=== PATIENT | male | born 1950 | race African-American/Black ===

== ENCOUNTER 2016-09-29 17:42 | Inpatient (IN) | payer MEDICARE, OTHER ==
[~2016-09-29] VITALS: Ht 175.3 cm; Wt 91.6 kg
[~2016-09-29 17:42] MED LIST: ACETAMINOP650 MG/20. GT; ACETAMINOPHEN325 M1 GT; ACIDOPHILUS1 EAC6 GT; ALBUTEROL2.5 MG/3 M HHN; ALBUTEROL2.5 MG/3 M INH; ATROVENT HFA12.9 GM IH; BISACODYL5 MG ORAL; BISACODYL5 MG RECTAL; CALCIUM + D SO1 EACH GT; CARAFATE1 G1 GT; CARDURA1 MG GT; CATAPRES0.1 MG GT; CEFEPIME HCL1 GM IVPB; CEFEPIME-D1 GM/50 ML IVPB; CLOTRIMAZOLE15 GM TOPIC; COLISTIN150 MG INH; COMBIVENT2 PUFFS INH; COMPLETE M9 MG/15 M1 GT; CRANBERRY450 M4 PO; CULTURELLE1 EACH GT; DEXTROSE 50%-W500 ML IV; DOXAZOSIN MESYLA1 MG GT; DSS100 MG GT; DULCOLAX STOOL100 M1 RECTAL; DULCOLAX10 MG RC; FINASTERIDE5 MG GT; FLAGYL500 MG GT; FLEET ENEMA133 ML RECTAL; FLOMAX0.4 MG GT; HEPARIN SO5000 UNIT2 SUBQ; HEPARIN1000 UNIT/ SQ; LANTUS SOL100 UNIT/1 SUBQ; LEVEMIR FL100 UNIT/1 SUBQ; LEVEMIR100 UNIT/1 SUBQ; LOPRESSOR25 M1 GT; METOPROLOL SUCC25 MG GT; MILK OF MA400 MG/51 GT; MOM30 ML GT; MULTIVITAMINS1 EAC8 GT; NORVASC2.5 MG GT; NORVASC2.5 MG ORAL; NOVOLOG100 UNIT/3 SUBQ; NOVOLOG100 UNITS1 SUBQ; POTASSIUM CHLO10 MEQ GT; PROMOD946 ML GT; PROSCAR5 MG GT; ROBITUSSIN15 M1 GT; ROBITUSSIN15 M1 PO; SALINE 10ML FLU10 ML IVF; TUMS500 MG GT; TYLENOL 8 HOUR650 M1 GT; TYLENOL650 MG/20. GT; VITAMIN C500 M1 GT; [UNRECOGNIZED DRUG - OTHER] GT; [UNRECOGNIZED DRUG - OTHER] GT
[2016-09-29] MEDS ORDERED: JANUVIA25 MG GT (18:00)
[2016-09-29 18:08] LABS: APPEARANCE,URINE CLEAR; KETONES,URINE NEGATIVE (NEGATIVE); LEUKOCYTE ESTERASE ,URINE 1+ (NEGATIVE); NITRITE,URINE POSITIVE (NEGATIVE); PH,URINE 5 (4.5-8.0); PROTEIN,URINE 2+ (NEGATIVE); UROBILINOGEN,URINE NORMAL MG/DL (0.0-1.0)
[2016-09-29 18:10] LABS: EOSINOPHILS % (AUTO) 0.6 % (0.0-3.0); LYMPHOCYTES % (AUTO) 15.2 % (20.0-45.0); MEAN CORPUSCULAR HEMOGLOBIN 32.3 PG (27.0-31.0); MEAN CORPUSCULAR HGB CONC 34.5 G/DL (32.0-36.0); MEAN CORPUSCULAR VOLUME 94 FL (80-99); MEAN PLATELET VOLUME 12.1 FL (6.5-10.1); MONOCYTES % (AUTO) 8.4 % (1.0-10.0); NEUTROPHILS % (AUTO) 74.8 % (45.0-75.0); PLATELET COUNT 242 K/UL (150-450); RED BLOOD COUNT 4.61 M/UL (4.70-6.10); RED CELL DISTRIBUTION WIDTH 13.8 % (11.6-14.8); WHITE BLOOD COUNT 16.4 K/UL (4.8-10.8)
[2016-09-29 18:14] LABS: BACTERIA,URINE FEW /HPF; YEAST,URINE MODERATE /HPF
[2016-09-29 18:15] LABS: TROPONIN I < 0.30 ng/mL (<=0.30)
[2016-09-29 18:19] LABS: ALANINE AMINOTRANSFERASE 29 U/L (3-41); ALBUMIN/GLOBULIN RATIO 0.9 (1.0-2.7); ANION GAP 14 (5-15); ASPARTATE AMINO TRANSFERASE 37 U/L (5-40); CARBON DIOXIDE 29 mEQ/L (20-30); CHLORIDE 93 mEQ/L (98-107); CREATININE 0.9 mg/dL (0.7-1.2); GLOMERULAR FILTRATION RATE > 60 mL/min (>60); HEMOLYSIS 7; SODIUM 136 mEQ/L (135-145); TOTAL PROTEIN 7.1 g/dL (6.6-8.7)
[2016-09-29 18:29] LABS: CKMB 2.2 ng/mL (< 6.7)
[2016-09-29] MEDS ORDERED: Acetaminophen 650mg/20.3ml GT ONE (18:30)
[2016-09-29] MEDS ORDERED: Cefepime HCl 1 GM in NS 55 ML IV ONE (19:00)
[2016-09-29] MEDS ORDERED: Azithromycin 500 MG in NS 275 ML IV ONE (19:00)
[2016-09-29 19:01] VITALS: BP 117/70
[2016-09-29] MEDS ORDERED: Cefepime 1gm vial ONE (19:01)
[2016-09-29] MEDS ORDERED: Milk of Magnesia 30ml Ud GT PRN (19:15)
[2016-09-29] MEDS ORDERED: Acetaminophen 650mg/20.3ml GT PRN (19:15)
[2016-09-29] MEDS ORDERED: Albuterol ud Inhalation HHN PRN (19:15)
[2016-09-29 20:31] VITALS: BP 115/67
[2016-09-29] MEDS ORDERED: Azithromycin Inj IV ONE (20:31)
[2016-09-29] MEDS ORDERED: Doxazosin 1mg Tab GT SCH (21:00)
[2016-09-29] MEDS ORDERED: Levemir Flexpen SUBQ SCH ×2 (21:00→23:00)
[2016-09-29] MEDS ORDERED: Heparin 5000 units/ml inj SUBQ SCH (21:00)
[2016-09-29 21:08] VITALS: BP 117/71
[2016-09-29 21:36] VITALS: BP 120/78
--- NOTE | 2016-09-29 21:50 | Emergency Room Report ---
History of Present Illness General Chief Complaint: Altered Level of Consciousness Source: EMS Present Illness HPI 66-year-old male presents ED for evaluation. Per EMS patient noted to be tachycardic with fever at skilled nursing starting today. Patient has trach. has G-tube. patient febrile in triage. Patient unable to provide any additional history at this time. No reported pain or shortness of breath. No nausea vomiting. No other aggravating or relieving factors. No other associated symptoms Allergies: Coded Allergies: No Known Allergies (Unverified , 02/11/13) Patient History Past Medical History: DM, COPD, seizures Past Surgical History: other - trach, gtube Pertinent Family History: none Social History: Denies: alcohol use, drug use, smoking Immunizations: UTD Reviewed Nursing Documentation: PMH: Agreed, PSxH: Agreed Nursing Documentation-PMH Past Medical History: No History, Except For Hx Cardiac Problems: Yes Hx Hypertension: Yes - RESP FAILURE, PNEUMONIA Hx Pacemaker: No Hx Asthma: No Hx COPD: Yes Hx Diabetes: Yes - TYPE 2, UTI, PARAPLEGIA Hx Cancer: No Hx Gastrointestinal Problems: Yes - G-tube Hx Dialysis: No Hx Neurological Problems: Yes - Paraplegia, Encephalopathy Hx Cerebrovascular Accident: Yes Hx Dementia: Yes Hx Seizures: Yes Hx Epilepsy: Yes Hx Paralysis: Yes - quadriplegic Hx Aphasia: Yes Hx Neurologic Surgery: No Hx Brain Shunt: No Review of Systems All Other Systems: negative except mentioned in HPI Physical Exam Vital Signs Date Time Temp Pulse Resp B/P Pulse Ox O2 Delivery O2 Flow Rate FiO2 09/29/16 17:35 100.9 123 28 119/80 97 09/29/16 19:01 Trach Collar 6.0 Sp02 EP Interpretation: reviewed, normal General Appearance: no apparent distress, lethargic Head: normocephalic Eyes: bilateral eye PERRL, bilateral eye normal inspection ENT: hearing grossly normal, normal pharynx, no angioedema, normal voice Neck: tracheotomy Respiratory: crackles Cardiovascular #1: no edema, tachycardia Gastrointestinal: normal inspection Rectal: deferred Genitourinary: no CVA tenderness Musculoskeletal: normal inspection Neurologic: other - ams Psychiatric: other - ams Skin: normal inspection Lymphatic: normal inspection Medical Decision Making Diagnostic Impression: Primary Impression: UTI (urinary tract infection) Qualified Codes: N39.0 - Urinary tract infection, site not specified Additional Impressions: Pneumonia Qualified Codes: J18.9 - Pneumonia, unspecified organism Leukocytosis Qualified Codes: D72.829 - Elevated white blood cell count, unspecified Respiratory failure, chronic Qualified Codes: J96.10 - Chronic respiratory failure, unspecified whether with hypoxia or hypercapnia ER Course Hospital Course 66-year-old male presents to ED with tachycardia, fever times one day Differential diagnoses include: Pneumonia, UTI, sepsis, dehydration, MO/ unstable angina Clinical course Patient placed on stretcher. On bus monitor with stable vitals are ED course. After initial history and physical, I ordered labs, IV fluids, EKG, chest x-ray, blood cultures, UA. Labs - electrolytes ok, noted leukocytosis, troponins negative, UA grossly positive for UTI EKG - sinus tachycardia CXR - infiltrate noted Abx given. tachycardia improving with IVFs. Case discussed with Dr Lee and they agreed to admit patient to their service for further care and support I feel this is a highly complex case requiring extensive working including EKG/ Rhythm strip, Xray/CT/US, Blood/urine lab work, repeat exams while in ED, and administration of strong opiates/narcotics for pain control, admission to hospital or close patient follow up. Diagnosis - UTI, pneumonia, leukocytosis, resp failure chronic Patient admitted to telemetry in serious condition Labs Test 09/29/16 17:30 White Blood Count 16.4 K/UL (4.8-10.8) Red Blood Count 4.61 M/UL (4.70-6.10) Hemoglobin 14.9 G/DL (14.2-18.0) Hematocrit 43.1 % (42.0-52.0) Mean Corpuscular Volume 94 FL (80-99) Mean Corpuscular Hemoglobin 32.3 PG (27.0-31.0) Mean Corpuscular Hemoglobin Concent 34.5 G/DL (32.0-36.0) Red Cell Distribution Width 13.8 % (11.6-14.8) Platelet Count 242 K/UL (150-450) Mean Platelet Volume 12.1 FL (6.5-10.1) Neutrophils (%) (Auto) 74.8 % (45.0-75.0) Lymphocytes (%) (Auto) 15.2 % (20.0-45.0) Monocytes (%) (Auto) 8.4 % (1.0-10.0) Eosinophils (%) (Auto) 0.6 % (0.0-3.0) Basophils (%) (Auto) 1.0 % (0.0-2.0) Urine Color Pale yellow Urine Appearance Clear Urine pH 5 (4.5-8.0) Urine Specific [place] 1.015 (1.005-1.035) Urine Protein 2+ (NEGATIVE) Urine Glucose (UA) Negative (NEGATIVE) Urine Ketones Negative (NEGATIVE) Urine Occult Blood 3+ (NEGATIVE) Urine Nitrite Positive (NEGATIVE) Urine Bilirubin Negative (NEGATIVE) Urine Urobilinogen Normal MG/DL (0.0-1.0) Urine Leukocyte Esterase 1+ (NEGATIVE) Urine RBC 2-4 /HPF (0 - 0) Urine WBC 2-4 /HPF (0 - 0) Urine Squamous Epithelial Cells None /LPF (NONE/OCC) Urine Bacteria Few /HPF (NONE) Urine Yeast Moderate /HPF (NONE) Sodium Level 136 mEQ/L (135-145) Potassium Level 4.0 mEQ/L (3.4-4.9) Chloride Level 93 mEQ/L (98-107) Carbon Dioxide Level 29 mEQ/L (20-30) Anion Gap 14 (5-15) Blood Urea Nitrogen 21 mg/dL (7-23) Creatinine 0.9 mg/dL (0.7-1.2) Estimat Glomerular Filtration Rate > 60 mL/min (>60) Glucose Level 250 mg/dL (74-106) Lactic Acid Level 1.90 mmol/L (0.66-2.22) Calcium Level 9.0 mg/dL (8.6-10.2) Total Bilirubin 0.4 mg/dL (0.0-1.2) Aspartate Amino Transf (AST/SGOT) 37 U/L (5-40) Alanine Aminotransferase (ALT/SGPT) 29 U/L (3-41) Alkaline Phosphatase 89 U/L (40-129) Total Creatine Kinase 514 U/L (38-174) Creatine Kinase MB 2.2 ng/mL (< 6.7) Creatine Kinase MB Relative Index 0.4 Troponin I < 0.30 ng/mL (<=0.30) Pro-B-Type Natriuretic Peptide 492 pg/mL (0-125) Total Protein 7.1 g/dL (6.6-8.7) Albumin 3.4 g/dL (3.5-5.2) Globulin 3.7 g/dL Albumin/Globulin Ratio 0.9 (1.0-2.7) EKG Diagnostic Results Rate: tachycardiac Rhythm: NSR ST Segments: no acute changes ASA given to the pt in ED: No Chest X-Ray Diagnostic Results EP Interpretation: Yes Findings: no pneumothorax, no acute cardiopulmonary disease, other - consolidation noted RLL Number of Views: 1 Last Vital Signs Date Time Temp Pulse Resp B/P Pulse Ox O2 Delivery O2 Flow Rate FiO2 09/29/16 21:36 97.7 98 29 120/78 15 Trach Collar 6.0 Status: improved Disposition: ADMITTED INPATIENT Condition: Serious Referrals: ANNE LEE (PCP) JORGE NOYOLA M.D. Sep 29, 2016 21:50
[2016-09-29] MEDS ORDERED: Colistin 150mg vial IVPB SCH (22:00)
[2016-09-29] MEDS: Sucralfate 1gm tab GT SCH (22:27)
[2016-09-29] MEDS: Metoprolol 25mg tab GT SCH (22:28)
[2016-09-29] MEDS: Heparin 5000 units/ml inj SUBQ SCH (22:28)
[2016-09-29] MEDS: Colistin for inhalation INH SCH (23:15)
[2016-09-30] VITALS: BP 123/78
[2016-09-30 04:00] VITALS: BP 111/68
[2016-09-30 08:00] VITALS: BP 121/73
[2016-09-30] MEDS: Lactobacillus-GG tablet ORAL SCH ×2 (09:11→17:44)
[2016-09-30] MEDS: Sucralfate 1gm tab GT SCH ×4 (09:11→21:13)
[2016-09-30] MEDS: Metoprolol 25mg tab GT SCH ×2 (09:11→21:13)
[2016-09-30] MEDS: Tums 500mg GT SCH (09:11)
[2016-09-30] MEDS: Ascorbic Acid 500mg tab GT SCH (09:11)
[2016-09-30] MEDS: Tamsulosin 0.4mg cap GT SCH (09:11)
[2016-09-30] MEDS: Heparin 5000 units/ml inj SUBQ SCH ×2 (09:13→21:12)
[2016-09-30] MEDS: Levemir Flexpen SUBQ SCH ×2 (09:14→21:08)
[2016-09-30 09:19] LABS: ABG ALLEN TEST POSITIVE; ABG BASE EXCESS 3.5
[2016-09-30] MEDS: Cefepime HCl 1 GM in NS 55 ML IVPB SCH ×2 (09:43→21:07)
[2016-09-30 09:52] LABS: EOSINOPHILS % (AUTO) 0.7 % (0.0-3.0); LYMPHOCYTES % (AUTO) 19.7 % (20.0-45.0); MEAN CORPUSCULAR HEMOGLOBIN 30.7 PG (27.0-31.0); MEAN CORPUSCULAR VOLUME 93 FL (80-99); MEAN PLATELET VOLUME 13.4 FL (6.5-10.1); NEUTROPHILS % (AUTO) 65.6 % (45.0-75.0); PLATELET COUNT 266 K/UL (150-450); RED CELL DISTRIBUTION WIDTH 13.5 % (11.6-14.8); WHITE BLOOD COUNT 8.7 K/UL (4.8-10.8)
[2016-09-30 10:10] LABS: ALANINE AMINOTRANSFERASE 23 U/L (3-41); ALBUMIN/GLOBULIN RATIO 0.8 (1.0-2.7); ANION GAP 13 (5-15); ASPARTATE AMINO TRANSFERASE 28 U/L (5-40); CALCIUM 8.1 mg/dL (8.6-10.2); CARBON DIOXIDE 29 mEQ/L (20-30); CHLORIDE 100 mEQ/L (98-107); CREATININE 0.7 mg/dL (0.7-1.2); GLOMERULAR FILTRATION RATE > 60 mL/min (>60); HEMOLYSIS 2; POTASSIUM 4.1 mEQ/L (3.4-4.9); SODIUM 142 mEQ/L (135-145)
[2016-09-30] MEDS: Colistin for inhalation INH SCH (10:11)
--- NOTE | 2016-09-30 10:30 | Diagnostic Imaging Report ---
Indication: Shortness of breath Technique: One view of the chest Comparison: 2014 Findings: There is persistent marked elevation right hemidiaphragm. Atelectatic changes in the right perihilar region are demonstrated. There is some infiltrate in the left perihilar region. There is possibly some infiltrate at the left lung base, although this is less extensive than on the prior study. The tracheostomy Impression: Elevated right hemidiaphragm with right perihilar atelectasis Possible infiltrates in the left perihilar region and left lung base. Correlate with clinical findings
[2016-09-30 12:00] VITALS: BP 125/79
--- NOTE | 2016-09-30 14:08 | History and Physical Report ---
DATE OF ADMISSION: 09/29/2016 CHIEF COMPLAINT: Sepsis. HISTORY OF PRESENT ILLNESS: The patient is an unfortunate 66-year-old male. He has a history of chronic respiratory failure, encephalopathy, diabetes, and hypertension. He was transferred from a [facility] facility because of fevers and leukocytosis. The patient was recently diagnosed with pneumonia and had been treated with antibiotic therapy, but it failed to improve. He has had worsening congestion, leukocytosis, and fever despite aggressive antibiotic therapy in the subacute senior living. The patient is nonverbal at baseline and unable to provide any history. On evaluation in the emergency room, the [place] [address]. He was afebrile in light of failed respond to aggressive outpatient therapy. He is now admitted for further evaluation and care. PAST MEDICAL HISTORY: As above. BPH and history of leukocytosis. PAST SURGICAL HISTORY: Includes a tracheostomy and G-tube. CURRENT MEDICATIONS: Reconciled and reviewed. ALLERGIES: None. SOCIAL HISTORY: There is no known history of tobacco, ethanol, or drugs. The patient is nonverbal at baseline. FAMILY HISTORY: None. REVIEW OF SYSTEMS: Not obtainable. PHYSICAL EXAMINATION: VITAL SIGNS: Temperature 98.4 degrees, blood pressure 111/68, pulse of 88,and respirations 20. GENERAL: The patient is in no apparent distress. He is poorly responsive at baseline. HEENT: Oropharynx is clear. NECK: Supple. HEART: Regular rate and rhythm. LUNGS: Lungs are significant for bilateral rhonchi . ABDOMEN: Soft, nontender, and nondistended. EXTREMITIES: Without clubbing, cyanosis, or edema. LABORATORY DATA: [place] [address] and hemoglobin of 14. Sodium 136. CK level 14. Natriuretic peptide 492. UA was clear. Chest x-ray showed bilateral infiltrates. ASSESSMENT: This is an unfortunate male with, 1. History of chronic respiratory failure. 2. Encephalopathy. 3. Diabetes. 4. Hypertension. 5. Benign prostatic hypertrophy. 6. admitted with complaints of sepsis and pneumonia . 7. Encephalopathy. 8. Chronic respiratory failure. 9. Diabetes . 10. History of hypertension. PLAN: ID consultation. IV antibiotics. Follow up cultures. Continue respiratory treatments. We will check a blood gas. Continue DVT and stress ulcer prophylaxis. Continue outpatient diabetic regimen. Closely monitor blood sugars. Jeremiah Perkins M.D. DR: Mark JOB#: [id number] CC:
[2016-09-30 15:57] VITALS: BP 134/83
[2016-09-30 19:00] VITALS: BP 137/81
--- NOTE | 2016-09-30 20:28 | Consultation ---
DATE OF CONSULTATION: 09/30/2016 NOTE: "POOR AUDIO QUALITY" PULMONARY CONSULTATION REASON FOR ADMISSION: Respiratory failure, congestion. HISTORY OF PRESENT ILLNESS: The patient is a 66-year-old unfortunate male, who is chronically tracheostomy dependent. The patient was noted to be tachycardic and more congested. The patient was transferred by 911 to the emergency room. The patient is unable to provide prior medication history. The patient had been fairly stable from the pulmonary standpoint. No nausea or vomiting. No associated symptoms. The patient was transferred to the emergency room and stabilized. The patient is now comfortable without significant respiratory distress. The patient admitted to telemetry floor. I was asked by Dr. Perkins to evaluate and recommend further. The patient has had multiple medical problems and chronic leukocytosis. PAST MEDICAL HISTORY: The patient's past medical history is notable for diabetes, COPD, CVA, seizures, tracheostomy, G-tube, chronic encephalopathy, chronic urinary retention, chronic Krishnan catheter, chronic leukocytosis, and the patient had prior pneumonia, paraplegia, and history of dementia. MEDICATIONS: SOCIAL HISTORY: The patient is a resident of [facility]. Nonsmoker and nondrinker. FAMILY HISTORY: Not available. REVIEW OF SYSTEMS: Unavailable due to the patient's present state. PHYSICAL EXAMINATION: GENERAL: The patient is a well-developed male, comfortable. VITAL SIGNS: BP 130/70, 14, the patient's saturation on six liters 98, temperature is 98.4 degrees, heart rate 88. HEENT: Fairly negative. Pupils are sluggish, but reactive. NECK: Supple. Tracheostomy midline. LUNGS: Coarse breath sounds. Some rhonchi diffusely.no wheeze CARDIAC: S1 and S2. Regular rate and rhythm. without no murmurs or rubs. ABDOMEN: Soft and nontender. G-tube in place no HSM or distention EXTREMITIES: No cyanosis or clubbing. There is no edema. NEUROLOGIC: Withdrawn. difficult to assess krishnan LABORATORY AND DIAGNOSTIC DATA: Lab data reviewed. White blood cell count 15.4, hematocrit 33, platelets noted. Chemistry essentially normal. Total CK 514. BNP 492. The patient's telemetry reviewed. Chest x-ray with no infiltrate. EKG with sinus tachycardia. all labs reviewed IMPRESSION: 1. Respiratory failure. 2. Congestion. 3. Pneumonia, likely prison-acquired. 4. Possible urinary tract infection. 5. Chronic encephalopathy. 6. History of stroke. 7. Urinary retention. 8. Benign prostatic hyperplasia. RECOMMENDATIONS: 1. Antibiotics. 2. Respiratory care. 3. Aspiration precautions. 4. Recommend to follow up and monitor for changes. White blood cell count is chronically elevated. 5. ID evaluation. 6. Monitor blood sugars and adjust. 7. DVT prophylaxis. 8. Diabetic management. 9. Monitor closely for changes. Silver Diaz M.D. DR: JULIA JOB#: [id number] CC: MARIA DEL CARMEN
[2016-10-01] VITALS: BP 139/84
[2016-10-01 04:00] VITALS: BP 141/72
[2016-10-01 07:37] LABS: BASOPHILS % (AUTO) 0.8 % (0.0-2.0); EOSINOPHILS % (AUTO) 0.9 % (0.0-3.0); LYMPHOCYTES % (AUTO) 23.6 % (20.0-45.0); MEAN CORPUSCULAR HEMOGLOBIN 30.6 PG (27.0-31.0); MEAN CORPUSCULAR HGB CONC 32.5 G/DL (32.0-36.0); MEAN CORPUSCULAR VOLUME 94 FL (80-99); MEAN PLATELET VOLUME 11.7 FL (6.5-10.1); MONOCYTES % (AUTO) 11.1 % (1.0-10.0); NEUTROPHILS % (AUTO) 63.6 % (45.0-75.0); PLATELET COUNT 289 K/UL (150-450); RED BLOOD COUNT 4.28 M/UL (4.70-6.10); RED CELL DISTRIBUTION WIDTH 13.4 % (11.6-14.8); WHITE BLOOD COUNT 9.7 K/UL (4.8-10.8)
[2016-10-01 07:48] VITALS: BP 133/81
[2016-10-01] MEDS: Sucralfate 1gm tab GT SCH ×4 (08:18→22:52)
[2016-10-01] MEDS: Tums 500mg GT SCH (08:18)
[2016-10-01] MEDS: Tamsulosin 0.4mg cap GT SCH (08:18)
[2016-10-01] MEDS: Ascorbic Acid 500mg tab GT SCH (08:19)
[2016-10-01] MEDS: Lactobacillus-GG tablet ORAL SCH ×2 (08:19→19:03)
[2016-10-01] MEDS: Metoprolol 25mg tab GT SCH ×2 (08:19→22:52)
[2016-10-01] MEDS: Cefepime HCl 1 GM in NS 55 ML IVPB SCH ×2 (08:20→22:47)
[2016-10-01] MEDS: Heparin 5000 units/ml inj SUBQ SCH ×2 (08:21→22:48)
[2016-10-01] MEDS: Levemir Flexpen SUBQ SCH ×2 (08:22→22:48)
--- NOTE | 2016-10-01 08:43 | Pulmonology Progress Note ---
Assessment/Plan Assessment/Plan IMPRESSION: 1. Respiratory failure. 2. Congestion. 3. Pneumonia, likely long-term-acquired. 4. Possible urinary tract infection. 5. Chronic encephalopathy. 6. History of stroke. 7. Urinary retention. 8. Benign prostatic hyperplasia. PLAN care noted suction respiratory care monitor for change close follow up monitor as is ID follow up aspiration precautions impression, plan, and exam edited and reviewed in detail care discussed with RN Subjective ROS Limited/Unobtainable: Yes Allergies: Coded Allergies: No Known Allergies (Unverified , 02/11/13) Subjective withdrawn poor LOC Objective Last 24 Hour Vital Signs Date Time Temp Pulse Resp B/P Pulse Ox O2 Delivery O2 Flow Rate FiO2 10/01/16 08:19 82 133/81 10/01/16 07:48 97.7 82 20 133/81 95 T-piece 10/01/16 04:00 98.2 91 28 141/72 95 T-piece 10/01/16 04:00 6.0 30 10/01/16 04:00 91 10/01/16 01:30 T-piece 6.0 28 10/01/16 01:30 95 T-piece 6.0 28 10/01/16 00:00 87 10/01/16 00:00 98.4 89 28 139/84 94 Nasal Cannula 2.0 10/01/16 00:00 6.0 30 09/30/16 21:13 95 137/81 09/30/16 21:07 T-piece 6.0 28 09/30/16 21:06 T-piece 6.0 28 09/30/16 20:00 6.0 30 09/30/16 20:00 95 09/30/16 19:45 T-piece 6.0 28 09/30/16 19:45 93 T-piece 6.0 28 09/30/16 19:00 98.2 95 20 137/81 94 Trach Collar 6.0 09/30/16 16:00 6.0 30 09/30/16 16:00 95 09/30/16 15:57 98.4 94 20 134/83 92 Trach Collar 6.0 09/30/16 12:00 91 09/30/16 12:00 6.0 30 09/30/16 12:00 99.1 89 30 125/79 95 Trach Collar 40 09/30/16 10:23 87 18 97 T-piece 6.0 35 09/30/16 10:11 94 T-piece 6.0 35 09/30/16 10:11 89 18 94 T-piece 6.0 35 09/30/16 10:11 35 09/30/16 10:11 T-piece 6.0 35 09/30/16 09:11 95 121/73 Intake and Output 09/30/16 10/01/16 19:00 07:00 Intake Total 645 ml 475 ml Output Total 400 ml 800 ml Balance 245 ml -325 ml Free Water 150 ml 200 ml IV Total 110 ml Tube Feeding 385 ml 275 ml Output Urine Total 400 ml 800 ml # Bowel Movements 2 1 Objective GENERAL: The patient is a well-developed male, comfortable. HEENT: Fairly negative. Pupils are sluggish, but reactive. NECK: Supple. Tracheostomy midline. LUNGS: Coarse breath sounds. Some rhonchi diffusely. CARDIAC: S1 and S2. Regular rate and rhythm. no murmurs or rubs. ABDOMEN: Soft and nontender. G-tube in place no HSM EXTREMITIES: No cyanosis or clubbing. There is no edema. NEUROLOGIC: Withdrawn. Microbiology Date/Time Source Procedure Growth Status 09/29/16 17:45 Blood Blood Culture - Preliminary NO GROWTH AFTER 24 HOURS Resulted 09/29/16 17:30 Blood Blood Culture - Preliminary NO GROWTH AFTER 24 HOURS Resulted 09/29/16 17:30 Urine,Clean Catch Urine Culture - Preliminary Staphylococcus Aureus YEAST Resulted Laboratory Tests 09/30/16 09:08: Arterial Blood pH 7.441, Arterial Blood Partial Pressure CO2 42.0, Arterial Blood Partial Pressure O2 59.1L, Arterial Blood HCO3 28.0H, Arterial Blood Oxygen Saturation 91.6L, Arterial Blood Base Excess 3.5, Nghia Test Positive 09/30/16 09:30: White Blood Count 8.7, Red Blood Count 4.20L, Hemoglobin 12.9L, Hematocrit 39.1L , Mean Corpuscular Volume 93, Mean Corpuscular Hemoglobin 30.7, Mean Corpuscular Hemoglobin Concent 33.0, Red Cell Distribution Width 13.5, Platelet Count 266, Mean Platelet Volume 13.4H, Neutrophils (%) (Auto) 65.6, Lymphocytes (%) (Auto) 19.7L, Monocytes (%) (Auto) 13.0H, Eosinophils (%) (Auto) 0.7, Basophils (%) (Auto) 1.0, Sodium Level 142, Potassium Level 4.1, Chloride Level 100, Carbon Dioxide Level 29, Anion Gap 13, Blood Urea Nitrogen 15, Creatinine 0.7, Estimat Glomerular Filtration Rate > 60, Glucose Level 178H, Calcium Level 8.1L, Total Bilirubin 0.2, Aspartate Amino Transf (AST/SGOT) 28, Alanine Aminotransferase (ALT/SGPT) 23, Alkaline Phosphatase 65, Total Protein 6.0L, Albumin 2.8L, Globulin 3.2, Albumin/Globulin Ratio 0.8L 10/01/16 06:55: White Blood Count 9.7, Red Blood Count 4.28L, Hemoglobin 13.1L, Hematocrit 40.3L , Mean Corpuscular Volume 94, Mean Corpuscular Hemoglobin 30.6, Mean Corpuscular Hemoglobin Concent 32.5, Red Cell Distribution Width 13.4, Platelet Count 289, Mean Platelet Volume 11.7H, Neutrophils (%) (Auto) 63.6, Lymphocytes (%) (Auto) 23.6, Monocytes (%) (Auto) 11.1H, Eosinophils (%) (Auto) 0.9, Basophils (%) (Auto) 0.8, Total Creatine Kinase 199H Current Medications Medications (Trade) Dose Ordered Sig/Magda Route PRN Reason Start Time Stop Time Status Last Admin Dose Admin Acetaminophen (Tylenol) 650 mg Q4H PRN GT Prn Headache/Temp > 101 09/29/16 19:15 10/29/16 19:14 Albuterol Sulfate (Proventil) 2.5 mg Q6H PRN HHN Shortness of Breath 09/29/16 19:15 10/04/16 19:14 Ascorbic Acid (Vitamin C) 500 mg DAILY GT 09/30/16 09:00 10/30/16 08:59 10/01/16 08:19 Bisacodyl (Dulcolax) 10 mg DAILYPRN PRN RECTAL Constipation 09/30/16 09:00 10/30/16 08:59 Calcium Carbonate (Tums) 500 mg DAILY GT 09/30/16 09:00 10/30/16 08:59 10/01/16 08:18 Cefepime HCl/ Sodium Chloride (Maxipime/Sodium Chloride) 55 ml @ 110 mls/hr EVERY 12 HOURS IVPB 09/30/16 09:00 10/07/16 08:59 10/01/16 08:20 Clonidine HCl (Catapres) 0.1 mg Q6H PRN GT SBP>160 09/29/16 19:15 10/29/16 19:14 Finasteride (Proscar) 5 mg DAILY GT 09/30/16 09:00 10/30/16 08:59 10/01/16 08:19 Heparin Sodium (Porcine) (Heparin 5000 units/ml) 5,000 units EVERY 12 HOURS SUBQ 09/29/16 21:00 10/29/16 20:59 10/01/16 08:21 Insulin Detemir (Levemir) 40 units Q12HR SUBQ 09/30/16 09:00 10/30/16 08:59 10/01/16 08:22 Lactobacillus Acidophilus (Culturelle) 1 tab TWICE A DAY ORAL 09/30/16 09:00 10/30/16 08:59 10/01/16 08:19 Magnesium Hydroxide (Mom) 30 ml DAILYPRN PRN GT Constipation 09/29/16 19:15 10/29/16 19:14 Metoprolol Tartrate (Lopressor) 25 mg EVERY 12 HOURS GT 09/29/16 21:00 10/29/16 20:59 10/01/16 08:19 Multivitamins (Multivitamins) 1 tab DAILY ORAL 09/30/16 09:00 10/30/16 08:59 10/01/16 08:19 Sitagliptin Phosphate (Januvia) 100 mg ACBREAKFAST GT 09/30/16 06:30 10/30/16 06:29 10/01/16 06:02 Sucralfate (Carafate) 1 gm FOUR TIMES A DAY GT 09/29/16 22:00 10/29/16 21:59 10/01/16 08:18 Tamsulosin HCl 0.4 mg 0.4 mg DAILY GT 09/30/16 09:00 10/30/16 08:59 10/01/16 08:18 JO-ANN SAUCEDO Oct 01, 2016 08:43
--- NOTE | 2016-10-01 08:44 | General Progress Note ---
Assessment/Plan Problem List: (1) Encephalopathy acute ICD Codes: G93.40 - Encephalopathy, unspecified SNOMED: 9684992 (2) Pneumonia ICD Codes: J18.9 - Pneumonia, unspecified organism SNOMED: 614091001 (3) G tube feedings ICD Codes: Z93.1 - G tube feedings SNOMED: 737288472 Status: not improved Assessment/Plan hold feeds monitor congestion suctioning/resp rx kub and cxr IVF abx follow up cultures Subjective ROS Limited/Unobtainable: No Constitutional: Reports: malaise, weakness HEENT: Reports: no symptoms Cardiovascular: Reports: no symptoms Respiratory: Reports: cough, shortness of breath, sputum Gastrointestinal/Abdominal: Reports: difficulty swallowing Genitourinary: Reports: no symptoms Neurologic/Psychiatric: Reports: pre-existing deficit, seizure Endocrine: Reports: no symptoms Hematologic/Lymphatic: Reports: no symptoms Allergies: Coded Allergies: No Known Allergies (Unverified , 02/11/13) All Systems: reviewed and negative except above Subjective more congested. [place] secretions. ?feedings. no residual. Objective Last 24 Hour Vital Signs Date Time Temp Pulse Resp B/P Pulse Ox O2 Delivery O2 Flow Rate FiO2 10/01/16 08:19 82 133/81 10/01/16 07:48 97.7 82 20 133/81 95 T-piece 10/01/16 04:00 98.2 91 28 141/72 95 T-piece 10/01/16 04:00 6.0 30 10/01/16 04:00 91 10/01/16 01:30 T-piece 6.0 28 10/01/16 01:30 95 T-piece 6.0 28 10/01/16 00:00 87 10/01/16 00:00 98.4 89 28 139/84 94 Nasal Cannula 2.0 10/01/16 00:00 6.0 30 09/30/16 21:13 95 137/81 09/30/16 21:07 T-piece 6.0 28 09/30/16 21:06 T-piece 6.0 28 09/30/16 20:00 6.0 30 09/30/16 20:00 95 09/30/16 19:45 T-piece 6.0 28 09/30/16 19:45 93 T-piece 6.0 28 09/30/16 19:00 98.2 95 20 137/81 94 Trach Collar 6.0 09/30/16 16:00 6.0 30 09/30/16 16:00 95 09/30/16 15:57 98.4 94 20 134/83 92 Trach Collar 6.0 09/30/16 12:00 91 09/30/16 12:00 6.0 30 09/30/16 12:00 99.1 89 30 125/79 95 Trach Collar 40 09/30/16 10:23 87 18 97 T-piece 6.0 35 09/30/16 10:11 94 T-piece 6.0 35 09/30/16 10:11 89 18 94 T-piece 6.0 35 09/30/16 10:11 35 09/30/16 10:11 T-piece 6.0 35 09/30/16 09:11 95 121/73 Intake and Output 09/30/16 10/01/16 19:00 07:00 Intake Total 645 ml 475 ml Output Total 400 ml 800 ml Balance 245 ml -325 ml Free Water 150 ml 200 ml IV Total 110 ml Tube Feeding 385 ml 275 ml Output Urine Total 400 ml 800 ml # Bowel Movements 2 1 Laboratory Tests 09/30/16 09:08: Arterial Blood pH 7.441, Arterial Blood Partial Pressure CO2 42.0, Arterial Blood Partial Pressure O2 59.1L, Arterial Blood HCO3 28.0H, Arterial Blood Oxygen Saturation 91.6L, Arterial Blood Base Excess 3.5, Nghia Test Positive 09/30/16 09:30: White Blood Count 8.7, Red Blood Count 4.20L, Hemoglobin 12.9L, Hematocrit 39.1L , Mean Corpuscular Volume 93, Mean Corpuscular Hemoglobin 30.7, Mean Corpuscular Hemoglobin Concent 33.0, Red Cell Distribution Width 13.5, Platelet Count 266, Mean Platelet Volume 13.4H, Neutrophils (%) (Auto) 65.6, Lymphocytes (%) (Auto) 19.7L, Monocytes (%) (Auto) 13.0H, Eosinophils (%) (Auto) 0.7, Basophils (%) (Auto) 1.0, Sodium Level 142, Potassium Level 4.1, Chloride Level 100, Carbon Dioxide Level 29, Anion Gap 13, Blood Urea Nitrogen 15, Creatinine 0.7, Estimat Glomerular Filtration Rate > 60, Glucose Level 178H, Calcium Level 8.1L, Total Bilirubin 0.2, Aspartate Amino Transf (AST/SGOT) 28, Alanine Aminotransferase (ALT/SGPT) 23, Alkaline Phosphatase 65, Total Protein 6.0L, Albumin 2.8L, Globulin 3.2, Albumin/Globulin Ratio 0.8L 10/01/16 06:55: White Blood Count 9.7, Red Blood Count 4.28L, Hemoglobin 13.1L, Hematocrit 40.3L , Mean Corpuscular Volume 94, Mean Corpuscular Hemoglobin 30.6, Mean Corpuscular Hemoglobin Concent 32.5, Red Cell Distribution Width 13.4, Platelet Count 289, Mean Platelet Volume 11.7H, Neutrophils (%) (Auto) 63.6, Lymphocytes (%) (Auto) 23.6, Monocytes (%) (Auto) 11.1H, Eosinophils (%) (Auto) 0.9, Basophils (%) (Auto) 0.8, Total Creatine Kinase 199H Height (Feet): 5 Height (Inches): 9.00 Weight (Pounds): 202 General Appearance: WD/WN, lethargic, confused Neck: supple Cardiovascular: regular rhythm Respiratory/Chest: crackles/rales, rhonchi - bilaterally Abdomen: normal bowel sounds, non tender, soft, no organomegaly Edema: no edema noted Arm (L), no edema noted Arm (R), no edema noted Leg (L), no edema noted Leg (R), no edema noted Pedal (L), no edema noted Pedal (R), no edema noted Generalized Neurologic: unresponsive, aphasia ANNE LEE Oct 01, 2016 08:44
[2016-10-01] MEDS: D5NS 1,000 ML IV SCH ×2 (09:14→22:46)
--- NOTE | 2016-10-01 10:33 | Diagnostic Imaging Report ---
Indication: Shortness of breath Technique: XRAY CHEST 1 V Comparison: 09/29/16 Findings: Tracheostomy is unchanged. Cardiomediastinal silhouette is stable. There is again elevation of the right hemidiaphragm with right infrahilar atelectasis or infiltrate. Bilateral interstitial opacities are again noted. Osseous structures are stable. Impression: No significant change from 09/29/16.
[2016-10-01 11:50] VITALS: BP 130/75
[2016-10-01] MEDS: Fluconazole 100mg tab ORAL SCH (13:51)
[2016-10-01] MEDS ORDERED: Vancomycin 1.5 GM in D5W 325 ML IVPB ONE (14:00)
[2016-10-01 16:00] VITALS: BP 143/91
--- NOTE | 2016-10-01 18:48 | Consultation ---
DATE OF CONSULTATION: 10/01/2016 INFECTIOUS DISEASES CONSULT CONSULTING PHYSICIAN: Jesica Alegria M.D. REFERRING PHYSICIAN: Jeremiah Perkins M.D. REASON FOR CONSULTATION: Pneumonia. HISTORY OF PRESENTING ILLNESS: This is a 66-year-old gentleman with history of diabetes, hypertension, and respiratory failure, status post tracheostomy, who [facility] with fever and leukocytosis. He was found to have pneumonia and an Infectious Diseases consultation has been obtained for antibiotics. PAST MEDICAL HISTORY: 1. History of diabetes. 2. Hypertension. 3. Encephalopathy. 4. Respiratory failure, status post tracheostomy. 5. Benign prostatic hypertrophy. 6. Status post G-tube placement. MEDICATIONS: As an inpatient, the patient is on ascorbic acid, Dulcolax, calcium carbonate, Proscar, Flomax, cefepime, Lactobacillus, multivitamin, insulin, Januvia, sucralfate, metoprolol, subcutaneous heparin, Tylenol, albuterol, clonidine, and milk of magnesia. ALLERGIES: No known drug allergies. SOCIAL HISTORY: No history of smoking, alcohol, or drug use. FAMILY HISTORY: Unknown. REVIEW OF SYSTEMS: Unable to obtain currently. PHYSICAL EXAMINATION: VITAL SIGNS: Temperature of 97.2 degrees, T-max of 99.1 degrees, pulse of 81, respiratory rate 20, blood pressure 130/75, and O2 saturation of 95%. HEENT: Pupils equally reactive to light and accommodation. Mouth appears clean without thrush. NECK: Supple. No adenopathy. No JVD. Tracheostomy site appears clean. CARDIOVASCULAR: Regular rate and rhythm. No murmurs. LUNGS: Wheezing noted bilaterally. ABDOMEN: Soft and nontender. No organomegaly. G-tube site appears clean. EXTREMITIES: No cyanosis, no clubbing, no edema. LABORATORY DATA: White count of 16.4 on 09/29/2016 and white count of 9.7 now, hemoglobin 13.1, hematocrit 40.3, MCV 94, and platelet count of 289,000 with neutrophils of 63%. Sodium 142, potassium 4.1, chloride 100, bicarbonate 29, BUN 15, creatinine 0.7, glucose 178, and calcium 8.1. Total bilirubin 0.2. AST 28, ALT 23, and alkaline phosphatase 65. CK of 199 and CK-MB 0.4. Total protein 6. Albumin 2.8. UA is showing 2 to 4 white cells. On 09/29/2016, blood cultures are negative. On 09/29/2016, urine culture is growing Staph aureus and yeast, Staph aureus more than 100,000 colonies yeast more than 100,000 colonies. Chest x-ray is showing bilateral interstitial opacities. ASSESSMENT: 1. This is a 66-year-old gentleman with history of respiratory failure and hypertension, who comes in with pneumonia. 2. He also has Staphylococcus aureus and a fungal urinary tract infection. 3. Leukocytosis is improving. PLAN: 1. Continue cefepime. 2. We will order sputum for Gram stain and culture. 3. We will start the patient on vancomycin and fluconazole. 4. We will follow up cultures and adjust antibiotics accordingly. I would like to thank, Dr. Perkins, for this consultation. Jesica Alegria M.D. DR: RANDOLPH JOB#: [id number] CC: Jeremiah Perkins M.D.
[2016-10-01 20:00] VITALS: BP 126/80
[2016-10-02] VITALS: BP 128/74
[2016-10-02] MEDS: Vancomycin 1250mg/D5W 275ml IVPB SCH ×4 (02:38→12:47)
[2016-10-02 04:00] VITALS: BP 138/88
[2016-10-02 08:15] VITALS: BP 154/91
[2016-10-02] MEDS ORDERED: D5NS 1000ml IV ONE (08:53)
[2016-10-02] MEDS ORDERED: Sterile Water Irrig 1000ml IRRIG ONE (08:53)
--- NOTE | 2016-10-02 09:04 | Infectious Diseases Prog Note ---
Assessment/Plan Assessment/Plan A: Sepsis Pneumonia UTI DM HPN Encephalopathy P; continue Cefepime & Vancomycin will f/u cultures Subjective ROS Limited/Unobtainable: Yes Allergies: Coded Allergies: No Known Allergies (Unverified , 02/11/13) Objective Vital Signs Last 24 Hour Vital Signs Date Time Temp Pulse Resp B/P Pulse Ox O2 Delivery O2 Flow Rate FiO2 10/02/16 08:15 97.2 91 20 154/91 98 T-piece 10/02/16 04:00 6.0 30 10/02/16 04:00 97.2 71 20 138/88 97 T-piece 10/02/16 04:00 67 10/02/16 01:29 97 T-piece 10.0 35 10/02/16 01:29 T-piece 10.0 35 10/02/16 00:00 76 10/02/16 00:00 97.3 70 20 128/74 97 T-piece 10/02/16 00:00 6.0 30 10/01/16 22:52 82 126/80 10/01/16 20:00 68 10/01/16 20:00 97.8 82 20 126/80 95 10/01/16 20:00 6.0 30 10/01/16 19:41 96 T-piece 10.0 35 10/01/16 19:41 T-piece 10.0 35 10/01/16 19:40 T-piece 10.0 35 10/01/16 19:40 T-piece 10.0 35 10/01/16 16:00 80 10/01/16 16:00 6.0 30 10/01/16 16:00 97.2 82 20 143/91 97 10/01/16 13:30 97 T-piece 6.0 28 10/01/16 13:30 T-piece 6.0 28 10/01/16 12:00 82 10/01/16 12:00 6.0 30 10/01/16 11:50 97.2 81 20 130/75 95 T-piece Height (Feet): 5 Height (Inches): 9.00 Weight (Pounds): 202 General Appearance: no acute distress HEENT: status post trach Respiratory/Chest: decreased breath sounds, other - on T bar Cardiovascular: normal rate Abdomen: soft, non tender, other - GT feeding Extremities: no edema Neurologic/Psychiatric: unresponsiveness Microbiology Date/Time Source Procedure Growth Status 09/29/16 17:45 Blood Blood Culture - Preliminary NO GROWTH AFTER 48 HOURS Resulted 09/29/16 17:30 Blood Blood Culture - Preliminary NO GROWTH AFTER 48 HOURS Resulted 09/29/16 17:30 Urine,Clean Catch Urine Culture - Preliminary Staphylococcus Aureus YEAST Resulted Current Medications Medications (Trade) Dose Ordered Sig/Magda Route PRN Reason Start Time Stop Time Status Last Admin Dose Admin Acetaminophen (Tylenol) 650 mg Q4H PRN GT Prn Headache/Temp > 101 09/29/16 19:15 10/29/16 19:14 Albuterol Sulfate (Proventil) 2.5 mg Q6H PRN HHN Shortness of Breath 09/29/16 19:15 10/04/16 19:14 Ascorbic Acid (Vitamin C) 500 mg DAILY GT 09/30/16 09:00 10/30/16 08:59 10/01/16 08:19 Bisacodyl (Dulcolax) 10 mg DAILYPRN PRN RECTAL Constipation 09/30/16 09:00 10/30/16 08:59 Calcium Carbonate (Tums) 500 mg DAILY GT 09/30/16 09:00 10/30/16 08:59 10/01/16 08:18 Cefepime HCl/ Sodium Chloride (Maxipime/Sodium Chloride) 55 ml @ 110 mls/hr EVERY 12 HOURS IVPB 09/30/16 09:00 10/07/16 08:59 10/01/16 22:47 Clonidine HCl (Catapres) 0.1 mg Q6H PRN GT SBP>160 09/29/16 19:15 10/29/16 19:14 Dextrose/Sodium Chloride (D5ns) 1,000 ml @ 75 mls/hr [id number] IV 10/01/16 09:00 10/31/16 08:59 10/01/16 22:46 Finasteride (Proscar) 5 mg DAILY GT 09/30/16 09:00 10/30/16 08:59 10/01/16 08:19 Fluconazole 100 mg 100 mg DAILY ORAL 10/01/16 14:00 10/08/16 13:59 10/01/16 13:51 Heparin Sodium (Porcine) (Heparin 5000 units/ml) 5,000 units EVERY 12 HOURS SUBQ 09/29/16 21:00 5/6/17 20:59 10/01/16 22:48 Insulin Detemir 40 units 40 units Q12HR SUBQ 09/30/16 09:00 10/30/16 08:59 10/01/16 22:48 Lactobacillus Acidophilus (Culturelle) 1 tab TWICE A DAY ORAL 09/30/16 09:00 10/30/16 08:59 10/01/16 19:03 Magnesium Hydroxide (Mom) 30 ml DAILYPRN PRN GT Constipation 09/29/16 19:15 10/29/16 19:14 Metoprolol Tartrate (Lopressor) 25 mg EVERY 12 HOURS GT 09/29/16 21:00 10/29/16 20:59 10/01/16 22:52 Multivitamins (Multivitamins) 1 tab DAILY ORAL 09/30/16 09:00 10/30/16 08:59 10/01/16 08:19 Sitagliptin Phosphate (Januvia) 100 mg ACBREAKFAST GT 09/30/16 06:30 10/30/16 06:29 10/01/16 06:02 Sucralfate (Carafate) 1 gm FOUR TIMES A DAY GT 09/29/16 22:00 10/29/16 21:59 10/01/16 22:52 Tamsulosin HCl 0.4 mg 0.4 mg DAILY GT 09/30/16 09:00 10/30/16 08:59 10/01/16 08:18 Vancomycin HCl (Vanco rx to dose) 1 ea DAILY PRN MISC . 10/01/16 12:00 10/31/16 11:59 Vancomycin HCl/ Dextrose (Vancomycin/D5W) 275 ml @ 183.333 mls/hr Q12HR@0200,1200 IVPB 10/02/16 02:00 10/07/16 01:59 10/02/16 02:38 JACLYN MCCANN Oct 02, 2016 09:04
--- NOTE | 2016-10-02 09:13 | Pulmonology Progress Note ---
Assessment/Plan Assessment/Plan IMPRESSION: 1. Respiratory failure. 2. Congestion. 3. Pneumonia, likely intermediate-acquired. 4. Possible urinary tract infection. 5. Chronic encephalopathy. 6. History of stroke. 7. Urinary retention. 8. Benign prostatic hyperplasia. PLAN care noted exam without substantial change suction and aspiration precautions respiratory care monitor for change close follow up monitor as is ID follow up aspiration precautions dc once stable cultures noted repeat chest XR impression, plan, and exam edited and reviewed in detail care discussed with RN Subjective ROS Limited/Unobtainable: Yes Allergies: Coded Allergies: No Known Allergies (Unverified , 02/11/13) Subjective withdrawn poor LOC Objective Last 24 Hour Vital Signs Date Time Temp Pulse Resp B/P Pulse Ox O2 Delivery O2 Flow Rate FiO2 10/02/16 08:15 97.2 91 20 154/91 98 T-piece 10/02/16 04:00 6.0 30 10/02/16 04:00 97.2 71 20 138/88 97 T-piece 10/02/16 04:00 67 10/02/16 01:29 97 T-piece 10.0 35 10/02/16 01:29 T-piece 10.0 35 10/02/16 00:00 76 10/02/16 00:00 97.3 70 20 128/74 97 T-piece 10/02/16 00:00 6.0 30 10/01/16 22:52 82 126/80 10/01/16 20:00 68 10/01/16 20:00 97.8 82 20 126/80 95 10/01/16 20:00 6.0 30 10/01/16 19:41 96 T-piece 10.0 35 10/01/16 19:41 T-piece 10.0 35 10/01/16 19:40 T-piece 10.0 35 10/01/16 19:40 T-piece 10.0 35 10/01/16 16:00 80 10/01/16 16:00 6.0 30 10/01/16 16:00 97.2 82 20 143/91 97 10/01/16 13:30 97 T-piece 6.0 28 10/01/16 13:30 T-piece 6.0 28 10/01/16 12:00 82 10/01/16 12:00 6.0 30 10/01/16 11:50 97.2 81 20 130/75 95 T-piece Intake and Output 10/01/16 10/02/16 19:00 07:00 Intake Total 1282.5 ml 1613 ml Output Total 350 ml 750 ml Balance 932.5 ml 863 ml Free Water 150 ml IV Total 1022.5 ml 1613 ml Tube Feeding 110 ml Output Urine Total 350 ml 750 ml # Voids 1 # Bowel Movements 1 Objective GENERAL: The patient is a well-developed male, comfortable. HEENT: Fairly negative. Pupils are sluggish, but reactive. NECK: Supple. Tracheostomy midline. LUNGS: Coarse breath sounds. Some rhonchi diffusely. CARDIAC: S1 and S2. Regular rate and rhythm. no murmurs or rubs. ABDOMEN: Soft and nontender. G-tube in place no HSM EXTREMITIES: No cyanosis or clubbing. There is no edema. NEUROLOGIC: Withdrawn. Microbiology Date/Time Source Procedure Growth Status 09/29/16 17:45 Blood Blood Culture - Preliminary NO GROWTH AFTER 48 HOURS Resulted 09/29/16 17:30 Blood Blood Culture - Preliminary NO GROWTH AFTER 48 HOURS Resulted 09/29/16 17:30 Urine,Clean Catch Urine Culture - Preliminary Staphylococcus Aureus YEAST Resulted Current Medications Medications (Trade) Dose Ordered Sig/Magda Route PRN Reason Start Time Stop Time Status Last Admin Dose Admin Acetaminophen (Tylenol) 650 mg Q4H PRN GT Prn Headache/Temp > 101 09/29/16 19:15 10/29/16 19:14 Albuterol Sulfate (Proventil) 2.5 mg Q6H PRN HHN Shortness of Breath 09/29/16 19:15 10/04/16 19:14 Ascorbic Acid (Vitamin C) 500 mg DAILY GT 09/30/16 09:00 10/30/16 08:59 10/01/16 08:19 Bisacodyl (Dulcolax) 10 mg DAILYPRN PRN RECTAL Constipation 09/30/16 09:00 10/30/16 08:59 Calcium Carbonate (Tums) 500 mg DAILY GT 09/30/16 09:00 10/30/16 08:59 10/01/16 08:18 Cefepime HCl/ Sodium Chloride (Maxipime/Sodium Chloride) 55 ml @ 110 mls/hr EVERY 12 HOURS IVPB 09/30/16 09:00 10/07/16 08:59 10/01/16 22:47 Clonidine HCl (Catapres) 0.1 mg Q6H PRN GT SBP>160 09/29/16 19:15 10/29/16 19:14 Dextrose/Sodium Chloride (D5ns) 1,000 ml @ 75 mls/hr [id number] IV 10/01/16 09:00 10/31/16 08:59 10/01/16 22:46 Finasteride (Proscar) 5 mg DAILY GT 09/30/16 09:00 10/30/16 08:59 10/01/16 08:19 Fluconazole 100 mg 100 mg DAILY ORAL 10/01/16 14:00 10/08/16 13:59 10/01/16 13:51 Heparin Sodium (Porcine) (Heparin 5000 units/ml) 5,000 units EVERY 12 HOURS SUBQ 09/29/16 21:00 10/29/16 20:59 10/01/16 22:48 Insulin Detemir 40 units 40 units Q12HR SUBQ 09/30/16 09:00 10/30/16 08:59 10/01/16 22:48 Lactobacillus Acidophilus (Culturelle) 1 tab TWICE A DAY ORAL 09/30/16 09:00 10/30/16 08:59 10/01/16 19:03 Magnesium Hydroxide (Mom) 30 ml DAILYPRN PRN GT Constipation 09/29/16 19:15 10/29/16 19:14 Metoprolol Tartrate (Lopressor) 25 mg EVERY 12 HOURS GT 09/29/16 21:00 10/29/16 20:59 10/01/16 22:52 Multivitamins (Multivitamins) 1 tab DAILY ORAL 09/30/16 09:00 10/30/16 08:59 10/01/16 08:19 Sitagliptin Phosphate (Januvia) 100 mg ACBREAKFAST GT 09/30/16 06:30 10/30/16 06:29 10/01/16 06:02 Sucralfate (Carafate) 1 gm FOUR TIMES A DAY GT 09/29/16 22:00 10/29/16 21:59 10/01/16 22:52 Tamsulosin HCl 0.4 mg 0.4 mg DAILY GT 09/30/16 09:00 10/30/16 08:59 10/01/16 08:18 Vancomycin HCl (Vanco rx to dose) 1 ea DAILY PRN MISC . 10/01/16 12:00 10/31/16 11:59 Vancomycin HCl/ Dextrose (Vancomycin/D5W) 275 ml @ 183.333 mls/hr Q12HR@0200,1200 IVPB 10/02/16 02:00 10/07/16 01:59 10/02/16 02:38 JO-ANN SAUCEDO Oct 02, 2016 09:13
--- NOTE | 2016-10-02 09:27 | General Progress Note ---
Assessment/Plan Problem List: (1) Encephalopathy acute ICD Codes: G93.40 - Encephalopathy, unspecified SNOMED: 4529609 (2) Pneumonia ICD Codes: J18.9 - Pneumonia, unspecified organism SNOMED: 270252624 Qualifiers: (3) G tube feedings ICD Codes: Z93.1 - G tube feedings SNOMED: 772817192 Status: stable, progressing Assessment/Plan resume feeds monitor congestion suctioning/resp rx follow up kub IVF abx follow up cultures Subjective ROS Limited/Unobtainable: No Constitutional: Reports: malaise, weakness HEENT: Reports: no symptoms Cardiovascular: Reports: no symptoms Respiratory: Reports: cough, sputum Gastrointestinal/Abdominal: Reports: difficulty swallowing Genitourinary: Reports: no symptoms Neurologic/Psychiatric: Reports: pre-existing deficit Endocrine: Reports: no symptoms Hematologic/Lymphatic: Reports: anemia Allergies: Coded Allergies: No Known Allergies (Unverified , 02/11/13) All Systems: reviewed and negative except above Subjective less congested. xray with bilateral infiltrates. on ivf. no fevers \ Objective Last 24 Hour Vital Signs Date Time Temp Pulse Resp B/P Pulse Ox O2 Delivery O2 Flow Rate FiO2 10/02/16 08:15 97.2 91 20 154/91 98 T-piece 10/02/16 04:00 6.0 30 10/02/16 04:00 97.2 71 20 138/88 97 T-piece 10/02/16 04:00 67 10/02/16 01:29 97 T-piece 10.0 35 10/02/16 01:29 T-piece 10.0 35 10/02/16 00:00 76 10/02/16 00:00 97.3 70 20 128/74 97 T-piece 10/02/16 00:00 6.0 30 10/01/16 22:52 82 126/80 10/01/16 20:00 68 10/01/16 20:00 97.8 82 20 126/80 95 10/01/16 20:00 6.0 30 10/01/16 19:41 96 T-piece 10.0 35 10/01/16 19:41 T-piece 10.0 35 10/01/16 19:40 T-piece 10.0 35 10/01/16 19:40 T-piece 10.0 35 10/01/16 16:00 80 10/01/16 16:00 6.0 30 10/01/16 16:00 97.2 82 20 143/91 97 10/01/16 13:30 97 T-piece 6.0 28 10/01/16 13:30 T-piece 6.0 28 10/01/16 12:00 82 10/01/16 12:00 6.0 30 10/01/16 11:50 97.2 81 20 130/75 95 T-piece Intake and Output 10/01/16 10/02/16 19:00 07:00 Intake Total 1282.5 ml 1613 ml Output Total 350 ml 750 ml Balance 932.5 ml 863 ml Free Water 150 ml IV Total 1022.5 ml 1613 ml Tube Feeding 110 ml Output Urine Total 350 ml 750 ml # Voids 1 # Bowel Movements 1 Height (Feet): 5 Height (Inches): 9.00 Weight (Pounds): 202 Objective General Appearance: WD/WN, lethargic, confused Neck: supple Cardiovascular: regular rhythm Respiratory/Chest: crackles/rales, rhonchi - bilaterally Abdomen: normal bowel sounds, non tender, soft, no organomegaly Edema: no edema noted Arm (L), no edema noted Arm (R), no edema noted Leg (L), no edema noted Leg (R), no edema noted Pedal (L), no edema noted Pedal (R), no edema noted Generalized Neurologic: unresponsive, aphasia ANNE LEE Oct 02, 2016 09:27
[2016-10-02] MEDS: Heparin 5000 units/ml inj SUBQ SCH ×2 (10:30→21:18)
[2016-10-02] MEDS: Levemir Flexpen SUBQ SCH ×2 (10:30→21:16)
[2016-10-02] MEDS: Metoprolol 25mg tab GT SCH ×2 (10:32→21:17)
[2016-10-02] MEDS: Tamsulosin 0.4mg cap GT SCH (10:32)
[2016-10-02] MEDS: Lactobacillus-GG tablet ORAL SCH ×2 (10:32→17:00)
[2016-10-02] MEDS: Ascorbic Acid 500mg tab GT SCH (10:32)
[2016-10-02] MEDS: Tums 500mg GT SCH (10:32)
[2016-10-02] MEDS: Cefepime HCl 1 GM in NS 55 ML IVPB SCH ×2 (10:33→21:17)
[2016-10-02] MEDS: Sucralfate 1gm tab GT SCH ×4 (10:33→21:17)
[2016-10-02] MEDS: Fluconazole 100mg tab ORAL SCH (10:37)
[2016-10-02] MEDS: D5NS 1,000 ML IV SCH (10:38)
[2016-10-02 11:45] VITALS: BP 145/84
[2016-10-02 16:00] VITALS: BP 148/77
[2016-10-02 20:00] VITALS: BP 146/84
[2016-10-03] VITALS: BP 135/82
[2016-10-03] MEDS: D5NS 1,000 ML IV SCH ×3 (01:33→18:51)
[2016-10-03] MEDS: Vancomycin 1250mg/D5W 275ml IVPB SCH ×4 (01:33→12:33)
[2016-10-03 04:00] VITALS: BP 146/82
--- NOTE | 2016-10-03 07:50 | General Progress Note ---
Assessment/Plan Problem List: (1) Encephalopathy acute ICD Codes: G93.40 - Encephalopathy, unspecified SNOMED: 8496495 (2) Pneumonia ICD Codes: J18.9 - Pneumonia, unspecified organism SNOMED: 847200879 Qualifiers: (3) G tube feedings ICD Codes: Z93.1 - G tube feedings SNOMED: 580485505 Status: stable, progressing Assessment/Plan resume feeds dc ivf monitor congestion suctioning/resp rx follow up kub abx follow up sputum cultures Subjective ROS Limited/Unobtainable: No Constitutional: Reports: malaise, weakness HEENT: Reports: no symptoms Cardiovascular: Reports: no symptoms Respiratory: Reports: sputum Gastrointestinal/Abdominal: Reports: difficulty swallowing Genitourinary: Reports: no symptoms Neurologic/Psychiatric: Reports: pre-existing deficit Endocrine: Reports: no symptoms Hematologic/Lymphatic: Reports: anemia Allergies: Coded Allergies: No Known Allergies (Unverified , 02/11/13) All Systems: reviewed and negative except above Subjective less congested. tolerating feeds. xray with bilateral infiltrates. on ivf. no fevers. wbc improving. sputum with gnr \ Objective Last 24 Hour Vital Signs Date Time Temp Pulse Resp B/P Pulse Ox O2 Delivery O2 Flow Rate FiO2 10/03/16 04:00 76 10/03/16 04:00 97.9 78 18 146/82 96 Room Air 10/03/16 04:00 6.0 30 10/03/16 01:30 95 T-piece 6.0 40 10/03/16 01:30 T-piece 6.0 35 10/03/16 00:00 97.7 76 20 135/82 94 T-piece 10/03/16 00:00 6.0 30 10/03/16 00:00 77 10/02/16 21:17 81 146/84 10/02/16 20:00 103 10/02/16 20:00 6.0 30 10/02/16 20:00 97.3 81 20 146/84 97 T-piece 10/02/16 19:30 T-piece 6.0 35 10/02/16 19:30 93 T-piece 6.0 40 10/02/16 16:00 97.7 74 20 148/77 97 T-piece 10/02/16 16:00 77 10/02/16 16:00 6.0 30 10/02/16 12:00 68 10/02/16 12:00 6.0 30 10/02/16 11:45 97.9 70 20 145/84 97 T-piece 10/02/16 10:32 91 154/91 10/02/16 08:15 97.2 91 20 154/91 98 T-piece 10/02/16 08:00 6.0 30 10/02/16 08:00 70 Intake and Output 10/02/16 10/03/16 19:00 07:00 Intake Total 270 ml 1076.666 ml Output Total 600 ml 100 ml Balance -330 ml 976.666 ml IV Total 75 ml 1076.666 ml Tube Feeding 195 ml Output Urine Total 600 ml 100 ml # Bowel Movements 1 Laboratory Tests 10/03/16 00:55: Vancomycin Level Trough 12.9H Height (Feet): 5 Height (Inches): 9.00 Weight (Pounds): 202 Objective General Appearance: WD/WN, lethargic, confused Neck: supple Cardiovascular: regular rhythm Respiratory/Chest: crackles/rales, rhonchi - bilaterally Abdomen: normal bowel sounds, non tender, soft, no organomegaly Edema: no edema noted Arm (L), no edema noted Arm (R), no edema noted Leg (L), no edema noted Leg (R), no edema noted Pedal (L), no edema noted Pedal (R), no edema noted Generalized Neurologic: unresponsive, aphasia ANNE LEE Oct 03, 2016 07:50
[2016-10-03 08:00] VITALS: BP_SYST 127; BP_SYST 146; BP_DIAS 75; BP_DIAS 85
--- NOTE | 2016-10-03 08:05 | Diagnostic Imaging Report ---
Indication: Vomiting Technique: Supine views of the abdomen Comparison: 02/14/13 Findings: Gastrostomy projects over the upper abdomen. Bowel gas pattern is nonobstructive and nonspecific. Gas is noted within small bowel and colon. Degenerative changes of the spine are seen. Impression: Nonobstructive and nonspecific bowel gas pattern. Gastrostomy.
--- NOTE | 2016-10-03 08:41 | Pulmonology Progress Note ---
Assessment/Plan Assessment/Plan IMPRESSION: 1. Respiratory failure. 2. Congestion. 3. Pneumonia, likely senior living-acquired. 4. Possible urinary tract infection. 5. Chronic encephalopathy. 6. History of stroke. 7. Urinary retention. 8. Benign prostatic hyperplasia. PLAN care noted exam without substantial change suction and aspiration precautions respiratory care monitor for change close follow up monitor as is ID follow up aspiration precautions labs improved dc once stable cultures noted repeat chest XR noted; only with atelectasis impression, plan, and exam edited and reviewed in detail care discussed with RN Subjective ROS Limited/Unobtainable: Yes Allergies: Coded Allergies: No Known Allergies (Unverified , 02/11/13) Subjective withdrawn poor LOC Objective Last 24 Hour Vital Signs Date Time Temp Pulse Resp B/P Pulse Ox O2 Delivery O2 Flow Rate FiO2 10/03/16 04:00 76 10/03/16 04:00 97.9 78 18 146/82 96 Room Air 10/03/16 04:00 6.0 30 10/03/16 01:30 95 T-piece 6.0 40 10/03/16 01:30 T-piece 6.0 35 10/03/16 00:00 97.7 76 20 135/82 94 T-piece 10/03/16 00:00 6.0 30 10/03/16 00:00 77 10/02/16 21:17 81 146/84 10/02/16 20:00 103 10/02/16 20:00 6.0 30 10/02/16 20:00 97.3 81 20 146/84 97 T-piece 10/02/16 19:30 T-piece 6.0 35 10/02/16 19:30 93 T-piece 6.0 40 10/02/16 16:00 97.7 74 20 148/77 97 T-piece 10/02/16 16:00 77 10/02/16 16:00 6.0 30 10/02/16 12:00 68 10/02/16 12:00 6.0 30 10/02/16 11:45 97.9 70 20 145/84 97 T-piece 10/02/16 10:32 91 154/91 Intake and Output 10/02/16 10/03/16 19:00 07:00 Intake Total 270 ml 1076.666 ml Output Total 600 ml 100 ml Balance -330 ml 976.666 ml IV Total 75 ml 1076.666 ml Tube Feeding 195 ml Output Urine Total 600 ml 100 ml # Bowel Movements 1 Objective GENERAL: The patient is a well-developed male, comfortable. NAD HEENT: Fairly negative. Pupils are sluggish, but reactive. NECK: Supple. Tracheostomy midline. LUNGS: Coarse breath sounds. Some rhonchi diffusely. no wheeze CARDIAC: S1 and S2. Regular rate and rhythm. no murmurs or rubs. ABDOMEN: Soft and nontender. G-tube in place no HSM EXTREMITIES: No cyanosis or clubbing. There is no edema. NEUROLOGIC: Withdrawn. reviewed and edited comfortable Microbiology Date/Time Source Procedure Growth Status 10/01/16 09:20 Sputum Gram Stain - Final Resulted 10/01/16 09:20 Sputum Culture - Preliminary Gram Negative Bacillus 1 Gram Negative Bacillus 2 Resulted Laboratory Tests 10/03/16 00:55: Vancomycin Level Trough 12.9H Current Medications Medications (Trade) Dose Ordered Sig/Magda Route PRN Reason Start Time Stop Time Status Last Admin Dose Admin Acetaminophen (Tylenol) 650 mg Q4H PRN GT Prn Headache/Temp > 101 09/29/16 19:15 10/29/16 19:14 Albuterol Sulfate (Proventil) 2.5 mg Q6H PRN HHN Shortness of Breath 09/29/16 19:15 10/04/16 19:14 Ascorbic Acid (Vitamin C) 500 mg DAILY GT 09/30/16 09:00 10/30/16 08:59 10/02/16 10:32 Bisacodyl (Dulcolax) 10 mg DAILYPRN PRN RECTAL Constipation 09/30/16 09:00 10/30/16 08:59 Calcium Carbonate (Tums) 500 mg DAILY GT 09/30/16 09:00 10/30/16 08:59 10/02/16 10:32 Cefepime HCl/ Sodium Chloride (Maxipime/Sodium Chloride) 55 ml @ 110 mls/hr EVERY 12 HOURS IVPB 09/30/16 09:00 10/07/16 08:59 10/02/16 21:17 Clonidine HCl (Catapres) 0.1 mg Q6H PRN GT SBP>160 09/29/16 19:15 10/29/16 19:14 Dextrose/Sodium Chloride (D5ns) 1,000 ml @ 75 mls/hr [id number] IV 10/01/16 09:00 10/31/16 08:59 10/03/16 01:33 Finasteride (Proscar) 5 mg DAILY GT 09/30/16 09:00 10/30/16 08:59 10/02/16 10:32 Fluconazole 100 mg 100 mg DAILY ORAL 10/01/16 14:00 10/08/16 13:59 10/02/16 10:37 Heparin Sodium (Porcine) (Heparin 5000 units/ml) 5,000 units EVERY 12 HOURS SUBQ 09/29/16 21:00 10/29/16 20:59 10/02/16 21:18 Insulin Detemir 40 units 40 units Q12HR SUBQ 09/30/16 09:00 10/30/16 08:59 10/02/16 21:16 Lactobacillus Acidophilus (Culturelle) 1 tab TWICE A DAY ORAL 09/30/16 09:00 10/30/16 08:59 10/02/16 17:00 Magnesium Hydroxide (Mom) 30 ml DAILYPRN PRN GT Constipation 09/29/16 19:15 10/29/16 19:14 Metoprolol Tartrate (Lopressor) 25 mg EVERY 12 HOURS GT 09/29/16 21:00 10/29/16 20:59 10/02/16 21:17 Multivitamins (Multivitamins) 1 tab DAILY ORAL 09/30/16 09:00 10/30/16 08:59 10/02/16 10:32 Sitagliptin Phosphate (Januvia) 100 mg ACBREAKFAST GT 09/30/16 06:30 10/30/16 06:29 10/03/16 05:47 Sucralfate (Carafate) 1 gm FOUR TIMES A DAY GT 09/29/16 22:00 10/29/16 21:59 10/02/16 21:17 Tamsulosin HCl 0.4 mg 0.4 mg DAILY GT 09/30/16 09:00 10/30/16 08:59 10/02/16 10:32 Vancomycin HCl (Vanco rx to dose) 1 ea DAILY PRN MISC . 10/01/16 12:00 10/31/16 11:59 Vancomycin HCl/ Dextrose (Vancomycin/D5W) 275 ml @ 183.333 mls/hr Q12HR@0200,1200 IVPB 10/02/16 02:00 10/07/16 01:59 10/03/16 01:33 JO-ANN SAUCEDO Oct 03, 2016 08:41
[2016-10-03] MEDS: Sucralfate 1gm tab GT SCH ×4 (09:20→21:32)
[2016-10-03] MEDS: Lactobacillus-GG tablet ORAL SCH ×2 (09:23→17:55)
[2016-10-03] MEDS: Ascorbic Acid 500mg tab GT SCH (09:23)
[2016-10-03] MEDS: Tamsulosin 0.4mg cap GT SCH (09:23)
[2016-10-03] MEDS: Fluconazole 100mg tab ORAL SCH (09:23)
[2016-10-03] MEDS: Tums 500mg GT SCH (09:23)
[2016-10-03] MEDS: Metoprolol 25mg tab GT SCH ×2 (09:24→21:31)
[2016-10-03] MEDS: Heparin 5000 units/ml inj SUBQ SCH ×2 (09:25→21:33)
[2016-10-03] MEDS: Levemir Flexpen SUBQ SCH ×2 (09:25→21:33)
[2016-10-03] MEDS: Cefepime HCl 1 GM in NS 55 ML IVPB SCH ×2 (10:11→21:31)
--- NOTE | 2016-10-03 10:26 | Diagnostic Imaging Report ---
Indications: Shortness of breath Technique: Portable AP chest Findings: Comparison: 10/01/2016 Elevation apparent right hemidiaphragm, right midlung linear subsegmental atelectasis versus scarring, increased interstitial markings in both lungs, cardiomegaly persists, unchanged. No new abnormality demonstrated. IMPRESSION: No change from 2 days prior
--- NOTE | 2016-10-03 11:31 | Infectious Diseases Prog Note ---
"Assessment/Plan Assessment/Plan antibiotics : vancomycin iv, cefepime, fluconazole A 1. gram negative pneumonia 2. MRSA | fungal UTI 3. respiratory failure 4. leucocytosis improving 5. DM 6. HTN P 1. continue iv vancomycin, fluconazole 4 more days 2. continue cefepime 3. will follow up cultures Subjective ROS Limited/Unobtainable: Yes Allergies: Coded Allergies: No Known Allergies (Unverified , 02/11/13) Objective Vital Signs Last 24 Hour Vital Signs Date Time Temp Pulse Resp B/P Pulse Ox O2 Delivery O2 Flow Rate FiO2 10/03/16 09:24 83 146/85 10/03/16 08:00 97.2 79 17 127/75 96 Room Air 10/03/16 08:00 6.0 30 10/03/16 08:00 73 10/03/16 07:50 97 T-piece 6.0 40 10/03/16 07:50 T-piece 6.0 40 10/03/16 04:00 76 10/03/16 04:00 97.9 78 18 146/82 96 Room Air 10/03/16 04:00 6.0 30 10/03/16 01:30 95 T-piece 6.0 40 10/03/16 01:30 T-piece 6.0 35 10/03/16 00:00 97.7 76 20 135/82 94 T-piece 10/03/16 00:00 6.0 30 10/03/16 00:00 77 10/02/16 21:17 81 146/84 10/02/16 20:00 103 10/02/16 20:00 6.0 30 10/02/16 20:00 97.3 81 20 146/84 97 T-piece 10/02/16 19:30 T-piece 6.0 35 10/02/16 19:30 93 T-piece 6.0 40 10/02/16 16:00 97.7 74 20 148/77 97 T-piece 10/02/16 16:00 77 10/02/16 16:00 6.0 30 10/02/16 12:00 68 10/02/16 12:00 6.0 30 10/02/16 11:45 97.9 70 20 145/84 97 T-piece Height (Feet): 5 Height (Inches): 9.00 Weight (Pounds): 202 HEENT: status post trach Respiratory/Chest: lungs clear Cardiovascular: normal rate, regular rhythm, no gallop/murmur Abdomen: soft, non tender, other - GT Extremities: no edema Microbiology Date/Time Source Procedure Growth Status 10/01/16 09:20 Sputum Gram Stain - Final Resulted 10/01/16 09:20 Sputum Culture - Preliminary Gram Negative Bacillus 1 Gram Negative Bacillus 2 Resulted Laboratory Tests Test 10/03/16 00:55 Vancomycin Level Trough 12.9 ug/mL (5.0-12.0) H JAMESON MANNING Oct 03, 2016 11:31"
[2016-10-03 12:00] VITALS: BP 151/90
[2016-10-03 16:00] VITALS: BP 145/108
--- NOTE | 2016-10-03 17:04 | Cardiology Report ---
APPROVED REPORT EKG Measurement Heart [id number] CO [id number] [id number] Sinus tachycardia Otherwise normal ECG
[2016-10-03 20:00] VITALS: BP 141/88
[2016-10-04] VITALS (7 sets, daily range): BP systolic 125–153; BP diastolic 78–90
[2016-10-04] MEDS: Vancomycin 1250mg/D5W 275ml IVPB SCH ×2 (01:51)
--- NOTE | 2016-10-04 01:58 | Progress Note ---
DATE: 09/30/2016 CARDIOLOGY PROGRESS NOTE SUBJECTIVE: The patient was seen and evaluated. Case was discussed with Dr. Perkins. The patient remains congested and withdrawn. OBJECTIVE: VITAL SIGNS: Blood pressure 134/83, heart rate 94, respiratory rate 20, and afebrile. T-max 99.1. CHEST: Remains on T-tube with coarse breath sounds. Rhonchi. HEART: Regular rhythm and rate. Normal S1 and S2 with a fourth heart sound. ABDOMEN: Soft. G-tube intact. EXTREMITIES: No edema. NEUROLOGIC: Paraplegia noted. LABORATORY DATA: White count 8.7 and hemoglobin 12.9. ABG - 7.44, 42, and 59. Sodium 142, potassium 4.1, bicarbonate 29, BUN 15, creatinine 0.7, and glucose 178. Albumin 2.8. IMPRESSION: 1. Healthcare-acquired pneumonia. 2. Respiratory failure with tracheostomy. 3. Diabetes mellitus with hyperglycemia. 4. Rhabdomyolysis. 5. Moderate protein-calorie malnutrition. 6. Dysphagia with gastrostomy tube. 7. Secondary sinus tachycardia, resolved. 8. Chronic diastolic congestive heart failure. 9. Hypoxia due to pneumonia. 10. Chronic encephalopathy. PLAN: 1. Continue cautious hydration. 2. Nutritional support and protein supplement by feeding tube. 3. Respiratory hygiene. 4. Oxygen support. 5. Insulin coverage and titration by sliding scale. 6. No diuretics. 7. Antimicrobials. 8. Follow up culture results. 9. P.r.n. clonidine only for blood pressure spikes. Giovanni Gross JOB#: [id number] CC:
--- NOTE | 2016-10-04 02:07 | Progress Note ---
DATE: 10/03/2016 CARDIOLOGY PROGRESS NOTE SUBJECTIVE: Monitored rhythm sinus. Occasional sinus tachycardia. Tracheostomy with G-tube. Secretions continues to be remain moderate with frequent suctioning required. OBJECTIVE: VITAL SIGNS: Blood pressure 151/90, pulse 74, respirations 20, and afebrile. LUNGS: Bilateral breath sounds. Scattered rhonchi. HEART: Regular rhythm and rate. Normal S1 and S2. ABDOMEN: Soft. EXTREMITIES: Trace edema. LABORATORY AND DIAGNOSTIC DATA: No new laboratories. Chest x-ray today was notable for persistent right mid lung atelectasis and bilateral interstitial infiltrates with no interval change. IMPRESSION: 1. Pneumonia. 2. Urinary tract infection. 3. Fungal cystitis. 4. Sepsis, resolved. 5. Sinus tachycardia. 6. Moderate protein-calorie malnutrition. 7. Dysphagia with gastrostomy tube. 8. Cerebrovascular accident with encephalopathy. 9. Insulin-requiring diabetes. 10. Rehydrated. 11. Chronic diastolic congestive heart failure. 12. Hypertensive heart disease with increasing blood pressure trend. PLAN: 1. Discontinue IV fluids. 2. Recheck laboratory studies. 3. Continue antibiotics, respiratory hygiene and follow up sputum culture results. 4. May consider additional antihypertensive therapy in addition to current dose of beta-joe, if blood pressure parameters continues to increase. Brady Burks M.D. DR: CAL JOB#: [id number] CC:
--- NOTE | 2016-10-04 02:07 | Consultation ---
DATE OF CONSULTATION: 09/29/2016 CARDIOLOGY CONSULTATION The patient seen in the emergency room. REQUESTING PHYSICIAN: Jeremiah Perkins M.D. REASON: Tachycardia. HISTORY OF PRESENT ILLNESS: This is a 66-year-old male, who resides at a intermediate facility. He is disabled due to prior strokes. He has had tracheostomy and gastrostomy tube. He is on T-tube at this time. He was brought to the emergency room with fevers and congestion as well as with rapid heart rate. PAST MEDICAL HISTORY: Type 2 diabetes mellitus, chronic obstructive pulmonary disease, seizure disorder, respiratory failure with tracheostomy, dysphagia with gastrostomy tube, paraplegia, and prostatic hypertrophy. SOCIAL HISTORY: No record of smoking, alcohol, or substance abuse. MEDICATIONS: Prior to admission, reviewed and reconciled. ALLERGIES: None known. REVIEW OF SYSTEMS: Not obtainable from the patient. Pertinent data from records outlined above. PHYSICAL EXAMINATION: VITAL SIGNS: Temperature 100.9 degrees, blood pressure 119/80, pulse 123, and respiratory rate 28. HEENT: Conjunctivae are pink. Sclerae are anicteric. Oropharynx clear. Mucous membranes dry. NECK: Supple. Trach site with thin secretions. LUNGS: With coarse breath sounds and rhonchi. CARDIAC: Regular rhythm. Rapid rate. Normal S1 and S2 with a fourth heart sound. ABDOMEN: Soft and nontender. G-tube intact. EXTREMITIES: With muscle atrophy, contractures and no edema. LABORATORY DATA: White count 16.4 and hemoglobin 14.9. Sodium 136, potassium 4.0, chloride 93, bicarbonate 29, BUN 21, creatinine 0.9, glucose 250, CK 514. Troponin negative. Natriuretic peptide 492. Albumin 3.4. Chest x-ray revealed left upper and lower infiltrates and right perihilar atelectasis. His electrocardiogram sinus tachycardia, otherwise no acute pathology. IMPRESSION: 1. Sepsis. 2. Pneumonia secondary sinus tachycardia. 3. Hypovolemia. 4. Dehydration. 5. Rhabdomyolysis. 6. Insulin-requiring diabetes mellitus with hyperglycemia. 7. Chronic diastolic congestive heart failure with elevated pro-natriuretic peptide assay. 8. Mild protein-calorie malnutrition. 9. Tracheostomy and respiratory failure. 10. Hypochloremia. 11. Dysphagia with gastrostomy tube. 12. Chronic encephalopathy with seizure disorder. PLAN: 1. Hydration with saline. 2. Panculture. 3. Broad-spectrum antibiotics. 4. No diuresis at this time. 5. DVT prophylaxis. 6. Respiratory hygiene with bronchodilators. 7. Cardiac monitoring. 8. Antipyretics. Brady Burks M.D. DR: Saad JOB#: [id number] CC:
--- NOTE | 2016-10-04 02:28 | Progress Note ---
Cardiology Progress Note October 02, 2016 SUBJECTIVE: Condition largely unchanged. However, congestion improved. Continues to require suctioning from G-tube. PHYSICAL EXAMINATION: VITALS: Afebrile. Blood pressure 154/91, pulse 91, and respiration 20. RESPIRATION: Coarse breath sounds and rhonchi. CARDIAC: Regular rhythm and rapid rate. Normal S1 and S2. ABDOMEN: Soft. G-tube intact. EXTREMITIES: No edema. Contractures and muscle atrophy. Chest x-ray yesterday revealed no significant change. IMPRESSION: 1. Bilateral pneumonia, health-care acquired. 2. Tracheostomy and respiratory failure. 3. Chronic diastolic congestive heart failure. 4. Hypertensive heart disease. 5. Insulin-requiring diabetes mellitus. 6. Hypovolemia and dehydration corrected. 7. Moderate protein calorie malnutrition. 8. Dysphagia with G-tube. 9. Rhabdomyolysis, resolved. 10. Urinary tract infection. 11. Fungal cystitis. PLAN: 1. Antibiotics. 2. Bronchodilators. 3. Respiratory hygiene. 4. Sputum cultures, pending. 5. DVT prophylaxis. 6. Insulin titration. 7. Cautious hydration. Brady Burks M.D. DR: VARUN JOB#: [id number] CC: MARIA DEL CARMEN
--- NOTE | 2016-10-04 02:57 | Progress Note ---
DATE: 10/01/2016 CARDIOLOGY PROGRESS NOTE LATE ENTRY SUBJECTIVE: Case reviewed with Dr. Perkins. The patient is more alert and less congested. He continues to require suctioning. OBJECTIVE: VITAL SIGNS: Blood pressure 133/81, pulse 82, and respiratory rate 20. No fevers. LUNGS: Bilateral breath sounds. Scattered rhonchi, left greater than right. HEART: Regular rhythm and rate. Normal S1 and S2 with a fourth heart sound. No murmur. ABDOMEN: Soft. G-tube intact. EXTREMITIES: With no edema. Muscle atrophy and contractures persists. LABORATORY AND DIAGNOSTIC DATA: Cultures of the urine were positive for Monik and MRSA. CK is down to 199. White count 9.7 and hemoglobin 13.1. IMPRESSION: 1. Healthcare-acquired pneumonia. 2. Sepsis. 3. Sinus tachycardia, recovered. 4. Chronic diastolic congestive heart failure, resolved. 5. Rhabdomyolysis. 6. Hypovolemia and dehydration, corrected. 7. Fungal cystitis. 8. Urinary tract infection. PLAN: Continue antimicrobials titration, p.r.n. antihypertensives, cautious hydration, DVT prophylaxis, bronchodilators, respiratory hygiene, and nutritional support by feeding tube with protein supplements. Brady Burks M.D. DR: Enrique JOB#: [id number] CC:
--- NOTE | 2016-10-04 05:51 | General Progress Note ---
Assessment/Plan Problem List: (1) Encephalopathy acute ICD Codes: G93.40 - Encephalopathy, unspecified SNOMED: 8619448 (2) Pneumonia ICD Codes: J18.9 - Pneumonia, unspecified organism SNOMED: 344036857 Qualifiers: (3) G tube feedings ICD Codes: Z93.1 - G tube feedings SNOMED: 903620872 Status: stable Assessment/Plan gi eval ?j tube dc ivf monitor congestion- seems worse now suctioning/resp rx follow up kub abx follow up sputum cultures Subjective ROS Limited/Unobtainable: No Constitutional: Reports: malaise, weakness HEENT: Reports: no symptoms Cardiovascular: Reports: no symptoms Respiratory: Reports: cough Gastrointestinal/Abdominal: Reports: no symptoms Genitourinary: Reports: no symptoms Neurologic/Psychiatric: Reports: pre-existing deficit, seizure Endocrine: Reports: no symptoms Hematologic/Lymphatic: Reports: no symptoms Allergies: Coded Allergies: No Known Allergies (Unverified , 02/11/13) All Systems: reviewed and negative except above Subjective ? congested. tolerating feeds. xray with bilateral infiltrates. on ivf. no fevers. labs pending \ Objective Last 24 Hour Vital Signs Date Time Temp Pulse Resp B/P Pulse Ox O2 Delivery O2 Flow Rate FiO2 10/04/16 04:17 97.7 67 20 138/78 96 Trach Collar 10/04/16 04:06 66 20 98 T-piece 10.0 35 10/04/16 04:00 6.0 30 10/04/16 04:00 63 10/04/16 03:53 64 24 96 T-piece 10.0 35 10/04/16 03:53 35 10/04/16 01:01 T-piece 8.0 35 10/04/16 01:00 97 T-piece 8.0 35 10/04/16 00:03 98.2 74 18 125/90 97 Trach Collar 10/04/16 00:00 6.0 30 10/04/16 00:00 73 10/03/16 21:31 72 141/88 10/03/16 20:00 97.0 72 18 141/88 99 Trach Collar 10/03/16 20:00 78 10/03/16 20:00 6.0 30 10/03/16 19:40 T-piece 6.0 40 10/03/16 19:40 96 T-piece 6.0 40 10/03/16 19:00 76 22 T-piece 10.0 35 10/03/16 18:07 78 10/03/16 16:00 98.2 87 22 145/108 100 Room Air 10/03/16 16:00 6.0 30 10/03/16 12:00 6.0 30 10/03/16 12:00 97.9 74 20 151/90 100 Room Air 10/03/16 12:00 78 10/03/16 09:24 83 146/85 10/03/16 08:00 97.2 83 22 146/85 100 Room Air 10/03/16 08:00 6.0 30 10/03/16 08:00 73 10/03/16 07:50 97 T-piece 6.0 40 10/03/16 07:50 T-piece 6.0 40 Intake and Output 10/03/16 10/04/16 19:00 07:00 Intake Total 1460.00 ml 1001.666 ml Output Total 700 ml Balance 1460.00 ml 301.666 ml Free Water 100 ml IV Total 1080.00 ml 1001.666 ml Tube Feeding 280 ml Output Urine Total 700 ml Height (Feet): 5 Height (Inches): 9.00 Weight (Pounds): 202 Objective General Appearance: WD/WN, lethargic, confused Neck: supple Cardiovascular: regular rhythm Respiratory/Chest: crackles/rales, rhonchi - bilaterally Abdomen: normal bowel sounds, non tender, soft, no organomegaly Edema: no edema noted Arm (L), no edema noted Arm (R), no edema noted Leg (L), no edema noted Leg (R), no edema noted Pedal (L), no edema noted Pedal (R), no edema noted Generalized Neurologic: unresponsive, aphasia ANNE LEE Oct 04, 2016 05:51
--- NOTE | 2016-10-04 07:17 | Pulmonology Progress Note ---
Assessment/Plan Assessment/Plan IMPRESSION: 1. Respiratory failure. 2. Congestion. 3. Pneumonia, likely half-way-acquired. 4. Possible urinary tract infection. 5. Chronic encephalopathy. 6. History of stroke. 7. Urinary retention. 8. Benign prostatic hyperplasia. PLAN care noted exam with increase in congestion suction and aspiration precautions respiratory care monitor for change close follow up; may need MARY monitor as is ID follow up aspiration precautions labs improved dc once stable cultures noted repeat chest XR noted; noted impression, plan, and exam edited and reviewed in detail care discussed with RN Subjective ROS Limited/Unobtainable: Yes Allergies: Coded Allergies: No Known Allergies (Unverified , 02/11/13) Subjective withdrawn poor LOC increase in congestion cxr negative Objective Last 24 Hour Vital Signs Date Time Temp Pulse Resp B/P Pulse Ox O2 Delivery O2 Flow Rate FiO2 10/04/16 04:17 97.7 67 20 138/78 96 Trach Collar 10/04/16 04:06 66 20 98 T-piece 10.0 35 10/04/16 04:00 6.0 30 10/04/16 04:00 63 10/04/16 03:53 64 24 96 T-piece 10.0 35 10/04/16 03:53 35 10/04/16 01:01 T-piece 8.0 35 10/04/16 01:00 97 T-piece 8.0 35 10/04/16 00:03 98.2 74 18 125/90 97 Trach Collar 10/04/16 00:00 6.0 30 10/04/16 00:00 73 10/03/16 21:31 72 141/88 10/03/16 20:00 97.0 72 18 141/88 99 Trach Collar 10/03/16 20:00 78 10/03/16 20:00 6.0 30 10/03/16 19:40 T-piece 6.0 40 10/03/16 19:40 96 T-piece 6.0 40 10/03/16 19:00 76 22 T-piece 10.0 35 10/03/16 18:07 78 10/03/16 16:00 98.2 87 22 145/108 100 Room Air 10/03/16 16:00 6.0 30 10/03/16 12:00 6.0 30 10/03/16 12:00 97.9 74 20 151/90 100 Room Air 10/03/16 12:00 78 10/03/16 09:24 83 146/85 10/03/16 08:00 97.2 83 22 146/85 100 Room Air 10/03/16 08:00 6.0 30 10/03/16 08:00 73 10/03/16 07:50 97 T-piece 6.0 40 10/03/16 07:50 T-piece 6.0 40 Intake and Output 10/03/16 10/04/16 19:00 07:00 Intake Total 1460.00 ml 1001.666 ml Output Total 2200 ml Balance 1460.00 ml -1198.334 ml Free Water 100 ml IV Total 1080.00 ml 1001.666 ml Tube Feeding 280 ml Output Urine Total 2200 ml Objective GENERAL: The patient is a well-developed male, comfortable. NAD HEENT: Fairly negative. Pupils are sluggish, but reactive. NECK: Supple. Tracheostomy midline. LUNGS: Coarse breath sounds. increase in rhonchi diffusely. no wheeze CARDIAC: S1 and S2. Regular rate and rhythm. no murmurs or rubs. ABDOMEN: Soft and nontender. G-tube in place no HSM; no distention EXTREMITIES: No cyanosis or clubbing. There is no edema. NEUROLOGIC: Withdrawn. reviewed and edited comfortable Microbiology Date/Time Source Procedure Growth Status 10/01/16 09:20 Sputum Gram Stain - Final Resulted 10/01/16 09:20 Sputum Culture - Preliminary Gram Negative Bacillus 1 Gram Negative Bacillus 2 Resulted Current Medications Medications (Trade) Dose Ordered Sig/Magda Route PRN Reason Start Time Stop Time Status Last Admin Dose Admin Acetaminophen (Tylenol) 650 mg Q4H PRN GT Prn Headache/Temp > 101 09/29/16 19:15 10/29/16 19:14 Albuterol Sulfate (Proventil) 2.5 mg Q6H PRN HHN Shortness of Breath 09/29/16 19:15 10/04/16 19:14 10/04/16 03:53 Ascorbic Acid (Vitamin C) 500 mg DAILY GT 09/30/16 09:00 10/30/16 08:59 10/03/16 09:23 Bisacodyl (Dulcolax) 10 mg DAILYPRN PRN RECTAL Constipation 09/30/16 09:00 10/30/16 08:59 Calcium Carbonate (Tums) 500 mg DAILY GT 09/30/16 09:00 10/30/16 08:59 10/03/16 09:23 Cefepime HCl/ Sodium Chloride (Maxipime/Sodium Chloride) 55 ml @ 110 mls/hr EVERY 12 HOURS IVPB 09/30/16 09:00 10/07/16 08:59 10/03/16 21:31 Clonidine HCl (Catapres) 0.1 mg Q6H PRN GT SBP>160 09/29/16 19:15 10/29/16 19:14 Finasteride (Proscar) 5 mg DAILY GT 09/30/16 09:00 10/30/16 08:59 10/03/16 09:24 Fluconazole 100 mg 100 mg DAILY ORAL 10/01/16 14:00 10/08/16 13:59 10/03/16 09:23 Heparin Sodium (Porcine) (Heparin 5000 units/ml) 5,000 units EVERY 12 HOURS SUBQ 09/29/16 21:00 10/29/16 20:59 10/03/16 21:33 Insulin Detemir (Levemir) 40 units Q12HR SUBQ 09/30/16 09:00 10/30/16 08:59 10/03/16 21:33 Lactobacillus Acidophilus (Culturelle) 1 tab TWICE A DAY ORAL 09/30/16 09:00 10/30/16 08:59 10/03/16 17:55 Magnesium Hydroxide (Mom) 30 ml DAILYPRN PRN GT Constipation 09/29/16 19:15 10/29/16 19:14 Metoprolol Tartrate (Lopressor) 25 mg EVERY 12 HOURS GT 09/29/16 21:00 10/29/16 20:59 10/03/16 21:31 Multivitamins (Multivitamins) 1 tab DAILY ORAL 09/30/16 09:00 10/30/16 08:59 10/03/16 09:23 Sitagliptin Phosphate (Januvia) 100 mg ACBREAKFAST GT 09/30/16 06:30 10/30/16 06:29 10/04/16 06:02 Sucralfate (Carafate) 1 gm FOUR TIMES A DAY GT 09/29/16 22:00 10/29/16 21:59 10/03/16 21:32 Tamsulosin HCl 0.4 mg 0.4 mg DAILY GT 09/30/16 09:00 10/30/16 08:59 10/03/16 09:23 Vancomycin HCl (Vanco rx to dose) 1 ea DAILY PRN MISC . 10/01/16 12:00 10/31/16 11:59 Vancomycin HCl/ Dextrose (Vancomycin/D5W) 275 ml @ 183.333 mls/hr Q12HR@0200,1200 IVPB 10/02/16 02:00 10/07/16 01:59 10/04/16 01:51 JO-ANN SAUCEDO Oct 04, 2016 07:17
[2016-10-04 07:56] LABS: ALANINE AMINOTRANSFERASE 63 U/L (3-41); ALBUMIN/GLOBULIN RATIO 0.7 (1.0-2.7); ANION GAP 11 (5-15); ASPARTATE AMINO TRANSFERASE 40 U/L (5-40); CALCIUM 8.2 mg/dL (8.6-10.2); CARBON DIOXIDE 27 mEQ/L (20-30); CHLORIDE 103 mEQ/L (98-107); CREATININE 0.6 mg/dL (0.7-1.2); GLOMERULAR FILTRATION RATE > 60 mL/min (>60); HEMOLYSIS 4; MAGNESIUM 1.9 mg/dL (1.7-2.5); POTASSIUM 3.7 mEQ/L (3.4-4.9); SODIUM 141 mEQ/L (135-145); TOTAL PROTEIN 6.1 g/dL (6.6-8.7)
[2016-10-04 08:03] LABS: BASOPHILS % (AUTO) 0.7 % (0.0-2.0); LYMPHOCYTES % (AUTO) 24.4 % (20.0-45.0); MEAN CORPUSCULAR HEMOGLOBIN 30.7 PG (27.0-31.0); MEAN CORPUSCULAR HGB CONC 33.3 G/DL (32.0-36.0); MEAN CORPUSCULAR VOLUME 92 FL (80-99); MEAN PLATELET VOLUME 10.7 FL (6.5-10.1); PLATELET COUNT 302 K/UL (150-450); RED BLOOD COUNT 4.21 M/UL (4.70-6.10); RED CELL DISTRIBUTION WIDTH 13.3 % (11.6-14.8); WHITE BLOOD COUNT 12.6 K/UL (4.8-10.8)
[2016-10-04] MEDS: Fluconazole 100mg tab ORAL SCH (08:33)
[2016-10-04] MEDS: Tums 500mg GT SCH (08:33)
[2016-10-04] MEDS: Ascorbic Acid 500mg tab GT SCH (08:33)
[2016-10-04] MEDS: Sucralfate 1gm tab GT SCH ×4 (08:33→21:25)
[2016-10-04] MEDS: Metoprolol 25mg tab GT SCH ×2 (08:34→21:17)
[2016-10-04] MEDS: Tamsulosin 0.4mg cap GT SCH (08:34)
[2016-10-04] MEDS: Lactobacillus-GG tablet ORAL SCH ×2 (08:34→18:00)
[2016-10-04] MEDS: Heparin 5000 units/ml inj SUBQ SCH ×2 (08:35→21:20)
[2016-10-04] MEDS: Levemir Flexpen SUBQ SCH ×2 (08:36→21:24)
[2016-10-04] MEDS: Cefepime HCl 1 GM in NS 55 ML IVPB SCH (08:38)
[2016-10-04 09:05] LABS: ABG ALLEN TEST POSITIVE; ABG BASE EXCESS 1.2; ABG PCO2 45.2 mmHg (35.0-45.0)
[2016-10-04] MEDS ORDERED: KCl 10% 40mEq/30ml liquid GT ONE ×2 (10:30→11:00)
[2016-10-04] MEDS ORDERED: Acetaminophen 650mg/20.3ml GT PRN (11:00)
[2016-10-04] MEDS ORDERED: Milk of Magnesia 30ml Ud GT PRN (11:00)
[2016-10-04] MEDS ORDERED: Albuterol ud Inhalation HHN PRN (11:00)
--- NOTE | 2016-10-04 11:21 | Infectious Diseases Prog Note ---
"Assessment/Plan Assessment/Plan antibiotics : vancomycin iv, cefepime, fluconazole A 1. pseudomonas | providencia pneumonia 2. MRSA | fungal UTI 3. respiratory failure 4. leucocytosis improving 5. DM 6. HTN P 1. continue iv vancomycin, fluconazole 3 more days 2. d/c cefepime 3. start inhaled amikacin 4. will follow up cultures Subjective ROS Limited/Unobtainable: Yes Allergies: Coded Allergies: No Known Allergies (Unverified , 02/11/13) Objective Vital Signs Last 24 Hour Vital Signs Date Time Temp Pulse Resp B/P Pulse Ox O2 Delivery O2 Flow Rate FiO2 10/04/16 08:35 98.1 75 20 149/85 98 T-piece 10/04/16 08:34 75 149/85 10/04/16 08:00 6.0 30 10/04/16 07:47 104 22 T-piece 10.0 35 10/04/16 07:46 97 T-piece 8.0 35 10/04/16 07:46 T-piece 8.0 35 10/04/16 04:17 97.7 67 20 138/78 96 Trach Collar 10/04/16 04:06 66 20 98 T-piece 10.0 35 10/04/16 04:00 6.0 30 10/04/16 04:00 63 10/04/16 03:53 64 24 96 T-piece 10.0 35 10/04/16 03:53 35 10/04/16 01:01 T-piece 8.0 35 10/04/16 01:00 97 T-piece 8.0 35 10/04/16 00:03 98.2 74 18 125/90 97 Trach Collar 10/04/16 00:00 6.0 30 10/04/16 00:00 73 10/03/16 21:31 72 141/88 10/03/16 20:00 97.0 72 18 141/88 99 Trach Collar 10/03/16 20:00 78 10/03/16 20:00 6.0 30 10/03/16 19:40 T-piece 6.0 40 10/03/16 19:40 96 T-piece 6.0 40 10/03/16 19:00 76 22 T-piece 10.0 35 10/03/16 18:07 78 10/03/16 16:00 98.2 87 22 145/108 100 Room Air 10/03/16 16:00 6.0 30 10/03/16 12:00 6.0 30 10/03/16 12:00 97.9 74 20 151/90 100 Room Air 10/03/16 12:00 78 Height (Feet): 5 Height (Inches): 9.00 Weight (Pounds): 202 HEENT: status post trach Respiratory/Chest: lungs clear Cardiovascular: normal rate, regular rhythm, no gallop/murmur Abdomen: soft, non tender, other - GT Extremities: no edema Laboratory Tests Test 10/04/16 06:50 10/04/16 08:45 White Blood Count 12.6 K/UL (4.8-10.8) H Red Blood Count 4.21 M/UL (4.70-6.10) L Hemoglobin 12.9 G/DL (14.2-18.0) L Hematocrit 38.8 % (42.0-52.0) L Mean Corpuscular Volume 92 FL (80-99) Mean Corpuscular Hemoglobin 30.7 PG (27.0-31.0) Mean Corpuscular Hemoglobin Concent 33.3 G/DL (32.0-36.0) Red Cell Distribution Width 13.3 % (11.6-14.8) Platelet Count 302 K/UL (150-450) Mean Platelet Volume 10.7 FL (6.5-10.1) H Neutrophils (%) (Auto) 60.0 % (45.0-75.0) Lymphocytes (%) (Auto) 24.4 % (20.0-45.0) Monocytes (%) (Auto) 11.0 % (1.0-10.0) H Eosinophils (%) (Auto) 4.0 % (0.0-3.0) H Basophils (%) (Auto) 0.7 % (0.0-2.0) Sodium Level 141 mEQ/L (135-145) Potassium Level 3.7 mEQ/L (3.4-4.9) Chloride Level 103 mEQ/L (98-107) Carbon Dioxide Level 27 mEQ/L (20-30) Anion Gap 11 (5-15) Blood Urea Nitrogen 7 mg/dL (7-23) Creatinine 0.6 mg/dL (0.7-1.2) L Estimat Glomerular Filtration Rate > 60 mL/min (>60) Glucose Level 141 mg/dL (74-106) H Calcium Level 8.2 mg/dL (8.6-10.2) L Magnesium Level 1.9 mg/dL (1.7-2.5) Total Bilirubin 0.3 mg/dL (0.0-1.2) Aspartate Amino Transf (AST/SGOT) 40 U/L (5-40) Alanine Aminotransferase (ALT/SGPT) 63 U/L (3-41) H Alkaline Phosphatase 74 U/L (40-129) Pro-B-Type Natriuretic Peptide 172 pg/mL (0-125) H Total Protein 6.1 g/dL (6.6-8.7) L Albumin 2.6 g/dL (3.5-5.2) L Globulin 3.5 g/dL Albumin/Globulin Ratio 0.7 (1.0-2.7) L Arterial Blood pH 7.388 (7.350-7.450) Arterial Blood Partial Pressure CO2 45.2 mmHg (35.0-45.0) H Arterial Blood Partial Pressure O2 75.8 mmHg (75.0-100.0) Arterial Blood HCO3 26.6 mmol/L (22.0-26.0) H Arterial Blood Oxygen Saturation 95.3 % (92.0-98.0) Arterial Blood Base Excess 1.2 Nghia Test Positive JAMESON MANNING Oct 04, 2016 11:21"
[2016-10-04] MEDS: Amikacin for Inhalation 2ML INH SCH ×2 (13:06→21:30)
[2016-10-04] MEDS: Vancomycin 1.25 GM in D5W 275 ML IVPB SCH (13:17)
[2016-10-04] MEDS ORDERED: NS 275ml ONE (15:34)
[2016-10-04] MEDS ORDERED: Sterile Water Irrig 1000ml IRRIG ONE (16:09)
[2016-10-04] MEDS ORDERED: D5NS 1000ml IV ONE (16:09)
[2016-10-04] MEDS ORDERED: Cefepime HCl 1 GM in NS 55 ML IVPB SCH (21:00)
--- NOTE | 2016-10-04 23:04 | General Progress Note ---
Assessment/Plan Assessment/Plan Dictated Assessment - Resp failure - Azotemia - anemia - s/p PEG - TF tolerated well Recommendations Elevate HOB continue TF - doubt if G-->J wiil be of any benefit Subjective Allergies: Coded Allergies: No Known Allergies (Unverified , 02/11/13) Objective Last 24 Hour Vital Signs Date Time Temp Pulse Resp B/P Pulse Ox O2 Delivery O2 Flow Rate FiO2 10/04/16 21:37 89 22 98 T-piece 35 10/04/16 21:29 86 22 99 T-piece 35 10/04/16 21:17 72 136/84 10/04/16 20:12 T-piece 8.0 35 10/04/16 20:12 95 T-piece 8.0 35 10/04/16 20:00 72 10/04/16 20:00 98.1 71 19 136/84 96 Mechanical Ventilator 10/04/16 20:00 6.0 30 10/04/16 19:10 80 18 T-piece 10.0 35 10/04/16 16:00 87 10/04/16 16:00 6.0 30 10/04/16 16:00 97.9 77 26 142/81 95 Trach Collar 35 10/04/16 13:19 85 22 100 T-piece 35 10/04/16 13:01 80 22 98 T-piece 35 10/04/16 12:50 T-piece 8.0 35 10/04/16 12:49 98 T-piece 8.0 35 10/04/16 12:00 97.5 80 24 153/89 97 Trach Collar 35 10/04/16 12:00 71 10/04/16 12:00 97.5 80 24 153/89 97 Trach Collar 35 10/04/16 12:00 6.0 30 10/04/16 10:00 98.1 73 22 141/83 97 Trach Collar 40 10/04/16 08:35 98.1 75 20 149/85 98 T-piece 10/04/16 08:34 75 149/85 10/04/16 08:00 75 10/04/16 08:00 6.0 30 10/04/16 07:47 104 22 T-piece 10.0 35 10/04/16 07:46 97 T-piece 8.0 35 10/04/16 07:46 T-piece 8.0 35 10/04/16 04:17 97.7 67 20 138/78 96 Trach Collar 10/04/16 04:06 66 20 98 T-piece 10.0 35 10/04/16 04:00 6.0 30 10/04/16 04:00 63 10/04/16 03:53 64 24 96 T-piece 10.0 35 10/04/16 03:53 35 10/04/16 01:01 T-piece 8.0 35 10/04/16 01:00 97 T-piece 8.0 35 10/04/16 00:03 98.2 74 18 125/90 97 Trach Collar 10/04/16 00:00 6.0 30 10/04/16 00:00 73 Intake and Output 10/03/16 10/04/16 19:00 07:00 Intake Total 1460.00 ml 1001.666 ml Output Total 2200 ml Balance 1460.00 ml -1198.334 ml Free Water 100 ml IV Total 1080.00 ml 1001.666 ml Tube Feeding 280 ml Output Urine Total 2200 ml Laboratory Tests 10/04/16 06:50: White Blood Count 12.6H, Red Blood Count 4.21L, Hemoglobin 12.9L, Hematocrit 38.8L, Mean Corpuscular Volume 92, Mean Corpuscular Hemoglobin 30.7, Mean Corpuscular Hemoglobin Concent 33.3, Red Cell Distribution Width 13.3, Platelet Count 302, Mean Platelet Volume 10.7H, Neutrophils (%) (Auto) 60.0, Lymphocytes (%) (Auto) 24.4, Monocytes (%) (Auto) 11.0H, Eosinophils (%) (Auto) 4.0H, Basophils (%) (Auto) 0.7, Sodium Level 141, Potassium Level 3.7, Chloride Level 103, Carbon Dioxide Level 27, Anion Gap 11, Blood Urea Nitrogen 7, Creatinine 0.6L, Estimat Glomerular Filtration Rate > 60, Glucose Level 141H, Calcium Level 8.2L, Magnesium Level 1.9, Total Bilirubin 0.3, Aspartate Amino Transf ( AST/SGOT) 40, Alanine Aminotransferase (ALT/SGPT) 63H, Alkaline Phosphatase 74, Pro-B-Type Natriuretic Peptide 172H, Total Protein 6.1L, Albumin 2.6L, Globulin 3.5, Albumin/Globulin Ratio 0.7L 10/04/16 08:45: Arterial Blood pH 7.388, Arterial Blood Partial Pressure CO2 45.2H, Arterial Blood Partial Pressure O2 75.8, Arterial Blood HCO3 26.6H, Arterial Blood Oxygen Saturation 95.3, Arterial Blood Base Excess 1.2, Nghia Test Positive Height (Feet): 5 Height (Inches): 9.00 Weight (Pounds): 202 DALIAELLIE Oct 04, 2016 23:04
[2016-10-05] VITALS (7 sets, daily range): BP systolic 126–157; BP diastolic 74–96
--- NOTE | 2016-10-05 01:58 | Progress Note ---
DATE: 10/04/2016 CARDIOLOGY PROGRESS NOTE: SUBJECTIVE: The patient remains with tracheostomy collar. No respiratory distress noted. Moderate secretions persist, requires suctioning round the clock. OBJECTIVE: VITAL SIGNS: Afebrile, blood pressure is 138/78, pulse rate 67, and respiratory rate 20. LUNGS: Coarse breath sounds. Scattered rhonchi. HEART: Regular rhythm and rate. Normal S1 and S2. ABDOMEN: Soft. G-tube is intact. EXTREMITIES: Trace edema. Monitored rhythm, sinus. LABORATORY AND DIAGNOSTIC DATA: Sputum culture is positive for Pseudomonas and Providencia. White count is 12.6 and hemoglobin 12.9. Potassium is 3.7, BUN 7, creatinine 0.6, and magnesium 1.9. Pro-natriuretic peptide is 172. IMPRESSION: 1. Healthcare-acquired pneumonia. 2. Tracheostomy. 3. Severe protein-calorie malnutrition. 4. Acute diastolic congestive heart failure. 5. Rehydrated. PLAN: 1. Antibiotics, per Infectious Disease business risk consultant. 2. Diuresis. 3. Bowel regimen. 4. Aspiration precautions. Brady Burks M.D. DR: Ana JOB#: [id number] CC:
[2016-10-05] MEDS: Vancomycin 1.25 GM in D5W 275 ML IVPB SCH ×2 (02:17→15:27)
[2016-10-05] MEDS: Sucralfate 1gm tab GT SCH ×4 (08:57→22:01)
[2016-10-05] MEDS: Tamsulosin 0.4mg cap GT SCH (08:57)
[2016-10-05] MEDS: Metoprolol 25mg tab GT SCH ×2 (08:58→22:00)
[2016-10-05] MEDS: Fluconazole 100mg tab ORAL SCH (08:59)
[2016-10-05] MEDS: Lactobacillus-GG tablet ORAL SCH ×2 (08:59→17:53)
[2016-10-05] MEDS: Tums 500mg GT SCH (08:59)
[2016-10-05] MEDS: Ascorbic Acid 500mg tab GT SCH (08:59)
[2016-10-05] MEDS: Heparin 5000 units/ml inj SUBQ SCH ×2 (09:00→21:58)
[2016-10-05] MEDS: Amikacin for Inhalation 2ML INH SCH ×2 (09:20→19:46)
[2016-10-05] MEDS: Levemir Flexpen SUBQ SCH ×2 (09:24→21:59)
--- NOTE | 2016-10-05 09:27 | Pulmonology Progress Note ---
Assessment/Plan Assessment/Plan IMPRESSION: 1. Respiratory failure. 2. Congestion. 3. Pneumonia, likely jail-acquired. 4. Possible urinary tract infection. 5. Chronic encephalopathy. 6. History of stroke. 7. Urinary retention. 8. Benign prostatic hyperplasia. PLAN care noted suction and aspiration precautions respiratory care monitor for change close follow up in [facility]ARY monitor as is ID follow up aspiration precautions labs noted dc once stable cultures noted repeat chest XR PRN impression, plan, and exam edited and reviewed in detail care discussed with RN Subjective ROS Limited/Unobtainable: Yes Allergies: Coded Allergies: No Known Allergies (Unverified , 02/11/13) Subjective withdrawn poor LOC some congestion cxr without change Objective Last 24 Hour Vital Signs Date Time Temp Pulse Resp B/P Pulse Ox O2 Delivery O2 Flow Rate FiO2 10/05/16 09:10 77 20 98 T-piece 35 10/05/16 09:00 74 20 96 T-piece 8.0 35 10/05/16 08:58 84 142/83 10/05/16 08:00 97.6 84 19 142/83 99 T-piece 35 10/05/16 07:29 74 18 T-piece 8.0 35 10/05/16 07:28 T-piece 8.0 35 10/05/16 07:28 96 T-piece 8.0 35 10/05/16 04:00 97.9 62 20 126/74 94 Mechanical Ventilator 10/05/16 04:00 69 10/05/16 04:00 6.0 30 10/05/16 01:30 96 T-piece 8.0 35 10/05/16 01:30 T-piece 8.0 35 10/05/16 00:00 73 10/05/16 00:00 97.5 79 19 151/89 96 Mechanical Ventilator 10/04/16 23:40 6.0 30 10/04/16 21:37 89 22 98 T-piece 35 10/04/16 21:29 86 22 99 T-piece 35 10/04/16 21:17 72 136/84 10/04/16 20:12 T-piece 8.0 35 10/04/16 20:12 95 T-piece 8.0 35 10/04/16 20:00 72 10/04/16 20:00 98.1 71 19 136/84 96 Mechanical Ventilator 10/04/16 20:00 6.0 30 4/11/17 19:10 80 18 T-piece 10.0 35 10/04/16 16:00 87 10/04/16 16:00 6.0 30 10/04/16 16:00 97.9 77 26 142/81 95 Trach Collar 35 10/04/16 13:19 85 22 100 T-piece 35 10/04/16 13:01 80 22 98 T-piece 35 10/04/16 12:50 T-piece 8.0 35 10/04/16 12:49 98 T-piece 8.0 35 10/04/16 12:00 97.5 80 24 153/89 97 Trach Collar 35 10/04/16 12:00 71 10/04/16 12:00 97.5 80 24 153/89 97 Trach Collar 35 10/04/16 12:00 6.0 30 10/04/16 10:00 98.1 73 22 141/83 97 Trach Collar 40 Intake and Output 10/04/16 10/05/16 18:59 06:59 Intake Total 655.00 ml 855 ml Output Total 2550 ml 450 ml Balance -1895.00 ml 405 ml Free Water 100 ml 100 ml IV Total 275.00 ml 275 ml Tube Feeding 280 ml 480 ml Output Urine Total 2550 ml 450 ml # Bowel Movements 1 Objective GENERAL: The patient is a well-developed male, comfortable. NAD HEENT: Fairly negative. Pupils are sluggish, but reactive. NECK: Supple. Tracheostomy midline. LUNGS: Coarse breath sounds. some rhonchi noted. no wheeze CARDIAC: S1 and S2. Regular rate and rhythm. no murmurs or rubs. ABDOMEN: Soft and nontender. G-tube in place no HSM; no distention EXTREMITIES: No cyanosis or clubbing. There is no edema. NEUROLOGIC: Withdrawn. reviewed and edited comfortable Current Medications Medications (Trade) Dose Ordered Sig/Magda Route PRN Reason Start Time Stop Time Status Last Admin Dose Admin Acetaminophen (Tylenol) 650 mg Q4H PRN GT Prn Headache/Temp > 101 10/04/16 11:00 11/03/16 10:59 Albuterol Sulfate (Proventil) 2.5 mg Q6H PRN HHN Shortness of Breath 10/04/16 11:00 10/09/16 10:59 Amikacin Sulfate (Amikin) 500 mg Q12HR@0900,2100 INH 10/04/16 12:00 10/11/16 11:59 10/05/16 09:20 Ascorbic Acid (Vitamin C) 500 mg DAILY GT 10/05/16 09:00 11/04/16 08:59 10/05/16 08:59 Bisacodyl (Dulcolax) 10 mg DAILYPRN PRN RECTAL Constipation 10/04/16 11:00 11/03/16 10:59 Calcium Carbonate (Tums) 500 mg DAILY GT 10/05/16 09:00 11/04/16 08:59 10/05/16 08:59 Clonidine HCl (Catapres) 0.1 mg Q6H PRN GT SBP>160 10/04/16 11:00 11/03/16 10:59 Finasteride (Proscar) 5 mg DAILY GT 10/05/16 09:00 11/04/16 08:59 10/05/16 08:58 Fluconazole (Diflucan) 100 mg DAILY ORAL 10/05/16 09:00 10/12/16 08:59 10/05/16 08:59 Heparin Sodium (Porcine) (Heparin 5000 units/ml) 5,000 units EVERY 12 HOURS SUBQ 10/04/16 21:00 11/03/16 20:59 10/05/16 09:00 Insulin Detemir (Levemir) 40 units Q12HR SUBQ 10/04/16 21:00 11/03/16 20:59 10/05/16 09:24 Lactobacillus Acidophilus (Culturelle) 1 tab TWICE A DAY ORAL 10/04/16 18:00 11/03/16 17:59 10/05/16 08:59 Magnesium Hydroxide (Mom) 30 ml DAILYPRN PRN GT Constipation 10/04/16 11:00 11/03/16 10:59 Metoprolol Tartrate (Lopressor) 25 mg EVERY 12 HOURS GT 10/04/16 21:00 11/03/16 20:59 10/05/16 08:58 Multivitamins (Multivitamins) 1 tab DAILY ORAL 10/05/16 09:00 11/04/16 08:59 10/05/16 08:59 Sitagliptin Phosphate (Januvia) 100 mg ACBREAKFAST GT 10/05/16 06:30 11/04/16 06:29 10/05/16 06:10 Sucralfate (Carafate) 1 gm FOUR TIMES A DAY GT 10/04/16 13:00 11/03/16 12:59 10/05/16 08:57 Tamsulosin HCl (Flomax) 0.4 mg DAILY GT 10/05/16 09:00 11/04/16 08:59 10/05/16 08:57 Vancomycin HCl (Vanco rx to dose) 1 ea DAILY PRN MISC . 10/05/16 09:00 11/04/16 08:59 Vancomycin HCl/ Dextrose (Vancomycin/D5W) 275 ml @ 183.333 mls/hr Q12HR@0200,1400 IVPB 10/04/16 14:00 10/09/16 13:59 10/05/16 02:17 JO-ANN SAUCEDO Oct 05, 2016 09:27
--- NOTE | 2016-10-05 09:28 | Consultation ---
DATE OF CONSULTATION: 10/04/2016 GASTROENTEROLOGY CONSULTATION CHIEF COMPLAINT: I was asked to see this patient by Dr. Jeremiah Perkins for evaluation of possible jejunostomy conversion. HISTORY OF PRESENT ILLNESS: The patient is a debilitated 66-year-old man with a history of respiratory failure with a tracheostomy and gastrostomy tube, who was brought into the hospital with fevers and sepsis. The patient gastrostomy feeding tube. We will refer the nursing staff following his feeding . He does have a midline hernia around the abdominal wound. His gastrostomy however appears to be in reasonable condition and in reasonable shape. PAST MEDICAL HISTORY: Respiratory failure, encephalopathy, diabetes, hypertension, and status post tracheostomy/gastrostomy tube. FAMILY HISTORY: Noncontributory. SOCIAL HISTORY: The patient has had no history of smoking or drinking. ALLERGIES: None. MEDICATIONS: See chart list for details. REVIEW OF SYSTEMS: Otherwise negative. PHYSICAL EXAMINATION: GENERAL: A debilitated 66-year-old man, seen in his room. HEENT: Normocephalic and atraumatic. Sclerae are anicteric. Oropharynx clear. NECK: Short with a tracheostomy catheter. CHEST: Coarse breath sounds. CARDIOVASCULAR: Regular rate. ABDOMEN: Obese and soft with some tenderness in the abdomen in the lower quadrant as well as midline. EXTREMITIES: No edema. LABORATORY DATA: Laboratory data was noted. ASSESSMENT: This patient presents with respiratory failure and sepsis. He has been tolerating his tube feedings, his gastrostomy tube he would benefit from a gastrostomy to jejunostomy conversion. carefully as this conversion could be considered . RECOMMENDATIONS: 1. Continue gastrostomy tube feedings. 2. Elevate head of bed. 3. . Thank you for asking me to participate in the care of this patient. Rose Carranza M.D. DR: ETHAN JOB#: [id number] CC:
[2016-10-05] MEDS ORDERED: Sodium Bicarbonate 8.4% 50ml Inj IV ONE (10:45)
[2016-10-05] MEDS ORDERED: Heparin 2000 units/Ns 1000ml INJ ONE (10:45)
[2016-10-05] MEDS ORDERED: Lidocaine 1% Plain 30 ml INJ ONE (10:45)
--- NOTE | 2016-10-05 11:24 | Infectious Diseases Prog Note ---
"Assessment/Plan Assessment/Plan antibiotics : vancomycin iv, fluconazole, inhaled amikacin A 1. pseudomonas | providencia pneumonia 2. MRSA | fungal UTI 3. respiratory failure 4. leucocytosis improving 5. DM 6. HTN P 1. continue iv vancomycin, fluconazole 2 more days 2. continue inhaled amikacin 5 more days 3. will follow up cultures Subjective ROS Limited/Unobtainable: Yes Allergies: Coded Allergies: No Known Allergies (Unverified , 02/11/13) Objective Vital Signs Last 24 Hour Vital Signs Date Time Temp Pulse Resp B/P Pulse Ox O2 Delivery O2 Flow Rate FiO2 10/05/16 09:10 77 20 98 T-piece 35 10/05/16 09:00 74 20 96 T-piece 8.0 35 10/05/16 08:58 84 142/83 10/05/16 08:00 6.0 40 10/05/16 08:00 61 10/05/16 08:00 97.6 84 19 142/83 99 T-piece 35 10/05/16 07:29 74 18 T-piece 8.0 35 10/05/16 07:28 T-piece 8.0 35 10/05/16 07:28 96 T-piece 8.0 35 10/05/16 04:00 97.9 62 20 126/74 94 Mechanical Ventilator 10/05/16 04:00 69 10/05/16 04:00 6.0 30 10/05/16 01:30 96 T-piece 8.0 35 10/05/16 01:30 T-piece 8.0 35 10/05/16 00:00 73 10/05/16 00:00 97.5 79 19 151/89 96 Mechanical Ventilator 10/04/16 23:40 6.0 30 10/04/16 21:37 89 22 98 T-piece 35 10/04/16 21:29 86 22 99 T-piece 35 10/04/16 21:17 72 136/84 10/04/16 20:12 T-piece 8.0 35 10/04/16 20:12 95 T-piece 8.0 35 10/04/16 20:00 72 10/04/16 20:00 98.1 71 19 136/84 96 Mechanical Ventilator 10/04/16 20:00 6.0 30 10/04/16 19:10 80 18 T-piece 10.0 35 10/04/16 16:00 87 10/04/16 16:00 6.0 30 10/04/16 16:00 97.9 77 26 142/81 95 Trach Collar 35 10/04/16 13:19 85 22 100 T-piece 35 10/04/16 13:01 80 22 98 T-piece 35 10/04/16 12:50 T-piece 8.0 35 10/04/16 12:49 98 T-piece 8.0 35 10/04/16 12:00 97.5 80 24 153/89 97 Trach Collar 35 10/04/16 12:00 71 10/04/16 12:00 97.5 80 24 153/89 97 Trach Collar 35 10/04/16 12:00 6.0 30 Height (Feet): 5 Height (Inches): 9.00 Weight (Pounds): 202 HEENT: status post trach Respiratory/Chest: lungs clear Cardiovascular: normal rate, regular rhythm, no gallop/murmur Abdomen: soft, non tender, other - GT Extremities: no edema JAMESON MANNING Oct 05, 2016 11:24"
--- NOTE | 2016-10-05 13:34 | General Progress Note ---
Assessment/Plan Problem List: (1) Encephalopathy acute ICD Codes: G93.40 - Encephalopathy, unspecified SNOMED: 4301943 (2) Pneumonia ICD Codes: J18.9 - Pneumonia, unspecified organism SNOMED: 576643830 Qualifiers: (3) G tube feedings ICD Codes: Z93.1 - G tube feedings SNOMED: 243733695 Status: stable, progressing Assessment/Plan gi eval ?j tube- d/w son dc ivf monitor congestion- seems worse now suctioning/resp rx follow up kub abx follow up sputum cultures dc planning- d/w son at length. will consider j tube if pt has persistent sxs of aspiration. Subjective ROS Limited/Unobtainable: No Constitutional: Reports: malaise, weakness HEENT: Reports: no symptoms Cardiovascular: Reports: no symptoms Respiratory: Reports: no symptoms Gastrointestinal/Abdominal: Reports: no symptoms Genitourinary: Reports: no symptoms Neurologic/Psychiatric: Reports: pre-existing deficit, seizure Endocrine: Reports: no symptoms Hematologic/Lymphatic: Reports: no symptoms Allergies: Coded Allergies: No Known Allergies (Unverified , 02/11/13) All Systems: reviewed and negative except above Subjective ? congested. tolerating feeds. xray with bilateral infiltrates. on ivf. no fevers. labs pending \ Objective Last 24 Hour Vital Signs Date Time Temp Pulse Resp B/P Pulse Ox O2 Delivery O2 Flow Rate FiO2 10/05/16 12:19 6.0 35 10/05/16 12:17 71 10/05/16 12:14 97.7 68 19 136/84 97 T-piece 35 10/05/16 09:10 77 20 98 T-piece 35 10/05/16 09:00 74 20 96 T-piece 8.0 35 10/05/16 08:58 84 142/83 10/05/16 08:00 6.0 40 10/05/16 08:00 61 10/05/16 08:00 97.6 84 19 142/83 99 T-piece 35 10/05/16 07:29 74 18 T-piece 8.0 35 10/05/16 07:28 T-piece 8.0 35 10/05/16 07:28 96 T-piece 8.0 35 10/05/16 04:00 97.9 62 20 126/74 94 Mechanical Ventilator 10/05/16 04:00 69 10/05/16 04:00 6.0 30 10/05/16 01:30 96 T-piece 8.0 35 10/05/16 01:30 T-piece 8.0 35 10/05/16 00:00 73 10/05/16 00:00 97.5 79 19 151/89 96 Mechanical Ventilator 10/04/16 23:40 6.0 30 10/04/16 21:37 89 22 98 T-piece 35 10/04/16 21:29 86 22 99 T-piece 35 10/04/16 21:17 72 136/84 10/04/16 20:12 T-piece 8.0 35 10/04/16 20:12 95 T-piece 8.0 35 10/04/16 20:00 72 10/04/16 20:00 98.1 71 19 136/84 96 Mechanical Ventilator 10/04/16 20:00 6.0 30 10/04/16 19:10 80 18 T-piece 10.0 35 10/04/16 16:00 87 10/04/16 16:00 6.0 30 10/04/16 16:00 97.9 77 26 142/81 95 Trach Collar 35 Intake and Output 10/04/16 10/05/16 18:59 06:59 Intake Total 655.00 ml 855 ml Output Total 2550 ml 450 ml Balance -1895.00 ml 405 ml Free Water 100 ml 100 ml IV Total 275.00 ml 275 ml Tube Feeding 280 ml 480 ml Output Urine Total 2550 ml 450 ml # Bowel Movements 1 Height (Feet): 5 Height (Inches): 9.00 Weight (Pounds): 202 General Appearance: WD/WN, alert Neck: supple Cardiovascular: normal rate Respiratory/Chest: rhonchi - bilaterally Abdomen: normal bowel sounds, non tender, soft, no organomegaly Edema: no edema noted Arm (L), no edema noted Arm (R), no edema noted Leg (L), no edema noted Leg (R), no edema noted Pedal (L), no edema noted Pedal (R), no edema noted Generalized Neurologic: disoriented, aphasia Skin: normal pigmentation Objective General Appearance: WD/WN, lethargic, confused Neck: supple Cardiovascular: regular rhythm Respiratory/Chest: crackles/rales, rhonchi - bilaterally Abdomen: normal bowel sounds, non tender, soft, no organomegaly Edema: no edema noted Arm (L), no edema noted Arm (R), no edema noted Leg (L), no edema noted Leg (R), no edema noted Pedal (L), no edema noted Pedal (R), no edema noted Generalized Neurologic: unresponsive, aphasia ANNE LEE Oct 05, 2016 13:34
--- NOTE | 2016-10-05 15:22 | Diagnostic Imaging Report ---
Indications: Needs long-term IV access Technique: Procedure performed at bedside. Ultrasound confirms patent compressible left basilic vein. Total sterile technique, including sterile probe cover and sterile gel, sterile gloves, hand hygiene, hat, mask,, sterile gown, large sterile drape, and preparation with 2% chlorhexidine utilized. Local anesthesia with 1% lidocaine. Under real-time ultrasound guidance, puncture is a vein using 21-gauge needle, passage 0.018 guidewire, exchange for 5 Cuban peel-away sheath. 5 Cuban Bard dual-lumen power PICC cut to 47 cm. It was inserted through the peel-away sheath. Peel-away sheath and guidewire removed. Catheter fixed to the skin. Both catheter ports aspirated and flushed. Patient tolerated procedure well, without immediate complication. Followup chest x-ray obtained, documents catheter tip position at the high right atrium. Impression: Successful bedside placement of left arm PICC under sonographic guidance, as described above.
[2016-10-05] MEDS ORDERED: KCl 10% 20 mEq/15ml liquid GT ONE (20:30)
[2016-10-05 21:37] LABS: EOSINOPHILS % (AUTO) 5.2 % (0.0-3.0); LYMPHOCYTES % (AUTO) 22.5 % (20.0-45.0); MEAN CORPUSCULAR HEMOGLOBIN 33.4 PG (27.0-31.0); MEAN CORPUSCULAR HGB CONC 36.2 G/DL (32.0-36.0); MEAN CORPUSCULAR VOLUME 92 FL (80-99); MEAN PLATELET VOLUME 10.2 FL (6.5-10.1); MONOCYTES % (AUTO) 8.1 % (1.0-10.0); NEUTROPHILS % (AUTO) 62.2 % (45.0-75.0); PLATELET COUNT 355 K/UL (150-450); RED BLOOD COUNT 4.05 M/UL (4.70-6.10); WHITE BLOOD COUNT 15.5 K/UL (4.8-10.8)
[2016-10-05 22:25] LABS: ALANINE AMINOTRANSFERASE 54 U/L (3-41); ALBUMIN/GLOBULIN RATIO 0.8 (1.0-2.7); ANION GAP 11 (5-15); ASPARTATE AMINO TRANSFERASE 37 U/L (5-40); CARBON DIOXIDE 29 mEQ/L (20-30); CHLORIDE 98 mEQ/L (98-107); CREATININE 0.6 mg/dL (0.7-1.2); GLOMERULAR FILTRATION RATE > 60 mL/min (>60); HEMOLYSIS 5; SODIUM 138 mEQ/L (135-145); TOTAL PROTEIN 6.6 g/dL (6.6-8.7)
--- NOTE | 2016-10-05 22:42 | General Progress Note ---
Assessment/Plan Assessment/Plan Assessment - Resp failure - Azotemia - anemia - s/p PEG - TF tolerated well Recommendations - Elevate HOB - continue TF - doubt if G-->J wiil be of any benefit in this patient Subjective Allergies: Coded Allergies: No Known Allergies (Unverified , 02/11/13) Subjective Above noted d/w social staff worker tolerating TF abdominal pattern breathing noted abd wall rectus hernia noted Objective Last 24 Hour Vital Signs Date Time Temp Pulse Resp B/P Pulse Ox O2 Delivery O2 Flow Rate FiO2 10/05/16 22:00 66 157/95 10/05/16 21:18 97.7 21 157/95 98 T-piece 10/05/16 20:00 97.7 74 21 157/95 98 T-piece 10/05/16 19:30 81 20 98 T-piece 35 10/05/16 19:20 97 T-piece 8.0 35 10/05/16 19:20 78 18 T-piece 8.0 35 10/05/16 19:20 T-piece 8.0 35 10/05/16 19:20 78 20 96 T-piece 8.0 35 10/05/16 19:04 78 10/05/16 16:00 77 10/05/16 16:00 98.3 79 21 138/96 94 T-piece 50 10/05/16 16:00 6.0 35 10/05/16 13:05 T-piece 8.0 35 10/05/16 13:05 96 T-piece 8.0 35 10/05/16 12:19 6.0 35 10/05/16 12:17 71 10/05/16 12:14 97.7 68 19 136/84 97 T-piece 35 10/05/16 09:10 77 20 98 T-piece 35 10/05/16 09:00 74 20 96 T-piece 8.0 35 10/05/16 08:58 84 142/83 10/05/16 08:00 6.0 40 10/05/16 08:00 61 10/05/16 08:00 97.6 84 19 142/83 99 T-piece 35 10/05/16 07:29 74 18 T-piece 8.0 35 10/05/16 07:28 T-piece 8.0 35 10/05/16 07:28 96 T-piece 8.0 35 10/05/16 04:00 97.9 62 20 126/74 94 Mechanical Ventilator 10/05/16 04:00 69 10/05/16 04:00 6.0 30 10/05/16 01:30 96 T-piece 8.0 35 10/05/16 01:30 T-piece 8.0 35 10/05/16 00:00 73 10/05/16 00:00 97.5 79 19 151/89 96 Mechanical Ventilator 10/04/16 23:40 6.0 30 Intake and Output 10/04/16 10/05/16 19:00 07:00 Intake Total 695.00 ml 815 ml Output Total 2550 ml 450 ml Balance -1855.00 ml 365 ml Free Water 100 ml 100 ml IV Total 275.00 ml 275 ml Tube Feeding 320 ml 440 ml Output Urine Total 2550 ml 450 ml # Bowel Movements 1 Laboratory Tests 10/05/16 20:16: Sodium Level 138, Potassium Level 4.0, Chloride Level 98, Carbon Dioxide Level 29, Anion Gap 11, Blood Urea Nitrogen 12, Creatinine 0.6L, Estimat Glomerular Filtration Rate > 60, Glucose Level 137H, Calcium Level 9.0, Total Bilirubin 0.3 , Aspartate Amino Transf (AST/SGOT) 37, Alanine Aminotransferase (ALT/SGPT) 54H , Alkaline Phosphatase 78, Pro-B-Type Natriuretic Peptide 120, Total Protein 6.6 , Albumin 3.0L, Globulin 3.6, Albumin/Globulin Ratio 0.8L 10/05/16 20:50: White Blood Count 15.5H, Red Blood Count 4.05L, Hemoglobin 13.5L, Hematocrit 37.4L, Mean Corpuscular Volume 92, Mean Corpuscular Hemoglobin 33.4H, Mean Corpuscular Hemoglobin Concent 36.2H, Red Cell Distribution Width 13.0, Platelet Count 355, Mean Platelet Volume 10.2H, Neutrophils (%) (Auto) 62.2, Lymphocytes (%) (Auto) 22.5, Monocytes (%) (Auto) 8.1, Eosinophils (%) (Auto) 5.2H, Basophils (%) (Auto) 2.0 Height (Feet): 5 Height (Inches): 9.00 Weight (Pounds): 202 Objective WDWN WM NCAT supple, (+) trach Coarse BS RRR Soft obese (+) GT, (+) midline supraumbilical hernia no edema ELLIE GÓMEZ Oct 05, 2016 22:42
[2016-10-06 00:05] VITALS: BP 122/77
--- NOTE | 2016-10-06 00:07 | Progress Note ---
DATE: 10/05/2016 CARDIOLOGY PROGRESS NOTE SUBJECTIVE: The patient remains with congestion and increased secretions. The patient is now on a G-tube. OBJECTIVE: VITAL SIGNS: Blood pressure 136/84, pulse 68, respirations 19, and afebrile. LUNGS: Bilateral breath sounds. Scattered rhonchi. HEART: Regular rhythm and rate. Normal S1 and S2. ABDOMEN: Soft. EXTREMITIES: Trace dependent edema. IMPRESSION: 1. Respiratory failure. 2. Healthcare-acquired pneumonia. 3. Tracheostomy. 4. Acute diastolic congestive heart failure, improved. PLAN: 1. Respiratory hygiene. 2. Consideration for G to J-tube conversion. 3. Antimicrobials per Infectious Disease contaminated land consultant. 4. Additional diuresis. 5. Continue beta blockade. 6. Follow up laboratory studies. 7. Trend natriuretic peptide assay. Brady Burks M.D. DR: BOB JOB#: [id number] CC:
[2016-10-06] MEDS: Vancomycin 1.25 GM in D5W 275 ML IVPB SCH ×2 (02:32→13:54)
--- NOTE | 2016-10-06 03:08 | Progress Note ---
DATE: 10/06/2016 CARDIOLOGY PROGRESS NOTE SUBJECTIVE: The patient is in no distress. Moderate secretions persists. Suctioning and respiratory hygiene continues to be required. The patient has a T-piece in place with tracheostomy. OBJECTIVE: VITAL SIGNS: Blood pressure 122/77, pulse 74, and respiratory rate 20. Monitored sinus rhythm. LUNGS: Bilateral breath sounds. Scattered rhonchi. HEART: Regular rhythm and rate. Normal S1 and S2. ABDOMEN: Soft. G-tube intact. EXTREMITIES: Trace dependent edema. LABORATORY DATA: White count 15.5 and hemoglobin 13.5. Potassium 4, BUN 12, and creatinine 0.6. Albumin 3. Pro-natriuretic peptide 120. IMPRESSION: 1. Respiratory failure. 2. Aspiration pneumonia. 3. Mild protein-calorie malnutrition. 4. No signs of acute congestive heart failure. 5. Worsening leukocytosis. PLAN: 1. Followup sputum studies. 2. Antibiotics per Infectious Disease fashion consultant sales. 3. Hold additional diuresis. 4. Respiratory hygiene. 5. Bronchodilators. Brady Burks M.D. DR: ENRIQUE JOB#: [id number] CC:
[2016-10-06 04:00] VITALS: BP 134/87
[2016-10-06 08:00] VITALS: BP 132/85
--- NOTE | 2016-10-06 08:24 | Pulmonology Progress Note ---
Assessment/Plan Assessment/Plan IMPRESSION: 1. Respiratory failure. 2. Congestion. 3. Pneumonia, likely alf-acquired. 4. Possible urinary tract infection. 5. Chronic encephalopathy. 6. History of stroke. 7. Urinary retention. 8. Benign prostatic hyperplasia. PLAN care noted no real change in exam PICC placed suction and aspiration precautions respiratory care monitor for change close follow up in [facility] monitor as is ID follow up; WBC always elevated near 15 aspiration precautions labs noted cultures noted repeat chest XR PRN dc to SNF ok per pulmonary impression, plan, and exam edited and reviewed in detail care discussed with RN Subjective ROS Limited/Unobtainable: Yes Allergies: Coded Allergies: No Known Allergies (Unverified , 02/11/13) Subjective withdrawn poor LOC some congestion cxr without change Objective Last 24 Hour Vital Signs Date Time Temp Pulse Resp B/P Pulse Ox O2 Delivery O2 Flow Rate FiO2 10/06/16 08:07 6.0 35 10/06/16 07:17 96 T-piece 8.0 35 10/06/16 07:17 80 18 T-piece 8.0 35 10/06/16 07:17 T-piece 8.0 35 10/06/16 04:23 71 10/06/16 04:00 6.0 35 10/06/16 04:00 97.2 77 20 134/87 90 T-piece 10/06/16 00:42 T-piece 8.0 35 10/06/16 00:42 96 T-piece 8.0 35 10/06/16 00:05 97.2 74 20 122/77 94 T-piece 10/06/16 00:00 6.0 35 10/05/16 23:49 70 10/05/16 22:00 66 157/95 10/05/16 21:18 97.7 21 157/95 98 T-piece 10/05/16 20:00 6.0 35 10/05/16 20:00 97.7 74 21 157/95 98 T-piece 10/05/16 19:30 81 20 98 T-piece 35 10/05/16 19:20 97 T-piece 8.0 35 10/05/16 19:20 78 18 T-piece 8.0 35 10/05/16 19:20 T-piece 8.0 35 10/05/16 19:20 78 20 96 T-piece 8.0 35 10/05/16 19:04 78 10/05/16 16:00 77 10/05/16 16:00 98.3 79 21 138/96 94 T-piece 50 10/05/16 16:00 6.0 35 10/05/16 13:05 T-piece 8.0 35 10/05/16 13:05 96 T-piece 8.0 35 10/05/16 12:19 6.0 35 10/05/16 12:17 71 10/05/16 12:14 97.7 68 19 136/84 97 T-piece 35 10/05/16 09:10 77 20 98 T-piece 35 10/05/16 09:00 74 20 96 T-piece 8.0 35 10/05/16 08:58 84 142/83 Intake and Output 10/05/16 10/06/16 18:59 06:59 Intake Total 810 ml 905.000 ml Output Total 1000 ml 1455 ml Balance -190 ml -550.000 ml Free Water 100 ml IV Total 275 ml 275.000 ml Tube Feeding 440 ml 480 ml Other 95 ml 50 ml Output Urine Total 1000 ml 1455 ml # Bowel Movements 2 Objective GENERAL: The patient is a well-developed male, comfortable. NAD HEENT: Fairly negative. Pupils are sluggish, but reactive. NECK: Supple. Tracheostomy midline. LUNGS: Coarse breath sounds. some rhonchi noted. no wheeze CARDIAC: S1 and S2. Regular rate and rhythm. no murmurs or rubs. ABDOMEN: Soft and nontender. G-tube in place no HSM; no distention EXTREMITIES: No cyanosis or clubbing. There is no edema. NEUROLOGIC: Withdrawn. reviewed and edited comfortable Laboratory Tests 10/05/16 20:16: Sodium Level 138, Potassium Level 4.0, Chloride Level 98, Carbon Dioxide Level 29, Anion Gap 11, Blood Urea Nitrogen 12, Creatinine 0.6L, Estimat Glomerular Filtration Rate > 60, Glucose Level 137H, Calcium Level 9.0, Total Bilirubin 0.3 , Aspartate Amino Transf (AST/SGOT) 37, Alanine Aminotransferase (ALT/SGPT) 54H , Alkaline Phosphatase 78, Pro-B-Type Natriuretic Peptide 120, Total Protein 6.6 , Albumin 3.0L, Globulin 3.6, Albumin/Globulin Ratio 0.8L 10/05/16 20:50: White Blood Count 15.5H, Red Blood Count 4.05L, Hemoglobin 13.5L, Hematocrit 37.4L, Mean Corpuscular Volume 92, Mean Corpuscular Hemoglobin 33.4H, Mean Corpuscular Hemoglobin Concent 36.2H, Red Cell Distribution Width 13.0, Platelet Count 355, Mean Platelet Volume 10.2H, Neutrophils (%) (Auto) 62.2, Lymphocytes (%) (Auto) 22.5, Monocytes (%) (Auto) 8.1, Eosinophils (%) (Auto) 5.2H, Basophils (%) (Auto) 2.0 Current Medications Medications (Trade) Dose Ordered Sig/Magda Route PRN Reason Start Time Stop Time Status Last Admin Dose Admin Acetaminophen (Tylenol) 650 mg Q4H PRN GT Prn Headache/Temp > 101 10/04/16 11:00 11/03/16 10:59 Albuterol Sulfate (Proventil) 2.5 mg Q6H PRN HHN Shortness of Breath 10/04/16 11:00 10/09/16 10:59 Amikacin Sulfate (Amikin) 500 mg Q12HR@0900,2100 INH 10/04/16 12:00 10/11/16 11:59 10/05/16 19:46 Ascorbic Acid (Vitamin C) 500 mg DAILY GT 10/05/16 09:00 11/04/16 08:59 10/05/16 08:59 Bisacodyl (Dulcolax) 10 mg DAILYPRN PRN RECTAL Constipation 10/04/16 11:00 11/03/16 10:59 Calcium Carbonate (Tums) 500 mg DAILY GT 10/05/16 09:00 11/04/16 08:59 10/05/16 08:59 Clonidine HCl (Catapres) 0.1 mg Q6H PRN GT SBP>160 10/04/16 11:00 11/03/16 10:59 Finasteride (Proscar) 5 mg DAILY GT 10/05/16 09:00 11/04/16 08:59 10/05/16 08:58 Fluconazole (Diflucan) 100 mg DAILY ORAL 10/05/16 09:00 10/12/16 08:59 10/05/16 08:59 Heparin Sodium (Porcine) (Heparin 5000 units/ml) 5,000 units EVERY 12 HOURS SUBQ 10/04/16 21:00 11/03/16 20:59 10/05/16 21:58 Insulin Detemir (Levemir) 40 units Q12HR SUBQ 10/04/16 21:00 11/03/16 20:59 10/05/16 21:59 Lactobacillus Acidophilus (Culturelle) 1 tab TWICE A DAY ORAL 10/04/16 18:00 11/03/16 17:59 10/05/16 17:53 Magnesium Hydroxide (Mom) 30 ml DAILYPRN PRN GT Constipation 10/04/16 11:00 11/03/16 10:59 Metoprolol Tartrate (Lopressor) 25 mg EVERY 12 HOURS GT 10/04/16 21:00 11/03/16 20:59 10/05/16 22:00 Multivitamins (Multivitamins) 1 tab DAILY ORAL 10/05/16 09:00 11/04/16 08:59 10/05/16 08:59 Sitagliptin Phosphate (Januvia) 100 mg ACBREAKFAST GT 10/05/16 06:30 11/04/16 06:29 10/06/16 06:13 Sucralfate (Carafate) 1 gm FOUR TIMES A DAY GT 10/04/16 13:00 11/03/16 12:59 10/05/16 22:01 Tamsulosin HCl (Flomax) 0.4 mg DAILY GT 10/05/16 09:00 11/04/16 08:59 10/05/16 08:57 Vancomycin HCl (Vanco rx to dose) 1 ea DAILY PRN MISC . 10/05/16 09:00 11/04/16 08:59 Vancomycin HCl/ Dextrose (Vancomycin/D5W) 275 ml @ 183.333 mls/hr Q12HR@0200,1400 IVPB 10/04/16 14:00 10/09/16 13:59 10/06/16 02:32 JO-ANN SAUCEDO Oct 06, 2016 08:24
[2016-10-06] MEDS: Tamsulosin 0.4mg cap GT SCH (08:30)
[2016-10-06] MEDS: Tums 500mg GT SCH (08:30)
[2016-10-06] MEDS: Sucralfate 1gm tab GT SCH ×4 (08:30→21:47)
[2016-10-06] MEDS: Fluconazole 100mg tab ORAL SCH (08:31)
[2016-10-06] MEDS: Metoprolol 25mg tab GT SCH ×2 (08:31→21:46)
[2016-10-06] MEDS: Lactobacillus-GG tablet ORAL SCH ×2 (08:31→17:22)
[2016-10-06] MEDS: Ascorbic Acid 500mg tab GT SCH (08:31)
[2016-10-06] MEDS: Heparin 5000 units/ml inj SUBQ SCH ×2 (08:32→21:49)
[2016-10-06] MEDS: Levemir Flexpen SUBQ SCH ×2 (08:37→21:50)
[2016-10-06] MEDS: Amikacin for Inhalation 2ML INH SCH ×2 (08:59→20:58)
--- NOTE | 2016-10-06 10:28 | Infectious Diseases Prog Note ---
Assessment/Plan Assessment/Plan A: Sepsis Pneumonia UTI DM HPN Encephalopathy P; continue Fluconazole& Vancomycin X 1 day Continue Amikacin inhaler X 4 days Subjective ROS Limited/Unobtainable: Yes Allergies: Coded Allergies: No Known Allergies (Unverified , 02/11/13) Objective Vital Signs Last 24 Hour Vital Signs Date Time Temp Pulse Resp B/P Pulse Ox O2 Delivery O2 Flow Rate FiO2 10/06/16 09:07 78 18 97 T-piece 10.0 35 10/06/16 09:00 72 18 96 T-piece 8.0 35 10/06/16 08:31 74 132/85 10/06/16 08:07 6.0 35 10/06/16 08:00 71 10/06/16 08:00 97.9 77 20 132/85 97 T-piece 6.0 35 10/06/16 07:17 96 T-piece 8.0 35 10/06/16 07:17 80 18 T-piece 8.0 35 10/06/16 07:17 T-piece 8.0 35 10/06/16 04:23 71 10/06/16 04:00 6.0 35 10/06/16 04:00 97.2 77 20 134/87 90 T-piece 10/06/16 00:42 T-piece 8.0 35 10/06/16 00:42 96 T-piece 8.0 35 10/06/16 00:05 97.2 74 20 122/77 94 T-piece 10/06/16 00:00 6.0 35 10/05/16 23:49 70 10/05/16 22:00 66 157/95 10/05/16 21:18 97.7 21 157/95 98 T-piece 10/05/16 20:00 6.0 35 10/05/16 20:00 97.7 74 21 157/95 98 T-piece 10/05/16 19:30 81 20 98 T-piece 35 10/05/16 19:20 97 T-piece 8.0 35 10/05/16 19:20 78 18 T-piece 8.0 35 10/05/16 19:20 T-piece 8.0 35 10/05/16 19:20 78 20 96 T-piece 8.0 35 10/05/16 19:04 78 10/05/16 16:00 77 10/05/16 16:00 98.3 79 21 138/96 94 T-piece 50 10/05/16 16:00 6.0 35 10/05/16 13:05 T-piece 8.0 35 10/05/16 13:05 96 T-piece 8.0 35 10/05/16 12:19 6.0 35 10/05/16 12:17 71 10/05/16 12:14 97.7 68 19 136/84 97 T-piece 35 Height (Feet): 5 Height (Inches): 9.00 Weight (Pounds): 202 HEENT: status post trach Respiratory/Chest: lungs clear, other - on T bar Cardiovascular: normal rate Abdomen: soft, non tender, other - GT feeding Extremities: no edema, other - left arm PICC line Neurologic/Psychiatric: unresponsiveness Laboratory Tests Test 10/05/16 20:16 10/05/16 20:50 Sodium Level 138 mEQ/L (135-145) Potassium Level 4.0 mEQ/L (3.4-4.9) Chloride Level 98 mEQ/L (98-107) Carbon Dioxide Level 29 mEQ/L (20-30) Anion Gap 11 (5-15) Blood Urea Nitrogen 12 mg/dL (7-23) Creatinine 0.6 mg/dL (0.7-1.2) L Estimat Glomerular Filtration Rate > 60 mL/min (>60) Glucose Level 137 mg/dL (74-106) H Calcium Level 9.0 mg/dL (8.6-10.2) Total Bilirubin 0.3 mg/dL (0.0-1.2) Aspartate Amino Transf (AST/SGOT) 37 U/L (5-40) Alanine Aminotransferase (ALT/SGPT) 54 U/L (3-41) H Alkaline Phosphatase 78 U/L (40-129) Pro-B-Type Natriuretic Peptide 120 pg/mL (0-125) Total Protein 6.6 g/dL (6.6-8.7) Albumin 3.0 g/dL (3.5-5.2) L Globulin 3.6 g/dL Albumin/Globulin Ratio 0.8 (1.0-2.7) L White Blood Count 15.5 K/UL (4.8-10.8) H Red Blood Count 4.05 M/UL (4.70-6.10) L Hemoglobin 13.5 G/DL (14.2-18.0) L Hematocrit 37.4 % (42.0-52.0) L Mean Corpuscular Volume 92 FL (80-99) Mean Corpuscular Hemoglobin 33.4 PG (27.0-31.0) H Mean Corpuscular Hemoglobin Concent 36.2 G/DL (32.0-36.0) H Red Cell Distribution Width 13.0 % (11.6-14.8) Platelet Count 355 K/UL (150-450) Mean Platelet Volume 10.2 FL (6.5-10.1) H Neutrophils (%) (Auto) 62.2 % (45.0-75.0) Lymphocytes (%) (Auto) 22.5 % (20.0-45.0) Monocytes (%) (Auto) 8.1 % (1.0-10.0) Eosinophils (%) (Auto) 5.2 % (0.0-3.0) H Basophils (%) (Auto) 2.0 % (0.0-2.0) Current Medications Medications (Trade) Dose Ordered Sig/Magda Route PRN Reason Start Time Stop Time Status Last Admin Dose Admin Acetaminophen (Tylenol) 650 mg Q4H PRN GT Prn Headache/Temp > 101 10/04/16 11:00 11/03/16 10:59 Albuterol Sulfate (Proventil) 2.5 mg Q6H PRN HHN Shortness of Breath 10/04/16 11:00 10/09/16 10:59 Amikacin Sulfate (Amikin) 500 mg Q12HR@0900,2100 INH 10/04/16 12:00 10/11/16 11:59 10/06/16 08:59 Ascorbic Acid (Vitamin C) 500 mg DAILY GT 10/05/16 09:00 11/04/16 08:59 10/06/16 08:31 Bisacodyl (Dulcolax) 10 mg DAILYPRN PRN RECTAL Constipation 10/04/16 11:00 11/03/16 10:59 Calcium Carbonate (Tums) 500 mg DAILY GT 10/05/16 09:00 11/04/16 08:59 10/06/16 08:30 Clonidine HCl (Catapres) 0.1 mg Q6H PRN GT SBP>160 10/04/16 11:00 11/03/16 10:59 Finasteride (Proscar) 5 mg DAILY GT 10/05/16 09:00 11/04/16 08:59 10/06/16 08:31 Fluconazole (Diflucan) 100 mg DAILY ORAL 10/05/16 09:00 10/12/16 08:59 10/06/16 08:31 Heparin Sodium (Porcine) (Heparin 5000 units/ml) 5,000 units EVERY 12 HOURS SUBQ 10/04/16 21:00 11/03/16 20:59 10/06/16 08:32 Insulin Detemir (Levemir) 40 units Q12HR SUBQ 10/04/16 21:00 11/03/16 20:59 10/06/16 08:37 Lactobacillus Acidophilus (Culturelle) 1 tab TWICE A DAY ORAL 10/04/16 18:00 11/03/16 17:59 10/06/16 08:31 Magnesium Hydroxide (Mom) 30 ml DAILYPRN PRN GT Constipation 10/04/16 11:00 11/03/16 10:59 Metoprolol Tartrate (Lopressor) 25 mg EVERY 12 HOURS GT 10/04/16 21:00 11/03/16 20:59 10/06/16 08:31 Multivitamins (Multivitamins) 1 tab DAILY ORAL 10/05/16 09:00 11/04/16 08:59 10/06/16 08:31 Sitagliptin Phosphate (Januvia) 100 mg ACBREAKFAST GT 10/05/16 06:30 11/04/16 06:29 10/06/16 06:13 Sucralfate (Carafate) 1 gm FOUR TIMES A DAY GT 10/04/16 13:00 11/03/16 12:59 10/06/16 08:30 Tamsulosin HCl (Flomax) 0.4 mg DAILY GT 10/05/16 09:00 11/04/16 08:59 10/06/16 08:30 Vancomycin HCl (Vanco rx to dose) 1 ea DAILY PRN MISC . 10/05/16 09:00 11/04/16 08:59 Vancomycin HCl/ Dextrose (Vancomycin/D5W) 275 ml @ 183.333 mls/hr Q12HR@0200,1400 IVPB 10/04/16 14:00 10/09/16 13:59 10/06/16 02:32 JACLYN MCCANN Oct 06, 2016 10:28
[2016-10-06 12:00] VITALS: BP 132/79
--- NOTE | 2016-10-06 12:50 | General Progress Note ---
Assessment/Plan Problem List: (1) Encephalopathy acute ICD Codes: G93.40 - Encephalopathy, unspecified SNOMED: 7107381 (2) Pneumonia ICD Codes: J18.9 - Pneumonia, unspecified organism SNOMED: 719502893 Qualifiers: (3) G tube feedings ICD Codes: Z93.1 - G tube feedings SNOMED: 963395084 Assessment/Plan check wbc dc ivf monitor congestion- seems worse now suctioning/resp rx follow up kub abx follow up sputum cultures dc planning- d/w son at length. will consider j tube if pt has persistent sxs of aspiration. dc planning Subjective ROS Limited/Unobtainable: No Constitutional: Reports: malaise, weakness HEENT: Reports: no symptoms Cardiovascular: Reports: no symptoms Respiratory: Reports: cough, sputum Gastrointestinal/Abdominal: Reports: no symptoms Genitourinary: Reports: no symptoms Neurologic/Psychiatric: Reports: pre-existing deficit Endocrine: Reports: no symptoms Hematologic/Lymphatic: Reports: no symptoms Allergies: Coded Allergies: No Known Allergies (Unverified , 02/11/13) All Systems: reviewed and negative except above Subjective ? less congested. tolerating feeds. xray with bilateral infiltrates. on ivf. no fevers. labs pending. \ Objective Last 24 Hour Vital Signs Date Time Temp Pulse Resp B/P Pulse Ox O2 Delivery O2 Flow Rate FiO2 10/06/16 12:00 98.1 75 21 132/79 97 T-piece 6.0 35 10/06/16 09:07 78 18 97 T-piece 10.0 35 10/06/16 09:00 72 18 96 T-piece 8.0 35 10/06/16 08:31 74 132/85 10/06/16 08:07 6.0 35 10/06/16 08:00 71 10/06/16 08:00 97.9 77 20 132/85 97 T-piece 6.0 35 10/06/16 07:17 96 T-piece 8.0 35 10/06/16 07:17 80 18 T-piece 8.0 35 10/06/16 07:17 T-piece 8.0 35 10/06/16 04:23 71 10/06/16 04:00 6.0 35 10/06/16 04:00 97.2 77 20 134/87 90 T-piece 10/06/16 00:42 T-piece 8.0 35 10/06/16 00:42 96 T-piece 8.0 35 10/06/16 00:05 97.2 74 20 122/77 94 T-piece 10/06/16 00:00 6.0 35 10/05/16 23:49 70 10/05/16 22:00 66 157/95 10/05/16 21:18 97.7 21 157/95 98 T-piece 10/05/16 20:00 6.0 35 10/05/16 20:00 97.7 74 21 157/95 98 T-piece 10/05/16 19:30 81 20 98 T-piece 35 10/05/16 19:20 97 T-piece 8.0 35 10/05/16 19:20 78 18 T-piece 8.0 35 10/05/16 19:20 T-piece 8.0 35 10/05/16 19:20 78 20 96 T-piece 8.0 35 10/05/16 19:04 78 10/05/16 16:00 77 10/05/16 16:00 98.3 79 21 138/96 94 T-piece 50 10/05/16 16:00 6.0 35 10/05/16 13:05 T-piece 8.0 35 10/05/16 13:05 96 T-piece 8.0 35 Intake and Output 10/05/16 10/06/16 19:00 07:00 Intake Total 850 ml 905.000 ml Output Total 1000 ml 1455 ml Balance -150 ml -550.000 ml Free Water 100 ml IV Total 275 ml 275.000 ml Tube Feeding 480 ml 480 ml Other 95 ml 50 ml Output Urine Total 1000 ml 1455 ml # Bowel Movements 2 Laboratory Tests 10/05/16 20:16: Sodium Level 138, Potassium Level 4.0, Chloride Level 98, Carbon Dioxide Level 29, Anion Gap 11, Blood Urea Nitrogen 12, Creatinine 0.6L, Estimat Glomerular Filtration Rate > 60, Glucose Level 137H, Calcium Level 9.0, Total Bilirubin 0.3 , Aspartate Amino Transf (AST/SGOT) 37, Alanine Aminotransferase (ALT/SGPT) 54H , Alkaline Phosphatase 78, Pro-B-Type Natriuretic Peptide 120, Total Protein 6.6 , Albumin 3.0L, Globulin 3.6, Albumin/Globulin Ratio 0.8L 10/05/16 20:50: White Blood Count 15.5H, Red Blood Count 4.05L, Hemoglobin 13.5L, Hematocrit 37.4L, Mean Corpuscular Volume 92, Mean Corpuscular Hemoglobin 33.4H, Mean Corpuscular Hemoglobin Concent 36.2H, Red Cell Distribution Width 13.0, Platelet Count 355, Mean Platelet Volume 10.2H, Neutrophils (%) (Auto) 62.2, Lymphocytes (%) (Auto) 22.5, Monocytes (%) (Auto) 8.1, Eosinophils (%) (Auto) 5.2H, Basophils (%) (Auto) 2.0 Height (Feet): 5 Height (Inches): 9.00 Weight (Pounds): 202 Objective General Appearance: WD/WN, lethargic, confused Neck: supple Cardiovascular: regular rhythm Respiratory/Chest: crackles/rales, rhonchi - bilaterally Abdomen: normal bowel sounds, non tender, soft, no organomegaly Edema: no edema noted Arm (L), no edema noted Arm (R), no edema noted Leg (L), no edema noted Leg (R), no edema noted Pedal (L), no edema noted Pedal (R), no edema noted Generalized Neurologic: unresponsive, aphasia ANNE LEE Oct 06, 2016 12:50
[2016-10-06 14:39] LABS: BASOPHILS % (AUTO) 1.2 % (0.0-2.0); EOSINOPHILS % (AUTO) 4.1 % (0.0-3.0); LYMPHOCYTES % (AUTO) 25.8 % (20.0-45.0); MEAN CORPUSCULAR HGB CONC 32.6 G/DL (32.0-36.0); MEAN CORPUSCULAR VOLUME 92 FL (80-99); MEAN PLATELET VOLUME 9.6 FL (6.5-10.1); MONOCYTES % (AUTO) 11.3 % (1.0-10.0); NEUTROPHILS % (AUTO) 57.6 % (45.0-75.0); PLATELET COUNT 417 K/UL (150-450); RED BLOOD COUNT 4.52 M/UL (4.70-6.10); WHITE BLOOD COUNT 14.1 K/UL (4.8-10.8)
[2016-10-06 16:00] VITALS: BP 149/79
[2016-10-06 20:00] VITALS: BP 126/72
--- NOTE | 2016-10-06 22:00 | General Progress Note ---
Assessment/Plan Assessment/Plan Assessment - Resp failure - Azotemia - anemia - s/p PEG - TF tolerated well Recommendations - Elevate HOB - continue TF - doubt if G-->J wiil be of any benefit in this patient Subjective Allergies: Coded Allergies: No Known Allergies (Unverified , 02/11/13) Subjective Above noted no events overnight tolerating TF abdominal pattern breathing noted abd wall rectus hernia noted Objective Last 24 Hour Vital Signs Date Time Temp Pulse Resp B/P Pulse Ox O2 Delivery O2 Flow Rate FiO2 10/06/16 21:46 61 126/72 10/06/16 21:12 82 18 100 T-piece 10.0 35 10/06/16 20:57 73 18 99 T-piece 8.0 35 10/06/16 19:21 T-piece 8.0 35 10/06/16 19:21 99 T-piece 8.0 35 10/06/16 19:10 62 18 T-piece 8.0 35 10/06/16 16:00 6.0 35 10/06/16 16:00 68 10/06/16 16:00 97.9 68 24 149/79 97 T-piece 6.0 35 10/06/16 12:30 97 T-piece 8.0 35 10/06/16 12:30 T-piece 8.0 35 10/06/16 12:00 66 10/06/16 12:00 98.1 75 21 132/79 97 T-piece 6.0 35 10/06/16 12:00 6.0 35 10/06/16 09:07 78 18 97 T-piece 10.0 35 10/06/16 09:00 72 18 96 T-piece 8.0 35 10/06/16 08:31 74 132/85 10/06/16 08:07 6.0 35 10/06/16 08:00 71 10/06/16 08:00 97.9 77 20 132/85 97 T-piece 6.0 35 10/06/16 07:17 96 T-piece 8.0 35 10/06/16 07:17 80 18 T-piece 8.0 35 10/06/16 07:17 T-piece 8.0 35 10/06/16 04:23 71 10/06/16 04:00 6.0 35 10/06/16 04:00 97.2 77 20 134/87 90 T-piece 4/13/17 00:42 T-piece 8.0 35 10/06/16 00:42 96 T-piece 8.0 35 10/06/16 00:05 97.2 74 20 122/77 94 T-piece 10/06/16 00:00 6.0 35 10/05/16 23:49 70 Intake and Output 10/05/16 10/06/16 19:00 07:00 Intake Total 850 ml 905.000 ml Output Total 1000 ml 1455 ml Balance -150 ml -550.000 ml Free Water 100 ml IV Total 275 ml 275.000 ml Tube Feeding 480 ml 480 ml Other 95 ml 50 ml Output Urine Total 1000 ml 1455 ml # Bowel Movements 2 Laboratory Tests 10/06/16 14:00: White Blood Count 14.1H, Red Blood Count 4.52L, Hemoglobin 13.6L, Hematocrit 41.7L, Mean Corpuscular Volume 92, Mean Corpuscular Hemoglobin 30.0, Mean Corpuscular Hemoglobin Concent 32.6, Red Cell Distribution Width 13.0, Platelet Count 417, Mean Platelet Volume 9.6, Neutrophils (%) (Auto) 57.6, Lymphocytes (% ) (Auto) 25.8, Monocytes (%) (Auto) 11.3H, Eosinophils (%) (Auto) 4.1H, Basophils (%) (Auto) 1.2 Height (Feet): 5 Height (Inches): 9.00 Weight (Pounds): 202 Objective WDWN WM NCAT supple, (+) trach Coarse BS RRR Soft obese (+) GT, (+) midline supraumbilical hernia no edema ELLIE GÓMEZ Oct 06, 2016 22:00
[2016-10-07] VITALS: BP 129/81
[2016-10-07] MEDS: Vancomycin 1.25 GM in D5W 275 ML IVPB SCH (02:21)
[2016-10-07 04:00] VITALS: BP 160/84
[2016-10-07 05:19] LABS: BASOPHILS % (AUTO) 1.5 % (0.0-2.0); EOSINOPHILS % (AUTO) 4.4 % (0.0-3.0); LYMPHOCYTES % (AUTO) 17.9 % (20.0-45.0); MEAN CORPUSCULAR HEMOGLOBIN 30.4 PG (27.0-31.0); MEAN CORPUSCULAR HGB CONC 32.8 G/DL (32.0-36.0); MEAN CORPUSCULAR VOLUME 93 FL (80-99); MEAN PLATELET VOLUME 11.9 FL (6.5-10.1); MONOCYTES % (AUTO) 9.6 % (1.0-10.0); NEUTROPHILS % (AUTO) 66.7 % (45.0-75.0); PLATELET COUNT 418 K/UL (150-450); RED BLOOD COUNT 4.35 M/UL (4.70-6.10); WHITE BLOOD COUNT 14.8 K/UL (4.8-10.8)
[2016-10-07 05:36] LABS: ALANINE AMINOTRANSFERASE 48 U/L (3-41); ALBUMIN/GLOBULIN RATIO 0.7 (1.0-2.7); ANION GAP 9 (5-15); ASPARTATE AMINO TRANSFERASE 32 U/L (5-40); CARBON DIOXIDE 29 mEQ/L (20-30); CHLORIDE 100 mEQ/L (98-107); CREATININE 0.6 mg/dL (0.7-1.2); GLOMERULAR FILTRATION RATE > 60 mL/min (>60); HEMOLYSIS 6; POTASSIUM 4.1 mEQ/L (3.4-4.9); SODIUM 138 mEQ/L (135-145); TOTAL PROTEIN 6.5 g/dL (6.6-8.7)
[2016-10-07 08:00] VITALS: BP 145/84
--- NOTE | 2016-10-07 08:50 | Pulmonology Progress Note ---
Assessment/Plan Assessment/Plan IMPRESSION: 1. Respiratory failure. 2. Congestion. 3. Pneumonia, likely skilled nursing-acquired. 4. Possible urinary tract infection. 5. Chronic encephalopathy. 6. History of stroke. 7. Urinary retention. 8. Benign prostatic hyperplasia. PLAN dc planning PICC placed suction and aspiration precautions respiratory care as is monitor for change close follow up in [facility] ID follow up; WBC always elevated near 15 aspiration precautions labs noted cultures noted repeat chest XR PRN dc to SNF hopefully today impression, plan, and exam edited and reviewed in detail care discussed with RN Subjective ROS Limited/Unobtainable: Yes Allergies: Coded Allergies: No Known Allergies (Unverified , 02/11/13) Subjective withdrawn poor LOC some congestion cxr without change Objective Last 24 Hour Vital Signs Date Time Temp Pulse Resp B/P Pulse Ox O2 Delivery O2 Flow Rate FiO2 10/07/16 04:00 6.0 35 10/07/16 04:00 98.1 96 24 160/84 98 T-piece 10/07/16 04:00 62 10/07/16 01:15 T-piece 8.0 35 10/07/16 01:15 98 T-piece 8.0 35 10/07/16 00:00 97.4 67 24 129/81 96 T-piece 10/07/16 00:00 6.0 35 10/06/16 23:35 71 10/06/16 21:46 61 126/72 10/06/16 21:12 82 18 100 T-piece 10.0 35 10/06/16 20:57 73 18 99 T-piece 8.0 35 10/06/16 20:00 6.0 35 10/06/16 20:00 97.7 61 18 126/72 99 T-piece 10/06/16 19:21 T-piece 8.0 35 10/06/16 19:21 99 T-piece 8.0 35 10/06/16 19:10 62 18 T-piece 8.0 35 10/06/16 17:42 68 10/06/16 16:00 6.0 35 10/06/16 16:00 68 10/06/16 16:00 97.9 68 24 149/79 97 T-piece 6.0 35 10/06/16 12:30 97 T-piece 8.0 35 10/06/16 12:30 T-piece 8.0 35 10/06/16 12:00 66 10/06/16 12:00 98.1 75 21 132/79 97 T-piece 6.0 35 10/06/16 12:00 6.0 35 10/06/16 09:07 78 18 97 T-piece 10.0 35 10/06/16 09:00 72 18 96 T-piece 8.0 35 Intake and Output 10/06/16 10/07/16 19:00 07:00 Intake Total 870.000 ml 815 ml Output Total 400 ml 1000 ml Balance 470.000 ml -185 ml Free Water 115 ml 100 ml IV Total 275.000 ml 275 ml Tube Feeding 480 ml 440 ml Output Urine Total 400 ml 1000 ml # Bowel Movements 1 Objective GENERAL: The patient is a well-developed male, comfortable. NAD HEENT: Fairly negative. Pupils are sluggish, but reactive. NECK: Supple. Tracheostomy midline. LUNGS: Coarse breath sounds. some rhonchi noted. no wheeze CARDIAC: S1 and S2. Regular rate and rhythm. no murmurs or rubs. ABDOMEN: Soft and nontender. G-tube in place no HSM; no distention EXTREMITIES: No cyanosis or clubbing. There is no edema. NEUROLOGIC: Withdrawn. reviewed and edited comfortable Laboratory Tests 10/06/16 14:00: White Blood Count 14.1H, Red Blood Count 4.52L, Hemoglobin 13.6L, Hematocrit 41.7L, Mean Corpuscular Volume 92, Mean Corpuscular Hemoglobin 30.0, Mean Corpuscular Hemoglobin Concent 32.6, Red Cell Distribution Width 13.0, Platelet Count 417, Mean Platelet Volume 9.6, Neutrophils (%) (Auto) 57.6, Lymphocytes (% ) (Auto) 25.8, Monocytes (%) (Auto) 11.3H, Eosinophils (%) (Auto) 4.1H, Basophils (%) (Auto) 1.2 10/07/16 04:50: White Blood Count 14.8H, Red Blood Count 4.35L, Hemoglobin 13.2L, Hematocrit 40.3L, Mean Corpuscular Volume 93, Mean Corpuscular Hemoglobin 30.4, Mean Corpuscular Hemoglobin Concent 32.8, Red Cell Distribution Width 13.0, Platelet Count 418, Mean Platelet Volume 11.9H, Neutrophils (%) (Auto) 66.7, Lymphocytes (%) (Auto) 17.9L, Monocytes (%) (Auto) 9.6, Eosinophils (%) (Auto) 4.4H, Basophils (%) (Auto) 1.5, Sodium Level 138, Potassium Level 4.1, Chloride Level 100, Carbon Dioxide Level 29, Anion Gap 9, Blood Urea Nitrogen 14, Creatinine 0.6L, Estimat Glomerular Filtration Rate > 60, Glucose Level 147H, Calcium Level 9.0, Total Bilirubin 0.3, Aspartate Amino Transf (AST/SGOT) 32, Alanine Aminotransferase (ALT/SGPT) 48H, Alkaline Phosphatase 77, Total Protein 6.5L, Albumin 2.8L, Globulin 3.7, Albumin/Globulin Ratio 0.7L Current Medications Medications (Trade) Dose Ordered Sig/Magda Route PRN Reason Start Time Stop Time Status Last Admin Dose Admin Acetaminophen (Tylenol) 650 mg Q4H PRN GT Prn Headache/Temp > 101 10/04/16 11:00 11/03/16 10:59 Albuterol Sulfate (Proventil) 2.5 mg Q6H PRN HHN Shortness of Breath 10/04/16 11:00 10/09/16 10:59 Amikacin Sulfate (Amikin) 500 mg Q12HR@0900,2100 INH 10/04/16 12:00 10/11/16 11:59 10/06/16 20:58 Ascorbic Acid (Vitamin C) 500 mg DAILY GT 10/05/16 09:00 11/04/16 08:59 10/06/16 08:31 Bisacodyl (Dulcolax) 10 mg DAILYPRN PRN RECTAL Constipation 10/04/16 11:00 11/03/16 10:59 Calcium Carbonate (Tums) 500 mg DAILY GT 10/05/16 09:00 11/04/16 08:59 10/06/16 08:30 Clonidine HCl (Catapres) 0.1 mg Q6H PRN GT SBP>160 10/04/16 11:00 11/03/16 10:59 Finasteride (Proscar) 5 mg DAILY GT 10/05/16 09:00 11/04/16 08:59 10/06/16 08:31 Fluconazole (Diflucan) 100 mg DAILY ORAL 10/05/16 09:00 10/12/16 08:59 10/06/16 08:31 Heparin Sodium (Porcine) (Heparin 5000 units/ml) 5,000 units EVERY 12 HOURS SUBQ 10/04/16 21:00 11/03/16 20:59 10/06/16 21:49 Insulin Detemir (Levemir) 40 units Q12HR SUBQ 10/04/16 21:00 11/03/16 20:59 10/06/16 21:50 Lactobacillus Acidophilus (Culturelle) 1 tab TWICE A DAY ORAL 10/04/16 18:00 11/03/16 17:59 10/06/16 17:22 Magnesium Hydroxide (Mom) 30 ml DAILYPRN PRN GT Constipation 10/04/16 11:00 11/03/16 10:59 Metoprolol Tartrate (Lopressor) 25 mg EVERY 12 HOURS GT 10/04/16 21:00 11/03/16 20:59 10/06/16 21:46 Multivitamins (Multivitamins) 1 tab DAILY ORAL 10/05/16 09:00 11/04/16 08:59 10/06/16 08:31 Sitagliptin Phosphate (Januvia) 100 mg ACBREAKFAST GT 10/05/16 06:30 11/04/16 06:29 10/07/16 06:03 Sucralfate (Carafate) 1 gm FOUR TIMES A DAY GT 10/04/16 13:00 11/03/16 12:59 10/06/16 21:47 Tamsulosin HCl (Flomax) 0.4 mg DAILY GT 10/05/16 09:00 11/04/16 08:59 10/06/16 08:30 Vancomycin HCl (Vanco rx to dose) 1 ea DAILY PRN MISC . 10/05/16 09:00 11/04/16 08:59 Vancomycin HCl/ Dextrose (Vancomycin/D5W) 275 ml @ 183.333 mls/hr Q12HR@0200,1400 IVPB 10/04/16 14:00 10/09/16 13:59 10/07/16 02:21 JO-ANN SAUCEDO Oct 07, 2016 08:50
[2016-10-07] MEDS: Ascorbic Acid 500mg tab GT SCH (08:53)
[2016-10-07] MEDS: Tamsulosin 0.4mg cap GT SCH (08:53)
[2016-10-07] MEDS: Fluconazole 100mg tab ORAL SCH (08:54)
[2016-10-07] MEDS: Lactobacillus-GG tablet ORAL SCH (08:54)
[2016-10-07] MEDS: Tums 500mg GT SCH (08:54)
[2016-10-07] MEDS: Heparin 5000 units/ml inj SUBQ SCH (08:55)
[2016-10-07] MEDS: Levemir Flexpen SUBQ SCH (08:57)
[2016-10-07] MEDS: Sucralfate 1gm tab GT SCH ×2 (08:57→12:52)
[2016-10-07] MEDS: Metoprolol 25mg tab GT SCH (09:04)
[2016-10-07] MEDS: Amikacin for Inhalation 2ML INH SCH (09:20)
--- NOTE | 2016-10-07 11:32 | Infectious Diseases Prog Note ---
"Assessment/Plan Assessment/Plan antibiotics : vancomycin iv, fluconazole, inhaled amikacin A 1. pseudomonas | providencia pneumonia 2. MRSA | fungal UTI s/p rx 3. respiratory failure 4. leucocytosis improving 5. DM 6. HTN P 1. d/c iv vancomycin, fluconazole 2. continue inhaled amikacin 3 more days 3. will follow up cultures Subjective ROS Limited/Unobtainable: Yes Allergies: Coded Allergies: No Known Allergies (Unverified , 02/11/13) Objective Vital Signs Last 24 Hour Vital Signs Date Time Temp Pulse Resp B/P Pulse Ox O2 Delivery O2 Flow Rate FiO2 10/07/16 09:30 96 20 100 T-piece 8.0 35 10/07/16 09:25 94 20 97 T-piece 8.0 35 10/07/16 09:25 92 20 T-piece 8.0 35 10/07/16 09:04 78 145/84 10/07/16 08:00 76 10/07/16 08:00 6.0 35 10/07/16 08:00 98.4 96 21 145/84 96 T-piece 35 10/07/16 07:25 T-piece 8.0 35 10/07/16 07:25 96 T-piece 8.0 35 10/07/16 04:00 6.0 35 10/07/16 04:00 98.1 96 24 160/84 98 T-piece 10/07/16 04:00 62 10/07/16 01:15 T-piece 8.0 35 10/07/16 01:15 98 T-piece 8.0 35 10/07/16 00:00 97.4 67 24 129/81 96 T-piece 10/07/16 00:00 6.0 35 10/06/16 23:35 71 10/06/16 21:46 61 126/72 10/06/16 21:12 82 18 100 T-piece 10.0 35 10/06/16 20:57 73 18 99 T-piece 8.0 35 10/06/16 20:00 6.0 35 10/06/16 20:00 97.7 61 18 126/72 99 T-piece 10/06/16 19:21 T-piece 8.0 35 10/06/16 19:21 99 T-piece 8.0 35 10/06/16 19:10 62 18 T-piece 8.0 35 10/06/16 17:42 68 10/06/16 16:00 6.0 35 10/06/16 16:00 68 10/06/16 16:00 97.9 68 24 149/79 97 T-piece 6.0 35 10/06/16 12:30 97 T-piece 8.0 35 10/06/16 12:30 T-piece 8.0 35 10/06/16 12:00 66 10/06/16 12:00 98.1 75 21 132/79 97 T-piece 6.0 35 10/06/16 12:00 6.0 35 Height (Feet): 5 Height (Inches): 9.00 Weight (Pounds): 202 HEENT: status post trach Respiratory/Chest: lungs clear Cardiovascular: normal rate, regular rhythm, no gallop/murmur Abdomen: soft, non tender, other - GT Extremities: no edema, other - left arm PICC Laboratory Tests Test 10/06/16 14:00 10/07/16 04:50 White Blood Count 14.1 K/UL (4.8-10.8) H 14.8 K/UL (4.8-10.8) H Red Blood Count 4.52 M/UL (4.70-6.10) L 4.35 M/UL (4.70-6.10) L Hemoglobin 13.6 G/DL (14.2-18.0) L 13.2 G/DL (14.2-18.0) L Hematocrit 41.7 % (42.0-52.0) L 40.3 % (42.0-52.0) L Mean Corpuscular Volume 92 FL (80-99) 93 FL (80-99) Mean Corpuscular Hemoglobin 30.0 PG (27.0-31.0) 30.4 PG (27.0-31.0) Mean Corpuscular Hemoglobin Concent 32.6 G/DL (32.0-36.0) 32.8 G/DL (32.0-36.0) Red Cell Distribution Width 13.0 % (11.6-14.8) 13.0 % (11.6-14.8) Platelet Count 417 K/UL (150-450) 418 K/UL (150-450) Mean Platelet Volume 9.6 FL (6.5-10.1) 11.9 FL (6.5-10.1) H Neutrophils (%) (Auto) 57.6 % (45.0-75.0) 66.7 % (45.0-75.0) Lymphocytes (%) (Auto) 25.8 % (20.0-45.0) 17.9 % (20.0-45.0) L Monocytes (%) (Auto) 11.3 % (1.0-10.0) H 9.6 % (1.0-10.0) Eosinophils (%) (Auto) 4.1 % (0.0-3.0) H 4.4 % (0.0-3.0) H Basophils (%) (Auto) 1.2 % (0.0-2.0) 1.5 % (0.0-2.0) Sodium Level 138 mEQ/L (135-145) Potassium Level 4.1 mEQ/L (3.4-4.9) Chloride Level 100 mEQ/L (98-107) Carbon Dioxide Level 29 mEQ/L (20-30) Anion Gap 9 (5-15) Blood Urea Nitrogen 14 mg/dL (7-23) Creatinine 0.6 mg/dL (0.7-1.2) L Estimat Glomerular Filtration Rate > 60 mL/min (>60) Glucose Level 147 mg/dL (74-106) H Calcium Level 9.0 mg/dL (8.6-10.2) Total Bilirubin 0.3 mg/dL (0.0-1.2) Aspartate Amino Transf (AST/SGOT) 32 U/L (5-40) Alanine Aminotransferase (ALT/SGPT) 48 U/L (3-41) H Alkaline Phosphatase 77 U/L (40-129) Total Protein 6.5 g/dL (6.6-8.7) L Albumin 2.8 g/dL (3.5-5.2) L Globulin 3.7 g/dL Albumin/Globulin Ratio 0.7 (1.0-2.7) L JAMESON MANNING Oct 07, 2016 11:32"
[2016-10-07] MEDS ORDERED: AMIKIN500 MG/2 M INH (11:49)
[2016-10-07 12:00] VITALS: BP 134/88
[2016-10-07] MEDS ORDERED: Tubing IV Secondary IV ONE (13:24)
[2016-10-07] MEDS ORDERED: NS 275ml ONE (13:24)
[2016-10-07 16:00] VITALS: BP 149/83
[2016-10-07] MEDS ORDERED: Sterile Water Irrig 1000ml IRRIG ONE (16:42)
--- NOTE | 2016-10-07 18:32 | General Progress Note ---
Assessment/Plan Assessment/Plan Assessment - Resp failure - Azotemia - anemia - s/p PEG - TF tolerated well Recommendations - Elevate HOB - continue TF - doubt if G-->J wiil be of any benefit in this patient - OK for discharge from GI standpoint Subjective Allergies: Coded Allergies: No Known Allergies (Unverified , 02/11/13) Subjective Above noted no events overnight tolerating TF for discharge today Objective Last 24 Hour Vital Signs Date Time Temp Pulse Resp B/P Pulse Ox O2 Delivery O2 Flow Rate FiO2 10/07/16 16:00 98.1 68 20 149/83 95 T-piece 35 10/07/16 13:25 97 T-piece 8.0 35 10/07/16 13:25 T-piece 8.0 35 10/07/16 12:00 98.2 74 20 134/88 95 T-piece 35 10/07/16 12:00 76 10/07/16 12:00 6.0 35 10/07/16 09:30 96 20 100 T-piece 8.0 35 10/07/16 09:25 94 20 97 T-piece 8.0 35 10/07/16 09:25 92 20 T-piece 8.0 35 10/07/16 09:04 78 145/84 10/07/16 08:00 76 10/07/16 08:00 6.0 35 10/07/16 08:00 98.4 96 21 145/84 96 T-piece 35 10/07/16 07:25 T-piece 8.0 35 10/07/16 07:25 96 T-piece 8.0 35 10/07/16 04:00 6.0 35 10/07/16 04:00 98.1 96 24 160/84 98 T-piece 10/07/16 04:00 62 10/07/16 01:15 T-piece 8.0 35 10/07/16 01:15 98 T-piece 8.0 35 10/07/16 00:00 97.4 67 24 129/81 96 T-piece 10/07/16 00:00 6.0 35 10/06/16 23:35 71 10/06/16 21:46 61 126/72 10/06/16 21:12 82 18 100 T-piece 10.0 35 10/06/16 20:57 73 18 99 T-piece 8.0 35 10/06/16 20:00 6.0 35 10/06/16 20:00 97.7 61 18 126/72 99 T-piece 10/06/16 19:21 T-piece 8.0 35 10/06/16 19:21 99 T-piece 8.0 35 10/06/16 19:10 62 18 T-piece 8.0 35 Intake and Output 10/06/16 10/07/16 18:59 06:59 Intake Total 870.000 ml 855 ml Output Total 400 ml 1000 ml Balance 470.000 ml -145 ml Free Water 115 ml 100 ml IV Total 275.000 ml 275 ml Tube Feeding 480 ml 480 ml Output Urine Total 400 ml 1000 ml # Bowel Movements 1 Laboratory Tests 10/07/16 04:50: White Blood Count 14.8H, Red Blood Count 4.35L, Hemoglobin 13.2L, Hematocrit 40.3L, Mean Corpuscular Volume 93, Mean Corpuscular Hemoglobin 30.4, Mean Corpuscular Hemoglobin Concent 32.8, Red Cell Distribution Width 13.0, Platelet Count 418, Mean Platelet Volume 11.9H, Neutrophils (%) (Auto) 66.7, Lymphocytes (%) (Auto) 17.9L, Monocytes (%) (Auto) 9.6, Eosinophils (%) (Auto) 4.4H, Basophils (%) (Auto) 1.5, Sodium Level 138, Potassium Level 4.1, Chloride Level 100, Carbon Dioxide Level 29, Anion Gap 9, Blood Urea Nitrogen 14, Creatinine 0.6L, Estimat Glomerular Filtration Rate > 60, Glucose Level 147H, Calcium Level 9.0, Total Bilirubin 0.3, Aspartate Amino Transf (AST/SGOT) 32, Alanine Aminotransferase (ALT/SGPT) 48H, Alkaline Phosphatase 77, Total Protein 6.5L, Albumin 2.8L, Globulin 3.7, Albumin/Globulin Ratio 0.7L Height (Feet): 5 Height (Inches): 9.00 Weight (Pounds): 202 Objective WDWN WM NCAT supple, (+) trach Coarse BS RRR Soft obese (+) GT, (+) midline supraumbilical hernia no edema ELLIE GÓMEZ Oct 07, 2016 18:32
--- NOTE | 2016-10-08 00:48 | Discharge Summary ---
DATE OF ADMISSION: 09/29/2016 DATE OF DISCHARGE: 10/07/2016 ADMISSION DIAGNOSES: 1. Pneumonia. 2. Sepsis. 3. Respiratory failure. 4. History of encephalopathy. 5. Stroke. 6. Diabetes. 7. Hypertension. 8. History of benign prostate hypertrophy. DISCHARGE DIAGNOSES: 1. Pneumonia. 2. Sepsis. 3. Respiratory failure. 4. History of encephalopathy. 5. Stroke. 6. Diabetes. 7. Hypertension. 8. History of benign prostate hypertrophy. HOSPITAL STAY: This is a 66-year-old male with similar complaints of sepsis secondary to pneumonia. He received broad-spectrum IV antibiotics. He initially had improved, but later developed leukocytosis again with some fevers and congestion. was stopped off feedings to see if his congestion improved because of concerns about possible microaspiration. Congestion is improved mildly, but when started back on feeds there is no significant difference. The potential for possible aspiration was discussed with the family who for now would like to monitor for further signs and symptoms of aspiration before proceeding with a possible J-tube. On discharge, the patient was well to be discharged on inhaled amikacin for additional 4 more days. DISCHARGE MEDICATIONS: Please see discharge medication list for discharge medications. DIET: G-tube feeding. ACTIVITY: Ad-staci. FOLLOWUP: The patient will follow up in one [facility] at the [facility]. Jeremiah Perkins M.D. DR: Brad JOB#: [id number] CC:
== END 2016-10-07 17:16 | DRG 871 ==
LOC: ENRESERVDT → ENRESERVTM → EDBD 17:42 → EMR 18:10 → 2E 18:11 → EDBEDREQ 20:05 → 2E 21:25 → 2W 10-04 10:00
PROC: 02H633Z Insertion of Infusion Device into Right Atrium, Percutaneous Approach (ICD-10-PCS; principal; 2016-10-05)
DX: A41.9 Sepsis, unspecified organism (principal); J15.1 Pneumonia due to Pseudomonas; J15.6 Pneumonia due to other Gram-negative bacteria; G93.49 Other encephalopathy; J18.9 Pneumonia, unspecified organism; I11.0 Hypertensive heart disease with heart failure; J96.11 Chronic respiratory failure with hypoxia; E44.0 Moderate protein-calorie malnutrition; I50.32 Chronic diastolic (congestive) heart failure; G82.20 Paraplegia, unspecified; Z43.1 Encounter for attention to gastrostomy; M62.82 Rhabdomyolysis; B37.49 Other urogenital candidiasis; Z43.0 Encounter for attention to tracheostomy; Z86.73 Personal history of transient ischemic attack (TIA), and cerebral infarction without residual deficits; I10 Essential (primary) hypertension; N40.1 Benign prostatic hyperplasia with lower urinary tract symptoms; R33.8 Other retention of urine; R00.0 Tachycardia, unspecified; J44.9 Chronic obstructive pulmonary disease, unspecified; G40.909 Epilepsy, unspecified, not intractable, without status epilepticus; E86.0 Dehydration; E86.1 Hypovolemia; Z79.4 Long term (current) use of insulin; E11.65 Type 2 diabetes mellitus with hyperglycemia; I69.320 Aphasia following cerebral infarction; B95.62 Methicillin resistant Staphylococcus aureus infection as the cause of diseases classified elsewhere
CPT/HCPCS: 36415; 36569; 36600; 71010; 74000; 76937; 80053; 80202; 81003; 82550; 82553; 82803; 82962; 83605; 83735; 83880; 84484; 85025; 87040; 87070; 87086; 87181; 87205; 93005; 94640; 94664; 94760; S5561

== ENCOUNTER 2018-08-10 08:44 | Inpatient (IN) | payer MEDICARE, OTHER ==
[~2018-08-10] VITALS: Ht 170.2 cm; Wt 39.2 kg
[~2018-08-10 08:44] MED LIST changes: +AMIKIN500 MG/2 M INH; +JANUVIA25 MG GT
[2018-08-10 08:45] VITALS: BP 93/52
--- NOTE | 2018-08-10 08:45 | NUR ---
ED Nurse Note: PT BROUGHT IN BY R34 FROM [facility]. PER EMS, PT'S STATES PT HAS BEEN SOB X 3 DAYS. PT HAS TRACH IN PLACE. PT PLACED ON 10L BY EMS PRIOR TO ARRIVAL. CRACKLES AUSCULTATED ON ASSESSMENT. RT AT BEDSIDE. SUCTIONING PROVIDED FOR PT. SCANT AMOUNT OF SECRETIONS SUCTIONED. O2 SATURATION 96% WITH O2 REDUCED TO 3L. PT IS TACHYCARDIC, HR: 114 WITH RECTAL TEMP: 103.8F. AWARE. OF NOTE, PT PRESENTS WITH MATHIS CATHETER DRAINING CLOUDY YELLOW URINE. PT ALSO HAS A CLAMPED GTUBE TO UPPER LEFT ABDOMEN. SOME REDNESS NOTED TO COCCYX AREA. PT CONTRACTED IN UPPER AND LOWER EXTREMITIES.
[2018-08-10] MEDS ORDERED: AMLODIPINE BESYL5 MG GT (08:53)
[2018-08-10] MEDS ORDERED: DOCUSATE SODIU100 MG GT (08:53)
[2018-08-10] MEDS ORDERED: SUCRALFATE1 GM GT (08:53)
[2018-08-10] MEDS ORDERED: HIBICLENS118 ML TP (08:53)
[2018-08-10] MEDS ORDERED: DULCOLAX10 MG RC (08:54)
[2018-08-10] MEDS ORDERED: FLORASTOR250 MG GT ×2 (08:54→09:35)
--- NOTE | 2018-08-10 09:09 | NUR ---
RESPIRATORY NOTE: pt arrived in ED, trached with cuffless portex 7, on t-piece. pt came in on o2 at 5L with saturation of 95-98%, turned down to 3L. small amounts of secretion upon sxn; pale-yellow in color. no redness or skin tears around stoma. leak is audible around stoma.
[2018-08-10] MEDS ORDERED: Acetaminophen 650 MG SUPP RECTAL ONE (09:15)
--- NOTE | 2018-08-10 09:19 | NUR ---
ED Nurse Note: XRAY AT BEDSIDE
[2018-08-10 09:28] LABS: APPEARANCE,URINE VERY CLOUDY; BILIRUBIN, URINE NEGATIVE (NEGATIVE); COLOR,URINE PALE YELLOW; GLUCOSE, URINE (UA) NEGATIVE (NEGATIVE); KETONES,URINE NEGATIVE (NEGATIVE); LEUKOCYTE ESTERASE ,URINE 3+ (NEGATIVE); NITRITE,URINE NEGATIVE (NEGATIVE); PH,URINE 9 (4.5-8.0); PROTEIN,URINE 3+ (NEGATIVE); UROBILINOGEN,URINE NORMAL MG/DL (0.0-1.0)
[2018-08-10 09:32] LABS: HEMATOCRIT 38.4 % (42.0-52.0); HEMOGLOBIN 12.3 G/DL (14.2-18.0); MEAN CORPUSCULAR VOLUME 90 FL (80-99); PLATELET COUNT 257 K/UL (150-450); RED BLOOD COUNT 4.27 M/UL (4.70-6.10); RED CELL DISTRIBUTION WIDTH 14.1 % (11.6-14.8)
[2018-08-10 09:33] LABS: WHITE BLOOD COUNT 33.7 K/UL (4.8-10.8)
[2018-08-10] MEDS ORDERED: HYDRALAZINE HCL50 MG GT (09:35)
[2018-08-10] MEDS ORDERED: LEVEMIR100 UNIT/1 SUBQ (09:35)
[2018-08-10] MEDS ORDERED: TRADJENTA5 MG GT (09:38)
[2018-08-10] MEDS ORDERED: NOVOLOG100 UNIT/4 SQ (09:38)
[2018-08-10] MEDS ORDERED: UTI-STAT L3875 MG/31 GT (09:38)
[2018-08-10] MEDS ORDERED: PROSCAR5 MG GT (09:38)
[2018-08-10] MEDS ORDERED: MILK OF MA2400 MG/10 GT (09:38)
[2018-08-10 09:43] LABS: ANION GAP 13 mmol/L (5-15); BLOOD UREA NITROGEN 29 mg/dL (7-18); CALCIUM 8.9 MG/DL (8.5-10.1); CARBON DIOXIDE 24 MMOL/L (21-32); CHLORIDE 96 MMOL/L (98-107); CREATININE 1.2 MG/DL (0.55-1.30); POTASSIUM 5.3 MMOL/L (3.5-5.1); SODIUM 133 MMOL/L (136-145)
--- NOTE | 2018-08-10 09:48 | Emergency Room Report ---
History of Present Illness General Chief Complaint: Dyspnea/Respdistress Source: Family Member, Medical Record Present Illness HPI 68-year-old male presents ED for evaluation. Brought in by EMS for congestion and shortness of breath 1 day. Has trach. Noted a thick secretions by nursing staff at shelter facility. Patient is nonverbal at baseline. Febrile on evaluation. No signs of distress. No other aggravating relieving factors. No other associated symptoms Allergies: Coded Allergies: No Known Allergies (Unverified , 02/11/13) Patient History Past Medical History: DM, COPD, other - encephalopathy Past Surgical History: other - trach Pertinent Family History: none Social History: Denies: smoking, alcohol use, drug use Immunizations: UTD Reviewed Nursing Documentation: PMH: Agreed; PSxH: Agreed Nursing Documentation-PMH Past Medical History: No History, Except For Hx Cardiac Problems: Yes Hx Hypertension: Yes - RESP FAILURE, PNEUMONIA Hx Pacemaker: No Hx Asthma: No Hx COPD: Yes Hx Diabetes: Yes - TYPE 2, UTI, PARAPLEGIA Hx Cancer: No Hx Gastrointestinal Problems: Yes - G-tube Hx Dialysis: No Hx Neurological Problems: Yes - Paraplegia, Encephalopathy Hx Cerebrovascular Accident: Yes Hx Dementia: Yes Hx Seizures: Yes Hx Epilepsy: Yes Hx Paralysis: Yes - quadriplegic Hx Aphasia: Yes Hx Neurologic Surgery: No Hx Brain Shunt: No Review of Systems All Other Systems: limited Physical Exam Vital Signs Date Time Temp Pulse Resp B/P (MAP) Pulse Ox O2 Delivery O2 Flow Rate FiO2 08/10/18 08:43 99.3 140 30 103/72 94 T-piece 10.0 08/10/18 09:08 32 Sp02 EP Interpretation: reviewed, normal General Appearance: no apparent distress, GCS 15, non-toxic, other - nonverbal Head: normocephalic Eyes: bilateral eye normal inspection, bilateral eye PERRL ENT: hearing grossly normal, normal pharynx, no angioedema, normal voice Neck: tracheotomy Respiratory: crackles Cardiovascular #1: regular rate, rhythm, no edema Gastrointestinal: normal inspection, other - Gtube Rectal: deferred Genitourinary: no CVA tenderness Musculoskeletal: normal inspection Neurologic: other - nonverbal Psychiatric: other - nonverbal Skin: normal inspection Lymphatic: normal inspection Medical Decision Making Diagnostic Impression: Primary Impression: Severe sepsis Additional Impressions: UTI (urinary tract infection) Qualified Codes: N39.0 - Urinary tract infection, site not specified Respiratory failure, chronic Qualified Codes: J96.10 - Chronic respiratory failure, unspecified whether with hypoxia or hypercapnia Pneumonia Qualified Codes: J18.9 - Pneumonia, unspecified organism ER Course Hospital Course 68 yo M presents with SOB, fever Differential diagnoses include: Pneumonia, CHF exacerbation, pneumothorax, fluid overload Clinical course Patient placed on stretcher. 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 After initial history and physical, I ordered tylenol. I ordered labs, IV fluids, EKG, chest x-ray, blood cultures, UA. Labs - marked leukocytosis, hemoglobin/hematocrit stable, electrolytes ok, lactic > 6, UA + bacteria EKG - sinus tachycardia, no acute ischemic changes interpreted by me CXR - interstitial congestion, ? PNA Given 30 mL per KG fluid bolus. Given antibiotics Case discussed with Dr. Perkins and he agreed to the patient to his service for further care and support I feel this is a highly complex case requiring extensive working including EKG/ Rhythm strip, Xray/CT/US, Blood/urine lab work, repeat exams while in ED, and administration of strong opiates/narcotics for pain control, admission to hospital or close patient follow up. Diagnosis - pneumonia, severe sepsis, UTI, repiratory failure chronic Patient admitted to telemetry in serious condition Labs Test 08/10/18 09:06 08/10/18 11:56 White Blood Count 33.7 K/UL (4.8-10.8) Red Blood Count 4.27 M/UL (4.70-6.10) Hemoglobin 12.3 G/DL (14.2-18.0) Hematocrit 38.4 % (42.0-52.0) Mean Corpuscular Volume 90 FL (80-99) Mean Corpuscular Hemoglobin 28.9 PG (27.0-31.0) Mean Corpuscular Hemoglobin Concent 32.1 G/DL (32.0-36.0) Red Cell Distribution Width 14.1 % (11.6-14.8) Platelet Count 257 K/UL (150-450) Mean Platelet Volume 11.5 FL (6.5-10.1) Neutrophils (%) (Auto) % (45.0-75.0) Lymphocytes (%) (Auto) % (20.0-45.0) Monocytes (%) (Auto) % (1.0-10.0) Eosinophils (%) (Auto) % (0.0-3.0) Basophils (%) (Auto) % (0.0-2.0) Differential Total Cells Counted 100 Neutrophils % (Manual) 91 % (45-75) Lymphocytes % (Manual) 2 % (20-45) Monocytes % (Manual) 1 % (1-10) Eosinophils % (Manual) 0 % (0-3) Basophils % (Manual) 0 % (0-2) Band Neutrophils 6 % (0-8) Platelet Estimate Adequate Platelet Morphology Normal Urine Color Pale yellow Urine Appearance Very cloudy Urine pH 9 (4.5-8.0) Urine Specific [place] 1.015 (1.005-1.035) Urine Protein 3+ (NEGATIVE) Urine Glucose (UA) Negative (NEGATIVE) Urine Ketones Negative (NEGATIVE) Urine Blood 5+ (NEGATIVE) Urine Nitrite Negative (NEGATIVE) Urine Bilirubin Negative (NEGATIVE) Urine Urobilinogen Normal MG/DL (0.0-1.0) Urine Leukocyte Esterase 3+ (NEGATIVE) Urine RBC 10-15 /HPF (0 - 0) Urine WBC 20-30 /HPF (0 - 0) Urine Squamous Epithelial Cells Few /LPF (NONE/OCC) Urine Bacteria Many /HPF (NONE) Sodium Level 133 MMOL/L (136-145) Potassium Level 5.3 MMOL/L (3.5-5.1) Chloride Level 96 MMOL/L (98-107) Carbon Dioxide Level 24 MMOL/L (21-32) Anion Gap 13 mmol/L (5-15) Blood Urea Nitrogen 29 mg/dL (7-18) Creatinine 1.2 MG/DL (0.55-1.30) Estimat Glomerular Filtration Rate > 60 mL/min (>60) Glucose Level 155 MG/DL (74-106) Lactic Acid Level 6.50 mmol/L (0.4-2.0) 2.00 mmol/L (0.66-2.22) Calcium Level 8.9 MG/DL (8.5-10.1) Total Bilirubin 0.7 MG/DL (0.2-1.0) Aspartate Amino Transf (AST/SGOT) 35 U/L (15-37) Alanine Aminotransferase (ALT/SGPT) 21 U/L (12-78) Alkaline Phosphatase 125 U/L (46-116) Total Creatine Kinase 328 U/L (26-308) Creatine Kinase MB 2.1 NG/ML (0.0-3.6) Creatine Kinase MB Relative Index 0.6 Troponin I 0.007 ng/mL (0.000-0.056) Pro-B-Type Natriuretic Peptide 590 pg/mL (0-125) Total Protein 7.5 G/DL (6.4-8.2) Albumin 2.5 G/DL (3.4-5.0) Globulin 5.0 g/dL Albumin/Globulin Ratio 0.5 (1.0-2.7) EKG Diagnostic Results Rate: tachycardiac Rhythm: NSR ST Segments: no acute changes ASA given to the pt in ED: No Rhythm Strip Diag. Results EP Interpretation: yes Rhythm: NSR, no PVC's, no ectopy Chest X-Ray Diagnostic Results Chest X-Ray Diagnostic Results : Chest X-Ray Ordered: Yes # of Views/Limited/Complete: 1 View Indication: Shortness of Breath EP Interpretation: Yes Interpretation: no pneumothorax, other - interstitial congestion Impression: Other - chf/pna Electronically Signed by: Electronically signed by Eliot Grimm MD Last Vital Signs Date Time Temp Pulse Resp B/P (MAP) Pulse Ox O2 Delivery O2 Flow Rate FiO2 08/10/18 09:08 T-piece 3.0 32 08/10/18 09:08 97 08/10/18 08:45 103.8 114 36 93/52 Status: improved Disposition: ADMITTED INPATIENT Condition: Serious Referrals: Jeremiah Perkins MD (PCP) Eliot Grimm MD Aug 10, 2018 09:48
[2018-08-10 09:57] LABS: ALANINE AMINOTRANSFERASE 21 U/L (12-78); ALBUMIN 2.5 G/DL (3.4-5.0); ALBUMIN/GLOBULIN RATIO 0.5 (1.0-2.7); ALKALINE PHOSPHATASE 125 U/L (46-116); ASPARTATE AMINO TRANSFERASE 35 U/L (15-37); BILIRUBIN,TOTAL 0.7 MG/DL (0.2-1.0); CKMB 2.1 NG/ML (0.0-3.6); CREATINE KINASE 328 U/L (26-308)
--- NOTE | 2018-08-10 10:05 | NUR ---
ED Nurse Note: RECTAL TEMP: 102.7F. DR. Cuco العلي.
[2018-08-10] MEDS ORDERED: Piperacillin/Tazobactam 3.375 GM in NS 110 ML IVPB ONE (10:30)
[2018-08-10] MEDS ORDERED: Azithromycin 500 MG in NS 275 ML IV ONE (10:30)
[2018-08-10 10:48] VITALS: BP 97/58
[2018-08-10 11:32] VITALS: BP 119/59
--- NOTE | 2018-08-10 11:55 | NUR ---
ED Nurse Note: LACTIC REFLEX SENT TO LAB
--- NOTE | 2018-08-10 12:07 | Diagnostic Imaging Report ---
Indication: Cough, shortness of breath Technique: One view of the chest Comparison: 10/03/2016 Findings: The right hemidiaphragm is elevated. There is interstitial and airspace edema, apparently on the left. Tracheostomy remains. Impression: Interstitial and airspace edema, left greater than right
[2018-08-10 12:47] VITALS: BP 103/56
--- NOTE | 2018-08-10 12:52 | NUR ---
ED Nurse Note: RECTAL TEMP: 98.8F.
--- NOTE | 2018-08-10 15:37 | NUR ---
ED Nurse Note: TELE UNIT CALLED FOR PT TRANSFER. REPORT GIVEN TO DAVID SAUCEDO. PT TAKEN UP TO TELE UNIT ON [facility] WITH ALL BELONGINGS ACCOMPANIED BY DAVID CRAVEN AND EMT.
[2018-08-10 16:00] VITALS: BP 117/65
[2018-08-10] MEDS ORDERED: Albuterol ud Inhalation HHN PRN (17:00)
[2018-08-10] MEDS ORDERED: Acetaminophen 650mg/20.3ml GT PRN (17:00)
[2018-08-10] MEDS ORDERED: Milk of Magnesia 30ml Ud GT PRN (17:00)
[2018-08-10] MEDS: Sucralfate 1gm tab GT SCH ×2 (18:39→22:29)
--- NOTE | 2018-08-10 19:42 | NUR ---
HAND-OFF: Report given to Efrem christianson.
--- NOTE | 2018-08-10 19:50 | NUR ---
CASE MANAGEMENT: REVIEW 68/M CYRILA FROM [facility] CC: FLU LIKE SYMPTOMS SI: RESP DISTRESS . SEVERE SEPSIS T 103.8 HR 140 RR 36 BP 93/52 SAT 94% T-PIECE FIO2 FIO2 32 WBC 33.7 H/H 12.3/38.4 NA 133 K 5.3 UA: WBC 20-30 MANY H IS: NS IVF BOLUS X1 TYLENOL RECTAL X1 AZITHROMYCIN IV X1 ZOSYN IV X1 PATIENT ADMITTED TO TELEMETRY UNIT 08/10/2018 DCP: PATIENT IS FROM [facility]
[2018-08-10 20:00] VITALS: BP 127/72
[2018-08-10] MEDS ORDERED: Amikacin 500mg/2mL Inj INH SCH (21:00)
[2018-08-10] MEDS: Doxazosin 1mg Tab GT SCH (22:29)
[2018-08-10] MEDS: Piperacillin/Tazobactam 3.375 GM in D5W 110 ML IVPB SCH (22:29)
[2018-08-10] MEDS: HydrALAZINE 50mg tab GT SCH (22:35)
[2018-08-10] MEDS: Metoprolol 25mg tab GT SCH (22:35)
[2018-08-10] MEDS: Heparin 5000 units/ml inj SUBQ SCH (22:55)
[2018-08-11] VITALS: BP 123/63
--- NOTE | 2018-08-11 03:30 | Consultation ---
DATE OF CONSULTATION: 08/10/2018 CARDIOLOGY CONSULTATION CONSULTING PHYSICIAN: Brady Burks M.D. REQUESTING PHYSICIAN: Jeremiah Perkins M.D. REASON FOR CONSULTATION: Evaluation for shortness of breath. HISTORY OF PRESENT ILLNESS: This is an unfortunate 68-year-old male, who resides at a subacute facility and has a tracheostomy. He has several days of congestion, shortness of breath, and increasing secretions. He was febrile in the emergency room and had a significant leukocytosis. He was diagnosed with a new infection and sepsis, but also was noted to have abnormalities suggesting a cardiovascular contribution to his shortness of breath. As such, I have been asked to assist with cardiovascular care. PAST MEDICAL HISTORY: Respiratory failure, tracheostomy, cerebrovascular disease with chronic encephalopathy, COPD, diabetes mellitus, atherosclerotic cardiovascular disease, hypertensive heart disease, paraplegia, dysphagia, gastrostomy tube, and seizure disorder. ALLERGIES: None. FAMILY HISTORY: Not known. SOCIAL HISTORY: Not obtainable. REVIEW OF SYSTEMS: Cannot be obtained. Pertinent data from prior records as outlined above. PHYSICAL EXAMINATION: VITAL SIGNS: Temperature is 99.3, blood pressure 103/72, pulse rate 140, and respiratory rate 30. HEENT: Temporal wasting. Pale conjunctivae. Dry mucous membranes. Trach site with thick secretions. LUNGS: With coarse breath sounds, rhonchi, and few rales. CARDIAC: Regular rhythm. Rapid rate. Normal S1 and S2 with a fourth heart sound. ABDOMEN: Soft and nontender. G-tube intact. EXTREMITIES: With contractures and no edema. Decreased capillary refill. LABORATORY AND DIAGNOSTIC DATA: Chest x-ray reveals bilateral interstitial infiltrates versus edema. Chest EKG, sinus tachycardia with no acute abnormalities. Sodium 133, potassium 5.3, chloride 96, bicarbonate 24, BUN 29, creatinine 1.2, and glucose 155. Lactic acid 6.5, repeated 2.0. Troponin 0.007. Pro-natriuretic peptide 590. Albumin 2.5. White count 33,000. Urinalysis, 20 to 30 white cells. Hemoglobin 12.3. IMPRESSION: 1. Sepsis. 2. Healthcare-acquired pneumonia. 3. Respiratory failure. 4. Acute on chronic diastolic congestive heart failure. 5. Secondary sinus tachycardia. 6. Probable acute myocardial ischemia. 7. Lactic acidosis. 8. Cerebrovascular disease with chronic encephalopathy. 9. Type 2 diabetes mellitus with complications. 10. History of COPD. 11. Hyperkalemia. 12. Hyponatremia. PLAN: 1. Panculture. 2. Broad-spectrum antibiotics. 3. Bronchodilators. 4. Respiratory hygiene. 5. Trach care. 6. Saline hydration. 7. Followup lab studies. 8. No diuretics. 9. Cardiac monitoring. 10. Metabolic profile including B12, folate, and thyroid function. 11. Stress ulcer and DVT prophylaxis. 12. We will follow further recommendations based on clinical progress and new clinical parameters. 13. Hold antihypertensive regimen for now until euvolemic. Brady Burks M.D. DR: DEA JOB#: [id number] CC:
[2018-08-11 04:00] VITALS: BP 111/66
[2018-08-11] MEDS: Piperacillin/Tazobactam 3.375 GM in D5W 110 ML IVPB SCH ×3 (06:33→21:42)
[2018-08-11] MEDS: HydrALAZINE 50mg tab GT SCH ×3 (06:33→21:37)
--- NOTE | 2018-08-11 07:30 | NUR ---
HAND-OFF: Report given to DAVID Corcoran.
--- NOTE | 2018-08-11 07:58 | NUR ---
NURSE NOTES: received patient report from uriel christianson. patient is on bed asleep. non verbal with tpiece @30%. not in acute distress.NSR on the monitor. will continue to monitor.
[2018-08-11 08:00] VITALS: BP 115/68
--- NOTE | 2018-08-11 08:30 | History and Physical Report ---
DATE OF ADMISSION: 08/10/2018 CHIEF COMPLAINT: Sepsis, history of anoxic encephalopathy, stroke, diabetes. HISTORY OF PRESENT ILLNESS: The patient is an unfortunate 68-year-old male. He has a history of encephalopathy, stroke, diabetes, hypertension, and chronic leukocytosis. He has a history of BPH and urinary retention. He was transferred from a group home facility with complaints of congestion, fever, chills, and shortness of breath. On evaluation in the emergency room, the patient was diagnosed with pneumonia. He had a white count of 33,000 and elevated lactic acid level of 6.5. The patient was pancultured. Broad-spectrum IV antibiotics have been instituted. The patient is now admitted for further evaluation and care. PAST MEDICAL HISTORY: Significant for history of chronic respiratory failure, status post tracheostomy. CURRENT MEDICATIONS: Reconciled and reviewed. ALLERGIES: None. FAMILY HISTORY: None. SOCIAL HISTORY: There is no known history of tobacco, ethanol, or drugs. The patient is a Full Code. REVIEW OF SYSTEMS: From the patient is unobtainable as he is nonverbal at baseline. PHYSICAL EXAMINATION: VITAL SIGNS: Initial temperature was 103.8, pulse 114, respirations 36, blood pressure 93/52. GENERAL: The patient is a well-developed, chronic ill-appearing male, in no apparent distress. He is poorly responsive at baseline. NECK: Supple. Trach was midline and clean. HEART: Regular rate and rhythm. LUNGS: Significant scattered rhonchi. ABDOMEN: Soft, nontender, nondistended. EXTREMITIES: Without clubbing, cyanosis, or edema. LABORATORY DATA: Showed bibasilar patchy infiltrates. White count 33, hemoglobin 12, platelets 257. Sodium 133, potassium 5.3, chloride 96, bicarb 24, BUN 29, creatinine 1.2. Lactic acid level 6.5. UA showed 20 to 30 wbc's. ASSESSMENT: This is an unfortunate elderly male with a history of encephalopathy, stroke, diabetes, chronic respiratory failure, BPH admitted with complaints of sepsis secondary to pneumonia, urinary tract infection. PLAN: IV antibiotics. Follow up cultures. Cardiology, ID, Pulmonary consultation will be obtained. We will continue G-tube feeds. We will continue current cardiac and diabetic regimen. Jeremiah Perkins M.D. DR: MIGUEL JOB#: [id number] CC:
[2018-08-11] MEDS: Tamsulosin 0.4mg cap ORAL SCH (09:00)
[2018-08-11] MEDS ORDERED: Docusate 100mg cap ORAL SCH (09:00)
[2018-08-11 09:51] LABS: HEMOGLOBIN 10.5 G/DL (14.2-18.0); MEAN CORPUSCULAR VOLUME 89 FL (80-99); PLATELET COUNT 276 K/UL (150-450); RED CELL DISTRIBUTION WIDTH 14.3 % (11.6-14.8); WHITE BLOOD COUNT 20.3 K/UL (4.8-10.8)
[2018-08-11 09:55] LABS: ALANINE AMINOTRANSFERASE 18 U/L (12-78); ALBUMIN/GLOBULIN RATIO 0.5 (1.0-2.7); ALKALINE PHOSPHATASE 83 U/L (46-116); ANION GAP 7 mmol/L (5-15); ASPARTATE AMINO TRANSFERASE 32 U/L (15-37); BILIRUBIN,TOTAL 0.3 MG/DL (0.2-1.0); BLOOD UREA NITROGEN 22 mg/dL (7-18); CALCIUM 8.2 MG/DL (8.5-10.1); CARBON DIOXIDE 27 MMOL/L (21-32); CHLORIDE 106 MMOL/L (98-107); CREATININE 0.9 MG/DL (0.55-1.30); POTASSIUM 3.9 MMOL/L (3.5-5.1); SODIUM 140 MMOL/L (136-145)
[2018-08-11] MEDS: Sucralfate 1gm tab GT SCH ×4 (10:05→21:41)
[2018-08-11] MEDS: Tums 500mg GT SCH (10:05)
[2018-08-11] MEDS: Ascorbic Acid 500mg tab GT SCH (10:06)
[2018-08-11] MEDS: sitaGLIPtin 25mg tab GT SCH (10:06)
[2018-08-11] MEDS: Metoprolol 25mg tab GT SCH ×2 (10:06→21:38)
[2018-08-11] MEDS: Heparin 5000 units/ml inj SUBQ SCH ×2 (10:08→21:41)
--- NOTE | 2018-08-11 10:13 | NUR ---
NURSE NOTES: left a message to dr de la vega regarding flomax and proscar. per pharmacy these 2 medications cannot be crush and cannot be given thru gtube. awaiting callback and new orders for alternate meds.
[2018-08-11] MEDS: Amikacin for Inhalation 2ML INH SCH ×2 (11:11→19:41)
[2018-08-11 12:00] VITALS: BP 118/71
[2018-08-11 16:00] VITALS: BP 122/73
--- NOTE | 2018-08-11 19:07 | NUR ---
NURSE NOTES: left a message to dr vaughn that patient is positive for gram (-) rods. awaiting callback and new orders.
--- NOTE | 2018-08-11 19:52 | NUR ---
HAND-OFF: Report given to uriel christianson.
--- NOTE | 2018-08-11 19:53 | NUR ---
NURSE NOTES: Received report from DAVID Corcoran. Pt is resting in bed. In no acute distress. Pt is on T-Piece @ 30% FiO2. F/C intact and draining. G-Tube intact. Bed in lowest position, call light within reach. Family is at bedside. Will continue plan of care.
[2018-08-11 20:00] VITALS: BP 137/72
--- NOTE | 2018-08-11 20:00 | Consultation ---
DATE OF CONSULTATION: 08/11/2018 PULMONARY CONSULTATION CONSULTING PHYSICIAN: Silver Diaz M.D. REASON FOR CONSULTATION: Respiratory failure, tracheostomy care. HISTORY: This is a 68-year-old male, well known to me, noted to have fever, tachycardia with possible sepsis. The patient was seen in the emergency room and was brought in by 911. The patient with elevated lactic acid, elevated white cell count, and subsequently was started on IV antibiotics. The patient is admitted. Unable to give any history. The patient is chronically withdrawn and nonverbal. The care was discussed and reviewed. The ER notes were reviewed. History and physical reviewed. The patient is well known to me from the subacute facility. The patient's care and findings as well reviewed in detail. PAST MEDICAL HISTORY: Notable for history of encephalopathy chronic, stroke, diabetes, hypertension, chronic leukocytosis due to urinary retention, history of tracheostomy, history of G-tube. MEDICATIONS: Reviewed. ALLERGIES: Reviewed. SURGICAL HISTORY: Notable for tracheostomy and G-tube. FAMILY HISTORY: Noncontributory. SOCIAL HISTORY: care home patient, fully dependent. REVIEW OF SYSTEMS: Unobtainable. PHYSICAL EXAMINATION: GENERAL: Ill-appearing male, currently without distress. The patient withdrawn, nonverbal. VITAL SIGNS: Blood pressure 118/65, heart rate 99, respiratory rate 20, oxygen saturation 98%. HEENT: Negative. NECK: Supple. Tracheostomy is in midline. Carotids 2+. LUNGS: With scattered rhonchi. Moderate air entry. CARDIAC: S1, S2. Regular rate and rhythm without murmurs, rubs, or gallops. ABDOMEN: Soft, nontender. G-tube in place. No distention. EXTREMITIES: No cyanosis or clubbing. No edema. Decreased range of motion. NEUROLOGIC: Poor response to pain. SKIN: Noted. LABORATORY AND DIAGNOSTIC DATA: Reviewed. White count 33.7 and now 20, hemoglobin 10, hematocrit 32, platelets normal. Chemistries noted and reviewed. BUN 22, albumin is 2. Other electrolytes appeared to be fairly normal. The patient's x-ray reviewed with evidence of possible interstitial changes, left greater than right. IMPRESSION: Respiratory failure, possible atypical pneumonia; leukocytosis, probable sepsis; acute renal failure, now improving; severe protein-calorie malnutrition; trach; G-tube; urinary retention; history of CVA. RECOMMENDATION: Broad-spectrum antibiotics. Respiratory care. Suction as needed. Aspiration precaution. Resume feeding and medications. Hydration with caution. Cardiology evaluation. Blood pressure support. DVT prophylaxis and close followup and recommendations. I will follow for assisting with discharge planning and any other respiratory needs this patient requires. Silver Diaz M.D. DR: Fausto JOB#: [id number] CC:
[2018-08-11] MEDS: Doxazosin 1mg Tab GT SCH (21:38)
[2018-08-12] VITALS: BP 121/68
--- NOTE | 2018-08-12 03:00 | Progress Note ---
DATE: 08/11/2018 CARDIOLOGY PROGRESS NOTE SUBJECTIVE: The patient remains withdrawn and lethargic. Blood pressure parameters have improved. He remains on IV fluids. PHYSICAL EXAMINATION: VITAL SIGNS: Blood pressure 118/65, pulse 100, respiratory rate 20, and afebrile. He is on a T-piece, T-max 99. LUNGS: Coarse breath sounds. Thick secretions. CARDIOVASCULAR: Regular rhythm and rate. Normal S1 and S2. ABDOMEN: Soft. G-tube intact. EXTREMITIES: Trace edema. LABORATORY DATA: White count down from 33.7 to 20 and hemoglobin 10.5. Sodium 140 and potassium 3.9. Lactic acid is normalized. BUN 22 and creatinine 0.9. Albumin 2.0. IMPRESSION: 1. Sepsis. 2. Healthcare-acquired pneumonia. 3. Lactic acidosis, resolved. 4. Severe protein-calorie malnutrition. 5. Acute on chronic diastolic congestive heart failure. 6. Hypovolemia and dehydration, corrected. 7. Hyponatremia and hyperkalemia, corrected. 8. Hypovolemia and sepsis with shock recovering. PLAN: 1. Continue hydration. 2. Adjust IV fluids. 3. Empiric antibiotics. 4. Respiratory therapy. 5. Cardiac monitoring. 6. DVT prophylaxis. 7. Titrate antihypertensive and anti-failure regimen based on clinical parameters. Brady Burks M.D. DR: MU JOB#: [id number] CC:
[2018-08-12 04:00] VITALS: BP 116/70
[2018-08-12] MEDS: Piperacillin/Tazobactam 3.375 GM in D5W 110 ML IVPB SCH ×3 (06:20→21:24)
[2018-08-12] MEDS: HydrALAZINE 50mg tab GT SCH ×3 (06:21→21:15)
--- NOTE | 2018-08-12 07:37 | NUR ---
HAND-OFF: Report given to DAVID Simental.
--- NOTE | 2018-08-12 07:42 | NUR ---
NURSE NOTES: Received report from DAVID Topete. Patient in bed resting, patient on T-piece FiO2 30%, no active s/s cardiac, respiratory distress noticed at this time, denies pain at this time, patient nonverbal, Peters Catheter draining well to gravity, SR with HR 87. IV on left forearm 22G, patent, intact. Endorsed G-tube feeding starts at 1200 and ends at 0800, side rails padded, suction on bedside. Bed in lowest position, side rails upx 3, call light within reach. Will continue to monitor.
--- NOTE | 2018-08-12 07:50 | NUR ---
NURSE NOTES: Dr. Perkins made aware patient has history of DM but no coverage at this time. No order given yet. Will continue to monitor.
[2018-08-12 08:00] VITALS: BP 124/62
[2018-08-12 08:18] LABS: BASOPHILS % (AUTO) 0.6 % (0.0-2.0); EOSINOPHILS % (AUTO) 4.4 % (0.0-3.0); HEMATOCRIT 31.2 % (42.0-52.0); HEMOGLOBIN 10.4 G/DL (14.2-18.0); LYMPHOCYTES % (AUTO) 11.6 % (20.0-45.0); MEAN CORPUSCULAR VOLUME 89 FL (80-99); MONOCYTES % (AUTO) 12.3 % (1.0-10.0); PLATELET COUNT 320 K/UL (150-450); RED BLOOD COUNT 3.49 M/UL (4.70-6.10); RED CELL DISTRIBUTION WIDTH 14.1 % (11.6-14.8); WHITE BLOOD COUNT 15.6 K/UL (4.8-10.8)
[2018-08-12] MEDS: Amikacin for Inhalation 2ML INH SCH (08:49)
[2018-08-12 08:50] LABS: ALANINE AMINOTRANSFERASE 21 U/L (12-78); ALBUMIN 1.9 G/DL (3.4-5.0); ALBUMIN/GLOBULIN RATIO 0.4 (1.0-2.7); ALKALINE PHOSPHATASE 85 U/L (46-116); ANION GAP 6 mmol/L (5-15); ASPARTATE AMINO TRANSFERASE 29 U/L (15-37); BILIRUBIN,TOTAL 0.2 MG/DL (0.2-1.0); BLOOD UREA NITROGEN 20 mg/dL (7-18); CALCIUM 8.4 MG/DL (8.5-10.1); CARBON DIOXIDE 29 MMOL/L (21-32); CHLORIDE 108 MMOL/L (98-107); CREATININE 0.9 MG/DL (0.55-1.30); POTASSIUM 3.9 MMOL/L (3.5-5.1); SODIUM 143 MMOL/L (136-145)
[2018-08-12] MEDS: Tums 500mg GT SCH (09:24)
[2018-08-12] MEDS: Ascorbic Acid 500mg tab GT SCH (09:25)
[2018-08-12] MEDS: Sucralfate 1gm tab GT SCH ×4 (09:25→21:16)
[2018-08-12] MEDS: Tamsulosin 0.4mg cap ORAL SCH (09:25)
[2018-08-12] MEDS: Metoprolol 25mg tab GT SCH ×2 (09:26→21:15)
[2018-08-12] MEDS: sitaGLIPtin 25mg tab GT SCH (09:26)
[2018-08-12] MEDS: Docusate 100mg/10ml Liq GT SCH (09:26)
[2018-08-12] MEDS: Heparin 5000 units/ml inj SUBQ SCH ×2 (09:27→21:14)
--- NOTE | 2018-08-12 10:11 | General Progress Note ---
Assessment/Plan Problem List: (1) Urosepsis (2) Lactic acidosis (3) Acute urinary tract infection (4) Septic shock ICD Codes: A41.9 - Septic shock; R65.21 - Severe sepsis with septic shock SNOMED: 04298846 (5) Diabetes mellitus out of control ICD Codes: E11.9 - Diabetes mellitus out of control SNOMED: 712329621 (6) Septicemia (7) Encephalopathy chronic ICD Codes: G93.49 - Encephalopathy chronic SNOMED: 83174009 (8) Encephalopathy acute ICD Codes: G93.40 - Encephalopathy, unspecified SNOMED: 5847739 Status: stable, progressing Assessment/Plan cont iv abx follow up cultures ID eval pending skin care resp care gt feeds monitor bs Subjective ROS Limited/Unobtainable: No Constitutional: Reports: malaise, weakness HEENT: Reports: no symptoms Cardiovascular: Reports: no symptoms Respiratory: Reports: cough, shortness of breath Gastrointestinal/Abdominal: Reports: difficulty swallowing Genitourinary: Reports: no symptoms Neurologic/Psychiatric: Reports: pre-existing deficit Endocrine: Reports: no symptoms Hematologic/Lymphatic: Reports: no symptoms Allergies: Coded Allergies: No Known Allergies (Unverified , 02/11/13) All Systems: reviewed and negative except above Subjective no events. no fevers. +blood and urine cultures noted. on gt feeds. on trach collar Objective Last 24 Hour Vital Signs Date Time Temp Pulse Resp B/P (MAP) Pulse Ox O2 Delivery O2 Flow Rate FiO2 08/12/18 09:26 86 124/62 08/12/18 09:25 86 124/62 08/12/18 08:50 102 22 98 T-piece 8.0 30 08/12/18 08:42 98 22 96 T-piece 8.0 30 08/12/18 08:00 97.9 86 18 124/62 (82) 95 08/12/18 07:10 96 T-piece 8.0 30 08/12/18 07:10 T-piece 8.0 30 08/12/18 06:21 118/69 08/12/18 04:55 T-piece 8.0 30 08/12/18 04:55 97 T-piece 8.0 30 08/12/18 04:00 87 08/12/18 04:00 97.9 87 20 116/70 (85) 95 08/12/18 00:00 100 08/12/18 00:00 98.2 100 20 121/68 (85) 95 08/11/18 21:38 98 130/69 08/11/18 21:37 130/69 08/11/18 21:00 T-piece 08/11/18 20:00 118 08/11/18 20:00 97.5 118 20 137/72 (93) 97 08/11/18 19:50 115 20 97 T-piece 8.0 30 08/11/18 19:39 T-piece 8.0 30 08/11/18 19:39 115 24 95 T-piece 8.0 30 08/11/18 19:36 95 T-piece 8.0 30 08/11/18 18:30 108 122/73 08/11/18 16:29 122/73 08/11/18 16:00 108 08/11/18 16:00 98.6 97 18 122/73 (89) 98 08/11/18 13:41 T-piece 8.0 30 08/11/18 13:41 96 T-piece 8.0 30 08/11/18 12:00 94 08/11/18 12:00 98.7 96 18 118/71 (87) 98 08/11/18 11:24 89 20 97 T-piece 8.0 30 08/11/18 11:08 89 20 98 T-piece 8.0 30 Intake and Output 08/11/18 08/12/18 19:00 07:00 Intake Total 137.5 ml 1160 ml Output Total 1000 ml 1000 ml Balance -862.5 ml 160 ml Intake Free Water 500 ml IV Total 137.5 ml Tube Feeding 660 ml Output Urine Total 1000 ml 1000 ml # Bowel Movements 1 Laboratory Tests 08/12/18 06:50: White Blood Count 15.6H, Red Blood Count 3.49L, Hemoglobin 10.4L, Hematocrit 31.2L, Mean Corpuscular Volume 89, Mean Corpuscular Hemoglobin 29.9, Mean Corpuscular Hemoglobin Concent 33.4, Red Cell Distribution Width 14.1, Platelet Count 320, Mean Platelet Volume 13.3H, Neutrophils (%) (Auto) 71.0, Lymphocytes (%) (Auto) 11.6L, Monocytes (%) (Auto) 12.3H, Eosinophils (%) (Auto) 4.4H, Basophils (%) (Auto) 0.6, Sodium Level 143, Potassium Level 3.9, Chloride Level 108H, Carbon Dioxide Level 29, Anion Gap 6, Blood Urea Nitrogen 20H, Creatinine 0.9, Estimat Glomerular Filtration Rate > 60, Glucose Level 223H, Calcium Level 8.4L, Total Bilirubin 0.2, Aspartate Amino Transf (AST/SGOT) 29, Alanine Aminotransferase (ALT/SGPT) 21, Alkaline Phosphatase 85, Total Protein 6.2L, Albumin 1.9L, Globulin 4.3, Albumin/Globulin Ratio 0.4L Height (Feet): 5 Height (Inches): 7.00 Weight (Pounds): 184 General Appearance: WD/WN, alert Neck: supple Cardiovascular: normal rate, regular rhythm Respiratory/Chest: chest wall non-tender, lungs clear, normal breath sounds Abdomen: normal bowel sounds, non tender, soft, no organomegaly Edema: no edema noted Arm (L), no edema noted Arm (R), no edema noted Leg (L), no edema noted Leg (R), no edema noted Pedal (L), no edema noted Pedal (R), no edema noted Generalized Neurologic: disoriented, unresponsive Jeremiah Perkins MD Aug 12, 2018 10:11
--- NOTE | 2018-08-12 10:18 | Pulmonology Progress Note ---
Assessment/Plan Assessment/Plan IMPRESSION: Respiratory failure, possible atypical pneumonia; leukocytosis, probable sepsis; acute renal failure, now improving; severe protein-calorie malnutrition; trach; G-tube; urinary retention; history of CVA. PLAN cultures noted ID follow up respiratory care aspiration precautions close follow up monitor imaging dispo once improved hemodynamics noted impression, plan, and exam edited and reviewed in detail care discussed with RN Subjective ROS Limited/Unobtainable: Yes Allergies: Coded Allergies: No Known Allergies (Unverified , 02/11/13) Objective Last 24 Hour Vital Signs Date Time Temp Pulse Resp B/P (MAP) Pulse Ox O2 Delivery O2 Flow Rate FiO2 08/12/18 09:26 86 124/62 08/12/18 09:25 86 124/62 08/12/18 08:50 102 22 98 T-piece 8.0 30 08/12/18 08:42 98 22 96 T-piece 8.0 30 08/12/18 08:00 97.9 86 18 124/62 (82) 95 08/12/18 07:10 96 T-piece 8.0 30 08/12/18 07:10 T-piece 8.0 30 08/12/18 06:21 118/69 08/12/18 04:55 T-piece 8.0 30 08/12/18 04:55 97 T-piece 8.0 30 08/12/18 04:00 87 08/12/18 04:00 97.9 87 20 116/70 (85) 95 08/12/18 00:00 100 08/12/18 00:00 98.2 100 20 121/68 (85) 95 08/11/18 21:38 98 130/69 08/11/18 21:37 130/69 08/11/18 21:00 T-piece 08/11/18 20:00 118 08/11/18 20:00 97.5 118 20 137/72 (93) 97 08/11/18 19:50 115 20 97 T-piece 8.0 30 08/11/18 19:39 T-piece 8.0 30 08/11/18 19:39 115 24 95 T-piece 8.0 30 08/11/18 19:36 95 T-piece 8.0 30 08/11/18 18:30 108 122/73 08/11/18 16:29 122/73 08/11/18 16:00 108 08/11/18 16:00 98.6 97 18 122/73 (89) 98 08/11/18 13:41 T-piece 8.0 30 08/11/18 13:41 96 T-piece 8.0 30 08/11/18 12:00 94 08/11/18 12:00 98.7 96 18 118/71 (87) 98 08/11/18 11:24 89 20 97 T-piece 8.0 30 08/11/18 11:08 89 20 98 T-piece 8.0 30 Intake and Output 08/11/18 08/12/18 19:00 07:00 Intake Total 137.5 ml 1160 ml Output Total 1000 ml 1000 ml Balance -862.5 ml 160 ml Intake Free Water 500 ml IV Total 137.5 ml Tube Feeding 660 ml Output Urine Total 1000 ml 1000 ml # Bowel Movements 1 Objective GENERAL: Ill-appearing male, currently without distress. HEENT: Negative. NECK: Supple. Tracheostomy is in midline. Carotids 2+. LUNGS: With scattered rhonchi. Moderate air entry. CARDIAC: S1, S2. Regular rate and rhythm without murmurs, rubs, or gallops. ABDOMEN: Soft, nontender. G-tube in place. No distention. EXTREMITIES: No cyanosis or clubbing. No edema. Decreased range of motion. NEUROLOGIC: Poor response to pain. SKIN: Noted. Microbiology Date/Time Source Procedure Growth Status 08/10/18 09:06 Blood Blood Culture - Preliminary Gram Negative Esau Resulted 08/10/18 08:50 Blood Blood Culture - Preliminary Gram Negative Esau Resulted 08/10/18 09:07 Nasal Nares MRSA Culture - Final NO METHICILLIN RESISTANT STAPH AUREUS... Complete 08/10/18 09:06 Nasal Nares Influenza Types A,B Antigen (MARIA TERESA) - Final Complete 08/10/18 09:06 Urine,Clean Catch Urine Culture - Preliminary Proteus Mirabilis Resulted 08/10/18 09:07 Rectum VRE Culture - Final NO VANCOMYCIN RESISTANT ENTEROCOCCUS ... Complete Laboratory Tests 08/12/18 06:50: White Blood Count 15.6H, Red Blood Count 3.49L, Hemoglobin 10.4L, Hematocrit 31.2L, Mean Corpuscular Volume 89, Mean Corpuscular Hemoglobin 29.9, Mean Corpuscular Hemoglobin Concent 33.4, Red Cell Distribution Width 14.1, Platelet Count 320, Mean Platelet Volume 13.3H, Neutrophils (%) (Auto) 71.0, Lymphocytes (%) (Auto) 11.6L, Monocytes (%) (Auto) 12.3H, Eosinophils (%) (Auto) 4.4H, Basophils (%) (Auto) 0.6, Sodium Level 143, Potassium Level 3.9, Chloride Level 108H, Carbon Dioxide Level 29, Anion Gap 6, Blood Urea Nitrogen 20H, Creatinine 0.9, Estimat Glomerular Filtration Rate > 60, Glucose Level 223H, Calcium Level 8.4L, Total Bilirubin 0.2, Aspartate Amino Transf (AST/SGOT) 29, Alanine Aminotransferase (ALT/SGPT) 21, Alkaline Phosphatase 85, Total Protein 6.2L, Albumin 1.9L, Globulin 4.3, Albumin/Globulin Ratio 0.4L Current Medications Medications (Trade) Dose Ordered Sig/Magda Route PRN Reason Start Time Stop Time Status Last Admin Dose Admin Acetaminophen (Tylenol) 650 mg Q4H PRN GT Prn Headache/Temp > 101 08/10/18 17:00 09/09/18 16:59 Albuterol Sulfate (Proventil) 2.5 mg Q6H PRN HHN Shortness of Breath 08/10/18 17:00 08/15/18 16:59 08/11/18 01:22 Amikacin Sulfate (Amikin) 500 mg Q12HR@0900,2100 INH 08/11/18 10:00 08/18/18 09:59 08/12/18 08:49 Amlodipine Besylate (Norvasc) 5 mg BID GT 08/10/18 18:00 09/09/18 17:59 08/12/18 09:25 Ascorbic Acid (Vitamin C) 500 mg DAILY GT 08/11/18 09:00 09/10/18 08:59 08/12/18 09:25 Bisacodyl (Dulcolax) 10 mg DAILY RECTAL 08/11/18 09:00 09/10/18 08:59 08/12/18 09:25 Calcium Carbonate (Tums) 500 mg DAILY GT 08/11/18 09:00 09/10/18 08:59 08/12/18 09:24 Dextrose (Dextrose 50%) 25 ml Q30M PRN IV Hypoglycemia 08/12/18 10:15 09/11/18 10:14 UNV Dextrose (Dextrose 50%) 50 ml Q30M PRN IV Hypoglycemia 08/12/18 10:15 09/11/18 10:14 UNV Docusate Sodium (Colace) 100 mg DAILY GT 08/12/18 09:00 09/11/18 08:59 08/12/18 09:26 Doxazosin Mesylate (Cardura) 2 mg BEDTIME GT 08/10/18 21:00 09/09/18 20:59 08/11/18 21:38 Finasteride (Proscar) 5 mg DAILY ORAL 08/11/18 09:00 09/10/18 08:59 08/12/18 09:25 Heparin Sodium (Porcine) (Heparin 5000 units/ml) 5,000 units EVERY 12 HOURS SUBQ 08/10/18 21:00 09/09/18 20:59 08/12/18 09:27 Hydralazine HCl (Apresoline) 50 mg EVERY 8 HOURS GT 08/10/18 22:00 09/09/18 21:59 08/12/18 06:21 Insulin Aspart (NovoLOG) BEFORE MEALS AND HS SUBQ 08/12/18 11:30 09/11/18 11:29 UNV Magnesium Hydroxide (Mom) 30 ml DAILY PRN GT Constipation 08/10/18 17:00 09/09/18 16:59 Metoprolol Tartrate (Lopressor) 25 mg EVERY 12 HOURS GT 08/10/18 21:00 09/09/18 20:59 08/12/18 09:26 Piperacillin Sod/ Tazobactam Sod 3.375 gm/Dextrose 110 ml @ 27.5 mls/hr EVERY 8 HOURS IVPB 08/10/18 22:00 08/15/18 21:59 08/12/18 06:20 Saccharomyces Boulardii (Florastor) 250 mg TWICE A DAY GT 08/11/18 09:00 09/10/18 08:59 08/12/18 09:25 Sitagliptin Phosphate (Januvia) 100 mg DAILY GT 08/11/18 09:00 09/10/18 08:59 08/12/18 09:26 Sucralfate (Carafate) 1 gm FOUR TIMES A DAY GT 08/10/18 18:00 09/09/18 17:59 08/12/18 09:25 Tamsulosin HCl (Flomax) 0.4 mg DAILY ORAL 08/11/18 09:00 09/10/18 08:59 08/12/18 09:25 Silver Diaz MD Aug 12, 2018 10:18
[2018-08-12 12:00] VITALS: BP 127/71
[2018-08-12] MEDS: NovoLOG Insulin Flexpen SUBQ SCH ×2 (14:13→17:25)
--- NOTE | 2018-08-12 14:18 | NUR ---
RD ASSESSMENT & RECOMMENDATIONS SEE CARE ACTIVITY FOR COMPLETE ASSESSMENT DAILY ESTIMATED NEEDS: Needs based on Pulmonary, DM 71kg adj 23-28 kcals/kg total kcals 1-1.5 g protein/kg 71-107 g total protein 23-28ml/kcal mL/kg total fluid mLs NUTRITION DIAGNOSIS: 1) Swallowing difficulty R/T respiratory status as evidenced by pt vent dep via T-collar w/ PEG feedings 2) Altered nutrition related lab values r/t diabetes as evidenced by elev BG, on oral and IM hypoglycemic agents. CURRENT TF:Glucerna 1.5@55ml x2 hrs ENTERAL NUTRITION RECOMMENDATIONS: Glucerna 1.5 @55ml/hr x20 hrs to provide 1100ml, 1650 kcal, 91g prot, 835ml free H2o - Maintain current TF and rate to meet 100% est needs - Flush per MD/ HOB over 30 degrees ADDITIONAL RECOMMENDATIONS: - Change bed scale to wallace bed for accurate CBW - Monitor lytes daily on TF - Monitor tolerance to TF, need for change - tighter glycemic control
[2018-08-12 16:00] VITALS: BP 126/74
--- NOTE | 2018-08-12 16:32 | Cardiology Report ---
APPROVED REPORT EKG Measurement Heart [id number] Sinus tachycardia Possible Anterior infarct, age undetermined Abnormal ECG
--- NOTE | 2018-08-12 19:19 | NUR ---
HAND-OFF: Report given to DAVID Topete.
--- NOTE | 2018-08-12 19:20 | NUR ---
NURSE NOTES: Received report from DAVID Simental. Pt is resting in bed. In no acute distress. Pt is on T-Piece @ 30% FiO2. F/C intact and draining. G-Tube intact. HOB elevated. Bed in lowest position, call light within reach. Will continue plan of care.
[2018-08-12 20:00] VITALS: BP 123/65
--- NOTE | 2018-08-12 20:15 | Consultation ---
DATE OF CONSULTATION: 08/12/2018 INFECTIOUS DISEASES CONSULTATION This consult is for coverage of Dr. Alegria. CONSULTING PHYSICIAN: Kuldip Rosado M.D. PRIMARY ATTENDING PHYSICIAN: Jeremiah Perkins M.D. REASON FOR CONSULTATION: Gram-negative sepsis and UTI. HISTORY OF PRESENT ILLNESS: This is a 68-year-old male who is a [facility] resident, admitted on 08/10/2018 because of shortness of breath and congestion. He has chronic respiratory failure and is status post tracheostomy. He is a [facility] resident. At the time of admission, he had leukocytosis of 33.7 and fever of 103.8. He was also hypotensive at the day of admission. PAST MEDICAL HISTORY: Significant for CVA, COPD, diabetes mellitus, hypertension, seizure disorder, and anemia. PAST SURGICAL HISTORY: Tracheostomy and G-tube placement. ALLERGIES: No known drug allergies. MEDICATIONS: Insulin, Colace, amikacin, vitamin C, bisacodyl, finasteride, Florastor, Januvia, Flomax, hydralazine, Zosyn, heparin, metoprolol, amlodipine, sucralfate, Tylenol, albuterol, and magnesium hydroxide. SOCIAL HISTORY: half-way resident, bedbound. Poor mental functional status. PHYSICAL EXAMINATION: VITAL SIGNS: Pulse 86, temperature 97.2, and blood pressure 124/63. GENERAL APPEARANCE: No acute distress. Seems to have normal weight. HEAD AND NECK: Status post tracheostomy. Slightly whitish tongue. HEART: Normal rate. LUNGS: Clear. The patient is on oxygen by nasal cannula. ABDOMEN: Soft. G-tube in place. EXTREMITIES: He has some edema in hands. Bilateral sequential compression device of legs. NEUROLOGIC: Noncommunicative. He opens eyes. LABORATORY AND DIAGNOSTIC DATA: WBC is 15.6, coming down from 33.7. At the time of admission, hemoglobin 10.4, hematocrit 31.2, and platelets are 320,000. Sodium 143, potassium 3.9, chloride 108, bicarbonate 29, BUN 20, creatinine 0.9, glucose 223. Lactic acid at the time of admission 6.5, subsequently became 2. Alkaline phosphatase was elevated at 125. Albumin is low at 2.5. Blood cultures x2, gram-negative rods. Urine culture, Proteus mirabilis. Influenza A and B were negative. MRSA and VRE screening was negative. Chest x-ray showed interstitial airspace edema, left greater than right. IMPRESSION: 1. Gram-negative sepsis, likely secondary to UTI. 2. Proteus UTI. 3. Pulmonary edema or pneumonia. 4. COPD. 5. Chronic respiratory failure, status post tracheostomy. 6. Lactic acidosis that has resolved. 7. Anemia. RECOMMENDATION: We will continue with Zosyn. We will follow up the cultures obtained. I discontinued amikacin inhaler. At the end of my exam, I thank Dr. Perkins for involving me in the care of this patient. Kuldip Rosado M.D. DR: MARLO JOB#: [id number] CC: MARIA DEL CARMEN
[2018-08-12] MEDS: Doxazosin 1mg Tab GT SCH (21:15)
[2018-08-13] VITALS: BP 120/62
[2018-08-13] MEDS: NovoLOG Insulin Flexpen SUBQ SCH ×5 (00:17→17:26)
--- NOTE | 2018-08-13 01:15 | Progress Note ---
DATE: 08/12/2018 CARDIOLOGY PROGRESS NOTE SUBJECTIVE: The patient has no new fever spikes. Positive blood and cultures are noted. OBJECTIVE: VITAL SIGNS: Blood pressure parameters remain stable at 124/62, heart rate 86 to 102, and respiratory rate 18 to 22. The patient is afebrile. LUNGS: Coarse breath sounds and rhonchi. HEART: Regular rhythm and rate. Normal S1 and S2. ABDOMEN: Soft. EXTREMITIES: No edema. LABORATORY DATA: White count 15.6 and hemoglobin 10.4. Sodium 143, potassium 3.9, bicarbonate 29, BUN 20, and creatinine 0.9. Albumin 1.9. IMPRESSION: 1. Sepsis. 2. Recovered shock. 3. Urinary tract infection with proteus and associated bacteremia. 4. Hypovolemia and dehydration, corrected. 5. Lactic acidosis, resolved. 6. Acute on chronic diastolic congestive heart failure, compensated. PLAN: 1. Antimicrobials. 2. Respiratory hygiene. 3. Adjust IV fluids based on clinical parameters. 4. Titrate antihypertensive based on clinical progress. Brady Burks M.D. DR: SANTIAGO JOB#: [id number] CC:
[2018-08-13 04:00] VITALS: BP 110/54
[2018-08-13] MEDS: Piperacillin/Tazobactam 3.375 GM in D5W 110 ML IVPB SCH ×3 (06:04→21:41)
[2018-08-13] MEDS: HydrALAZINE 50mg tab GT SCH ×3 (06:04→21:37)
--- NOTE | 2018-08-13 06:51 | NUR ---
NURSE NOTES: Received report from DAVID Topete. Patient in bed resting, SR with HR 71, patient nonverbal. Patient on T-Piece at 30% FiO2. No active s/s cardiac, respiratory distress noticed at this time. Peters Catheter draining well to gravity, IV on left FA 22G asymptomatic, patent, intact, IV running at prescribed rate. G-Tube intact, running at 55ml/h. HOB elevated. Bed in lowest position, side rails upx3, call light within reach. Will continue to monitor.
--- NOTE | 2018-08-13 07:00 | NUR ---
HAND-OFF: Report given to DAVID Simental.
[2018-08-13 08:00] VITALS: BP 129/72
--- NOTE | 2018-08-13 08:37 | Pulmonology Progress Note ---
Assessment/Plan Assessment/Plan IMPRESSION: Respiratory failure, possible atypical pneumonia; leukocytosis, probable sepsis; acute renal failure, now improving; severe protein-calorie malnutrition; trach; G-tube; urinary retention; history of CVA. PLAN cultures noted and reviewed ID follow up respiratory care aspiration precautions as is close follow up monitor imaging suction as needed dispo once improved and cleared by all hemodynamics noted impression, plan, and exam edited and reviewed in detail care discussed with RN Subjective ROS Limited/Unobtainable: Yes Allergies: Coded Allergies: No Known Allergies (Unverified , 02/11/13) Objective Last 24 Hour Vital Signs Date Time Temp Pulse Resp B/P (MAP) Pulse Ox O2 Delivery O2 Flow Rate FiO2 08/13/18 07:00 95 T-piece 8.0 30 08/13/18 07:00 T-piece 8.0 30 08/13/18 06:04 125/68 08/13/18 04:00 97.8 71 20 110/54 (72) 95 08/13/18 04:00 71 08/13/18 01:22 97 T-piece 8.0 30 08/13/18 01:22 T-piece 8.0 30 08/13/18 00:00 97.3 83 20 120/62 (81) 96 08/13/18 00:00 83 08/12/18 23:56 T-piece 8.0 30 08/12/18 21:15 90 128/68 08/12/18 21:15 128/68 08/12/18 21:00 T-piece 08/12/18 20:00 98.1 98 20 123/65 (84) 96 08/12/18 20:00 98 08/12/18 19:30 95 T-piece 8.0 30 08/12/18 19:30 T-piece 8.0 30 08/12/18 17:26 76 126/74 08/12/18 16:00 98.9 76 18 126/74 (91) 98 08/12/18 16:00 90 08/12/18 14:13 127/71 08/12/18 13:02 97 T-piece 8.0 30 08/12/18 13:02 T-piece 8.0 30 08/12/18 12:00 91 08/12/18 12:00 98.8 80 18 127/71 (89) 96 08/12/18 09:26 86 124/62 08/12/18 09:25 86 124/62 08/12/18 09:00 T-piece 08/12/18 08:50 102 22 98 T-piece 8.0 30 08/12/18 08:42 98 22 96 T-piece 8.0 30 Intake and Output 08/12/18 08/13/18 19:00 07:00 Intake Total 1215 ml Output Total 700 ml 2300 ml Balance -700 ml -1085 ml Intake Free Water 500 ml IV Total 110 ml Tube Feeding 605 ml Output Urine Total 700 ml 2300 ml # Bowel Movements 1 Objective GENERAL: Ill-appearing male, currently without distress. HEENT: Negative. NECK: Supple. Tracheostomy is in midline. Carotids 2+. LUNGS: With some rhonchi. Moderate air entry. CARDIAC: S1, S2. Regular rate and rhythm without murmurs, rubs, or gallops. ABDOMEN: Soft, nontender. G-tube in place. No distention. EXTREMITIES: No cyanosis or clubbing. No edema. Decreased range of motion. NEUROLOGIC: Poor response to pain. SKIN: Noted. reviewed and edited Microbiology Date/Time Source Procedure Growth Status 08/10/18 09:06 Blood Blood Culture - Preliminary Proteus Mirabilis Resulted 08/10/18 08:50 Blood Blood Culture - Preliminary Proteus Mirabilis Resulted 08/10/18 09:07 Nasal Nares MRSA Culture - Final NO METHICILLIN RESISTANT STAPH AUREUS... Complete 08/10/18 09:06 Nasal Nares Influenza Types A,B Antigen (MARIA TERESA) - Final Complete 08/10/18 09:06 Urine,Clean Catch Urine Culture - Final Proteus Mirabilis Complete 08/10/18 09:07 Rectum VRE Culture - Final NO VANCOMYCIN RESISTANT ENTEROCOCCUS ... Complete Current Medications Medications (Trade) Dose Ordered Sig/Magda Route PRN Reason Start Time Stop Time Status Last Admin Dose Admin Acetaminophen (Tylenol) 650 mg Q4H PRN GT Prn Headache/Temp > 101 08/10/18 17:00 09/09/18 16:59 Albuterol Sulfate (Proventil) 2.5 mg Q6H PRN HHN Shortness of Breath 08/10/18 17:00 08/15/18 16:59 08/11/18 01:22 Amlodipine Besylate (Norvasc) 5 mg DAILY GT 08/13/18 09:00 09/12/18 08:59 Ascorbic Acid (Vitamin C) 500 mg DAILY GT 08/11/18 09:00 09/10/18 08:59 08/12/18 09:25 Bisacodyl (Dulcolax) 10 mg DAILY RECTAL 08/11/18 09:00 09/10/18 08:59 08/12/18 09:25 Calcium Carbonate (Tums) 500 mg DAILY GT 08/11/18 09:00 09/10/18 08:59 08/12/18 09:24 Dextrose (Dextrose 50%) 25 ml Q30M PRN IV Hypoglycemia 08/12/18 10:20 09/11/18 10:19 Dextrose (Dextrose 50%) 50 ml Q30M PRN IV Hypoglycemia 08/12/18 10:20 09/11/18 10:19 Docusate Sodium (Colace) 100 mg DAILY GT 08/12/18 09:00 09/11/18 08:59 08/12/18 09:26 Doxazosin Mesylate (Cardura) 2 mg BEDTIME GT 08/10/18 21:00 09/09/18 20:59 08/12/18 21:15 Finasteride (Proscar) 5 mg DAILY ORAL 08/11/18 09:00 09/10/18 08:59 08/12/18 09:25 Heparin Sodium (Porcine) (Heparin 5000 units/ml) 5,000 units EVERY 12 HOURS SUBQ 08/10/18 21:00 09/09/18 20:59 08/12/18 21:14 Hydralazine HCl (Apresoline) 50 mg EVERY 8 HOURS GT 08/10/18 22:00 09/09/18 21:59 08/13/18 06:04 Insulin Aspart (NovoLOG) Q6HR SUBQ 08/13/18 00:00 09/11/18 11:29 08/13/18 06:14 Magnesium Hydroxide (Mom) 30 ml DAILY PRN GT Constipation 08/10/18 17:00 09/09/18 16:59 Metoprolol Tartrate (Lopressor) 25 mg EVERY 12 HOURS GT 08/10/18 21:00 09/09/18 20:59 08/12/18 21:15 Piperacillin Sod/ Tazobactam Sod 3.375 gm/Dextrose 110 ml @ 27.5 mls/hr EVERY 8 HOURS IVPB 08/10/18 22:00 08/15/18 21:59 08/13/18 06:04 Saccharomyces Boulardii (Florastor) 250 mg TWICE A DAY GT 08/11/18 09:00 09/10/18 08:59 08/12/18 17:26 Sitagliptin Phosphate (Januvia) 100 mg DAILY GT 08/11/18 09:00 09/10/18 08:59 08/12/18 09:26 Sucralfate (Carafate) 1 gm FOUR TIMES A DAY GT 08/10/18 18:00 09/09/18 17:59 08/12/18 21:16 Tamsulosin HCl (Flomax) 0.4 mg DAILY ORAL 08/11/18 09:00 09/10/18 08:59 08/12/18 09:25 Silver Diaz MD Aug 13, 2018 08:37
[2018-08-13] MEDS: sitaGLIPtin 25mg tab GT SCH (08:41)
[2018-08-13] MEDS: Sucralfate 1gm tab GT SCH ×4 (08:41→21:37)
[2018-08-13] MEDS: Docusate 100mg/10ml Liq GT SCH (08:42)
[2018-08-13] MEDS: Metoprolol 25mg tab GT SCH ×2 (08:42→21:38)
[2018-08-13] MEDS: Ascorbic Acid 500mg tab GT SCH (08:43)
[2018-08-13] MEDS: Tums 500mg GT SCH (08:43)
[2018-08-13] MEDS: Heparin 5000 units/ml inj SUBQ SCH ×2 (08:44→21:40)
[2018-08-13] MEDS: Tamsulosin 0.4mg cap ORAL SCH (09:00)
--- NOTE | 2018-08-13 09:22 | NUR ---
NURSE NOTES: Dr. Perkins made aware patient scheduled for Proscar, Flomax and medication cannot be crushed. Per Dr. Perkins, do not administer at this time.
--- NOTE | 2018-08-13 10:50 | Infectious Diseases Prog Note ---
Assessment/Plan Assessment/Plan antibiotics : zosyn A 1. proteus sepsis secondary to UTI 2. proteus UTI 3. leucocytosis improving 4. COPD 5. respiratory failure P 1. continue zosyn 2. US abdomen 3. will follow up cultures Subjective ROS Limited/Unobtainable: Yes Allergies: Coded Allergies: No Known Allergies (Unverified , 02/11/13) Objective Vital Signs Last 24 Hour Vital Signs Date Time Temp Pulse Resp B/P (MAP) Pulse Ox O2 Delivery O2 Flow Rate FiO2 08/13/18 09:00 T-piece 08/13/18 08:42 94 129/72 08/13/18 08:42 94 129/72 08/13/18 08:00 97.7 94 16 129/72 (91) 95 08/13/18 08:00 88 08/13/18 07:00 95 T-piece 8.0 30 08/13/18 07:00 T-piece 8.0 30 08/13/18 06:04 125/68 08/13/18 04:00 97.8 71 20 110/54 (72) 95 08/13/18 04:00 71 08/13/18 01:22 97 T-piece 8.0 30 08/13/18 01:22 T-piece 8.0 30 08/13/18 00:00 97.3 83 20 120/62 (81) 96 08/13/18 00:00 83 08/12/18 23:56 T-piece 8.0 30 08/12/18 21:15 90 128/68 08/12/18 21:15 128/68 08/12/18 21:00 T-piece 08/12/18 20:00 98.1 98 20 123/65 (84) 96 08/12/18 20:00 98 08/12/18 19:30 95 T-piece 8.0 30 08/12/18 19:30 T-piece 8.0 30 08/12/18 17:26 76 126/74 08/12/18 16:00 98.9 76 18 126/74 (91) 98 08/12/18 16:00 90 08/12/18 14:13 127/71 08/12/18 13:02 97 T-piece 8.0 30 08/12/18 13:02 T-piece 8.0 30 08/12/18 12:00 91 08/12/18 12:00 98.8 80 18 127/71 (89) 96 Height (Feet): 5 Height (Inches): 7.00 Weight (Pounds): 184 HEENT: status post trach Respiratory/Chest: lungs clear Cardiovascular: normal rate, regular rhythm, no gallop/murmur Abdomen: soft, non tender, other - GT Extremities: no edema Current Medications Medications (Trade) Dose Ordered Sig/Magda Route PRN Reason Start Time Stop Time Status Last Admin Dose Admin Acetaminophen (Tylenol) 650 mg Q4H PRN GT Prn Headache/Temp > 101 08/10/18 17:00 09/09/18 16:59 Albuterol Sulfate (Proventil) 2.5 mg Q6H PRN HHN Shortness of Breath 08/10/18 17:00 08/15/18 16:59 08/11/18 01:22 Amlodipine Besylate (Norvasc) 5 mg DAILY GT 08/13/18 09:00 09/12/18 08:59 08/13/18 08:42 Ascorbic Acid (Vitamin C) 500 mg DAILY GT 08/11/18 09:00 09/10/18 08:59 08/13/18 08:43 Bisacodyl (Dulcolax) 10 mg DAILY RECTAL 08/11/18 09:00 09/10/18 08:59 08/13/18 08:43 Calcium Carbonate (Tums) 500 mg DAILY GT 08/11/18 09:00 09/10/18 08:59 08/13/18 08:43 Dextrose (Dextrose 50%) 25 ml Q30M PRN IV Hypoglycemia 08/12/18 10:20 09/11/18 10:19 Dextrose (Dextrose 50%) 50 ml Q30M PRN IV Hypoglycemia 08/12/18 10:20 09/11/18 10:19 Docusate Sodium (Colace) 100 mg DAILY GT 08/12/18 09:00 09/11/18 08:59 08/13/18 08:42 Doxazosin Mesylate (Cardura) 2 mg BEDTIME GT 08/10/18 21:00 09/09/18 20:59 08/12/18 21:15 Finasteride (Proscar) 5 mg DAILY ORAL 08/11/18 09:00 09/10/18 08:59 08/12/18 09:25 Heparin Sodium (Porcine) (Heparin 5000 units/ml) 5,000 units EVERY 12 HOURS SUBQ 08/10/18 21:00 09/09/18 20:59 08/13/18 08:44 Hydralazine HCl (Apresoline) 50 mg EVERY 8 HOURS GT 08/10/18 22:00 09/09/18 21:59 08/13/18 06:04 Insulin Aspart (NovoLOG) Q6HR SUBQ 08/13/18 00:00 09/11/18 11:29 08/13/18 06:14 Magnesium Hydroxide (Mom) 30 ml DAILY PRN GT Constipation 08/10/18 17:00 09/09/18 16:59 Metoprolol Tartrate (Lopressor) 25 mg EVERY 12 HOURS GT 08/10/18 21:00 09/09/18 20:59 08/13/18 08:42 Piperacillin Sod/ Tazobactam Sod 3.375 gm/Dextrose 110 ml @ 27.5 mls/hr EVERY 8 HOURS IVPB 08/10/18 22:00 08/15/18 21:59 08/13/18 06:04 Saccharomyces Boulardii (Florastor) 250 mg TWICE A DAY GT 08/11/18 09:00 09/10/18 08:59 08/13/18 08:42 Sitagliptin Phosphate (Januvia) 100 mg DAILY GT 08/11/18 09:00 09/10/18 08:59 08/13/18 08:41 Sucralfate (Carafate) 1 gm FOUR TIMES A DAY GT 08/10/18 18:00 09/09/18 17:59 08/13/18 08:41 Tamsulosin HCl (Flomax) 0.4 mg DAILY ORAL 08/11/18 09:00 09/10/18 08:59 08/12/18 09:25 Jesica Alegria MD Aug 13, 2018 10:50
[2018-08-13 12:00] VITALS: BP 109/61
--- NOTE | 2018-08-13 14:10 | NUR ---
NURSE NOTES: Gina from ultrasound came to nursing station stated she accidentally cancelled the order for US abd. Per Gina, Dr. Guerin still wanted to do US abd. Order re-entered, noted, carried out.
[2018-08-13 16:00] VITALS: BP 122/67
--- NOTE | 2018-08-13 16:30 | General Progress Note ---
Assessment/Plan Problem List: (1) Urosepsis (2) Lactic acidosis (3) Acute urinary tract infection (4) Septic shock ICD Codes: A41.9 - Septic shock; R65.21 - Severe sepsis with septic shock SNOMED: 59428338 (5) Diabetes mellitus out of control ICD Codes: E11.9 - Diabetes mellitus out of control SNOMED: 548841376 (6) Septicemia (7) Encephalopathy chronic ICD Codes: G93.49 - Encephalopathy chronic SNOMED: 17894307 (8) Encephalopathy acute ICD Codes: G93.40 - Encephalopathy, unspecified SNOMED: 5728408 Status: stable, progressing Assessment/Plan cont iv abx follow up cultures ID eval appreciated abd us skin care resp care gt feeds monitor bs d/w son andrew x 10 mins Subjective ROS Limited/Unobtainable: Yes Constitutional: Reports: malaise, weakness HEENT: Reports: no symptoms Cardiovascular: Reports: no symptoms Respiratory: Reports: cough Gastrointestinal/Abdominal: Reports: no symptoms Genitourinary: Reports: no symptoms Neurologic/Psychiatric: Reports: pre-existing deficit Endocrine: Reports: no symptoms Hematologic/Lymphatic: Reports: no symptoms Allergies: Coded Allergies: No Known Allergies (Unverified , 02/11/13) All Systems: reviewed and negative except above Subjective no events. no fevers. positive blood and urine cultures noted. Objective Last 24 Hour Vital Signs Date Time Temp Pulse Resp B/P (MAP) Pulse Ox O2 Delivery O2 Flow Rate FiO2 08/13/18 14:05 124/69 08/13/18 14:01 99 T-piece 8.0 30 08/13/18 14:01 T-piece 8.0 30 08/13/18 12:00 97.9 78 16 109/61 (77) 95 08/13/18 09:00 T-piece 08/13/18 08:42 94 129/72 08/13/18 08:42 94 129/72 08/13/18 08:00 97.7 94 16 129/72 (91) 95 08/13/18 08:00 88 08/13/18 07:00 95 T-piece 8.0 30 08/13/18 07:00 T-piece 8.0 30 08/13/18 06:04 125/68 08/13/18 04:00 97.8 71 20 110/54 (72) 95 08/13/18 04:00 71 08/13/18 01:22 97 T-piece 8.0 30 08/13/18 01:22 T-piece 8.0 30 08/13/18 00:00 97.3 83 20 120/62 (81) 96 08/13/18 00:00 83 08/12/18 23:56 T-piece 8.0 30 08/12/18 21:15 90 128/68 08/12/18 21:15 128/68 08/12/18 21:00 T-piece 08/12/18 20:00 98.1 98 20 123/65 (84) 96 08/12/18 20:00 98 08/12/18 19:30 95 T-piece 8.0 30 08/12/18 19:30 T-piece 8.0 30 08/12/18 17:26 76 126/74 Intake and Output 08/12/18 08/13/18 19:00 07:00 Intake Total 1215 ml Output Total 700 ml 2300 ml Balance -700 ml -1085 ml Intake Free Water 500 ml IV Total 110 ml Tube Feeding 605 ml Output Urine Total 700 ml 2300 ml # Bowel Movements 1 Height (Feet): 5 Height (Inches): 7.00 Weight (Pounds): 184 Objective General Appearance: WD/WN, alert Neck: supple Cardiovascular: normal rate, regular rhythm Respiratory/Chest: chest wall non-tender, lungs clear, normal breath sounds Abdomen: normal bowel sounds, non tender, soft, no organomegaly Edema: no edema noted Arm (L), no edema noted Arm (R), no edema noted Leg (L), no edema noted Leg (R), no edema noted Pedal (L), no edema noted Pedal (R), no edema noted Generalized Neurologic: disoriented, unresponsive Jeremiah Perkins MD Aug 13, 2018 16:30
--- NOTE | 2018-08-13 17:15 | Diagnostic Imaging Report ---
Indication:Abdominal pain Technique: Grayscale and duplex Doppler imaging of the abdomen performed. Comparison: None Findings: The exam is very limited due to bowel gas. The liver is echogenic likely due to fatty infiltration. There is no obvious free fluid. Suggestion of a renal cysts within the left kidney. No obvious biliary ductal dilatation identified. Doppler evaluation of the main portal vein shows patency. No hydronephrosis seen. CBD is 3.7 mm. The pancreas and aorta are not seen. Portions of the liver are not seen. The spleen is not seen. Impression: No acute findings. Very limited study.
--- NOTE | 2018-08-13 19:35 | NUR ---
NURSE NOTES: Received pt. and report from DAVID Simental. Observe pt. resting in bed with family member at beside. monitoring and evaluation advisor is in placed, IV site is intact, asymptomatic, and patent. Pt. has a T-piece; 8L, FiO2 30% with cooling mist. Pt. is on G-tube feeding of Glucerna 1.5 @ 55cc/hr. HOB is at 30 degrees; aspiration precaution noted. Bed in the lowest position and locked, call light within reach. No acute distress noted at this time. Will continue plan of care.
--- NOTE | 2018-08-13 19:44 | NUR ---
HAND-OFF: Report given to DAVID Chauhan.
[2018-08-13] MEDS ORDERED: Tubing IV Secondary IV ONE (19:56)
[2018-08-13] MEDS ORDERED: NS 275ml ONE (19:56)
[2018-08-13 20:00] VITALS: BP 131/71
[2018-08-13] MEDS: Doxazosin 1mg Tab GT SCH (21:36)
--- NOTE | 2018-08-13 22:30 | Progress Note ---
DATE: 08/13/2018 CARDIOLOGY PROGRESS NOTE: SUBJECTIVE: The patient is in no distress. Continues on antimicrobials. Respiratory hygiene. OBJECTIVE: VITAL SIGNS: Blood pressure 124/69, pulse 78, respirations 16. LUNGS: Few rhonchi. HEART: Regular rhythm and rate. Normal S1, S2. Fourth heart sound. ABDOMEN: Soft. G-tube intact. EXTREMITIES: No edema. DIAGNOSTIC AND LABORATORY DATA: Abdominal ultrasound today a limited study with no acute process. Proteus is positive with the blood and urine. IMPRESSION: 1. Proteus sepsis. 2. Proteus urinary tract infection. 3. Toxic and metabolic encephalopathies. 4. Hypertensive heart disease. 5. Hypovolemia and dehydration, corrected. 6. Recovered shock. 7. Lactic acidosis, resolved. 8. Acute on chronic diastolic congestive heart failure, now compensated. PLAN: 1. Antimicrobials. 2. Volume support as needed. 3. Respiratory hygiene. 4. Skin care. 5. Titration of antihypertensives based on clinical parameters. Brady Burks M.D. DR: JOANNA JOB#: [id number] CC:
[2018-08-14] VITALS: BP 118/65
[2018-08-14] MEDS: NovoLOG Insulin Flexpen SUBQ SCH ×5 (00:12→23:54)
[2018-08-14 04:00] VITALS: BP 110/57
[2018-08-14] MEDS: Piperacillin/Tazobactam 3.375 GM in D5W 110 ML IVPB SCH (06:06)
[2018-08-14] MEDS: HydrALAZINE 50mg tab GT SCH ×3 (06:07→21:07)
--- NOTE | 2018-08-14 07:32 | NUR ---
NURSE NOTES: Received patient from DAVID Chauhan in bed resting comfortably. No s/s of pain, no s/s of acute distress noted. Noted patient has G-Tube Glucerna 1.5 running at 55cc/hr, flushed with 250cc of free water, no residual. Peters catheter draining to gravity. Noted bilateral lower extremities edema. Bed is in lowest position with bedside rails up x3, brakes engaged for safety. Call light is within reach. Will continue with the plan of care.
[2018-08-14 07:56] LABS: BASOPHILS % (AUTO) 0.7 % (0.0-2.0); EOSINOPHILS % (AUTO) 7.6 % (0.0-3.0); HEMATOCRIT 32.7 % (42.0-52.0); HEMOGLOBIN 10.7 G/DL (14.2-18.0); LYMPHOCYTES % (AUTO) 21.2 % (20.0-45.0); MEAN CORPUSCULAR VOLUME 90 FL (80-99); MONOCYTES % (AUTO) 11.4 % (1.0-10.0); PLATELET COUNT 418 K/UL (150-450); RED BLOOD COUNT 3.65 M/UL (4.70-6.10); RED CELL DISTRIBUTION WIDTH 13.9 % (11.6-14.8); WHITE BLOOD COUNT 15.6 K/UL (4.8-10.8)
[2018-08-14 08:00] VITALS: BP 126/66
[2018-08-14 08:31] LABS: ANION GAP 7 mmol/L (5-15); BLOOD UREA NITROGEN 14 mg/dL (7-18); CALCIUM 8.7 MG/DL (8.5-10.1); CARBON DIOXIDE 28 MMOL/L (21-32); CHLORIDE 106 MMOL/L (98-107); CREATININE 0.8 MG/DL (0.55-1.30); SODIUM 141 MMOL/L (136-145)
[2018-08-14] MEDS: Docusate 100mg/10ml Liq GT SCH (08:42)
[2018-08-14] MEDS: Ascorbic Acid 500mg tab GT SCH (08:42)
[2018-08-14] MEDS: Sucralfate 1gm tab GT SCH ×4 (08:42→20:51)
[2018-08-14] MEDS: Tamsulosin 0.4mg cap ORAL SCH (08:42)
[2018-08-14] MEDS: Tums 500mg GT SCH (08:42)
[2018-08-14] MEDS: Metoprolol 25mg tab GT SCH ×2 (08:42→20:48)
[2018-08-14] MEDS: Heparin 5000 units/ml inj SUBQ SCH ×2 (08:44→20:49)
--- NOTE | 2018-08-14 09:06 | Pulmonology Progress Note ---
Assessment/Plan Assessment/Plan IMPRESSION: Respiratory failure, possible atypical pneumonia; leukocytosis, probable sepsis; acute renal failure, now improving; severe protein-calorie malnutrition; trach; G-tube; urinary retention; history of CVA. PLAN cultures noted and reviewed ID follow up respiratory care aspiration precautions as is close follow up monitor imaging for change suction as needed dispo once improved and cleared by all hemodynamics noted and reviewed impression, plan, and exam edited and reviewed in detail care discussed with RN Subjective ROS Limited/Unobtainable: Yes Allergies: Coded Allergies: No Known Allergies (Unverified , 02/11/13) Subjective unable events reviewed Objective Last 24 Hour Vital Signs Date Time Temp Pulse Resp B/P (MAP) Pulse Ox O2 Delivery O2 Flow Rate FiO2 08/14/18 08:42 80 126/66 08/14/18 08:42 80 126/66 08/14/18 08:00 96 T-piece 8.0 30 08/14/18 08:00 T-piece 8.0 30 08/14/18 08:00 97.7 80 20 126/66 (86) 95 08/14/18 06:07 138/92 08/14/18 04:00 77 08/14/18 04:00 98.0 68 18 110/57 (74) 96 08/14/18 01:23 97 T-piece 8.0 30 08/14/18 01:23 T-piece 8.0 30 08/14/18 00:00 74 08/14/18 00:00 98.0 78 19 118/65 (82) 98 08/13/18 22:01 96 T-piece 8.0 30 08/13/18 22:01 T-piece 8.0 30 08/13/18 21:38 90 131/71 08/13/18 21:37 131/71 08/13/18 21:00 T-piece 08/13/18 20:00 97.2 90 19 131/71 (91) 97 08/13/18 20:00 87 08/13/18 16:00 97.8 82 16 122/67 (85) 95 08/13/18 16:00 81 08/13/18 14:05 124/69 08/13/18 14:01 99 T-piece 8.0 30 08/13/18 14:01 T-piece 8.0 30 08/13/18 12:00 97.9 78 16 109/61 (77) 95 08/13/18 12:00 72 Intake and Output 08/13/18 08/14/18 19:00 07:00 Intake Total 305 ml Output Total 500 ml Balance -195 ml Intake Free Water 250 ml Tube Feeding 55 ml Output Urine Total 500 ml # Bowel Movements 1 Objective GENERAL: Ill-appearing male, currently without distress. HEENT: Negative. NECK: Supple. Tracheostomy is in midline. Carotids 2+. LUNGS: With occasional rhonchi. Moderate air entry. CARDIAC: S1, S2. Regular rate and rhythm without murmurs, rubs, or gallops. ABDOMEN: Soft, nontender. G-tube in place. No distention. EXTREMITIES: No cyanosis or clubbing. No edema. Decreased range of motion. NEUROLOGIC: Poor response to pain. SKIN: Noted. reviewed and edited Laboratory Tests 08/14/18 06:20: White Blood Count 15.6H, Red Blood Count 3.65L, Hemoglobin 10.7L, Hematocrit 32.7L, Mean Corpuscular Volume 90, Mean Corpuscular Hemoglobin 29.2, Mean Corpuscular Hemoglobin Concent 32.6, Red Cell Distribution Width 13.9, Platelet Count 418, Mean Platelet Volume 9.8, Neutrophils (%) (Auto) 59.0, Lymphocytes (% ) (Auto) 21.2, Monocytes (%) (Auto) 11.4H, Eosinophils (%) (Auto) 7.6H, Basophils (%) (Auto) 0.7, Sodium Level 141, Potassium Level 4.0, Chloride Level 106, Carbon Dioxide Level 28, Anion Gap 7, Blood Urea Nitrogen 14, Creatinine 0.8, Estimat Glomerular Filtration Rate > 60, Glucose Level 193H, Calcium Level 8.7, Magnesium Level 1.9, Pro-B-Type Natriuretic Peptide 361H Current Medications Medications (Trade) Dose Ordered Sig/Magda Route PRN Reason Start Time Stop Time Status Last Admin Dose Admin Acetaminophen (Tylenol) 650 mg Q4H PRN GT Prn Headache/Temp > 101 08/10/18 17:00 09/09/18 16:59 Albuterol Sulfate (Proventil) 2.5 mg Q6H PRN HHN Shortness of Breath 08/10/18 17:00 08/15/18 16:59 08/11/18 01:22 Amlodipine Besylate (Norvasc) 5 mg DAILY GT 08/13/18 09:00 09/12/18 08:59 08/14/18 08:42 Ascorbic Acid (Vitamin C) 500 mg DAILY GT 08/11/18 09:00 09/10/18 08:59 08/14/18 08:42 Bisacodyl (Dulcolax) 10 mg DAILY RECTAL 08/11/18 09:00 09/10/18 08:59 08/14/18 08:43 Calcium Carbonate (Tums) 500 mg DAILY GT 08/11/18 09:00 09/10/18 08:59 08/14/18 08:42 Dextrose (Dextrose 50%) 25 ml Q30M PRN IV Hypoglycemia 08/12/18 10:20 09/11/18 10:19 Dextrose (Dextrose 50%) 50 ml Q30M PRN IV Hypoglycemia 08/12/18 10:20 09/11/18 10:19 Docusate Sodium (Colace) 100 mg DAILY GT 08/12/18 09:00 09/11/18 08:59 08/14/18 08:42 Doxazosin Mesylate (Cardura) 2 mg BEDTIME GT 08/10/18 21:00 09/09/18 20:59 08/13/18 21:36 Finasteride (Proscar) 5 mg DAILY ORAL 08/11/18 09:00 09/10/18 08:59 08/14/18 08:42 Heparin Sodium (Porcine) (Heparin 5000 units/ml) 5,000 units EVERY 12 HOURS SUBQ 08/10/18 21:00 09/09/18 20:59 08/14/18 08:44 Hydralazine HCl (Apresoline) 50 mg EVERY 8 HOURS GT 08/10/18 22:00 09/09/18 21:59 08/14/18 06:07 Insulin Aspart (NovoLOG) Q6HR SUBQ 08/13/18 00:00 09/11/18 11:29 08/14/18 06:11 Magnesium Hydroxide (Mom) 30 ml DAILY PRN GT Constipation 08/10/18 17:00 09/09/18 16:59 Metoprolol Tartrate (Lopressor) 25 mg EVERY 12 HOURS GT 08/10/18 21:00 09/09/18 20:59 08/14/18 08:42 Piperacillin Sod/ Tazobactam Sod 3.375 gm/Dextrose 110 ml @ 27.5 mls/hr EVERY 8 HOURS IVPB 08/10/18 22:00 08/15/18 21:59 08/14/18 06:06 Saccharomyces Boulardii (Florastor) 250 mg TWICE A DAY GT 08/11/18 09:00 09/10/18 08:59 08/14/18 08:43 Sitagliptin Phosphate (Januvia) 100 mg DAILY GT 08/11/18 09:00 09/10/18 08:59 08/13/18 08:41 Sucralfate (Carafate) 1 gm FOUR TIMES A DAY GT 08/10/18 18:00 09/09/18 17:59 08/14/18 08:42 Tamsulosin HCl (Flomax) 0.4 mg DAILY ORAL 08/11/18 09:00 09/10/18 08:59 08/14/18 08:42 Silver Diaz MD Aug 14, 2018 09:06
[2018-08-14] MEDS: sitaGLIPtin 25mg tab GT SCH (09:22)
--- NOTE | 2018-08-14 09:31 | General Progress Note ---
Assessment/Plan Problem List: (1) Urosepsis (2) Lactic acidosis (3) Acute urinary tract infection (4) Septic shock ICD Codes: A41.9 - Septic shock; R65.21 - Severe sepsis with septic shock SNOMED: 54190606 (5) Diabetes mellitus out of control ICD Codes: E11.9 - Diabetes mellitus out of control SNOMED: 923465311 (6) Septicemia (7) Encephalopathy chronic ICD Codes: G93.49 - Encephalopathy chronic SNOMED: 79794325 (8) Encephalopathy acute ICD Codes: G93.40 - Encephalopathy, unspecified SNOMED: 6161299 Status: stable, progressing Assessment/Plan cont iv abx follow up cultures ID eval appreciated abd us skin care resp care gt feeds monitor bs d/w son andrew x 10 mins Subjective ROS Limited/Unobtainable: Yes Constitutional: Reports: malaise, weakness HEENT: Reports: no symptoms Cardiovascular: Reports: no symptoms Respiratory: Reports: cough Gastrointestinal/Abdominal: Reports: no symptoms Genitourinary: Reports: no symptoms Neurologic/Psychiatric: Reports: pre-existing deficit Endocrine: Reports: no symptoms Hematologic/Lymphatic: Reports: no symptoms Allergies: Coded Allergies: No Known Allergies (Unverified , 02/11/13) All Systems: reviewed and negative except above Subjective no events. no fevers. positive blood and urine cultures noted. US - unremarkable Objective Last 24 Hour Vital Signs Date Time Temp Pulse Resp B/P (MAP) Pulse Ox O2 Delivery O2 Flow Rate FiO2 08/14/18 08:42 80 126/66 08/14/18 08:42 80 126/66 08/14/18 08:00 96 T-piece 8.0 30 08/14/18 08:00 T-piece 8.0 30 08/14/18 08:00 97.7 80 20 126/66 (86) 95 08/14/18 06:07 138/92 08/14/18 04:00 77 08/14/18 04:00 98.0 68 18 110/57 (74) 96 08/14/18 01:23 97 T-piece 8.0 30 08/14/18 01:23 T-piece 8.0 30 08/14/18 00:00 74 08/14/18 00:00 98.0 78 19 118/65 (82) 98 08/13/18 22:01 96 T-piece 8.0 30 08/13/18 22:01 T-piece 8.0 30 08/13/18 21:38 90 131/71 08/13/18 21:37 131/71 08/13/18 21:00 T-piece 08/13/18 20:00 97.2 90 19 131/71 (91) 97 08/13/18 20:00 87 08/13/18 16:00 97.8 82 16 122/67 (85) 95 08/13/18 16:00 81 08/13/18 14:05 124/69 08/13/18 14:01 99 T-piece 8.0 30 08/13/18 14:01 T-piece 8.0 30 08/13/18 12:00 97.9 78 16 109/61 (77) 95 08/13/18 12:00 72 Intake and Output 08/13/18 08/14/18 18:59 06:59 Intake Total 305 ml Output Total 500 ml Balance -195 ml Intake Free Water 250 ml Tube Feeding 55 ml Output Urine Total 500 ml # Bowel Movements 1 Laboratory Tests 08/14/18 06:20: White Blood Count 15.6H, Red Blood Count 3.65L, Hemoglobin 10.7L, Hematocrit 32.7L, Mean Corpuscular Volume 90, Mean Corpuscular Hemoglobin 29.2, Mean Corpuscular Hemoglobin Concent 32.6, Red Cell Distribution Width 13.9, Platelet Count 418, Mean Platelet Volume 9.8, Neutrophils (%) (Auto) 59.0, Lymphocytes (% ) (Auto) 21.2, Monocytes (%) (Auto) 11.4H, Eosinophils (%) (Auto) 7.6H, Basophils (%) (Auto) 0.7, Sodium Level 141, Potassium Level 4.0, Chloride Level 106, Carbon Dioxide Level 28, Anion Gap 7, Blood Urea Nitrogen 14, Creatinine 0.8, Estimat Glomerular Filtration Rate > 60, Glucose Level 193H, Calcium Level 8.7, Magnesium Level 1.9, Pro-B-Type Natriuretic Peptide 361H Height (Feet): 5 Height (Inches): 7.00 Weight (Pounds): 184 Objective General Appearance: WD/WN, alert Neck: supple Cardiovascular: normal rate, regular rhythm Respiratory/Chest: chest wall non-tender, lungs clear, normal breath sounds Abdomen: normal bowel sounds, non tender, soft, no organomegaly Edema: no edema noted Arm (L), no edema noted Arm (R), no edema noted Leg (L), no edema noted Leg (R), no edema noted Pedal (L), no edema noted Pedal (R), no edema noted Generalized Neurologic: disoriented, unresponsive Jeremiah Perkins MD Aug 14, 2018 09:31
--- NOTE | 2018-08-14 10:42 | Infectious Diseases Prog Note ---
Assessment/Plan Assessment/Plan antibiotics : zosyn 2.15.19 - A 1. proteus sepsis secondary to UTI 2. proteus UTI 3. leucocytosis improving 4. COPD 5. respiratory failure P 1. d/c zosyn 2. start and continue ceftriaxone 5 more days 3. will follow up cultures Subjective ROS Limited/Unobtainable: Yes Allergies: Coded Allergies: No Known Allergies (Unverified , 02/11/13) Objective Vital Signs Last 24 Hour Vital Signs Date Time Temp Pulse Resp B/P (MAP) Pulse Ox O2 Delivery O2 Flow Rate FiO2 08/14/18 08:42 80 126/66 08/14/18 08:42 80 126/66 08/14/18 08:00 96 T-piece 8.0 30 08/14/18 08:00 T-piece 8.0 30 08/14/18 08:00 97.7 80 20 126/66 (86) 95 08/14/18 06:07 138/92 08/14/18 04:00 77 08/14/18 04:00 98.0 68 18 110/57 (74) 96 08/14/18 01:23 97 T-piece 8.0 30 08/14/18 01:23 T-piece 8.0 30 08/14/18 00:00 74 08/14/18 00:00 98.0 78 19 118/65 (82) 98 08/13/18 22:01 96 T-piece 8.0 30 08/13/18 22:01 T-piece 8.0 30 08/13/18 21:38 90 131/71 08/13/18 21:37 131/71 08/13/18 21:00 T-piece 08/13/18 20:00 97.2 90 19 131/71 (91) 97 08/13/18 20:00 87 08/13/18 16:00 97.8 82 16 122/67 (85) 95 08/13/18 16:00 81 08/13/18 14:05 124/69 08/13/18 14:01 99 T-piece 8.0 30 08/13/18 14:01 T-piece 8.0 30 08/13/18 12:00 97.9 78 16 109/61 (77) 95 08/13/18 12:00 72 Height (Feet): 5 Height (Inches): 7.00 Weight (Pounds): 184 HEENT: status post trach Respiratory/Chest: lungs clear Cardiovascular: normal rate, regular rhythm, no gallop/murmur Abdomen: soft, non tender, other - GT Extremities: no edema Laboratory Tests Test 08/14/18 06:20 White Blood Count 15.6 K/UL (4.8-10.8) H Red Blood Count 3.65 M/UL (4.70-6.10) L Hemoglobin 10.7 G/DL (14.2-18.0) L Hematocrit 32.7 % (42.0-52.0) L Mean Corpuscular Volume 90 FL (80-99) Mean Corpuscular Hemoglobin 29.2 PG (27.0-31.0) Mean Corpuscular Hemoglobin Concent 32.6 G/DL (32.0-36.0) Red Cell Distribution Width 13.9 % (11.6-14.8) Platelet Count 418 K/UL (150-450) Mean Platelet Volume 9.8 FL (6.5-10.1) Neutrophils (%) (Auto) 59.0 % (45.0-75.0) Lymphocytes (%) (Auto) 21.2 % (20.0-45.0) Monocytes (%) (Auto) 11.4 % (1.0-10.0) H Eosinophils (%) (Auto) 7.6 % (0.0-3.0) H Basophils (%) (Auto) 0.7 % (0.0-2.0) Sodium Level 141 MMOL/L (136-145) Potassium Level 4.0 MMOL/L (3.5-5.1) Chloride Level 106 MMOL/L (98-107) Carbon Dioxide Level 28 MMOL/L (21-32) Anion Gap 7 mmol/L (5-15) Blood Urea Nitrogen 14 mg/dL (7-18) Creatinine 0.8 MG/DL (0.55-1.30) Estimat Glomerular Filtration Rate > 60 mL/min (>60) Glucose Level 193 MG/DL (74-106) H Calcium Level 8.7 MG/DL (8.5-10.1) Magnesium Level 1.9 MG/DL (1.8-2.4) Pro-B-Type Natriuretic Peptide 361 pg/mL (0-125) H Current Medications Medications (Trade) Dose Ordered Sig/Magda Route PRN Reason Start Time Stop Time Status Last Admin Dose Admin Acetaminophen (Tylenol) 650 mg Q4H PRN GT Prn Headache/Temp > 101 08/10/18 17:00 09/09/18 16:59 Albuterol Sulfate (Proventil) 2.5 mg Q6H PRN HHN Shortness of Breath 08/10/18 17:00 08/15/18 16:59 08/11/18 01:22 Amlodipine Besylate (Norvasc) 5 mg DAILY GT 08/13/18 09:00 09/12/18 08:59 08/14/18 08:42 Ascorbic Acid (Vitamin C) 500 mg DAILY GT 08/11/18 09:00 09/10/18 08:59 08/14/18 08:42 Bisacodyl (Dulcolax) 10 mg DAILY RECTAL 08/11/18 09:00 09/10/18 08:59 08/14/18 08:43 Calcium Carbonate (Tums) 500 mg DAILY GT 08/11/18 09:00 09/10/18 08:59 08/14/18 08:42 Dextrose (Dextrose 50%) 25 ml Q30M PRN IV Hypoglycemia 08/12/18 10:20 09/11/18 10:19 Dextrose (Dextrose 50%) 50 ml Q30M PRN IV Hypoglycemia 08/12/18 10:20 09/11/18 10:19 Docusate Sodium (Colace) 100 mg DAILY GT 08/12/18 09:00 09/11/18 08:59 08/14/18 08:42 Doxazosin Mesylate (Cardura) 2 mg BEDTIME GT 08/10/18 21:00 09/09/18 20:59 08/13/18 21:36 Finasteride (Proscar) 5 mg DAILY ORAL 08/11/18 09:00 09/10/18 08:59 08/14/18 08:42 Heparin Sodium (Porcine) (Heparin 5000 units/ml) 5,000 units EVERY 12 HOURS SUBQ 08/10/18 21:00 09/09/18 20:59 08/14/18 08:44 Hydralazine HCl (Apresoline) 50 mg EVERY 8 HOURS GT 08/10/18 22:00 09/09/18 21:59 08/14/18 06:07 Insulin Aspart (NovoLOG) Q6HR SUBQ 08/13/18 00:00 09/11/18 11:29 08/14/18 06:11 Magnesium Hydroxide (Mom) 30 ml DAILY PRN GT Constipation 08/10/18 17:00 09/09/18 16:59 Metoprolol Tartrate (Lopressor) 25 mg EVERY 12 HOURS GT 08/10/18 21:00 09/09/18 20:59 08/14/18 08:42 Piperacillin Sod/ Tazobactam Sod 3.375 gm/Dextrose 110 ml @ 27.5 mls/hr EVERY 8 HOURS IVPB 08/10/18 22:00 08/15/18 21:59 08/14/18 06:06 Saccharomyces Boulardii (Florastor) 250 mg TWICE A DAY GT 08/11/18 09:00 09/10/18 08:59 08/14/18 08:43 Sitagliptin Phosphate (Januvia) 100 mg DAILY GT 08/11/18 09:00 09/10/18 08:59 08/14/18 09:22 Sucralfate (Carafate) 1 gm FOUR TIMES A DAY GT 08/10/18 18:00 09/09/18 17:59 08/14/18 08:42 Tamsulosin HCl (Flomax) 0.4 mg DAILY ORAL 08/11/18 09:00 09/10/18 08:59 08/14/18 08:42 Jesica Alegria MD Aug 14, 2018 10:42
[2018-08-14 12:00] VITALS: BP 121/62
[2018-08-14] MEDS: cefTRIAXone 1 GM in D5W 55 ML IVPB SCH (12:13)
--- NOTE | 2018-08-14 14:01 | NUR ---
RD ASSESSMENT & RECOMMENDATIONS SEE CARE ACTIVITY FOR COMPLETE ASSESSMENT DAILY ESTIMATED NEEDS: Needs based on Pulmonary, DM 71kg adj 23-28 kcals/kg total kcals 1-1.5 g protein/kg 71-107 g total protein 23-28ml/kcal mL/kg total fluid mLs NUTRITION DIAGNOSIS: 1) Swallowing difficulty R/T respiratory status as evidenced by pt vent dep via T-collar w/ PEG feedings 2) Altered nutrition related lab values r/t diabetes as evidenced by elev BGs, on oral and IM hypoglycemic agents. CURRENT TF:Glucerna 1.5@ 55ml x20 hrs ENTERAL NUTRITION RECOMMENDATIONS: Glucerna 1.5 @55ml x20 hrs to provide 1100ml, 1650 kcal, 91g prot, 835ml free H2o - Maintain current TF and rate to meet 100% est needs - Flush per MD/ HOB over 30 degrees ADDITIONAL RECOMMENDATIONS: - Change bed scale to jose bed for accurate CBW - Monitor lytes daily on TF - Tighter glycemic control, monitor BGs closely .
[2018-08-14 16:00] VITALS: BP 130/72
--- NOTE | 2018-08-14 19:34 | NUR ---
HAND-OFF: Report given to DAVID Orourke. Patient is in stable condition.
--- NOTE | 2018-08-14 19:57 | NUR ---
NURSE NOTES: RECEIVED PATIENT RESTING IN BED, NON-VERBAL. O2 AT 8L VIA T-PIECE. FALL AND ASPIRATION PRECAUTIONS IN PLACE: CALL LIGHT WITHIN REACH, BED IN LOW POSITION AND BED ALARM ON, HOB ELEVATED AT LEAST 30 DEGREES. AT BEDSIDE. PLAN OF CARE REVIEWED.
[2018-08-14 20:00] VITALS: BP 135/77
[2018-08-14] MEDS: Doxazosin 1mg Tab GT SCH (20:47)
[2018-08-15] VITALS: BP 123/67
--- NOTE | 2018-08-15 02:15 | Progress Note ---
DATE: 08/14/2018 SUBJECTIVE: The patient remains on antimicrobials. No new fevers. No shortness of breath or distress. OBJECTIVE: VITAL SIGNS: Blood pressure 126/66, pulse 80, respirations 18, and afebrile. Remaining on T-piece on trach collar. LUNGS: Bilateral breath sounds with few rhonchi. HEART: Regular rhythm and rate. Normal S1, S2. ABDOMEN: Soft. EXTREMITIES: No edema. LABORATORY DATA: White count 15.6 and hemoglobin 10.7. Sodium 141, potassium 4, bicarb 28, BUN 14, and creatinine 0.8. Pro-natriuretic peptide is 361, which has decreased. IMPRESSION: 1. Proteus sepsis. 2. Toxic and metabolic encephalopathies. 3. Hypertensive heart disease. 4. Chronic diastolic congestive heart failure. 5. Lactic acidosis, resolved. 6. Shock recovered due to sepsis. PLAN: 1. Plan of care in place with antimicrobials. 2. Continue respiratory hygiene. 3. Monitor cardiovascular parameters although presently no diuretic dosing is indicated. Brady Burks M.D. DR: BOB JOB#: [id number] CC:
[2018-08-15 04:00] VITALS: BP 138/90
[2018-08-15] MEDS: HydrALAZINE 50mg tab GT SCH (05:34)
[2018-08-15] MEDS: NovoLOG Insulin Flexpen SUBQ SCH ×2 (05:40→13:32)
--- NOTE | 2018-08-15 06:00 | NUR ---
NURSE NOTES: PATIENT KEPT CLEAN AND DRY, MORNING CARE GIVEN, GT SITE DRESSING CHANGED. NOTED REDNESS AND DRAINAGE ON GT SITE. CLEANSED SITE WITH NS, PATTED DRY. PLACED ORDER FOR WOUND CARE NURSE. PATIENT TURNED AND REPOSITIONED, BUE AND BLE ELEVATED ON PILLOW WITH HEELS FLOATING.
--- NOTE | 2018-08-15 07:33 | NUR ---
HAND-OFF: Report given to Miguelangel ROBERTSON RN. PATIENT RESTING IN BED, NO SIGNS OF DISTRESS NOTED. ENDORSED TO FOLLOW UP WITH WOUND CARE NURSE.
--- NOTE | 2018-08-15 07:35 | NUR ---
NURSE NOTES: Report received from Haven Recinos RN.Pt resting in bed asleep,noted no resp distress,on T-Piece 8L Fio2 30%,no signs of pain or discomfort ,SR on the monitor,GTF Glucerna 1.5 at 55ml/hr x20 hrs,no residual noted.Peters cath to BSD draining yellow urine ,IV site to LFA intact,skin warm and dry,SR up x2 HOB elevated,bed lock in lowest position will continue with plans of care.
[2018-08-15 08:00] VITALS: BP 145/71
[2018-08-15] MEDS ORDERED: CEFTRIAXON1 GM/50 ML IV (08:08)
--- NOTE | 2018-08-15 08:15 | NUR ---
NURSE NOTES: Dr Perkins at bedside ,with discharge orders.GTF turned off fr [id number].
--- NOTE | 2018-08-15 08:47 | NUR ---
*-* DISCHARGE PLANNING *-* PATIENT HAS BEEN REFERRED BACK TO: [facility] P:[phone] F:[phone]
--- NOTE | 2018-08-15 08:55 | NUR ---
*-* DISCHARGE PLANNED *-* PATIENT IS DISCHARGED BACK TO: [facility] RO[facility] [place] T:[phone] FOR NURSE TO NURSE REPORT [facility] HAS BEEN ARRANGED FOR SUCTION DR[employer]GE [employer] AT [id number] *-* SPOKE TO SYL CALDERÓN MADE AWARE OF PT'S D/C *-*
[2018-08-15] MEDS: Sucralfate 1gm tab GT SCH ×2 (09:39→13:32)
[2018-08-15] MEDS: Ascorbic Acid 500mg tab GT SCH (09:40)
[2018-08-15] MEDS: Tums 500mg GT SCH (09:40)
[2018-08-15] MEDS: Docusate 100mg/10ml Liq GT SCH (09:43)
[2018-08-15] MEDS: Tamsulosin 0.4mg cap ORAL SCH (09:44)
[2018-08-15] MEDS: Heparin 5000 units/ml inj SUBQ SCH (09:45)
[2018-08-15] MEDS: Metoprolol 25mg tab GT SCH (09:48)
--- NOTE | 2018-08-15 10:20 | Infectious Diseases Prog Note ---
Assessment/Plan Assessment/Plan antibiotics : ceftriaxone A 1. proteus sepsis secondary to UTI 2. proteus UTI 3. leucocytosis improving 4. COPD 5. respiratory failure P 1. continue ceftriaxone 4 more days 2. will follow up cultures Subjective ROS Limited/Unobtainable: Yes Allergies: Coded Allergies: No Known Allergies (Unverified , 02/11/13) Objective Vital Signs Last 24 Hour Vital Signs Date Time Temp Pulse Resp B/P (MAP) Pulse Ox O2 Delivery O2 Flow Rate FiO2 08/15/18 09:48 80 145/71 08/15/18 09:42 80 145/71 08/15/18 07:58 95 T-piece 8.0 30 08/15/18 07:58 T-piece 8.0 30 08/15/18 05:34 138/90 08/15/18 04:00 96.6 80 16 138/90 (106) 94 08/15/18 04:00 88 08/15/18 01:10 T-piece 8.0 30 08/15/18 01:10 96 T-piece 8.0 30 08/15/18 00:00 97.7 76 17 123/67 (85) 93 08/15/18 00:00 75 08/15/18 00:00 75 08/14/18 21:07 135/77 08/14/18 21:00 T-piece 08/14/18 20:48 87 135/77 08/14/18 20:18 T-piece 8.0 30 08/14/18 20:14 97 T-piece 8.0 30 08/14/18 20:00 84 08/14/18 20:00 98.1 87 16 135/77 (96) 96 08/14/18 16:00 98.4 83 20 130/72 (91) 08/14/18 16:00 78 08/14/18 13:36 121/62 08/14/18 12:40 95 T-piece 8.0 30 08/14/18 12:40 T-piece 8.0 30 08/14/18 12:00 98.1 79 20 121/62 (81) 97 08/14/18 12:00 82 Height (Feet): 5 Height (Inches): 7.00 Weight (Pounds): 86 HEENT: status post trach Respiratory/Chest: lungs clear Cardiovascular: normal rate, regular rhythm, no gallop/murmur Abdomen: soft, non tender, other - GT Extremities: no edema Current Medications Medications (Trade) Dose Ordered Sig/Magda Route PRN Reason Start Time Stop Time Status Last Admin Dose Admin Acetaminophen (Tylenol) 650 mg Q4H PRN GT Prn Headache/Temp > 101 08/10/18 17:00 09/09/18 16:59 Albuterol Sulfate (Proventil) 2.5 mg Q6H PRN HHN Shortness of Breath 08/10/18 17:00 08/15/18 16:59 08/11/18 01:22 Amlodipine Besylate (Norvasc) 5 mg DAILY GT 08/13/18 09:00 09/12/18 08:59 08/15/18 09:42 Ascorbic Acid (Vitamin C) 500 mg DAILY GT 08/11/18 09:00 09/10/18 08:59 08/15/18 09:40 Bisacodyl (Dulcolax) 10 mg DAILY RECTAL 08/11/18 09:00 09/10/18 08:59 08/15/18 09:40 Calcium Carbonate (Tums) 500 mg DAILY GT 08/11/18 09:00 09/10/18 08:59 08/15/18 09:40 Ceftriaxone Sodium 1 gm/ Dextrose 55 ml @ 110 mls/hr Q24H IVPB 08/14/18 13:00 08/21/18 12:59 08/14/18 12:13 Dextrose (Dextrose 50%) 25 ml Q30M PRN IV Hypoglycemia 08/12/18 10:20 09/11/18 10:19 Dextrose (Dextrose 50%) 50 ml Q30M PRN IV Hypoglycemia 08/12/18 10:20 09/11/18 10:19 Docusate Sodium (Colace) 100 mg DAILY GT 08/12/18 09:00 09/11/18 08:59 08/15/18 09:43 Doxazosin Mesylate (Cardura) 2 mg BEDTIME GT 08/10/18 21:00 09/09/18 20:59 08/14/18 20:47 Finasteride (Proscar) 5 mg DAILY ORAL 08/11/18 09:00 09/10/18 08:59 08/15/18 09:40 Heparin Sodium (Porcine) (Heparin 5000 units/ml) 5,000 units EVERY 12 HOURS SUBQ 08/10/18 21:00 09/09/18 20:59 08/15/18 09:45 Hydralazine HCl (Apresoline) 50 mg EVERY 8 HOURS GT 08/10/18 22:00 09/09/18 21:59 08/15/18 05:34 Insulin Aspart (NovoLOG) Q6HR SUBQ 08/13/18 00:00 09/11/18 11:29 08/15/18 05:40 Magnesium Hydroxide (Mom) 30 ml DAILY PRN GT Constipation 08/10/18 17:00 09/09/18 16:59 Metoprolol Tartrate (Lopressor) 25 mg EVERY 12 HOURS GT 08/10/18 21:00 09/09/18 20:59 08/15/18 09:48 Saccharomyces Boulardii (Florastor) 250 mg TWICE A DAY GT 08/11/18 09:00 09/10/18 08:59 08/15/18 09:41 Sitagliptin Phosphate (Januvia) 100 mg DAILY GT 08/15/18 09:00 09/10/18 08:59 08/15/18 09:44 Sucralfate (Carafate) 1 gm FOUR TIMES A DAY GT 08/10/18 18:00 09/09/18 17:59 08/15/18 09:39 Tamsulosin HCl (Flomax) 0.4 mg DAILY ORAL 08/11/18 09:00 09/10/18 08:59 08/15/18 09:44 Jesica Alegria MD Aug 15, 2018 10:20
--- NOTE | 2018-08-15 11:30 | NUR ---
NURSE NOTES: Called out report to [facility],spoke with MAILE HERNANDEZ.Updated re pt's status,IV medic,isolation,V/S,Pt to discharge with Peters cath for urinary retention,and IV heplock for Rocephin 1 gm IV x5 days.and a clamped GT.
--- NOTE | 2018-08-15 11:48 | NUR ---
NURSE NOTES: Called family member Joe Higuera,informed re pt's discharged back to [facility]Note 3[facility],verbalized understanding.
[2018-08-15 12:00] VITALS: BP 119/67
[2018-08-15] MEDS: cefTRIAXone 1 GM in D5W 55 ML IVPB SCH (13:00)
--- NOTE | 2018-08-15 13:35 | NUR ---
NURSE NOTES: [facility] here, pt discharged and out of the unit per gurlynne accompanied by ambulance personnel,asleep ,stable noted no resp distress on T-Piece 30% Fio2,to be transported to [facility].
[2018-08-15] MEDS ORDERED: Sterile Water Irrig 1000ml IRRIG ONE (15:23)
--- NOTE | 2018-08-15 20:30 | Discharge Summary ---
DATE OF ADMISSION: 08/10/2018 DATE OF DISCHARGE: 08/15/2018 ADMISSION DIAGNOSES: Sepsis, encephalopathy, stroke, diabetes, history of hypertension, history of BPH, history of chronic leukocytosis. DISCHARGE DIAGNOSES: Sepsis, encephalopathy, stroke, diabetes, history of hypertension, history of BPH, history of chronic leukocytosis, Proteus bacteremia, and UTI. HOSPITAL COURSE: The patient is a pleasant male with complaints of fevers and congestion. He was diagnosed with sepsis secondary to urinary tract infection. He grew out positive blood cultures with Proteus. Cardiology, Pulmonary, Infectious Disease consultations were all obtained. The patient had a renal ultrasound that showed no evidence of any abscess. He clinically improved with improving white blood cell count and fever. On discharge, he was stable. He will be discharged to continue 5 more days of IV antibiotic therapy. DISCHARGE MEDICATIONS: Please see discharge list discharge medications. DIET: G-tube feedings. ACTIVITIES: Ad-staci. Jeremiah Perkins M.D. DR: MIGUEL JOB#: [id number] CC:
== END 2018-08-15 15:24 | DRG 871 ==
LOC: EDBD 08:44 → EMR 09:19 → EDBEDREQ 09:37 → 2E 09:37 → EDBEDREQ 09:44 → 2E 17:08
DX: A41.9 Sepsis, unspecified organism (principal); R65.21 Severe sepsis with septic shock; J18.9 Pneumonia, unspecified organism; I50.33 Acute on chronic diastolic (congestive) heart failure; E43 Unspecified severe protein-calorie malnutrition; G93.41 Metabolic encephalopathy; N39.0 Urinary tract infection, site not specified; J96.10 Chronic respiratory failure, unspecified whether with hypoxia or hypercapnia; Z43.1 Encounter for attention to gastrostomy; E87.1 Hypo-osmolality and hyponatremia; N17.9 Acute kidney failure, unspecified; Z43.0 Encounter for attention to tracheostomy; I11.0 Hypertensive heart disease with heart failure; Z86.73 Personal history of transient ischemic attack (TIA), and cerebral infarction without residual deficits; Y95 Nosocomial condition; B96.4 Proteus (mirabilis) (morganii) as the cause of diseases classified elsewhere; I10 Essential (primary) hypertension; N40.1 Benign prostatic hyperplasia with lower urinary tract symptoms; R33.8 Other retention of urine; J44.9 Chronic obstructive pulmonary disease, unspecified; I25.10 Atherosclerotic heart disease of native coronary artery without angina pectoris; R13.10 Dysphagia, unspecified; G40.909 Epilepsy, unspecified, not intractable, without status epilepticus; E87.5 Hyperkalemia; E86.0 Dehydration; E86.1 Hypovolemia; E11.65 Type 2 diabetes mellitus with hyperglycemia
CPT/HCPCS: 36415; 71045; 76700; 80048; 80053; 81003; 82550; 82553; 82962; 83605; 83735; 83880; 84484; 85007; 85025; 86710; 87040; 87081; 87086; 87181; 93005; 94640; 94664; 94760; 96361; 96365; 96368; 99285; J1815

== ENCOUNTER 2019-10-19 02:45 | Inpatient (IN) | payer MEDICARE, OTHER ==
[2019-10-19] VITALS (8 sets, daily range): BP systolic 128–173; BP diastolic 79–90
[~2019-10-19] VITALS: Ht 177.8 cm; Wt 79.9 kg
[~2019-10-19 02:45] MED LIST changes: +AMLODIPINE BESYL5 MG GT; +CEFTRIAXON1 GM/50 ML IV; +DOCUSATE SODIU100 MG GT; +FLORASTOR250 MG GT; +HIBICLENS118 ML TP; +HYDRALAZINE HCL50 MG GT; +MILK OF MA2400 MG/10 GT; +NOVOLOG100 UNIT/4 SQ; +SUCRALFATE1 GM GT; +TRADJENTA5 MG GT; +UTI-STAT L3875 MG/31 GT
[2019-10-19] MEDS ORDERED: Mineral Oil 30ml ud ORAL ONE (03:45)
[2019-10-19 04:09] LABS: MEAN CORPUSCULAR VOLUME 88 FL (80-99); PLATELET COUNT 345 K/UL (150-450); RED BLOOD COUNT 4.67 M/UL (4.70-6.10); RED CELL DISTRIBUTION WIDTH 12.8 % (11.6-14.8); WHITE BLOOD COUNT 18.8 K/UL (4.8-10.8)
[2019-10-19 04:29] LABS: ANION GAP 8 mmol/L (5-15); BLOOD UREA NITROGEN 20 mg/dL (7-18); CARBON DIOXIDE 31 MMOL/L (21-32); CHLORIDE 104 MMOL/L (98-107); CREATININE 0.8 MG/DL (0.55-1.30); POTASSIUM 3.7 MMOL/L (3.5-5.1); SODIUM 143 MMOL/L (136-145)
[2019-10-19 04:42] LABS: ALANINE AMINOTRANSFERASE 26 U/L (12-78); ALBUMIN 2.7 G/DL (3.4-5.0); ALBUMIN/GLOBULIN RATIO 0.5 (1.0-2.7); ALKALINE PHOSPHATASE 104 U/L (46-116); ASPARTATE AMINO TRANSFERASE 14 U/L (15-37); BILIRUBIN,TOTAL 0.2 MG/DL (0.2-1.0); CKMB 1.2 NG/ML (0.0-3.6); CREATINE KINASE 68 U/L (26-308)
--- NOTE | 2019-10-19 05:01 | Emergency Room Report ---
History of Present Illness General Chief Complaint: Male Urogenital Problems Source: Medical Record, EMS (Alex Robertson MD) Present Illness HPI Patient is a 69-year-old male brought in by EMS after increased difficulty with catheter. Patient had chronic indwelling Peters catheter. This had noticed to be having decreased urine output as well as inability to be removed. 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 (Alex Robertson MD) Allergies: Coded Allergies: No Known Allergies (Unverified , 02/11/13) COVID-19 Screening Contact w/high risk pt: Yes Recent Travel to affected area: No Experienced COVID-19 symptoms?: No (Alex Robertson MD) Patient History Past Medical History: see triage record Reviewed Nursing Documentation: PMH: Agreed; PSxH: Agreed (Alex Robertson MD) Nursing Documentation-PMH Hx Cardiac Problems: Yes Hx Hypertension: Yes Hx Pacemaker: No Hx Asthma: No Hx Diabetes: Yes Hx Cancer: Yes - BPH Hx Gastrointestinal Problems: Yes - G-tube Hx Dialysis: No Hx Cerebrovascular Accident: Yes Hx Transient Ischemic Attacks: Yes Hx Dementia: Yes Hx Encephalitis: Yes Hx Seizures: Yes Hx Epilepsy: Yes Hx Paralysis: Yes - quadriplegic Hx Aphasia: Yes Hx Weakness: Yes Hx Neurologic Surgery: No Hx Brain Shunt: No (Alex Robertson MD) Review of Systems All Other Systems: limited - By mental status. (Alex Robertson MD) Physical Exam Vital Signs Date Time Temp Pulse Resp B/P (MAP) Pulse Ox O2 Delivery O2 Flow Rate FiO2 10/18/ 02:53 97.9 90 20 170/90 (116) 99 Trach Collar 5.0 General Appearance: obese, Chronically Ill Neck: tracheotomy Respiratory: lungs clear Gastrointestinal: soft Genitourinary: other - Circumcised penis with Peters catheter in position. Slight purulent drainage from urethral meatus. Musculoskeletal: decreased range of motion Neurologic: motor weakness, aphasia Skin: no rash (Alex Robertson MD) Procedures Central Line Central Line : Consent: Emergent Central Line Lumen: triple Maximal Sterile Barrier Tech: yes cap, yes mask, yes sterile gown, yes sterile gloves, yes large sterile sheet, yes hand hygiene, yes chlorhexidine prep Central Line Postion: femoral (R) Complications: none Central Line Post Position: sutured, good blood return Attempts: One Patient Tolerated: Well Complications: None (Abiel Sanders MD) Medical Decision Making Diagnostic Impression: Primary Impression: UTI (urinary tract infection) Additional Impressions: Peters catheter problem Encephalopathy acute Pneumonia ER Course Patient is a 69-year-old male sent in from nursing facility after obstructed Peters catheter. Differential diagnosis include was not limited to sepsis, pneumonia, Peters catheter malfunction due to obstruction, balloon failure among others. Because of complexity of patient's case laboratory tests and imaging studies were ordered. Patient is noted to have elevated white blood count as well as abnormalities on chest x-ray consistent with pneumonia. After consultation with urology mineral oil was placed in the balloon port of the Peters to attempt to remove any clotted material. This was unsuccessful. Dr. Mancilla was contacted for urology consult. Dr. Jeremiah Perkins was contacted for inpatient management due to elevated white count and presumed pneumonia as well as urinary infection. Laboratory Tests Test 10/19/19 03:35 10/19/19 10:50 White Blood Count 18.8 K/UL (4.8-10.8) H Red Blood Count 4.67 M/UL (4.70-6.10) L Hemoglobin 14.0 G/DL (14.2-18.0) L Hematocrit 41.0 % (42.0-52.0) L Mean Corpuscular Volume 88 FL (80-99) Mean Corpuscular Hemoglobin 29.9 PG (27.0-31.0) Mean Corpuscular Hemoglobin Concent 34.1 G/DL (32.0-36.0) Red Cell Distribution Width 12.8 % (11.6-14.8) Platelet Count 345 K/UL (150-450) Mean Platelet Volume 10.9 FL (6.5-10.1) H Neutrophils (%) (Auto) % (45.0-75.0) Lymphocytes (%) (Auto) % (20.0-45.0) Monocytes (%) (Auto) % (1.0-10.0) Eosinophils (%) (Auto) % (0.0-3.0) Basophils (%) (Auto) % (0.0-2.0) Differential Total Cells Counted 100 Neutrophils % (Manual) 65 % (45-75) Lymphocytes % (Manual) 17 % (20-45) L Monocytes % (Manual) 8 % (1-10) Eosinophils % (Manual) 9 % (0-3) H Basophils % (Manual) 1 % (0-2) Band Neutrophils 0 % (0-8) Platelet Estimate Adequate Platelet Morphology Normal Red Blood Cell Morphology Normal Sodium Level 143 MMOL/L (136-145) Potassium Level 3.7 MMOL/L (3.5-5.1) Chloride Level 104 MMOL/L (98-107) Carbon Dioxide Level 31 MMOL/L (21-32) Anion Gap 8 mmol/L (5-15) Blood Urea Nitrogen 20 mg/dL (7-18) H Creatinine 0.8 MG/DL (0.55-1.30) Estimated Glomerular Filtration Rate > 60 mL/min (>60) Glucose Level 111 MG/DL (74-106) H Lactic Acid Level 0.90 mmol/L (0.4-2.0) Calcium Level 9.0 MG/DL (8.5-10.1) Total Bilirubin 0.2 MG/DL (0.2-1.0) Aspartate Amino Transferase (AST) 14 U/L (15-37) L Alanine Aminotransferase (ALT) 26 U/L (12-78) Alkaline Phosphatase 104 U/L (46-116) Total Creatine Kinase 68 U/L (26-308) Creatine Kinase MB 1.2 NG/ML (0.0-3.6) Creatine Kinase MB Relative Index 1.7 Troponin I 0.000 ng/mL (0.000-0.056) Total Protein 7.8 G/DL (6.4-8.2) Albumin 2.7 G/DL (3.4-5.0) L Globulin 5.1 g/dL Albumin/Globulin Ratio 0.5 (1.0-2.7) L Urine Color Pale yellow Urine Appearance Cloudy Urine pH 8 (4.5-8.0) Urine Specific [place] 1.015 (1.005-1.035) Urine Protein 3+ (NEGATIVE) H Urine Glucose (UA) Negative (NEGATIVE) Urine Ketones Negative (NEGATIVE) Urine Blood 5+ (NEGATIVE) H Urine Nitrite Negative (NEGATIVE) Urine Bilirubin Negative (NEGATIVE) Urine Urobilinogen Normal MG/DL (0.0-1.0) Urine Leukocyte Esterase 3+ (NEGATIVE) H Urine RBC Tntc /HPF (0 - 0) H Urine WBC Tntc /HPF (0 - 0) H Urine Squamous Epithelial Cells Occasional /LPF Urine Bacteria Many /HPF (NONE) H (Alex Robertson MD) ER Course Patient signed out to me patient had bilateral infiltration of both arms by IV access, patient is currently contracted was unable to obtain IV access through ultrasound patient required central line in the right femoral region inserted sterilely, urology came was able to unblock the balloon and change out the Peters patient will be admitted for potential urosepsis (Abile Sanders MD) Last Vital Signs Date Time Temp Pulse Resp B/P (MAP) Pulse Ox O2 Delivery O2 Flow Rate FiO2 10/19/19 03:51 97.9 94 20 170/90 99 Trach Collar 5.0 Status: unchanged (Alex Robertson MD) Disposition: ADMITTED INPATIENT Condition: Stable Referrals: Jeremiah Perkins MD (PCP) Alex Robertson MD Oct 19, 2019 05:01 Abiel Sanders MD Oct 19, 2019 11:07
--- NOTE | 2019-10-19 05:02 | Diagnostic Imaging Report ---
EXAM: XR Chest, 1 View CLINICAL HISTORY: SOB TECHNIQUE: Frontal view of the chest. COMPARISON: Chest x-ray 08/10/2018 FINDINGS: Lungs: Bilateral perihilar streaky opacities are still present. There has been minimal improvement in aeration at the left lung base. Pleural space: No pneumothorax or pleural effusion. Heart: No change in mild cardiac enlargement. Mediastinum: Unremarkable. Bones/joints: Unremarkable. Tubes, lines and devices: Tracheostomy tube remains in place. Upper abdomen: Persistent marked right diaphragmatic elevation. IMPRESSION: Minimal improvement in aeration of the left lung base with bilateral airspace opacity still present.
[2019-10-19] MEDS ORDERED: cefTRIAXone 1 GM in NS 55 ML IVPB ONE (05:15)
[2019-10-19 11:22] LABS: APPEARANCE,URINE CLOUDY; BILIRUBIN, URINE NEGATIVE (NEGATIVE); COLOR,URINE PALE YELLOW; GLUCOSE, URINE (UA) NEGATIVE (NEGATIVE); KETONES,URINE NEGATIVE (NEGATIVE); LEUKOCYTE ESTERASE ,URINE 3+ (NEGATIVE); NITRITE,URINE NEGATIVE (NEGATIVE); PH,URINE 8 (4.5-8.0); PROTEIN,URINE 3+ (NEGATIVE); UROBILINOGEN,URINE NORMAL MG/DL (0.0-1.0)
[2019-10-19] MEDS ORDERED: Milk of Magnesia 30ml Ud GT PRN (12:00)
[2019-10-19] MEDS ORDERED: Albuterol ud Inhalation HHN PRN (12:00)
[2019-10-19] MEDS: Sucralfate 1gm tab GT SCH ×2 (13:30→18:04)
[2019-10-19] MEDS: Ascorbic Acid 500mg tab GT SCH (13:30)
[2019-10-19] MEDS: HydrALAZINE 50mg tab GT SCH ×2 (14:00→22:00)
--- NOTE | 2019-10-19 15:00 | Consultation ---
DATE OF CONSULTATION: 10/19/2019 UROLOGY CONSULTATION CONSULTING PHYSICIAN: Jose Mancilla MD. ATTENDING/ PHYSICIAN: Dr. Robertson of the emergency department. CHIEF COMPLAINT/HISTORY OF PRESENT ILLNESS: I was asked by Dr. Robertson to evaluate this 69-year-old gentleman regarding a history of clogged Peters catheter and clogged balloon port and inability to remove the same, resulting in retention. Briefly, the patient is an unfortunate gentleman with a history of previous stroke and encephalopathy. He is ventilator dependent and catheter dependent. He presented to the hospital with a history of poor catheter drainage and inability to remove or replace the catheter. The staff here tried to do so as well, but were unsuccessful. Given the above, I was asked to evaluate the patient. PAST MEDICAL HISTORY: 1. Stroke. 2. Encephalopathy. 3. Diabetes. 4. Hypertension. 5. Chronic leukocytosis. 6. BPH. 7. Urinary retention. 8. Chronic respiratory failure. PAST SURGICAL HISTORY: Tracheostomy. MEDICATIONS: Please see the chart for current medications administration details. ALLERGIES: No known drug allergies. SOCIAL HISTORY: Unremarkable for current tobacco, alcohol, or drug use. The patient lives in a nursing facility. FAMILY HISTORY: Unavailable. REVIEW OF SYSTEMS: A 14-system review of systems is unremarkable as the patient cannot cooperate with questioning. PHYSICAL EXAMINATION: GENERAL: The patient is an older gentleman, awake and alert, uncertain of orientation, no obvious distress. HEENT: NC/AT. Oropharynx clear. NECK: Supple. Tracheostomy site clean, dry, intact. CHEST: Within normal limits. ABDOMEN: Soft, obese, nontender, nondistended. EXTREMITIES: Warm and well perfused. No cyanosis, clubbing, or edema. BACK: No CVA tenderness appreciated. NEUROLOGIC: Notable for nonverbal status. The patient cannot cooperate with the remainder of the exam. GENITOURINARY: Reveals a normal male phallus. There is a Peters catheter in place with no output. There are bilateral descended testes and cord structures. No masses or tenderness to palpation. LABORATORY DATA: White blood cell count 18.8, hematocrit 41, platelets 345. Sodium 143, potassium 3.7, chloride 104, bicarbonate 31, BUN 20, creatinine 0.8, glucose 111, calcium 9.0. LFTs are within normal limits. Troponin negative. DIAGNOSTIC IMAGING: Chest x-ray with minimal improvement of of the left lung base with bilateral air space opacity still present. Bladder ultrasound done in the emergency department with inflated catheter balloon inside the bladder despite being unable to deflate it. ASSESSMENT AND PLAN: In summary, the patient is a 69-year-old gentleman with a history of multiple medical issues including previous stroke, encephalopathy, and chronic respiratory failure. He presents with a catheter that is not draining and cannot be removed. Physical exam reveals the same. Laboratory data is notable for an elevated white blood cell count. There is no relevant diagnostic imaging. Today at the bedside, I attempted to deflate the patient's balloon port although the balloon port would collapse, the catheter would not come out indicating that there was a clog in the port distal to the site of deflation. Initial attempts were made to pass the mineral oil down the port to try to dissolve the impending clog, but this was unsuccessful. I then tried to use a guidewire to clear the port of any obstructing debris and allow for drainage of the same. This was also unsuccessful. I finally used a needle to go down the port and tried to un-obstruct the channel. This was successful and water began dripping out. It was water and not urine indicating that the channel to the balloon port had been opened. I allowed this to drain out until the catheter was sufficiently deflated and then I was able to pull it out. Once this was done, I placed under some difficulty a brand new 16-[place] Peters catheter into the patient's bladder with return of yellowish pink urine output. The catheter was inflated and left to gravity drainage. It can be kept in place as necessary. The patient should have the urine sent for culture and to have any infection treated per culture results. The catheter has been kept in place as needed and changed per his regular routine in a month or so. Thank you for allowing me to participate in the care of this unfortunate gentleman. Please do not hesitate to contact me with any questions that you may further have regarding his care. I will see the patient with you as needed. Jose Mancilla M.D. DR: SAMINA/MAR JOB#: [id number] CC:
[2019-10-19] MEDS: Piperacillin/Tazobactam 3.375 GM in NS 110 ML IVPB SCH ×2 (15:24→22:00)
--- NOTE | 2019-10-19 15:59 | Diagnostic Imaging Report ---
EXAM: XR Abdomen, 2 Views CLINICAL HISTORY: LUMP TECHNIQUE: Frontal view of the abdomen/pelvis with upright view of the abdomen. COMPARISON: 10/01/16. FINDINGS: Abundant inspissated stool distending the rectum. Proximally, there is gas throughout the colon. Suspected fecal impaction. No clear free air on exam that includes the dome of the right hemidiaphragm. Right femoral vascular catheter. Peters catheter. Lumbar dextrocurvature. Chronic height loss to the leftward L3 level. Suture material again noted. IMPRESSION: Suspected fecal impaction.
[2019-10-19] MEDS: NovoLOG Insulin Flexpen SUBQ SCH ×2 (16:30→21:00)
--- NOTE | 2019-10-19 17:28 | Consultation ---
Consult Note Consult Note 69-year-old gentleman transferred with clogged Peters catheter and clogged balloon port and inability to remove the same, resulting in urinary retention. Patient chronically debilitated with past stroke and encephalopathy. He presented to the hospital with a history of poor catheter drainage and inability to remove or replace the catheter. Patient also admitted for possible sepsis and further intervention PAST MEDICAL HISTORY: 1. Stroke. 2. Functional Quad 3. Diabetes. 4. Hypertension. 5. Chronic leukocytosis. 6. BPH. 7. Urinary retention. 8. Chronic respiratory failure. 9. Trach 10. GT MEDICATIONS: reviewed ALLERGIES: No known drug allergies. SOCIAL HISTORY: SNF patient and fully bend bound FAMILY HISTORY: Unavailable. REVIEW OF SYSTEMS: unable PHYSICAL EXAMINATION: GENERAL: bed bound, no obvious distress. HEENT: NC/AT. Oropharynx clear. NECK: Supple. Tracheostomy site clean, dry, intact. CHEST: CTA with occasional rhonchi ABDOMEN: Soft, obese, nontender, nondistended. GT EXTREMITIES: no CCE NEUROLOGIC: poor LOC Labs Test 10/19/19 03:35 10/19/19 10:50 White Blood Count 18.8 K/UL (4.8-10.8) Red Blood Count 4.67 M/UL (4.70-6.10) Hemoglobin 14.0 G/DL (14.2-18.0) Hematocrit 41.0 % (42.0-52.0) Mean Corpuscular Volume 88 FL (80-99) Mean Corpuscular Hemoglobin 29.9 PG (27.0-31.0) Mean Corpuscular Hemoglobin Concent 34.1 G/DL (32.0-36.0) Red Cell Distribution Width 12.8 % (11.6-14.8) Platelet Count 345 K/UL (150-450) Mean Platelet Volume 10.9 FL (6.5-10.1) Neutrophils (%) (Auto) % (45.0-75.0) Lymphocytes (%) (Auto) % (20.0-45.0) Monocytes (%) (Auto) % (1.0-10.0) Eosinophils (%) (Auto) % (0.0-3.0) Basophils (%) (Auto) % (0.0-2.0) Differential Total Cells Counted 100 Neutrophils % (Manual) 65 % (45-75) Lymphocytes % (Manual) 17 % (20-45) Monocytes % (Manual) 8 % (1-10) Eosinophils % (Manual) 9 % (0-3) Basophils % (Manual) 1 % (0-2) Band Neutrophils 0 % (0-8) Platelet Estimate Adequate Platelet Morphology Normal Red Blood Cell Morphology Normal Sodium Level 143 MMOL/L (136-145) Potassium Level 3.7 MMOL/L (3.5-5.1) Chloride Level 104 MMOL/L (98-107) Carbon Dioxide Level 31 MMOL/L (21-32) Anion Gap 8 mmol/L (5-15) Blood Urea Nitrogen 20 mg/dL (7-18) Creatinine 0.8 MG/DL (0.55-1.30) Estimat Glomerular Filtration Rate > 60 mL/min (>60) Glucose Level 111 MG/DL (74-106) Lactic Acid Level 0.90 mmol/L (0.4-2.0) Calcium Level 9.0 MG/DL (8.5-10.1) Total Bilirubin 0.2 MG/DL (0.2-1.0) Aspartate Amino Transf (AST/SGOT) 14 U/L (15-37) Alanine Aminotransferase (ALT/SGPT) 26 U/L (12-78) Alkaline Phosphatase 104 U/L (46-116) Total Creatine Kinase 68 U/L (26-308) Creatine Kinase MB 1.2 NG/ML (0.0-3.6) Creatine Kinase MB Relative Index 1.7 Troponin I 0.000 ng/mL (0.000-0.056) Total Protein 7.8 G/DL (6.4-8.2) Albumin 2.7 G/DL (3.4-5.0) Globulin 5.1 g/dL Albumin/Globulin Ratio 0.5 (1.0-2.7) Urine Color Pale yellow Urine Appearance Cloudy Urine pH 8 (4.5-8.0) Urine Specific [place] 1.015 (1.005-1.035) Urine Protein 3+ (NEGATIVE) Urine Glucose (UA) Negative (NEGATIVE) Urine Ketones Negative (NEGATIVE) Urine Blood 5+ (NEGATIVE) Urine Nitrite Negative (NEGATIVE) Urine Bilirubin Negative (NEGATIVE) Urine Urobilinogen Normal MG/DL (0.0-1.0) Urine Leukocyte Esterase 3+ (NEGATIVE) Urine RBC Tntc /HPF (0 - 0) Urine WBC Tntc /HPF (0 - 0) Urine Squamous Epithelial Cells Occasional /LPF Urine Bacteria Many /HPF (NONE) IMPRESSION Respiratory failure trach possible UTI possible sepsis urinary retention functional Quad CVA PLAN respiratory care trach care oxygen urology followup maintain meds as is impression, plan, and exam edited and reviewed in detail care discussed with Silver Correa MD Oct 19, 2019 17:28
--- NOTE | 2019-10-19 17:28 | Pulmonology Progress Note ---
Subjective Allergies: Coded Allergies: No Known Allergies (Unverified , 02/11/13) Objective Last 24 Hour Vital Signs Date Time Temp Pulse Resp B/P (MAP) Pulse Ox O2 Delivery O2 Flow Rate FiO2 10/19/19 16:00 100.2 102 19 128/79 (95) 99 10/19/19 13:49 100 T-Piece 8.0 35 10/19/19 12:30 98.2 99 24 144/81 (102) 99 10/19/19 11:30 99.2 107 24 142/87 100 T-piece 5.0 10/19/19 11:12 118 145/92 10/19/19 09:44 132 34 173/84 99 Trach Collar 5.0 10/19/19 07:10 116 24 173/84 100 Trach Collar 5.0 10/19/19 05:43 98.1 103 26 143/86 100 Trach Collar 5.0 10/19/19 03:51 97.9 94 20 170/90 99 Trach Collar 5.0 10/19/19 02:53 97.9 90 20 170/90 (116) 99 Trach Collar 5.0 Intake and Output 10/18/19 10/19/19 19:00 07:00 Intake Total 55 ml Balance 55 ml Intake IV Total 55 ml Microbiology Date/Time Source Procedure Growth Status 10/19/19 05:30 Rectum Received Laboratory Tests 10/19/19 03:35: White Blood Count 18.8H, Red Blood Count 4.67L, Hemoglobin 14.0L, Hematocrit 41.0L, Mean Corpuscular Volume 88, Mean Corpuscular Hemoglobin 29.9, Mean Corpuscular Hemoglobin Concent 34.1, Red Cell Distribution Width 12.8, Platelet Count 345, Mean Platelet Volume 10.9H, Neutrophils (%) (Auto) , Lymphocytes (%) (Auto) , Monocytes (%) (Auto) , Eosinophils (%) (Auto) , Basophils (%) (Auto) , Differential Total Cells Counted 100, Neutrophils % (Manual) 65, Lymphocytes % ( Manual) 17L, Monocytes % (Manual) 8, Eosinophils % (Manual) 9H, Basophils % ( Manual) 1, Band Neutrophils 0, Platelet Estimate Adequate, Platelet Morphology Normal, Red Blood Cell Morphology Normal, Sodium Level 143, Potassium Level 3.7 , Chloride Level 104, Carbon Dioxide Level 31, Anion Gap 8, Blood Urea Nitrogen 20H, Creatinine 0.8, Estimat Glomerular Filtration Rate > 60, Glucose Level 111H , Lactic Acid Level 0.90, Calcium Level 9.0, Total Bilirubin 0.2, Aspartate Amino Transf (AST/SGOT) 14L, Alanine Aminotransferase (ALT/SGPT) 26, Alkaline Phosphatase 104, Total Creatine Kinase 68, Creatine Kinase MB 1.2, Creatine Kinase MB Relative Index 1.7, Troponin I 0.000, Total Protein 7.8, Albumin 2.7L , Globulin 5.1, Albumin/Globulin Ratio 0.5L 10/19/19 10:50: Urine Color Pale yellow, Urine Appearance Cloudy, Urine pH 8, Urine Specific [place] 1.015, Urine Protein 3+H, Urine Glucose (UA) Negative, Urine Ketones Negative, Urine Blood 5+H, Urine Nitrite Negative, Urine Bilirubin Negative, Urine Urobilinogen Normal, Urine Leukocyte Esterase 3+H, Urine RBC TntcH, Urine WBC TntcH, Urine Squamous Epithelial Cells Occasional, Urine Bacteria ManyH Current Medications Medications (Trade) Dose Ordered Sig/Magda Route PRN Reason Start Time Stop Time Status Last Admin Dose Admin Acetaminophen (Tylenol) 650 mg Q4H PRN GT For Pain/FEVER 10/19/19 12:00 11/18/19 11:59 Albuterol Sulfate (Proventil) 2.5 mg Q6H PRN HHN Shortness of Breath 10/19/19 12:00 10/24/19 11:59 Amlodipine Besylate (Norvasc) 5 mg BID GT 10/19/19 18:00 11/18/19 17:59 Ascorbic Acid (Vitamin C) 500 mg DAILY GT 10/19/19 13:30 11/18/19 13:29 Bisacodyl (Dulcolax) 10 mg DAILY RECTAL 10/19/19 13:30 01/17/20 13:29 Calcium Carbonate (Tums) 500 mg DAILY GT 10/20/19 09:00 01/18/20 08:59 Clonidine HCl (Catapres Tab) 0.1 mg Q6HR GT 10/19/19 13:30 01/17/20 13:29 Dextrose (Dextrose 50%) 25 ml Q30M PRN IV Hypoglycemia 10/19/19 12:00 01/17/20 11:59 Dextrose (Dextrose 50%) 50 ml Q30M PRN IV Hypoglycemia 10/19/19 12:00 01/17/20 11:59 Docusate Sodium (Colace) 100 mg DAILY ORAL 10/20/19 09:00 11/19/19 08:59 Doxazosin Mesylate (Cardura) 2 mg BEDTIME GT 10/19/19 21:00 11/18/19 20:59 Finasteride (Proscar) 5 mg DAILY ORAL 10/20/19 09:00 01/18/20 08:59 Heparin Sodium (Porcine) (Heparin 5000 units/ml) 5,000 units EVERY 12 HOURS SUBQ 10/19/19 21:00 12/03/19 20:59 Hydralazine HCl (Apresoline) 50 mg EVERY 8 HOURS GT 10/19/19 14:00 01/17/20 13:59 Insulin Aspart (NovoLOG) BEFORE MEALS AND HS SUBQ 10/19/19 16:30 01/17/20 16:29 Insulin Detemir (Levemir) 35 units BID SUBQ 10/19/19 18:00 01/17/20 17:59 Magnesium Hydroxide (Mom) 30 ml DAILY PRN GT Constipation 10/19/19 12:00 11/18/19 11:59 Metoprolol Tartrate (Lopressor) 25 mg EVERY 12 HOURS GT 10/19/19 21:00 01/17/20 20:59 Piperacillin Sod/ Tazobactam Sod 3.375 gm/Sodium Chloride 110 ml @ 27.5 mls/hr EVERY 8 HOURS IVPB 10/19/19 14:00 10/24/19 13:59 10/19/19 15:24 Saccharomyces Boulardii (Florastor) 250 mg TWICE A DAY GT 10/19/19 18:00 01/17/20 17:59 Sitagliptin Phosphate (Januvia) 100 mg DAILY GT 10/20/19 09:00 11/19/19 08:59 Sucralfate (Carafate) 1 gm Q6HR GT 10/19/19 13:30 01/17/20 13:29 Tamsulosin HCl (Flomax) 0.4 mg DAILY ORAL 10/20/19 09:00 11/19/19 08:59 Silver Diaz MD Oct 19, 2019 17:28
[2019-10-19] MEDS: Levemir Flexpen SUBQ SCH (18:00)
[2019-10-19] MEDS: Acetaminophen 650mg/20.3ml GT PRN (18:05)
[2019-10-19] MEDS: Heparin 5000 units/ml inj SUBQ SCH (21:00)
[2019-10-19] MEDS ORDERED: Fleet's Enema 133ml RECTAL ONE (21:00)
[2019-10-19] MEDS: Doxazosin 1mg Tab GT SCH (21:54)
[2019-10-20] VITALS: BP 113/55
[2019-10-20] MEDS: Sucralfate 1gm tab GT SCH ×5 (00:41→23:24)
[2019-10-20] MEDS: D5NS 1,000 ML IV SCH ×2 (00:41→14:23)
[2019-10-20 04:00] VITALS: BP 130/69
[2019-10-20] MEDS: HydrALAZINE 50mg tab GT SCH ×3 (06:26→22:00)
[2019-10-20] MEDS: Piperacillin/Tazobactam 3.375 GM in NS 110 ML IVPB SCH ×3 (06:26→23:14)
[2019-10-20] MEDS: NovoLOG Insulin Flexpen SUBQ SCH ×4 (06:59→21:00)
[2019-10-20 08:00] VITALS: BP 129/73
[2019-10-20] MEDS: Docusate 100mg cap ORAL SCH (09:46)
[2019-10-20] MEDS: Tums 500mg GT SCH (09:47)
[2019-10-20] MEDS: Tamsulosin 0.4mg cap ORAL SCH (09:47)
[2019-10-20] MEDS: Ascorbic Acid 500mg tab GT SCH (09:49)
[2019-10-20] MEDS: Heparin 5000 units/ml inj SUBQ SCH ×2 (09:49→23:19)
[2019-10-20] MEDS: Levemir Flexpen SUBQ SCH ×2 (09:50→17:40)
--- NOTE | 2019-10-20 10:23 | Pulmonology Progress Note ---
Assessment/Plan Assessment/Plan IMPRESSION Respiratory failure trach possible UTI possible sepsis urinary retention functional Quad CVA sepsis BCX+ PLAN respiratory care trach care oxygen IV antibiotics ID to see urology followup maintain meds as is aspiration precautions SNF meds impression, plan, and exam edited and reviewed in detail care discussed with RN Subjective ROS Limited/Unobtainable: Yes Allergies: Coded Allergies: No Known Allergies (Unverified , 02/11/13) Subjective bcx+ antibiotics started respiratory with some congestion Objective Last 24 Hour Vital Signs Date Time Temp Pulse Resp B/P (MAP) Pulse Ox O2 Delivery O2 Flow Rate FiO2 10/20/19 09:47 100 129/73 10/20/19 09:47 100 129/73 10/20/19 09:45 100 T-Piece 8.0 30 10/20/19 08:00 98.8 100 20 129/73 (91) 97 10/20/19 06:26 130/69 10/20/19 06:26 130/60 10/20/19 04:00 98.9 98 21 130/69 (89) 95 10/20/19 00:44 100 T-Piece 8.0 35 10/20/19 00:00 113/56 10/20/19 00:00 98.4 96 22 113/55 (74) 93 10/19/19 22:00 113/56 10/19/19 21:53 102 160/90 10/19/19 21:00 T-piece 9.0 10/19/19 20:03 102 20 98 T-Piece 8.0 35 10/19/19 20:02 99 T-Piece 8.0 35 10/19/19 20:00 98.4 112 22 160/90 (113) 95 10/19/19 19:00 98.4 10/19/19 18:04 102 128/79 10/19/19 16:00 100.2 102 19 128/79 (95) 99 10/19/19 13:49 100 T-Piece 8.0 35 10/19/19 12:30 98.2 99 24 144/81 (102) 99 10/19/19 12:02 T-Piece 5.0 10/19/19 11:43 99.3 106 24 148/82 99 T-piece 5.0 10/19/19 11:30 99.2 107 24 142/87 100 T-piece 5.0 10/19/19 11:12 118 145/92 Intake and Output 10/19/19 10/20/19 19:00 07:00 Output Total 550 ml 1000 ml Balance -550 ml -1000 ml Output Urine Total 550 ml 1000 ml # Bowel Movements 3 Objective WDWN NAD reduced breath sounds bilaterally without rhonchi or wheeze trach [id number] without MRG NABS nontender no HSM; GT no CCE poor ROM and LOC krishnan reviewed and edited Microbiology Date/Time Source Procedure Growth Status 10/19/19 03:50 Blood Blood Culture - Preliminary Gram Positive Cocci Gram Negative Esau Resulted 10/19/19 03:35 Blood Blood Culture - Preliminary Gram Positive Cocci Gram Negative Esau Resulted 10/19/19 10:50 Urine,Clean Catch Urine Culture - Preliminary Gram Negative Esau Resulted 10/19/19 05:30 Rectum Received Laboratory Tests 10/19/19 10:50: Urine Color Pale yellow, Urine Appearance Cloudy, Urine pH 8, Urine Specific [place] 1.015, Urine Protein 3+H, Urine Glucose (UA) Negative, Urine Ketones Negative, Urine Blood 5+H, Urine Nitrite Negative, Urine Bilirubin Negative, Urine Urobilinogen Normal, Urine Leukocyte Esterase 3+H, Urine RBC TntcH, Urine WBC TntcH, Urine Squamous Epithelial Cells Occasional, Urine Bacteria ManyH Current Medications Medications (Trade) Dose Ordered Sig/Magda Route PRN Reason Start Time Stop Time Status Last Admin Dose Admin Acetaminophen (Tylenol) 650 mg Q4H PRN GT For Pain/FEVER 10/19/19 12:00 11/18/19 11:59 10/19/19 18:05 Albuterol Sulfate (Proventil) 2.5 mg Q6H PRN HHN Shortness of Breath 10/19/19 12:00 10/24/19 11:59 Amlodipine Besylate (Norvasc) 5 mg BID GT 10/19/19 18:00 11/18/19 17:59 10/20/19 09:47 Ascorbic Acid (Vitamin C) 500 mg DAILY GT 10/19/19 13:30 11/18/19 13:29 10/20/19 09:49 Bisacodyl (Dulcolax) 10 mg DAILY RECTAL 10/19/19 13:30 01/17/20 13:29 10/20/19 09:47 Calcium Carbonate (Tums) 500 mg DAILY GT 10/20/19 09:00 01/18/20 08:59 10/20/19 09:47 Clonidine HCl (Catapres Tab) 0.1 mg Q6HR GT 10/19/19 13:30 01/17/20 13:29 10/20/19 06:26 Dextrose (Dextrose 50%) 25 ml Q30M PRN IV Hypoglycemia 10/19/19 12:00 01/17/20 11:59 Dextrose (Dextrose 50%) 50 ml Q30M PRN IV Hypoglycemia 10/19/19 12:00 01/17/20 11:59 Dextrose/Sodium Chloride 1,000 ml @ 75 mls/hr [id number] IV 10/20/19 00:30 11/19/19 00:29 10/20/19 00:41 Docusate Sodium (Colace) 100 mg DAILY ORAL 10/20/19 09:00 11/19/19 08:59 10/20/19 09:46 Doxazosin Mesylate (Cardura) 2 mg BEDTIME GT 10/19/19 21:00 11/18/19 20:59 10/19/19 21:54 Finasteride (Proscar) 5 mg DAILY ORAL 10/20/19 09:00 01/18/20 08:59 10/20/19 09:47 Heparin Sodium (Porcine) (Heparin 5000 units/ml) 5,000 units EVERY 12 HOURS SUBQ 10/19/19 21:00 12/03/19 20:59 10/20/19 09:49 Hydralazine HCl (Apresoline) 50 mg EVERY 8 HOURS GT 10/19/19 14:00 01/17/20 13:59 10/20/19 06:26 Insulin Aspart (NovoLOG) BEFORE MEALS AND HS SUBQ 10/19/19 16:30 01/17/20 16:29 10/20/19 06:59 Insulin Detemir (Levemir) 35 units BID SUBQ 10/19/19 18:00 01/17/20 17:59 10/20/19 09:50 Magnesium Hydroxide (Mom) 30 ml DAILY PRN GT Constipation 10/19/19 12:00 11/18/19 11:59 Metoprolol Tartrate (Lopressor) 25 mg EVERY 12 HOURS GT 10/19/19 21:00 01/17/20 20:59 10/20/19 09:47 Piperacillin Sod/ Tazobactam Sod 3.375 gm/Sodium Chloride 110 ml @ 27.5 mls/hr EVERY 8 HOURS IVPB 10/19/19 14:00 10/24/19 13:59 10/20/19 06:26 Saccharomyces Boulardii (Florastor) 250 mg TWICE A DAY GT 10/19/19 18:00 01/17/20 17:59 10/20/19 09:46 Sitagliptin Phosphate (Januvia) 100 mg DAILY GT 10/20/19 09:00 11/19/19 08:59 10/20/19 09:47 Sucralfate (Carafate) 1 gm Q6HR GT 10/19/19 13:30 01/17/20 13:29 10/20/19 06:26 Tamsulosin HCl (Flomax) 0.4 mg DAILY ORAL 10/20/19 09:00 11/19/19 08:59 10/20/19 09:47 Vancomycin HCl (Vanco rx to dose) 1 ea DAILY PRN MISC Per rx protocol 10/20/19 08:00 11/19/19 07:59 Vancomycin HCl 1 gm/Sodium Chloride 275 ml @ 183.708 mls/hr Q12HR IVPB 10/20/19 09:00 10/25/19 08:59 Silver Diaz MD Oct 20, 2019 10:23
[2019-10-20] MEDS: Vancomycin 1 GM in NS 275 ML IVPB SCH ×2 (11:50→23:14)
[2019-10-20 12:00] VITALS: BP 133/77
--- NOTE | 2019-10-20 12:15 | History and Physical Report ---
DATE OF ADMISSION: 10/19/2019 CHIEF COMPLAINT: Sepsis and UTI. HISTORY OF PRESENT ILLNESS: The patient is an unfortunate 69-year-old male well known to me, who currently resides at a subacute senior living facility. He is trach dependent, off the ventilator. He is nonverbal at baseline. He has a history of encephalopathy, stroke, diabetes, hypertension, BPH. He has a history of chronic leukocytosis. He was transferred with complaints of fevers from the senior living facility. On evaluation in the emergency room, the patient had evidence of urinary tract infection. Blood cultures are since returned back positive. The patient has been pancultured, has been started on broad-spectrum IV antibiotics. He is now admitted for further evaluation and care. The patient is unable to provide any history as he is nonverbal. PAST MEDICAL HISTORY: As above. PAST SURGICAL HISTORY: Includes a history of trach and a G-tube. CURRENT MEDICATIONS: Reconciled and reviewed. ALLERGIES: None. FAMILY HISTORY: None. SOCIAL HISTORY: There is no known history of tobacco, ethanol, or drugs. REVIEW OF SYSTEMS: From the patient is unobtainable as he is nonverbal. PHYSICAL EXAMINATION: VITAL SIGNS: Temperature 98.4, pulse 102, respirations 20, and blood pressure 160/90. GENERAL: The patient is a chronically ill-appearing male, in no apparent distress. He is nonverbal. HEENT: His mucous membranes are moist. NECK: Supple. Trach was midline without any erythema or discharge. There is no adenopathy noted. HEART: Regular rate and rhythm without murmurs, rubs, or gallops. LUNGS: Clear to auscultation bilaterally. No wheezes or rales. ABDOMEN: Soft, nontender, nondistended. G-tube site was clean and intact. EXTREMITIES: No clubbing or cyanosis. NEUROLOGIC: The patient is quadriplegic, does not respond to any commands, does not open his eyes. Reflexes are 1+. SKIN: Without rashes. PERTINENT DATA: White count was 19,000, hemoglobin 14. Sodium 143, potassium 3.7, BUN 20, creatinine is 0.8. UA showed too numerous to count wbc's. Chest x-ray showed bilateral airspace opacities. ASSESSMENT: This is an unfortunate elderly male with a history of encephalopathy, chronic respiratory failure, diabetes, and hypertension, admitted with complaints of sepsis secondary to UTI, cannot rule out underlying pneumonia. He has a history of hypertension, diabetes, BPH, chronic leukocytosis. PLAN: IV antibiotics. Follow up cultures. ID and Pulmonary follow ups will be obtained. Continue G-tube feeds. The patient will be given a bowel regimen to be turned every 2 hours. Chronic care will be discussed with the patient's and son. Jeremiah Perkins M.D. DR: YUMIKO JOB#: [id number] CC:
[2019-10-20 16:00] VITALS: BP 120/69
[2019-10-20 20:00] VITALS: BP 115/58
--- NOTE | 2019-10-20 22:15 | Consultation ---
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 admitted for care and management. seen by urology and new krishnan placed. noted to have abnormal labs, kub with impaction, and sacral decubitus ulcer surgery called to evaluate and assist with care. Allergies: Coded Allergies: No Known Allergies (Unverified , 02/11/13) COVID-19 Screening Contact w/high risk pt: Yes Recent Travel to affected area: No Experienced COVID-19 symptoms?: No Medication History Scheduled Amikacin Sulfate (Amikin), 500 MG INH Q12HR@0900,2100 Amlodipine Besylate* (Amlodipine Besylate*), 5 MG GT BID, (Reported) Ascorbic Acid* (Vitamin C*), 500 MG GT DAILY, (Reported) Bisacodyl (Dulcolax), 10 MG RC DAILY, (Reported) Calcium Carbonate (Calcium), 500 MG GT DAILY, (Reported) Ceftriaxone Na/Dextrose,Iso (Ceftriaxone 1 Gm Piggyback), 1 GM IV DAILY Chlorhexidine Gluconate* (Hibiclens*), 15 ML TP EVERY 12 HOURS, (Reported) Clonidine Hcl* (Catapres*), 0.1 MG GT q6h, (Reported) Cran/Vitc/Mannose/Inulin/Brom (Uti-Stat Liquid), 30 ML GT BID, (Reported) Docusate Sodium* (Docusate Sodium*), 100 MG GT DAILY, (Reported) Doxazosin Mesylate* (Cardura*), 2 MG GT BEDTIME, (Reported) Finasteride* (Proscar*), 5 MG GT DAILY, (Reported) Finasteride* (Proscar*), 5 MG GT DAILY, (Reported) Heparin Sod (Porcine) (Heparin Sodium*), 5,000 UNITS SUBQ EVERY 12 HOURS Hydralazine Hcl* (Hydralazine Hcl*), 50 MG GT EVERY 8 HOURS, (Reported) Insulin Aspart (Novolog Flexpen), 0 UNITS SUBQ Q6HR Insulin Detemir (Levemir), 70 SUBQ EVERY 12 HOURS, (Reported) Insulin Detemir (Levemir), 35 UNITS SUBQ EVERY 12 HOURS, (Reported) Lactobacillus Acidophilus (Acidophilus), 1 EACH GT DAILY, (Reported) Linagliptin (Tradjenta), 5 MG GT DAILY, (Reported) Metoprolol Tartrate (Metoprolol Tartrate), 25 MG GT EVERY 12 HOURS Multivit &Minerals/Ferrous Fum (Complete Multivit-Mineral Liq), 9 MG GT DAILY, ( Reported) Na Phos,M-B/Na Phos,Di-Ba* (Fleet Enema*), 133 ML RECTAL q2days, (Reported) Saccharomyces Boulardii (Florastor*), 250 MG GT TWICE A DAY, (Reported) Saccharomyces Boulardii (Florastor*), 250 MG GT TWICE A DAY, (Reported) Sitagliptin* (Januvia*), 100 MG GT DAILY, (Reported) Sucralfate* (Carafate*), 1 GM GT FOUR TIMES A DAY, (Reported) Sucralfate* (Carafate*), 1 GM GT FOUR TIMES A DAY, (Reported) Tamsulosin HCl (Flomax), 0.4 MG GT DAILY, (Reported) Scheduled PRN Acetaminophen (Acetaminophen), 650 MG GT EVERY 4 HOURS PRN for Prn Headache/ Temp > 101, (Reported) Albuterol Sulfate* (Albuterol Sulfate Hhn*), 3 ML INH Q6H PRN for Shortness of Breath, (Reported) Bisacodyl (Dulcolax), 10 MG RC DAILY PRN for Constipation, (Reported) Ipratropium Mongo (Atrovent Hfa), 12.9 GM IH Q6HR PRN for Shortness of Breath, (Reported) Magnesium Hydroxide* (Milk Of Magnesia*), 30 ML GT DAILY PRN for Constipation, ( Reported) Magnesium Hydroxide* (Milk Of Magnesia*), 30 ML GT DAILY PRN for Constipation, ( Reported) Miscellaneous Medications Dextrose 50 % in Water (Dextrose 50%-Water IV Soln), 0 IV, (Reported) Insulin Aspart (Novolog), 100 UNIT SQ, (Reported) Patient History Limited by: medical condition History Provided By: Patient, Medical Record, PMD Healthcare decision maker Resuscitation status Full Code Advanced Directive on File Past Medical/Surgical History Past Medical/Surgical History: (1) 19979 (2) Failure to thrive (3) Leukocytosis (4) Hypernatremia (5) Septicemia (6) tachycardia (7) Pneumonia (8) Bowel obstruction (9) Bowel obstruction (10) Sepsis (11) SBO (small bowel obstruction) (12) Pneumonia (13) Acute urinary tract infection (14) Septicemia (15) Urosepsis (16) Hematuria (17) Hematuria (18) Sepsis (19) Pneumonia (20) G tube feedings (21) Leukocytosis (22) Respiratory failure, chronic (23) Septic shock (24) Diabetes mellitus out of control (25) Acute urinary tract infection (26) Lactic acidosis (27) Septicemia (28) Urosepsis (29) Encephalopathy chronic (30) UTI (urinary tract infection) (31) Pneumonia (32) Encephalopathy acute (33) Krishnan catheter problem Review of Systems Review of Symptoms General ROS: no weight loss or fever Psychological ROS: no depression or mood changes, no memory loss Ophthalmic ROS: no visual changes or eye irritation ENT ROS: no nasal congestion, hearing loss, dizziness Allergy and Immunology ROS: no allergic symptoms or urticaria Hematological and Lymphatic ROS: no swollen glands, unusual bleeding or bruising Endocrine ROS: no polyuria, polydipsia, weight changes, temperature intolerance Respiratory ROS: no cough, shortness of breath, or wheezing Cardiovascular ROS: no chest pain or dyspnea on exertion Gastrointestinal ROS: denies abdominal pain, bright red blood in stool. Musculoskeletal ROS: no myalgias or arthralgias Neurological ROS: no TIA or stroke symptoms Dermatological ROS: no new or changing skin lesions, rashes or pruritis Physical Exam Physical Exam General appearance: alert, cooperative, no distress, appears stated age Head: Normocephalic, without obvious abnormality, atraumatic Eyes: conjunctivae/corneas clear. PERRL, EOM's intact. Fundi benign Throat: Lips, mucosa, and tongue normal. Teeth and gums normal Neck: supple, symmetrical, trachea midline, no adenopathy, thyroid: not enlarged, symmetric, no tenderness/mass/nodules, no carotid bruit and no JVD Lungs: clear to auscultation bilaterally Heart: regular rate and rhythm, S1, S2 normal, no murmur, click, rub or gallop Abdomen: soft, non-tender. Bowel sounds normal. No masses, no organomegaly Extremities: extremities normal, atraumatic, no cyanosis or edema Pulses: 2+ and symmetric Skin: Skin see below Neurologic: Grossly normal Last 24 Hour Vital Signs Date Time Temp Pulse Resp B/P (MAP) Pulse Ox O2 Delivery O2 Flow Rate FiO2 10/20/19 19:59 98 T-Piece 8.0 30 10/20/19 19:59 88 20 98 T-Piece 8.0 30 10/20/19 17:41 133/77 10/20/19 17:40 98 133/77 10/20/19 16:00 98.4 86 20 120/69 (86) 98 10/20/19 14:23 133/77 10/20/19 14:23 133/77 10/20/19 14:06 100 T-Piece 8.0 30 10/20/19 12:00 99.0 98 22 133/77 (95) 98 10/20/19 09:49 100 20 97 T-Piece 8.0 30 10/20/19 09:47 100 129/73 10/20/19 09:47 100 129/73 10/20/19 09:45 100 T-Piece 8.0 30 10/20/19 09:00 T-piece 9.0 10/20/19 08:00 98.8 100 20 129/73 (91) 97 10/20/19 06:26 130/69 10/20/19 06:26 130/60 10/20/19 04:00 98.9 98 21 130/69 (89) 95 10/20/19 00:44 100 T-Piece 8.0 30 10/20/19 00:00 113/56 10/20/19 00:00 98.4 96 22 113/55 (74) 93 Intake and Output 10/19/19 10/20/19 19:00 07:00 Intake Total 75 ml Output Total 550 ml 1000 ml Balance -550 ml -925 ml Intake IV Total 75 ml Output Urine Total 550 ml 1000 ml # Bowel Movements 3 Height (Feet): 5 Height (Inches): 10.00 Weight (Pounds): 190 Medications Current Medications Medications (Trade) Dose Ordered Sig/Magda Route PRN Reason Start Time Stop Time Status Last Admin Dose Admin Acetaminophen (Tylenol) 650 mg Q4H PRN GT For Pain/FEVER 10/19/19 12:00 11/18/19 11:59 10/19/19 18:05 Albuterol Sulfate (Proventil) 2.5 mg Q6H PRN HHN Shortness of Breath 10/19/19 12:00 10/24/19 11:59 Amlodipine Besylate (Norvasc) 5 mg BID GT 10/19/19 18:00 11/18/19 17:59 10/20/19 17:40 Ascorbic Acid (Vitamin C) 500 mg DAILY GT 10/19/19 13:30 11/18/19 13:29 10/20/19 09:49 Bisacodyl (Dulcolax) 10 mg DAILY RECTAL 10/19/19 13:30 01/17/20 13:29 10/20/19 09:47 Calcium Carbonate (Tums) 500 mg DAILY GT 10/20/19 09:00 01/18/20 08:59 10/20/19 09:47 Clonidine HCl (Catapres Tab) 0.1 mg Q6HR GT 10/19/19 13:30 01/17/20 13:29 10/20/19 17:41 Dextrose (Dextrose 50%) 25 ml Q30M PRN IV Hypoglycemia 10/19/19 12:00 01/17/20 11:59 Dextrose (Dextrose 50%) 50 ml Q30M PRN IV Hypoglycemia 10/19/19 12:00 01/17/20 11:59 Dextrose/Sodium Chloride 1,000 ml @ 75 mls/hr [id number] IV 10/20/19 00:30 11/19/19 00:29 10/20/19 14:23 Docusate Sodium (Colace) 100 mg DAILY ORAL 10/20/19 09:00 11/19/19 08:59 10/20/19 09:46 Doxazosin Mesylate (Cardura) 2 mg BEDTIME GT 10/19/19 21:00 11/18/19 20:59 10/19/19 21:54 Finasteride (Proscar) 5 mg DAILY ORAL 10/20/19 09:00 01/18/20 08:59 10/20/19 09:47 Heparin Sodium (Porcine) (Heparin 5000 units/ml) 5,000 units EVERY 12 HOURS SUBQ 10/19/19 21:00 12/03/19 20:59 10/20/19 09:49 Hydralazine HCl (Apresoline) 50 mg EVERY 8 HOURS GT 10/19/19 14:00 01/17/20 13:59 10/20/19 14:23 Insulin Aspart (NovoLOG) BEFORE MEALS AND HS SUBQ 10/19/19 16:30 01/17/20 16:29 10/20/19 11:58 Insulin Detemir (Levemir) 35 units BID SUBQ 10/19/19 18:00 01/17/20 17:59 10/20/19 17:40 Magnesium Hydroxide (Mom) 30 ml DAILY PRN GT Constipation 10/19/19 12:00 11/18/19 11:59 Metoprolol Tartrate (Lopressor) 25 mg EVERY 12 HOURS GT 10/19/19 21:00 01/17/20 20:59 10/20/19 09:47 Piperacillin Sod/ Tazobactam Sod 3.375 gm/Sodium Chloride 110 ml @ 27.5 mls/hr EVERY 8 HOURS IVPB 10/19/19 14:00 10/24/19 13:59 10/20/19 14:23 Saccharomyces Boulardii (Florastor) 250 mg TWICE A DAY GT 10/19/19 18:00 01/17/20 17:59 10/20/19 17:40 Sitagliptin Phosphate (Januvia) 100 mg DAILY GT 10/20/19 09:00 11/19/19 08:59 10/20/19 09:47 Sucralfate (Carafate) 1 gm Q6HR GT 10/19/19 13:30 01/17/20 13:29 10/20/19 17:40 Tamsulosin HCl (Flomax) 0.4 mg DAILY ORAL 10/20/19 09:00 11/19/19 08:59 10/20/19 09:47 Vancomycin HCl (Vanco rx to dose) 1 ea DAILY PRN MISC Per rx protocol 10/20/19 08:00 11/19/19 07:59 Vancomycin HCl 1 gm/Sodium Chloride 275 ml @ 183.708 mls/hr Q12HR IVPB 10/20/19 09:00 10/25/19 08:59 10/20/19 11:50 Assessment/Plan Problem List: (1) Deep tissue injury Assessment & Plan: sacral ICD Codes: T14.8XXA - Other injury of unspecified body region, initial encounter SNOMED: 839911672 (2) Krishnan catheter problem Assessment & Plan: resolved urology place new krishnan functional ICD Codes: T83.9XXA - Unsp complication of genitourinary prosth dev/grft, init SNOMED: 930564693 (3) Failure to thrive Assessment & Plan: nutritional optimization ICD Codes: R62.51 - Failure to thrive SNOMED: 42414318 (4) Leukocytosis Assessment & Plan: uti abx given improved labs improved ICD Codes: D72.829 - Elevated white blood cell count, unspecified SNOMED: 589589789 (5) Fecal impaction Assessment & Plan: Abundant inspissated stool distending the rectum. Proximally, there is gas throughout the colon. Suspected fecal impaction. No clear free air on exam that includes the dome of the right hemidiaphragm. Right femoral vascular catheter. Krishnan catheter. Lumbar dextrocurvature. Chronic height loss to the leftward L3 level. Suture material again noted. IMPRESSION: Suspected fecal impaction. will start bowel regimen and enema may need manual disimpaction will follow with recs thank you ICD Codes: K56.41 - Fecal impaction SNOMED: 60278964 Raheem Kolb Oct 20, 2019 22:15
[2019-10-20] MEDS: Doxazosin 1mg Tab GT SCH (23:13)
[2019-10-21] VITALS (7 sets, daily range): BP systolic 107–168; BP diastolic 52–84
[2019-10-21] MEDS: D5NS 1,000 ML IV SCH (03:36)
[2019-10-21] MEDS: HydrALAZINE 50mg tab GT SCH ×3 (05:02→21:52)
[2019-10-21] MEDS: Sucralfate 1gm tab GT SCH ×3 (06:17→18:19)
[2019-10-21] MEDS: Piperacillin/Tazobactam 3.375 GM in NS 110 ML IVPB SCH ×3 (06:17→21:54)
[2019-10-21] MEDS: NovoLOG Insulin Flexpen SUBQ SCH ×4 (06:30→22:21)
[2019-10-21] MEDS: Levemir Flexpen SUBQ SCH ×2 (09:00→18:00)
[2019-10-21] MEDS: Ascorbic Acid 500mg tab GT SCH (09:19)
[2019-10-21] MEDS: Tums 500mg GT SCH (09:20)
[2019-10-21] MEDS: Docusate 100mg cap ORAL SCH (09:20)
[2019-10-21] MEDS: Tamsulosin 0.4mg cap ORAL SCH (09:20)
[2019-10-21] MEDS: Heparin 5000 units/ml inj SUBQ SCH ×2 (09:22→21:57)
[2019-10-21] MEDS: Vancomycin 1 GM in NS 275 ML IVPB SCH ×2 (09:25→21:53)
--- NOTE | 2019-10-21 09:40 | General Progress Note ---
Assessment/Plan Problem List: (1) UTI (urinary tract infection) ICD Codes: N39.0 - Urinary tract infection, site not specified SNOMED: 09958684 (2) Encephalopathy acute ICD Codes: G93.40 - Encephalopathy, unspecified SNOMED: 5705270 (3) Leukocytosis ICD Codes: D72.829 - Elevated white blood cell count, unspecified SNOMED: 863768990 (4) Sepsis ICD Codes: A41.9 - Sepsis, unspecified organism SNOMED: 51262834 (5) Acute urinary tract infection (6) Diabetes mellitus out of control ICD Codes: E11.9 - Diabetes mellitus out of control SNOMED: 432672615 (7) G tube feedings ICD Codes: Z93.1 - G tube feedings SNOMED: 771963137 (8) Septicemia (9) Fecal impaction ICD Codes: K56.41 - Fecal impaction SNOMED: 01099160 (10) Krishnan catheter problem ICD Codes: T83.9XXA - Unsp complication of genitourinary prosth dev/grft, init SNOMED: 866813734 Status: stable, progressing Assessment/Plan: cont iv abx follow up cultures krishnan care monitor bs bowel regime feeds ivf vent prn resp rx BP rx tried to leave message with son but telephone full. Subjective ROS Limited/Unobtainable: Yes Constitutional: Reports: malaise, weakness HEENT: Reports: no symptoms, mouth pain Cardiovascular: Reports: no symptoms Respiratory: Reports: sputum Gastrointestinal/Abdominal: Reports: difficulty swallowing Genitourinary: Reports: no symptoms Neurologic/Psychiatric: Reports: pre-existing deficit Endocrine: Reports: no symptoms Hematologic/Lymphatic: Reports: no symptoms Allergies: Coded Allergies: No Known Allergies (Unverified , 02/11/13) All Systems: reviewed and negative except above Subjective no events. krishnan was uncloggeg by the urologist. now draining clear yellow urine. positive blood and urine cultures. on iv abx. still no bowel movement. Objective Last 24 Hour Vital Signs Date Time Temp Pulse Resp B/P (MAP) Pulse Ox O2 Delivery O2 Flow Rate FiO2 10/21/19 09:19 68 119/59 10/21/19 09:19 68 119/59 10/21/19 08:00 97.9 68 17 119/59 (79) 98 10/21/19 05:02 108/54 10/21/19 05:02 108/54 10/21/19 04:00 98.2 69 21 108/54 (72) 99 10/21/19 01:06 100 T-Piece 8.0 30 10/21/19 00:00 98.0 69 21 107/55 (72) 99 10/20/19 23:13 90 115/58 10/20/19 21:00 T-piece 9.0 10/20/19 20:00 98.5 71 21 115/58 (77) 100 10/20/19 19:59 98 T-Piece 8.0 30 10/20/19 19:59 88 20 98 T-Piece 8.0 30 10/20/19 17:41 133/77 10/20/19 17:40 98 133/77 10/20/19 16:00 98.4 86 20 120/69 (86) 98 10/20/19 14:23 133/77 10/20/19 14:23 133/77 10/20/19 14:06 100 T-Piece 8.0 30 10/20/19 12:00 99.0 98 22 133/77 (95) 98 10/20/19 09:49 100 20 97 T-Piece 8.0 30 10/20/19 09:47 100 129/73 10/20/19 09:47 100 129/73 10/20/19 09:45 100 T-Piece 8.0 30 Intake and Output 10/20/19 10/21/19 19:00 07:00 Intake Total 1247.500 ml 1219.916 ml Output Total 600 ml 100 ml Balance 647.500 ml 1119.916 ml Intake IV Total 1247.500 ml 1219.916 ml Output Urine Total 600 ml 100 ml # Voids 1 # Bowel Movements 2 2 Height (Feet): 5 Height (Inches): 10.00 Weight (Pounds): 190 General Appearance: WD/WN, lethargic, confused EENT: normal ENT inspection Neck: non-tender, normal alignment, supple Cardiovascular: normal peripheral pulses, normal rate, regular rhythm Respiratory/Chest: lungs clear, normal breath sounds, no respiratory distress, no accessory muscle use Abdomen: normal bowel sounds, non tender, soft, no organomegaly Edema: no edema noted Arm (L), no edema noted Arm (R), no edema noted Leg (L), no edema noted Leg (R), no edema noted Pedal (L), no edema noted Pedal (R), no edema noted Generalized Neurologic: disoriented, unresponsive, aphasia Skin: normal pigmentation Jeremiah Perkins MD Oct 21, 2019 09:40
[2019-10-21] MEDS ORDERED: Miralax 17gm pkt ORAL PRN (09:45)
[2019-10-21] MEDS: Lactulose 20gm/30ml UDC ORAL SCH ×3 (10:30→18:19)
--- NOTE | 2019-10-21 11:06 | Pulmonology Progress Note ---
Assessment/Plan Assessment/Plan IMPRESSION Respiratory failure trach possible UTI possible sepsis urinary retention functional Quad CVA sepsis BCX+ PLAN respiratory care as is trach care and off vent as able oxygen IV antibiotics noted ID reviewed urology followup maintain SNF meds as is aspiration precautions dc once cleared impression, plan, and exam edited and reviewed in detail care discussed with RN Subjective ROS Limited/Unobtainable: Yes Allergies: Coded Allergies: No Known Allergies (Unverified , 02/11/13) All Systems: reviewed and negative except above Subjective bcx+ antibiotics noted respiratory with some congestion on trach collar Objective Last 24 Hour Vital Signs Date Time Temp Pulse Resp B/P (MAP) Pulse Ox O2 Delivery O2 Flow Rate FiO2 10/21/19 09:19 68 119/59 10/21/19 09:19 68 119/59 10/21/19 08:00 97.9 68 17 119/59 (79) 98 10/21/19 07:00 68 20 98 T-Piece 8.0 30 10/21/19 07:00 98 T-Piece 8.0 30 10/21/19 05:02 108/54 10/21/19 05:02 108/54 10/21/19 04:00 98.2 69 21 108/54 (72) 99 10/21/19 01:06 100 T-Piece 8.0 30 10/21/19 00:00 98.0 69 21 107/55 (72) 99 10/20/19 23:13 90 115/58 10/20/19 21:00 T-piece 9.0 10/20/19 20:00 98.5 71 21 115/58 (77) 100 10/20/19 19:59 98 T-Piece 8.0 30 10/20/19 19:59 88 20 98 T-Piece 8.0 30 10/20/19 17:41 133/77 10/20/19 17:40 98 133/77 10/20/19 16:00 98.4 86 20 120/69 (86) 98 10/20/19 14:23 133/77 10/20/19 14:23 133/77 10/20/19 14:06 100 T-Piece 8.0 30 10/20/19 12:00 99.0 98 22 133/77 (95) 98 Intake and Output 10/20/19 10/21/19 19:00 07:00 Intake Total 1247.500 ml 1219.916 ml Output Total 600 ml 100 ml Balance 647.500 ml 1119.916 ml Intake IV Total 1247.500 ml 1219.916 ml Output Urine Total 600 ml 100 ml # Voids 1 # Bowel Movements 2 2 Objective WDWN NAD reduced breath sounds bilaterally without rhonchi or wheeze trach [id number] without MRG NABS nontender no HSM; GT no CCE poor ROM and LOC krishnan reviewed and edited Microbiology Date/Time Source Procedure Growth Status 10/19/19 03:50 Blood Blood Culture - Preliminary Gram Negative Bacillus 1 Gram Positive Cocci Resulted 10/19/19 03:35 Blood Blood Culture - Preliminary Gram Negative Bacillus 1 Gram Positive Cocci Resulted 10/19/19 05:30 Nasal Nares MRSA Culture - Final NO METHICILLIN RESISTANT STAPH AUREUS... Complete 10/19/19 10:50 Urine,Clean Catch Urine Culture - Preliminary Gram Negative Bacillus 1 Resulted 10/19/19 05:30 Rectum - Final NO CARBAPENEM-RESISTANT ENTEROBACTERI... Complete 10/19/19 05:30 Rectum VRE Culture - Final Enterococcus Faecalis - Vre Complete Current Medications Medications (Trade) Dose Ordered Sig/Magda Route PRN Reason Start Time Stop Time Status Last Admin Dose Admin Acetaminophen (Tylenol) 650 mg Q4H PRN GT For Pain/FEVER 10/19/19 12:00 11/18/19 11:59 10/19/19 18:05 Albuterol Sulfate (Proventil) 2.5 mg Q6H PRN HHN Shortness of Breath 10/19/19 12:00 10/24/19 11:59 Amlodipine Besylate (Norvasc) 5 mg BID GT 10/19/19 18:00 11/18/19 17:59 10/21/19 09:19 Ascorbic Acid (Vitamin C) 500 mg DAILY GT 10/19/19 13:30 11/18/19 13:29 10/21/19 09:19 Bisacodyl (Dulcolax) 10 mg DAILY RECTAL 10/19/19 13:30 01/17/20 13:29 10/21/19 09:20 Bisacodyl (Dulcolax) 10 mg DAILYPRN PRN RECTAL Constipation 10/21/19 09:45 01/19/20 09:44 Calcium Carbonate (Tums) 500 mg DAILY GT 10/20/19 09:00 01/18/20 08:59 10/21/19 09:20 Clonidine HCl (Catapres Tab) 0.1 mg Q6HR GT 10/19/19 13:30 01/17/20 13:29 10/20/19 17:41 Dextrose (Dextrose 50%) 25 ml Q30M PRN IV Hypoglycemia 10/19/19 12:00 01/17/20 11:59 Dextrose (Dextrose 50%) 50 ml Q30M PRN IV Hypoglycemia 10/19/19 12:00 01/17/20 11:59 Dextrose/Sodium Chloride 1,000 ml @ 75 mls/hr [id number] IV 10/20/19 00:30 11/19/19 00:29 10/21/19 03:36 Docusate Sodium (Colace) 100 mg DAILY ORAL 10/20/19 09:00 11/19/19 08:59 10/21/19 09:20 Doxazosin Mesylate (Cardura) 2 mg BEDTIME GT 10/19/19 21:00 11/18/19 20:59 10/20/19 23:13 Finasteride (Proscar) 5 mg DAILY ORAL 10/20/19 09:00 01/18/20 08:59 10/21/19 09:20 Heparin Sodium (Porcine) (Heparin 5000 units/ml) 5,000 units EVERY 12 HOURS SUBQ 10/19/19 21:00 12/03/19 20:59 10/21/19 09:22 Hydralazine HCl (Apresoline) 50 mg EVERY 8 HOURS GT 10/19/19 14:00 01/17/20 13:59 10/20/19 14:23 Insulin Aspart (NovoLOG) BEFORE MEALS AND HS SUBQ 10/19/19 16:30 01/17/20 16:29 10/20/19 11:58 Insulin Detemir (Levemir) 35 units BID SUBQ 10/19/19 18:00 01/17/20 17:59 10/20/19 17:40 Lactulose (Cephulac) 20 gm THREE TIMES A DAY ORAL 10/21/19 09:45 11/20/19 09:44 10/21/19 10:30 Magnesium Hydroxide (Mom) 30 ml DAILY PRN GT Constipation 10/19/19 12:00 11/18/19 11:59 Metoprolol Tartrate (Lopressor) 25 mg EVERY 12 HOURS GT 10/19/19 21:00 01/17/20 20:59 10/21/19 09:19 Piperacillin Sod/ Tazobactam Sod 3.375 gm/Sodium Chloride 110 ml @ 27.5 mls/hr EVERY 8 HOURS IVPB 10/19/19 14:00 10/24/19 13:59 10/21/19 06:17 Polyethylene Glycol (Miralax) 17 gm DAILYPRN PRN ORAL Constipation 10/21/19 09:45 11/20/19 09:44 Saccharomyces Boulardii (Florastor) 250 mg TWICE A DAY GT 10/19/19 18:00 01/17/20 17:59 10/21/19 09:19 Sitagliptin Phosphate (Januvia) 100 mg DAILY GT 10/20/19 09:00 11/19/19 08:59 10/21/19 09:20 Sucralfate (Carafate) 1 gm Q6HR GT 10/19/19 13:30 01/17/20 13:29 10/21/19 06:17 Tamsulosin HCl (Flomax) 0.4 mg DAILY ORAL 10/20/19 09:00 11/19/19 08:59 10/21/19 09:20 Vancomycin HCl (Vanco rx to dose) 1 ea DAILY PRN MISC Per rx protocol 10/20/19 08:00 11/19/19 07:59 Vancomycin HCl 1 gm/Sodium Chloride 275 ml @ 183.708 mls/hr Q12HR IVPB 10/20/19 09:00 10/25/19 08:59 10/21/19 09:25 Silver Diaz MD Oct 21, 2019 11:06
[2019-10-21 11:49] LABS: BASOPHILS % (AUTO) 0.8 % (0.0-2.0); EOSINOPHILS % (AUTO) 6.7 % (0.0-3.0); HEMATOCRIT 32.8 % (42.0-52.0); HEMOGLOBIN 11.2 G/DL (14.2-18.0); LYMPHOCYTES % (AUTO) 18.9 % (20.0-45.0); MEAN CORPUSCULAR VOLUME 87 FL (80-99); MONOCYTES % (AUTO) 12.5 % (1.0-10.0); NEUTROPHILS % (AUTO) 61.1 % (45.0-75.0); PLATELET COUNT 317 K/UL (150-450); RED BLOOD COUNT 3.76 M/UL (4.70-6.10); RED CELL DISTRIBUTION WIDTH 12.8 % (11.6-14.8); WHITE BLOOD COUNT 12.6 K/UL (4.8-10.8)
[2019-10-21 12:14] LABS: ALANINE AMINOTRANSFERASE 22 U/L (12-78); ALBUMIN 1.9 G/DL (3.4-5.0); ALBUMIN/GLOBULIN RATIO 0.5 (1.0-2.7); ALKALINE PHOSPHATASE 63 U/L (46-116); ANION GAP 8 mmol/L (5-15); ASPARTATE AMINO TRANSFERASE 23 U/L (15-37); BILIRUBIN,TOTAL 0.3 MG/DL (0.2-1.0); BLOOD UREA NITROGEN 10 mg/dL (7-18); CALCIUM 7.4 MG/DL (8.5-10.1); CARBON DIOXIDE 28 MMOL/L (21-32); CHLORIDE 115 MMOL/L (98-107); CREATININE 0.9 MG/DL (0.55-1.30); POTASSIUM 3.2 MMOL/L (3.5-5.1); SODIUM 151 MMOL/L (136-145)
[2019-10-21] MEDS: D5 1/2NS w/KCl 20mEq 1,000 ML IV SCH (15:43)
--- NOTE | 2019-10-21 16:39 | Surgery Progress Note ---
Surgery Progress Note Subjective Symptoms: improved, tolerating diet, passing flatus Additional Comments krishnan with output comfortable exam stable Objective Last 24 Hour Vital Signs Date Time Temp Pulse Resp B/P (MAP) Pulse Ox O2 Delivery O2 Flow Rate FiO2 10/21/19 15:42 145/75 10/21/19 14:00 98.2 68 18 145/75 (98) 99 10/21/19 13:00 99 T-Piece 8.0 30 10/21/19 12:44 168/84 10/21/19 12:00 98.0 63 17 168/84 (112) 99 10/21/19 09:19 68 119/59 10/21/19 09:19 68 119/59 10/21/19 09:00 T-piece 9.0 10/21/19 08:00 97.9 68 17 119/59 (79) 98 10/21/19 07:00 68 20 98 T-Piece 8.0 30 10/21/19 07:00 98 T-Piece 8.0 30 10/21/19 05:02 108/54 10/21/19 05:02 108/54 10/21/19 04:00 98.2 69 21 108/54 (72) 99 10/21/19 01:06 100 T-Piece 8.0 30 10/21/19 00:00 98.0 69 21 107/55 (72) 99 10/20/19 23:13 90 115/58 10/20/19 21:00 T-piece 9.0 10/20/19 20:00 98.5 71 21 115/58 (77) 100 10/20/19 19:59 98 T-Piece 8.0 30 10/20/19 19:59 88 20 98 T-Piece 8.0 30 10/20/19 17:41 133/77 10/20/19 17:40 98 133/77 I&O Intake and Output 10/20/19 10/21/19 19:00 07:00 Intake Total 1247.500 ml 1219.916 ml Output Total 600 ml 100 ml Balance 647.500 ml 1119.916 ml Intake IV Total 1247.500 ml 1219.916 ml Output Urine Total 600 ml 100 ml # Voids 1 # Bowel Movements 2 2 Dressing: dry Wound: clean Cardiovascular: RSR Respiratory: clear Abdomen: soft, non-tender, present bowel sounds Extremities: no edema, no tenderness, no cyanosis Laboratory Tests Test 10/21/19 11:15 White Blood Count 12.6 K/UL (4.8-10.8) H Red Blood Count 3.76 M/UL (4.70-6.10) L Hemoglobin 11.2 G/DL (14.2-18.0) L Hematocrit 32.8 % (42.0-52.0) L Mean Corpuscular Volume 87 FL (80-99) Mean Corpuscular Hemoglobin 29.8 PG (27.0-31.0) Mean Corpuscular Hemoglobin Concent 34.1 G/DL (32.0-36.0) Red Cell Distribution Width 12.8 % (11.6-14.8) Platelet Count 317 K/UL (150-450) Mean Platelet Volume 10.5 FL (6.5-10.1) H Neutrophils (%) (Auto) 61.1 % (45.0-75.0) Lymphocytes (%) (Auto) 18.9 % (20.0-45.0) L Monocytes (%) (Auto) 12.5 % (1.0-10.0) H Eosinophils (%) (Auto) 6.7 % (0.0-3.0) H Basophils (%) (Auto) 0.8 % (0.0-2.0) Sodium Level 151 MMOL/L (136-145) H Potassium Level 3.2 MMOL/L (3.5-5.1) L Chloride Level 115 MMOL/L (98-107) H Carbon Dioxide Level 28 MMOL/L (21-32) Anion Gap 8 mmol/L (5-15) Blood Urea Nitrogen 10 mg/dL (7-18) Creatinine 0.9 MG/DL (0.55-1.30) Estimat Glomerular Filtration Rate > 60 mL/min (>60) Glucose Level 116 MG/DL (74-106) H Calcium Level 7.4 MG/DL (8.5-10.1) L Total Bilirubin 0.3 MG/DL (0.2-1.0) Aspartate Amino Transf (AST/SGOT) 23 U/L (15-37) Alanine Aminotransferase (ALT/SGPT) 22 U/L (12-78) Alkaline Phosphatase 63 U/L (46-116) Total Protein 5.8 G/DL (6.4-8.2) L Albumin 1.9 G/DL (3.4-5.0) L Globulin 3.9 g/dL Albumin/Globulin Ratio 0.5 (1.0-2.7) L Plan Problems: (1) Deep tissue injury Assessment & Plan: sacral (2) Krishnan catheter problem Assessment & Plan: resolved urology place new krishnan functional (3) Failure to thrive Assessment & Plan: nutritional optimization DAILY ESTIMATED NEEDS: Needs based on DTI, DM 78kg adj 22-27 kcals/kg 9555-2733 total kcals 1.25-1.5 g protein/kg 98-117 g total protein 25-30 mL/kg 5712-1123 total fluid mLs NUTRITION DIAGNOSIS: Swallowing difficulty R/T respiratory status as evidenced by pt vent dep via T-collar w/ PEG feedings (CURRENT TF: Glucerna 1.5@ 30ml/hr - HELD) ENTERAL NUTRITION RECOMMENDATIONS: Glucerna 1.5 @60ml x20 hrs to provide 1200ml, 1800 kcal, 99g pro. 911ml free H2O - As medically able, resume TF's. Advance as tolerated 10ml/hr q4-6 hrs to goal. - Flush per MD/ HOB over 30 degrees ADDITIONAL RECOMMENDATIONS: - Change bed scale to florence bed for accurate CBW - Monitor lytes daily on TF - When TF at goal is tolerated, rec KURTIS in 4oz H2O BID for wound care (4) Leukocytosis Assessment & Plan: uti abx given improved labs improved (5) Fecal impaction Assessment & Plan: Abundant inspissated stool distending the rectum. Proximally, there is gas throughout the colon. Suspected fecal impaction. No clear free air on exam that includes the dome of the right hemidiaphragm. Right femoral vascular catheter. Krishnan catheter. Lumbar dextrocurvature. Chronic height loss to the leftward L3 level. Suture material again noted. IMPRESSION: Suspected fecal impaction. will start bowel regimen and enema may need manual disimpaction will follow with recs thank you Raheem Kolb Oct 21, 2019 16:39
--- NOTE | 2019-10-21 16:45 | Consultation ---
DATE OF CONSULTATION: 10/21/2019 INFECTIOUS DISEASES CONSULTATION CONSULTING PHYSICIAN: Jesica Alegria MD. REFERRING PHYSICIANS: 1. Jeremiah Perkins MD. 2. Silver Diaz MD. REASON FOR CONSULTATION: Pneumonia. HISTORY OF PRESENTING ILLNESS: This is a 69-year-old gentleman with history of diabetes, hypertension, stroke, who comes in from a detention facility with urinary tract infection and also he was found to be bacteremic and an Infectious Diseases consultation has been obtained for antibiotics. PAST MEDICAL HISTORY: 1. History of diabetes. 2. Hypertension. 3. Encephalopathy. 4. Stroke. 5. Benign prostatic hypertrophy. 6. Status post G-tube placement. SOCIAL HISTORY: No history of smoking, alcohol, or drug use. FAMILY HISTORY: Unknown. REVIEW OF SYSTEMS: Unable to obtain currently. MEDICATIONS: As an inpatient, the patient is on polyethylene glycol, Dulcolax, lactulose, calcium carbonate, docusate, finasteride, Januvia, Flomax, IV vancomycin, subcutaneous heparin, metoprolol, amlodipine, , insulin, hydralazine, Zosyn, ascorbic acid, clonidine, sucralfate, Tylenol, albuterol, milk of magnesia. ALLERGIES: No known drug allergies. PHYSICAL EXAMINATION: VITAL SIGNS: Temperature of 97.9, T-max of 98.8, pulse of 68, respirations 17, blood pressure 119/59, O2 saturation of 98%. Examination is deferred due to possibility of COVID-19. LABORATORY DATA: White count 18.8, hemoglobin 14, hematocrit 41, MCV 88, platelet count 345. Sodium 143, potassium 3.7, chloride 104, bicarb 31, BUN 20, creatinine 0.8, glucose 111, calcium 9, total bilirubin 0.2. AST 14, ALT 26, alkaline phosphatase 104. CK of 68, CK-MB 1.2. Troponin of 0. Total protein 7.8, albumin 2.7. UA showing too numerous to count white cells. Urine culture showing gram-negative rods. Blood culture showing gram-positive cocci and gram-negative rods. Nasal swab was negative for MRSA. Rectal swab was negative for VRE. Chest x-ray showing minimal improvement in aeration of left lung base with bilateral airspace opacity still present. ASSESSMENT: This is a 69-year-old gentleman with history of diabetes, hypertension, encephalopathy, benign prostatic hypertrophy, respiratory failure, who comes in with fevers and was found to have. 1. Gram-negative sepsis, likely secondary to urinary tract infection. 2. Gram-positive sepsis. 3. Pneumonia. 4. I would like to rule out COVID-19 as a possibility. 5. Diabetes. 6. Hypertension. PLAN: 1. Continue IV vancomycin and Zosyn. 2. We will follow up cultures and adjust antibiotics accordingly. 3. We will recommend isolation. 4. We will order COVID-19 testing. I would like to thank, Dr. Perkins and Dr. Diaz for this consultation. Jesica Alegria M.D. DR: LAW JOB#: [id number] CC: Giovanni Garcias M.D. ; FAX#: [phone]
[2019-10-21] MEDS: Doxazosin 1mg Tab GT SCH (21:53)
[2019-10-22] VITALS: BP 146/80
[2019-10-22] MEDS: Sucralfate 1gm tab GT SCH ×4 (01:09→17:48)
[2019-10-22 04:00] VITALS: BP 128/67
[2019-10-22] MEDS: Acetaminophen 650mg/20.3ml GT PRN (05:18)
[2019-10-22] MEDS: HydrALAZINE 50mg tab GT SCH ×3 (05:20→21:34)
[2019-10-22] MEDS: Piperacillin/Tazobactam 3.375 GM in NS 110 ML IVPB SCH (05:20)
[2019-10-22] MEDS: NovoLOG Insulin Flexpen SUBQ SCH ×4 (05:33→21:00)
[2019-10-22] MEDS: D5 1/2NS w/KCl 20mEq 1,000 ML IV SCH ×2 (05:43→17:47)
[2019-10-22 08:00] VITALS: BP 115/61
[2019-10-22] MEDS: Lactulose 20gm/30ml UDC ORAL SCH ×3 (09:00→17:49)
[2019-10-22] MEDS: Ascorbic Acid 500mg tab GT SCH (09:00)
[2019-10-22] MEDS: Docusate 100mg cap ORAL SCH (09:00)
[2019-10-22] MEDS: Vancomycin 1 GM in NS 275 ML IVPB SCH ×2 (09:00→21:33)
[2019-10-22] MEDS: Levemir Flexpen SUBQ SCH ×2 (09:00→17:53)
[2019-10-22] MEDS: Tums 500mg GT SCH (09:00)
[2019-10-22] MEDS: Heparin 5000 units/ml inj SUBQ SCH ×2 (09:00→21:34)
[2019-10-22] MEDS: Tamsulosin 0.4mg cap ORAL SCH (09:00)
--- NOTE | 2019-10-22 09:11 | Pulmonology Progress Note ---
Assessment/Plan Assessment/Plan IMPRESSION Respiratory failure trach possible UTI possible sepsis urinary retention functional Quad CVA sepsis BCX+ PLAN respiratory care as is trach care and off vent as able oxygen IV antibiotics noted and cultures and sens reviewed ID reviewed urology followup maintain SNF meds as is aspiration precautions dc back to SNF pending ID clearance monitor UO impression, plan, and exam edited and reviewed in detail care discussed with RN Subjective ROS Limited/Unobtainable: Yes Allergies: Coded Allergies: No Known Allergies (Unverified , 02/11/13) All Systems: reviewed and negative except above Subjective bcx+ UCx + antibiotics noted respiratory with some congestion same on trach collar Objective Last 24 Hour Vital Signs Date Time Temp Pulse Resp B/P (MAP) Pulse Ox O2 Delivery O2 Flow Rate FiO2 10/22/19 08:00 97.8 60 18 115/61 (79) 96 10/22/19 07:54 69 20 98 T-Piece 8.0 30 10/22/19 07:54 98 T-Piece 8.0 30 10/22/19 05:48 101.0 10/22/19 05:20 128/67 10/22/19 04:00 101.7 66 19 128/67 (87) 99 10/22/19 01:41 98 T-Piece 8.0 30 10/22/19 01:09 146/80 10/22/19 00:00 98.0 77 23 146/80 (102) 98 10/21/19 21:52 77 146/73 10/21/19 21:52 146/73 10/21/19 21:00 T-piece 9.0 10/21/19 20:22 97 T-Piece 8.0 30 10/21/19 20:22 65 20 97 T-Piece 8.0 30 10/21/19 20:00 98.9 77 22 146/73 (97) 96 10/21/19 18:20 140/52 10/21/19 18:20 64 140/52 10/21/19 16:00 97.8 64 18 140/52 (81) 97 10/21/19 15:42 145/75 10/21/19 14:00 98.2 68 18 145/75 (98) 99 10/21/19 13:00 99 T-Piece 8.0 30 10/21/19 12:44 168/84 10/21/19 12:00 98.0 63 17 168/84 (112) 99 10/21/19 09:19 68 119/59 10/21/19 09:19 68 119/59 Intake and Output 10/21/19 10/22/19 19:00 07:00 Intake Total 75 ml 385.000 ml Output Total 300 ml 800 ml Balance -225 ml -415.000 ml Intake IV Total 75 ml 385.000 ml Output Urine Total 300 ml 800 ml # Voids 1 # Bowel Movements 2 Objective WDWN NAD reduced breath sounds bilaterally without rhonchi or wheeze trach [id number] without MRG NABS nontender no HSM; GT no CCE poor ROM and LOC krishnan reviewed and edited Microbiology Date/Time Source Procedure Growth Status 10/19/19 10:50 Urine,Clean Catch Urine Culture - Preliminary Gram Negative Bacillus 1 Resulted Laboratory Tests 10/21/19 11:15: White Blood Count 12.6H, Red Blood Count 3.76L, Hemoglobin 11.2L, Hematocrit 32.8L, Mean Corpuscular Volume 87, Mean Corpuscular Hemoglobin 29.8, Mean Corpuscular Hemoglobin Concent 34.1, Red Cell Distribution Width 12.8, Platelet Count 317, Mean Platelet Volume 10.5H, Neutrophils (%) (Auto) 61.1, Lymphocytes (%) (Auto) 18.9L, Monocytes (%) (Auto) 12.5H, Eosinophils (%) (Auto) 6.7H, Basophils (%) (Auto) 0.8, Sodium Level 151H, Potassium Level 3.2L, Chloride Level 115H, Carbon Dioxide Level 28, Anion Gap 8, Blood Urea Nitrogen 10, Creatinine 0.9, Estimat Glomerular Filtration Rate > 60, Glucose Level 116H, Calcium Level 7.4L, Total Bilirubin 0.3, Aspartate Amino Transf (AST/SGOT) 23, Alanine Aminotransferase (ALT/SGPT) 22, Alkaline Phosphatase 63, Total Protein 5.8L, Albumin 1.9L, Globulin 3.9, Albumin/Globulin Ratio 0.5L 10/21/19 19:47: Vancomycin Level Trough 16.5H Current Medications Medications (Trade) Dose Ordered Sig/Magda Route PRN Reason Start Time Stop Time Status Last Admin Dose Admin Acetaminophen (Tylenol) 650 mg Q4H PRN GT For Pain/FEVER 10/19/19 12:00 11/18/19 11:59 4/28/20 05:18 Albuterol Sulfate (Proventil) 2.5 mg Q6H PRN HHN Shortness of Breath 10/19/19 12:00 10/24/19 11:59 Amlodipine Besylate (Norvasc) 5 mg BID GT 10/19/19 18:00 11/18/19 17:59 10/21/19 18:20 Ascorbic Acid (Vitamin C) 500 mg DAILY GT 10/19/19 13:30 11/18/19 13:29 10/21/19 09:19 Bisacodyl (Dulcolax) 10 mg DAILY RECTAL 10/19/19 13:30 01/17/20 13:29 10/21/19 09:20 Bisacodyl (Dulcolax) 10 mg DAILYPRN PRN RECTAL Constipation 10/21/19 09:45 01/19/20 09:44 Calcium Carbonate (Tums) 500 mg DAILY GT 10/20/19 09:00 01/18/20 08:59 10/21/19 09:20 Clonidine HCl (Catapres Tab) 0.1 mg Q6HR GT 10/19/19 13:30 01/17/20 13:29 10/22/19 01:09 Dextrose (Dextrose 50%) 25 ml Q30M PRN IV Hypoglycemia 10/19/19 12:00 01/17/20 11:59 Dextrose (Dextrose 50%) 50 ml Q30M PRN IV Hypoglycemia 10/19/19 12:00 01/17/20 11:59 Dextrose/ Electrolytes 1,000 ml @ 75 mls/hr [id number] IV 10/21/19 15:00 11/20/19 14:59 10/22/19 05:43 Docusate Sodium (Colace) 100 mg DAILY ORAL 10/20/19 09:00 11/19/19 08:59 10/21/19 09:20 Doxazosin Mesylate (Cardura) 2 mg BEDTIME GT 10/19/19 21:00 11/18/19 20:59 10/21/19 21:53 Finasteride (Proscar) 5 mg DAILY ORAL 10/20/19 09:00 01/18/20 08:59 10/21/19 09:20 Heparin Sodium (Porcine) (Heparin 5000 units/ml) 5,000 units EVERY 12 HOURS SUBQ 4/25/20 21:00 12/03/19 20:59 10/21/19 21:57 Hydralazine HCl (Apresoline) 50 mg EVERY 8 HOURS GT 10/19/19 14:00 01/17/20 13:59 10/22/19 05:20 Insulin Aspart (NovoLOG) BEFORE MEALS AND HS SUBQ 10/19/19 16:30 01/17/20 16:29 10/22/19 05:33 Insulin Detemir (Levemir) 35 units BID SUBQ 10/19/19 18:00 01/17/20 17:59 10/21/19 18:00 Lactulose (Cephulac) 20 gm THREE TIMES A DAY ORAL 10/21/19 09:45 11/20/19 09:44 10/21/19 18:19 Magnesium Hydroxide (Mom) 30 ml DAILY PRN GT Constipation 10/19/19 12:00 11/18/19 11:59 Metoprolol Tartrate (Lopressor) 25 mg EVERY 12 HOURS GT 10/19/19 21:00 01/17/20 20:59 10/21/19 21:52 Piperacillin Sod/ Tazobactam Sod 3.375 gm/Sodium Chloride 110 ml @ 27.5 mls/hr EVERY 8 HOURS IVPB 10/19/19 14:00 10/24/19 13:59 10/22/19 05:20 Polyethylene Glycol (Miralax) 17 gm DAILYPRN PRN ORAL Constipation 10/21/19 09:45 11/20/19 09:44 Saccharomyces Boulardii (Florastor) 250 mg TWICE A DAY GT 10/19/19 18:00 01/17/20 17:59 10/21/19 18:19 Sitagliptin Phosphate (Januvia) 100 mg DAILY GT 10/20/19 09:00 11/19/19 08:59 10/21/19 09:20 Sucralfate (Carafate) 1 gm Q6HR GT 10/19/19 13:30 01/17/20 13:29 10/22/19 01:09 Tamsulosin HCl (Flomax) 0.4 mg DAILY ORAL 10/20/19 09:00 11/19/19 08:59 10/21/19 09:20 Vancomycin HCl (Vanco rx to dose) 1 ea DAILY PRN MISC Per rx protocol 10/20/19 08:00 11/19/19 07:59 Vancomycin HCl 1 gm/Sodium Chloride 275 ml @ 183.708 mls/hr Q12HR IVPB 10/20/19 09:00 10/25/19 08:59 10/21/19 21:53 Silver Diaz MD Oct 22, 2019 09:11
--- NOTE | 2019-10-22 10:04 | General Progress Note ---
Assessment/Plan Problem List: (1) UTI (urinary tract infection) ICD Codes: N39.0 - Urinary tract infection, site not specified SNOMED: 66701604 (2) Encephalopathy acute ICD Codes: G93.40 - Encephalopathy, unspecified SNOMED: 0925173 (3) Leukocytosis ICD Codes: D72.829 - Elevated white blood cell count, unspecified SNOMED: 830851534 (4) Sepsis ICD Codes: A41.9 - Sepsis, unspecified organism SNOMED: 07313118 (5) Acute urinary tract infection (6) Diabetes mellitus out of control ICD Codes: E11.9 - Diabetes mellitus out of control SNOMED: 714836980 (7) G tube feedings ICD Codes: Z93.1 - G tube feedings SNOMED: 227064809 (8) Septicemia (9) Fecal impaction ICD Codes: K56.41 - Fecal impaction SNOMED: 49772628 (10) Krishnan catheter problem ICD Codes: T83.9XXA - Unsp complication of genitourinary prosth dev/grft, init SNOMED: 202480703 Status: stable, progressing Assessment/Plan: cont iv abx check renal US- r/o perinephric abscess krishnan care monitor bs bowel regime feeds ivf- will adjust based on labs vent prn resp rx BP rx tried to leave message with son but telephone full. Subjective ROS Limited/Unobtainable: Yes Constitutional: Reports: malaise, weakness HEENT: Reports: no symptoms Cardiovascular: Reports: no symptoms Respiratory: Reports: shortness of breath, sputum Gastrointestinal/Abdominal: Reports: difficulty swallowing Genitourinary: Reports: no symptoms Neurologic/Psychiatric: Reports: pre-existing deficit Endocrine: Reports: no symptoms Hematologic/Lymphatic: Reports: anemia Allergies: Coded Allergies: No Known Allergies (Unverified , 02/11/13) All Systems: reviewed and negative except above Subjective no events. Id and pulm appreciated. still running fevers. on iv abx. on trach collar. nonverbal at baseline. labs pending for today. Objective Last 24 Hour Vital Signs Date Time Temp Pulse Resp B/P (MAP) Pulse Ox O2 Delivery O2 Flow Rate FiO2 10/22/19 09:00 60 115/61 10/22/19 09:00 60 115/61 10/22/19 08:00 97.8 60 18 115/61 (79) 96 10/22/19 07:54 69 20 98 T-Piece 8.0 30 10/22/19 07:54 98 T-Piece 8.0 30 10/22/19 05:48 101.0 10/22/19 05:20 128/67 10/22/19 04:00 101.7 66 19 128/67 (87) 99 10/22/19 01:41 98 T-Piece 8.0 30 10/22/19 01:09 146/80 10/22/19 00:00 98.0 77 23 146/80 (102) 98 10/21/19 21:52 77 146/73 10/21/19 21:52 146/73 10/21/19 21:00 T-piece 9.0 10/21/19 20:22 97 T-Piece 8.0 30 10/21/19 20:22 65 20 97 T-Piece 8.0 30 10/21/19 20:00 98.9 77 22 146/73 (97) 96 10/21/19 18:20 140/52 10/21/19 18:20 64 140/52 10/21/19 16:00 97.8 64 18 140/52 (81) 97 10/21/19 15:42 145/75 10/21/19 14:00 98.2 68 18 145/75 (98) 99 10/21/19 13:00 99 T-Piece 8.0 30 10/21/19 12:44 168/84 10/21/19 12:00 98.0 63 17 168/84 (112) 99 Intake and Output 10/21/19 10/22/19 19:00 07:00 Intake Total 75 ml 385.000 ml Output Total 300 ml 800 ml Balance -225 ml -415.000 ml Intake IV Total 75 ml 385.000 ml Output Urine Total 300 ml 800 ml # Voids 1 # Bowel Movements 2 Laboratory Tests 10/21/19 11:15: White Blood Count 12.6H, Red Blood Count 3.76L, Hemoglobin 11.2L, Hematocrit 32.8L, Mean Corpuscular Volume 87, Mean Corpuscular Hemoglobin 29.8, Mean Corpuscular Hemoglobin Concent 34.1, Red Cell Distribution Width 12.8, Platelet Count 317, Mean Platelet Volume 10.5H, Neutrophils (%) (Auto) 61.1, Lymphocytes (%) (Auto) 18.9L, Monocytes (%) (Auto) 12.5H, Eosinophils (%) (Auto) 6.7H, Basophils (%) (Auto) 0.8, Sodium Level 151H, Potassium Level 3.2L, Chloride Level 115H, Carbon Dioxide Level 28, Anion Gap 8, Blood Urea Nitrogen 10, Creatinine 0.9, Estimat Glomerular Filtration Rate > 60, Glucose Level 116H, Calcium Level 7.4L, Total Bilirubin 0.3, Aspartate Amino Transf (AST/SGOT) 23, Alanine Aminotransferase (ALT/SGPT) 22, Alkaline Phosphatase 63, Total Protein 5.8L, Albumin 1.9L, Globulin 3.9, Albumin/Globulin Ratio 0.5L 10/21/19 19:47: Vancomycin Level Trough 16.5H Height (Feet): 5 Height (Inches): 10.00 Weight (Pounds): 190 Objective General Appearance: WD/WN, lethargic, confused EENT: normal ENT inspection Neck: non-tender, normal alignment, supple Cardiovascular: normal peripheral pulses, normal rate, regular rhythm Respiratory/Chest: lungs clear, normal breath sounds, no respiratory distress, no accessory muscle use Abdomen: normal bowel sounds, non tender, soft, no organomegaly Edema: no edema noted Arm (L), no edema noted Arm (R), no edema noted Leg (L), no edema noted Leg (R), no edema noted Pedal (L), no edema noted Pedal (R), no edema noted Generalized Neurologic: disoriented, unresponsive, aphasia Skin: normal pigmentation Jeremiah Perkins MD Oct 22, 2019 10:04
--- NOTE | 2019-10-22 10:57 | Infectious Diseases Prog Note ---
Assessment/Plan Assessment/Plan antibiotics : vancomycin iv, zosyn A 1. klebsiella sepsis 2. gram negative UTI 3. gram positive sepsis 4. r/o COVID 19 pneumonia 5. diabetes mellitus 6. hypertension 7. CVA P 1. continue iv vancomycin 2. d/c zosyn 3. start iv ceftriaxone 4. will follow up cultures Subjective ROS Limited/Unobtainable: Yes Allergies: Coded Allergies: No Known Allergies (Unverified , 02/11/13) Objective Vital Signs Last 24 Hour Vital Signs Date Time Temp Pulse Resp B/P (MAP) Pulse Ox O2 Delivery O2 Flow Rate FiO2 10/22/19 09:00 60 115/61 10/22/19 09:00 60 115/61 10/22/19 08:00 97.8 60 18 115/61 (79) 96 10/22/19 07:54 69 20 98 T-Piece 8.0 30 10/22/19 07:54 98 T-Piece 8.0 30 10/22/19 05:48 101.0 10/22/19 05:20 128/67 10/22/19 04:00 101.7 66 19 128/67 (87) 99 10/22/19 01:41 98 T-Piece 8.0 30 10/22/19 01:09 146/80 10/22/19 00:00 98.0 77 23 146/80 (102) 98 10/21/19 21:52 77 146/73 10/21/19 21:52 146/73 10/21/19 21:00 T-piece 9.0 10/21/19 20:22 97 T-Piece 8.0 30 10/21/19 20:22 65 20 97 T-Piece 8.0 30 10/21/19 20:00 98.9 77 22 146/73 (97) 96 10/21/19 18:20 140/52 10/21/19 18:20 64 140/52 10/21/19 16:00 97.8 64 18 140/52 (81) 97 10/21/19 15:42 145/75 10/21/19 14:00 98.2 68 18 145/75 (98) 99 10/21/19 13:00 99 T-Piece 8.0 30 10/21/19 12:44 168/84 10/21/19 12:00 98.0 63 17 168/84 (112) 99 Height (Feet): 5 Height (Inches): 10.00 Weight (Pounds): 190 HEENT: status post trach Laboratory Tests Test 10/21/19 11:15 10/21/19 19:47 White Blood Count 12.6 K/UL (4.8-10.8) H Red Blood Count 3.76 M/UL (4.70-6.10) L Hemoglobin 11.2 G/DL (14.2-18.0) L Hematocrit 32.8 % (42.0-52.0) L Mean Corpuscular Volume 87 FL (80-99) Mean Corpuscular Hemoglobin 29.8 PG (27.0-31.0) Mean Corpuscular Hemoglobin Concent 34.1 G/DL (32.0-36.0) Red Cell Distribution Width 12.8 % (11.6-14.8) Platelet Count 317 K/UL (150-450) Mean Platelet Volume 10.5 FL (6.5-10.1) H Neutrophils (%) (Auto) 61.1 % (45.0-75.0) Lymphocytes (%) (Auto) 18.9 % (20.0-45.0) L Monocytes (%) (Auto) 12.5 % (1.0-10.0) H Eosinophils (%) (Auto) 6.7 % (0.0-3.0) H Basophils (%) (Auto) 0.8 % (0.0-2.0) Sodium Level 151 MMOL/L (136-145) H Potassium Level 3.2 MMOL/L (3.5-5.1) L Chloride Level 115 MMOL/L (98-107) H Carbon Dioxide Level 28 MMOL/L (21-32) Anion Gap 8 mmol/L (5-15) Blood Urea Nitrogen 10 mg/dL (7-18) Creatinine 0.9 MG/DL (0.55-1.30) Estimat Glomerular Filtration Rate > 60 mL/min (>60) Glucose Level 116 MG/DL (74-106) H Calcium Level 7.4 MG/DL (8.5-10.1) L Total Bilirubin 0.3 MG/DL (0.2-1.0) Aspartate Amino Transf (AST/SGOT) 23 U/L (15-37) Alanine Aminotransferase (ALT/SGPT) 22 U/L (12-78) Alkaline Phosphatase 63 U/L (46-116) Total Protein 5.8 G/DL (6.4-8.2) L Albumin 1.9 G/DL (3.4-5.0) L Globulin 3.9 g/dL Albumin/Globulin Ratio 0.5 (1.0-2.7) L Vancomycin Level Trough 16.5 ug/mL (5.0-12.0) H Current Medications Medications (Trade) Dose Ordered Sig/Magda Route PRN Reason Start Time Stop Time Status Last Admin Dose Admin Acetaminophen (Tylenol) 650 mg Q4H PRN GT For Pain/FEVER 10/19/19 12:00 11/18/19 11:59 10/22/19 05:18 Albuterol Sulfate (Proventil) 2.5 mg Q6H PRN HHN Shortness of Breath 10/19/19 12:00 10/24/19 11:59 Amlodipine Besylate (Norvasc) 5 mg BID GT 10/19/19 18:00 11/18/19 17:59 10/22/19 09:00 Ascorbic Acid (Vitamin C) 500 mg DAILY GT 10/19/19 13:30 11/18/19 13:29 10/22/19 09:00 Bisacodyl (Dulcolax) 10 mg DAILY RECTAL 10/19/19 13:30 01/17/20 13:29 10/22/19 09:00 Bisacodyl (Dulcolax) 10 mg DAILYPRN PRN RECTAL Constipation 10/21/19 09:45 01/19/20 09:44 Calcium Carbonate (Tums) 500 mg DAILY GT 10/20/19 09:00 01/18/20 08:59 10/22/19 09:00 Clonidine HCl (Catapres Tab) 0.1 mg Q6HR GT 10/19/19 13:30 01/17/20 13:29 10/22/19 01:09 Dextrose (Dextrose 50%) 25 ml Q30M PRN IV Hypoglycemia 10/19/19 12:00 01/17/20 11:59 Dextrose (Dextrose 50%) 50 ml Q30M PRN IV Hypoglycemia 10/19/19 12:00 01/17/20 11:59 Dextrose/ Electrolytes 1,000 ml @ 75 mls/hr [id number] IV 10/21/19 15:00 11/20/19 14:59 10/22/19 05:43 Docusate Sodium (Colace) 100 mg DAILY ORAL 10/20/19 09:00 11/19/19 08:59 10/22/19 09:00 Doxazosin Mesylate (Cardura) 2 mg BEDTIME GT 10/19/19 21:00 11/18/19 20:59 10/21/19 21:53 Finasteride (Proscar) 5 mg DAILY ORAL 10/20/19 09:00 01/18/20 08:59 10/22/19 09:00 Heparin Sodium (Porcine) (Heparin 5000 units/ml) 5,000 units EVERY 12 HOURS SUBQ 10/19/19 21:00 12/03/19 20:59 10/22/19 09:00 Hydralazine HCl (Apresoline) 50 mg EVERY 8 HOURS GT 10/19/19 14:00 01/17/20 13:59 10/22/19 05:20 Insulin Aspart (NovoLOG) BEFORE MEALS AND HS SUBQ 10/19/19 16:30 01/17/20 16:29 10/22/19 05:33 Insulin Detemir (Levemir) 35 units BID SUBQ 10/19/19 18:00 01/17/20 17:59 10/22/19 09:00 Lactulose (Cephulac) 20 gm THREE TIMES A DAY ORAL 10/21/19 09:45 11/20/19 09:44 10/22/19 09:00 Magnesium Hydroxide (Mom) 30 ml DAILY PRN GT Constipation 10/19/19 12:00 11/18/19 11:59 Metoprolol Tartrate (Lopressor) 25 mg EVERY 12 HOURS GT 10/19/19 21:00 01/17/20 20:59 10/22/19 09:00 Piperacillin Sod/ Tazobactam Sod 3.375 gm/Sodium Chloride 110 ml @ 27.5 mls/hr EVERY 8 HOURS IVPB 10/19/19 14:00 10/25/19 13:59 10/22/19 05:20 Polyethylene Glycol (Miralax) 17 gm DAILYPRN PRN ORAL Constipation 10/21/19 09:45 11/20/19 09:44 Saccharomyces Boulardii (Florastor) 250 mg TWICE A DAY GT 10/19/19 18:00 01/17/20 17:59 10/22/19 09:00 Sitagliptin Phosphate (Januvia) 100 mg DAILY GT 10/20/19 09:00 11/19/19 08:59 10/22/19 09:00 Sucralfate (Carafate) 1 gm Q6HR GT 10/19/19 13:30 01/17/20 13:29 10/22/19 01:09 Tamsulosin HCl (Flomax) 0.4 mg DAILY ORAL 10/20/19 09:00 11/19/19 08:59 10/22/19 09:00 Vancomycin HCl (Vanco rx to dose) 1 ea DAILY PRN MISC Per rx protocol 10/20/19 08:00 11/19/19 07:59 Vancomycin HCl 1 gm/Sodium Chloride 275 ml @ 183.708 mls/hr Q12HR IVPB 10/20/19 09:00 10/25/19 08:59 10/22/19 09:00 Jesica Alegria MD Oct 22, 2019 10:57
[2019-10-22 11:45] LABS: BASOPHILS % (AUTO) 1.2 % (0.0-2.0); EOSINOPHILS % (AUTO) 6.2 % (0.0-3.0); HEMATOCRIT 30.8 % (42.0-52.0); HEMOGLOBIN 10.4 G/DL (14.2-18.0); LYMPHOCYTES % (AUTO) 21.7 % (20.0-45.0); MEAN CORPUSCULAR VOLUME 88 FL (80-99); MONOCYTES % (AUTO) 9.4 % (1.0-10.0); NEUTROPHILS % (AUTO) 61.5 % (45.0-75.0); PLATELET COUNT 342 K/UL (150-450); RED BLOOD COUNT 3.52 M/UL (4.70-6.10); RED CELL DISTRIBUTION WIDTH 12.8 % (11.6-14.8); WHITE BLOOD COUNT 12.6 K/UL (4.8-10.8)
[2019-10-22 11:54] LABS: ANION GAP 10 mmol/L (5-15); BLOOD UREA NITROGEN 9 mg/dL (7-18); CALCIUM 8.1 MG/DL (8.5-10.1); CARBON DIOXIDE 24 MMOL/L (21-32); CHLORIDE 114 MMOL/L (98-107); CREATININE 1.2 MG/DL (0.55-1.30); POTASSIUM 3.2 MMOL/L (3.5-5.1); SODIUM 147 MMOL/L (136-145)
[2019-10-22 12:00] VITALS: BP 119/69
[2019-10-22] MEDS ORDERED: cefTRIAXone 1 GM in D5W 55 ML IVPB SCH (12:00)
--- NOTE | 2019-10-22 12:56 | Surgery Progress Note ---
Surgery Progress Note Subjective Additional Comments krishnan with sediment trach with t piece tube feeds Objective Last 24 Hour Vital Signs Date Time Temp Pulse Resp B/P (MAP) Pulse Ox O2 Delivery O2 Flow Rate FiO2 10/22/19 12:00 119/69 10/22/19 12:00 98.8 79 17 119/69 (86) 98 10/22/19 09:00 T-piece 9.0 10/22/19 09:00 60 115/61 10/22/19 09:00 60 115/61 10/22/19 08:00 97.8 60 18 115/61 (79) 96 10/22/19 07:54 69 20 98 T-Piece 8.0 30 10/22/19 07:54 98 T-Piece 8.0 30 10/22/19 05:48 101.0 10/22/19 05:20 128/67 10/22/19 04:00 101.7 66 19 128/67 (87) 99 10/22/19 01:41 98 T-Piece 8.0 30 10/22/19 01:09 146/80 10/22/19 00:00 98.0 77 23 146/80 (102) 98 10/21/19 21:52 77 146/73 10/21/19 21:52 146/73 10/21/19 21:00 T-piece 9.0 10/21/19 20:22 97 T-Piece 8.0 30 10/21/19 20:22 65 20 97 T-Piece 8.0 30 10/21/19 20:00 98.9 77 22 146/73 (97) 96 10/21/19 18:20 140/52 10/21/19 18:20 64 140/52 10/21/19 16:00 97.8 64 18 140/52 (81) 97 10/21/19 15:42 145/75 10/21/19 14:00 98.2 68 18 145/75 (98) 99 10/21/19 13:00 99 T-Piece 8.0 30 I&O Intake and Output 10/21/19 10/22/19 19:00 07:00 Intake Total 75 ml 385.000 ml Output Total 300 ml 800 ml Balance -225 ml -415.000 ml Intake IV Total 75 ml 385.000 ml Output Urine Total 300 ml 800 ml # Voids 1 # Bowel Movements 2 Dressing: saturated Wound: other Drains: other Cardiovascular: RSR Respiratory: decreased breath sounds Abdomen: soft, non-tender, present bowel sounds, non-distended Extremities: no cyanosis, other Laboratory Tests Test 10/21/19 19:47 10/22/19 10:50 Vancomycin Level Trough 16.5 ug/mL (5.0-12.0) H White Blood Count 12.6 K/UL (4.8-10.8) H Red Blood Count 3.52 M/UL (4.70-6.10) L Hemoglobin 10.4 G/DL (14.2-18.0) L Hematocrit 30.8 % (42.0-52.0) L Mean Corpuscular Volume 88 FL (80-99) Mean Corpuscular Hemoglobin 29.4 PG (27.0-31.0) Mean Corpuscular Hemoglobin Concent 33.6 G/DL (32.0-36.0) Red Cell Distribution Width 12.8 % (11.6-14.8) Platelet Count 342 K/UL (150-450) Mean Platelet Volume 9.2 FL (6.5-10.1) Neutrophils (%) (Auto) 61.5 % (45.0-75.0) Lymphocytes (%) (Auto) 21.7 % (20.0-45.0) Monocytes (%) (Auto) 9.4 % (1.0-10.0) Eosinophils (%) (Auto) 6.2 % (0.0-3.0) H Basophils (%) (Auto) 1.2 % (0.0-2.0) Sodium Level 147 MMOL/L (136-145) H Potassium Level 3.2 MMOL/L (3.5-5.1) L Chloride Level 114 MMOL/L (98-107) H Carbon Dioxide Level 24 MMOL/L (21-32) Anion Gap 10 mmol/L (5-15) Blood Urea Nitrogen 9 mg/dL (7-18) Creatinine 1.2 MG/DL (0.55-1.30) Estimat Glomerular Filtration Rate > 60 mL/min (>60) Glucose Level 196 MG/DL (74-106) H Calcium Level 8.1 MG/DL (8.5-10.1) L Plan Problems: (1) Deep tissue injury Assessment & Plan: sacral DTI noted on admission prior historical scar noted from healed wound wash daily with NS apply foam dressings turn q2h off load pressure pillow under legs will follow with recs thank you (2) Krishnan catheter problem Assessment & Plan: resolved urology place new krishnan functional (3) Failure to thrive Assessment & Plan: nutritional optimization DAILY ESTIMATED NEEDS: Needs based on DTI, DM 78kg adj 22-27 kcals/kg 0975-0786 total kcals 1.25-1.5 g protein/kg 98-117 g total protein 25-30 mL/kg 0700-0274 total fluid mLs NUTRITION DIAGNOSIS: Swallowing difficulty R/T respiratory status as evidenced by pt vent dep via T-collar w/ PEG feedings (CURRENT TF: Glucerna 1.5@ 30ml/hr - HELD) ENTERAL NUTRITION RECOMMENDATIONS: Glucerna 1.5 @60ml x20 hrs to provide 1200ml, 1800 kcal, 99g pro. 911ml free H2O - As medically able, resume TF's. Advance as tolerated 10ml/hr q4-6 hrs to goal. - Flush per MD/ HOB over 30 degrees ADDITIONAL RECOMMENDATIONS: - Change bed scale to [place] bed for accurate CBW - Monitor lytes daily on TF - When TF at goal is tolerated, rec KURTIS in 4oz H2O BID for wound care (4) Leukocytosis Assessment & Plan: uti abx given improved labs improved (5) Fecal impaction Assessment & Plan: Abundant inspissated stool distending the rectum. Proximally, there is gas throughout the colon. Suspected fecal impaction. No clear free air on exam that includes the dome of the right hemidiaphragm. Right femoral vascular catheter. Krishnan catheter. Lumbar dextrocurvature. Chronic height loss to the leftward L3 level. Suture material again noted. IMPRESSION: Suspected fecal impaction. will start bowel regimen and enema may need manual disimpaction will follow with recs thank you Raheem Kolb Oct 22, 2019 12:56
[2019-10-22 16:00] VITALS: BP 118/67
[2019-10-22 21:00] VITALS: BP 135/66
[2019-10-22] MEDS: Doxazosin 1mg Tab GT SCH (21:00)
[2019-10-23] VITALS (7 sets, daily range): BP systolic 140–145; BP diastolic 68–80
[2019-10-23] MEDS: Sucralfate 1gm tab GT SCH ×5 (00:07→23:39)
[2019-10-23] MEDS: HydrALAZINE 50mg tab GT SCH ×3 (06:09→22:48)
[2019-10-23] MEDS: NovoLOG Insulin Flexpen SUBQ SCH ×4 (06:30→21:00)
[2019-10-23 06:52] LABS: ANION GAP 9 mmol/L (5-15); BLOOD UREA NITROGEN 7 mg/dL (7-18); CALCIUM 8.5 MG/DL (8.5-10.1); CARBON DIOXIDE 25 MMOL/L (21-32); CHLORIDE 112 MMOL/L (98-107); CREATININE 1.1 MG/DL (0.55-1.30); POTASSIUM 3.7 MMOL/L (3.5-5.1); SODIUM 146 MMOL/L (136-145)
[2019-10-23 07:07] LABS: BASOPHILS % (AUTO) 1.1 % (0.0-2.0); EOSINOPHILS % (AUTO) 5.6 % (0.0-3.0); HEMATOCRIT 35.5 % (42.0-52.0); HEMOGLOBIN 12.1 G/DL (14.2-18.0); MEAN CORPUSCULAR VOLUME 86 FL (80-99); NEUTROPHILS % (AUTO) 65.4 % (45.0-75.0); PLATELET COUNT 411 K/UL (150-450); RED BLOOD COUNT 4.11 M/UL (4.70-6.10); RED CELL DISTRIBUTION WIDTH 12.7 % (11.6-14.8)
[2019-10-23] MEDS: Tamsulosin 0.4mg cap ORAL SCH (08:47)
[2019-10-23] MEDS: Docusate 100mg cap ORAL SCH (08:47)
[2019-10-23] MEDS: Lactulose 20gm/30ml UDC ORAL SCH ×3 (08:47→18:24)
[2019-10-23] MEDS: Ascorbic Acid 500mg tab GT SCH (08:47)
[2019-10-23] MEDS: Tums 500mg GT SCH (08:47)
[2019-10-23] MEDS: Heparin 5000 units/ml inj SUBQ SCH ×2 (08:49→21:14)
[2019-10-23] MEDS: Vancomycin 1 GM in NS 275 ML IVPB SCH (08:50)
[2019-10-23] MEDS: Levemir Flexpen SUBQ SCH ×2 (09:00→18:25)
--- NOTE | 2019-10-23 09:57 | Diagnostic Imaging Report ---
Indication: Abdominal pain Technique: XRAY Abdomen 1v Comparison: 10/19/2019 Findings: Gastrostomy tube noted. There is a right transfemoral central venous catheter. Peters catheter is noted. Surgical material noted in the pelvis. Bowel gas pattern is nonspecific but not overtly obstructive. Dense stool in the rectum. Decreased. Interstitial and airspace disease noted in the bilateral lower lungs. There are degenerative changes in the spine. Degenerative versus chronic post traumatic changes of the left femur. IMPRESSION: Nonspecific but not overtly obstructive bowel gas pattern. Interval decrease in dense stool in the rectum. Indwelling gastrostomy tube. Interstitial and airspace disease noted in the bilateral lower lungs. Additional findings as above.
--- NOTE | 2019-10-23 10:38 | Infectious Diseases Prog Note ---
"Assessment/Plan Assessment/Plan antibiotics : vancomycin iv, ceftriaxone A 1. klebsiella | enterococcus sepsis 2. e.coli | providencia UTI 3. r/o COVID 19 pneumonia 4. diabetes mellitus 5. hypertension 6. CVA P 1. d c iv vancomycin, ceftriaxone 2. start zosyn 3. will follow up cultures 4. continue isolation Subjective ROS Limited/Unobtainable: Yes Allergies: Coded Allergies: No Known Allergies (Unverified , 02/11/13) Objective Vital Signs Last 24 Hour Vital Signs Date Time Temp Pulse Resp B/P (MAP) Pulse Ox O2 Delivery O2 Flow Rate FiO2 10/23/19 08:47 77 145/75 10/23/19 08:47 77 145/75 10/23/19 06:09 145/75 10/23/19 06:09 145/75 10/23/19 06:00 98.9 77 27 145/73 (97) 92 10/23/19 04:00 98.9 77 27 145/73 (97) 93 10/23/19 00:37 97 T-Piece 8.0 30 10/23/19 00:08 141/68 10/23/19 00:00 98.3 77 27 141/68 (92) 93 10/22/19 21:36 93 157/67 10/22/19 21:34 157/67 10/22/19 21:00 98.6 83 27 135/66 (89) 93 10/22/19 21:00 T-piece 9.0 10/22/19 20:00 96 T-Piece 8.0 30 10/22/19 20:00 67 20 96 T-Piece 8.0 30 10/22/19 17:49 118/67 10/22/19 17:49 67 118/67 10/22/19 16:00 98.0 67 17 118/67 (84) 98 10/22/19 14:00 119/69 10/22/19 13:42 97 T-Piece 8.0 30 10/22/19 12:00 119/69 10/22/19 12:00 98.8 79 17 119/69 (86) 98 Height (Feet): 5 Height (Inches): 10.00 Weight (Pounds): 189 Laboratory Tests Test 10/22/19 10:50 10/23/19 06:05 White Blood Count 12.6 K/UL (4.8-10.8) H 16.0 K/UL (4.8-10.8) H Red Blood Count 3.52 M/UL (4.70-6.10) L 4.11 M/UL (4.70-6.10) L Hemoglobin 10.4 G/DL (14.2-18.0) L 12.1 G/DL (14.2-18.0) L Hematocrit 30.8 % (42.0-52.0) L 35.5 % (42.0-52.0) L Mean Corpuscular Volume 88 FL (80-99) 86 FL (80-99) Mean Corpuscular Hemoglobin 29.4 PG (27.0-31.0) 29.3 PG (27.0-31.0) Mean Corpuscular Hemoglobin Concent 33.6 G/DL (32.0-36.0) 33.9 G/DL (32.0-36.0) Red Cell Distribution Width 12.8 % (11.6-14.8) 12.7 % (11.6-14.8) Platelet Count 342 K/UL (150-450) 411 K/UL (150-450) Mean Platelet Volume 9.2 FL (6.5-10.1) 9.0 FL (6.5-10.1) Neutrophils (%) (Auto) 61.5 % (45.0-75.0) 65.4 % (45.0-75.0) Lymphocytes (%) (Auto) 21.7 % (20.0-45.0) 19.0 % (20.0-45.0) L Monocytes (%) (Auto) 9.4 % (1.0-10.0) 9.0 % (1.0-10.0) Eosinophils (%) (Auto) 6.2 % (0.0-3.0) H 5.6 % (0.0-3.0) H Basophils (%) (Auto) 1.2 % (0.0-2.0) 1.1 % (0.0-2.0) Sodium Level 147 MMOL/L (136-145) H 146 MMOL/L (136-145) H Potassium Level 3.2 MMOL/L (3.5-5.1) L 3.7 MMOL/L (3.5-5.1) Chloride Level 114 MMOL/L (98-107) H 112 MMOL/L (98-107) H Carbon Dioxide Level 24 MMOL/L (21-32) 25 MMOL/L (21-32) Anion Gap 10 mmol/L (5-15) 9 mmol/L (5-15) Blood Urea Nitrogen 9 mg/dL (7-18) 7 mg/dL (7-18) Creatinine 1.2 MG/DL (0.55-1.30) 1.1 MG/DL (0.55-1.30) Estimat Glomerular Filtration Rate > 60 mL/min (>60) > 60 mL/min (>60) Glucose Level 196 MG/DL (74-106) H 112 MG/DL (74-106) H Calcium Level 8.1 MG/DL (8.5-10.1) L 8.5 MG/DL (8.5-10.1) Current Medications Medications (Trade) Dose Ordered Sig/Magda Route PRN Reason Start Time Stop Time Status Last Admin Dose Admin Acetaminophen (Tylenol) 650 mg Q4H PRN GT For Pain/FEVER 10/19/19 12:00 11/18/19 11:59 10/22/19 05:18 Albuterol Sulfate (Proventil) 2.5 mg Q6H PRN HHN Shortness of Breath 10/19/19 12:00 10/24/19 11:59 Amlodipine Besylate (Norvasc) 5 mg BID GT 10/19/19 18:00 11/18/19 17:59 10/23/19 08:47 Ascorbic Acid (Vitamin C) 500 mg DAILY GT 10/19/19 13:30 11/18/19 13:29 10/23/19 08:47 Bisacodyl (Dulcolax) 10 mg DAILY RECTAL 10/19/19 13:30 01/17/20 13:29 10/23/19 08:47 Bisacodyl (Dulcolax) 10 mg DAILYPRN PRN RECTAL Constipation 10/21/19 09:45 01/19/20 09:44 Calcium Carbonate (Tums) 500 mg DAILY GT 10/20/19 09:00 01/18/20 08:59 10/23/19 08:47 Ceftriaxone Sodium 1 gm/ Dextrose 55 ml @ 110 mls/hr Q24H IVPB 10/22/19 12:00 10/29/19 11:59 10/22/19 12:00 Clonidine HCl (Catapres Tab) 0.1 mg Q6HR GT 10/19/19 13:30 01/17/20 13:29 10/23/19 06:09 Dextrose (Dextrose 50%) 25 ml Q30M PRN IV Hypoglycemia 10/19/19 12:00 01/17/20 11:59 Dextrose (Dextrose 50%) 50 ml Q30M PRN IV Hypoglycemia 10/19/19 12:00 01/17/20 11:59 Dextrose/ Electrolytes 1,000 ml @ 75 mls/hr [id number] IV 10/21/19 15:00 11/20/19 14:59 10/22/19 17:47 Docusate Sodium (Colace) 100 mg DAILY ORAL 10/20/19 09:00 11/19/19 08:59 10/23/19 08:47 Doxazosin Mesylate (Cardura) 2 mg BEDTIME GT 10/19/19 21:00 11/18/19 20:59 10/22/19 21:00 Finasteride (Proscar) 5 mg DAILY ORAL 10/20/19 09:00 01/18/20 08:59 10/23/19 08:47 Heparin Sodium (Porcine) (Heparin 5000 units/ml) 5,000 units EVERY 12 HOURS SUBQ 10/19/19 21:00 12/03/19 20:59 10/23/19 08:49 Hydralazine HCl (Apresoline) 50 mg EVERY 8 HOURS GT 10/19/19 14:00 01/17/20 13:59 10/23/19 06:09 Insulin Aspart (NovoLOG) BEFORE MEALS AND HS SUBQ 10/19/19 16:30 01/17/20 16:29 10/22/19 16:35 Insulin Detemir (Levemir) 35 units BID SUBQ 10/19/19 18:00 01/17/20 17:59 10/22/19 17:53 Lactulose (Cephulac) 20 gm THREE TIMES A DAY ORAL 10/21/19 09:45 11/20/19 09:44 10/23/19 08:47 Magnesium Hydroxide (Mom) 30 ml DAILY PRN GT Constipation 10/19/19 12:00 11/18/19 11:59 Metoprolol Tartrate (Lopressor) 25 mg EVERY 12 HOURS GT 10/19/19 21:00 01/17/20 20:59 10/23/19 08:47 Polyethylene Glycol (Miralax) 17 gm DAILYPRN PRN ORAL Constipation 10/21/19 09:45 11/20/19 09:44 Saccharomyces Boulardii (Florastor) 250 mg TWICE A DAY GT 10/19/19 18:00 01/17/20 17:59 10/23/19 08:47 Sitagliptin Phosphate (Januvia) 100 mg DAILY GT 10/20/19 09:00 11/19/19 08:59 10/23/19 08:47 Sucralfate (Carafate) 1 gm Q6HR GT 10/19/19 13:30 01/17/20 13:29 10/23/19 06:10 Tamsulosin HCl (Flomax) 0.4 mg DAILY ORAL 10/20/19 09:00 11/19/19 08:59 10/23/19 08:47 Vancomycin HCl (Vanco rx to dose) 1 ea DAILY PRN MISC Per rx protocol 10/20/19 08:00 11/19/19 07:59 Vancomycin HCl 1 gm/Sodium Chloride 275 ml @ 183.708 mls/hr Q12HR IVPB 10/20/19 09:00 10/25/19 08:59 10/23/19 08:50 Jesica Alegria MD Oct 23, 2019 10:38"
--- NOTE | 2019-10-23 11:06 | Pulmonology Progress Note ---
Assessment/Plan Assessment/Plan IMPRESSION Respiratory failure trach possible UTI possible sepsis urinary retention functional Quad CVA sepsis BCX+ PLAN respiratory care as is trach care and off vent as able oxygen IV antibiotics noted and cultures and sens reviewed ID reviewed urology followup maintain SNF meds as is aspiration precautions dc back to SNF pending ID clearance WBC at baseline monitor UO impression, plan, and exam edited and reviewed in detail care discussed with RN Subjective ROS Limited/Unobtainable: Yes Allergies: Coded Allergies: No Known Allergies (Unverified , 02/11/13) All Systems: reviewed and negative except above Subjective bcx+ UCx + antibiotics noted respiratory noted on trach collar Objective Last 24 Hour Vital Signs Date Time Temp Pulse Resp B/P (MAP) Pulse Ox O2 Delivery O2 Flow Rate FiO2 10/23/19 09:48 97 T-Piece 8.0 30 10/23/19 09:08 72 20 97 T-Piece 8.0 30 10/23/19 09:00 T-piece 9.0 10/23/19 08:47 77 145/75 10/23/19 08:47 77 145/75 10/23/19 08:00 97.9 73 21 143/68 (93) 91 10/23/19 06:09 145/75 10/23/19 06:09 145/75 10/23/19 06:00 98.9 77 27 145/73 (97) 92 10/23/19 04:00 98.9 77 27 145/73 (97) 93 10/23/19 00:37 97 T-Piece 8.0 30 10/23/19 00:08 141/68 10/23/19 00:00 98.3 77 27 141/68 (92) 93 10/22/19 21:36 93 157/67 10/22/19 21:34 157/67 10/22/19 21:00 98.6 83 27 135/66 (89) 93 10/22/19 21:00 T-piece 9.0 10/22/19 20:00 96 T-Piece 8.0 30 10/22/19 20:00 67 20 96 T-Piece 8.0 30 10/22/19 17:49 118/67 10/22/19 17:49 67 118/67 10/22/19 16:00 98.0 67 17 118/67 (84) 98 10/22/19 14:00 119/69 10/22/19 13:42 97 T-Piece 8.0 30 10/22/19 12:00 119/69 10/22/19 12:00 98.8 79 17 119/ (86) 98 Intake and Output 10/22/19 10/23/19 19:00 07:00 Output Total 750 ml Balance -750 ml Output Urine Total 750 ml # Voids 1 # Bowel Movements 1 Objective WDWN NAD reduced breath sounds bilaterally without rhonchi or wheeze trach [id number] without MRG NABS nontender no HSM; GT no CCE poor ROM and LOC eulogio reviewed and edited HEENT: status post trach Laboratory Tests 10/23/19 06:05: White Blood Count 16.0H, Red Blood Count 4.11L, Hemoglobin 12.1L, Hematocrit 35.5L, Mean Corpuscular Volume 86, Mean Corpuscular Hemoglobin 29.3, Mean Corpuscular Hemoglobin Concent 33.9, Red Cell Distribution Width 12.7, Platelet Count 411, Mean Platelet Volume 9.0, Neutrophils (%) (Auto) 65.4, Lymphocytes (% ) (Auto) 19.0L, Monocytes (%) (Auto) 9.0, Eosinophils (%) (Auto) 5.6H, Basophils (%) (Auto) 1.1, Sodium Level 146H, Potassium Level 3.7, Chloride Level 112H, Carbon Dioxide Level 25, Anion Gap 9, Blood Urea Nitrogen 7, Creatinine 1.1, Estimat Glomerular Filtration Rate > 60, Glucose Level 112H, Calcium Level 8.5 Current Medications Medications (Trade) Dose Ordered Sig/Magda Route PRN Reason Start Time Stop Time Status Last Admin Dose Admin Acetaminophen (Tylenol) 650 mg Q4H PRN GT For Pain/FEVER 10/19/19 12:00 11/18/19 11:59 10/22/19 05:18 Albuterol Sulfate (Proventil) 2.5 mg Q6H PRN HHN Shortness of Breath 10/19/19 12:00 10/24/19 11:59 Amlodipine Besylate (Norvasc) 5 mg BID GT 10/19/19 18:00 11/18/19 17:59 10/23/19 08:47 Ascorbic Acid (Vitamin C) 500 mg DAILY GT 10/19/19 13:30 11/18/19 13:29 10/23/19 08:47 Bisacodyl (Dulcolax) 10 mg DAILY RECTAL 10/19/19 13:30 01/17/20 13:29 10/23/19 08:47 Bisacodyl (Dulcolax) 10 mg DAILYPRN PRN RECTAL Constipation 10/21/19 09:45 01/19/20 09:44 Calcium Carbonate (Tums) 500 mg DAILY GT 10/20/19 09:00 01/18/20 08:59 10/23/19 08:47 Clonidine HCl (Catapres Tab) 0.1 mg Q6HR GT 10/19/19 13:30 01/17/20 13:29 10/23/19 06:09 Dextrose (Dextrose 50%) 25 ml Q30M PRN IV Hypoglycemia 10/19/19 12:00 01/17/20 11:59 Dextrose (Dextrose 50%) 50 ml Q30M PRN IV Hypoglycemia 10/19/19 12:00 01/17/20 11:59 Dextrose/ Electrolytes 1,000 ml @ 75 mls/hr [id number] IV 10/21/19 15:00 11/20/19 14:59 10/22/19 17:47 Docusate Sodium (Colace) 100 mg DAILY ORAL 10/20/19 09:00 11/19/19 08:59 10/23/19 08:47 Doxazosin Mesylate (Cardura) 2 mg BEDTIME GT 10/19/19 21:00 11/18/19 20:59 10/22/19 21:00 Finasteride (Proscar) 5 mg DAILY ORAL 10/20/19 09:00 01/18/20 08:59 10/23/19 08:47 Heparin Sodium (Porcine) (Heparin 5000 units/ml) 5,000 units EVERY 12 HOURS SUBQ 10/19/19 21:00 12/03/19 20:59 10/23/19 08:49 Hydralazine HCl (Apresoline) 50 mg EVERY 8 HOURS GT 10/19/19 14:00 01/17/20 13:59 10/23/19 06:09 Insulin Aspart (NovoLOG) BEFORE MEALS AND HS SUBQ 10/19/19 16:30 01/17/20 16:29 10/22/19 16:35 Insulin Detemir (Levemir) 35 units BID SUBQ 10/19/19 18:00 01/17/20 17:59 10/22/19 17:53 Lactulose (Cephulac) 20 gm THREE TIMES A DAY ORAL 10/21/19 09:45 11/20/19 09:44 10/23/19 08:47 Magnesium Hydroxide (Mom) 30 ml DAILY PRN GT Constipation 10/19/19 12:00 11/18/19 11:59 Metoprolol Tartrate (Lopressor) 25 mg EVERY 12 HOURS GT 10/19/19 21:00 01/17/20 20:59 10/23/19 08:47 Piperacillin Sod/ Tazobactam Sod 3.375 gm/Sodium Chloride 110 ml @ 27.5 mls/hr Q8H IVPB 10/23/19 12:00 10/30/19 11:59 Polyethylene Glycol (Miralax) 17 gm DAILYPRN PRN ORAL Constipation 10/21/19 09:45 11/20/19 09:44 Saccharomyces Boulardii (Florastor) 250 mg TWICE A DAY GT 10/19/19 18:00 01/17/20 17:59 10/23/19 08:47 Sitagliptin Phosphate (Januvia) 100 mg DAILY GT 10/20/19 09:00 11/19/19 08:59 10/23/19 08:47 Sucralfate (Carafate) 1 gm Q6HR GT 10/19/19 13:30 01/17/20 13:29 10/23/19 06:10 Tamsulosin HCl (Flomax) 0.4 mg DAILY ORAL 10/20/19 09:00 11/19/19 08:59 10/23/19 08:47 Silver Diaz MD Oct 23, 2019 11:06
[2019-10-23] MEDS: D5 1/2NS w/KCl 20mEq 1,000 ML IV SCH ×2 (11:50→21:13)
[2019-10-23] MEDS: Piperacillin/Tazobactam 3.375 GM in NS 110 ML IVPB SCH ×2 (11:54→21:13)
--- NOTE | 2019-10-23 15:39 | Surgery Progress Note ---
Surgery Progress Note Subjective Additional Comments worsening leukocytosis kub improved exam stable Objective Last 24 Hour Vital Signs Date Time Temp Pulse Resp B/P (MAP) Pulse Ox O2 Delivery O2 Flow Rate FiO2 10/23/19 14:07 142/80 10/23/19 12:00 97.3 70 20 142/80 (100) 97 10/23/19 11:54 145/75 10/23/19 09:48 97 T-Piece 8.0 30 10/23/19 09:08 72 20 97 T-Piece 8.0 30 10/23/19 09:00 T-piece 9.0 10/23/19 08:47 77 145/75 10/23/19 08:47 77 145/75 10/23/19 08:00 97.9 73 21 143/68 (93) 91 10/23/19 06:09 145/75 10/23/19 06:09 145/75 10/23/19 06:00 98.9 77 27 145/73 (97) 92 10/23/19 04:00 98.9 77 27 145/73 (97) 93 10/23/19 00:37 97 T-Piece 8.0 30 10/23/19 00:08 141/68 10/23/19 00:00 98.3 77 27 141/68 (92) 93 10/22/19 21:36 93 157/67 10/22/19 21:34 157/67 10/22/19 21:00 98.6 83 27 135/66 (89) 93 10/22/19 21:00 T-piece 9.0 10/22/19 20:00 96 T-Piece 8.0 30 10/22/19 20:00 67 20 96 T-Piece 8.0 30 10/22/19 17:49 118/67 10/22/19 17:49 67 118/67 10/22/19 16:00 98.0 67 17 118/67 (84) 98 I&O Intake and Output 10/22/19 10/23/19 19:00 07:00 Output Total 750 ml Balance -750 ml Output Urine Total 750 ml # Voids 1 1 # Bowel Movements 1 1 Dressing: other Wound: other Drains: other Cardiovascular: RSR Respiratory: decreased breath sounds Abdomen: soft, non-tender, present bowel sounds Extremities: no tenderness, no cyanosis, pulses, other Laboratory Tests Test 10/23/19 06:05 White Blood Count 16.0 K/UL (4.8-10.8) H Red Blood Count 4.11 M/UL (4.70-6.10) L Hemoglobin 12.1 G/DL (14.2-18.0) L Hematocrit 35.5 % (42.0-52.0) L Mean Corpuscular Volume 86 FL (80-99) Mean Corpuscular Hemoglobin 29.3 PG (27.0-31.0) Mean Corpuscular Hemoglobin Concent 33.9 G/DL (32.0-36.0) Red Cell Distribution Width 12.7 % (11.6-14.8) Platelet Count 411 K/UL (150-450) Mean Platelet Volume 9.0 FL (6.5-10.1) Neutrophils (%) (Auto) 65.4 % (45.0-75.0) Lymphocytes (%) (Auto) 19.0 % (20.0-45.0) L Monocytes (%) (Auto) 9.0 % (1.0-10.0) Eosinophils (%) (Auto) 5.6 % (0.0-3.0) H Basophils (%) (Auto) 1.1 % (0.0-2.0) Sodium Level 146 MMOL/L (136-145) H Potassium Level 3.7 MMOL/L (3.5-5.1) Chloride Level 112 MMOL/L (98-107) H Carbon Dioxide Level 25 MMOL/L (21-32) Anion Gap 9 mmol/L (5-15) Blood Urea Nitrogen 7 mg/dL (7-18) Creatinine 1.1 MG/DL (0.55-1.30) Estimat Glomerular Filtration Rate > 60 mL/min (>60) Glucose Level 112 MG/DL (74-106) H Calcium Level 8.5 MG/DL (8.5-10.1) Plan Problems: (1) Deep tissue injury Assessment & Plan: sacral DTI noted on admission prior historical scar noted from healed wound wash daily with NS apply foam dressings turn q2h off load pressure pillow under legs will follow with recs thank you (2) Krishnan catheter problem Assessment & Plan: resolved urology place new krishnan functional (3) Failure to thrive Assessment & Plan: nutritional optimization DAILY ESTIMATED NEEDS: Needs based on DTI, DM 78kg adj 22-27 kcals/kg 7433-4177 total kcals 1.25-1.5 g protein/kg 98-117 g total protein 25-30 mL/kg 7462-0596 total fluid mLs NUTRITION DIAGNOSIS: Swallowing difficulty R/T respiratory status as evidenced by pt vent dep via T-collar w/ PEG feedings (CURRENT TF: Glucerna 1.5@ 30ml/hr - HELD) ENTERAL NUTRITION RECOMMENDATIONS: Glucerna 1.5 @60ml x20 hrs to provide 1200ml, 1800 kcal, 99g pro. 911ml free H2O - As medically able, resume TF's. Advance as tolerated 10ml/hr q4-6 hrs to goal. - Flush per MD/ HOB over 30 degrees ADDITIONAL RECOMMENDATIONS: - Change bed scale to [place] bed for accurate CBW - Monitor lytes daily on TF - When TF at goal is tolerated, rec KURTIS in 4oz H2O BID for wound care (4) Leukocytosis Assessment & Plan: uti abx given improved labs improved (5) Fecal impaction Assessment & Plan: Abundant inspissated stool distending the rectum. Proximally, there is gas throughout the colon. Suspected fecal impaction. No clear free air on exam that includes the dome of the right hemidiaphragm. Right femoral vascular catheter. Krishnan catheter. Lumbar dextrocurvature. Chronic height loss to the leftward L3 level. Suture material again noted. IMPRESSION: Suspected fecal impaction. will start bowel regimen and enema may need manual disimpaction will follow with recs thank you Findings: Gastrostomy tube noted. There is a right transfemoral central venous catheter. Krishnan catheter is noted. Surgical material noted in the pelvis. Bowel gas pattern is nonspecific but not overtly obstructive. Dense stool in the rectum. Decreased. Interstitial and airspace disease noted in the bilateral lower lungs. There are degenerative changes in the spine. Degenerative versus chronic post traumatic changes of the left femur. IMPRESSION: Nonspecific but not overtly obstructive bowel gas pattern. Interval decrease in dense stool in the rectum. Indwelling gastrostomy tube. Interstitial and airspace disease noted in the bilateral lower lungs. Additional findings as above. Raheem Kolb Oct 23, 2019 15:39
--- NOTE | 2019-10-23 16:59 | General Progress Note ---
Assessment/Plan Problem List: (1) UTI (urinary tract infection) ICD Codes: N39.0 - Urinary tract infection, site not specified SNOMED: 67441875 (2) Encephalopathy acute ICD Codes: G93.40 - Encephalopathy, unspecified SNOMED: 8458676 (3) Leukocytosis ICD Codes: D72.829 - Elevated white blood cell count, unspecified SNOMED: 261705822 (4) Sepsis ICD Codes: A41.9 - Sepsis, unspecified organism SNOMED: 34127380 (5) Acute urinary tract infection (6) Diabetes mellitus out of control ICD Codes: E11.9 - Diabetes mellitus out of control SNOMED: 877736900 (7) G tube feedings ICD Codes: Z93.1 - G tube feedings SNOMED: 884083577 (8) Septicemia (9) Fecal impaction ICD Codes: K56.41 - Fecal impaction SNOMED: 00880514 (10) Krishnan catheter problem ICD Codes: T83.9XXA - Unsp complication of genitourinary prosth dev/grft, init SNOMED: 175116125 Status: stable, progressing Assessment/Plan: cont iv abx check renal US- r/o perinephric abscess. Per radiology department cannot be done until COVID-19 is back krishnan care monitor bs bowel regime feeds ivf- will adjust based on labs vent prn resp rx BP rx tried to leave message with son but telephone full. Subjective ROS Limited/Unobtainable: Yes Constitutional: Reports: malaise, weakness HEENT: Reports: no symptoms Cardiovascular: Reports: no symptoms Respiratory: Reports: sputum Gastrointestinal/Abdominal: Reports: difficulty swallowing Genitourinary: Reports: no symptoms Neurologic/Psychiatric: Reports: pre-existing deficit Endocrine: Reports: no symptoms Hematologic/Lymphatic: Reports: anemia Allergies: Coded Allergies: No Known Allergies (Unverified , 02/11/13) All Systems: reviewed and negative except above Subjective no events. Id and pulm appreciated. still running fevers. on iv abx. on trach collar. nonverbal at baseline. Still with leukocytosis. Blood cultures and urine cultures noted. IV antibiotics changed to Zosyn by infectious disease workforce consultant. Per radiology renal ultrasound cannot be done until patient is ruled out for COVID-19 Objective Last 24 Hour Vital Signs Date Time Temp Pulse Resp B/P (MAP) Pulse Ox O2 Delivery O2 Flow Rate FiO2 10/23/19 14:07 142/80 10/23/19 13:57 96 T-Piece 8.0 30 10/23/19 12:00 97.3 70 20 142/80 (100) 97 10/23/19 11:54 145/75 10/23/19 09:48 97 T-Piece 8.0 30 10/23/19 09:08 72 20 97 T-Piece 8.0 30 10/23/19 09:00 T-piece 9.0 10/23/19 08:47 77 145/75 10/23/19 08:47 77 145/75 10/23/19 08:00 97.9 73 21 143/68 (93) 91 10/23/19 06:09 145/75 10/23/19 06:09 145/75 10/23/19 06:00 98.9 77 27 145/73 (97) 92 10/23/19 04:00 98.9 77 27 145/73 (97) 93 10/23/19 00:37 97 T-Piece 8.0 30 10/23/19 00:08 141/68 10/23/19 00:00 98.3 77 27 141/68 (92) 93 10/22/19 21:36 93 157/67 10/22/19 21:34 157/67 10/22/19 21:00 98.6 83 27 135/66 (89) 93 10/22/19 21:00 T-piece 9.0 10/22/19 20:00 96 T-Piece 8.0 30 10/22/19 20:00 67 20 96 T-Piece 8.0 30 10/22/19 17:49 118/67 10/22/19 17:49 67 118/67 Intake and Output 10/22/19 10/23/19 19:00 07:00 Output Total 750 ml Balance -750 ml Output Urine Total 750 ml # Voids 1 1 # Bowel Movements 1 1 Laboratory Tests 10/23/19 06:05: White Blood Count 16.0H, Red Blood Count 4.11L, Hemoglobin 12.1L, Hematocrit 35.5L, Mean Corpuscular Volume 86, Mean Corpuscular Hemoglobin 29.3, Mean Corpuscular Hemoglobin Concent 33.9, Red Cell Distribution Width 12.7, Platelet Count 411, Mean Platelet Volume 9.0, Neutrophils (%) (Auto) 65.4, Lymphocytes (% ) (Auto) 19.0L, Monocytes (%) (Auto) 9.0, Eosinophils (%) (Auto) 5.6H, Basophils (%) (Auto) 1.1, Sodium Level 146H, Potassium Level 3.7, Chloride Level 112H, Carbon Dioxide Level 25, Anion Gap 9, Blood Urea Nitrogen 7, Creatinine 1.1, Estimat Glomerular Filtration Rate > 60, Glucose Level 112H, Calcium Level 8.5 Height (Feet): 5 Height (Inches): 10.00 Weight (Pounds): 189 Objective General Appearance: WD/WN, lethargic, confused EENT: normal ENT inspection Neck: non-tender, normal alignment, supple Cardiovascular: normal peripheral pulses, normal rate, regular rhythm Respiratory/Chest: lungs clear, normal breath sounds, no respiratory distress, no accessory muscle use Abdomen: normal bowel sounds, non tender, soft, no organomegaly Edema: no edema noted Arm (L), no edema noted Arm (R), no edema noted Leg (L), no edema noted Leg (R), no edema noted Pedal (L), no edema noted Pedal (R), no edema noted Generalized Neurologic: disoriented, unresponsive, aphasia Skin: normal pigmentation Jeremiah Perkins MD Oct 23, 2019 16:59
[2019-10-23] MEDS: Doxazosin 1mg Tab GT SCH (21:14)
[2019-10-24] VITALS: BP 117/61
[2019-10-24 04:00] VITALS: BP 145/68
[2019-10-24] MEDS: Piperacillin/Tazobactam 3.375 GM in NS 110 ML IVPB SCH ×3 (04:39→21:31)
[2019-10-24] MEDS: HydrALAZINE 50mg tab GT SCH ×3 (05:35→21:36)
[2019-10-24] MEDS: Sucralfate 1gm tab GT SCH ×3 (05:35→17:29)
[2019-10-24] MEDS: NovoLOG Insulin Flexpen SUBQ SCH ×4 (06:30→21:00)
[2019-10-24 08:00] VITALS: BP 138/69
[2019-10-24 08:00] LABS: HEMATOCRIT 32.4 % (42.0-52.0); HEMOGLOBIN 11.1 G/DL (14.2-18.0); MEAN CORPUSCULAR VOLUME 86 FL (80-99); PLATELET COUNT 411 K/UL (150-450); RED BLOOD COUNT 3.76 M/UL (4.70-6.10); RED CELL DISTRIBUTION WIDTH 12.6 % (11.6-14.8); WHITE BLOOD COUNT 21.3 K/UL (4.8-10.8)
[2019-10-24 08:29] LABS: ALANINE AMINOTRANSFERASE 31 U/L (12-78); ALBUMIN/GLOBULIN RATIO 0.5 (1.0-2.7); ALKALINE PHOSPHATASE 67 U/L (46-116); ANION GAP 7 mmol/L (5-15); ASPARTATE AMINO TRANSFERASE 24 U/L (15-37); BILIRUBIN,TOTAL 0.4 MG/DL (0.2-1.0); BLOOD UREA NITROGEN 5 mg/dL (7-18); CALCIUM 8.3 MG/DL (8.5-10.1); CARBON DIOXIDE 26 MMOL/L (21-32); CHLORIDE 110 MMOL/L (98-107); CREATININE 1.1 MG/DL (0.55-1.30); POTASSIUM 3.3 MMOL/L (3.5-5.1); SODIUM 143 MMOL/L (136-145)
--- NOTE | 2019-10-24 08:46 | Pulmonology Progress Note ---
Assessment/Plan Assessment/Plan IMPRESSION Respiratory failure trach possible UTI possible sepsis urinary retention functional Quad CVA sepsis BCX+ PLAN respiratory care as is trach care and off vent as able oxygen IV antibiotics noted and cultures and sens reviewed ID reviewed urology followup maintain SNF meds as is aspiration precautions dc back to SNF pending ID clearance; wbc worse today monitor UO impression, plan, and exam edited and reviewed in detail care discussed with RN Subjective ROS Limited/Unobtainable: Yes Allergies: Coded Allergies: No Known Allergies (Unverified , 02/11/13) All Systems: reviewed and negative except above Subjective bcx+ UCx + wbc worse antibiotics noted respiratory noted on trach collar Objective Last 24 Hour Vital Signs Date Time Temp Pulse Resp B/P (MAP) Pulse Ox O2 Delivery O2 Flow Rate FiO2 10/24/19 05:35 145/68 10/24/19 05:35 145/68 10/24/19 04:00 98.4 74 24 145/68 (93) 97 10/24/19 00:51 98 T-Piece 8.0 30 10/24/19 00:00 117/61 10/24/19 00:00 97.5 59 24 117/61 (79) 99 10/23/19 22:49 70 140/71 10/23/19 22:48 140/71 10/23/19 21:00 T-piece 9.0 10/23/19 20:00 98.2 70 24 140/71 (94) 99 10/23/19 19:42 97 T-Piece 8.0 30 10/23/19 19:41 75 20 97 T-Piece 8.0 30 10/23/19 18:24 141/74 10/23/19 18:24 75 141/74 10/23/19 16:00 98.1 75 20 141/74 (96) 100 10/23/19 14:07 142/80 10/23/19 13:57 96 T-Piece 8.0 30 10/23/19 12:00 97.3 70 20 142/80 (100) 97 10/23/19 11:54 145/75 10/23/19 09:48 97 T-Piece 8.0 30 10/23/19 09:08 72 20 97 T-Piece 8.0 30 10/23/19 09:00 T-piece 9.0 4/29/20 08:47 77 145/75 10/23/19 08:47 77 145/75 Intake and Output 10/23/19 10/24/19 19:00 07:00 Intake Total 185.0 ml 485.0 ml Output Total 2200 ml Balance -2015.0 ml 485.0 ml Intake IV Total 185.0 ml 485.0 ml Output Urine Total 2200 ml # Voids 1 # Bowel Movements 4 1 Objective WDWN NAD reduced breath sounds bilaterally without rhonchi or wheeze trach [id number] without MRG NABS nontender no HSM; GT no CCE poor ROM and LOC krishnan reviewed and edited HEENT: status post trach Microbiology Date/Time Source Procedure Growth Status 10/21/19 14:20 Nasopharynx Coronavirus COVID-19 PCR ([facility]) - Final Complete Laboratory Tests 10/24/19 07:50: White Blood Count 21.3H, Red Blood Count 3.76L, Hemoglobin 11.1L, Hematocrit 32.4L, Mean Corpuscular Volume 86, Mean Corpuscular Hemoglobin 29.5, Mean Corpuscular Hemoglobin Concent 34.3, Red Cell Distribution Width 12.6, Platelet Count 411, Mean Platelet Volume 10.0, Neutrophils (%) (Auto) , Lymphocytes (%) ( Auto) , Monocytes (%) (Auto) , Eosinophils (%) (Auto) , Basophils (%) (Auto) , Neutrophils % (Manual) [Pending], Lymphocytes % (Manual) [Pending], Platelet Estimate [Pending], Platelet Morphology [Pending], Erythrocyte Sedimentation Rate [Pending], Sodium Level 143, Potassium Level 3.3L, Chloride Level 110H, Carbon Dioxide Level 26, Anion Gap 7, Blood Urea Nitrogen 5L, Creatinine 1.1, Estimat Glomerular Filtration Rate > 60, Glucose Level 100, Calcium Level 8.3L, Total Bilirubin 0.4, Aspartate Amino Transf (AST/SGOT) 24, Alanine Aminotransferase (ALT/SGPT) 31, Alkaline Phosphatase 67, C-Reactive Protein, Quantitative 4.8H, Total Protein 6.1L, Albumin 2.0L, Globulin 4.1, Albumin/ Globulin Ratio 0.5L Current Medications Medications (Trade) Dose Ordered Sig/Magda Route PRN Reason Start Time Stop Time Status Last Admin Dose Admin Acetaminophen (Tylenol) 650 mg Q4H PRN GT For Pain/FEVER 10/19/19 12:00 11/18/19 11:59 10/22/19 05:18 Albuterol Sulfate (Proventil) 2.5 mg Q6H PRN HHN Shortness of Breath 10/19/19 12:00 10/24/19 11:59 Amlodipine Besylate (Norvasc) 5 mg BID GT 10/19/19 18:00 11/18/19 17:59 10/23/19 18:24 Ascorbic Acid (Vitamin C) 500 mg DAILY GT 10/19/19 13:30 11/18/19 13:29 10/23/19 08:47 Bisacodyl (Dulcolax) 10 mg DAILY RECTAL 10/19/19 13:30 01/17/20 13:29 10/23/19 08:47 Bisacodyl (Dulcolax) 10 mg DAILYPRN PRN RECTAL Constipation 10/21/19 09:45 01/19/20 09:44 Calcium Carbonate (Tums) 500 mg DAILY GT 10/20/19 09:00 01/18/20 08:59 10/23/19 08:47 Clonidine HCl (Catapres Tab) 0.1 mg Q6HR GT 10/19/19 13:30 01/17/20 13:29 10/24/19 05:35 Dextrose (Dextrose 50%) 25 ml Q30M PRN IV Hypoglycemia 10/19/19 12:00 01/17/20 11:59 Dextrose (Dextrose 50%) 50 ml Q30M PRN IV Hypoglycemia 10/19/19 12:00 01/17/20 11:59 Dextrose/ Electrolytes 1,000 ml @ 75 mls/hr [id number] IV 10/21/19 15:00 11/20/19 14:59 10/23/19 21:13 Docusate Sodium (Colace) 100 mg DAILY ORAL 10/20/19 09:00 11/19/19 08:59 10/23/19 08:47 Doxazosin Mesylate (Cardura) 2 mg BEDTIME GT 10/19/19 21:00 11/18/19 20:59 10/23/19 21:14 Finasteride (Proscar) 5 mg DAILY ORAL 10/20/19 09:00 01/18/20 08:59 10/23/19 08:47 Heparin Sodium (Porcine) (Heparin 5000 units/ml) 5,000 units EVERY 12 HOURS SUBQ 10/19/19 21:00 12/03/19 20:59 10/23/19 21:14 Hydralazine HCl (Apresoline) 50 mg EVERY 8 HOURS GT 10/19/19 14:00 01/17/20 13:59 10/24/19 05:35 Insulin Aspart (NovoLOG) BEFORE MEALS AND HS SUBQ 10/19/19 16:30 01/17/20 16:29 10/22/19 16:35 Insulin Detemir (Levemir) 35 units BID SUBQ 10/19/19 18:00 01/17/20 17:59 10/23/19 18:25 Lactulose (Cephulac) 20 gm THREE TIMES A DAY ORAL 10/21/19 09:45 11/20/19 09:44 10/23/19 18:24 Magnesium Hydroxide (Mom) 30 ml DAILY PRN GT Constipation 10/19/19 12:00 11/18/19 11:59 Metoprolol Tartrate (Lopressor) 25 mg EVERY 12 HOURS GT 10/19/19 21:00 01/17/20 20:59 10/23/19 22:49 Piperacillin Sod/ Tazobactam Sod 3.375 gm/Sodium Chloride 110 ml @ 27.5 mls/hr Q8H IVPB 10/23/19 12:00 10/30/19 11:59 10/24/19 04:39 Polyethylene Glycol (Miralax) 17 gm DAILYPRN PRN ORAL Constipation 10/21/19 09:45 11/20/19 09:44 Saccharomyces Boulardii (Florastor) 250 mg TWICE A DAY GT 10/19/19 18:00 01/17/20 17:59 10/23/19 18:24 Sitagliptin Phosphate (Januvia) 100 mg DAILY GT 10/20/19 09:00 11/19/19 08:59 10/23/19 08:47 Sucralfate (Carafate) 1 gm Q6HR GT 10/19/19 13:30 01/17/20 13:29 10/24/19 05:35 Tamsulosin HCl (Flomax) 0.4 mg DAILY ORAL 10/20/19 09:00 11/19/19 08:59 10/23/19 08:47 Silver Diaz MD Oct 24, 2019 08:46
[2019-10-24] MEDS: Ascorbic Acid 500mg tab GT SCH (08:58)
[2019-10-24] MEDS: Docusate 100mg cap ORAL SCH (08:58)
[2019-10-24] MEDS: Tums 500mg GT SCH (08:58)
[2019-10-24] MEDS: Lactulose 20gm/30ml UDC ORAL SCH ×3 (08:58→17:30)
[2019-10-24] MEDS: Tamsulosin 0.4mg cap ORAL SCH (08:58)
[2019-10-24] MEDS: Levemir Flexpen SUBQ SCH ×2 (09:00→17:33)
[2019-10-24] MEDS: Heparin 5000 units/ml inj SUBQ SCH ×2 (09:00→21:37)
--- NOTE | 2019-10-24 09:01 | General Progress Note ---
Assessment/Plan Problem List: (1) UTI (urinary tract infection) ICD Codes: N39.0 - Urinary tract infection, site not specified SNOMED: 14405497 (2) Encephalopathy acute ICD Codes: G93.40 - Encephalopathy, unspecified SNOMED: 9890279 (3) Leukocytosis ICD Codes: D72.829 - Elevated white blood cell count, unspecified SNOMED: 856886759 (4) Sepsis ICD Codes: A41.9 - Sepsis, unspecified organism SNOMED: 69097365 (5) Acute urinary tract infection (6) Diabetes mellitus out of control ICD Codes: E11.9 - Diabetes mellitus out of control SNOMED: 146050975 (7) G tube feedings ICD Codes: Z93.1 - G tube feedings SNOMED: 249201157 (8) Septicemia (9) Fecal impaction ICD Codes: K56.41 - Fecal impaction SNOMED: 59469995 (10) Krishnan catheter problem ICD Codes: T83.9XXA - Unsp complication of genitourinary prosth dev/grft, init SNOMED: 875342152 Status: stable, progressing Assessment/Plan: cont iv abx check renal US- r/o perinephric abscess. Per radiology department cannot be done until COVID-19 is back krishnan care monitor bs bowel regime feeds dc ivf replace k vent prn resp rx BP rx tried to leave message with son but telephone full. Subjective ROS Limited/Unobtainable: Yes Constitutional: Reports: malaise, weakness HEENT: Reports: no symptoms Cardiovascular: Reports: no symptoms Respiratory: Reports: shortness of breath, sputum Gastrointestinal/Abdominal: Reports: difficulty swallowing Genitourinary: Reports: no symptoms Endocrine: Reports: no symptoms Hematologic/Lymphatic: Reports: anemia Allergies: Coded Allergies: No Known Allergies (Unverified , 02/11/13) All Systems: reviewed and negative except above Subjective no events. Id and pulm appreciated. wbc higher. having BMs. on iv abx. on trach collar. nonverbal at baseline. Blood cultures and urine cultures noted. IV antibiotics changed to Zosyn by infectious disease partner management consultant. Per radiology renal ultrasound cannot be done until patient is ruled out for COVID-19 Objective Last 24 Hour Vital Signs Date Time Temp Pulse Resp B/P (MAP) Pulse Ox O2 Delivery O2 Flow Rate FiO2 4/30/20 05:35 145/68 10/24/19 05:35 145/68 10/24/19 04:00 98.4 74 24 145/68 (93) 97 10/24/19 00:51 98 T-Piece 8.0 30 10/24/19 00:00 117/61 10/24/19 00:00 97.5 59 24 117/61 (79) 99 10/23/19 22:49 70 140/71 10/23/19 22:48 140/71 10/23/19 21:00 T-piece 9.0 10/23/19 20:00 98.2 70 24 140/71 (94) 99 10/23/19 19:42 97 T-Piece 8.0 30 10/23/19 19:41 75 20 97 T-Piece 8.0 30 10/23/19 18:24 141/74 10/23/19 18:24 75 141/74 10/23/19 16:00 98.1 75 20 141/74 (96) 100 10/23/19 14:07 142/80 10/23/19 13:57 96 T-Piece 8.0 30 10/23/19 12:00 97.3 70 20 142/80 (100) 97 10/23/19 11:54 145/75 10/23/19 09:48 97 T-Piece 8.0 30 10/23/19 09:08 72 20 97 T-Piece 8.0 30 10/23/19 09:00 T-piece 9.0 Intake and Output 10/23/19 10/24/19 19:00 07:00 Intake Total 185.0 ml 485.0 ml Output Total 2200 ml Balance -2015.0 ml 485.0 ml Intake IV Total 185.0 ml 485.0 ml Output Urine Total 2200 ml # Voids 1 # Bowel Movements 4 1 Laboratory Tests 10/24/19 07:50: White Blood Count 21.3H, Red Blood Count 3.76L, Hemoglobin 11.1L, Hematocrit 32.4L, Mean Corpuscular Volume 86, Mean Corpuscular Hemoglobin 29.5, Mean Corpuscular Hemoglobin Concent 34.3, Red Cell Distribution Width 12.6, Platelet Count 411, Mean Platelet Volume 10.0, Neutrophils (%) (Auto) , Lymphocytes (%) ( Auto) , Monocytes (%) (Auto) , Eosinophils (%) (Auto) , Basophils (%) (Auto) , Neutrophils % (Manual) [Pending], Lymphocytes % (Manual) [Pending], Platelet Estimate [Pending], Platelet Morphology [Pending], Erythrocyte Sedimentation Rate [Pending], Sodium Level 143, Potassium Level 3.3L, Chloride Level 110H, Carbon Dioxide Level 26, Anion Gap 7, Blood Urea Nitrogen 5L, Creatinine 1.1, Estimat Glomerular Filtration Rate > 60, Glucose Level 100, Calcium Level 8.3L, Total Bilirubin 0.4, Aspartate Amino Transf (AST/SGOT) 24, Alanine Aminotransferase (ALT/SGPT) 31, Alkaline Phosphatase 67, C-Reactive Protein, Quantitative 4.8H, Total Protein 6.1L, Albumin 2.0L, Globulin 4.1, Albumin/ Globulin Ratio 0.5L Height (Feet): 5 Height (Inches): 10.00 Weight (Pounds): 189 Objective General Appearance: WD/WN, lethargic, confused EENT: normal ENT inspection Neck: non-tender, normal alignment, supple Cardiovascular: normal peripheral pulses, normal rate, regular rhythm Respiratory/Chest: lungs clear, normal breath sounds, no respiratory distress, no accessory muscle use Abdomen: normal bowel sounds, non tender, soft, no organomegaly Edema: no edema noted Arm (L), no edema noted Arm (R), no edema noted Leg (L), no edema noted Leg (R), no edema noted Pedal (L), no edema noted Pedal (R), no edema noted Generalized Neurologic: disoriented, unresponsive, aphasia Skin: normal pigmentation Jeremiah Perkins MD Oct 24, 2019 09:01
--- NOTE | 2019-10-24 10:53 | Diagnostic Imaging Report ---
Indication: Abnormal renal function tests, microhematuria Technique: Grayscale and duplex images of the kidneys, retroperitoneum, and bladder were obtained. Comparison: Abdominal sonogram dated 08/13/2018 Findings: Right kidney measures 11.2 cm in length. Left kidney measures 12 cm in length. Both kidneys demonstrate normal echogenicity. No hydronephrosis. The right kidney demonstrates an echogenic focus in the renal sinus that measures 4 mm in diameter. There is a 11 mm right parapelvic cyst. The left kidney demonstrates a 2.6 cm parapelvic cyst.. Nonvisualized inferior vena cava. Bladder is empty, contains a Peters catheter. Impression: Negative for hydronephrosis Questionable 4 mm right renal calyceal calculus Empty bladder with a Peters catheter Incidental finding bilateral renal parapelvic cysts.
[2019-10-24 12:00] VITALS: BP 131/77
--- NOTE | 2019-10-24 13:24 | Infectious Diseases Prog Note ---
Assessment/Plan Assessment/Plan 1. Klebsiella & Enterococcus sepsis 2. E.coli & Providencia UTI 3. COVID19 X 1: negative 4. diabetes mellitus 5. hypertension 6. CVA P 1. Continue Zosyn 2. will follow up cultures 3. Repeat COVID19 test Subjective ROS Limited/Unobtainable: Yes Constitutional: Denies: fever Allergies: Coded Allergies: No Known Allergies (Unverified , 02/11/13) Objective Vital Signs Last 24 Hour Vital Signs Date Time Temp Pulse Resp B/P (MAP) Pulse Ox O2 Delivery O2 Flow Rate FiO2 10/24/19 12:37 131/77 10/24/19 12:00 98.5 83 22 131/77 (95) 99 10/24/19 09:00 T-piece 9.0 10/24/19 08:59 74 145/68 10/24/19 08:59 74 145/68 10/24/19 08:00 98.7 78 22 138/69 (92) 98 10/24/19 05:35 145/68 10/24/19 05:35 145/68 10/24/19 04:00 98.4 74 24 145/68 (93) 97 10/24/19 00:51 98 T-Piece 8.0 30 10/24/19 00:00 117/61 10/24/19 00:00 97.5 59 24 117/61 (79) 99 10/23/19 22:49 70 140/71 10/23/19 22:48 140/71 10/23/19 21:00 T-piece 9.0 10/23/19 20:00 98.2 70 24 140/71 (94) 99 10/23/19 19:42 97 T-Piece 8.0 30 10/23/19 19:41 75 20 97 T-Piece 8.0 30 10/23/19 18:24 141/74 10/23/19 18:24 75 141/74 10/23/19 16:00 98.1 75 20 141/74 (96) 100 10/23/19 14:07 142/80 10/23/19 13:57 96 T-Piece 8.0 30 Height (Feet): 5 Height (Inches): 10.00 Weight (Pounds): 189 HEENT: status post trach Respiratory/Chest: other - on Tbar Cardiovascular: normal rate Abdomen: other - GT feeding Genitourinary: other - Peters catheter Neurologic/Psychiatric: aphasia Microbiology Date/Time Source Procedure Growth Status 10/21/19 14:20 Nasopharynx Coronavirus COVID-19 PCR ([facility]) - Final Complete Laboratory Tests Test 10/24/19 07:50 White Blood Count 21.3 K/UL (4.8-10.8) H Red Blood Count 3.76 M/UL (4.70-6.10) L Hemoglobin 11.1 G/DL (14.2-18.0) L Hematocrit 32.4 % (42.0-52.0) L Mean Corpuscular Volume 86 FL (80-99) Mean Corpuscular Hemoglobin 29.5 PG (27.0-31.0) Mean Corpuscular Hemoglobin Concent 34.3 G/DL (32.0-36.0) Red Cell Distribution Width 12.6 % (11.6-14.8) Platelet Count 411 K/UL (150-450) Mean Platelet Volume 10.0 FL (6.5-10.1) Neutrophils (%) (Auto) % (45.0-75.0) Lymphocytes (%) (Auto) % (20.0-45.0) Monocytes (%) (Auto) % (1.0-10.0) Eosinophils (%) (Auto) % (0.0-3.0) Basophils (%) (Auto) % (0.0-2.0) Differential Total Cells Counted 100 Neutrophils % (Manual) 83 % (45-75) H Lymphocytes % (Manual) 7 % (20-45) L Monocytes % (Manual) 5 % (1-10) Eosinophils % (Manual) 4 % (0-3) H Basophils % (Manual) 1 % (0-2) Band Neutrophils 0 % (0-8) Platelet Estimate Adequate Platelet Morphology Normal Hypochromasia 1+ Anisocytosis 1+ Erythrocyte Sedimentation Rate 99 MM/HR (0-20) H Sodium Level 143 MMOL/L (136-145) Potassium Level 3.3 MMOL/L (3.5-5.1) L Chloride Level 110 MMOL/L (98-107) H Carbon Dioxide Level 26 MMOL/L (21-32) Anion Gap 7 mmol/L (5-15) Blood Urea Nitrogen 5 mg/dL (7-18) L Creatinine 1.1 MG/DL (0.55-1.30) Estimat Glomerular Filtration Rate > 60 mL/min (>60) Glucose Level 100 MG/DL (74-106) Calcium Level 8.3 MG/DL (8.5-10.1) L Total Bilirubin 0.4 MG/DL (0.2-1.0) Aspartate Amino Transf (AST/SGOT) 24 U/L (15-37) Alanine Aminotransferase (ALT/SGPT) 31 U/L (12-78) Alkaline Phosphatase 67 U/L (46-116) C-Reactive Protein, Quantitative 4.8 mg/dL (0.00-0.90) H Total Protein 6.1 G/DL (6.4-8.2) L Albumin 2.0 G/DL (3.4-5.0) L Globulin 4.1 g/dL Albumin/Globulin Ratio 0.5 (1.0-2.7) L Current Medications Medications (Trade) Dose Ordered Sig/Magda Route PRN Reason Start Time Stop Time Status Last Admin Dose Admin Acetaminophen (Tylenol) 650 mg Q4H PRN GT For Pain/FEVER 10/19/19 12:00 11/18/19 11:59 10/22/19 05:18 Amlodipine Besylate (Norvasc) 5 mg BID GT 10/19/19 18:00 11/18/19 17:59 10/24/19 08:59 Ascorbic Acid (Vitamin C) 500 mg DAILY GT 10/19/19 13:30 11/18/19 13:29 10/24/19 08:58 Bisacodyl (Dulcolax) 10 mg DAILY RECTAL 10/19/19 13:30 01/17/20 13:29 10/24/19 08:58 Bisacodyl (Dulcolax) 10 mg DAILYPRN PRN RECTAL Constipation 10/21/19 09:45 01/19/20 09:44 Calcium Carbonate (Tums) 500 mg DAILY GT 10/20/19 09:00 01/18/20 08:59 10/24/19 08:58 Clonidine HCl (Catapres Tab) 0.1 mg Q6HR GT 10/19/19 13:30 01/17/20 13:29 10/24/19 12:37 Dextrose (Dextrose 50%) 25 ml Q30M PRN IV Hypoglycemia 4/25/20 12:00 01/17/20 11:59 Dextrose (Dextrose 50%) 50 ml Q30M PRN IV Hypoglycemia 10/19/19 12:00 01/17/20 11:59 Docusate Sodium (Colace) 100 mg DAILY ORAL 10/20/19 09:00 11/19/19 08:59 10/24/19 08:58 Doxazosin Mesylate (Cardura) 2 mg BEDTIME GT 10/19/19 21:00 11/18/19 20:59 10/23/19 21:14 Finasteride (Proscar) 5 mg DAILY ORAL 10/20/19 09:00 01/18/20 08:59 10/24/19 08:58 Heparin Sodium (Porcine) (Heparin 5000 units/ml) 5,000 units EVERY 12 HOURS SUBQ 10/19/19 21:00 12/03/19 20:59 10/24/19 09:00 Hydralazine HCl (Apresoline) 50 mg EVERY 8 HOURS GT 10/19/19 14:00 01/17/20 13:59 10/24/19 05:35 Insulin Aspart (NovoLOG) BEFORE MEALS AND HS SUBQ 10/19/19 16:30 01/17/20 16:29 10/22/19 16:35 Insulin Detemir (Levemir) 35 units BID SUBQ 10/19/19 18:00 01/17/20 17:59 10/23/19 18:25 Lactulose (Cephulac) 20 gm THREE TIMES A DAY ORAL 10/21/19 09:45 11/20/19 09:44 10/24/19 12:37 Magnesium Hydroxide (Mom) 30 ml DAILY PRN GT Constipation 10/19/19 12:00 11/18/19 11:59 Metoprolol Tartrate (Lopressor) 25 mg EVERY 12 HOURS GT 10/19/19 21:00 01/17/20 20:59 10/24/19 08:59 Piperacillin Sod/ Tazobactam Sod 3.375 gm/Sodium Chloride 110 ml @ 27.5 mls/hr Q8H IVPB 10/23/19 12:00 10/30/19 11:59 10/24/19 12:37 Polyethylene Glycol (Miralax) 17 gm DAILYPRN PRN ORAL Constipation 10/21/19 09:45 11/20/19 09:44 Saccharomyces Boulardii (Florastor) 250 mg TWICE A DAY GT 10/19/19 18:00 01/17/20 17:59 10/24/19 08:58 Sitagliptin Phosphate (Januvia) 100 mg DAILY GT 10/20/19 09:00 11/19/19 08:59 10/24/19 08:58 Sucralfate (Carafate) 1 gm Q6HR GT 10/19/19 13:30 01/17/20 13:29 10/24/19 12:37 Tamsulosin HCl (Flomax) 0.4 mg DAILY ORAL 10/20/19 09:00 11/19/19 08:59 10/24/19 08:58 Kuldip Rosado MD Oct 24, 2019 13:24
[2019-10-24 16:00] VITALS: BP 127/75
--- NOTE | 2019-10-24 17:03 | Surgery Progress Note ---
Surgery Progress Note Subjective Additional Comments worsening leukocytosis clinically exam stable no nov/f/c abd soft nt/nd Objective Last 24 Hour Vital Signs Date Time Temp Pulse Resp B/P (MAP) Pulse Ox O2 Delivery O2 Flow Rate FiO2 10/24/19 16:00 98.6 78 20 127/75 (92) 95 10/24/19 13:45 131/77 10/24/19 12:37 131/77 10/24/19 12:00 98.5 83 22 131/77 (95) 99 10/24/19 09:00 T-piece 9.0 10/24/19 08:59 74 145/68 10/24/19 08:59 74 145/68 10/24/19 08:08 70 20 98 T-Piece 8.0 30 10/24/19 08:08 98 T-Piece 8.0 30 10/24/19 08:00 98.7 78 22 138/69 (92) 98 10/24/19 05:35 145/68 10/24/19 05:35 145/68 10/24/19 04:00 98.4 74 24 145/68 (93) 97 10/24/19 00:51 98 T-Piece 8.0 30 10/24/19 00:00 117/61 10/24/19 00:00 97.5 59 24 117/61 (79) 99 10/23/19 22:49 70 140/71 10/23/19 22:48 140/71 10/23/19 21:00 T-piece 9.0 10/23/19 20:00 98.2 70 24 140/71 (94) 99 10/23/19 19:42 97 T-Piece 8.0 30 10/23/19 19:41 75 20 97 T-Piece 8.0 30 10/23/19 18:24 141/74 10/23/19 18:24 75 141/74 I&O Intake and Output 10/23/19 10/24/19 19:00 07:00 Intake Total 185.0 ml 485.0 ml Output Total 2200 ml Balance -2015.0 ml 485.0 ml Intake IV Total 185.0 ml 485.0 ml Output Urine Total 2200 ml # Voids 1 # Bowel Movements 4 1 Dressing: dry Wound: clean Cardiovascular: RSR Respiratory: clear, decreased breath sounds Abdomen: soft, non-tender, present bowel sounds Extremities: no tenderness, no cyanosis, other Laboratory Tests Test 10/24/19 07:50 White Blood Count 21.3 K/UL (4.8-10.8) H Red Blood Count 3.76 M/UL (4.70-6.10) L Hemoglobin 11.1 G/DL (14.2-18.0) L Hematocrit 32.4 % (42.0-52.0) L Mean Corpuscular Volume 86 FL (80-99) Mean Corpuscular Hemoglobin 29.5 PG (27.0-31.0) Mean Corpuscular Hemoglobin Concent 34.3 G/DL (32.0-36.0) Red Cell Distribution Width 12.6 % (11.6-14.8) Platelet Count 411 K/UL (150-450) Mean Platelet Volume 10.0 FL (6.5-10.1) Neutrophils (%) (Auto) % (45.0-75.0) Lymphocytes (%) (Auto) % (20.0-45.0) Monocytes (%) (Auto) % (1.0-10.0) Eosinophils (%) (Auto) % (0.0-3.0) Basophils (%) (Auto) % (0.0-2.0) Differential Total Cells Counted 100 Neutrophils % (Manual) 83 % (45-75) H Lymphocytes % (Manual) 7 % (20-45) L Monocytes % (Manual) 5 % (1-10) Eosinophils % (Manual) 4 % (0-3) H Basophils % (Manual) 1 % (0-2) Band Neutrophils 0 % (0-8) Platelet Estimate Adequate Platelet Morphology Normal Hypochromasia 1+ Anisocytosis 1+ Erythrocyte Sedimentation Rate 99 MM/HR (0-20) H Sodium Level 143 MMOL/L (136-145) Potassium Level 3.3 MMOL/L (3.5-5.1) L Chloride Level 110 MMOL/L (98-107) H Carbon Dioxide Level 26 MMOL/L (21-32) Anion Gap 7 mmol/L (5-15) Blood Urea Nitrogen 5 mg/dL (7-18) L Creatinine 1.1 MG/DL (0.55-1.30) Estimat Glomerular Filtration Rate > 60 mL/min (>60) Glucose Level 100 MG/DL (74-106) Calcium Level 8.3 MG/DL (8.5-10.1) L Total Bilirubin 0.4 MG/DL (0.2-1.0) Aspartate Amino Transf (AST/SGOT) 24 U/L (15-37) Alanine Aminotransferase (ALT/SGPT) 31 U/L (12-78) Alkaline Phosphatase 67 U/L (46-116) C-Reactive Protein, Quantitative 4.8 mg/dL (0.00-0.90) H Total Protein 6.1 G/DL (6.4-8.2) L Albumin 2.0 G/DL (3.4-5.0) L Globulin 4.1 g/dL Albumin/Globulin Ratio 0.5 (1.0-2.7) L Plan Problems: (1) Deep tissue injury Assessment & Plan: sacral DTI noted on admission prior historical scar noted from healed wound wash daily with NS apply foam dressings turn q2h off load pressure pillow under legs will follow with recs thank you (2) Krishnan catheter problem Assessment & Plan: resolved urology place new krishnan functional (3) Failure to thrive Assessment & Plan: nutritional optimization DAILY ESTIMATED NEEDS: Needs based on DTI, DM 78kg adj 22-27 kcals/kg 9016-5290 total kcals 1.25-1.5 g protein/kg 98-117 g total protein 25-30 mL/kg 6465-9701 total fluid mLs NUTRITION DIAGNOSIS: Swallowing difficulty R/T respiratory status as evidenced by pt vent dep via T-collar w/ PEG feedings (CURRENT TF: Glucerna 1.5@ 30ml/hr - HELD) ENTERAL NUTRITION RECOMMENDATIONS: Glucerna 1.5 @60ml x20 hrs to provide 1200ml, 1800 kcal, 99g pro. 911ml free H2O - As medically able, resume TF's. Advance as tolerated 10ml/hr q4-6 hrs to goal. - Flush per MD/ HOB over 30 degrees ADDITIONAL RECOMMENDATIONS: - Change bed scale to [place] bed for accurate CBW - Monitor lytes daily on TF - When TF at goal is tolerated, rec KURTIS in 4oz H2O BID for wound care (4) Leukocytosis Assessment & Plan: uti abx given improved labs improved (5) Fecal impaction Assessment & Plan: Abundant inspissated stool distending the rectum. Proximally, there is gas throughout the colon. Suspected fecal impaction. No clear free air on exam that includes the dome of the right hemidiaphragm. Right femoral vascular catheter. Krishnan catheter. Lumbar dextrocurvature. Chronic height loss to the leftward L3 level. Suture material again noted. IMPRESSION: Suspected fecal impaction. will start bowel regimen and enema may need manual disimpaction will follow with recs thank you Findings: Gastrostomy tube noted. There is a right transfemoral central venous catheter. Krishnan catheter is noted. Surgical material noted in the pelvis. Bowel gas pattern is nonspecific but not overtly obstructive. Dense stool in the rectum. Decreased. Interstitial and airspace disease noted in the bilateral lower lungs. There are degenerative changes in the spine. Degenerative versus chronic post traumatic changes of the left femur. IMPRESSION: Nonspecific but not overtly obstructive bowel gas pattern. Interval decrease in dense stool in the rectum. Indwelling gastrostomy tube. Interstitial and airspace disease noted in the bilateral lower lungs. Additional findings as above. Additional Comments was lpan for d/c but acute worsening wbc AM labs Raheem Kolb Oct 24, 2019 17:03
[2019-10-24 20:00] VITALS: BP 122/67
[2019-10-24] MEDS: Doxazosin 1mg Tab GT SCH (21:34)
[2019-10-25] VITALS: BP 107/59
[2019-10-25] MEDS: Sucralfate 1gm tab GT SCH ×4 (01:43→18:00)
[2019-10-25 04:00] VITALS: BP 132/65
[2019-10-25] MEDS: Piperacillin/Tazobactam 3.375 GM in NS 110 ML IVPB SCH ×3 (04:14→21:28)
[2019-10-25] MEDS: HydrALAZINE 50mg tab GT SCH ×3 (05:51→22:00)
[2019-10-25] MEDS: NovoLOG Insulin Flexpen SUBQ SCH ×4 (06:20→21:00)
--- NOTE | 2019-10-25 07:55 | General Progress Note ---
Assessment/Plan Problem List: (1) UTI (urinary tract infection) ICD Codes: N39.0 - Urinary tract infection, site not specified SNOMED: 66234178 (2) Encephalopathy acute ICD Codes: G93.40 - Encephalopathy, unspecified SNOMED: 9866240 (3) Leukocytosis ICD Codes: D72.829 - Elevated white blood cell count, unspecified SNOMED: 478828588 (4) Sepsis ICD Codes: A41.9 - Sepsis, unspecified organism SNOMED: 02211712 (5) Acute urinary tract infection (6) Diabetes mellitus out of control ICD Codes: E11.9 - Diabetes mellitus out of control SNOMED: 581904911 (7) G tube feedings ICD Codes: Z93.1 - G tube feedings SNOMED: 801735805 (8) Septicemia (9) Fecal impaction ICD Codes: K56.41 - Fecal impaction SNOMED: 27607571 (10) Krishnan catheter problem ICD Codes: T83.9XXA - Unsp complication of genitourinary prosth dev/grft, init SNOMED: 385298950 Status: stable, progressing Assessment/Plan: cont iv abx check renal US- r/o perinephric abscess. Per radiology department cannot be done until COVID-19 is back krishnan care monitor bs bowel regime feeds follow up labs vent prn resp rx BP rx tried to leave message with son but telephone full. Subjective ROS Limited/Unobtainable: Yes Constitutional: Reports: malaise, weakness HEENT: Reports: no symptoms Cardiovascular: Reports: no symptoms Respiratory: Reports: cough, sputum Gastrointestinal/Abdominal: Reports: difficulty swallowing Genitourinary: Reports: no symptoms Neurologic/Psychiatric: Reports: pre-existing deficit Endocrine: Reports: no symptoms Hematologic/Lymphatic: Reports: anemia Allergies: Coded Allergies: No Known Allergies (Unverified , 02/11/13) All Systems: reviewed and negative except above Subjective no events. Id and pulm appreciated. wbc higher. having BMs. on iv abx. on trach collar. nonverbal at baseline. Blood cultures and urine cultures noted. IV antibiotics changed to Zosyn by infectious disease remediation bioanal[employer] consultant. covid neg x 1. awaiting 2nd covid. labs pending Objective Last 24 Hour Vital Signs Date Time Temp Pulse Resp B/P (MAP) Pulse Ox O2 Delivery O2 Flow Rate FiO2 10/25/19 05:51 132/65 10/25/19 05:51 132/65 10/25/19 04:00 97.5 86 20 132/65 (87) 96 10/25/19 01:05 97 T-Piece 8.0 30 10/25/19 00:00 107/59 10/25/19 00:00 97.5 61 18 107/59 (75) 96 10/24/19 21:36 122/67 10/24/19 21:34 72 122/67 10/24/19 21:00 T-piece 9.0 10/24/19 20:08 77 20 98 T-Piece 8.0 30 10/24/19 20:04 97 T-Piece 8.0 30 10/24/19 20:00 97.9 72 18 122/67 (85) 96 10/24/19 17:30 78 127/75 10/24/19 17:29 127/75 10/24/19 16:00 98.6 78 20 127/75 (92) 95 10/24/19 13:45 131/77 10/24/19 13:33 97 T-Piece 8.0 30 10/24/19 12:37 131/77 10/24/19 12:00 98.5 83 22 131/77 (95) 99 10/24/19 09:00 T-piece 9.0 10/24/19 08:59 74 145/68 10/24/19 08:59 74 145/68 10/24/19 08:08 70 20 98 T-Piece 8.0 30 10/24/19 08:08 98 T-Piece 8.0 30 10/24/19 08:00 98.7 78 22 138/69 (92) 98 Intake and Output 10/24/19 10/25/19 19:00 07:00 Intake Total 330 ml Output Total 1000 ml 900 ml Balance -670 ml -900 ml Tube Feeding 330 ml Output Urine Total 1000 ml 900 ml # Bowel Movements 1 1 Height (Feet): 5 Height (Inches): 10.00 Weight (Pounds): 189 Objective General Appearance: WD/WN, lethargic, confused EENT: normal ENT inspection Neck: non-tender, normal alignment, supple Cardiovascular: normal peripheral pulses, normal rate, regular rhythm Respiratory/Chest: lungs clear, normal breath sounds, no respiratory distress, no accessory muscle use Abdomen: normal bowel sounds, non tender, soft, no organomegaly Edema: no edema noted Arm (L), no edema noted Arm (R), no edema noted Leg (L), no edema noted Leg (R), no edema noted Pedal (L), no edema noted Pedal (R), no edema noted Generalized Neurologic: disoriented, unresponsive, aphasia Skin: normal pigmentation Jeremiah Perkins MD October 25, 2019 07:55
[2019-10-25 08:00] VITALS: BP 150/72
--- NOTE | 2019-10-25 08:16 | Pulmonology Progress Note ---
Assessment/Plan Assessment/Plan IMPRESSION Respiratory failure trach possible UTI possible sepsis urinary retention functional Quad CVA sepsis BCX+ PLAN respiratory care as is trach care and off vent as able oxygen IV antibiotics reviewed ID reviewed urology followup maintain SNF meds as is aspiration precautions dc back to SNF when stable and cleared monitor UO/ maintain krishnan impression, plan, and exam edited and reviewed in detail care discussed with RN Subjective ROS Limited/Unobtainable: Yes Constitutional: Denies: fever Allergies: Coded Allergies: No Known Allergies (Unverified , 02/11/13) All Systems: reviewed and negative except above Subjective bcx+ UCx + wbc elevated antibiotics noted respiratory noted on trach collar and off vent Objective Last 24 Hour Vital Signs Date Time Temp Pulse Resp B/P (MAP) Pulse Ox O2 Delivery O2 Flow Rate FiO2 10/25/19 05:51 132/65 10/25/19 05:51 132/65 10/25/19 04:00 97.5 86 20 132/65 (87) 96 10/25/19 01:05 97 T-Piece 8.0 30 10/25/19 00:00 107/59 10/25/19 00:00 97.5 61 18 107/59 (75) 96 10/24/19 21:36 122/67 10/24/19 21:34 72 122/67 10/24/19 21:00 T-piece 9.0 10/24/19 20:08 77 20 98 T-Piece 8.0 30 10/24/19 20:04 97 T-Piece 8.0 30 10/24/19 20:00 97.9 72 18 122/67 (85) 96 10/24/19 17:30 78 127/75 10/24/19 17:29 127/75 10/24/19 16:00 98.6 78 20 127/75 (92) 95 10/24/19 13:45 131/77 10/24/19 13:33 97 T-Piece 8.0 30 10/24/19 12:37 131/77 10/24/19 12:00 98.5 83 22 131/77 (95) 99 10/24/19 09:00 T-piece 9.0 10/24/19 08:59 74 145/68 10/24/19 08:59 74 145/68 Intake and Output 10/24/19 10/25/19 19:00 07:00 Intake Total 330 ml Output Total 1000 ml 900 ml Balance -670 ml -900 ml Tube Feeding 330 ml Output Urine Total 1000 ml 900 ml # Bowel Movements 1 1 Objective WDWN NAD reduced breath sounds bilaterally without rhonchi or wheeze trach [id number] without MRG NABS nontender no HSM; GT no CCE poor ROM and LOC krishnan reviewed and edited HEENT: status post trach Abdomen: other - GT feeding Genitourinary: other - Krishnan catheter Neurologic/Psychiatric: aphasia Current Medications Medications (Trade) Dose Ordered Sig/Magda Route PRN Reason Start Time Stop Time Status Last Admin Dose Admin Acetaminophen (Tylenol) 650 mg Q4H PRN GT For Pain/FEVER 10/19/19 12:00 11/18/19 11:59 10/22/19 05:18 Amlodipine Besylate (Norvasc) 5 mg BID GT 10/19/19 18:00 11/18/19 17:59 10/24/19 17:30 Ascorbic Acid (Vitamin C) 500 mg DAILY GT 10/19/19 13:30 11/18/19 13:29 10/24/19 08:58 Bisacodyl (Dulcolax) 10 mg DAILY RECTAL 10/19/19 13:30 01/17/20 13:29 10/24/19 08:58 Bisacodyl (Dulcolax) 10 mg DAILYPRN PRN RECTAL Constipation 10/21/19 09:45 01/19/20 09:44 Calcium Carbonate (Tums) 500 mg DAILY GT 10/20/19 09:00 01/18/20 08:59 10/24/19 08:58 Clonidine HCl (Catapres Tab) 0.1 mg Q6HR GT 10/19/19 13:30 01/17/20 13:29 10/25/19 05:51 Dextrose (Dextrose 50%) 25 ml Q30M PRN IV Hypoglycemia 10/19/19 12:00 01/17/20 11:59 Dextrose (Dextrose 50%) 50 ml Q30M PRN IV Hypoglycemia 10/19/19 12:00 01/17/20 11:59 Docusate Sodium (Colace) 100 mg DAILY ORAL 10/20/19 09:00 11/19/19 08:59 10/24/19 08:58 Doxazosin Mesylate (Cardura) 2 mg BEDTIME GT 10/19/19 21:00 11/18/19 20:59 10/24/19 21:34 Finasteride (Proscar) 5 mg DAILY ORAL 10/20/19 09:00 01/18/20 08:59 10/24/19 08:58 Heparin Sodium (Porcine) (Heparin 5000 units/ml) 5,000 units EVERY 12 HOURS SUBQ 10/19/19 21:00 12/03/19 20:59 10/24/19 21:37 Hydralazine HCl (Apresoline) 50 mg EVERY 8 HOURS GT 10/19/19 14:00 01/17/20 13:59 10/25/19 05:51 Insulin Aspart (NovoLOG) BEFORE MEALS AND HS SUBQ 10/19/19 16:30 01/17/20 16:29 10/22/19 16:35 Insulin Detemir (Levemir) 35 units BID SUBQ 10/19/19 18:00 01/17/20 17:59 10/24/19 17:33 Lactulose (Cephulac) 20 gm THREE TIMES A DAY ORAL 10/21/19 09:45 11/20/19 09:44 10/24/19 12:37 Magnesium Hydroxide (Mom) 30 ml DAILY PRN GT Constipation 10/19/19 12:00 11/18/19 11:59 Metoprolol Tartrate (Lopressor) 25 mg EVERY 12 HOURS GT 10/19/19 21:00 01/17/20 20:59 10/24/19 21:34 Piperacillin Sod/ Tazobactam Sod 3.375 gm/Sodium Chloride 110 ml @ 27.5 mls/hr Q8H IVPB 10/23/19 12:00 10/30/19 11:59 10/25/19 04:14 Polyethylene Glycol (Miralax) 17 gm DAILYPRN PRN ORAL Constipation 10/21/19 09:45 11/20/19 09:44 Saccharomyces Boulardii (Florastor) 250 mg TWICE A DAY GT 10/19/19 18:00 01/17/20 17:59 10/24/19 17:29 Sitagliptin Phosphate (Januvia) 100 mg DAILY GT 10/20/19 09:00 11/19/19 08:59 10/24/19 08:58 Sucralfate (Carafate) 1 gm Q6HR GT 10/19/19 13:30 01/17/20 13:29 10/25/19 05:51 Tamsulosin HCl (Flomax) 0.4 mg DAILY ORAL 10/20/19 09:00 11/19/19 08:59 10/24/19 08:58 Silver Diaz MD October 25, 2019 08:16
[2019-10-25] MEDS: Heparin 5000 units/ml inj SUBQ SCH ×2 (09:00→21:46)
[2019-10-25] MEDS: Tums 500mg GT SCH (09:00)
[2019-10-25] MEDS: Ascorbic Acid 500mg tab GT SCH (09:00)
[2019-10-25] MEDS: Lactulose 20gm/30ml UDC ORAL SCH ×3 (09:00→18:00)
[2019-10-25] MEDS: Tamsulosin 0.4mg cap ORAL SCH (09:00)
[2019-10-25] MEDS: Levemir Flexpen SUBQ SCH ×2 (09:00→18:00)
[2019-10-25 09:47] LABS: HEMATOCRIT 34.3 % (42.0-52.0); HEMOGLOBIN 11.8 G/DL (14.2-18.0); MEAN CORPUSCULAR VOLUME 86 FL (80-99); PLATELET COUNT 389 K/UL (150-450); RED BLOOD COUNT 3.97 M/UL (4.70-6.10); RED CELL DISTRIBUTION WIDTH 13.1 % (11.6-14.8); WHITE BLOOD COUNT 19.9 K/UL (4.8-10.8)
[2019-10-25 10:05] LABS: ALANINE AMINOTRANSFERASE 22 U/L (12-78); ALBUMIN 2.1 G/DL (3.4-5.0); ALBUMIN/GLOBULIN RATIO 0.5 (1.0-2.7); ALKALINE PHOSPHATASE 75 U/L (46-116); ANION GAP 7 mmol/L (5-15); ASPARTATE AMINO TRANSFERASE 25 U/L (15-37); BILIRUBIN,TOTAL 0.3 MG/DL (0.2-1.0); BLOOD UREA NITROGEN 9 mg/dL (7-18); CALCIUM 8.6 MG/DL (8.5-10.1); CARBON DIOXIDE 24 MMOL/L (21-32); CHLORIDE 110 MMOL/L (98-107); CREATININE 1.1 MG/DL (0.55-1.30); SODIUM 141 MMOL/L (136-145)
--- NOTE | 2019-10-25 11:00 | Infectious Diseases Prog Note ---
"Assessment/Plan Assessment/Plan antibiotics : zosyn A 1. klebsiella | enterococcus sepsis 2. e.coli | providencia UTI 3. COVID 19 test negative 4. diabetes mellitus 5. hypertension 6. CVA P 1. continue zosyn 3 more days 2. will follow up cultures Subjective ROS Limited/Unobtainable: Yes Allergies: Coded Allergies: No Known Allergies (Unverified , 02/11/13) Objective Vital Signs Last 24 Hour Vital Signs Date Time Temp Pulse Resp B/P (MAP) Pulse Ox O2 Delivery O2 Flow Rate FiO2 10/25/19 08:00 97.5 88 19 150/72 (98) 96 10/25/19 05:51 132/65 10/25/19 05:51 132/65 10/25/19 04:00 97.5 86 20 132/65 (87) 96 10/25/19 01:05 97 T-Piece 8.0 30 10/25/19 00:00 107/59 10/25/19 00:00 97.5 61 18 107/59 (75) 96 10/24/19 21:36 122/67 10/24/19 21:34 72 122/67 10/24/19 21:00 T-piece 9.0 10/24/19 20:08 77 20 98 T-Piece 8.0 30 10/24/19 20:04 97 T-Piece 8.0 30 10/24/19 20:00 97.9 72 18 122/67 (85) 96 10/24/19 17:30 78 127/75 10/24/19 17:29 127/75 10/24/19 16:00 98.6 78 20 127/75 (92) 95 10/24/19 13:45 131/77 10/24/19 13:33 97 T-Piece 8.0 30 10/24/19 12:37 131/77 10/24/19 12:00 98.5 83 22 131/77 (95) 99 Height (Feet): 5 Height (Inches): 10.00 Weight (Pounds): 189 Laboratory Tests Test 10/25/19 09:20 White Blood Count 19.9 K/UL (4.8-10.8) H Red Blood Count 3.97 M/UL (4.70-6.10) L Hemoglobin 11.8 G/DL (14.2-18.0) L Hematocrit 34.3 % (42.0-52.0) L Mean Corpuscular Volume 86 FL (80-99) Mean Corpuscular Hemoglobin 29.6 PG (27.0-31.0) Mean Corpuscular Hemoglobin Concent 34.2 G/DL (32.0-36.0) Red Cell Distribution Width 13.1 % (11.6-14.8) Platelet Count 389 K/UL (150-450) Mean Platelet Volume 9.9 FL (6.5-10.1) Neutrophils (%) (Auto) % (45.0-75.0) Lymphocytes (%) (Auto) % (20.0-45.0) Monocytes (%) (Auto) % (1.0-10.0) Eosinophils (%) (Auto) % (0.0-3.0) Basophils (%) (Auto) % (0.0-2.0) Differential Total Cells Counted 100 Neutrophils % (Manual) 76 % (45-75) H Lymphocytes % (Manual) 10 % (20-45) L Monocytes % (Manual) 11 % (1-10) H Eosinophils % (Manual) 3 % (0-3) Basophils % (Manual) 0 % (0-2) Band Neutrophils 0 % (0-8) Platelet Estimate Adequate Platelet Morphology Normal Erythrocyte Sedimentation Rate Pending Sodium Level 141 MMOL/L (136-145) Potassium Level 4.0 MMOL/L (3.5-5.1) Chloride Level 110 MMOL/L (98-107) H Carbon Dioxide Level 24 MMOL/L (21-32) Anion Gap 7 mmol/L (5-15) Blood Urea Nitrogen 9 mg/dL (7-18) Creatinine 1.1 MG/DL (0.55-1.30) Estimat Glomerular Filtration Rate > 60 mL/min (>60) Glucose Level 164 MG/DL (74-106) H Calcium Level 8.6 MG/DL (8.5-10.1) Total Bilirubin 0.3 MG/DL (0.2-1.0) Aspartate Amino Transf (AST/SGOT) 25 U/L (15-37) Alanine Aminotransferase (ALT/SGPT) 22 U/L (12-78) Alkaline Phosphatase 75 U/L (46-116) C-Reactive Protein, Quantitative 5.7 mg/dL (0.00-0.90) H Total Protein 6.4 G/DL (6.4-8.2) Albumin 2.1 G/DL (3.4-5.0) L Globulin 4.3 g/dL Albumin/Globulin Ratio 0.5 (1.0-2.7) L Current Medications Medications (Trade) Dose Ordered Sig/Magda Route PRN Reason Start Time Stop Time Status Last Admin Dose Admin Acetaminophen (Tylenol) 650 mg Q4H PRN GT For Pain/FEVER 10/19/19 12:00 11/18/19 11:59 10/22/19 05:18 Amlodipine Besylate (Norvasc) 5 mg BID GT 10/19/19 18:00 11/18/19 17:59 10/24/19 17:30 Ascorbic Acid (Vitamin C) 500 mg DAILY GT 10/19/19 13:30 11/18/19 13:29 10/24/19 08:58 Bisacodyl (Dulcolax) 10 mg DAILY RECTAL 10/19/19 13:30 01/17/20 13:29 10/24/19 08:58 Bisacodyl (Dulcolax) 10 mg DAILYPRN PRN RECTAL Constipation 10/21/19 09:45 01/19/20 09:44 Calcium Carbonate (Tums) 500 mg DAILY GT 10/20/19 09:00 01/18/20 08:59 10/24/19 08:58 Clonidine HCl (Catapres Tab) 0.1 mg Q6HR GT 10/19/19 13:30 01/17/20 13:29 10/25/19 05:51 Dextrose (Dextrose 50%) 25 ml Q30M PRN IV Hypoglycemia 10/19/19 12:00 01/17/20 11:59 Dextrose (Dextrose 50%) 50 ml Q30M PRN IV Hypoglycemia 10/19/19 12:00 01/17/20 11:59 Docusate Sodium (Colace) 100 mg DAILY ORAL 10/20/19 09:00 11/19/19 08:59 10/24/19 08:58 Doxazosin Mesylate (Cardura) 2 mg BEDTIME GT 10/19/19 21:00 11/18/19 20:59 10/24/19 21:34 Finasteride (Proscar) 5 mg DAILY ORAL 10/20/19 09:00 01/18/20 08:59 10/24/19 08:58 Heparin Sodium (Porcine) (Heparin 5000 units/ml) 5,000 units EVERY 12 HOURS SUBQ 10/19/19 21:00 12/03/19 20:59 10/24/19 21:37 Hydralazine HCl (Apresoline) 50 mg EVERY 8 HOURS GT 10/19/19 14:00 01/17/20 13:59 10/25/19 05:51 Insulin Aspart (NovoLOG) BEFORE MEALS AND HS SUBQ 10/19/19 16:30 01/17/20 16:29 10/22/19 16:35 Insulin Detemir (Levemir) 35 units BID SUBQ 10/19/19 18:00 01/17/20 17:59 10/24/19 17:33 Lactulose (Cephulac) 20 gm THREE TIMES A DAY ORAL 10/21/19 09:45 11/20/19 09:44 10/24/19 12:37 Magnesium Hydroxide (Mom) 30 ml DAILY PRN GT Constipation 10/19/19 12:00 11/18/19 11:59 Metoprolol Tartrate (Lopressor) 25 mg EVERY 12 HOURS GT 10/19/19 21:00 01/17/20 20:59 10/24/19 21:34 Piperacillin Sod/ Tazobactam Sod 3.375 gm/Sodium Chloride 110 ml @ 27.5 mls/hr Q8H IVPB 10/23/19 12:00 10/30/19 11:59 10/25/19 04:14 Polyethylene Glycol (Miralax) 17 gm DAILYPRN PRN ORAL Constipation 10/21/19 09:45 11/20/19 09:44 Saccharomyces Boulardii (Florastor) 250 mg TWICE A DAY GT 10/19/19 18:00 01/17/20 17:59 10/24/19 17:29 Sitagliptin Phosphate (Januvia) 100 mg DAILY GT 10/20/19 09:00 11/19/19 08:59 10/24/19 08:58 Sucralfate (Carafate) 1 gm Q6HR GT 10/19/19 13:30 01/17/20 13:29 10/25/19 05:51 Tamsulosin HCl (Flomax) 0.4 mg DAILY ORAL 10/20/19 09:00 11/19/19 08:59 10/24/19 08:58 Jesica Alegria MD October 25, 2019 11:00"
--- NOTE | 2019-10-25 11:42 | Surgery Progress Note ---
Surgery Progress Note Subjective Additional Comments still with significant leukocytosis labs noted exam unchanged Objective Last 24 Hour Vital Signs Date Time Temp Pulse Resp B/P (MAP) Pulse Ox O2 Delivery O2 Flow Rate FiO2 10/25/19 08:00 97.5 88 19 150/72 (98) 96 10/25/19 05:51 132/65 10/25/19 05:51 132/65 10/25/19 04:00 97.5 86 20 132/65 (87) 96 10/25/19 01:05 97 T-Piece 8.0 30 10/25/19 00:00 107/59 10/25/19 00:00 97.5 61 18 107/59 (75) 96 10/24/19 21:36 122/67 10/24/19 21:34 72 122/67 10/24/19 21:00 T-piece 9.0 10/24/19 20:08 77 20 98 T-Piece 8.0 30 10/24/19 20:04 97 T-Piece 8.0 30 10/24/19 20:00 97.9 72 18 122/67 (85) 96 10/24/19 17:30 78 127/75 10/24/19 17:29 127/75 10/24/19 16:00 98.6 78 20 127/75 (92) 95 10/24/19 13:45 131/77 10/24/19 13:33 97 T-Piece 8.0 30 10/24/19 12:37 131/77 10/24/19 12:00 98.5 83 22 131/77 (95) 99 I&O Intake and Output 10/24/19 10/25/19 19:00 07:00 Intake Total 330 ml Output Total 1000 ml 900 ml Balance -670 ml -900 ml Tube Feeding 330 ml Output Urine Total 1000 ml 900 ml # Bowel Movements 1 1 Dressing: saturated Wound: other Drains: other Cardiovascular: RSR Respiratory: decreased breath sounds Abdomen: soft, present bowel sounds, non-distended Extremities: no cyanosis, other Laboratory Tests Test 10/25/19 09:20 10/25/19 10:40 White Blood Count 19.9 K/UL (4.8-10.8) H Red Blood Count 3.97 M/UL (4.70-6.10) L Hemoglobin 11.8 G/DL (14.2-18.0) L Hematocrit 34.3 % (42.0-52.0) L Mean Corpuscular Volume 86 FL (80-99) Mean Corpuscular Hemoglobin 29.6 PG (27.0-31.0) Mean Corpuscular Hemoglobin Concent 34.2 G/DL (32.0-36.0) Red Cell Distribution Width 13.1 % (11.6-14.8) Platelet Count 389 K/UL (150-450) Mean Platelet Volume 9.9 FL (6.5-10.1) Neutrophils (%) (Auto) % (45.0-75.0) Lymphocytes (%) (Auto) % (20.0-45.0) Monocytes (%) (Auto) % (1.0-10.0) Eosinophils (%) (Auto) % (0.0-3.0) Basophils (%) (Auto) % (0.0-2.0) Differential Total Cells Counted 100 Neutrophils % (Manual) 76 % (45-75) H Lymphocytes % (Manual) 10 % (20-45) L Monocytes % (Manual) 11 % (1-10) H Eosinophils % (Manual) 3 % (0-3) Basophils % (Manual) 0 % (0-2) Band Neutrophils 0 % (0-8) Platelet Estimate Adequate Platelet Morphology Normal Sodium Level 141 MMOL/L (136-145) Potassium Level 4.0 MMOL/L (3.5-5.1) Chloride Level 110 MMOL/L (98-107) H Carbon Dioxide Level 24 MMOL/L (21-32) Anion Gap 7 mmol/L (5-15) Blood Urea Nitrogen 9 mg/dL (7-18) Creatinine 1.1 MG/DL (0.55-1.30) Estimat Glomerular Filtration Rate > 60 mL/min (>60) Glucose Level 164 MG/DL (74-106) H Calcium Level 8.6 MG/DL (8.5-10.1) Total Bilirubin 0.3 MG/DL (0.2-1.0) Aspartate Amino Transf (AST/SGOT) 25 U/L (15-37) Alanine Aminotransferase (ALT/SGPT) 22 U/L (12-78) Alkaline Phosphatase 75 U/L (46-116) C-Reactive Protein, Quantitative 5.7 mg/dL (0.00-0.90) H Total Protein 6.4 G/DL (6.4-8.2) Albumin 2.1 G/DL (3.4-5.0) L Globulin 4.3 g/dL Albumin/Globulin Ratio 0.5 (1.0-2.7) L Erythrocyte Sedimentation Rate Pending Plan Problems: (1) Deep tissue injury Assessment & Plan: sacral DTI noted on admission prior historical scar noted from healed wound wash daily with NS apply foam dressings turn q2h off load pressure pillow under legs will follow with recs thank you (2) Krishnan catheter problem Assessment & Plan: resolved urology place new krishnan functional (3) Failure to thrive Assessment & Plan: nutritional optimization DAILY ESTIMATED NEEDS: Needs based on DTI, DM 78kg adj 22-27 kcals/kg 8398-8122 total kcals 1.25-1.5 g protein/kg 98-117 g total protein 25-30 mL/kg 2292-6979 total fluid mLs NUTRITION DIAGNOSIS: Swallowing difficulty R/T respiratory status as evidenced by pt vent dep via T-collar w/ PEG feedings (CURRENT TF: Glucerna 1.5@ 30ml/hr - HELD) ENTERAL NUTRITION RECOMMENDATIONS: Glucerna 1.5 @60ml x20 hrs to provide 1200ml, 1800 kcal, 99g pro. 911ml free H2O - As medically able, resume TF's. Advance as tolerated 10ml/hr q4-6 hrs to goal. - Flush per MD/ HOB over 30 degrees ADDITIONAL RECOMMENDATIONS: - Change bed scale to healy bed for accurate CBW - Monitor lytes daily on TF - When TF at goal is tolerated, rec KURTIS in 4oz H2O BID for wound care (4) Leukocytosis Assessment & Plan: uti abx given improved labs improved (5) Fecal impaction Assessment & Plan: Abundant inspissated stool distending the rectum. Proximally, there is gas throughout the colon. Suspected fecal impaction. No clear free air on exam that includes the dome of the right hemidiaphragm. Right femoral vascular catheter. Krishnan catheter. Lumbar dextrocurvature. Chronic height loss to the leftward L3 level. Suture material again noted. IMPRESSION: Suspected fecal impaction. will start bowel regimen and enema may need manual disimpaction will follow with recs thank you Findings: Gastrostomy tube noted. There is a right transfemoral central venous catheter. Krishnan catheter is noted. Surgical material noted in the pelvis. Bowel gas pattern is nonspecific but not overtly obstructive. Dense stool in the rectum. Decreased. Interstitial and airspace disease noted in the bilateral lower lungs. There are degenerative changes in the spine. Degenerative versus chronic post traumatic changes of the left femur. IMPRESSION: Nonspecific but not overtly obstructive bowel gas pattern. Interval decrease in dense stool in the rectum. Indwelling gastrostomy tube. Interstitial and airspace disease noted in the bilateral lower lungs. Additional findings as above. Raheem Kolb October 25, 2019 11:42
[2019-10-25 12:00] VITALS: BP 150/77
[2019-10-25 16:00] VITALS: BP 141/69
[2019-10-25 20:00] VITALS: BP 117/63
[2019-10-25] MEDS: Doxazosin 1mg Tab GT SCH (21:29)
[2019-10-26] VITALS (7 sets, daily range): BP systolic 111–161; BP diastolic 60–78
[2019-10-26] MEDS: Sucralfate 1gm tab GT SCH ×4 (00:23→18:34)
[2019-10-26] MEDS: Piperacillin/Tazobactam 3.375 GM in NS 110 ML IVPB SCH ×3 (04:20→20:00)
[2019-10-26] MEDS: HydrALAZINE 50mg tab GT SCH ×3 (05:51→21:49)
[2019-10-26] MEDS: NovoLOG Insulin Flexpen SUBQ SCH ×4 (05:52→21:00)
[2019-10-26] MEDS: Lactulose 20gm/30ml UDC ORAL SCH ×3 (09:00→17:24)
[2019-10-26] MEDS: Levemir Flexpen SUBQ SCH ×2 (09:00→18:34)
[2019-10-26] MEDS: Docusate 100mg/10ml Liq NG SCH (09:00)
--- NOTE | 2019-10-26 10:41 | Surgery Progress Note ---
Surgery Progress Note Subjective Additional Comments pending labs exam unchanged micro noted afebrile, HD stable Objective Last 24 Hour Vital Signs Date Time Temp Pulse Resp B/P (MAP) Pulse Ox O2 Delivery O2 Flow Rate FiO2 10/26/19 07:46 93 T-Piece 8.0 30 10/26/19 07:45 79 20 93 T-Piece 8.0 30 10/26/19 05:52 107/60 10/26/19 05:51 107/60 10/26/19 04:00 97.7 71 19 117/60 (79) 94 10/26/19 01:08 99 T-Piece 8.0 30 10/26/19 00:00 98.2 79 19 111/60 (77) 96 10/26/19 00:00 109/60 10/25/19 22:00 108/69 10/25/19 21:29 77 137/63 10/25/19 21:00 T-piece 9.0 10/25/19 20:02 81 20 99 T-Piece 8.0 30 10/25/19 20:02 98 T-Piece 8.0 30 10/25/19 20:00 98.2 74 19 117/63 (81) 94 10/25/19 18:00 141/69 10/25/19 18:00 91 141/69 10/25/19 16:00 97.9 91 19 141/69 (93) 99 10/25/19 13:11 150/77 10/25/19 12:00 150/77 10/25/19 12:00 98.0 90 20 150/77 (101) 95 I&O Intake and Output 10/25/19 10/26/19 19:00 07:00 Intake Total 930 ml 30 ml Output Total 600 ml 650 ml Balance 330 ml -620 ml Intake Free Water 600 ml Tube Feeding 330 ml 30 ml Output Urine Total 600 ml 650 ml # Bowel Movements 2 Plan Problems: (1) Deep tissue injury Assessment & Plan: sacral DTI noted on admission prior historical scar noted from healed wound wash daily with NS apply foam dressings turn q2h off load pressure pillow under legs will follow with recs thank you (2) Krishnan catheter problem Assessment & Plan: resolved urology place new krishnan functional (3) Failure to thrive Assessment & Plan: DAILY ESTIMATED NEEDS: Needs based on DTI, DM 78kg adj 22-27 kcals/kg 8450-4761 total kcals 1.25-1.5 g protein/kg 98-117 g total protein 25-30 mL/kg 3892-7368 total fluid mLs NUTRITION DIAGNOSIS: Swallowing difficulty R/T respiratory status as evidenced by pt vent dep via T-collar w/ PEG feedings CURRENT TF:Glucerna 1.5@ 30ml/hr x 24 hrs ENTERAL NUTRITION RECOMMENDATIONS: Glucerna 1.5 @ 50ml/hr x 24 hrs to provide 1200ml, 1800 kcal, 99g pro. 911ml free H2O - Increase goal rate to 50ml/hr x 24 hrs to meet 100% est kcal/prot needs - HOB over 30 degrees - H20 flush of 180ml q 4 hrs ADDITIONAL RECOMMENDATIONS: - Change bed scale to jose bed for accurate CBW - When TF at goal is tolerated, rec KURTIS in 4oz H2O BID for wound care, continue Vit C - Monitor lytes, replete as needed (4) Leukocytosis Assessment & Plan: uti abx given improved labs improved (5) Fecal impaction Assessment & Plan: Abundant inspissated stool distending the rectum. Proximally, there is gas throughout the colon. Suspected fecal impaction. No clear free air on exam that includes the dome of the right hemidiaphragm. Right femoral vascular catheter. Krishnan catheter. Lumbar dextrocurvature. Chronic height loss to the leftward L3 level. Suture material again noted. IMPRESSION: Suspected fecal impaction. will start bowel regimen and enema may need manual disimpaction will follow with recs thank you Findings: Gastrostomy tube noted. There is a right transfemoral central venous catheter. Krishnan catheter is noted. Surgical material noted in the pelvis. Bowel gas pattern is nonspecific but not overtly obstructive. Dense stool in the rectum. Decreased. Interstitial and airspace disease noted in the bilateral lower lungs. There are degenerative changes in the spine. Degenerative versus chronic post traumatic changes of the left femur. IMPRESSION: Nonspecific but not overtly obstructive bowel gas pattern. Interval decrease in dense stool in the rectum. Indwelling gastrostomy tube. Interstitial and airspace disease noted in the bilateral lower lungs. Additional findings as above. Raheem Kolb October 26, 2019 10:41
--- NOTE | 2019-10-26 10:44 | General Progress Note ---
Assessment/Plan Problem List: (1) UTI (urinary tract infection) ICD Codes: N39.0 - Urinary tract infection, site not specified SNOMED: 55480698 (2) Encephalopathy acute ICD Codes: G93.40 - Encephalopathy, unspecified SNOMED: 5758601 (3) Leukocytosis ICD Codes: D72.829 - Elevated white blood cell count, unspecified SNOMED: 823381742 (4) Sepsis ICD Codes: A41.9 - Sepsis, unspecified organism SNOMED: 07186591 (5) Acute urinary tract infection (6) Diabetes mellitus out of control ICD Codes: E11.9 - Diabetes mellitus out of control SNOMED: 433828337 (7) G tube feedings ICD Codes: Z93.1 - G tube feedings SNOMED: 272672298 (8) Septicemia (9) Fecal impaction ICD Codes: K56.41 - Fecal impaction SNOMED: 87916249 (10) Krishnan catheter problem ICD Codes: T83.9XXA - Unsp complication of genitourinary prosth dev/grft, init SNOMED: 789493385 Status: stable, progressing Assessment/Plan: cont iv abx check renal US- r/o perinephric abscess. Per radiology department cannot be done until COVID-19 is back krishnan care monitor bs bowel regime feeds follow up labs vent prn resp rx BP rx tried to leave message with son but telephone full. Subjective ROS Limited/Unobtainable: Yes Constitutional: Reports: malaise, weakness HEENT: Reports: no symptoms Cardiovascular: Reports: no symptoms Respiratory: Reports: no symptoms Gastrointestinal/Abdominal: Reports: difficulty swallowing Genitourinary: Reports: no symptoms Neurologic/Psychiatric: Reports: pre-existing deficit Endocrine: Reports: no symptoms Hematologic/Lymphatic: Reports: anemia Allergies: Coded Allergies: No Known Allergies (Unverified , 02/11/13) All Systems: reviewed and negative except above Subjective no events. Id and pulm appreciated. wbc higher. having BMs. on iv abx. on trach collar. mild congestion. occasional suctioning required. nonverbal at baseline. Blood cultures and urine cultures noted. IV antibiotics changed to Zosyn by infectious disease integration consultant. covid neg x 1. awaiting 2nd covid. labs pending Objective Last 24 Hour Vital Signs Date Time Temp Pulse Resp B/P (MAP) Pulse Ox O2 Delivery O2 Flow Rate FiO2 10/26/19 07:46 93 T-Piece 8.0 30 10/26/19 07:45 79 20 93 T-Piece 8.0 30 10/26/19 05:52 107/60 10/26/19 05:51 107/60 10/26/19 04:00 97.7 71 19 117/60 (79) 94 10/26/19 01:08 99 T-Piece 8.0 30 10/26/19 00:00 98.2 79 19 111/60 (77) 96 10/26/19 00:00 109/60 10/25/19 22:00 108/69 10/25/19 21:29 77 137/63 10/25/19 21:00 T-piece 9.0 10/25/19 20:02 81 20 99 T-Piece 8.0 30 10/25/19 20:02 98 T-Piece 8.0 30 10/25/19 20:00 98.2 74 19 117/63 (81) 94 10/25/19 18:00 141/69 10/25/19 18:00 91 141/69 10/25/19 16:00 97.9 91 19 141/69 (93) 99 10/25/19 13:11 150/77 10/25/19 12:00 150/77 10/25/19 12:00 98.0 90 20 150/77 (101) 95 Intake and Output 10/25/19 10/26/19 19:00 07:00 Intake Total 930 ml 30 ml Output Total 600 ml 650 ml Balance 330 ml -620 ml Intake Free Water 600 ml Tube Feeding 330 ml 30 ml Output Urine Total 600 ml 650 ml # Bowel Movements 2 Height (Feet): 5 Height (Inches): 10.00 Weight (Pounds): 189 Objective General Appearance: WD/WN, lethargic, confused EENT: normal ENT inspection Neck: non-tender, normal alignment, supple Cardiovascular: normal peripheral pulses, normal rate, regular rhythm Respiratory/Chest: lungs clear, normal breath sounds, no respiratory distress, no accessory muscle use Abdomen: normal bowel sounds, non tender, soft, no organomegaly Edema: no edema noted Arm (L), no edema noted Arm (R), no edema noted Leg (L), no edema noted Leg (R), no edema noted Pedal (L), no edema noted Pedal (R), no edema noted Generalized Neurologic: disoriented, unresponsive, aphasia Skin: normal pigmentation Jeremiah Perkins MD October 26, 2019 10:44
[2019-10-26] MEDS: Tums 500mg GT SCH (10:57)
[2019-10-26] MEDS: Ascorbic Acid 500mg tab GT SCH (10:58)
[2019-10-26] MEDS: Tamsulosin 0.4mg cap ORAL SCH (10:59)
[2019-10-26] MEDS: Heparin 5000 units/ml inj SUBQ SCH ×2 (11:01→21:00)
[2019-10-26] MEDS ORDERED: Sterile Water Irrig 1000ml IRRIG ONE (15:08)
[2019-10-26] MEDS: Doxazosin 1mg Tab GT SCH (21:00)
--- NOTE | 2019-10-26 23:24 | Pulmonology Progress Note ---
Assessment/Plan Assessment/Plan Progress Note date and time: 10/24/19 0846 Assessment/Plan Assessment/Plan IMPRESSION Respiratory failure trach possible UTI possible sepsis urinary retention functional Quad CVA sepsis BCX+ PLAN respiratory care as is trach care and off vent as able oxygen IV antibiotics noted and cultures and sens reviewed ID reviewed urology followup maintain SNF meds as is aspiration precautions dc back to SNF pending ID clearance; wbc worse today monitor UO impression, plan, and exam edited and reviewed in detail care discussed with RN Subjective ROS Limited/Unobtainable: Yes Allergies: Coded Allergies: No Known Allergies (Unverified , 02/11/13) All Systems: reviewed and negative except above Subjective bcx+ UCx + wbc worse antibiotics noted respiratory noted on trach collar Objective Last 24 Hour Vital Signs Date Time Temp Pulse Resp B/P (MAP) Pulse Ox O2 Delivery O2 Flow Rate FiO2 10/24/19 05:35 145/68 10/24/19 05:35 145/68 10/24/19 04:00 98.4 74 24 145/68 (93) 97 10/24/19 00:51 98 T-Piece 8.0 30 10/24/19 00:00 117/61 10/24/19 00:00 97.5 59 24 117/61 (79) 99 10/23/19 22:49 70 140/71 10/23/19 22:48 140/71 10/23/19 21:00 T-piece 9.0 10/23/19 20:00 98.2 70 24 140/71 (94) 99 10/23/19 19:42 97 T-Piece 8.0 30 10/23/19 19:41 75 20 97 T-Piece 8.0 30 10/23/19 18:24 141/74 10/23/19 18:24 75 141/74 10/23/19 16:00 98.1 75 20 141/74 (96) 100 10/23/19 14:07 142/80 10/23/19 13:57 96 T-Piece 8.0 30 10/23/19 12:00 97.3 70 20 142/80 (100) 97 10/23/19 11:54 145/75 10/23/19 09:48 97 T-Piece 8.0 30 10/23/19 09:08 72 20 97 T-Piece 8.0 30 10/23/19 09:00 T-piece 9.0 10/23/19 08:47 77 145/75 10/23/19 08:47 77 145/75 Intake and Output 10/23/19 10/24/19 19:00 07:00 Intake Total 185.0 ml 485.0 ml Output Total 2200 ml Balance -2015.0 ml 485.0 ml Intake IV Total 185.0 ml 485.0 ml Output Urine Total 2200 ml # Voids 1 # Bowel Movements 4 1 Objective WDWN NAD reduced breath sounds bilaterally without rhonchi or wheeze trach [id number] without MRG NABS nontender no HSM; GT no CCE poor ROM and LOC eulogio reviewed and edited HEENT: status post trach Microbiology Date/Time Source Procedure Growth Status 10/21/19 14:20 Nasopharynx Coronavirus COVID-19 PCR ([facility]) - Final Complete Laboratory Tests 10/24/19 07:50: White Blood Count 21.3H, Red Blood Count 3.76L, Hemoglobin 11.1L, Hematocrit 32.4L, Mean Corpuscular Volume 86, Mean Corpuscular Hemoglobin 29.5, Mean Corpuscular Hemoglobin Concent 34.3, Red Cell Distribution Width 12.6, Platelet Count 411, Mean Platelet Volume 10.0, Neutrophils (%) (Auto) , Lymphocytes (%) ( Auto) , Monocytes (%) (Auto) , Eosinophils (%) (Auto) , Basophils (%) (Auto) , Neutrophils % (Manual) [Pending], Lymphocytes % (Manual) [Pending], Platelet Estimate [Pending], Platelet Morphology [Pending], Erythrocyte Sedimentation Rate [Pending], Sodium Level 143, Potassium Level 3.3L, Chloride Level 110H, Carbon Dioxide Level 26, Anion Gap 7, Blood Urea Nitrogen 5L, Creatinine 1.1, Estimat Glomerular Filtration Rate > 60, Glucose Level 100, Calcium Level 8.3L, Total Bilirubin 0.4, Aspartate Amino Transf (AST/SGOT) 24, Alanine Aminotransferase (ALT/SGPT) 31, Alkaline Phosphatase 67, C-Reactive Protein, Quantitative 4.8H, Total Protein 6.1L, Albumin 2.0L, Globulin 4.1, Albumin/ Globulin Ratio 0.5L Current Medications Medications (Trade) Dose Ordered Sig/Magda Route PRN Reason Start Time Stop Time Status Last Admin Dose Admin Acetaminophen (Tylenol) 650 mg Q4H PRN GT For Pain/FEVER 10/19/19 12:00 11/18/19 11:59 10/22/19 05:18 Albuterol Sulfate (Proventil) 2.5 mg Q6H PRN HHN Shortness of Breath 10/19/19 12:00 10/24/19 11:59 Amlodipine Besylate (Norvasc) 5 mg BID GT 10/19/19 18:00 11/18/19 17:59 10/23/19 18:24 Ascorbic Acid (Vitamin C) 500 mg DAILY GT 10/19/19 13:30 11/18/19 13:29 10/23/19 08:47 Bisacodyl (Dulcolax) 10 mg DAILY RECTAL 10/19/19 13:30 01/17/20 13:29 10/23/19 08:47 Bisacodyl (Dulcolax) 10 mg DAILYPRN PRN RECTAL Constipation 10/21/19 09:45 01/19/20 09:44 Calcium Carbonate (Tums) 500 mg DAILY GT 10/20/19 09:00 01/18/20 08:59 10/23/19 08:47 Clonidine HCl (Catapres Tab) 0.1 mg Q6HR GT 10/19/19 13:30 01/17/20 13:29 10/24/19 05:35 Dextrose (Dextrose 50%) 25 ml Q30M PRN IV Hypoglycemia 10/19/19 12:00 01/17/20 11:59 Dextrose (Dextrose 50%) 50 ml Q30M PRN IV Hypoglycemia 10/19/19 12:00 01/17/20 11:59 Dextrose/ Electrolytes 1,000 ml @ 75 mls/hr [id number] IV 10/21/19 15:00 11/20/19 14:59 10/23/19 21:13 Docusate Sodium (Colace) 100 mg DAILY ORAL 10/20/19 09:00 11/19/19 08:59 10/23/19 08:47 Doxazosin Mesylate (Cardura) 2 mg BEDTIME GT 10/19/19 21:00 11/18/19 20:59 10/23/19 21:14 Finasteride (Proscar) 5 mg DAILY ORAL 10/20/19 09:00 01/18/20 08:59 10/23/19 08:47 Heparin Sodium (Porcine) (Heparin 5000 units/ml) 5,000 units EVERY 12 HOURS SUBQ 10/19/19 21:00 12/03/19 20:59 10/23/19 21:14 Hydralazine HCl (Apresoline) 50 mg EVERY 8 HOURS GT 10/19/19 14:00 01/17/20 13:59 10/24/19 05:35 Insulin Aspart (NovoLOG) BEFORE MEALS AND HS SUBQ 10/19/19 16:30 01/17/20 16:29 10/22/19 16:35 Insulin Detemir (Levemir) 35 units BID SUBQ 10/19/19 18:00 01/17/20 17:59 10/23/19 18:25 Lactulose (Cephulac) 20 gm THREE TIMES A DAY ORAL 10/21/19 09:45 11/20/19 09:44 10/23/19 18:24 Magnesium Hydroxide (Mom) 30 ml DAILY PRN GT Constipation 10/19/19 12:00 11/18/19 11:59 Metoprolol Tartrate (Lopressor) 25 mg EVERY 12 HOURS GT 10/19/19 21:00 01/17/20 20:59 10/23/19 22:49 Piperacillin Sod/ Tazobactam Sod 3.375 gm/Sodium Chloride 110 ml @ 27.5 mls/hr Q8H IVPB 10/23/19 12:00 10/30/19 11:59 10/24/19 04:39 Polyethylene Glycol (Miralax) 17 gm DAILYPRN PRN ORAL Constipation 10/21/19 09:45 11/20/19 09:44 Saccharomyces Boulardii (Florastor) 250 mg TWICE A DAY GT 10/19/19 18:00 01/17/20 17:59 10/23/19 18:24 Sitagliptin Phosphate (Januvia) 100 mg DAILY GT 10/20/19 09:00 11/19/19 08:59 10/23/19 08:47 Sucralfate (Carafate) 1 gm Q6HR GT 10/19/19 13:30 01/17/20 13:29 10/24/19 05:35 Tamsulosin HCl (Flomax) 0.4 mg DAILY ORAL 10/20/19 09:00 11/19/19 08:59 10/23/19 08:47 Subjective ROS Limited/Unobtainable: No Constitutional: Denies: fever Allergies: Coded Allergies: No Known Allergies (Unverified , 02/11/13) All Systems: reviewed and negative except above Objective Last 24 Hour Vital Signs Date Time Temp Pulse Resp B/P (MAP) Pulse Ox O2 Delivery O2 Flow Rate FiO2 10/26/19 21:49 146/76 10/26/19 21:00 T-piece 9.0 10/26/19 21:00 100 146/76 10/26/19 20:00 97.9 95 22 146/76 (99) 94 10/26/19 18:34 133/62 10/26/19 18:34 76 133/62 10/26/19 16:00 98.4 76 19 133/62 (85) 94 10/26/19 13:57 161/78 10/26/19 13:57 161/78 10/26/19 13:10 95 T-Piece 8.0 30 10/26/19 12:00 98.0 78 19 161/78 (105) 95 10/26/19 11:00 73 122/65 10/26/19 10:57 73 122/65 10/26/19 09:00 T-piece 9.0 10/26/19 08:00 98.0 73 20 122/65 (84) 96 10/26/19 07:46 93 T-Piece 8.0 30 10/26/19 07:45 79 20 93 T-Piece 8.0 30 10/26/19 05:52 107/60 10/26/19 05:51 107/60 10/26/19 04:00 97.7 71 19 117/60 (79) 94 10/26/19 01:08 99 T-Piece 8.0 30 10/26/19 00:00 98.2 79 19 111/60 (77) 96 10/26/19 00:00 109/60 Intake and Output 10/25/19 10/26/19 19:00 07:00 Intake Total 930 ml 30 ml Output Total 600 ml 650 ml Balance 330 ml -620 ml Intake Free Water 600 ml Tube Feeding 330 ml 30 ml Output Urine Total 600 ml 650 ml # Bowel Movements 2 HEENT: status post trach Abdomen: other - GT feeding Genitourinary: other - Peters catheter Neurologic/Psychiatric: aphasia Current Medications Medications (Trade) Dose Ordered Sig/Magda Route PRN Reason Start Time Stop Time Status Last Admin Dose Admin Acetaminophen (Tylenol) 650 mg Q4H PRN GT For Pain/FEVER 10/19/19 12:00 11/18/19 11:59 10/22/19 05:18 Amlodipine Besylate (Norvasc) 5 mg BID GT 10/19/19 18:00 11/18/19 17:59 10/26/19 18:34 Ascorbic Acid (Vitamin C) 500 mg DAILY GT 10/19/19 13:30 11/18/19 13:29 10/26/19 10:58 Bisacodyl (Dulcolax) 10 mg DAILY RECTAL 10/19/19 13:30 01/17/20 13:29 10/26/19 11:00 Bisacodyl (Dulcolax) 10 mg DAILYPRN PRN RECTAL Constipation 10/21/19 09:45 01/19/20 09:44 Calcium Carbonate (Tums) 500 mg DAILY GT 10/20/19 09:00 01/18/20 08:59 10/26/19 10:57 Clonidine HCl (Catapres Tab) 0.1 mg Q6HR GT 10/19/19 13:30 01/17/20 13:29 10/26/19 13:57 Dextrose (Dextrose 50%) 25 ml Q30M PRN IV Hypoglycemia 10/19/19 12:00 01/17/20 11:59 Dextrose (Dextrose 50%) 50 ml Q30M PRN IV Hypoglycemia 10/19/19 12:00 01/17/20 11:59 Docusate Sodium (Colace) 100 mg DAILY NG 10/26/19 09:00 11/25/19 08:59 Doxazosin Mesylate (Cardura) 2 mg BEDTIME GT 10/19/19 21:00 11/18/19 20:59 10/26/19 21:00 Finasteride (Proscar) 5 mg DAILY ORAL 10/20/19 09:00 01/18/20 08:59 10/26/19 10:59 Heparin Sodium (Porcine) (Heparin 5000 units/ml) 5,000 units EVERY 12 HOURS SUBQ 10/19/19 21:00 12/03/19 20:59 10/26/19 21:00 Hydralazine HCl (Apresoline) 50 mg EVERY 8 HOURS GT 10/19/19 14:00 01/17/20 13:59 10/26/19 21:49 Insulin Aspart (NovoLOG) BEFORE MEALS AND HS SUBQ 10/19/19 16:30 01/17/20 16:29 10/26/19 21:00 Insulin Detemir (Levemir) 35 units BID SUBQ 10/19/19 18:00 01/17/20 17:59 10/26/19 18:34 Lactulose (Cephulac) 20 gm THREE TIMES A DAY ORAL 10/21/19 09:45 11/20/19 09:44 10/25/19 13:11 Magnesium Hydroxide (Mom) 30 ml DAILY PRN GT Constipation 10/19/19 12:00 11/18/19 11:59 Metoprolol Tartrate (Lopressor) 25 mg EVERY 12 HOURS GT 10/19/19 21:00 01/17/20 20:59 10/26/19 21:00 Piperacillin Sod/ Tazobactam Sod 3.375 gm/Sodium Chloride 110 ml @ 27.5 mls/hr Q8H IVPB 10/23/19 12:00 10/28/19 23:59 10/26/19 20:00 Polyethylene Glycol (Miralax) 17 gm DAILYPRN PRN ORAL Constipation 10/21/19 09:45 11/20/19 09:44 Saccharomyces Boulardii (Florastor) 250 mg TWICE A DAY GT 10/19/19 18:00 01/17/20 17:59 10/26/19 18:34 Sitagliptin Phosphate (Januvia) 100 mg DAILY GT 10/20/19 09:00 11/19/19 08:59 10/26/19 10:59 Sucralfate (Carafate) 1 gm Q6HR GT 10/19/19 13:30 01/17/20 13:29 10/26/19 18:34 Tamsulosin HCl (Flomax) 0.4 mg DAILY ORAL 10/20/19 09:00 11/19/19 08:59 10/26/19 10:59 Brady Mccurdy MD October 26, 2019 23:24
[2019-10-27] VITALS: BP 117/59
[2019-10-27 04:00] VITALS: BP 119/60
[2019-10-27] MEDS: Piperacillin/Tazobactam 3.375 GM in NS 110 ML IVPB SCH ×3 (05:00→20:55)
[2019-10-27] MEDS: HydrALAZINE 50mg tab GT SCH ×3 (05:26→21:56)
[2019-10-27 05:36] LABS: BASOPHILS % (AUTO) 1.2 % (0.0-2.0); EOSINOPHILS % (AUTO) 2.5 % (0.0-3.0); HEMATOCRIT 32.5 % (42.0-52.0); HEMOGLOBIN 11.2 G/DL (14.2-18.0); LYMPHOCYTES % (AUTO) 11.4 % (20.0-45.0); MEAN CORPUSCULAR VOLUME 86 FL (80-99); MONOCYTES % (AUTO) 6.8 % (1.0-10.0); NEUTROPHILS % (AUTO) 78.1 % (45.0-75.0); PLATELET COUNT 454 K/UL (150-450); RED BLOOD COUNT 3.76 M/UL (4.70-6.10); RED CELL DISTRIBUTION WIDTH 12.9 % (11.6-14.8); WHITE BLOOD COUNT 17.5 K/UL (4.8-10.8)
[2019-10-27 06:28] LABS: ALANINE AMINOTRANSFERASE 42 U/L (12-78); ALBUMIN/GLOBULIN RATIO 0.4 (1.0-2.7); ALKALINE PHOSPHATASE 77 U/L (46-116); ANION GAP 9 mmol/L (5-15); ASPARTATE AMINO TRANSFERASE 35 U/L (15-37); BILIRUBIN,TOTAL 0.3 MG/DL (0.2-1.0); BLOOD UREA NITROGEN 12 mg/dL (7-18); CALCIUM 8.4 MG/DL (8.5-10.1); CARBON DIOXIDE 26 MMOL/L (21-32); CHLORIDE 111 MMOL/L (98-107); CREATININE 1.2 MG/DL (0.55-1.30); POTASSIUM 3.4 MMOL/L (3.5-5.1); SODIUM 146 MMOL/L (136-145)
[2019-10-27] MEDS: Sucralfate 1gm tab GT SCH ×5 (06:28→23:36)
[2019-10-27] MEDS: NovoLOG Insulin Flexpen SUBQ SCH ×4 (06:28→21:55)
[2019-10-27 08:00] VITALS: BP 125/57
--- NOTE | 2019-10-27 08:40 | General Progress Note ---
Assessment/Plan Problem List: (1) UTI (urinary tract infection) ICD Codes: N39.0 - Urinary tract infection, site not specified SNOMED: 59317997 (2) Encephalopathy acute ICD Codes: G93.40 - Encephalopathy, unspecified SNOMED: 7940855 (3) Leukocytosis ICD Codes: D72.829 - Elevated white blood cell count, unspecified SNOMED: 467865847 (4) Sepsis ICD Codes: A41.9 - Sepsis, unspecified organism SNOMED: 63092653 (5) Acute urinary tract infection (6) Diabetes mellitus out of control ICD Codes: E11.9 - Diabetes mellitus out of control SNOMED: 178122635 (7) G tube feedings ICD Codes: Z93.1 - G tube feedings SNOMED: 499610251 (8) Septicemia (9) Fecal impaction ICD Codes: K56.41 - Fecal impaction SNOMED: 07268200 (10) Krishnan catheter problem ICD Codes: T83.9XXA - Unsp complication of genitourinary prosth dev/grft, init SNOMED: 567867471 Status: stable, progressing Assessment/Plan: cont iv abx krishnan care monitor bs bowel regime feeds follow up labs vent prn resp rx/t bar BP rx tried to leave message with son but telephone full. Subjective ROS Limited/Unobtainable: Yes Constitutional: Reports: malaise, weakness HEENT: Reports: no symptoms Cardiovascular: Reports: no symptoms Respiratory: Reports: cough, shortness of breath, sputum Gastrointestinal/Abdominal: Reports: difficulty swallowing Genitourinary: Reports: no symptoms Neurologic/Psychiatric: Reports: pre-existing deficit Endocrine: Reports: no symptoms Hematologic/Lymphatic: Reports: anemia Allergies: Coded Allergies: No Known Allergies (Unverified , 02/11/13) All Systems: reviewed and negative except above Subjective no events. Id and pulm appreciated. having BMs. tolerating feeds. on iv abx. on trach collar. mild congestion. occasional suctioning required. nonverbal at baseline. Blood cultures and urine cultures noted. IV antibiotics changed to Zosyn by infectious disease b2b sales consultant. covid neg x 1. awaiting 2nd covid. labs pending Objective Last 24 Hour Vital Signs Date Time Temp Pulse Resp B/P (MAP) Pulse Ox O2 Delivery O2 Flow Rate FiO2 10/27/19 07:39 95 T-Piece 8.0 30 10/27/19 07:38 95 20 95 T-Piece 8.0 30 10/27/19 05:27 119/60 10/27/19 05:26 119/60 10/27/19 04:00 98.1 81 18 119/60 (79) 95 10/27/19 00:28 94 T-Piece 8.0 30 10/27/19 00:00 98.2 82 20 117/59 (78) 93 10/27/19 00:00 117/59 10/26/19 21:49 146/76 10/26/19 21:00 T-piece 9.0 10/26/19 21:00 100 146/76 10/26/19 20:00 97.9 95 22 146/76 (99) 94 10/26/19 20:00 81 20 93 T-Piece 8.0 30 10/26/19 20:00 93 T-Piece 8.0 30 10/26/19 18:34 133/62 10/26/19 18:34 76 133/62 10/26/19 16:00 98.4 76 19 133/62 (85) 94 10/26/19 13:57 161/78 10/26/19 13:57 161/78 10/26/19 13:10 95 T-Piece 8.0 30 10/26/19 12:00 98.0 78 19 161/78 (105) 95 10/26/19 11:00 73 122/65 10/26/19 10:57 73 122/65 10/26/19 09:00 T-piece 9.0 Intake and Output 10/26/19 10/27/19 19:00 07:00 Intake Total 30 ml 467.5 ml Output Total 1400 ml 600 ml Balance -1370 ml -132.5 ml IV Total 137.5 ml Tube Feeding 30 ml 330 ml Output Urine Total 1400 ml 600 ml # Bowel Movements 1 Laboratory Tests 10/27/19 05:00: White Blood Count 17.5H, Red Blood Count 3.76L, Hemoglobin 11.2L, Hematocrit 32.5L, Mean Corpuscular Volume 86, Mean Corpuscular Hemoglobin 29.7, Mean Corpuscular Hemoglobin Concent 34.4, Red Cell Distribution Width 12.9, Platelet Count 454H, Mean Platelet Volume 9.6, Neutrophils (%) (Auto) 78.1H, Lymphocytes (%) (Auto) 11.4L, Monocytes (%) (Auto) 6.8, Eosinophils (%) (Auto) 2.5, Basophils (%) (Auto) 1.2, Sodium Level 146H, Potassium Level 3.4L, Chloride Level 111H, Carbon Dioxide Level 26, Anion Gap 9, Blood Urea Nitrogen 12, Creatinine 1.2, Estimat Glomerular Filtration Rate > 60, Glucose Level 163H, Calcium Level 8.4L, Total Bilirubin 0.3, Aspartate Amino Transf (AST/SGOT) 35, Alanine Aminotransferase (ALT/SGPT) 42, Alkaline Phosphatase 77, Total Protein 6.6, Albumin 2.0L, Globulin 4.6, Albumin/Globulin Ratio 0.4L Height (Feet): 5 Height (Inches): 10.00 Weight (Pounds): 189 Objective General Appearance: WD/WN, lethargic, confused EENT: normal ENT inspection Neck: non-tender, normal alignment, supple Cardiovascular: normal peripheral pulses, normal rate, regular rhythm Respiratory/Chest: lungs clear, normal breath sounds, no respiratory distress, no accessory muscle use Abdomen: normal bowel sounds, non tender, soft, no organomegaly Edema: no edema noted Arm (L), no edema noted Arm (R), no edema noted Leg (L), no edema noted Leg (R), no edema noted Pedal (L), no edema noted Pedal (R), no edema noted Generalized Neurologic: disoriented, unresponsive, aphasia Skin: normal pigmentation Jeremiah Perkins MD October 27, 2019 08:40
[2019-10-27] MEDS: Lactulose 20gm/30ml UDC ORAL SCH ×3 (09:00→18:00)
[2019-10-27] MEDS: Docusate 100mg/10ml Liq NG SCH (09:00)
[2019-10-27] MEDS: Tums 500mg GT SCH (10:00)
[2019-10-27] MEDS: Levemir Flexpen SUBQ SCH ×2 (10:00→18:00)
[2019-10-27] MEDS: Tamsulosin 0.4mg cap ORAL SCH (10:00)
[2019-10-27] MEDS: Heparin 5000 units/ml inj SUBQ SCH ×2 (10:00→21:00)
[2019-10-27] MEDS: Ascorbic Acid 500mg tab GT SCH (10:00)
[2019-10-27 12:00] VITALS: BP 121/51
--- NOTE | 2019-10-27 14:08 | Infectious Diseases Prog Note ---
Assessment/Plan Assessment/Plan 1. Klebsiella & Enterococcus sepsis 2. E.coli & Providencia UTI 3. COVID19 X 1: negative 4. diabetes mellitus 5. hypertension 6. CVA P 1. Continue Zosyn X 1 day 2. will follow up cultures 3. Will f/u COVID19 test Subjective ROS Limited/Unobtainable: Yes Allergies: Coded Allergies: No Known Allergies (Unverified , 02/11/13) Objective Vital Signs Last 24 Hour Vital Signs Date Time Temp Pulse Resp B/P (MAP) Pulse Ox O2 Delivery O2 Flow Rate FiO2 10/27/19 12:58 93 T-Piece 8.0 30 10/27/19 12:00 97.8 79 18 121/51 (74) 96 10/27/19 12:00 121/51 10/27/19 10:00 77 125/57 10/27/19 10:00 77 125/57 10/27/19 09:00 T-piece 9.0 10/27/19 08:00 98.5 77 18 125/57 (79) 95 10/27/19 07:39 95 T-Piece 8.0 30 10/27/19 07:38 95 20 95 T-Piece 8.0 30 10/27/19 05:27 119/60 10/27/19 05:26 119/60 10/27/19 04:00 98.1 81 18 119/60 (79) 95 10/27/19 00:28 94 T-Piece 8.0 30 10/27/19 00:00 98.2 82 20 117/59 (78) 93 10/27/19 00:00 117/59 10/26/19 21:49 146/76 10/26/19 21:00 T-piece 9.0 10/26/19 21:00 100 146/76 10/26/19 20:00 97.9 95 22 146/76 (99) 94 10/26/19 20:00 81 20 93 T-Piece 8.0 30 10/26/19 20:00 93 T-Piece 8.0 30 10/26/19 18:34 133/62 10/26/19 18:34 76 133/62 10/26/19 16:00 98.4 76 19 133/62 (85) 94 Height (Feet): 5 Height (Inches): 10.00 Weight (Pounds): 189 General Appearance: no acute distress HEENT: status post trach Respiratory/Chest: other - on Tbar Cardiovascular: normal rate Abdomen: soft, non tender, other - GT feeding Extremities: no edema Neurologic/Psychiatric: aphasia Laboratory Tests Test 10/27/19 05:00 White Blood Count 17.5 K/UL (4.8-10.8) H Red Blood Count 3.76 M/UL (4.70-6.10) L Hemoglobin 11.2 G/DL (14.2-18.0) L Hematocrit 32.5 % (42.0-52.0) L Mean Corpuscular Volume 86 FL (80-99) Mean Corpuscular Hemoglobin 29.7 PG (27.0-31.0) Mean Corpuscular Hemoglobin Concent 34.4 G/DL (32.0-36.0) Red Cell Distribution Width 12.9 % (11.6-14.8) Platelet Count 454 K/UL (150-450) H Mean Platelet Volume 9.6 FL (6.5-10.1) Neutrophils (%) (Auto) 78.1 % (45.0-75.0) H Lymphocytes (%) (Auto) 11.4 % (20.0-45.0) L Monocytes (%) (Auto) 6.8 % (1.0-10.0) Eosinophils (%) (Auto) 2.5 % (0.0-3.0) Basophils (%) (Auto) 1.2 % (0.0-2.0) Sodium Level 146 MMOL/L (136-145) H Potassium Level 3.4 MMOL/L (3.5-5.1) L Chloride Level 111 MMOL/L (98-107) H Carbon Dioxide Level 26 MMOL/L (21-32) Anion Gap 9 mmol/L (5-15) Blood Urea Nitrogen 12 mg/dL (7-18) Creatinine 1.2 MG/DL (0.55-1.30) Estimat Glomerular Filtration Rate > 60 mL/min (>60) Glucose Level 163 MG/DL (74-106) H Calcium Level 8.4 MG/DL (8.5-10.1) L Total Bilirubin 0.3 MG/DL (0.2-1.0) Aspartate Amino Transf (AST/SGOT) 35 U/L (15-37) Alanine Aminotransferase (ALT/SGPT) 42 U/L (12-78) Alkaline Phosphatase 77 U/L (46-116) Total Protein 6.6 G/DL (6.4-8.2) Albumin 2.0 G/DL (3.4-5.0) L Globulin 4.6 g/dL Albumin/Globulin Ratio 0.4 (1.0-2.7) L Current Medications Medications (Trade) Dose Ordered Sig/Magda Route PRN Reason Start Time Stop Time Status Last Admin Dose Admin Acetaminophen (Tylenol) 650 mg Q4H PRN GT For Pain/FEVER 10/19/19 12:00 11/18/19 11:59 10/22/19 05:18 Amlodipine Besylate (Norvasc) 5 mg BID GT 10/19/19 18:00 11/18/19 17:59 10/27/19 10:00 Ascorbic Acid (Vitamin C) 500 mg DAILY GT 10/19/19 13:30 11/18/19 13:29 10/27/19 10:00 Bisacodyl (Dulcolax) 10 mg DAILY RECTAL 10/19/19 13:30 01/17/20 13:29 10/26/19 11:00 Bisacodyl (Dulcolax) 10 mg DAILYPRN PRN RECTAL Constipation 10/21/19 09:45 01/19/20 09:44 Calcium Carbonate (Tums) 500 mg DAILY GT 10/20/19 09:00 01/18/20 08:59 10/27/19 10:00 Clonidine HCl (Catapres Tab) 0.1 mg Q6HR GT 10/19/19 13:30 01/17/20 13:29 10/26/19 13:57 Dextrose (Dextrose 50%) 25 ml Q30M PRN IV Hypoglycemia 10/19/19 12:00 01/17/20 11:59 Dextrose (Dextrose 50%) 50 ml Q30M PRN IV Hypoglycemia 10/19/19 12:00 01/17/20 11:59 Docusate Sodium (Colace) 100 mg DAILY NG 10/26/19 09:00 11/25/19 08:59 Doxazosin Mesylate (Cardura) 2 mg BEDTIME GT 10/19/19 21:00 11/18/19 20:59 10/26/19 21:00 Finasteride (Proscar) 5 mg DAILY ORAL 10/20/19 09:00 01/18/20 08:59 10/27/19 10:00 Heparin Sodium (Porcine) (Heparin 5000 units/ml) 5,000 units EVERY 12 HOURS SUBQ 10/19/19 21:00 12/03/19 20:59 10/27/19 10:00 Hydralazine HCl (Apresoline) 50 mg EVERY 8 HOURS GT 10/19/19 14:00 01/17/20 13:59 10/26/19 21:49 Insulin Aspart (NovoLOG) BEFORE MEALS AND HS SUBQ 10/19/19 16:30 01/17/20 16:29 10/27/19 06:28 Insulin Detemir (Levemir) 35 units BID SUBQ 10/19/19 18:00 01/17/20 17:59 10/27/19 10:00 Lactulose (Cephulac) 20 gm THREE TIMES A DAY ORAL 10/21/19 09:45 11/20/19 09:44 10/25/19 13:11 Magnesium Hydroxide (Mom) 30 ml DAILY PRN GT Constipation 10/19/19 12:00 11/18/19 11:59 Metoprolol Tartrate (Lopressor) 25 mg EVERY 12 HOURS GT 10/19/19 21:00 01/17/20 20:59 10/27/19 10:00 Piperacillin Sod/ Tazobactam Sod 3.375 gm/Sodium Chloride 110 ml @ 27.5 mls/hr Q8H IVPB 10/23/19 12:00 10/28/19 23:59 10/27/19 12:21 Polyethylene Glycol (Miralax) 17 gm DAILYPRN PRN ORAL Constipation 10/21/19 09:45 11/20/19 09:44 Saccharomyces Boulardii (Florastor) 250 mg TWICE A DAY GT 10/19/19 18:00 01/17/20 17:59 10/27/19 10:00 Sitagliptin Phosphate (Januvia) 100 mg DAILY GT 10/20/19 09:00 11/19/19 08:59 10/27/19 10:00 Sucralfate (Carafate) 1 gm Q6HR GT 10/19/19 13:30 01/17/20 13:29 10/27/19 12:20 Tamsulosin HCl (Flomax) 0.4 mg DAILY ORAL 10/20/19 09:00 11/19/19 08:59 10/27/19 10:00 Kuldip Rosado MD October 27, 2019 14:08
[2019-10-27 16:00] VITALS: BP 126/59
--- NOTE | 2019-10-27 18:09 | Pulmonology Progress Note ---
Assessment/Plan Assessment/Plan Pulmonary Progress Note Assessment/Plan IMPRESSION Respiratory failure trach possible UTI possible sepsis urinary retention functional Quad CVA sepsis BCX+ PLAN respiratory care as is trach care and off vent as able oxygen IV antibiotics noted and cultures and sens reviewed ID reviewed urology followup maintain SNF meds as is aspiration precautions dc back to SNF pending ID clearance; wbc worse today monitor UO impression, plan, and exam edited and reviewed in detail care discussed with RN Subjective ROS Limited/Unobtainable: Yes Allergies: Coded Allergies: No Known Allergies (Unverified , 02/11/13) All Systems: reviewed and negative except above Subjective bcx+ UCx + wbc worse antibiotics noted respiratory noted on trach collar Objective Vital Signs Noted Objective WDWN NAD reduced breath sounds bilaterally without rhonchi or wheeze trach [id number] without MRG NABS nontender no HSM; GT no CCE poor ROM and LOC krishnan reviewed and edited HEENT: status post trach Microbiology Date/Time Source Procedure Growth Status 10/21/19 14:20 Nasopharynx Coronavirus COVID-19 PCR ([facility]) - Final Complete Laboratory Tests Noted Subjective ROS Limited/Unobtainable: No Constitutional: Denies: fever Allergies: Coded Allergies: No Known Allergies (Unverified , 02/11/13) All Systems: reviewed and negative except above Objective Last 24 Hour Vital Signs Date Time Temp Pulse Resp B/P (MAP) Pulse Ox O2 Delivery O2 Flow Rate FiO2 10/27/19 16:00 98.6 80 18 126/59 (81) 94 10/27/19 14:00 121/51 10/27/19 12:58 93 T-Piece 8.0 30 10/27/19 12:00 97.8 79 18 121/51 (74) 96 10/27/19 12:00 121/51 10/27/19 10:00 77 125/57 10/27/19 10:00 77 125/57 10/27/19 09:00 T-piece 9.0 10/27/19 08:00 98.5 77 18 125/57 (79) 95 10/27/19 07:39 95 T-Piece 8.0 30 10/27/19 07:38 95 20 95 T-Piece 8.0 30 10/27/19 05:27 119/60 10/27/19 05:26 119/60 10/27/19 04:00 98.1 81 18 119/60 (79) 95 10/27/19 00:28 94 T-Piece 8.0 30 10/27/19 00:00 98.2 82 20 117/59 (78) 93 10/27/19 00:00 117/59 10/26/19 21:49 146/76 10/26/19 21:00 T-piece 9.0 10/26/19 21:00 100 146/76 10/26/19 20:00 97.9 95 22 146/76 (99) 94 10/26/19 20:00 81 20 93 T-Piece 8.0 30 10/26/19 20:00 93 T-Piece 8.0 30 10/26/19 18:34 133/62 10/26/19 18:34 76 133/62 Intake and Output 10/26/19 10/27/19 19:00 07:00 Intake Total 30 ml 467.5 ml Output Total 1400 ml 600 ml Balance -1370 ml -132.5 ml IV Total 137.5 ml Tube Feeding 30 ml 330 ml Output Urine Total 1400 ml 600 ml # Bowel Movements 1 General Appearance: no acute distress HEENT: status post trach Abdomen: soft, non tender, other - GT feeding Genitourinary: other - Krishnan catheter Extremities: no edema Neurologic/Psychiatric: aphasia Laboratory Tests 10/27/19 05:00: White Blood Count 17.5H, Red Blood Count 3.76L, Hemoglobin 11.2L, Hematocrit 32.5L, Mean Corpuscular Volume 86, Mean Corpuscular Hemoglobin 29.7, Mean Corpuscular Hemoglobin Concent 34.4, Red Cell Distribution Width 12.9, Platelet Count 454H, Mean Platelet Volume 9.6, Neutrophils (%) (Auto) 78.1H, Lymphocytes (%) (Auto) 11.4L, Monocytes (%) (Auto) 6.8, Eosinophils (%) (Auto) 2.5, Basophils (%) (Auto) 1.2, Sodium Level 146H, Potassium Level 3.4L, Chloride Level 111H, Carbon Dioxide Level 26, Anion Gap 9, Blood Urea Nitrogen 12, Creatinine 1.2, Estimat Glomerular Filtration Rate > 60, Glucose Level 163H, Calcium Level 8.4L, Total Bilirubin 0.3, Aspartate Amino Transf (AST/SGOT) 35, Alanine Aminotransferase (ALT/SGPT) 42, Alkaline Phosphatase 77, Total Protein 6.6, Albumin 2.0L, Globulin 4.6, Albumin/Globulin Ratio 0.4L Current Medications Medications (Trade) Dose Ordered Sig/Magda Route PRN Reason Start Time Stop Time Status Last Admin Dose Admin Acetaminophen (Tylenol) 650 mg Q4H PRN GT For Pain/FEVER 10/19/19 12:00 11/18/19 11:59 10/22/19 05:18 Amlodipine Besylate (Norvasc) 5 mg BID GT 10/19/19 18:00 11/18/19 17:59 10/27/19 10:00 Ascorbic Acid (Vitamin C) 500 mg DAILY GT 10/19/19 13:30 11/18/19 13:29 10/27/19 10:00 Bisacodyl (Dulcolax) 10 mg DAILY RECTAL 10/19/19 13:30 01/17/20 13:29 10/26/19 11:00 Bisacodyl (Dulcolax) 10 mg DAILYPRN PRN RECTAL Constipation 10/21/19 09:45 01/19/20 09:44 Calcium Carbonate (Tums) 500 mg DAILY GT 10/20/19 09:00 01/18/20 08:59 10/27/19 10:00 Clonidine HCl (Catapres Tab) 0.1 mg Q6HR GT 10/19/19 13:30 01/17/20 13:29 10/26/19 13:57 Dextrose (Dextrose 50%) 25 ml Q30M PRN IV Hypoglycemia 10/19/19 12:00 01/17/20 11:59 Dextrose (Dextrose 50%) 50 ml Q30M PRN IV Hypoglycemia 10/19/19 12:00 01/17/20 11:59 Docusate Sodium (Colace) 100 mg DAILY NG 10/26/19 09:00 11/25/19 08:59 Doxazosin Mesylate (Cardura) 2 mg BEDTIME GT 10/19/19 21:00 11/18/19 20:59 10/26/19 21:00 Finasteride (Proscar) 5 mg DAILY ORAL 10/20/19 09:00 01/18/20 08:59 10/27/19 10:00 Heparin Sodium (Porcine) (Heparin 5000 units/ml) 5,000 units EVERY 12 HOURS SUBQ 10/19/19 21:00 12/03/19 20:59 10/27/19 10:00 Hydralazine HCl (Apresoline) 50 mg EVERY 8 HOURS GT 10/19/19 14:00 01/17/20 13:59 10/26/19 21:49 Insulin Aspart (NovoLOG) BEFORE MEALS AND HS SUBQ 10/19/19 16:30 01/17/20 16:29 10/27/19 06:28 Insulin Detemir (Levemir) 35 units BID SUBQ 10/19/19 18:00 01/17/20 17:59 10/27/19 10:00 Lactulose (Cephulac) 20 gm THREE TIMES A DAY ORAL 10/21/19 09:45 11/20/19 09:44 10/25/19 13:11 Magnesium Hydroxide (Mom) 30 ml DAILY PRN GT Constipation 10/19/19 12:00 11/18/19 11:59 Metoprolol Tartrate (Lopressor) 25 mg EVERY 12 HOURS GT 10/19/19 21:00 01/17/20 20:59 10/27/19 10:00 Piperacillin Sod/ Tazobactam Sod 3.375 gm/Sodium Chloride 110 ml @ 27.5 mls/hr Q8H IVPB 10/23/19 12:00 10/28/19 23:59 10/27/19 12:21 Polyethylene Glycol (Miralax) 17 gm DAILYPRN PRN ORAL Constipation 10/21/19 09:45 11/20/19 09:44 Saccharomyces Boulardii (Florastor) 250 mg TWICE A DAY GT 10/19/19 18:00 01/17/20 17:59 10/27/19 10:00 Sitagliptin Phosphate (Januvia) 100 mg DAILY GT 10/20/19 09:00 11/19/19 08:59 10/27/19 10:00 Sucralfate (Carafate) 1 gm Q6HR GT 10/19/19 13:30 01/17/20 13:29 10/27/19 12:20 Tamsulosin HCl (Flomax) 0.4 mg DAILY ORAL 10/20/19 09:00 11/19/19 08:59 10/27/19 10:00 Brady Mccurdy MD October 27, 2019 18:09
[2019-10-27 20:00] VITALS: BP 136/75
--- NOTE | 2019-10-27 21:39 | Surgery Progress Note ---
Surgery Progress Note Subjective Additional Comments leukocytosis improved exam stable no n/c/f/c Objective Last 24 Hour Vital Signs Date Time Temp Pulse Resp B/P (MAP) Pulse Ox O2 Delivery O2 Flow Rate FiO2 10/27/19 18:13 80 126/59 10/27/19 18:12 126/59 10/27/19 16:00 98.6 80 18 126/59 (81) 94 10/27/19 14:00 121/51 10/27/19 12:58 93 T-Piece 8.0 30 10/27/19 12:00 97.8 79 18 121/51 (74) 96 10/27/19 12:00 121/51 10/27/19 10:00 77 125/57 10/27/19 10:00 77 125/57 10/27/19 09:00 T-piece 9.0 10/27/19 08:00 98.5 77 18 125/57 (79) 95 10/27/19 07:39 95 T-Piece 8.0 30 10/27/19 07:38 95 20 95 T-Piece 8.0 30 10/27/19 05:27 119/60 10/27/19 05:26 119/60 10/27/19 04:00 98.1 81 18 119/60 (79) 95 10/27/19 00:28 94 T-Piece 8.0 30 10/27/19 00:00 98.2 82 20 117/59 (78) 93 10/27/19 00:00 117/59 10/26/19 21:49 146/76 I&O Intake and Output 10/26/19 10/27/19 19:00 07:00 Intake Total 30 ml 467.5 ml Output Total 1400 ml 600 ml Balance -1370 ml -132.5 ml IV Total 137.5 ml Tube Feeding 30 ml 330 ml Output Urine Total 1400 ml 600 ml # Bowel Movements 1 Dressing: other Wound: other Drains: other Cardiovascular: RSR Respiratory: decreased breath sounds Abdomen: soft, non-tender, present bowel sounds Extremities: no cyanosis Laboratory Tests Test 10/27/19 05:00 White Blood Count 17.5 K/UL (4.8-10.8) H Red Blood Count 3.76 M/UL (4.70-6.10) L Hemoglobin 11.2 G/DL (14.2-18.0) L Hematocrit 32.5 % (42.0-52.0) L Mean Corpuscular Volume 86 FL (80-99) Mean Corpuscular Hemoglobin 29.7 PG (27.0-31.0) Mean Corpuscular Hemoglobin Concent 34.4 G/DL (32.0-36.0) Red Cell Distribution Width 12.9 % (11.6-14.8) Platelet Count 454 K/UL (150-450) H Mean Platelet Volume 9.6 FL (6.5-10.1) Neutrophils (%) (Auto) 78.1 % (45.0-75.0) H Lymphocytes (%) (Auto) 11.4 % (20.0-45.0) L Monocytes (%) (Auto) 6.8 % (1.0-10.0) Eosinophils (%) (Auto) 2.5 % (0.0-3.0) Basophils (%) (Auto) 1.2 % (0.0-2.0) Sodium Level 146 MMOL/L (136-145) H Potassium Level 3.4 MMOL/L (3.5-5.1) L Chloride Level 111 MMOL/L (98-107) H Carbon Dioxide Level 26 MMOL/L (21-32) Anion Gap 9 mmol/L (5-15) Blood Urea Nitrogen 12 mg/dL (7-18) Creatinine 1.2 MG/DL (0.55-1.30) Estimat Glomerular Filtration Rate > 60 mL/min (>60) Glucose Level 163 MG/DL (74-106) H Calcium Level 8.4 MG/DL (8.5-10.1) L Total Bilirubin 0.3 MG/DL (0.2-1.0) Aspartate Amino Transf (AST/SGOT) 35 U/L (15-37) Alanine Aminotransferase (ALT/SGPT) 42 U/L (12-78) Alkaline Phosphatase 77 U/L (46-116) Total Protein 6.6 G/DL (6.4-8.2) Albumin 2.0 G/DL (3.4-5.0) L Globulin 4.6 g/dL Albumin/Globulin Ratio 0.4 (1.0-2.7) L Plan Problems: (1) Deep tissue injury Assessment & Plan: sacral DTI noted on admission prior historical scar noted from healed wound wash daily with NS apply foam dressings turn q2h off load pressure pillow under legs will follow with recs thank you (2) Krishnan catheter problem Assessment & Plan: resolved urology place new krishnan functional (3) Failure to thrive Assessment & Plan: DAILY ESTIMATED NEEDS: Needs based on DTI, DM 78kg adj 22-27 kcals/kg 9811-0110 total kcals 1.25-1.5 g protein/kg 98-117 g total protein 25-30 mL/kg 4118-6002 total fluid mLs NUTRITION DIAGNOSIS: Swallowing difficulty R/T respiratory status as evidenced by pt vent dep via T-collar w/ PEG feedings CURRENT TF:Glucerna 1.5@ 30ml/hr x 24 hrs ENTERAL NUTRITION RECOMMENDATIONS: Glucerna 1.5 @ 50ml/hr x 24 hrs to provide 1200ml, 1800 kcal, 99g pro. 911ml free H2O - Increase goal rate to 50ml/hr x 24 hrs to meet 100% est kcal/prot needs - HOB over 30 degrees - H20 flush of 180ml q 4 hrs ADDITIONAL RECOMMENDATIONS: - Change bed scale to jose bed for accurate CBW - When TF at goal is tolerated, rec KURTIS in 4oz H2O BID for wound care, continue Vit C - Monitor lytes, replete as needed (4) Leukocytosis Assessment & Plan: uti abx given improved labs improved (5) Fecal impaction Assessment & Plan: Abundant inspissated stool distending the rectum. Proximally, there is gas throughout the colon. Suspected fecal impaction. No clear free air on exam that includes the dome of the right hemidiaphragm. Right femoral vascular catheter. Krishnan catheter. Lumbar dextrocurvature. Chronic height loss to the leftward L3 level. Suture material again noted. IMPRESSION: Suspected fecal impaction. will start bowel regimen and enema may need manual disimpaction will follow with recs thank you Findings: Gastrostomy tube noted. There is a right transfemoral central venous catheter. Krishnan catheter is noted. Surgical material noted in the pelvis. Bowel gas pattern is nonspecific but not overtly obstructive. Dense stool in the rectum. Decreased. Interstitial and airspace disease noted in the bilateral lower lungs. There are degenerative changes in the spine. Degenerative versus chronic post traumatic changes of the left femur. IMPRESSION: Nonspecific but not overtly obstructive bowel gas pattern. Interval decrease in dense stool in the rectum. Indwelling gastrostomy tube. Interstitial and airspace disease noted in the bilateral lower lungs. Additional findings as above. Raheem Kolb October 27, 2019 21:39
[2019-10-27] MEDS: Doxazosin 1mg Tab GT SCH (21:54)
[2019-10-28] VITALS: BP 139/72
[2019-10-28] MEDS: Piperacillin/Tazobactam 3.375 GM in NS 110 ML IVPB SCH (03:17)
[2019-10-28 04:00] VITALS: BP 148/75
[2019-10-28 04:23] LABS: HEMATOCRIT 32.5 % (42.0-52.0); HEMOGLOBIN 11.1 G/DL (14.2-18.0); MEAN CORPUSCULAR VOLUME 87 FL (80-99); PLATELET COUNT 469 K/UL (150-450); RED BLOOD COUNT 3.74 M/UL (4.70-6.10); RED CELL DISTRIBUTION WIDTH 13.6 % (11.6-14.8); WHITE BLOOD COUNT 18.3 K/UL (4.8-10.8)
[2019-10-28 04:42] LABS: ALANINE AMINOTRANSFERASE 42 U/L (12-78); ALBUMIN 2.1 G/DL (3.4-5.0); ALBUMIN/GLOBULIN RATIO 0.5 (1.0-2.7); ALKALINE PHOSPHATASE 66 U/L (46-116); ANION GAP 9 mmol/L (5-15); ASPARTATE AMINO TRANSFERASE 41 U/L (15-37); BILIRUBIN,TOTAL 0.5 MG/DL (0.2-1.0); BLOOD UREA NITROGEN 12 mg/dL (7-18); CALCIUM 8.5 MG/DL (8.5-10.1); CARBON DIOXIDE 26 MMOL/L (21-32); CHLORIDE 110 MMOL/L (98-107); CREATININE 1.2 MG/DL (0.55-1.30); POTASSIUM 3.4 MMOL/L (3.5-5.1); SODIUM 145 MMOL/L (136-145)
[2019-10-28] MEDS: Sucralfate 1gm tab GT SCH ×4 (05:02→23:58)
[2019-10-28] MEDS: HydrALAZINE 50mg tab GT SCH ×3 (05:02→21:17)
[2019-10-28] MEDS: NovoLOG Insulin Flexpen SUBQ SCH ×4 (06:30→21:52)
[2019-10-28 08:00] VITALS: BP 136/64
--- NOTE | 2019-10-28 08:48 | Pulmonology Progress Note ---
Assessment/Plan Assessment/Plan IMPRESSION Respiratory failure trach possible UTI possible sepsis urinary retention functional Quad CVA sepsis BCX+ PLAN respiratory care noted suction as needed trach care and off vent as able oxygen IV antibiotics noted ID reviewed urology followup maintain SNF meds as is aspiration precautions dc back to SNF when stable and cleared monitor UO/ maintain krishnan off load position change impression, plan, and exam edited and reviewed in detail care discussed with RN Subjective ROS Limited/Unobtainable: Yes Constitutional: Denies: fever Allergies: Coded Allergies: No Known Allergies (Unverified , 02/11/13) All Systems: reviewed and negative except above Subjective bcx+ UCx + wbc near baseline antibiotics noted respiratory noted on trach collar and off vent weekend events reviewed Objective Last 24 Hour Vital Signs Date Time Temp Pulse Resp B/P (MAP) Pulse Ox O2 Delivery O2 Flow Rate FiO2 10/28/19 04:00 98.2 106 19 148/75 (99) 94 10/28/19 01:44 94 T-Piece 8.0 30 10/28/19 00:00 98.9 94 19 139/72 (94) 95 10/27/19 21:00 T-piece 9.0 10/27/19 20:03 96 T-Piece 8.0 30 10/27/19 20:03 95 20 96 T-Piece 8.0 30 10/27/19 20:00 98.2 95 19 136/75 (95) 96 10/27/19 18:13 80 126/59 10/27/19 18:12 126/59 10/27/19 16:00 98.6 80 18 126/59 (81) 94 10/27/19 14:00 121/51 10/27/19 12:58 93 T-Piece 8.0 30 10/27/19 12:00 97.8 79 18 121/51 (74) 96 10/27/19 12:00 121/51 10/27/19 10:00 77 125/57 10/27/19 10:00 77 125/57 10/27/19 09:00 T-piece 9.0 Intake and Output 10/27/19 10/28/19 19:00 07:00 Intake Total 137.5 ml Output Total 700 ml Balance -562.5 ml IV Total 137.5 ml Output Urine Total 700 ml Objective WDWN NAD reduced breath sounds bilaterally without rhonchi or wheeze trach in place [id number] without MRG NABS nontender no HSM; GT no CCE poor ROM and LOC krishnan reviewed and edited General Appearance: no acute distress HEENT: status post trach Abdomen: soft, non tender, other - GT feeding Genitourinary: other - Krishnan catheter Extremities: no edema Neurologic/Psychiatric: aphasia Laboratory Tests 10/28/19 04:00: White Blood Count 18.3H, Red Blood Count 3.74L, Hemoglobin 11.1L, Hematocrit 32.5L, Mean Corpuscular Volume 87, Mean Corpuscular Hemoglobin 29.5, Mean Corpuscular Hemoglobin Concent 34.0, Red Cell Distribution Width 13.6, Platelet Count 469H, Mean Platelet Volume 9.5, Neutrophils (%) (Auto) , Lymphocytes (%) ( Auto) , Monocytes (%) (Auto) , Eosinophils (%) (Auto) , Basophils (%) (Auto) , Differential Total Cells Counted 100, Neutrophils % (Manual) 72, Lymphocytes % ( Manual) 13L, Monocytes % (Manual) 10, Eosinophils % (Manual) 4H, Basophils % ( Manual) 1, Band Neutrophils 0, Platelet Estimate Adequate, Platelet Morphology Normal, Hypochromasia 1+, Anisocytosis 1+, Sodium Level 145, Potassium Level 3.4L, Chloride Level 110H, Carbon Dioxide Level 26, Anion Gap 9, Blood Urea Nitrogen 12, Creatinine 1.2, Estimat Glomerular Filtration Rate > 60, Glucose Level 140H, Calcium Level 8.5, Total Bilirubin 0.5, Aspartate Amino Transf (AST/ SGOT) 41H, Alanine Aminotransferase (ALT/SGPT) 42, Alkaline Phosphatase 66, Total Protein 6.6, Albumin 2.1L, Globulin 4.5, Albumin/Globulin Ratio 0.5L Current Medications Medications (Trade) Dose Ordered Sig/Magda Route PRN Reason Start Time Stop Time Status Last Admin Dose Admin Acetaminophen (Tylenol) 650 mg Q4H PRN GT For Pain/FEVER 10/19/19 12:00 11/18/19 11:59 10/22/19 05:18 Amlodipine Besylate (Norvasc) 5 mg BID GT 10/19/19 18:00 11/18/19 17:59 10/27/19 18:13 Ascorbic Acid (Vitamin C) 500 mg DAILY GT 10/19/19 13:30 11/18/19 13:29 10/27/19 10:00 Bisacodyl (Dulcolax) 10 mg DAILY RECTAL 10/19/19 13:30 01/17/20 13:29 10/26/19 11:00 Bisacodyl (Dulcolax) 10 mg DAILYPRN PRN RECTAL Constipation 10/21/19 09:45 01/19/20 09:44 Calcium Carbonate (Tums) 500 mg DAILY GT 10/20/19 09:00 01/18/20 08:59 10/27/19 10:00 Clonidine HCl (Catapres TTS-1) 1 patch QWEEK TDERMAL 10/28/19 09:00 01/26/20 08:59 Clonidine HCl (Catapres Tab) 0.1 mg Q6HR GT 10/19/19 13:30 01/17/20 13:29 10/27/19 18:12 Dextrose (Dextrose 50%) 25 ml Q30M PRN IV Hypoglycemia 10/19/19 12:00 01/17/20 11:59 Dextrose (Dextrose 50%) 50 ml Q30M PRN IV Hypoglycemia 10/19/19 12:00 01/17/20 11:59 Docusate Sodium (Colace) 100 mg DAILY NG 10/26/19 09:00 11/25/19 08:59 Doxazosin Mesylate (Cardura) 2 mg BEDTIME GT 10/19/19 21:00 11/18/19 20:59 10/26/19 21:00 Finasteride (Proscar) 5 mg DAILY ORAL 10/20/19 09:00 01/18/20 08:59 10/27/19 10:00 Heparin Sodium (Porcine) (Heparin 5000 units/ml) 5,000 units EVERY 12 HOURS SUBQ 10/19/19 21:00 12/03/19 20:59 10/27/19 21:00 Hydralazine HCl (Apresoline) 50 mg EVERY 8 HOURS GT 10/19/19 14:00 01/17/20 13:59 10/26/19 21:49 Insulin Aspart (NovoLOG) BEFORE MEALS AND HS SUBQ 10/19/19 16:30 01/17/20 16:29 10/27/19 06:28 Insulin Detemir (Levemir) 35 units BID SUBQ 10/19/19 18:00 01/17/20 17:59 10/27/19 10:00 Lactulose (Cephulac) 20 gm THREE TIMES A DAY ORAL 10/21/19 09:45 11/20/19 09:44 10/25/19 13:11 Magnesium Hydroxide (Mom) 30 ml DAILY PRN GT Constipation 10/19/19 12:00 11/18/19 11:59 Metoprolol Tartrate (Lopressor) 25 mg EVERY 12 HOURS GT 10/19/19 21:00 01/17/20 20:59 10/27/19 10:00 Piperacillin Sod/ Tazobactam Sod 3.375 gm/Sodium Chloride 110 ml @ 27.5 mls/hr Q8H IVPB 10/23/19 12:00 10/28/19 23:59 10/28/19 03:17 Polyethylene Glycol (Miralax) 17 gm DAILYPRN PRN ORAL Constipation 10/21/19 09:45 11/20/19 09:44 Saccharomyces Boulardii (Florastor) 250 mg TWICE A DAY GT 10/19/19 18:00 01/17/20 17:59 10/27/19 18:13 Sitagliptin Phosphate (Januvia) 100 mg DAILY GT 10/20/19 09:00 11/19/19 08:59 10/27/19 10:00 Sucralfate (Carafate) 1 gm Q6HR GT 10/19/19 13:30 01/17/20 13:29 10/27/19 18:13 Tamsulosin HCl (Flomax) 0.4 mg DAILY ORAL 10/20/19 09:00 11/19/19 08:59 10/27/19 10:00 Silver Diaz MD October 28, 2019 08:48
[2019-10-28] MEDS: Heparin 5000 units/ml inj SUBQ SCH ×2 (09:33→21:18)
[2019-10-28] MEDS: Levemir Flexpen SUBQ SCH ×2 (09:34→18:09)
[2019-10-28] MEDS: Tamsulosin 0.4mg cap ORAL SCH (09:37)
[2019-10-28] MEDS: Docusate 100mg/10ml Liq NG SCH (09:37)
[2019-10-28] MEDS: Ascorbic Acid 500mg tab GT SCH (09:37)
[2019-10-28] MEDS: Tums 500mg GT SCH (09:37)
[2019-10-28] MEDS: Lactulose 20gm/30ml UDC ORAL SCH ×3 (09:37→17:09)
--- NOTE | 2019-10-28 11:15 | Infectious Diseases Prog Note ---
"Assessment/Plan Assessment/Plan antibiotics : zosyn A 1. klebsiella | enterococcus sepsis 2. e.coli | providencia UTI 3. COVID 19 test negative [id number] 4. diabetes mellitus 5. hypertension 6. CVA P 1. d/c zosyn 2. observe off antibiotics 3. will follow up cultures Subjective ROS Limited/Unobtainable: Yes Allergies: Coded Allergies: No Known Allergies (Unverified , 02/11/13) Objective Vital Signs Last 24 Hour Vital Signs Date Time Temp Pulse Resp B/P (MAP) Pulse Ox O2 Delivery O2 Flow Rate FiO2 10/28/19 09:35 136/64 10/28/19 09:00 T-piece 9.0 10/28/19 08:00 98.7 95 19 136/64 (88) 99 10/28/19 04:00 98.2 106 19 148/75 (99) 94 10/28/19 01:44 94 T-Piece 8.0 30 10/28/19 00:00 98.9 94 19 139/72 (94) 95 10/27/19 21:00 T-piece 9.0 10/27/19 20:03 96 T-Piece 8.0 30 10/27/19 20:03 95 20 96 T-Piece 8.0 30 10/27/19 20:00 98.2 95 19 136/75 (95) 96 10/27/19 18:13 80 126/59 10/27/19 18:12 126/59 10/27/19 16:00 98.6 80 18 126/59 (81) 94 10/27/19 14:00 121/51 10/27/19 12:58 93 T-Piece 8.0 30 10/27/19 12:00 97.8 79 18 121/51 (74) 96 10/27/19 12:00 121/51 Height (Feet): 5 Height (Inches): 10.00 Weight (Pounds): 189 HEENT: status post trach Respiratory/Chest: lungs clear Cardiovascular: normal rate, regular rhythm, no gallop/murmur Abdomen: soft, non tender, other - GT Extremities: no edema Laboratory Tests Test 10/28/19 04:00 White Blood Count 18.3 K/UL (4.8-10.8) H Red Blood Count 3.74 M/UL (4.70-6.10) L Hemoglobin 11.1 G/DL (14.2-18.0) L Hematocrit 32.5 % (42.0-52.0) L Mean Corpuscular Volume 87 FL (80-99) Mean Corpuscular Hemoglobin 29.5 PG (27.0-31.0) Mean Corpuscular Hemoglobin Concent 34.0 G/DL (32.0-36.0) Red Cell Distribution Width 13.6 % (11.6-14.8) Platelet Count 469 K/UL (150-450) H Mean Platelet Volume 9.5 FL (6.5-10.1) Neutrophils (%) (Auto) % (45.0-75.0) Lymphocytes (%) (Auto) % (20.0-45.0) Monocytes (%) (Auto) % (1.0-10.0) Eosinophils (%) (Auto) % (0.0-3.0) Basophils (%) (Auto) % (0.0-2.0) Differential Total Cells Counted 100 Neutrophils % (Manual) 72 % (45-75) Lymphocytes % (Manual) 13 % (20-45) L Monocytes % (Manual) 10 % (1-10) Eosinophils % (Manual) 4 % (0-3) H Basophils % (Manual) 1 % (0-2) Band Neutrophils 0 % (0-8) Platelet Estimate Adequate Platelet Morphology Normal Hypochromasia 1+ Anisocytosis 1+ Sodium Level 145 MMOL/L (136-145) Potassium Level 3.4 MMOL/L (3.5-5.1) L Chloride Level 110 MMOL/L (98-107) H Carbon Dioxide Level 26 MMOL/L (21-32) Anion Gap 9 mmol/L (5-15) Blood Urea Nitrogen 12 mg/dL (7-18) Creatinine 1.2 MG/DL (0.55-1.30) Estimat Glomerular Filtration Rate > 60 mL/min (>60) Glucose Level 140 MG/DL (74-106) H Calcium Level 8.5 MG/DL (8.5-10.1) Total Bilirubin 0.5 MG/DL (0.2-1.0) Aspartate Amino Transf (AST/SGOT) 41 U/L (15-37) H Alanine Aminotransferase (ALT/SGPT) 42 U/L (12-78) Alkaline Phosphatase 66 U/L (46-116) Total Protein 6.6 G/DL (6.4-8.2) Albumin 2.1 G/DL (3.4-5.0) L Globulin 4.5 g/dL Albumin/Globulin Ratio 0.5 (1.0-2.7) L Current Medications Medications (Trade) Dose Ordered Sig/Magda Route PRN Reason Start Time Stop Time Status Last Admin Dose Admin Acetaminophen (Tylenol) 650 mg Q4H PRN GT For Pain/FEVER 10/19/19 12:00 11/18/19 11:59 10/22/19 05:18 Amlodipine Besylate (Norvasc) 5 mg BID GT 10/19/19 18:00 11/18/19 17:59 10/27/19 18:13 Ascorbic Acid (Vitamin C) 500 mg DAILY GT 10/19/19 13:30 11/18/19 13:29 10/27/19 10:00 Bisacodyl (Dulcolax) 10 mg DAILY RECTAL 10/19/19 13:30 01/17/20 13:29 10/26/19 11:00 Bisacodyl (Dulcolax) 10 mg DAILYPRN PRN RECTAL Constipation 10/21/19 09:45 01/19/20 09:44 Calcium Carbonate (Tums) 500 mg DAILY GT 10/20/19 09:00 01/18/20 08:59 10/27/19 10:00 Clonidine HCl (Catapres TTS-1) 1 patch QWEEK TDERMAL 10/28/19 09:00 01/26/20 08:59 10/28/19 09:35 Clonidine HCl (Catapres Tab) 0.1 mg Q6HR GT 10/19/19 13:30 01/17/20 13:29 10/27/19 18:12 Dextrose (Dextrose 50%) 25 ml Q30M PRN IV Hypoglycemia 10/19/19 12:00 01/17/20 11:59 Dextrose (Dextrose 50%) 50 ml Q30M PRN IV Hypoglycemia 10/19/19 12:00 01/17/20 11:59 Docusate Sodium (Colace) 100 mg DAILY NG 10/26/19 09:00 11/25/19 08:59 Doxazosin Mesylate (Cardura) 2 mg BEDTIME GT 10/19/19 21:00 11/18/19 20:59 10/26/19 21:00 Finasteride (Proscar) 5 mg DAILY ORAL 10/20/19 09:00 01/18/20 08:59 10/27/19 10:00 Heparin Sodium (Porcine) (Heparin 5000 units/ml) 5,000 units EVERY 12 HOURS SUBQ 10/19/19 21:00 12/03/19 20:59 10/28/19 09:33 Hydralazine HCl (Apresoline) 50 mg EVERY 8 HOURS GT 10/19/19 14:00 01/17/20 13:59 10/26/19 21:49 Insulin Aspart (NovoLOG) BEFORE MEALS AND HS SUBQ 10/19/19 16:30 01/17/20 16:29 10/27/19 06:28 Insulin Detemir (Levemir) 35 units BID SUBQ 10/19/19 18:00 01/17/20 17:59 10/28/19 09:34 Lactulose (Cephulac) 20 gm THREE TIMES A DAY ORAL 10/21/19 09:45 11/20/19 09:44 10/25/19 13:11 Magnesium Hydroxide (Mom) 30 ml DAILY PRN GT Constipation 10/19/19 12:00 11/18/19 11:59 Metoprolol Tartrate (Lopressor) 25 mg EVERY 12 HOURS GT 10/19/19 21:00 01/17/20 20:59 10/27/19 10:00 Piperacillin Sod/ Tazobactam Sod 3.375 gm/Sodium Chloride 110 ml @ 27.5 mls/hr Q8H IVPB 10/23/19 12:00 10/28/19 23:59 10/28/19 03:17 Polyethylene Glycol (Miralax) 17 gm DAILYPRN PRN ORAL Constipation 10/21/19 09:45 11/20/19 09:44 Saccharomyces Boulardii (Florastor) 250 mg TWICE A DAY GT 10/19/19 18:00 01/17/20 17:59 10/27/19 18:13 Sitagliptin Phosphate (Januvia) 100 mg DAILY GT 10/20/19 09:00 11/19/19 08:59 10/27/19 10:00 Sucralfate (Carafate) 1 gm Q6HR GT 10/19/19 13:30 01/17/20 13:29 10/27/19 18:13 Tamsulosin HCl (Flomax) 0.4 mg DAILY ORAL 10/20/19 09:00 11/19/19 08:59 10/27/19 10:00 Jesica Alegria MD October 28, 2019 11:15"
[2019-10-28 12:00] VITALS: BP 137/68
--- NOTE | 2019-10-28 15:03 | Surgery Progress Note ---
Surgery Progress Note Subjective Additional Comments no acute events labs noted micro reviewed dressings intact Objective Last 24 Hour Vital Signs Date Time Temp Pulse Resp B/P (MAP) Pulse Ox O2 Delivery O2 Flow Rate FiO2 10/28/19 12:00 98.6 90 17 137/68 (91) 96 10/28/19 09:35 136/64 10/28/19 09:00 T-piece 9.0 10/28/19 08:00 98.7 95 19 136/64 (88) 99 10/28/19 04:00 98.2 106 19 148/75 (99) 94 10/28/19 01:44 94 T-Piece 8.0 30 10/28/19 00:00 98.9 94 19 139/72 (94) 95 10/27/19 21:00 T-piece 9.0 10/27/19 20:03 96 T-Piece 8.0 30 10/27/19 20:03 95 20 96 T-Piece 8.0 30 10/27/19 20:00 98.2 95 19 136/75 (95) 96 10/27/19 18:13 80 126/59 10/27/19 18:12 126/59 10/27/19 16:00 98.6 80 18 126/59 (81) 94 I&O Intake and Output 10/27/19 10/28/19 19:00 07:00 Intake Total 137.5 ml Output Total 700 ml Balance -562.5 ml IV Total 137.5 ml Output Urine Total 700 ml Dressing: other Wound: other Drains: other Cardiovascular: RSR Respiratory: decreased breath sounds Abdomen: soft, non-tender, present bowel sounds Extremities: no cyanosis Laboratory Tests Test 10/28/19 04:00 White Blood Count 18.3 K/UL (4.8-10.8) H Red Blood Count 3.74 M/UL (4.70-6.10) L Hemoglobin 11.1 G/DL (14.2-18.0) L Hematocrit 32.5 % (42.0-52.0) L Mean Corpuscular Volume 87 FL (80-99) Mean Corpuscular Hemoglobin 29.5 PG (27.0-31.0) Mean Corpuscular Hemoglobin Concent 34.0 G/DL (32.0-36.0) Red Cell Distribution Width 13.6 % (11.6-14.8) Platelet Count 469 K/UL (150-450) H Mean Platelet Volume 9.5 FL (6.5-10.1) Neutrophils (%) (Auto) % (45.0-75.0) Lymphocytes (%) (Auto) % (20.0-45.0) Monocytes (%) (Auto) % (1.0-10.0) Eosinophils (%) (Auto) % (0.0-3.0) Basophils (%) (Auto) % (0.0-2.0) Differential Total Cells Counted 100 Neutrophils % (Manual) 72 % (45-75) Lymphocytes % (Manual) 13 % (20-45) L Monocytes % (Manual) 10 % (1-10) Eosinophils % (Manual) 4 % (0-3) H Basophils % (Manual) 1 % (0-2) Band Neutrophils 0 % (0-8) Platelet Estimate Adequate Platelet Morphology Normal Hypochromasia 1+ Anisocytosis 1+ Sodium Level 145 MMOL/L (136-145) Potassium Level 3.4 MMOL/L (3.5-5.1) L Chloride Level 110 MMOL/L (98-107) H Carbon Dioxide Level 26 MMOL/L (21-32) Anion Gap 9 mmol/L (5-15) Blood Urea Nitrogen 12 mg/dL (7-18) Creatinine 1.2 MG/DL (0.55-1.30) Estimat Glomerular Filtration Rate > 60 mL/min (>60) Glucose Level 140 MG/DL (74-106) H Calcium Level 8.5 MG/DL (8.5-10.1) Total Bilirubin 0.5 MG/DL (0.2-1.0) Aspartate Amino Transf (AST/SGOT) 41 U/L (15-37) H Alanine Aminotransferase (ALT/SGPT) 42 U/L (12-78) Alkaline Phosphatase 66 U/L (46-116) Total Protein 6.6 G/DL (6.4-8.2) Albumin 2.1 G/DL (3.4-5.0) L Globulin 4.5 g/dL Albumin/Globulin Ratio 0.5 (1.0-2.7) L Plan Problems: (1) Deep tissue injury Assessment & Plan: sacral DTI noted on admission prior historical scar noted from healed wound wash daily with NS apply foam dressings turn q2h off load pressure pillow under legs will follow with recs thank you (2) Krishnan catheter problem Assessment & Plan: resolved urology place new krishnan functional (3) Failure to thrive Assessment & Plan: DAILY ESTIMATED NEEDS: Needs based on DTI, DM 78kg adj 22-27 kcals/kg 7745-0118 total kcals 1.25-1.5 g protein/kg 98-117 g total protein 25-30 mL/kg 1440-1266 total fluid mLs NUTRITION DIAGNOSIS: Swallowing difficulty R/T respiratory status as evidenced by pt vent dep via T-collar w/ PEG feedings CURRENT TF:Glucerna 1.5@ 30ml/hr x 24 hrs ENTERAL NUTRITION RECOMMENDATIONS: Glucerna 1.5 @ 50ml/hr x 24 hrs to provide 1200ml, 1800 kcal, 99g pro. 911ml free H2O - Increase goal rate to 50ml/hr x 24 hrs to meet 100% est kcal/prot needs - HOB over 30 degrees - H20 flush of 180ml q 4 hrs ADDITIONAL RECOMMENDATIONS: - Change bed scale to mount hope bed for accurate CBW - When TF at goal is tolerated, rec KURTIS in 4oz H2O BID for wound care, continue Vit C - Monitor lytes, replete as needed (4) Leukocytosis Assessment & Plan: uti abx given improved labs improved (5) Fecal impaction Assessment & Plan: Abundant inspissated stool distending the rectum. Proximally, there is gas throughout the colon. Suspected fecal impaction. No clear free air on exam that includes the dome of the right hemidiaphragm. Right femoral vascular catheter. Krishnan catheter. Lumbar dextrocurvature. Chronic height loss to the leftward L3 level. Suture material again noted. IMPRESSION: Suspected fecal impaction. will start bowel regimen and enema may need manual disimpaction will follow with recs thank you Findings: Gastrostomy tube noted. There is a right transfemoral central venous catheter. Krishnan catheter is noted. Surgical material noted in the pelvis. Bowel gas pattern is nonspecific but not overtly obstructive. Dense stool in the rectum. Decreased. Interstitial and airspace disease noted in the bilateral lower lungs. There are degenerative changes in the spine. Degenerative versus chronic post traumatic changes of the left femur. IMPRESSION: Nonspecific but not overtly obstructive bowel gas pattern. Interval decrease in dense stool in the rectum. Indwelling gastrostomy tube. Interstitial and airspace disease noted in the bilateral lower lungs. Additional findings as above. Raheem Kolb October 28, 2019 15:03
--- NOTE | 2019-10-28 15:54 | Diagnostic Imaging Report ---
Indication: Post gastrostomy placement or replacement Technique: Supine view of the abdomen after injection of water-soluble contrast into gastrostomy Comparison: 10/23/2019 noncontrast radiograph Findings: Contrast opacifies the stomach, duodenum, and proximal small bowel. No contrast extravasation is demonstrated. The bowel gas pattern is unremarkable. Impression: Satisfactory position of gastrostomy tube
[2019-10-28 16:00] VITALS: BP 161/82
--- NOTE | 2019-10-28 16:00 | General Progress Note ---
Assessment/Plan Problem List: (1) UTI (urinary tract infection) ICD Codes: N39.0 - Urinary tract infection, site not specified SNOMED: 22356568 (2) Encephalopathy acute ICD Codes: G93.40 - Encephalopathy, unspecified SNOMED: 6816606 (3) Leukocytosis ICD Codes: D72.829 - Elevated white blood cell count, unspecified SNOMED: 545422545 (4) Sepsis ICD Codes: A41.9 - Sepsis, unspecified organism SNOMED: 07208570 (5) Acute urinary tract infection (6) Diabetes mellitus out of control ICD Codes: E11.9 - Diabetes mellitus out of control SNOMED: 184535796 (7) G tube feedings ICD Codes: Z93.1 - G tube feedings SNOMED: 865199018 (8) Septicemia (9) Fecal impaction ICD Codes: K56.41 - Fecal impaction SNOMED: 24482827 (10) Krishnan catheter problem ICD Codes: T83.9XXA - Unsp complication of genitourinary prosth dev/grft, init SNOMED: 217841042 Status: stable, progressing Assessment/Plan: cont iv abx krishnan care monitor bs bowel regime feeds follow up labs vent prn resp rx/t bar BP rx tried to leave message with son but telephone full. Subjective ROS Limited/Unobtainable: Yes Constitutional: Reports: malaise, weakness HEENT: Reports: no symptoms Cardiovascular: Reports: no symptoms Respiratory: Reports: cough, sputum Gastrointestinal/Abdominal: Reports: difficulty swallowing Genitourinary: Reports: no symptoms Neurologic/Psychiatric: Reports: pre-existing deficit Endocrine: Reports: no symptoms Hematologic/Lymphatic: Reports: no symptoms Allergies: Coded Allergies: No Known Allergies (Unverified , 02/11/13) All Systems: reviewed and negative except above Subjective no events. Id and pulm appreciated. having BMs. tolerating feeds. on iv abx. on trach collar. mild congestion. occasional suctioning required. nonverbal at baseline. Blood cultures and urine cultures noted. gt accidentally became dislodged;. Objective Last 24 Hour Vital Signs Date Time Temp Pulse Resp B/P (MAP) Pulse Ox O2 Delivery O2 Flow Rate FiO2 10/28/19 12:00 98.6 90 17 137/68 (91) 96 10/28/19 09:35 136/64 10/28/19 09:00 T-piece 9.0 10/28/19 08:00 98.7 95 19 136/64 (88) 99 10/28/19 04:00 98.2 106 19 148/75 (99) 94 10/28/19 01:44 94 T-Piece 8.0 30 10/28/19 00:00 98.9 94 19 139/72 (94) 95 10/27/19 21:00 T-piece 9.0 10/27/19 20:03 96 T-Piece 8.0 30 10/27/19 20:03 95 20 96 T-Piece 8.0 30 10/27/19 20:00 98.2 95 19 136/75 (95) 96 10/27/19 18:13 80 126/59 10/27/19 18:12 126/59 10/27/19 16:00 98.6 80 18 126/59 (81) 94 Intake and Output 10/27/19 10/28/19 19:00 07:00 Intake Total 137.5 ml Output Total 700 ml Balance -562.5 ml IV Total 137.5 ml Output Urine Total 700 ml Laboratory Tests 10/28/19 04:00: White Blood Count 18.3H, Red Blood Count 3.74L, Hemoglobin 11.1L, Hematocrit 32.5L, Mean Corpuscular Volume 87, Mean Corpuscular Hemoglobin 29.5, Mean Corpuscular Hemoglobin Concent 34.0, Red Cell Distribution Width 13.6, Platelet Count 469H, Mean Platelet Volume 9.5, Neutrophils (%) (Auto) , Lymphocytes (%) ( Auto) , Monocytes (%) (Auto) , Eosinophils (%) (Auto) , Basophils (%) (Auto) , Differential Total Cells Counted 100, Neutrophils % (Manual) 72, Lymphocytes % ( Manual) 13L, Monocytes % (Manual) 10, Eosinophils % (Manual) 4H, Basophils % ( Manual) 1, Band Neutrophils 0, Platelet Estimate Adequate, Platelet Morphology Normal, Hypochromasia 1+, Anisocytosis 1+, Sodium Level 145, Potassium Level 3.4L, Chloride Level 110H, Carbon Dioxide Level 26, Anion Gap 9, Blood Urea Nitrogen 12, Creatinine 1.2, Estimat Glomerular Filtration Rate > 60, Glucose Level 140H, Calcium Level 8.5, Total Bilirubin 0.5, Aspartate Amino Transf (AST/ SGOT) 41H, Alanine Aminotransferase (ALT/SGPT) 42, Alkaline Phosphatase 66, Total Protein 6.6, Albumin 2.1L, Globulin 4.5, Albumin/Globulin Ratio 0.5L Height (Feet): 5 Height (Inches): 10.00 Weight (Pounds): 189 Objective General Appearance: WD/WN, lethargic, confused EENT: normal ENT inspection Neck: non-tender, normal alignment, supple Cardiovascular: normal peripheral pulses, normal rate, regular rhythm Respiratory/Chest: lungs clear, normal breath sounds, no respiratory distress, no accessory muscle use Abdomen: normal bowel sounds, non tender, soft, no organomegaly Edema: no edema noted Arm (L), no edema noted Arm (R), no edema noted Leg (L), no edema noted Leg (R), no edema noted Pedal (L), no edema noted Pedal (R), no edema noted Generalized Neurologic: disoriented, unresponsive, aphasia Skin: normal pigmentation Jeremiah Perkins MD October 28, 2019 16:00
[2019-10-28 20:00] VITALS: BP 138/62
[2019-10-28] MEDS: Doxazosin 1mg Tab GT SCH (21:17)
--- NOTE | 2019-10-28 23:00 | Consultation ---
DATE OF CONSULTATION: 10/28/2019 CONSULTING PHYSICIAN: Pro Porras MD. REFERRING PHYSICIAN: Jeremiah Perkins MD. CHIEF COMPLAINT: Malfunctioning G-tube. HISTORY OF PRESENT ILLNESS: Most of history is per chart. The patient has numerous medical problems. He has been having dysphagia with a G-tube. G-tube came out yesterday. Nurses placed Peters at the G-tube site and GI consult was requested for G-tube replacement. PAST MEDICAL HISTORY: 1. CVA. 2. Functional quadriplegia. 3. Diabetes. 4. Hypertension. 5. Chronic leukocytosis. 6. BPH. 7. Urinary retention. 8. Chronic respiratory failure. 9. History of dysphagia with a G-tube. 10. History of respiratory failure with trach. ALLERGIES: No known drug allergies. MEDICATIONS: Please see medication reconciliation list. FAMILY HISTORY: Noncontributory. REVIEW OF SYSTEMS: Unable to obtain. PAST SURGICAL HISTORY: Tracheostomy. PHYSICAL EXAMINATION: VITAL SIGNS: Temperature is 98.6, pulse 90, respirations 17, blood pressure 137/68. HEENT: Normocephalic and atraumatic. Mildly pale conjunctivae. NECK: Supple. No evidence of obvious lymphadenopathy. CARDIOVASCULAR: Regular rate and rhythm. Plus S1, S2. LUNGS: Decreased breath sounds bilaterally based on the supine exam. ABDOMEN: Soft. Bowel sounds are present. There is a Peters at the G-tube site. No rebound. No guarding. No peritoneal sign. EXTREMITIES: No cyanosis. No clubbing. LABORATORY DATA: White count is 18,000, hemoglobin 11, hematocrit 32, platelet count is 469,000. Sodium 145, potassium 3.4, BUN is 12, creatinine is 1.2. ASSESSMENT AND PLAN: This is a 69-year-old male with numerous medical problems as dictated above. I was able to remove the Peters from the G-tube site and placed a 22-Mongolian balloon-type G-tube and inflated with 20 mL of water without any complication. Plan to flush the G-tube with contrast and get a KUB to document tip of tube location in the stomach and we will start tube feeding after that is confirmed. I want to thank, Dr. Perkins, for this kind referral. Pro Giovanni Porras DR: Reba JOB#: [id number] CC: Jeremiah Perkins M.D.
[2019-10-29] VITALS: BP 146/78
[2019-10-29 04:00] VITALS: BP 122/85
[2019-10-29 05:09] LABS: EOSINOPHILS % (AUTO) 5.6 % (0.0-3.0); HEMATOCRIT 32.4 % (42.0-52.0); HEMOGLOBIN 10.8 G/DL (14.2-18.0); LYMPHOCYTES % (AUTO) 15.9 % (20.0-45.0); MEAN CORPUSCULAR VOLUME 88 FL (80-99); MONOCYTES % (AUTO) 10.2 % (1.0-10.0); NEUTROPHILS % (AUTO) 67.3 % (45.0-75.0); PLATELET COUNT 466 K/UL (150-450); RED BLOOD COUNT 3.66 M/UL (4.70-6.10); RED CELL DISTRIBUTION WIDTH 13.8 % (11.6-14.8); WHITE BLOOD COUNT 15.9 K/UL (4.8-10.8)
[2019-10-29] MEDS: Sucralfate 1gm tab GT SCH ×3 (05:19→17:04)
[2019-10-29] MEDS: HydrALAZINE 50mg tab GT SCH ×3 (05:20→21:49)
[2019-10-29 05:26] LABS: ALANINE AMINOTRANSFERASE 44 U/L (12-78); ALBUMIN 2.1 G/DL (3.4-5.0); ALBUMIN/GLOBULIN RATIO 0.5 (1.0-2.7); ALKALINE PHOSPHATASE 64 U/L (46-116); ANION GAP 6 mmol/L (5-15); ASPARTATE AMINO TRANSFERASE 30 U/L (15-37); BILIRUBIN,TOTAL 0.4 MG/DL (0.2-1.0); BLOOD UREA NITROGEN 11 mg/dL (7-18); CALCIUM 8.5 MG/DL (8.5-10.1); CARBON DIOXIDE 31 MMOL/L (21-32); CHLORIDE 112 MMOL/L (98-107); CREATININE 1.1 MG/DL (0.55-1.30); POTASSIUM 3.3 MMOL/L (3.5-5.1); SODIUM 149 MMOL/L (136-145)
[2019-10-29] MEDS: NovoLOG Insulin Flexpen SUBQ SCH ×4 (06:30→21:00)
[2019-10-29 08:00] VITALS: BP 122/85
--- NOTE | 2019-10-29 09:02 | Pulmonology Progress Note ---
Assessment/Plan Assessment/Plan IMPRESSION Respiratory failure trach possible UTI possible sepsis urinary retention functional Quad CVA sepsis BCX+ PLAN respiratory care as is suction as needed trach care and off vent as able oxygen IV antibiotics noted ID reviewed urology followup aspiration precautions dc planning off load position change impression, plan, and exam edited and reviewed in detail care discussed with RN Subjective ROS Limited/Unobtainable: Yes Constitutional: Denies: fever Allergies: Coded Allergies: No Known Allergies (Unverified , 02/11/13) All Systems: reviewed and negative except above Subjective events noted wbc near baseline antibiotics noted respiratory noted on trach collar and off vent nursing notes reviewed Objective Last 24 Hour Vital Signs Date Time Temp Pulse Resp B/P (MAP) Pulse Ox O2 Delivery O2 Flow Rate FiO2 10/29/19 05:20 122/85 10/29/19 05:20 122/85 10/29/19 04:00 97.9 79 20 122/85 (97) 96 10/29/19 01:25 97 T-Piece 8.0 30 10/29/19 00:03 146/78 10/29/19 00:00 98.1 85 22 146/78 (100) 96 10/28/19 21:17 138/62 10/28/19 21:16 92 138/62 10/28/19 21:00 T-piece 9.0 10/28/19 20:00 98.2 92 20 138/62 (87) 95 10/28/19 19:25 91 20 96 T-Piece 8.0 30 10/28/19 19:25 96 T-Piece 8.0 30 10/28/19 17:10 161/82 10/28/19 17:09 82 161/82 10/28/19 16:00 98.2 82 20 161/82 (108) 97 10/28/19 12:52 96 T-Piece 8.0 30 10/28/19 12:00 98.6 90 17 137/68 (91) 96 10/28/19 09:35 136/64 Intake and Output 10/28/19 10/29/19 19:00 07:00 Intake Total 150 ml 830 ml Output Total 1400 ml Balance 150 ml -570 ml Intake Free Water 500 ml Tube Feeding 150 ml 330 ml Output Urine Total 1400 ml # Voids 1 Objective WDWN NAD reduced breath sounds bilaterally without rhonchi or wheeze trach in place [id number] without MRG NABS nontender no HSM; GT no CCE poor ROM and LOC krishnan reviewed and edited General Appearance: no acute distress HEENT: status post trach Abdomen: soft, non tender, other - GT Genitourinary: other - Krishnan catheter Extremities: no edema Neurologic/Psychiatric: aphasia Laboratory Tests 10/29/19 04:00: White Blood Count 15.9H, Red Blood Count 3.66L, Hemoglobin 10.8L, Hematocrit 32.4L, Mean Corpuscular Volume 88, Mean Corpuscular Hemoglobin 29.5, Mean Corpuscular Hemoglobin Concent 33.3, Red Cell Distribution Width 13.8, Platelet Count 466H, Mean Platelet Volume 8.9, Neutrophils (%) (Auto) 67.3, Lymphocytes ( %) (Auto) 15.9L, Monocytes (%) (Auto) 10.2H, Eosinophils (%) (Auto) 5.6H, Basophils (%) (Auto) 1.0, Sodium Level 149H, Potassium Level 3.3L, Chloride Level 112H, Carbon Dioxide Level 31, Anion Gap 6, Blood Urea Nitrogen 11, Creatinine 1.1, Estimat Glomerular Filtration Rate > 60, Glucose Level 105, Calcium Level 8.5, Total Bilirubin 0.4, Aspartate Amino Transf (AST/SGOT) 30, Alanine Aminotransferase (ALT/SGPT) 44, Alkaline Phosphatase 64, Total Protein 6.3L, Albumin 2.1L, Globulin 4.2, Albumin/Globulin Ratio 0.5L Current Medications Medications (Trade) Dose Ordered Sig/Magda Route PRN Reason Start Time Stop Time Status Last Admin Dose Admin Acetaminophen (Tylenol) 650 mg Q4H PRN GT For Pain/FEVER 10/19/19 12:00 11/18/19 11:59 10/22/19 05:18 Amlodipine Besylate (Norvasc) 5 mg BID GT 10/19/19 18:00 11/18/19 17:59 10/28/19 17:09 Ascorbic Acid (Vitamin C) 500 mg DAILY GT 10/19/19 13:30 11/18/19 13:29 10/27/19 10:00 Bisacodyl (Dulcolax) 10 mg DAILY RECTAL 10/19/19 13:30 01/17/20 13:29 10/26/19 11:00 Bisacodyl (Dulcolax) 10 mg DAILYPRN PRN RECTAL Constipation 10/21/19 09:45 01/19/20 09:44 Calcium Carbonate (Tums) 500 mg DAILY GT 10/20/19 09:00 01/18/20 08:59 10/27/19 10:00 Clonidine HCl (Catapres TTS-1) 1 patch QWEEK TDERMAL 10/28/19 09:00 01/26/20 08:59 10/28/19 09:35 Clonidine HCl (Catapres Tab) 0.1 mg Q6HR GT 10/19/19 13:30 01/17/20 13:29 10/29/19 05:20 Dextrose (Dextrose 50%) 25 ml Q30M PRN IV Hypoglycemia 10/19/19 12:00 01/17/20 11:59 Dextrose (Dextrose 50%) 50 ml Q30M PRN IV Hypoglycemia 10/19/19 12:00 01/17/20 11:59 Docusate Sodium (Colace) 100 mg DAILY NG 10/26/19 09:00 11/25/19 08:59 Doxazosin Mesylate (Cardura) 2 mg BEDTIME GT 10/19/19 21:00 11/18/19 20:59 10/28/19 21:17 Finasteride (Proscar) 5 mg DAILY ORAL 10/20/19 09:00 01/18/20 08:59 10/27/19 10:00 Heparin Sodium (Porcine) (Heparin 5000 units/ml) 5,000 units EVERY 12 HOURS SUBQ 10/19/19 21:00 12/03/19 20:59 10/28/19 21:18 Hydralazine HCl (Apresoline) 50 mg EVERY 8 HOURS GT 10/19/19 14:00 01/17/20 13:59 10/29/19 05:20 Insulin Aspart (NovoLOG) BEFORE MEALS AND HS SUBQ 10/19/19 16:30 01/17/20 16:29 10/27/19 06:28 Insulin Detemir (Levemir) 35 units BID SUBQ 10/19/19 18:00 01/17/20 17:59 10/28/19 18:09 Lactulose (Cephulac) 20 gm THREE TIMES A DAY ORAL 10/21/19 09:45 11/20/19 09:44 10/28/19 17:09 Magnesium Hydroxide (Mom) 30 ml DAILY PRN GT Constipation 10/19/19 12:00 11/18/19 11:59 Metoprolol Tartrate (Lopressor) 25 mg EVERY 12 HOURS GT 10/19/19 21:00 01/17/20 20:59 10/28/19 21:16 Polyethylene Glycol (Miralax) 17 gm DAILYPRN PRN ORAL Constipation 10/21/19 09:45 11/20/19 09:44 Saccharomyces Boulardii (Florastor) 250 mg TWICE A DAY GT 10/19/19 18:00 01/17/20 17:59 10/28/19 17:09 Sitagliptin Phosphate (Januvia) 100 mg DAILY GT 10/20/19 09:00 11/19/19 08:59 10/27/19 10:00 Sucralfate (Carafate) 1 gm Q6HR GT 10/19/19 13:30 01/17/20 13:29 10/29/19 05:19 Tamsulosin HCl (Flomax) 0.4 mg DAILY ORAL 10/20/19 09:00 11/19/19 08:59 10/27/19 10:00 Silver Diaz MD October 29, 2019 09:02
[2019-10-29] MEDS: Tums 500mg GT SCH (09:06)
[2019-10-29] MEDS: Ascorbic Acid 500mg tab GT SCH (09:07)
[2019-10-29] MEDS: Lactulose 20gm/30ml UDC ORAL SCH ×3 (09:07→17:05)
[2019-10-29] MEDS: Tamsulosin 0.4mg cap ORAL SCH (09:07)
[2019-10-29] MEDS: Docusate 100mg/10ml Liq NG SCH (09:07)
[2019-10-29] MEDS: Levemir Flexpen SUBQ SCH ×2 (09:08→17:32)
[2019-10-29] MEDS: Heparin 5000 units/ml inj SUBQ SCH ×2 (09:08→21:53)
--- NOTE | 2019-10-29 10:57 | Infectious Diseases Prog Note ---
"Assessment/Plan Assessment/Plan antibiotics : none A 1. klebsiella | enterococcus sepsis 2. e.coli | providencia UTI 3. COVID 19 test negative [id number] 4. diabetes mellitus 5. hypertension 6. CVA P 1. observe off antibiotics 2. will follow up cultures Subjective ROS Limited/Unobtainable: Yes Allergies: Coded Allergies: No Known Allergies (Unverified , 02/11/13) Objective Vital Signs Last 24 Hour Vital Signs Date Time Temp Pulse Resp B/P (MAP) Pulse Ox O2 Delivery O2 Flow Rate FiO2 10/29/19 09:06 79 122/85 10/29/19 09:06 79 122/85 10/29/19 09:00 T-piece 9.0 10/29/19 08:46 88 20 97 T-Piece 8.0 30 10/29/19 08:00 97.9 79 19 122/85 (97) 99 10/29/19 05:20 122/85 10/29/19 05:20 122/85 10/29/19 04:00 97.9 79 20 122/85 (97) 96 10/29/19 01:25 97 T-Piece 8.0 30 10/29/19 00:03 146/78 10/29/19 00:00 98.1 85 22 146/78 (100) 96 10/28/19 21:17 138/62 10/28/19 21:16 92 138/62 10/28/19 21:00 T-piece 9.0 10/28/19 20:00 98.2 92 20 138/62 (87) 95 10/28/19 19:25 91 20 96 T-Piece 8.0 30 10/28/19 19:25 96 T-Piece 8.0 30 10/28/19 17:10 161/82 10/28/19 17:09 82 161/82 10/28/19 16:00 98.2 82 20 161/82 (108) 97 10/28/19 12:52 96 T-Piece 8.0 30 10/28/19 12:00 98.6 90 17 137/68 (91) 96 Height (Feet): 5 Height (Inches): 10.00 Weight (Pounds): 189 HEENT: status post trach Respiratory/Chest: lungs clear Cardiovascular: normal rate, regular rhythm, no gallop/murmur Abdomen: soft, non tender, other - GT Extremities: no edema Laboratory Tests Test 10/29/19 04:00 White Blood Count 15.9 K/UL (4.8-10.8) H Red Blood Count 3.66 M/UL (4.70-6.10) L Hemoglobin 10.8 G/DL (14.2-18.0) L Hematocrit 32.4 % (42.0-52.0) L Mean Corpuscular Volume 88 FL (80-99) Mean Corpuscular Hemoglobin 29.5 PG (27.0-31.0) Mean Corpuscular Hemoglobin Concent 33.3 G/DL (32.0-36.0) Red Cell Distribution Width 13.8 % (11.6-14.8) Platelet Count 466 K/UL (150-450) H Mean Platelet Volume 8.9 FL (6.5-10.1) Neutrophils (%) (Auto) 67.3 % (45.0-75.0) Lymphocytes (%) (Auto) 15.9 % (20.0-45.0) L Monocytes (%) (Auto) 10.2 % (1.0-10.0) H Eosinophils (%) (Auto) 5.6 % (0.0-3.0) H Basophils (%) (Auto) 1.0 % (0.0-2.0) Sodium Level 149 MMOL/L (136-145) H Potassium Level 3.3 MMOL/L (3.5-5.1) L Chloride Level 112 MMOL/L (98-107) H Carbon Dioxide Level 31 MMOL/L (21-32) Anion Gap 6 mmol/L (5-15) Blood Urea Nitrogen 11 mg/dL (7-18) Creatinine 1.1 MG/DL (0.55-1.30) Estimat Glomerular Filtration Rate > 60 mL/min (>60) Glucose Level 105 MG/DL (74-106) Calcium Level 8.5 MG/DL (8.5-10.1) Total Bilirubin 0.4 MG/DL (0.2-1.0) Aspartate Amino Transf (AST/SGOT) 30 U/L (15-37) Alanine Aminotransferase (ALT/SGPT) 44 U/L (12-78) Alkaline Phosphatase 64 U/L (46-116) Total Protein 6.3 G/DL (6.4-8.2) L Albumin 2.1 G/DL (3.4-5.0) L Globulin 4.2 g/dL Albumin/Globulin Ratio 0.5 (1.0-2.7) L Current Medications Medications (Trade) Dose Ordered Sig/Magda Route PRN Reason Start Time Stop Time Status Last Admin Dose Admin Acetaminophen (Tylenol) 650 mg Q4H PRN GT For Pain/FEVER 10/19/19 12:00 11/18/19 11:59 10/22/19 05:18 Amlodipine Besylate (Norvasc) 5 mg BID GT 10/19/19 18:00 11/18/19 17:59 10/29/19 09:06 Ascorbic Acid (Vitamin C) 500 mg DAILY GT 10/19/19 13:30 11/18/19 13:29 10/29/19 09:07 Bisacodyl (Dulcolax) 10 mg DAILY RECTAL 10/19/19 13:30 01/17/20 13:29 10/29/19 09:07 Bisacodyl (Dulcolax) 10 mg DAILYPRN PRN RECTAL Constipation 10/21/19 09:45 01/19/20 09:44 Calcium Carbonate (Tums) 500 mg DAILY GT 10/20/19 09:00 01/18/20 08:59 10/29/19 09:06 Clonidine HCl (Catapres TTS-1) 1 patch QWEEK TDERMAL 10/28/19 09:00 01/26/20 08:59 10/28/19 09:35 Clonidine HCl (Catapres Tab) 0.1 mg Q6HR GT 10/19/19 13:30 01/17/20 13:29 10/29/19 05:20 Dextrose (Dextrose 50%) 25 ml Q30M PRN IV Hypoglycemia 10/19/19 12:00 01/17/20 11:59 Dextrose (Dextrose 50%) 50 ml Q30M PRN IV Hypoglycemia 10/19/19 12:00 01/17/20 11:59 Docusate Sodium (Colace) 100 mg DAILY NG 10/26/19 09:00 11/25/19 08:59 10/29/19 09:07 Doxazosin Mesylate (Cardura) 2 mg BEDTIME GT 10/19/19 21:00 11/18/19 20:59 10/28/19 21:17 Finasteride (Proscar) 5 mg DAILY ORAL 10/20/19 09:00 01/18/20 08:59 10/29/19 09:07 Heparin Sodium (Porcine) (Heparin 5000 units/ml) 5,000 units EVERY 12 HOURS SUBQ 10/19/19 21:00 12/03/19 20:59 10/29/19 09:08 Hydralazine HCl (Apresoline) 50 mg EVERY 8 HOURS GT 10/19/19 14:00 01/17/20 13:59 10/29/19 05:20 Insulin Aspart (NovoLOG) BEFORE MEALS AND HS SUBQ 10/19/19 16:30 01/17/20 16:29 10/27/19 06:28 Insulin Detemir (Levemir) 35 units BID SUBQ 10/19/19 18:00 01/17/20 17:59 10/29/19 09:08 Lactulose (Cephulac) 20 gm THREE TIMES A DAY ORAL 10/21/19 09:45 11/20/19 09:44 10/29/19 09:07 Magnesium Hydroxide (Mom) 30 ml DAILY PRN GT Constipation 10/19/19 12:00 11/18/19 11:59 Metoprolol Tartrate (Lopressor) 25 mg EVERY 12 HOURS GT 10/19/19 21:00 01/17/20 20:59 10/29/19 09:06 Polyethylene Glycol (Miralax) 17 gm DAILYPRN PRN ORAL Constipation 10/21/19 09:45 11/20/19 09:44 Saccharomyces Boulardii (Florastor) 250 mg TWICE A DAY GT 10/19/19 18:00 01/17/20 17:59 10/29/19 09:06 Sitagliptin Phosphate (Januvia) 100 mg DAILY GT 10/20/19 09:00 11/19/19 08:59 10/29/19 09:06 Sucralfate (Carafate) 1 gm Q6HR GT 10/19/19 13:30 01/17/20 13:29 10/29/19 05:19 Tamsulosin HCl (Flomax) 0.4 mg DAILY ORAL 10/20/19 09:00 11/19/19 08:59 10/29/19 09:07 Jesica Alegria MD October 29, 2019 10:57"
--- NOTE | 2019-10-29 11:13 | General Progress Note ---
Assessment/Plan Status: stable, progressing Assessment/Plan: 1. CVA. 2. Functional quadriplegia. 3. Diabetes. 4. Hypertension. 5. Chronic leukocytosis. 6. BPH. 7. Urinary retention. 8. Chronic respiratory failure. 9. History of dysphagia with a G-tube. 10. History of respiratory failure with trach GT has been changed and functioning GTF running GT care will fu Subjective ROS Limited/Unobtainable: No Allergies: Coded Allergies: No Known Allergies (Unverified , 02/11/13) Objective Last 24 Hour Vital Signs Date Time Temp Pulse Resp B/P (MAP) Pulse Ox O2 Delivery O2 Flow Rate FiO2 10/29/19 09:06 79 122/85 10/29/19 09:06 79 122/85 10/29/19 09:00 T-piece 9.0 10/29/19 08:46 88 20 97 T-Piece 8.0 30 10/29/19 08:00 97.9 79 19 122/85 (97) 99 10/29/19 05:20 122/85 10/29/19 05:20 122/85 10/29/19 04:00 97.9 79 20 122/85 (97) 96 10/29/19 01:25 97 T-Piece 8.0 30 10/29/19 00:03 146/78 10/29/19 00:00 98.1 85 22 146/78 (100) 96 10/28/19 21:17 138/62 10/28/19 21:16 92 138/62 10/28/19 21:00 T-piece 9.0 10/28/19 20:00 98.2 92 20 138/62 (87) 95 10/28/19 19:25 91 20 96 T-Piece 8.0 30 10/28/19 19:25 96 T-Piece 8.0 30 10/28/19 17:10 161/82 10/28/19 17:09 82 161/82 10/28/19 16:00 98.2 82 20 161/82 (108) 97 10/28/19 12:52 96 T-Piece 8.0 30 10/28/19 12:00 98.6 90 17 137/68 (91) 96 Intake and Output 10/28/19 10/29/19 19:00 07:00 Intake Total 150 ml 830 ml Output Total 1400 ml Balance 150 ml -570 ml Intake Free Water 500 ml Tube Feeding 150 ml 330 ml Output Urine Total 1400 ml # Voids 1 Laboratory Tests 10/29/19 04:00: White Blood Count 15.9H, Red Blood Count 3.66L, Hemoglobin 10.8L, Hematocrit 32.4L, Mean Corpuscular Volume 88, Mean Corpuscular Hemoglobin 29.5, Mean Corpuscular Hemoglobin Concent 33.3, Red Cell Distribution Width 13.8, Platelet Count 466H, Mean Platelet Volume 8.9, Neutrophils (%) (Auto) 67.3, Lymphocytes ( %) (Auto) 15.9L, Monocytes (%) (Auto) 10.2H, Eosinophils (%) (Auto) 5.6H, Basophils (%) (Auto) 1.0, Sodium Level 149H, Potassium Level 3.3L, Chloride Level 112H, Carbon Dioxide Level 31, Anion Gap 6, Blood Urea Nitrogen 11, Creatinine 1.1, Estimat Glomerular Filtration Rate > 60, Glucose Level 105, Calcium Level 8.5, Total Bilirubin 0.4, Aspartate Amino Transf (AST/SGOT) 30, Alanine Aminotransferase (ALT/SGPT) 44, Alkaline Phosphatase 64, Total Protein 6.3L, Albumin 2.1L, Globulin 4.2, Albumin/Globulin Ratio 0.5L Height (Feet): 5 Height (Inches): 10.00 Weight (Pounds): 189 General Appearance: no apparent distress EENT: normal ENT inspection Neck: supple Cardiovascular: normal rate Respiratory/Chest: decreased breath sounds Abdomen: normal bowel sounds, non tender, soft Extremities: non-tender Pro Porras MD October 29, 2019 11:13
[2019-10-29 12:00] VITALS: BP 125/75
[2019-10-29 16:00] VITALS: BP 126/72
--- NOTE | 2019-10-29 16:18 | Surgery Progress Note ---
Surgery Progress Note Subjective Additional Comments no acute events labs noted exam stable comfortable Objective Last 24 Hour Vital Signs Date Time Temp Pulse Resp B/P (MAP) Pulse Ox O2 Delivery O2 Flow Rate FiO2 10/29/19 16:00 98.8 80 20 126/72 (90) 98 10/29/19 15:16 125/80 10/29/19 13:13 96 T-Piece 8.0 30 10/29/19 12:05 125/80 10/29/19 12:00 97.3 69 16 125/75 (92) 99 10/29/19 09:06 79 122/85 10/29/19 09:06 79 122/85 10/29/19 09:00 T-piece 9.0 10/29/19 08:46 88 20 97 T-Piece 8.0 30 10/29/19 08:00 97.9 79 19 122/85 (97) 99 10/29/19 05:20 122/85 10/29/19 05:20 122/85 10/29/19 04:00 97.9 79 20 122/85 (97) 96 10/29/19 01:25 97 T-Piece 8.0 30 10/29/19 00:03 146/78 10/29/19 00:00 98.1 85 22 146/78 (100) 96 10/28/19 21:17 138/62 10/28/19 21:16 92 138/62 10/28/19 21:00 T-piece 9.0 10/28/19 20:00 98.2 92 20 138/62 (87) 95 10/28/19 19:25 91 20 96 T-Piece 8.0 30 10/28/19 19:25 96 T-Piece 8.0 30 10/28/19 17:10 161/82 10/28/19 17:09 82 161/82 I&O Intake and Output 10/28/19 10/29/19 19:00 07:00 Intake Total 150 ml 830 ml Output Total 1400 ml Balance 150 ml -570 ml Intake Free Water 500 ml Tube Feeding 150 ml 330 ml Output Urine Total 1400 ml # Voids 1 Dressing: other Wound: other Cardiovascular: RSR Respiratory: decreased breath sounds Abdomen: soft, non-tender, present bowel sounds Extremities: no cyanosis Laboratory Tests Test 10/29/19 04:00 White Blood Count 15.9 K/UL (4.8-10.8) H Red Blood Count 3.66 M/UL (4.70-6.10) L Hemoglobin 10.8 G/DL (14.2-18.0) L Hematocrit 32.4 % (42.0-52.0) L Mean Corpuscular Volume 88 FL (80-99) Mean Corpuscular Hemoglobin 29.5 PG (27.0-31.0) Mean Corpuscular Hemoglobin Concent 33.3 G/DL (32.0-36.0) Red Cell Distribution Width 13.8 % (11.6-14.8) Platelet Count 466 K/UL (150-450) H Mean Platelet Volume 8.9 FL (6.5-10.1) Neutrophils (%) (Auto) 67.3 % (45.0-75.0) Lymphocytes (%) (Auto) 15.9 % (20.0-45.0) L Monocytes (%) (Auto) 10.2 % (1.0-10.0) H Eosinophils (%) (Auto) 5.6 % (0.0-3.0) H Basophils (%) (Auto) 1.0 % (0.0-2.0) Sodium Level 149 MMOL/L (136-145) H Potassium Level 3.3 MMOL/L (3.5-5.1) L Chloride Level 112 MMOL/L (98-107) H Carbon Dioxide Level 31 MMOL/L (21-32) Anion Gap 6 mmol/L (5-15) Blood Urea Nitrogen 11 mg/dL (7-18) Creatinine 1.1 MG/DL (0.55-1.30) Estimat Glomerular Filtration Rate > 60 mL/min (>60) Glucose Level 105 MG/DL (74-106) Calcium Level 8.5 MG/DL (8.5-10.1) Total Bilirubin 0.4 MG/DL (0.2-1.0) Aspartate Amino Transf (AST/SGOT) 30 U/L (15-37) Alanine Aminotransferase (ALT/SGPT) 44 U/L (12-78) Alkaline Phosphatase 64 U/L (46-116) Total Protein 6.3 G/DL (6.4-8.2) L Albumin 2.1 G/DL (3.4-5.0) L Globulin 4.2 g/dL Albumin/Globulin Ratio 0.5 (1.0-2.7) L Plan Problems: (1) Deep tissue injury Assessment & Plan: sacral DTI noted on admission prior historical scar noted from healed wound wash daily with NS apply foam dressings turn q2h off load pressure pillow under legs will follow with recs thank you (2) Krishnan catheter problem Assessment & Plan: resolved urology place new krishnan functional (3) Failure to thrive Assessment & Plan: DAILY ESTIMATED NEEDS: Needs based on DTI, DM 78kg adj 22-27 kcals/kg 8222-1121 total kcals 1.25-1.5 g protein/kg 98-117 g total protein 25-30 mL/kg 1798-6210 total fluid mLs NUTRITION DIAGNOSIS: Swallowing difficulty R/T respiratory status as evidenced by pt vent dep via T-collar w/ PEG feedings CURRENT TF:Glucerna 1.5@ 30ml/hr x 24 hrs ENTERAL NUTRITION RECOMMENDATIONS: Glucerna 1.5 @ 50ml/hr x 24 hrs to provide 1200ml, 1800 kcal, 99g pro. 911ml free H2O - Increase goal rate to 50ml/hr x 24 hrs to meet 100% est kcal/prot needs - HOB over 30 degrees - H20 flush of 180ml q 4 hrs ADDITIONAL RECOMMENDATIONS: - Change bed scale to woodland bed for accurate CBW - When TF at goal is tolerated, rec KURTIS in 4oz H2O BID for wound care, continue Vit C - Monitor lytes, replete as needed (4) Leukocytosis Assessment & Plan: uti abx given improved labs improved (5) Fecal impaction Assessment & Plan: Abundant inspissated stool distending the rectum. Proximally, there is gas throughout the colon. Suspected fecal impaction. No clear free air on exam that includes the dome of the right hemidiaphragm. Right femoral vascular catheter. Krishnan catheter. Lumbar dextrocurvature. Chronic height loss to the leftward L3 level. Suture material again noted. IMPRESSION: Suspected fecal impaction. will start bowel regimen and enema may need manual disimpaction will follow with recs thank you Findings: Gastrostomy tube noted. There is a right transfemoral central venous catheter. Krishnan catheter is noted. Surgical material noted in the pelvis. Bowel gas pattern is nonspecific but not overtly obstructive. Dense stool in the rectum. Decreased. Interstitial and airspace disease noted in the bilateral lower lungs. There are degenerative changes in the spine. Degenerative versus chronic post traumatic changes of the left femur. IMPRESSION: Nonspecific but not overtly obstructive bowel gas pattern. Interval decrease in dense stool in the rectum. Indwelling gastrostomy tube. Interstitial and airspace disease noted in the bilateral lower lungs. Additional findings as above. Raheem Kolb October 29, 2019 16:18
[2019-10-29 20:00] VITALS: BP 109/56
[2019-10-29] MEDS: Doxazosin 1mg Tab GT SCH (21:00)
--- NOTE | 2019-10-29 22:29 | Discharge Summary ---
DATE OF ADMISSION: 10/19/2019 DATE OF DISCHARGE: 10/29/2019 ADMISSION DIAGNOSES: 1. Sepsis. 2. UTI. 3. History of BPH. 4. Toxic metabolic encephalopathy. 5. Encephalopathy. 6. Diabetes. 7. . 8. Dysphagia. 9. Chronic leukocytosis. DISCHARGE DIAGNOSES: 1. Sepsis. 2. UTI. 3. History of BPH. 4. Toxic metabolic encephalopathy. 5. Encephalopathy. 6. Diabetes. 7. . 8. Dysphagia. 9. Chronic leukocytosis. HOSPITAL COURSE: The patient is an unfortunate male with history of chronic respiratory failure. He was admitted with complaints of sepsis secondary to urinary tract infection. He was pancultured. He did have positive blood cultures as well as urine cultures. ID and Pulmonary consultations were obtained. The patient responded well to IV antibiotic therapy. He had two COVID tests that were negative. On discharge, he was stable. He completed all his antibiotics while in-house and he was stable for discharge. He will be followed at the [facility] facility in one to two days. DISCHARGE MEDICATIONS: Please see discharge list for discharge medications. DIET: G-tube feedings. ACTIVITIES: Ad-staci. FOLLOWUP: The patient to followup in one to two days at [facility] facility. Jeremiah Perkins M.D. DR: Fidelina JOB#: [id number] CC:
[2019-10-30] VITALS: BP 101/55
[2019-10-30] MEDS: Sucralfate 1gm tab GT SCH ×3 (00:37→12:18)
[2019-10-30 04:30] VITALS: BP 119/65
[2019-10-30] MEDS: HydrALAZINE 50mg tab GT SCH (05:15)
[2019-10-30] MEDS: NovoLOG Insulin Flexpen SUBQ SCH ×3 (05:16→16:30)
[2019-10-30 08:00] VITALS: BP 119/65
[2019-10-30] MEDS: Docusate 100mg/10ml Liq NG SCH (08:31)
[2019-10-30] MEDS: Tamsulosin 0.4mg cap ORAL SCH (08:31)
[2019-10-30] MEDS: Lactulose 20gm/30ml UDC ORAL SCH (08:31)
[2019-10-30] MEDS: Tums 500mg GT SCH (08:31)
[2019-10-30] MEDS: Ascorbic Acid 500mg tab GT SCH (08:31)
[2019-10-30] MEDS: Heparin 5000 units/ml inj SUBQ SCH (08:36)
[2019-10-30] MEDS: Levemir Flexpen SUBQ SCH (08:50)
--- NOTE | 2019-10-30 09:07 | General Progress Note ---
Assessment/Plan Status: stable, progressing Assessment/Plan: 1. CVA. 2. Functional quadriplegia. 3. Diabetes. 4. Hypertension. 5. Chronic leukocytosis. 6. BPH. 7. Urinary retention. 8. Chronic respiratory failure. 9. History of dysphagia with a G-tube. 10. History of respiratory failure with trach GT has been changed and functioning GTF running GT care will fu Subjective ROS Limited/Unobtainable: No Allergies: Coded Allergies: No Known Allergies (Unverified , 02/11/13) Objective Last 24 Hour Vital Signs Date Time Temp Pulse Resp B/P (MAP) Pulse Ox O2 Delivery O2 Flow Rate FiO2 10/30/19 08:31 68 119/65 10/30/19 08:30 68 119/65 10/30/19 08:00 97.9 68 18 119/65 (83) 98 10/30/19 05:15 101/55 10/30/19 05:15 101/55 10/30/19 04:30 98.4 68 18 119/65 (83) 95 10/30/19 01:03 96 T-Piece 8.0 30 10/30/19 00:00 98.1 59 17 101/55 (70) 95 10/30/19 00:00 101/55 10/29/19 21:49 109/56 10/29/19 21:00 94 109/56 10/29/19 20:28 T-piece 9.0 10/29/19 20:00 97.9 94 15 109/56 (73) 94 10/29/19 19:43 97 T-Piece 8.0 30 10/29/19 19:43 91 20 97 T-Piece 8.0 30 10/29/19 17:05 80 126/72 10/29/19 17:04 126/72 10/29/19 16:00 98.8 80 20 126/72 (90) 98 10/29/19 15:16 125/80 10/29/19 13:13 96 T-Piece 8.0 30 10/29/19 12:05 125/80 10/29/19 12:00 97.3 69 16 125/75 (92) 99 Intake and Output 10/29/19 10/30/19 19:00 07:00 Intake Total 760 ml 360 ml Output Total 450 ml Balance 760 ml -90 ml Intake Free Water 400 ml Tube Feeding 360 ml 360 ml Output Urine Total 450 ml # Voids 1 # Bowel Movements 1 Height (Feet): 5 Height (Inches): 10.00 Weight (Pounds): 176 General Appearance: no apparent distress EENT: normal ENT inspection Neck: supple Cardiovascular: normal rate Respiratory/Chest: decreased breath sounds Abdomen: normal bowel sounds, non tender, soft Extremities: non-tender Pro Porras MD October 30, 2019 09:07
--- NOTE | 2019-10-30 09:36 | Pulmonology Progress Note ---
Assessment/Plan Assessment/Plan IMPRESSION Respiratory failure trach possible UTI possible sepsis urinary retention functional Quad CVA sepsis BCX+ PLAN respiratory suarez same suction as needed trach care and off vent as able oxygen IV antibiotics noted ID reviewed aspiration precautions dc planning off load position change nutrition reviewed impression, plan, and exam edited and reviewed in detail care discussed with RN Subjective ROS Limited/Unobtainable: Yes Constitutional: Denies: fever Allergies: Coded Allergies: No Known Allergies (Unverified , 02/11/13) All Systems: reviewed and negative except above Subjective events noted minimally congested antibiotics noted respiratory noted and chart reviewed on trach collar and off vent nursing notes reviewed Objective Last 24 Hour Vital Signs Date Time Temp Pulse Resp B/P (MAP) Pulse Ox O2 Delivery O2 Flow Rate FiO2 10/30/19 08:31 68 119/65 10/30/19 08:30 68 119/65 10/30/19 08:00 97.9 68 18 119/65 (83) 98 10/30/19 05:15 101/55 10/30/19 05:15 101/55 10/30/19 04:30 98.4 68 18 119/65 (83) 95 10/30/19 01:03 96 T-Piece 8.0 30 10/30/19 00:00 98.1 59 17 101/55 (70) 95 10/30/19 00:00 101/55 10/29/19 21:49 109/56 10/29/19 21:00 94 109/56 10/29/19 20:28 T-piece 9.0 10/29/19 20:00 97.9 94 15 109/56 (73) 94 10/29/19 19:43 97 T-Piece 8.0 30 10/29/19 19:43 91 20 97 T-Piece 8.0 30 10/29/19 17:05 80 126/72 10/29/19 17:04 126/72 10/29/19 16:00 98.8 80 20 126/72 (90) 98 10/29/19 15:16 125/80 10/29/19 13:13 96 T-Piece 8.0 30 10/29/19 12:05 125/80 10/29/19 12:00 97.3 69 16 125/75 (92) 99 Intake and Output 10/29/19 10/30/19 19:00 07:00 Intake Total 760 ml 360 ml Output Total 450 ml Balance 760 ml -90 ml Intake Free Water 400 ml Tube Feeding 360 ml 360 ml Output Urine Total 450 ml # Voids 1 # Bowel Movements 1 Objective WDWN NAD reduced breath sounds bilaterally without rhonchi or wheeze trach in place [id number] without MRG NABS nontender no HSM; GT no CCE poor ROM and LOC krishnan reviewed and edited General Appearance: no acute distress HEENT: status post trach Abdomen: soft, non tender, other - GT Genitourinary: other - Krishnan catheter Extremities: no edema Neurologic/Psychiatric: aphasia Current Medications Medications (Trade) Dose Ordered Sig/Magda Route PRN Reason Start Time Stop Time Status Last Admin Dose Admin Acetaminophen (Tylenol) 650 mg Q4H PRN GT For Pain/FEVER 10/19/19 12:00 11/18/19 11:59 10/22/19 05:18 Amlodipine Besylate (Norvasc) 5 mg BID GT 10/19/19 18:00 11/18/19 17:59 10/30/19 08:31 Ascorbic Acid (Vitamin C) 500 mg DAILY GT 10/19/19 13:30 11/18/19 13:29 10/30/19 08:31 Bisacodyl (Dulcolax) 10 mg DAILY RECTAL 10/19/19 13:30 01/17/20 13:29 10/29/19 09:07 Bisacodyl (Dulcolax) 10 mg DAILYPRN PRN RECTAL Constipation 10/21/19 09:45 01/19/20 09:44 Calcium Carbonate (Tums) 500 mg DAILY GT 10/20/19 09:00 01/18/20 08:59 10/30/19 08:31 Clonidine HCl (Catapres TTS-1) 1 patch QWEEK TDERMAL 10/28/19 09:00 01/26/20 08:59 10/28/19 09:35 Clonidine HCl (Catapres Tab) 0.1 mg Q6HR GT 10/19/19 13:30 01/17/20 13:29 10/29/19 17:04 Dextrose (Dextrose 50%) 25 ml Q30M PRN IV Hypoglycemia 10/19/19 12:00 01/17/20 11:59 Dextrose (Dextrose 50%) 50 ml Q30M PRN IV Hypoglycemia 10/19/19 12:00 01/17/20 11:59 Docusate Sodium (Colace) 100 mg DAILY NG 10/26/19 09:00 11/25/19 08:59 10/29/19 09:07 Doxazosin Mesylate (Cardura) 2 mg BEDTIME GT 10/19/19 21:00 11/18/19 20:59 10/28/19 21:17 Finasteride (Proscar) 5 mg DAILY ORAL 10/20/19 09:00 01/18/20 08:59 10/30/19 08:31 Heparin Sodium (Porcine) (Heparin 5000 units/ml) 5,000 units EVERY 12 HOURS SUBQ 10/19/19 21:00 12/03/19 20:59 10/30/19 08:36 Hydralazine HCl (Apresoline) 50 mg EVERY 8 HOURS GT 10/19/19 14:00 01/17/20 13:59 10/29/19 15:16 Insulin Aspart (NovoLOG) BEFORE MEALS AND HS SUBQ 10/19/19 16:30 01/17/20 16:29 10/29/19 11:30 Insulin Detemir (Levemir) 35 units BID SUBQ 10/19/19 18:00 01/17/20 17:59 10/29/19 09:08 Lactulose (Cephulac) 20 gm THREE TIMES A DAY ORAL 10/21/19 09:45 11/20/19 09:44 10/29/19 17:05 Magnesium Hydroxide (Mom) 30 ml DAILY PRN GT Constipation 10/19/19 12:00 11/18/19 11:59 Metoprolol Tartrate (Lopressor) 25 mg EVERY 12 HOURS GT 10/19/19 21:00 01/17/20 20:59 10/30/19 08:30 Polyethylene Glycol (Miralax) 17 gm DAILYPRN PRN ORAL Constipation 10/21/19 09:45 11/20/19 09:44 Saccharomyces Boulardii (Florastor) 250 mg TWICE A DAY GT 10/19/19 18:00 01/17/20 17:59 10/30/19 08:30 Sitagliptin Phosphate (Januvia) 100 mg DAILY GT 10/20/19 09:00 11/19/19 08:59 10/30/19 08:30 Sucralfate (Carafate) 1 gm Q6HR GT 10/19/19 13:30 01/17/20 13:29 10/30/19 05:15 Tamsulosin HCl (Flomax) 0.4 mg DAILY ORAL 10/20/19 09:00 11/19/19 08:59 10/30/19 08:31 Silver Diaz MD October 30, 2019 09:36
--- NOTE | 2019-10-30 11:00 | Infectious Diseases Prog Note ---
"Assessment/Plan Assessment/Plan antibiotics : none A 1. klebsiella | enterococcus sepsis s/p rx 2. e.coli | providencia UTI 3. COVID 19 test negative [id number] 4. diabetes mellitus 5. hypertension 6. CVA P 1. observe off antibiotics 2. will follow up cultures Subjective ROS Limited/Unobtainable: Yes Allergies: Coded Allergies: No Known Allergies (Unverified , 02/11/13) Objective Vital Signs Last 24 Hour Vital Signs Date Time Temp Pulse Resp B/P (MAP) Pulse Ox O2 Delivery O2 Flow Rate FiO2 10/30/19 09:00 T-piece 9.0 10/30/19 08:31 68 119/65 10/30/19 08:30 68 119/65 10/30/19 08:00 97.9 68 18 119/65 (83) 98 10/30/19 05:15 101/55 10/30/19 05:15 101/55 10/30/19 04:30 98.4 68 18 119/65 (83) 95 10/30/19 01:03 96 T-Piece 8.0 30 10/30/19 00:00 98.1 59 17 101/55 (70) 95 10/30/19 00:00 101/55 10/29/19 21:49 109/56 10/29/19 21:00 94 109/56 10/29/19 20:28 T-piece 9.0 10/29/19 20:00 97.9 94 15 109/56 (73) 94 10/29/19 19:43 97 T-Piece 8.0 30 10/29/19 19:43 91 20 97 T-Piece 8.0 30 10/29/19 17:05 80 126/72 10/29/19 17:04 126/72 10/29/19 16:00 98.8 80 20 126/72 (90) 98 10/29/19 15:16 125/80 10/29/19 13:13 96 T-Piece 8.0 30 10/29/19 12:05 125/80 10/29/19 12:00 97.3 69 16 125/75 (92) 99 Height (Feet): 5 Height (Inches): 10.00 Weight (Pounds): 176 HEENT: status post trach Respiratory/Chest: lungs clear Cardiovascular: normal rate, regular rhythm, no gallop/murmur Abdomen: soft, non tender, other - GT Extremities: no edema Current Medications Medications (Trade) Dose Ordered Sig/Magad Route PRN Reason Start Time Stop Time Status Last Admin Dose Admin Acetaminophen (Tylenol) 650 mg Q4H PRN GT For Pain/FEVER 10/19/19 12:00 11/18/19 11:59 10/22/19 05:18 Amlodipine Besylate (Norvasc) 5 mg BID GT 10/19/19 18:00 11/18/19 17:59 10/30/19 08:31 Ascorbic Acid (Vitamin C) 500 mg DAILY GT 10/19/19 13:30 11/18/19 13:29 10/30/19 08:31 Bisacodyl (Dulcolax) 10 mg DAILYPRN PRN RECTAL Constipation 10/21/19 09:45 01/19/20 09:44 Calcium Carbonate (Tums) 500 mg DAILY GT 10/20/19 09:00 01/18/20 08:59 10/30/19 08:31 Clonidine HCl (Catapres TTS-1) 1 patch QWEEK TDERMAL 10/28/19 09:00 01/26/20 08:59 10/28/19 09:35 Clonidine HCl (Catapres Tab) 0.1 mg Q6HR GT 10/19/19 13:30 01/17/20 13:29 10/29/19 17:04 Dextrose (Dextrose 50%) 25 ml Q30M PRN IV Hypoglycemia 10/19/19 12:00 01/17/20 11:59 Dextrose (Dextrose 50%) 50 ml Q30M PRN IV Hypoglycemia 10/19/19 12:00 01/17/20 11:59 Doxazosin Mesylate (Cardura) 2 mg BEDTIME GT 10/19/19 21:00 11/18/19 20:59 10/28/19 21:17 Finasteride (Proscar) 5 mg DAILY ORAL 10/20/19 09:00 01/18/20 08:59 10/30/19 08:31 Heparin Sodium (Porcine) (Heparin 5000 units/ml) 5,000 units EVERY 12 HOURS SUBQ 10/19/19 21:00 12/03/19 20:59 10/30/19 08:36 Hydralazine HCl (Apresoline) 50 mg EVERY 8 HOURS GT 10/19/19 14:00 01/17/20 13:59 10/29/19 15:16 Insulin Aspart (NovoLOG) BEFORE MEALS AND HS SUBQ 10/19/19 16:30 01/17/20 16:29 10/29/19 11:30 Insulin Detemir (Levemir) 35 units BID SUBQ 10/19/19 18:00 01/17/20 17:59 10/29/19 09:08 Magnesium Hydroxide (Mom) 30 ml DAILY PRN GT Constipation 10/19/19 12:00 11/18/19 11:59 Metoprolol Tartrate (Lopressor) 25 mg EVERY 12 HOURS GT 10/19/19 21:00 01/17/20 20:59 10/30/19 08:30 Polyethylene Glycol (Miralax) 17 gm DAILYPRN PRN ORAL Constipation 10/21/19 09:45 11/20/19 09:44 Saccharomyces Boulardii (Florastor) 250 mg TWICE A DAY GT 10/19/19 18:00 01/17/20 17:59 10/30/19 08:30 Sitagliptin Phosphate (Januvia) 100 mg DAILY GT 10/20/19 09:00 11/19/19 08:59 10/30/19 08:30 Sucralfate (Carafate) 1 gm Q6HR GT 10/19/19 13:30 01/17/20 13:29 10/30/19 05:15 Tamsulosin HCl (Flomax) 0.4 mg DAILY ORAL 10/20/19 09:00 11/19/19 08:59 10/30/19 08:31 Jesica Alegria MD October 30, 2019 11:00"
[2019-10-30 12:00] VITALS: BP 117/74
--- NOTE | 2019-10-30 12:22 | General Progress Note ---
Assessment/Plan Problem List: (1) UTI (urinary tract infection) ICD Codes: N39.0 - Urinary tract infection, site not specified SNOMED: 87554412 (2) Encephalopathy acute ICD Codes: G93.40 - Encephalopathy, unspecified SNOMED: 6419303 (3) Leukocytosis ICD Codes: D72.829 - Elevated white blood cell count, unspecified SNOMED: 069655591 (4) Sepsis ICD Codes: A41.9 - Sepsis, unspecified organism SNOMED: 26844439 (5) Acute urinary tract infection (6) Diabetes mellitus out of control ICD Codes: E11.9 - Diabetes mellitus out of control SNOMED: 784475550 (7) G tube feedings ICD Codes: Z93.1 - G tube feedings SNOMED: 741927933 (8) Septicemia (9) Fecal impaction ICD Codes: K56.41 - Fecal impaction SNOMED: 21646383 (10) Krishnan catheter problem ICD Codes: T83.9XXA - Unsp complication of genitourinary prosth dev/grft, init SNOMED: 979360832 Status: stable, progressing Assessment/Plan: monitor off abx krishnan care monitor bs bowel regime feeds vent prn resp rx/t bar BP rx dc planning today if snf can accept tried to leave message with son but telephone full. Subjective ROS Limited/Unobtainable: No Constitutional: Reports: malaise, weakness HEENT: Reports: no symptoms Cardiovascular: Reports: no symptoms Respiratory: Reports: shortness of breath, sputum Gastrointestinal/Abdominal: Reports: difficulty swallowing Genitourinary: Reports: no symptoms Neurologic/Psychiatric: Reports: pre-existing deficit Endocrine: Reports: no symptoms Hematologic/Lymphatic: Reports: no symptoms Allergies: Coded Allergies: No Known Allergies (Unverified , 02/11/13) All Systems: reviewed and negative except above Subjective no events. Id and pulm appreciated. having BMs. tolerating feeds. completed iv abx. on trach collar. mild congestion/secretions. occasional suctioning required. nonverbal at baseline. Blood cultures and urine cultures noted. gt accidentally became dislodged- now replaced. snf could no accept pt yesterday. Objective Last 24 Hour Vital Signs Date Time Temp Pulse Resp B/P (MAP) Pulse Ox O2 Delivery O2 Flow Rate FiO2 10/30/19 12:19 117/74 10/30/19 09:00 T-piece 9.0 10/30/19 08:31 68 119/65 10/30/19 08:30 68 119/65 10/30/19 08:00 97.9 68 18 119/65 (83) 98 10/30/19 05:15 101/55 10/30/19 05:15 101/55 10/30/19 04:30 98.4 68 18 119/65 (83) 95 10/30/19 01:03 96 T-Piece 8.0 30 10/30/19 00:00 98.1 59 17 101/55 (70) 95 10/30/19 00:00 101/55 10/29/19 21:49 109/56 10/29/19 21:00 94 109/56 10/29/19 20:28 T-piece 9.0 10/29/19 20:00 97.9 94 15 109/56 (73) 94 10/29/19 19:43 97 T-Piece 8.0 30 10/29/19 19:43 91 20 97 T-Piece 8.0 30 10/29/19 17:05 80 126/72 10/29/19 17:04 126/72 10/29/19 16:00 98.8 80 20 126/72 (90) 98 10/29/19 15:16 125/80 10/29/19 13:13 96 T-Piece 8.0 30 Intake and Output 10/29/19 10/30/19 19:00 07:00 Intake Total 760 ml 360 ml Output Total 450 ml Balance 760 ml -90 ml Intake Free Water 400 ml Tube Feeding 360 ml 360 ml Output Urine Total 450 ml # Voids 1 # Bowel Movements 1 Height (Feet): 5 Height (Inches): 10.00 Weight (Pounds): 176 Objective General Appearance: WD/WN, lethargic, confused EENT: normal ENT inspection Neck: non-tender, normal alignment, supple Cardiovascular: normal peripheral pulses, normal rate, regular rhythm Respiratory/Chest: lungs clear, normal breath sounds, no respiratory distress, no accessory muscle use Abdomen: normal bowel sounds, non tender, soft, no organomegaly Edema: no edema noted Arm (L), no edema noted Arm (R), no edema noted Leg (L), no edema noted Leg (R), no edema noted Pedal (L), no edema noted Pedal (R), no edema noted Generalized Neurologic: disoriented, unresponsive, aphasia Skin: normal pigmentation Jeremiah Perkins MD October 30, 2019 12:22
--- NOTE | 2019-10-30 15:12 | Surgery Progress Note ---
Surgery Progress Note Subjective Additional Comments no acute events Objective Last 24 Hour Vital Signs Date Time Temp Pulse Resp B/P (MAP) Pulse Ox O2 Delivery O2 Flow Rate FiO2 10/30/19 12:19 117/74 10/30/19 12:00 98.2 74 19 117/74 (88) 98 10/30/19 09:00 T-piece 9.0 10/30/19 08:31 68 119/65 10/30/19 08:30 68 119/65 10/30/19 08:00 97.9 68 18 119/65 (83) 98 10/30/19 07:29 89 20 96 T-Piece 8.0 30 10/30/19 07:29 97 T-Piece 8.0 30 10/30/19 05:15 101/55 10/30/19 05:15 101/55 10/30/19 04:30 98.4 68 18 119/65 (83) 95 10/30/19 01:03 96 T-Piece 8.0 30 10/30/19 00:00 98.1 59 17 101/55 (70) 95 10/30/19 00:00 101/55 10/29/19 21:49 109/56 10/29/19 21:00 94 109/56 10/29/19 20:28 T-piece 9.0 10/29/19 20:00 97.9 94 15 109/56 (73) 94 10/29/19 19:43 97 T-Piece 8.0 30 10/29/19 19:43 91 20 97 T-Piece 8.0 30 10/29/19 17:05 80 126/72 10/29/19 17:04 126/72 10/29/19 16:00 98.8 80 20 126/72 (90) 98 10/29/19 15:16 125/80 I&O Intake and Output 10/29/19 10/30/19 19:00 07:00 Intake Total 760 ml 360 ml Output Total 450 ml Balance 760 ml -90 ml Intake Free Water 400 ml Tube Feeding 360 ml 360 ml Output Urine Total 450 ml # Voids 1 # Bowel Movements 1 Dressing: saturated Cardiovascular: RSR Respiratory: clear, decreased breath sounds Abdomen: non-tender, present bowel sounds Extremities: no cyanosis, pulses, other Plan Problems: (1) Deep tissue injury Assessment & Plan: sacral DTI noted on admission prior historical scar noted from healed wound wash daily with NS apply foam dressings turn q2h off load pressure pillow under legs will follow with recs thank you (2) Krishnan catheter problem Assessment & Plan: resolved urology place new krishnan functional (3) Failure to thrive Assessment & Plan: DAILY ESTIMATED NEEDS: Needs based on DTI, DM 78kg adj 22-27 kcals/kg [id number] total kcals 1.25-1.5 g protein/kg 98-117 g total protein 25-30 mL/kg 7885-5726 total fluid mLs NUTRITION DIAGNOSIS: Swallowing difficulty R/T respiratory status as evidenced by pt vent dep via T-collar w/ PEG feedings CURRENT TF:Glucerna 1.5@ 30ml/hr x 24 hrs ENTERAL NUTRITION RECOMMENDATIONS: Glucerna 1.5 @ 50ml/hr x 24 hrs to provide 1200ml, 1800 kcal, 99g pro. 911ml free H2O - Increase goal rate to 50ml/hr x 24 hrs to meet 100% est kcal/prot needs - HOB over 30 degrees - H20 flush of 180ml q 4 hrs ADDITIONAL RECOMMENDATIONS: - Change bed scale to jose bed for accurate CBW - When TF at goal is tolerated, rec KURTIS in 4oz H2O BID for wound care, continue Vit C - Monitor lytes, replete as needed (4) Leukocytosis Assessment & Plan: uti abx given improved labs improved (5) Fecal impaction Assessment & Plan: Abundant inspissated stool distending the rectum. Proximally, there is gas throughout the colon. Suspected fecal impaction. No clear free air on exam that includes the dome of the right hemidiaphragm. Right femoral vascular catheter. Krishnan catheter. Lumbar dextrocurvature. Chronic height loss to the leftward L3 level. Suture material again noted. IMPRESSION: Suspected fecal impaction. will start bowel regimen and enema may need manual disimpaction will follow with recs thank you Findings: Gastrostomy tube noted. There is a right transfemoral central venous catheter. Krishnan catheter is noted. Surgical material noted in the pelvis. Bowel gas pattern is nonspecific but not overtly obstructive. Dense stool in the rectum. Decreased. Interstitial and airspace disease noted in the bilateral lower lungs. There are degenerative changes in the spine. Degenerative versus chronic post traumatic changes of the left femur. IMPRESSION: Nonspecific but not overtly obstructive bowel gas pattern. Interval decrease in dense stool in the rectum. Indwelling gastrostomy tube. Interstitial and airspace disease noted in the bilateral lower lungs. Additional findings as above. Raheem Kolb October 30, 2019 15:12
[2019-10-30 16:00] VITALS: BP 115/83
== END 2019-10-30 17:54 | DRG 871 ==
LOC: EDUNIT# 02:45 → EDBD 02:45 → EMR 03:28 → 4E 03:36 → EDBEDREQ 09:12 → 4E 10-20 23:56
DX: A41.50 Gram-negative sepsis, unspecified (principal); J18.9 Pneumonia, unspecified organism; G92 Toxic encephalopathy; R53.2 Functional quadriplegia; N39.0 Urinary tract infection, site not specified; J96.10 Chronic respiratory failure, unspecified whether with hypoxia or hypercapnia; Z43.1 Encounter for attention to gastrostomy; T83.9XXA Unspecified complication of genitourinary prosthetic device, implant and graft, initial encounter; L89.156 Pressure-induced deep tissue damage of sacral region; R62.7 Adult failure to thrive; Z68.27 Body mass index [BMI] 27.0-27.9, adult; I10 Essential (primary) hypertension; E11.9 Type 2 diabetes mellitus without complications; R13.10 Dysphagia, unspecified; Z86.73 Personal history of transient ischemic attack (TIA), and cerebral infarction without residual deficits; N40.1 Benign prostatic hyperplasia with lower urinary tract symptoms; R33.8 Other retention of urine; K56.41 Fecal impaction; Y84.9 Medical procedure, unspecified as the cause of abnormal reaction of the patient, or of later complication, without mention of misadventure at the time of the procedure
CPT/HCPCS: 36415; 71045; 74018; 76770; 80048; 80053; 80202; 81003; 82550; 82553; 82962; 83605; 84484; 85007; 85025; 85651; 86140; 87040; 87081; 87086; 87181; 87635; 93005; 94664; 96361; 96365; 99285; J1815; J8499; S5561

== ENCOUNTER 2020-03-15 11:21 | Inpatient (IN) | payer MEDICARE, OTHER ==
[~2020-03-15] VITALS: Ht 177.8 cm; Wt 76.0 kg
[~2020-03-15 11:21] MED LIST changes: +CRANBERRY425 MG GT; +FLUCONAZOLE100 MG GT; +LEVAQUIN500 MG GT; +NOVOLOG100 UNITS1 SQ; +SUCRALFATE1 GM/10 ML GT; +VANCOMYCIN1 GM/2002 IV; +VITAMIN D310 MC1 GT; +ZYVOX600 MG GT
[2020-03-15] MEDS ORDERED: Cefepime HCl 2 GM in D5W 55 ML IVPB ONE (11:30)
[2020-03-15] MEDS ORDERED: Vancomycin 750 MG in NS 275 ML IVPB ONE (11:30)
[2020-03-15 11:50] VITALS: BP 124/68
--- NOTE | 2020-03-15 12:10 | Emergency Room Report ---
History of Present Illness General Chief Complaint: Abnormal Labs Source: Medical Record, EMS Present Illness HPI Patient is a 69-year-old male vent dependent brought in by EMS from his extended care facility for abnormal labs. Patient is in the facility with multiple medical problems currently being treated for osteomyelitis, sacral decubitus ulcer and pneumonia. Patient was found to have elevated white blood cell count and was transferred to the emergency room for further treatment. 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 COVID-19 Screening: Negative COVID-19 COVID-19 Testing Source: 03/10/20 Patient History Reviewed Nursing Documentation: PMH: Agreed; PSxH: Agreed Nursing Documentation-PMH Past Medical History: No History, Except For Hx Cardiac Problems: Yes Hx Hypertension: Yes Hx Pacemaker: No Hx Asthma: No Hx COPD: Yes Hx Diabetes: Yes Hx Cancer: No Hx Gastrointestinal Problems: Yes Hx Dialysis: No Hx Neurological Problems: Yes Hx Cerebrovascular Accident: Yes Hx Transient Ischemic Attacks: Yes Hx Dementia: Yes Hx Encephalitis: Yes Hx Seizures: Yes Hx Epilepsy: Yes Hx Paralysis: Yes - QUADRAPRELIGA Hx Aphasia: Yes Hx Weakness: Yes Hx Neurologic Surgery: No Hx Brain Shunt: No Review of Systems All Other Systems: limited - Nonverbal Physical Exam Vital Signs Date Time Temp Pulse Resp B/P (MAP) Pulse Ox O2 Delivery O2 Flow Rate FiO2 03/15/20 11:22 99.0 77 21 124/68 (86) 97 Mechanical Ventilator 5.0 Sp02 EP Interpretation: reviewed, normal General Appearance: other - Nonverbal, Chronically Ill Head: normocephalic, atraumatic ENT: dry mucus membranes Neck: other - Trach in place connected to ventilator Respiratory: rhonchi Cardiovascular #1: regular rate, rhythm Gastrointestinal: non tender, soft, other - Tube in place with surrounding skin breakdown and ventral hernia Rectal: deferred Psychiatric: other - Nonverbal Skin: other - Right buttock stage IV decubitus ulcer left buttock stage II decubitus ulcer Medical Decision Making Diagnostic Impression: Primary Impression: Pneumonia Additional Impressions: Decubital ulcer UTI (urinary tract infection) Anemia Leukocytosis ER Course Patient has been pancultured. Patient's lactate is normal. Patient has leukocytosis of 25,000. Patient started on vancomycin as well as cefepime. Patient has UTI, pneumonia and infected decubitus ulcer. Patient will be admitted for further treatment and evaluation. Laboratory Tests Test 03/15/20 11:42 03/15/20 12:00 Arterial Blood pH 7.442 (7.350-7.450) Arterial Blood Partial Pressure CO2 40.6 mmHg (35.0-45.0) Arterial Blood Partial Pressure O2 110.1 mmHg (75.0-100.0) H Arterial Blood HCO3 27.1 mmol/L (22.0-26.0) H Arterial Blood Oxygen Saturation 97.9 % (95-100) Arterial Blood Base Excess 2.8 (-2-2) H Nghia Test Positive White Blood Count 25.6 K/UL (4.8-10.8) *H Red Blood Count 3.67 M/UL (4.70-6.10) L Hemoglobin 9.5 G/DL (14.2-18.0) L Hematocrit 30.3 % (42.0-52.0) L Mean Corpuscular Volume 83 FL (80-99) Mean Corpuscular Hemoglobin 25.8 PG (27.0-31.0) L Mean Corpuscular Hemoglobin Concent 31.3 G/DL (32.0-36.0) L Red Cell Distribution Width 16.7 % (11.6-14.8) H Platelet Count 362 K/UL (150-450) Mean Platelet Volume 10.9 FL (6.5-10.1) H Neutrophils (%) (Auto) % (45.0-75.0) Lymphocytes (%) (Auto) % (20.0-45.0) Monocytes (%) (Auto) % (1.0-10.0) Eosinophils (%) (Auto) % (0.0-3.0) Basophils (%) (Auto) % (0.0-2.0) Neutrophils % (Manual) Pending Lymphocytes % (Manual) Pending Platelet Estimate Pending Platelet Morphology Pending Prothrombin Time 10.8 SEC (9.30-11.50) Prothrombin Time INR 1.0 (0.9-1.1) Activated Partial Thromboplast Time 33 SEC (23-33) Urine Color Pale yellow Urine Appearance Clear Urine pH 7 (4.5-8.0) Urine Specific [place] 1.005 (1.005-1.035) Urine Protein 2+ (NEGATIVE) H Urine Glucose (UA) Negative (NEGATIVE) Urine Ketones Negative (NEGATIVE) Urine Blood 2+ (NEGATIVE) H Urine Nitrite Negative (NEGATIVE) Urine Bilirubin Negative (NEGATIVE) Urine Urobilinogen Normal MG/DL (0.0-1.0) Urine Leukocyte Esterase 3+ (NEGATIVE) H Urine RBC 5-10 /HPF (0 - 0) H Urine WBC 15-20 /HPF (0 - 0) H Urine Squamous Epithelial Cells Occasional /LPF Urine Bacteria Occasional /HPF (NONE) Sodium Level 140 MMOL/L (136-145) Potassium Level 3.7 MMOL/L (3.5-5.1) Chloride Level 104 MMOL/L (98-107) Carbon Dioxide Level 30 MMOL/L (21-32) Blood Urea Nitrogen 21 mg/dL (7-18) H Creatinine 0.9 MG/DL (0.55-1.30) Estimated Glomerular Filtration Rate > 60 mL/min (>60) Glucose Level 138 MG/DL (74-106) H Lactic Acid Level 1.40 mmol/L (0.4-2.0) Calcium Level 8.9 MG/DL (8.5-10.1) Magnesium Level 2.2 MG/DL (1.8-2.4) Total Bilirubin 0.3 MG/DL (0.2-1.0) Aspartate Amino Transferase (AST) 18 U/L (15-37) Alanine Aminotransferase (ALT) 29 U/L (12-78) Alkaline Phosphatase 102 U/L (46-116) Troponin I 0.000 ng/mL (0.000-0.056) Total Protein 7.3 G/DL (6.4-8.2) Albumin 2.2 G/DL (3.4-5.0) L Globulin 5.1 g/dL Albumin/Globulin Ratio 0.4 (1.0-2.7) L Microbiology Date/Time Source Procedure Growth Status 03/15/20 12:00 Nasopharynx SARS-CoV-2 RdRp Gene Assay - Final Complete EKG Diagnostic Results EKG Time: 11:44 EP Interpretation: Svitlana Santos MD Rate: normal - 83 bpm Rhythm: NSR ST Segments: no acute changes Other Impression Occasional PVC ASA given to the pt in ED: No Rhythm Strip Diag. Results Rhythm Strip Time: 12:09 EP Interpretation: yes - Svitlana Santos MD Rate: 77 bpm Rhythm: NSR, no PVC's, no ectopy Chest X-Ray Diagnostic Results Chest X-Ray Diagnostic Results : Chest X-Ray Ordered: Yes # of Views/Limited/Complete: 1 View Indication: Other - Abnormal labs EP Interpretation: Yes Interpretation: no effusion, no pneumothorax, other - Bilateral pulmonary infiltrates Impression: Other - pneumonia Electronically Signed by: Svitlana Santos MD Last Vital Signs Date Time Temp Pulse Resp B/P (MAP) Pulse Ox O2 Delivery O2 Flow Rate FiO2 03/15/20 11:22 99.0 77 21 124/68 (86) 97 Mechanical Ventilator 5.0 Disposition: ADMITTED INPATIENT - SDU Physician Consult: Dr. Perkins at 1320 Additional Instructions: Please note that this report is being documented using DRAGON technology. This can lead to erroneous entry secondary to incorrect interpretation by the dictating instrument. Svitlana Santos M.D. Mar 15, 2020 12:10
[2020-03-15 12:40] LABS: HEMATOCRIT 30.3 % (42.0-52.0); HEMOGLOBIN 9.5 G/DL (14.2-18.0); MEAN CORPUSCULAR VOLUME 83 FL (80-99); PLATELET COUNT 362 K/UL (150-450); RED BLOOD COUNT 3.67 M/UL (4.70-6.10); RED CELL DISTRIBUTION WIDTH 16.7 % (11.6-14.8)
[2020-03-15] MEDS ORDERED: ACETAMINOP160 MG/5 M GT (12:40)
--- NOTE | 2020-03-15 12:40 | Diagnostic Imaging Report ---
EXAM: XR Chest, 1 View CLINICAL HISTORY: PAIN TECHNIQUE: Frontal view of the chest. COMPARISON: Chest radiograph on 02/14/2020 FINDINGS: Hardware: Tracheostomy tube terminates in the region of the upper thoracic trachea. Lungs/pleura: Consolidations in the lower lungs may represent atelectasis versus pneumonia. Small bilateral pleural effusions. Possible pulmonary vasculature congestion/edema. Stable elevation of the right hemidiaphragm. Heart/mediastinum: Stable enlargement of the cardiac silhouette. Soft tissues: Unremarkable. Bones: No acute fracture. Upper abdomen: Normal. IMPRESSION: 1. Consolidations in the lower lungs may represent atelectasis versus pneumonia. Small bilateral pleural effusions. 2. Possible pulmonary vasculature congestion/edema.
[2020-03-15 12:42] LABS: APPEARANCE,URINE CLEAR; BILIRUBIN, URINE NEGATIVE (NEGATIVE); COLOR,URINE PALE YELLOW; GLUCOSE, URINE (UA) NEGATIVE (NEGATIVE); KETONES,URINE NEGATIVE (NEGATIVE); LEUKOCYTE ESTERASE ,URINE 3+ (NEGATIVE); NITRITE,URINE NEGATIVE (NEGATIVE); PH,URINE 7 (4.5-8.0); PROTEIN,URINE 2+ (NEGATIVE); UROBILINOGEN,URINE NORMAL MG/DL (0.0-1.0)
[2020-03-15 12:51] LABS: WHITE BLOOD COUNT 25.6 K/UL (4.8-10.8)
[2020-03-15 12:59] LABS: ALANINE AMINOTRANSFERASE 29 U/L (12-78); ALBUMIN 2.2 G/DL (3.4-5.0); ALBUMIN/GLOBULIN RATIO 0.4 (1.0-2.7); ALKALINE PHOSPHATASE 102 U/L (46-116); ASPARTATE AMINO TRANSFERASE 18 U/L (15-37); BILIRUBIN,TOTAL 0.3 MG/DL (0.2-1.0); BLOOD UREA NITROGEN 21 mg/dL (7-18); CALCIUM 8.9 MG/DL (8.5-10.1); CARBON DIOXIDE 30 MMOL/L (21-32); CHLORIDE 104 MMOL/L (98-107); CREATININE 0.9 MG/DL (0.55-1.30); POTASSIUM 3.7 MMOL/L (3.5-5.1); SODIUM 140 MMOL/L (136-145)
[2020-03-15 13:40] VITALS: BP 123/69
[2020-03-15 16:00] VITALS: BP 144/79
[2020-03-15] MEDS ORDERED: Acetaminophen 650mg/20.3ml ORAL PRN (16:00)
[2020-03-15] MEDS ORDERED: Milk of Magnesia 30ml Ud GT PRN (16:00)
[2020-03-15] MEDS ORDERED: Fleet's Enema 133ml RECTAL PRN (16:00)
[2020-03-15] MEDS: NovoLOG Insulin Flexpen SUBQ SCH ×2 (16:30→20:41)
[2020-03-15] MEDS: Levemir Flexpen SUBQ SCH (17:56)
[2020-03-15] MEDS ORDERED: Docusate 100mg cap ORAL SCH (18:00)
[2020-03-15] MEDS: Zinc Oxide Oint 2oz TOPIC SCH (18:02)
[2020-03-15 20:00] VITALS: BP 143/72
[2020-03-15] MEDS: Vancomycin 1.25gm/NS Premix q24h IVPB SCH (20:22)
[2020-03-15] MEDS: Doxazosin 1mg Tab GT SCH (20:22)
[2020-03-15] MEDS: Tamsulosin 0.4mg cap ORAL SCH (20:22)
[2020-03-15] MEDS: Heparin 5000 units/ml inj SUBQ SCH (20:24)
[2020-03-15] MEDS: HydrALAZINE 50mg tab GT SCH (22:00)
[2020-03-15] MEDS: Piperacillin/Tazobactam 3.375 GM in NS 110 ML IVPB SCH (23:05)
[2020-03-16] VITALS: BP 103/54
[2020-03-16 04:00] VITALS: BP 103/61
[2020-03-16] MEDS: Piperacillin/Tazobactam 3.375 GM in NS 110 ML IVPB SCH ×3 (05:09→22:07)
[2020-03-16] MEDS: HydrALAZINE 50mg tab GT SCH ×3 (05:09→22:07)
[2020-03-16] MEDS: NovoLOG Insulin Flexpen SUBQ SCH ×4 (05:11→21:00)
[2020-03-16 08:00] VITALS: BP 131/60
--- NOTE | 2020-03-16 08:10 | Consultation ---
Consult Note Consult Note 69-year-old male trach dependent brought in for elevated wbc and concern for spesis. Patient is in the facility with multiple medical problems currently being treated for osteomyelitis, sacral decubitus ulcer and pneumonia. Patient was found to have elevated white blood cell count and has been on antibiotics. care noted and reviewed. patient chronically bed bound and fully dependent Allergies: No Known Allergies (Unverified , 02/11/13) Past Medical History: trach, respiratory failure, chronic urinary retention, BP H, chronic encephalopathy, osteomyelitis Social history: SN[facility] patient chronically bed bound Family HIstory; not available MEDS and Allergies reviewed and reconciled Physical WDWN NAD, chronically ill trach in place reduced breath sounds bilaterally without rhonchi or wheeze [id number] without MRG NABS nontender no distention; GT no CCE quad wounds noted Laboratory Tests Test 03/15/20 11:42 03/15/20 12:00 03/15/20 16:46 03/15/20 20:39 Arterial Blood pH 7.442 (7.350-7.450) Arterial Blood Partial Pressure CO2 40.6 mmHg (35.0-45.0) Arterial Blood Partial Pressure O2 110.1 mmHg (75.0-100.0) H Arterial Blood HCO3 27.1 mmol/L (22.0-26.0) H Arterial Blood Oxygen Saturation 97.9 % (95-100) Arterial Blood Base Excess 2.8 (-2-2) H Nghia Test Positive White Blood Count 25.6 K/UL (4.8-10.8) *H Red Blood Count 3.67 M/UL (4.70-6.10) L Hemoglobin 9.5 G/DL (14.2-18.0) L Hematocrit 30.3 % (42.0-52.0) L Mean Corpuscular Volume 83 FL (80-99) Mean Corpuscular Hemoglobin 25.8 PG (27.0-31.0) L Mean Corpuscular Hemoglobin Concent 31.3 G/DL (32.0-36.0) L Red Cell Distribution Width 16.7 % (11.6-14.8) H Platelet Count 362 K/UL (150-450) Mean Platelet Volume 10.9 FL (6.5-10.1) H Neutrophils (%) (Auto) % (45.0-75.0) Lymphocytes (%) (Auto) % (20.0-45.0) Monocytes (%) (Auto) % (1.0-10.0) Eosinophils (%) (Auto) % (0.0-3.0) Basophils (%) (Auto) % (0.0-2.0) Differential Total Cells Counted 100 Neutrophils % (Manual) 82 % (45-75) H Lymphocytes % (Manual) 10 % (20-45) L Monocytes % (Manual) 7 % (1-10) Eosinophils % (Manual) 1 % (0-3) Basophils % (Manual) 0 % (0-2) Band Neutrophils 0 % (0-8) Platelet Estimate Adequate Platelet Morphology Normal Hypochromasia 1+ Anisocytosis 1+ Prothrombin Time 10.8 SEC (9.30-11.50) Prothromb Time International Ratio 1.0 (0.9-1.1) Activated Partial Thromboplast Time 33 SEC (23-33) Urine Color Pale yellow Urine Appearance Clear Urine pH 7 (4.5-8.0) Urine Specific [place] 1.005 (1.005-1.035) Urine Protein 2+ (NEGATIVE) H Urine Glucose (UA) Negative (NEGATIVE) Urine Ketones Negative (NEGATIVE) Urine Blood 2+ (NEGATIVE) H Urine Nitrite Negative (NEGATIVE) Urine Bilirubin Negative (NEGATIVE) Urine Urobilinogen Normal MG/DL (0.0-1.0) Urine Leukocyte Esterase 3+ (NEGATIVE) H Urine RBC 5-10 /HPF (0 - 0) H Urine WBC 15-20 /HPF (0 - 0) H Urine Squamous Epithelial Cells Occasional /LPF Urine Bacteria Occasional /HPF (NONE) Sodium Level 140 MMOL/L (136-145) Potassium Level 3.7 MMOL/L (3.5-5.1) Chloride Level 104 MMOL/L (98-107) Carbon Dioxide Level 30 MMOL/L (21-32) Blood Urea Nitrogen 21 mg/dL (7-18) H Creatinine 0.9 MG/DL (0.55-1.30) Estimat Glomerular Filtration Rate > 60 mL/min (>60) Glucose Level 138 MG/DL (74-106) H Lactic Acid Level 1.40 mmol/L (0.4-2.0) Calcium Level 8.9 MG/DL (8.5-10.1) Magnesium Level 2.2 MG/DL (1.8-2.4) Total Bilirubin 0.3 MG/DL (0.2-1.0) Aspartate Amino Transf (AST/SGOT) 18 U/L (15-37) Alanine Aminotransferase (ALT/SGPT) 29 U/L (12-78) Alkaline Phosphatase 102 U/L (46-116) Troponin I 0.000 ng/mL (0.000-0.056) Total Protein 7.3 G/DL (6.4-8.2) Albumin 2.2 G/DL (3.4-5.0) L Globulin 5.1 g/dL Albumin/Globulin Ratio 0.4 (1.0-2.7) L POC Whole Blood Glucose Pending 104 MG/DL (74-106) Test 03/16/20 05:08 POC Whole Blood Glucose 148 MG/DL (74-106) H IMPRESSION respiratory failure chronic osteomyelitis leukocytosis anemia trach GT chronic encephalopathy PLAN IV antibiotics care noted respiratory care monitor oxygen needs wound care feeds off load monitor HH transfuse if needed impression, plan, and exam edited and reviewed in detail care discussed with Silver Correa MD Mar 16, 2020 08:10
[2020-03-16] MEDS: Calcium Carbonate 650mg Tab GT SCH (08:37)
[2020-03-16] MEDS: Docusate 100mg/10ml Liq GT SCH ×2 (08:37→17:10)
[2020-03-16] MEDS: Fluconazole 100mg tab GT SCH (08:37)
[2020-03-16] MEDS: Ascorbic Acid 500mg tab GT SCH (08:37)
[2020-03-16] MEDS: Heparin 5000 units/ml inj SUBQ SCH ×2 (08:44→21:20)
[2020-03-16] MEDS ORDERED: CALCIUM CARBON500 M1 GT (08:53)
[2020-03-16] MEDS: Zinc Oxide Oint 2oz TOPIC SCH ×3 (08:54→17:18)
[2020-03-16] MEDS ORDERED: DOCUSATE SODIU100 M2 GT (08:56)
[2020-03-16] MEDS ORDERED: DOXAZOSIN MESYLA2 MG GT (09:00)
--- NOTE | 2020-03-16 09:30 | History and Physical Report ---
DATE OF ADMISSION: 03/15/2020 CHIEF COMPLAINT: Sepsis. HISTORY OF PRESENT ILLNESS: The patient is an unfortunate 69-year-old male. He has a history of anoxic encephalopathy, stroke, hypertension, and diabetes. He has a history of chronic respiratory failure. He was transferred because of fevers, leukocytosis, and congestion. He was recently hospitalized with pneumonia as well as a sacral osteomyelitis. He has been on IV antibiotic therapy. Despite antibiotic therapy, he has had worsening leukocytosis. Recently, he became increasingly more short of breath and was placed from trach collar onto the vent. On evaluation in the emergency room, the patient had evidence of bilateral lower lobe pneumonia. He also had evidence of UTI. He has been pancultured, started on broad spectrum IV antibiotics. He is now admitted for further evaluation and care. PAST MEDICAL HISTORY: As above. PAST SURGICAL HISTORY: Includes a trach and a G-tube. CURRENT MEDICATIONS: Reconciled and reviewed. ALLERGIES: None. FAMILY HISTORY: None. SOCIAL HISTORY: There is no known history of tobacco, ethanol, or drugs. REVIEW OF SYSTEMS: From the patient is unobtainable, he is nonverbal at baseline. PHYSICAL EXAMINATION: VITAL SIGNS: Temperature 99.3, pulse 76, respirations 16, blood pressure 103/54. GENERAL: The patient is a well-developed, chronically ill-appearing male, in no apparent distress. He is nonverbal and poorly responsive at baseline. HEENT: Head is normocephalic and atraumatic. Sclerae are anicteric. Oropharynx is clear. Mucous membranes moist. NECK: Supple. Trach site was midline and clean, dry, and intact. HEART: Regular rate and rhythm. LUNGS: Clear anteriorly. ABDOMEN: Soft, nontender, nondistended. EXTREMITIES: No clubbing or cyanosis. SKIN: There is a large sacral wound noted. LABORATORY DATA: White count 25,000, hemoglobin , hematocrit 30, platelets of 362. Sodium was 140, potassium 3.7, BUN 21, and creatinine 0.9. LFTs were unremarkable. UA showed 15 to 20 wbc's. Chest x-ray showed possible bilateral lower lobe infiltrates versus atelectasis. ASSESSMENT: This is a 69-year-old male with a history of chronic respiratory failure, anoxic encephalopathy, stroke, hypertension, diabetes, and sacral osteomyelitis, admitted with complaints of sepsis possibly secondary to urinary tract infection or pneumonia, cannot rule out a line infection. PLAN: 1. Broad spectrum antibiotics. 2. Follow up pending cultures. 3. Pulmonary, Cardiology, and Infectious Disease consultations have been obtained. 4. Continue G-tube feeds. 5. Continue outpatient cardiac regimen. 6. We will monitor the patient's labs. 7. Wound care followup. 8. Plan of care will be discussed with the patient's son, . Jeremiah Perkins M.D. DR: EFFIE JOB#: [id number] CC:
--- NOTE | 2020-03-16 09:36 | Consultation ---
History of Present Illness General Date patient seen: Mar 16, 2020 Reason for Hospitalization: Abnormal Labs Present Illness HPI This is a 69-year-old male known to me from prior admission who cared for in the past with abnormal decubitus ulcer who was in a care facility identified to have worsening leukocytosis admitted for further care management. He has been treated for osteomyelitis in the past but persistently has leukocytosis now and work-up necessary. Patient admitted further care management surgery called to evaluate and assist with care. Patient seen, patient evaluated, chart reviewed. Patient is limited in providing history given his medical condition. He has a trach on vent support or T-piece as necessary. Feeding tube with tube feeds. Currently on air mattress. Allergies: Coded Allergies: No Known Allergies (Unverified , 02/11/13) COVID-19 Screening Contact w/high risk pt: No Recent Travel to affected area: No Experienced COVID-19 symptoms?: No Medication History Scheduled Amlodipine Besylate* (Amlodipine Besylate*), 5 MG GT BID, (Reported) Ascorbic Acid* (Vitamin C*), 500 MG GT DAILY, (Reported) Cholecalciferol (Vitamin D3) (Vitamin D3), 1,000 UNITS GT DAILY, (Reported) Cranberry Extract (Cranberry), 425 MG GT BID, (Reported) Docusate Sodium (Docusate Sodium), 100 MG GT BID, (Reported) Doxazosin Mesylate (Doxazosin Mesylate), 2 MG GT BEDTIME, (Reported) Finasteride* (Proscar*), 5 MG GT DAILY, (Reported) Hydralazine Hcl* (Hydralazine Hcl*), 50 MG GT EVERY 8 HOURS, (Reported) Insulin Aspart (Novolog Flexpen), SQ Q6HR, (Reported) Insulin Detemir (Levemir), 40 UNITS SUBQ EVERY 12 HOURS, (Reported) Linagliptin (Tradjenta), 5 MG GT DAILY, (Reported) Metoprolol Tartrate (Metoprolol Tartrate), 25 MG GT EVERY 12 HOURS Multivit &Minerals/Ferrous Fum (Complete Multivit-Mineral Liq), 15 ML GT DAILY, (Reported) Saccharomyces Boulardii (Florastor*), 250 MG GT TWICE A DAY, (Reported) Sucralfate (Sucralfate), 10 ML GT FOUR TIMES A DAY, (Reported) Tamsulosin HCl (Flomax), 0.4 MG GT BEDTIME, (Reported) Vancomycin/Water For Inj (Peg) (Vancomycin 1 Gram/200 ml Bag), 1 GM IV Q12HR, (Reported) Scheduled PRN Acetaminophen 160MG/5ML* (Acetaminophen*), 20 ML GT DAILY PRN for pain mgt, (Reported) Bisacodyl (Dulcolax), 10 MG RC DAILY PRN for Constipation, (Reported) Clonidine Hcl* (Catapres*), 0.1 MG GT Q6HR PRN for HTN SBP > 160, (Reported) Magnesium Hydroxide* (Milk Of Magnesia*), 30 ML GT BEDTIME PRN for Constipation, (Reported) Na Phos,M-B/Na Phos,Di-Ba* (Fleet Enema*), 1 SUPP RECTAL EVERY 2 DAYS PRN for Constipation, (Reported) Miscellaneous Medications Calcium Carbonate (Calcium Carbonate), 500 MG GT, (Reported) Discontinued Medications Calcium Carbonate (Calcium), 500 MG GT DAILY, (Reported) Discontinued Reason: Prescription changed Doxazosin Mesylate* (Cardura*), 2 MG GT BEDTIME, (Reported) Discontinued Reason: Prescription changed Fluconazole (Fluconazole), 100 MG GT DAILY, (Reported) Discontinued Reason: Therapy completed Levofloxacin* (Levaquin*), 500 MG GT DAILY, (Reported) Discontinued Reason: Therapy completed Linezolid* (Zyvox*), 600 MG GT EVERY 12 HOURS, (Reported) Discontinued Reason: Therapy completed Patient History Limited by: medical condition History Provided By: Medical Record, PMD Healthcare decision maker Resuscitation status Advanced Directive on File Past Medical/Surgical History Past Medical/Surgical History: (1) Abnormal laboratory test result (2) Urinary retention (3) Respiratory failure (4) Hypertension (5) BPH (benign prostatic hyperplasia) (6) Diabetes mellitus type 2 with complications (7) Toxic metabolic encephalopathy (8) Septic shock (9) Hematuria (10) Hematuria (11) Failure to thrive (12) Fecal impaction (13) Hypernatremia (14) Bowel obstruction (15) Bowel obstruction (16) Leukocytosis (17) Sepsis (18) Respiratory failure, chronic (19) SBO (small bowel obstruction) (20) Pneumonia (21) [address]41 (22) Pneumonia (23) Pneumonia (24) Encephalopathy acute (25) Encephalopathy chronic (26) Diabetes mellitus out of control (27) G tube feedings (28) Peters catheter problem (29) Deep tissue injury (30) Acute urinary tract infection (31) Acute urinary tract infection (32) Lactic acidosis (33) Septicemia (34) Septicemia (35) Septicemia (36) Urosepsis (37) Urosepsis (38) tachycardia (39) Abdominal wall cellulitis (40) Stage 4 skin ulcer of sacral region (41) Anemia (42) Decubital ulcer (43) Leukocytosis (44) UTI (urinary tract infection) (45) Pneumonia (46) Sepsis Review of Systems Review of Symptoms General ROS: no weight loss or fever Psychological ROS: no depression or mood changes, no memory loss Ophthalmic ROS: no visual changes or eye irritation ENT ROS: no nasal congestion, hearing loss, dizziness Allergy and Immunology ROS: no allergic symptoms or urticaria Hematological and Lymphatic ROS: no swollen glands, unusual bleeding or bruising Endocrine ROS: no polyuria, polydipsia, weight changes, temperature intolerance Respiratory ROS: no cough, shortness of breath, or wheezing Cardiovascular ROS: no chest pain or dyspnea on exertion Gastrointestinal ROS: denies abdominal pain, bright red blood in stool. Musculoskeletal ROS: no myalgias or arthralgias Neurological ROS: no TIA or stroke symptoms Dermatological ROS: no new or changing skin lesions, rashes or pruritis limited given medical condition Physical Exam Physical Exam General appearance: no distress, appears stated age Head: Normocephalic, without obvious abnormality, atraumatic Eyes: conjunctivae/corneas clear. PERRL, EOM's intact. Fundi benign Throat: Lips, mucosa, and tongue normal. Teeth and gums normal Neck: supple, symmetrical, trachea midline, no adenopathy, thyroid: not enlarged, symmetric, no tenderness/mass/nodules, no carotid bruit and no JVD +trach Lungs: decrease to auscultation bilaterally on support Heart: regular rate and rhythm, S1, S2 normal, no murmur, click, rub or gallop Abdomen: soft, non-tender. Bowel sounds normal. No masses, no organomegaly +feeding tube Extremities: extremities normal, atraumatic, no cyanosis or edema Pulses: 2+ and symmetric Skin: Skin see below Neurologic: Grossly normal Last 24 Hour Vital Signs Date Time Temp Pulse Resp B/P (MAP) Pulse Ox O2 Delivery O2 Flow Rate FiO2 03/16/20 08:37 90 131/60 03/16/20 08:37 90 131/60 03/16/20 08:00 97.9 90 21 131/60 (83) 99 03/16/20 07:25 82 16 40 03/16/20 05:09 106/59 03/16/20 04:00 98.1 72 15 103/61 (75) 100 03/16/20 04:00 Mechanical Ventilator 03/16/20 04:00 40 03/16/20 03:36 79 03/16/20 03:18 87 16 40 03/16/20 00:00 99.3 76 16 103/54 (70) 98 03/16/20 00:00 Mechanical Ventilator 03/15/20 23:48 73 03/15/20 23:18 76 16 40 03/15/20 22:26 Mechanical Ventilator 03/15/20 22:00 104/61 03/15/20 20:45 98.4 03/15/20 20:23 99 130/64 03/15/20 20:00 100.8 96 20 143/72 (95) 98 03/15/20 20:00 87 03/15/20 20:00 40 03/15/20 20:00 Mechanical Ventilator 03/15/20 18:59 94 25 40 03/15/20 18:03 83 144/79 03/15/20 16:49 84 24 100 Mechanical Ventilator 40 03/15/20 16:12 Mechanical Ventilator 03/15/20 16:00 97.7 83 16 144/79 (100) 100 03/15/20 16:00 Mechanical Ventilator 03/15/20 16:00 76 03/15/20 16:00 40 03/15/20 15:20 86 22 40 03/15/20 13:40 98.2 75 20 123/69 99 Mechanical Ventilator 40 03/15/20 11:50 98.3 72 21 124/68 97 Mechanical Ventilator 40 03/15/20 11:35 73 17 40 03/15/20 11:22 99.0 77 21 124/68 (86) 97 Mechanical Ventilator 5.0 Intake and Output 03/15/20 03/16/20 19:00 07:00 Intake Total 205 ml 826.663 ml Output Total 500 ml Balance -295 ml 826.663 ml Intake Oral 100 ml Free Water 30 ml 100 ml IV Total 476.663 ml Tube Feeding 75 ml 250 ml Output Urine Total 500 ml # Bowel Movements 2 Laboratory Tests Test 03/15/20 11:42 03/15/20 12:00 03/15/20 16:46 03/15/20 20:39 Arterial Blood pH 7.442 (7.350-7.450) Arterial Blood Partial Pressure CO2 40.6 mmHg (35.0-45.0) Arterial Blood Partial Pressure O2 110.1 mmHg (75.0-100.0) H Arterial Blood HCO3 27.1 mmol/L (22.0-26.0) H Arterial Blood Oxygen Saturation 97.9 % (95-100) Arterial Blood Base Excess 2.8 (-2-2) H Nghia Test Positive White Blood Count 25.6 K/UL (4.8-10.8) *H Red Blood Count 3.67 M/UL (4.70-6.10) L Hemoglobin 9.5 G/DL (14.2-18.0) L Hematocrit 30.3 % (42.0-52.0) L Mean Corpuscular Volume 83 FL (80-99) Mean Corpuscular Hemoglobin 25.8 PG (27.0-31.0) L Mean Corpuscular Hemoglobin Concent 31.3 G/DL (32.0-36.0) L Red Cell Distribution Width 16.7 % (11.6-14.8) H Platelet Count 362 K/UL (150-450) Mean Platelet Volume 10.9 FL (6.5-10.1) H Neutrophils (%) (Auto) % (45.0-75.0) Lymphocytes (%) (Auto) % (20.0-45.0) Monocytes (%) (Auto) % (1.0-10.0) Eosinophils (%) (Auto) % (0.0-3.0) Basophils (%) (Auto) % (0.0-2.0) Differential Total Cells Counted 100 Neutrophils % (Manual) 82 % (45-75) H Lymphocytes % (Manual) 10 % (20-45) L Monocytes % (Manual) 7 % (1-10) Eosinophils % (Manual) 1 % (0-3) Basophils % (Manual) 0 % (0-2) Band Neutrophils 0 % (0-8) Platelet Estimate Adequate Platelet Morphology Normal Hypochromasia 1+ Anisocytosis 1+ Prothrombin Time 10.8 SEC (9.30-11.50) Prothromb Time International Ratio 1.0 (0.9-1.1) Activated Partial Thromboplast Time 33 SEC (23-33) Urine Color Pale yellow Urine Appearance Clear Urine pH 7 (4.5-8.0) Urine Specific Chappell 1.005 (1.005-1.035) Urine Protein 2+ (NEGATIVE) H Urine Glucose (UA) Negative (NEGATIVE) Urine Ketones Negative (NEGATIVE) Urine Blood 2+ (NEGATIVE) H Urine Nitrite Negative (NEGATIVE) Urine Bilirubin Negative (NEGATIVE) Urine Urobilinogen Normal MG/DL (0.0-1.0) Urine Leukocyte Esterase 3+ (NEGATIVE) H Urine RBC 5-10 /HPF (0 - 0) H Urine WBC 15-20 /HPF (0 - 0) H Urine Squamous Epithelial Cells Occasional /LPF Urine Bacteria Occasional /HPF (NONE) Sodium Level 140 MMOL/L (136-145) Potassium Level 3.7 MMOL/L (3.5-5.1) Chloride Level 104 MMOL/L (98-107) Carbon Dioxide Level 30 MMOL/L (21-32) Blood Urea Nitrogen 21 mg/dL (7-18) H Creatinine 0.9 MG/DL (0.55-1.30) Estimat Glomerular Filtration Rate > 60 mL/min (>60) Glucose Level 138 MG/DL (74-106) H Lactic Acid Level 1.40 mmol/L (0.4-2.0) Calcium Level 8.9 MG/DL (8.5-10.1) Magnesium Level 2.2 MG/DL (1.8-2.4) Total Bilirubin 0.3 MG/DL (0.2-1.0) Aspartate Amino Transf (AST/SGOT) 18 U/L (15-37) Alanine Aminotransferase (ALT/SGPT) 29 U/L (12-78) Alkaline Phosphatase 102 U/L (46-116) Troponin I 0.000 ng/mL (0.000-0.056) Total Protein 7.3 G/DL (6.4-8.2) Albumin 2.2 G/DL (3.4-5.0) L Globulin 5.1 g/dL Albumin/Globulin Ratio 0.4 (1.0-2.7) L POC Whole Blood Glucose Pending 104 MG/DL (74-106) Test 03/16/20 05:08 POC Whole Blood Glucose 148 MG/DL (74-106) H Microbiology Date/Time Source Procedure Growth Status 03/15/20 12:00 Indwelling Cath Urine Culture - Preliminary NO GROWTH Resulted 03/15/20 12:00 Nasopharynx SARS-CoV-2 RdRp Gene Assay - Final Complete Height (Feet): 5 Height (Inches): 10.00 Weight (Pounds): 207 Medications Current Medications Medications (Trade) Dose Ordered Sig/Magda Route PRN Reason Start Time Stop Time Status Last Admin Dose Admin Acetaminophen (Tylenol) 650 mg DAILY PRN ORAL pain mgt 03/15/20 16:00 04/14/20 15:59 03/15/20 20:15 Amlodipine Besylate (Norvasc) 5 mg BID GT 03/15/20 18:00 04/14/20 17:59 03/16/20 08:37 Ascorbic Acid (Vitamin C) 500 mg DAILY GT 03/16/20 09:00 04/15/20 08:59 03/16/20 08:37 Bisacodyl (Dulcolax) 10 mg DAILY PRN RECTAL Constipation 03/15/20 16:00 06/13/20 15:59 Calcium Carbonate (Calcium Carbonate) 650 mg DAILY GT 03/16/20 09:00 06/14/20 08:59 03/16/20 08:37 Chlorhexidine Gluconate (Ingris-Hex 2%) 1 applic DAILY@2000 TOPIC 03/16/20 20:00 06/14/20 19:59 Clonidine HCl (Catapres Tab) 0.1 mg Q6H PRN GT HTN SBP > 160 03/15/20 16:00 06/13/20 15:59 Dextrose (Dextrose 50%) 25 ml Q30M PRN IV Hypoglycemia 03/15/20 16:00 06/13/20 15:59 Dextrose (Dextrose 50%) 50 ml Q30M PRN IV Hypoglycemia 03/15/20 16:00 06/13/20 15:59 Docusate Sodium (Colace) 100 mg TWICE A DAY GT 03/16/20 09:00 04/15/20 08:59 03/16/20 08:37 Doxazosin Mesylate (Cardura) 2 mg BEDTIME GT 03/15/20 21:00 04/14/20 20:59 03/15/20 20:22 Finasteride (Proscar) 5 mg DAILY ORAL 03/16/20 09:00 06/14/20 08:59 03/16/20 08:37 Fluconazole (Diflucan) 100 mg DAILY GT 03/16/20 09:00 03/23/20 08:59 03/16/20 08:37 Heparin Sodium (Porcine) (Heparin 5000 units/ml) 5,000 units EVERY 12 HOURS SUBQ 03/15/20 21:00 04/29/20 20:59 03/16/20 08:44 Hydralazine HCl (Apresoline) 50 mg EVERY 8 HOURS GT 03/15/20 22:00 06/13/20 21:59 Insulin Aspart (NovoLOG) BEFORE MEALS AND HS SUBQ 03/15/20 16:30 06/13/20 16:29 03/16/20 05:11 Insulin Detemir (Levemir) 30 units BID SUBQ 03/15/20 18:00 06/13/20 17:59 Magnesium Hydroxide (Mom) 30 ml BEDTIME PRN GT Constipation 03/15/20 16:00 04/14/20 15:59 Metoprolol Tartrate (Lopressor) 25 mg EVERY 12 HOURS GT 03/15/20 21:00 06/13/20 20:59 03/16/20 08:37 Piperacillin Sod/ Tazobactam Sod 3.375 gm/Sodium Chloride 110 ml @ 27.5 mls/hr EVERY 8 HOURS IVPB 03/15/20 22:00 03/20/20 21:59 03/16/20 05:09 Saccharomyces Boulardii (Florastor) 250 mg TWICE A DAY GT 03/15/20 18:00 06/13/20 17:59 03/16/20 08:37 Sodium Phosphate (Fleet's Sodium Phosl Enema) 133 ml DAILYPRN PRN RECTAL Constipation 03/15/20 16:00 04/14/20 15:59 Tamsulosin HCl (Flomax) 0.4 mg BEDTIME ORAL 03/15/20 21:00 04/14/20 20:59 03/15/20 20:22 Vancomycin HCl (Vanco pharmacy to dose) 1 ea DAILY PRN MISC Per rx protocol 03/15/20 16:00 04/14/20 15:59 Vancomycin/Sodium Chloride 275 ml @ 183.333 mls/hr Q12H IVPB 03/15/20 20:00 03/20/20 19:59 03/15/20 20:22 Zinc Oxide (Zinc Oxide) 1 applic THREE TIMES A DAY TOPIC 03/15/20 18:00 06/13/20 17:59 03/16/20 08:54 Assessment/Plan Problem List: (1) Anemia ICD Codes: D64.9 - Anemia, unspecified SNOMED: 611714989 (2) Decubital ulcer Assessment & Plan: Patient presented admission with a stage IV sacral decubitus ulcer and deep tissue injury wound with maceration of skin as well as into the buttock. Wound evaluated bedside with care team. Care plan and dressings applied. Thera honey initiated. Will follow with recommendations and care plan. Pt presented on admission with Tracheostomy,Erosion at GT site, Multiple Pressure injuries. Skin assessed around collar of trach and no areas of skin breakdown noted. Insertion site and Peristomal GT erythematous and macerated. Silver Nitrate x1 application applied. Full Thickness Pressure Injury with tunneling R Buttocks (L)5.8cm x (W)3.4cm x (D)2.7cm,Tunneling clockwise 11-12 by 3.9cm @12 o'clock. Beefy granulation at base of wound.Bone is palpable at base of wound. Edges are flat and adherent to base of wound. Rugby epithelial with scattered areas of hyperpigmentation periwound. Small amt sanguineous exudate noted. No odor noted. Partial thickness wounds in L shape formation noted R buttocks in close proximity to above wound. Marginal erythema along borders. (L)9.2cm x (W)5.5cm. Small amt serosanguineous exudate noted. Partially opened DTPI Sacrum (L)6.2cm x (W)3.3cm. Base of wound is purpuric and fluctuant with macerated borders including periwound. Scrotum is erythematous. Non-Blanchable erythema without fluctuance or induration R and L heels. Tx.Plan: Cleanse Sacral wound with Saline. Apply TheraHoney. Apply Moisture Barrier Paste periwound. Cover with Optifoam Drsg Daily and prn. Cleanse wound R Buttocks with Saline. Loosely pack with Therahoney impregnated Kerlix. Apply Moisture Barrier Paste periwound. Cover with Optifoam drsg. Change Daily and Prn. Apply Moisture Barrier paste to wound Outer R Buttocks. Cover with Optifoam drsg. Change every 3 days and prn. Apply Moisture Barrier Paste to Scrotum and groin area with each Incontinence care. Cleanse GT site with soap and water. Pat dry. Apply Zinc Oxide Paste to GT Site BID. Apply Cavilon Skin Barrier to both heels and Malleoli. Cover each site with Optifoam drsgs. Change every 7 days and prn. Reposition at least every 2hours or as tolerated. Off-load heels with pillow. APM/DALTON Mattress overlay. ICD Codes: L89.90 - Pressure ulcer of unspecified site, unspecified stage SNOMED: 085484222 (3) Leukocytosis Assessment & Plan: There appears to be a large open wound in the inferomedial right buttock adjacent to the right ischium. There are a few gas bubbles within the soft tissues subjacent to this. No discrete fluid collection demonstrated. There is some infiltration of the tissues lateral to the ischium. There is evidence of cortical erosion and bone loss of posterior and inferior ischium, consistent with osteomyelitis. on abx picc cont tx micro reviewed plan repeat CT ICD Codes: D72.829 - Elevated white blood cell count, unspecified SNOMED: 702724304 (4) UTI (urinary tract infection) ICD Codes: N39.0 - Urinary tract infection, site not specified SNOMED: 15885862 (5) Pneumonia ICD Codes: J18.9 - Pneumonia, unspecified organism SNOMED: 889690381 (6) Septic shock ICD Codes: A41.9 - Septic shock; R65.21 - Severe sepsis with septic shock SNOMED: 17808850 (7) Urinary retention ICD Codes: R33.9 - Retention of urine, unspecified SNOMED: 082808583 (8) Hematuria ICD Codes: R31.9 - Hematuria, unspecified SNOMED: 81027777 (9) Hematuria ICD Codes: R31.9 - Hematuria, unspecified SNOMED: 73150862 (10) Failure to thrive ICD Codes: R62.51 - Failure to thrive SNOMED: 54393713 (11) Fecal impaction ICD Codes: K56.41 - Fecal impaction SNOMED: 32058410 (12) Hypernatremia ICD Codes: E87.0 - Hypernatremia SNOMED: 47786753 (13) Bowel obstruction ICD Codes: K56.60 - Unspecified intestinal obstruction SNOMED: 92362313 (14) Bowel obstruction ICD Codes: K56.60 - Unspecified intestinal obstruction SNOMED: 29550012 (15) Leukocytosis ICD Codes: D72.829 - Elevated white blood cell count, unspecified SNOMED: 725477226 (16) Respiratory failure ICD Codes: J96.90 - Respiratory failure, unspecified, unspecified whether with hypoxia or hypercapnia SNOMED: 143034576 (17) Sepsis ICD Codes: A41.9 - Sepsis, unspecified organism SNOMED: 78349731 (18) Sepsis ICD Codes: A41.9 - Sepsis, unspecified organism SNOMED: 24145525 (19) Respiratory failure, chronic ICD Codes: J96.10 - Respiratory failure, chronic SNOMED: 98697681 (20) SBO (small bowel obstruction) ICD Codes: K56.69 - SBO (small bowel obstruction) SNOMED: 035122486 (21) Hypertension ICD Codes: I10 - Essential (primary) hypertension SNOMED: 05037930 (22) Pneumonia (23) 33462 (24) Pneumonia ICD Codes: J18.9 - Pneumonia, unspecified organism SNOMED: 638281520 (25) Pneumonia ICD Codes: J18.9 - Pneumonia, unspecified organism SNOMED: 443318737 (26) Encephalopathy acute ICD Codes: G93.40 - Encephalopathy, unspecified SNOMED: 2706982 (27) Encephalopathy chronic ICD Codes: G93.49 - Encephalopathy chronic SNOMED: 70273106 (28) Abnormal laboratory test result ICD Codes: R89.9 - Unspecified abnormal finding in specimens from other organs, systems and tissues SNOMED: 741998636 (29) Diabetes mellitus out of control ICD Codes: E11.9 - Diabetes mellitus out of control SNOMED: 565513351 (30) BPH (benign prostatic hyperplasia) ICD Codes: N40.0 - Benign prostatic hyperplasia without lower urinary tract symptoms SNOMED: 751095290 (31) Diabetes mellitus type 2 with complications ICD Codes: E11.8 - Type 2 diabetes mellitus with unspecified complications SNOMED: 54906983, 073326043 (32) Abdominal wall cellulitis ICD Codes: L03.311 - Cellulitis of abdominal wall SNOMED: 18452257 (33) G tube feedings ICD Codes: Z93.1 - G tube feedings SNOMED: 990354794 (34) Toxic metabolic encephalopathy ICD Codes: G92 - Toxic encephalopathy SNOMED: 705542792 (35) Peters catheter problem ICD Codes: T83.9XXA - Unsp complication of genitourinary prosth dev/grft, init SNOMED: 980406585 (36) Deep tissue injury ICD Codes: T14.8XXA - Other injury of unspecified body region, initial encounter SNOMED: 470362914 (37) Stage 4 skin ulcer of sacral region ICD Codes: L98.429 - Non-pressure chronic ulcer of back with unspecified severity SNOMED: 09464295, 094398346 (38) Acute urinary tract infection (39) Acute urinary tract infection (40) Lactic acidosis (41) Septicemia (42) Septicemia (43) Septicemia (44) Urosepsis (45) Urosepsis (46) tachycardia Raheem Kolb Mar 16, 2020 09:36
[2020-03-16] MEDS: Vancomycin 1.25gm/NS Premix q24h IVPB SCH (09:49)
[2020-03-16] MEDS: Levemir Flexpen SUBQ SCH ×2 (09:51→17:17)
[2020-03-16 12:00] VITALS: BP 118/66
--- NOTE | 2020-03-16 13:15 | Consultation ---
DATE OF CONSULTATION: 03/16/2020 INFECTIOUS DISEASES CONSULTATION CONSULTING PHYSICIAN: Kuldip Rosado MD. This consult is for coverage of Jesica Alegria MD. PRIMARY ATTENDING PHYSICIAN: Jeremiah Perkins MD. REASON FOR CONSULTATION: Sepsis, pneumonia. HISTORY OF PRESENT ILLNESS: This is a 69-year-old male, admitted yesterday from a nursing facility because of increasing white cell count. The patient also had a temperature of 100 while in hospital. White count still in hospital was 25.6. He was recently discharged from the hospital on February 18 and living in the nursing facility. PAST MEDICAL HISTORY: Significant for hypertension, COPD, diabetes mellitus, osteomyelitis of right hip, anoxic encephalopathy, BPH, ventilator-dependent respiratory failure, seizure disorder, and anemia. MEDICATIONS: Colace, fluconazole, finasteride, vitamin C, Zosyn, hydralazine, Flomax, vancomycin, insulin, Levemir, amlodipine, insulin aspart, sodium phosphate enema, magnesium hydroxide. SOCIAL HISTORY: , senior care resident. No other history obtainable by the patient. REVIEW OF SYSTEMS: Unobtainable. PHYSICAL EXAMINATION: VITAL SIGNS: Temperature is 97.9, pulse 90, blood pressure 131/60. GENERAL APPEARANCE: Seems to have normal weight. HEAD AND NECK: Status post tracheostomy. Poor dentition. HEART: Normal rate. Has left arm PICC line. LUNGS: On ventilator, few rhonchi. ABDOMEN: Distended. G-tube in place. EXTREMITIES: No edema. LABORATORY AND DIAGNOSTIC DATA: WBC 25.6, hemoglobin 9.5, hematocrit 30.3, platelet is 362. Sodium 140, potassium 3.7, chloride 104, bicarb 30, BUN 21, creatinine 0.9. COVID test negative. Urine culture negative so far. Chest x-ray showed consolidation in the lower lung, this may be atelectasis versus pneumonia. UA showed wbc of 15 to 20, rbc of 5 to 10, leukocyte esterase 3+. 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 RECOMMENDATION: We will continue with vancomycin, Zosyn, fluconazole. We will follow up the cultures and ask for sputum culture. At the end of my exam, I thank Dr. Perkins for involving me in the care of this patient. Kuldip Rosado M.D. DR: PRIYA JOB#: [id number] CC: MARIA DEL CARMEN
[2020-03-16 16:00] VITALS: BP 111/64
--- NOTE | 2020-03-16 18:12 | Diagnostic Imaging Report ---
Indication: Abdominal pain, leukocytosis, decubitus ulcer abdominal pain Technique: Spiral acquisitions obtained through the abdomen and pelvis. No oral contrast utilized, per emergency room physician request No IV contrast utilized, per referring physician request.. Multiplanar reconstructions were generated. Total dose length product 10:15 mGycm. CTDIvol(s) 14, 9 mGy. Dose reduction achieved using automated exposure control Comparison: 02/17/2020 Findings: Again demonstrated is a wound in the right ischial region. This appears to contain some packing material. This appears to penetrate much less deeply than on the prior study, as no deep gas bubbles are evident. Density in the area appears to be scar tissue rather than fluid. Again demonstrated is erosion of the adjacent ischium, extent of which appears to be unchanged. Again demonstrated is extensive heterotopic ossification and degenerative change about the left hip. Again demonstrated is a left inguinal hernia that contains only fat. Again demonstrated is broad-based diastasis of the rectus abdominis tendon above the umbilicus, bordering on herniation. There is also a tiny fat-containing umbilical hernia. There is evidence of prior surgery in the region. There is no evidence of obstruction. There is distention of the rectum by feces. This appears less severe than on the prior study. Again demonstrated is extensive colonic diverticulosis. No evidence of diverticulitis. What appears to be a short normal appendix is evident. No small bowel distention. No free or loculated intraperitoneal gas or fluid is evident. No small bowel wall thickening. There is a gastrostomy in place which appears well-positioned. There is evidence of prior gastric surgery. The distal esophagus and duodenum are unremarkable. The gallbladder contains gallstones. Lack of IV contrast limits assessment of the solid organs. The liver is grossly unremarkable. The pancreas is atrophic and nearly completely fatty replaced. The spleen is not demonstrated, although there is evidence of some scattered splenic tissue in the left upper quadrant. The adrenals are unremarkable. Right renal staghorn calculi and other calyceal calculi are again demonstrated. Left renal parapelvic cyst or cysts are again demonstrated. A small peripheral calyceal calculus is also demonstrated in the left kidney. No retroperitoneal or mesenteric mass or adenopathy. The bladder is empty, contains a Peters catheter. Calculi are again demonstrated within the bladder. The prostate is enlarged. The lung bases demonstrate considerable consolidation involving the right lower lobe. There is also a component of volume loss. There is some posterior dependent atelectasis of the left lung as well. The bones demonstrate degenerative spondylosis changes, appearing similar to the previous study. There is a stable mild compression fracture deformity of the L3 vertebral body. Impression: Right ischial region wound, consistent with known clinical history of decubitus changes in this area. This appears to demonstrate some interim healing since previous study. Stable erosive changes of the adjacent ischium. No definite evidence of abscess, although evaluation for such is limited given the absence of IV contrast administration. Evidence of rectal fecal impaction, less severe than on the previous study. Diverticulosis, also previously reported Cholelithiasis, also previously reported Unchanged right renal staghorn and other calculi, small left renal calculus Right lower lobe consolidation and volume loss. Less extensive atelectasis of the posterior left lung Broad-based diastasis of the rectus abdominis tendon bordering on herniation, nonobstructive, also previously reported Absent spleen. There is evidence of some scattered splenic tissue in the left upper quadrant, also previously reported Other findings as noted, including gastrostomy, evidence of prior gastric surgery, atrophic fatty replaced pancreas, left renal parapelvic cyst or cysts, Peters catheter, enlarged prostate, bladder calculi, degenerative spondylosis, stable L3 vertebral body mild compression fracture deformity The CT scanner at [facility] is accredited by the [place] [employer] and the scans are performed using protocols designed to limit radiation exposure to as low as reasonably achievable to attain images of sufficient resolution adequate for diagnostic evaluation.
[2020-03-16] MEDS: Dyna-Hex 2% Top Sol 2oz TOPIC SCH (19:55)
[2020-03-16 20:00] VITALS: BP 130/73
[2020-03-16] MEDS: Doxazosin 1mg Tab GT SCH (21:20)
[2020-03-16] MEDS: Tamsulosin 0.4mg cap ORAL SCH (21:20)
--- NOTE | 2020-03-16 21:40 | General Progress Note ---
Subjective Allergies: Coded Allergies: No Known Allergies (Unverified , 02/11/13) Objective Last 24 Hour Vital Signs Date Time Temp Pulse Resp B/P (MAP) Pulse Ox O2 Delivery O2 Flow Rate FiO2 03/16/20 21:20 87 119/64 03/16/20 19:11 90 24 40 03/16/20 17:17 81 108/66 03/16/20 16:00 40 03/16/20 16:00 81 03/16/20 16:00 98.4 79 23 111/64 (80) 98 03/16/20 16:00 Mechanical Ventilator 03/16/20 15:00 82 19 40 03/16/20 14:00 108/56 03/16/20 12:00 Mechanical Ventilator 03/16/20 12:00 98.8 76 16 118/66 (83) 97 03/16/20 12:00 73 03/16/20 12:00 40 03/16/20 11:10 70 16 40 03/16/20 08:37 90 131/60 03/16/20 08:37 90 131/60 03/16/20 08:00 40 03/16/20 08:00 Mechanical Ventilator 03/16/20 08:00 97.9 90 21 131/60 (83) 99 03/16/20 08:00 81 03/16/20 07:25 82 16 40 03/16/20 05:09 106/59 03/16/20 04:00 98.1 72 15 103/61 (75) 100 03/16/20 04:00 Mechanical Ventilator 03/16/20 04:00 40 03/16/20 03:36 79 03/16/20 03:18 87 16 40 03/16/20 00:00 99.3 76 16 103/54 (70) 98 03/16/20 00:00 Mechanical Ventilator 03/15/20 23:48 73 03/15/20 23:18 76 16 40 03/15/20 22:26 Mechanical Ventilator 03/15/20 22:00 104/61 Intake and Output 03/15/20 03/16/20 19:00 07:00 Intake Total 205 ml 856.663 ml Output Total 500 ml Balance -295 ml 856.663 ml Intake Oral 100 ml Free Water 30 ml 100 ml IV Total 476.663 ml Tube Feeding 75 ml 280 ml Output Urine Total 500 ml # Bowel Movements 2 Laboratory Tests 03/16/20 05:08: POC Whole Blood Glucose 148H 03/16/20 09:50: POC Whole Blood Glucose 186H 03/16/20 11:22: POC Whole Blood Glucose 172H 03/16/20 16:06: POC Whole Blood Glucose 111H 03/16/20 20:10: Vancomycin Level Trough 24.4H Height (Feet): 5 Height (Inches): 10.00 Weight (Pounds): 207 Assessment/Plan Assessment/Plan: Assessment - Anoxic encephalopathy - dysphagia / s/p GT - GT site acid dermatitis - Resp failure, s/p trach - CVA - HTN - DM - Leukocytosis, sepsis - Osteo - Poor px Recommendations - GT changed at bedside - resume GT feeds - will monitor GT for leaking - GT site care - Elevate HOB - Abx Thank you Rose Carranza MD has a history of anoxic encephalopathy, stroke, hypertension, and diabetes. He has a history of chronic respiratory failure. He was transferred because of fevers, leukocytosis, and congestion. He was recently hospitalized with pneumonia as well as a sacral osteomyelitis. He has been on IV antibiotic therapy. Despite antibiotic therapy, he has had worsening leukocytosis. Recently, he became increasingly more short of breath and was placed from trach collar onto the vent. On evaluation in the emergency room, the patient had evidence of bilateral lower lobe pneumonia. He also had evidence of Rose Carranza MD Mar 16, 2020 21:39
[2020-03-17] VITALS: BP 121/72
--- NOTE | 2020-03-17 02:30 | Consultation ---
DATE OF CONSULTATION: 03/16/2020 GASTROENTEROLOGY CONSULTATION CHIEF COMPLAINT: I was asked to see this patient by Dr. Jeremiah Perkins for evaluation of gastrostomy site complication and dysphagia. HISTORY OF PRESENT ILLNESS: The patient is an unfortunate 69-year-old man who has a history of anoxic encephalopathy with all the complications that ensues it including tracheostomy and gastrostomy tube placement, who was brought into the hospital due to sepsis. During the course of his hospitalization, he has been also found to have a significant amount of leakage around his gastrostomy site with acid dermatitis and, therefore, this consultation was generated. The patient himself was unable to provide any history and most of the information is only available from the chart. The patient has been tolerating his tube feedings, but the leakage nonetheless has continued. PAST MEDICAL HISTORY: History of anoxic encephalopathy, stroke, hypertension, diabetes, status post tracheostomy tube placement, status post gastrostomy tube placement. FAMILY HISTORY: Noncontributory. SOCIAL HISTORY: The patient is from a alf. There is otherwise no history of smoking or drinking available to me. REVIEW OF SYSTEMS: Otherwise unobtainable. MEDICATIONS: See the chart list for details. PHYSICAL EXAMINATION: GENERAL: A debilitated man, seen in his room. HEENT: Normocephalic and atraumatic. There is a tracheostomy in place. CHEST: Coarse breath sounds. CARDIOVASCULAR: Regular rate. ABDOMEN: Soft with a gastrostomy tube that had some leakage and acid dermatitis around this for a margin of approximately 4 cm. There is also anterior abdominal midline wound with a wound hernia that would bulge with the patient's respiratory movements. The gastrostomy tube was removed and replaced with a 20-Setswana gastrostomy catheter, which was verified by bedside technique. EXTREMITIES: No edema. LABORATORY DATA: Noted. ASSESSMENT: This patient has a gastrostomy tube, which is now changed. There was a significant amount of leakage around the gastrostomy site with resultant acid dermatitis. The barrier ointment placement along with proper G-tube positioning was explained to the nurse and techniques were reviewed. I will monitor G-tube site on a daily basis. In the meantime, tube feedings can be resumed. RECOMMENDATIONS: Per above discussion and per orders written in the chart. Thank you for asking me to participate in the care of this patient. Rose Carranza M.D. DR: ELIZABETH JOB#: [id number] CC:
[2020-03-17 03:53] LABS: EOSINOPHILS % (AUTO) 4.3 % (0.0-3.0); HEMATOCRIT 26.9 % (42.0-52.0); HEMOGLOBIN 8.6 G/DL (14.2-18.0); LYMPHOCYTES % (AUTO) 12.7 % (20.0-45.0); MEAN CORPUSCULAR VOLUME 82 FL (80-99); MONOCYTES % (AUTO) 8.4 % (1.0-10.0); NEUTROPHILS % (AUTO) 73.7 % (45.0-75.0); PLATELET COUNT 380 K/UL (150-450); RED BLOOD COUNT 3.28 M/UL (4.70-6.10); RED CELL DISTRIBUTION WIDTH 16.6 % (11.6-14.8); WHITE BLOOD COUNT 17.7 K/UL (4.8-10.8)
--- NOTE | 2020-03-17 03:53 | Cardiology Progress Note ---
Subjective DATE OF SERVICE: Mar 16, 2020 Objective Last 24 Hour Vital Signs Date Time Temp Pulse Resp B/P (MAP) Pulse Ox O2 Delivery O2 Flow Rate FiO2 03/17/20 02:50 72 18 40 03/17/20 00:00 Mechanical Ventilator 03/17/20 00:00 98.2 82 18 121/72 (88) 100 03/16/20 23:30 79 03/16/20 22:16 84 22 40 03/16/20 22:07 111/65 03/16/20 21:20 87 119/64 03/16/20 20:00 98.2 91 22 130/73 (92) 97 03/16/20 20:00 Mechanical Ventilator 03/16/20 20:00 87 03/16/20 20:00 40 03/16/20 19:11 90 24 40 03/16/20 17:17 81 108/66 03/16/20 16:00 40 03/16/20 16:00 81 03/16/20 16:00 98.4 79 23 111/64 (80) 98 03/16/20 16:00 Mechanical Ventilator 03/16/20 15:00 82 19 40 03/16/20 14:00 108/56 03/16/20 12:00 Mechanical Ventilator 03/16/20 12:00 98.8 76 16 118/66 (83) 97 03/16/20 12:00 73 03/16/20 12:00 40 03/16/20 11:10 70 16 40 03/16/20 08:37 90 131/60 03/16/20 08:37 90 131/60 03/16/20 08:00 40 03/16/20 08:00 Mechanical Ventilator 03/16/20 08:00 97.9 90 21 131/60 (83) 99 03/16/20 08:00 81 03/16/20 07:25 82 16 40 03/16/20 05:09 106/59 03/16/20 04:00 98.1 72 15 103/61 (75) 100 03/16/20 04:00 Mechanical Ventilator 03/16/20 04:00 40 HEENT: Mechanically Ventilated, Thick Trach secretions RHYTHM: NSR, ST LUNGS: bilateral rhonchi CARDIAC: regular rhythm, normal S1 and S2, rapid rate, tachycardia ABDOMEN: non tender, soft, no organomegaly, G-Tube intact EXTREMITIES: non-tender, No edema, other - sacral decub; Neuro unresponsive Laboratory Tests Test 03/16/20 05:08 03/16/20 09:50 03/16/20 11:22 03/16/20 16:06 POC Whole Blood Glucose 148 MG/DL (74-106) H 186 MG/DL (74-106) H 172 MG/DL (74-106) H 111 MG/DL (74-106) H Test 03/16/20 20:10 03/17/20 02:40 Vancomycin Level Trough 24.4 ug/mL (5.0-12.0) H White Blood Count Pending Red Blood Count Pending Hemoglobin Pending Hematocrit Pending Mean Corpuscular Volume Pending Mean Corpuscular Hemoglobin Pending Mean Corpuscular Hemoglobin Concent Pending Red Cell Distribution Width Pending Platelet Count Pending Mean Platelet Volume Pending Neutrophils (%) (Auto) Pending Lymphocytes (%) (Auto) Pending Monocytes (%) (Auto) Pending Eosinophils (%) (Auto) Pending Basophils (%) (Auto) Pending Erythrocyte Sedimentation Rate Pending Prothrombin Time Pending Prothromb Time International Ratio Pending Activated Partial Thromboplast Time Pending Sodium Level Pending Potassium Level Pending Chloride Level Pending Carbon Dioxide Level Pending Blood Urea Nitrogen Pending Creatinine Pending Estimat Glomerular Filtration Rate Pending Glucose Level Pending Lactic Acid Level Pending Calcium Level Pending Total Bilirubin Pending Aspartate Amino Transf (AST/SGOT) Pending Alanine Aminotransferase (ALT/SGPT) Pending Alkaline Phosphatase Pending C-Reactive Protein, Quantitative Pending Total Protein Pending Albumin Pending Globulin Pending Amylase Level Pending Lipase Pending Random Vancomycin Level Pending Microbiology Date/Time Source Procedure Growth Status 03/15/20 12:00 Indwelling Cath Urine Culture - Preliminary NO GROWTH Resulted 03/15/20 12:00 Nasopharynx SARS-CoV-2 RdRp Gene Assay - Final Complete Assessment/Plan Assessment/Plan Severe sepsis Respiratory failure with trach Chronic encephalopathy HC assoc PNA Hypertension/HHC Acute/chronic diastolic CHF Anemia Dysphagia with GTube Abx Vent Resp Rx Trend BNP; adjust fluids accordingly DVT prophyl Nutritional support by Brady Felipe MD Mar 17, 2020 03:53
[2020-03-17 04:00] VITALS: BP 133/74
[2020-03-17 04:45] LABS: ALANINE AMINOTRANSFERASE 22 U/L (12-78); ALBUMIN 1.9 G/DL (3.4-5.0); ALBUMIN/GLOBULIN RATIO 0.4 (1.0-2.7); ALKALINE PHOSPHATASE 83 U/L (46-116); AMYLASE 16 U/L (25-115); ANION GAP 7 mmol/L (5-15); ASPARTATE AMINO TRANSFERASE 13 U/L (15-37); BILIRUBIN,TOTAL 0.3 MG/DL (0.2-1.0); BLOOD UREA NITROGEN 17 mg/dL (7-18); CALCIUM 8.7 MG/DL (8.5-10.1); CARBON DIOXIDE 28 MMOL/L (21-32); CHLORIDE 109 MMOL/L (98-107); CREATININE 0.9 MG/DL (0.55-1.30); POTASSIUM 4.1 MMOL/L (3.5-5.1); SODIUM 144 MMOL/L (136-145)
[2020-03-17] MEDS: HydrALAZINE 50mg tab GT SCH ×3 (05:35→23:13)
[2020-03-17] MEDS: Piperacillin/Tazobactam 3.375 GM in NS 110 ML IVPB SCH ×3 (05:35→23:10)
[2020-03-17] MEDS: NovoLOG Insulin Flexpen SUBQ SCH ×4 (06:20→23:41)
--- NOTE | 2020-03-17 07:57 | Pulmonology Progress Note ---
Subjective ROS Limited/Unobtainable: Yes Allergies: Coded Allergies: No Known Allergies (Unverified , 02/11/13) Subjective cultures noted all reviewed off vent Objective Last 24 Hour Vital Signs Date Time Temp Pulse Resp B/P (MAP) Pulse Ox O2 Delivery O2 Flow Rate FiO2 03/17/20 05:35 126/66 03/17/20 04:00 Mechanical Ventilator 03/17/20 04:00 97.9 90 18 133/74 (93) 95 03/17/20 04:00 40 03/17/20 03:26 71 03/17/20 02:50 72 18 40 03/17/20 00:00 Mechanical Ventilator 03/17/20 00:00 40 03/17/20 00:00 98.2 82 18 121/72 (88) 100 03/16/20 23:30 79 03/16/20 22:16 84 22 40 03/16/20 22:07 111/65 03/16/20 21:20 87 119/64 03/16/20 20:00 98.2 91 22 130/73 (92) 97 03/16/20 20:00 Mechanical Ventilator 03/16/20 20:00 87 03/16/20 20:00 40 03/16/20 19:11 90 24 40 03/16/20 17:17 81 108/66 03/16/20 16:00 40 03/16/20 16:00 81 03/16/20 16:00 98.4 79 23 111/64 (80) 98 03/16/20 16:00 Mechanical Ventilator 03/16/20 15:00 82 19 40 03/16/20 14:00 108/56 03/16/20 12:00 Mechanical Ventilator 03/16/20 12:00 98.8 76 16 118/66 (83) 97 03/16/20 12:00 73 03/16/20 12:00 40 03/16/20 11:10 70 16 40 03/16/20 08:37 90 131/60 03/16/20 08:37 90 131/60 03/16/20 08:00 40 03/16/20 08:00 Mechanical Ventilator 03/16/20 08:00 97.9 90 21 131/60 (83) 99 03/16/20 08:00 81 Intake and Output 0 03/16/20 03/17/20 19:00 07:00 Intake Total 607.500 ml 702.5 ml Output Total 500 ml 1400 ml Balance 107.500 ml -697.5 ml IV Total 357.500 ml 137.5 ml Tube Feeding 250 ml 395 ml Other 170 ml Output Urine Total 500 ml 1400 ml # Bowel Movements 2 2 Objective WDWN NAD trach clear breath sounds bilaterally without rhonchi or wheeze [id number] without MRG NABS nontender no distention; gt no CCE nonfocal poor LOC krishnan Microbiology Date/Time Source Procedure Growth Status 03/16/20 16:05 Sputum Gram Stain - Final Resulted 03/16/20 16:05 Sputum Sputum Culture Pending Resulted 03/15/20 12:00 Indwelling Cath Urine Culture - Final Yeast Species Streptococcus Viridans Complete 03/15/20 12:00 Nasal Nares MRSA Culture - Final NO METHICILLIN RESISTANT STAPH AUREUS... Complete 03/15/20 12:00 Nasopharynx SARS-CoV-2 RdRp Gene Assay - Final Complete 03/15/20 12:00 Blood Blood Culture - Preliminary NO GROWTH AFTER 24 HOURS Resulted 03/15/20 12:00 Blood Blood Culture - Preliminary NO GROWTH AFTER 24 HOURS Resulted Laboratory Tests 03/16/20 09:50: POC Whole Blood Glucose 186H 03/16/20 11:22: POC Whole Blood Glucose 172H 03/16/20 16:06: POC Whole Blood Glucose 111H 03/16/20 20:10: Vancomycin Level Trough 24.4H 03/17/20 02:40: White Blood Count 17.7H, Red Blood Count 3.28L, Hemoglobin 8.6L, Hematocrit 26.9L, Mean Corpuscular Volume 82, Mean Corpuscular Hemoglobin 26.2L, Mean Corpuscular Hemoglobin Concent 31.9L, Red Cell Distribution Width 16.6H, Platelet Count 380, Mean Platelet Volume 10.4H, Neutrophils (%) (Auto) 73.7, Lymphocytes (%) (Auto) 12.7L, Monocytes (%) (Auto) 8.4, Eosinophils (%) (Auto) 4.3H, Basophils (%) (Auto) 1.0, Erythrocyte Sedimentation Rate 126H, Prothrombin Time 11.3, Prothromb Time International Ratio 1.0, Activated Partial Thromboplast Time 33, Sodium Level 144, Potassium Level 4.1, Chloride Level 109H , Carbon Dioxide Level 28, Anion Gap 7, Blood Urea Nitrogen 17, Creatinine 0.9, Estimat Glomerular Filtration Rate > 60, Glucose Level 101, Lactic Acid Level 0.90, Calcium Level 8.7, Total Bilirubin 0.3, Aspartate Amino Transf (AST/SGOT) 13L, Alanine Aminotransferase (ALT/SGPT) 22, Alkaline Phosphatase 83, C-Reactive Protein, Quantitative 21.8H, Total Protein 6.7, Albumin 1.9L, Globulin 4.8, Albumin/Globulin Ratio 0.4L, Amylase Level 16L, Lipase 38L, Random Vancomycin Level 20.0 03/17/20 04:00: Pro-B-Type Natriuretic Peptide 459H 03/17/20 05:24: POC Whole Blood Glucose 107H Current Medications Medications (Trade) Dose Ordered Sig/Magda Route PRN Reason Start Time Stop Time Status Last Admin Dose Admin Acetaminophen (Tylenol) 650 mg DAILY PRN ORAL pain mgt 03/15/20 16:00 04/14/20 15:59 03/15/20 20:15 Amlodipine Besylate (Norvasc) 5 mg BID GT 03/15/20 18:00 04/14/20 17:59 03/16/20 08:37 Ascorbic Acid (Vitamin C) 500 mg DAILY GT 03/16/20 09:00 04/15/20 08:59 03/16/20 08:37 Bisacodyl (Dulcolax) 10 mg DAILY PRN RECTAL Constipation 03/15/20 16:00 06/13/20 15:59 Calcium Carbonate (Calcium Carbonate) 650 mg DAILY GT 03/16/20 09:00 06/14/20 08:59 03/16/20 08:37 Chlorhexidine Gluconate (Ingris-Hex 2%) 1 applic DAILY@1999 TOPIC 03/16/20 20:00 06/14/20 19:59 03/16/20 19:55 Clonidine HCl (Catapres Tab) 0.1 mg Q6H PRN GT HTN SBP > 160 03/15/20 16:00 06/13/20 15:59 Dextrose (Dextrose 50%) 25 ml Q30M PRN IV Hypoglycemia 03/15/20 16:00 06/13/20 15:59 Dextrose (Dextrose 50%) 50 ml Q30M PRN IV Hypoglycemia 03/15/20 16:00 06/13/20 15:59 Docusate Sodium (Colace) 100 mg TWICE A DAY GT 03/16/20 09:00 04/15/20 08:59 03/16/20 08:37 Doxazosin Mesylate (Cardura) 2 mg BEDTIME GT 03/15/20 21:00 04/14/20 20:59 03/16/20 21:20 Finasteride (Proscar) 5 mg DAILY ORAL 03/16/20 09:00 06/14/20 08:59 03/16/20 08:37 Fluconazole (Diflucan) 100 mg DAILY GT 03/16/20 09:00 03/23/20 08:59 03/16/20 08:37 Heparin Sodium (Porcine) (Heparin 5000 units/ml) 5,000 units EVERY 12 HOURS SUBQ 03/15/20 21:00 04/29/20 20:59 03/16/20 21:20 Hydralazine HCl (Apresoline) 50 mg EVERY 8 HOURS GT 03/15/20 22:00 06/13/20 21:59 03/17/20 05:35 Insulin Aspart (NovoLOG) BEFORE MEALS AND HS SUBQ 03/15/20 16:30 06/13/20 16:29 03/16/20 05:11 Insulin Detemir (Levemir) 30 units BID SUBQ 03/15/20 18:00 06/13/20 17:59 03/16/20 17:17 Magnesium Hydroxide (Mom) 30 ml BEDTIME PRN GT Constipation 03/15/20 16:00 04/14/20 15:59 Metoprolol Tartrate (Lopressor) 25 mg EVERY 12 HOURS GT 03/15/20 21:00 06/13/20 20:59 03/16/20 21:20 Piperacillin Sod/ Tazobactam Sod 3.375 gm/Sodium Chloride 110 ml @ 27.5 mls/hr EVERY 8 HOURS IVPB 03/15/20 22:00 03/20/20 21:59 03/17/20 05:35 Saccharomyces Boulardii (Florastor) 250 mg TWICE A DAY GT 03/15/20 18:00 06/13/20 17:59 03/16/20 17:16 Sodium Phosphate (Fleet's Sodium Phosl Enema) 133 ml DAILYPRN PRN RECTAL Constipation 03/15/20 16:00 04/14/20 15:59 Tamsulosin HCl (Flomax) 0.4 mg BEDTIME ORAL 03/15/20 21:00 04/14/20 20:59 03/16/20 21:20 Vancomycin HCl (Vanco pharmacy to dose) 1 ea DAILY PRN MISC Per rx protocol 03/15/20 16:00 04/14/20 15:59 Vancomycin HCl 1 gm/Dextrose 275 ml @ 183.708 mls/hr Q12HR IVPB 03/17/20 09:00 03/22/20 08:59 Zinc Oxide (Zinc Oxide) 1 applic THREE TIMES A DAY TOPIC 03/15/20 18:00 06/13/20 17:59 03/16/20 17:18 Assessment/Plan Assessment/Plan IMPRESSION respiratory failure chronic osteomyelitis leukocytosis anemia trach GT chronic encephalopathy PLAN IV antibiotics noted adjust based on culture results care noted respiratory care monitor oxygen needs wound care as is and position change feeds off load monitor HH transfuse PRN monitor wbc impression, plan, and exam edited and reviewed in detail care discussed with Silver Correa MD Mar 17, 2020 07:57
[2020-03-17 08:00] VITALS: BP 136/87
[2020-03-17] MEDS ORDERED: Vancomycin 1gm in D5W 275ml IVPB SCH (09:00)
--- NOTE | 2020-03-17 09:07 | General Progress Note ---
Subjective ROS Limited/Unobtainable: Yes Constitutional: Reports: malaise, weakness HEENT: Reports: no symptoms Cardiovascular: Reports: no symptoms Respiratory: Reports: shortness of breath, sputum Gastrointestinal/Abdominal: Reports: difficulty swallowing Genitourinary: Reports: no symptoms Neurologic/Psychiatric: Reports: pre-existing deficit Endocrine: Reports: no symptoms Hematologic/Lymphatic: Reports: anemia Allergies: Coded Allergies: No Known Allergies (Unverified , 02/11/13) All Systems: reviewed and negative except above Subjective no events. remains stable on the vent. no fevers. tolerating feeds. poorly responsive at baseline. on iv abx. yst in the urine. Objective Last 24 Hour Vital Signs Date Time Temp Pulse Resp B/P (MAP) Pulse Ox O2 Delivery O2 Flow Rate FiO2 03/17/20 08:00 98.2 91 18 136/87 (103) 98 03/17/20 08:00 Mechanical Ventilator 03/17/20 08:00 40 03/17/20 05:35 126/66 03/17/20 04:00 Mechanical Ventilator 03/17/20 04:00 97.9 90 18 133/74 (93) 95 03/17/20 04:00 40 03/17/20 03:26 71 03/17/20 02:50 72 18 40 03/17/20 00:00 Mechanical Ventilator 03/17/20 00:00 40 03/17/20 00:00 98.2 82 18 121/72 (88) 100 03/16/20 23:30 79 03/16/20 22:16 84 22 40 03/16/20 22:07 111/65 03/16/20 21:20 87 119/64 03/16/20 20:00 98.2 91 22 130/73 (92) 97 03/16/20 20:00 Mechanical Ventilator 03/16/20 20:00 87 03/16/20 20:00 40 03/16/20 19:11 90 24 40 03/16/20 17:17 81 108/66 03/16/20 16:00 40 03/16/20 16:00 81 03/16/20 16:00 98.4 79 23 111/64 (80) 98 03/16/20 16:00 Mechanical Ventilator 03/16/20 15:00 82 19 40 03/16/20 14:00 108/56 03/16/20 12:00 Mechanical Ventilator 03/16/20 12:00 98.8 76 16 118/66 (83) 97 03/16/20 12:00 73 03/16/20 12:00 40 03/16/20 11:10 70 16 40 Intake and Output 03/16/20 03/17/20 19:00 07:00 Intake Total 607.500 ml 702.5 ml Output Total 500 ml 1400 ml Balance 107.500 ml -697.5 ml IV Total 357.500 ml 137.5 ml Tube Feeding 250 ml 395 ml Other 170 ml Output Urine Total 500 ml 1400 ml # Bowel Movements 2 2 Laboratory Tests 03/16/20 09:50: POC Whole Blood Glucose 186H 03/16/20 11:22: POC Whole Blood Glucose 172H 03/16/20 16:06: POC Whole Blood Glucose 111H 03/16/20 20:10: Vancomycin Level Trough 24.4H 03/17/20 02:40: White Blood Count 17.7H, Red Blood Count 3.28L, Hemoglobin 8.6L, Hematocrit 26.9L, Mean Corpuscular Volume 82, Mean Corpuscular Hemoglobin 26.2L, Mean Corpuscular Hemoglobin Concent 31.9L, Red Cell Distribution Width 16.6H, Platelet Count 380, Mean Platelet Volume 10.4H, Neutrophils (%) (Auto) 73.7, Lymphocytes (%) (Auto) 12.7L, Monocytes (%) (Auto) 8.4, Eosinophils (%) (Auto) 4.3H, Basophils (%) (Auto) 1.0, Erythrocyte Sedimentation Rate 126H, Prothrombin Time 11.3, Prothromb Time International Ratio 1.0, Activated Partial Thromboplast Time 33, Sodium Level 144, Potassium Level 4.1, Chloride Level 109H , Carbon Dioxide Level 28, Anion Gap 7, Blood Urea Nitrogen 17, Creatinine 0.9, Estimat Glomerular Filtration Rate > 60, Glucose Level 101, Lactic Acid Level 0.90, Calcium Level 8.7, Total Bilirubin 0.3, Aspartate Amino Transf (AST/SGOT) 13L, Alanine Aminotransferase (ALT/SGPT) 22, Alkaline Phosphatase 83, C-Reactive Protein, Quantitative 21.8H, Total Protein 6.7, Albumin 1.9L, Globulin 4.8, Albumin/Globulin Ratio 0.4L, Amylase Level 16L, Lipase 38L, Random Vancomycin Level 20.0 03/17/20 04:00: Pro-B-Type Natriuretic Peptide 459H 03/17/20 05:24: POC Whole Blood Glucose 107H Height (Feet): 5 Height (Inches): 10.00 Weight (Pounds): 207 General Appearance: WD/WN, no apparent distress EENT: PERRL/EOMI, normal ENT inspection Neck: non-tender, normal alignment, supple Cardiovascular: normal peripheral pulses, normal rate Respiratory/Chest: chest wall non-tender, lungs clear, normal breath sounds Abdomen: normal bowel sounds, non tender, soft, no organomegaly Edema: no edema noted Arm (L), no edema noted Arm (R) Neurologic: disoriented, unresponsive, aphasia Skin: normal pigmentation Lymphatic: normal anterior cervical (L), normal anterior cervical (R) Assessment/Plan Problem List: (1) Anemia ICD Codes: D64.9 - Anemia, unspecified SNOMED: 711867600 (2) Decubital ulcer ICD Codes: L89.90 - Pressure ulcer of unspecified site, unspecified stage SNOMED: 117979972 (3) Leukocytosis ICD Codes: D72.829 - Elevated white blood cell count, unspecified SNOMED: 516473261 (4) UTI (urinary tract infection) ICD Codes: N39.0 - Urinary tract infection, site not specified SNOMED: 88066279 (5) Pneumonia ICD Codes: J18.9 - Pneumonia, unspecified organism SNOMED: 390536529 (6) Urinary retention ICD Codes: R33.9 - Retention of urine, unspecified SNOMED: 864960803 (7) Pneumonia ICD Codes: J18.9 - Pneumonia, unspecified organism SNOMED: 578989284 (8) Encephalopathy chronic ICD Codes: G93.49 - Encephalopathy chronic SNOMED: 38854444 (9) Diabetes mellitus out of control ICD Codes: E11.9 - Diabetes mellitus out of control SNOMED: 572067293 (10) BPH (benign prostatic hyperplasia) ICD Codes: N40.0 - Benign prostatic hyperplasia without lower urinary tract symptoms SNOMED: 749076455 (11) Stage 4 skin ulcer of sacral region ICD Codes: L98.429 - Non-pressure chronic ulcer of back with unspecified severity SNOMED: 00720095, 265324422 (12) Septicemia (13) Urosepsis Status: stable Assessment/Plan: cont iv abx follow up cultures vent support wean as able suctioning resp rx wound care gt feeds monitor labs insulin coverage d/w Jeremiah Roberts MD Mar 17, 2020 09:07
[2020-03-17] MEDS: Calcium Carbonate 650mg Tab GT SCH (09:19)
[2020-03-17] MEDS: Docusate 100mg/10ml Liq GT SCH ×2 (09:19→18:40)
[2020-03-17] MEDS: Ascorbic Acid 500mg tab GT SCH (09:20)
[2020-03-17] MEDS: Fluconazole 100mg tab GT SCH (09:22)
[2020-03-17] MEDS: Zinc Oxide Oint 2oz TOPIC SCH ×3 (09:22→18:41)
[2020-03-17] MEDS: Levemir Flexpen SUBQ SCH ×2 (09:26→18:42)
[2020-03-17] MEDS: Heparin 5000 units/ml inj SUBQ SCH ×2 (09:27→23:08)
--- NOTE | 2020-03-17 11:37 | Infectious Diseases Prog Note ---
"Assessment/Plan Assessment/Plan antibiotics : vancomycin iv, zosyn, fluconazole A 1. streptococcus | fungal UTI 2. pneumonia 3. respiratory failure 4. diabetes mellitus 5. hypertension 6. COPD P 1. continue vancomycin iv, zosyn, fluconazole 2. will follow up cultures Subjective ROS Limited/Unobtainable: Yes Allergies: Coded Allergies: No Known Allergies (Unverified , 02/11/13) Objective Last 24 Hour Vital Signs Date Time Temp Pulse Resp B/P (MAP) Pulse Ox O2 Delivery O2 Flow Rate FiO2 03/17/20 09:22 91 136/87 03/17/20 09:19 91 136/87 03/17/20 08:00 98.2 91 18 136/87 (103) 98 03/17/20 08:00 82 03/17/20 08:00 Mechanical Ventilator 03/17/20 08:00 40 03/17/20 07:47 87 17 40 03/17/20 05:35 126/66 03/17/20 04:00 Mechanical Ventilator 03/17/20 04:00 97.9 90 18 133/74 (93) 95 03/17/20 04:00 40 03/17/20 03:26 71 03/17/20 02:50 72 18 40 03/17/20 00:00 Mechanical Ventilator 03/17/20 00:00 40 03/17/20 00:00 98.2 82 18 121/72 (88) 100 03/16/20 23:30 79 03/16/20 22:16 84 22 40 03/16/20 22:07 111/65 03/16/20 21:20 87 119/64 03/16/20 20:00 98.2 91 22 130/73 (92) 97 03/16/20 20:00 Mechanical Ventilator 03/16/20 20:00 87 03/16/20 20:00 40 03/16/20 19:11 90 24 40 03/16/20 17:17 81 108/66 03/16/20 16:00 40 03/16/20 16:00 81 03/16/20 16:00 98.4 79 23 111/64 (80) 98 03/16/20 16:00 Mechanical Ventilator 03/16/20 15:00 82 19 40 03/16/20 14:00 108/56 03/16/20 12:00 Mechanical Ventilator 03/16/20 12:00 98.8 76 16 118/66 (83) 97 03/16/20 12:00 73 03/16/20 12:00 40 Height (Feet): 5 Height (Inches): 10.00 Weight (Pounds): 207 HEENT: status post trach Respiratory/Chest: lungs clear Cardiovascular: normal rate, regular rhythm, no gallop/murmur Abdomen: soft, non tender, other - GT Extremities: no edema, other - left arm PICC Microbiology Date/Time Source Procedure Growth Status 03/16/20 16:05 Sputum Gram Stain - Final Resulted 03/16/20 16:05 Sputum Sputum Culture Pending Resulted 03/15/20 12:00 Rectum VRE Culture - Final Enterococcus Faecalis - Vre Complete 03/15/20 12:00 Indwelling Cath Urine Culture - Final Yeast Species Streptococcus Viridans Complete 03/15/20 12:00 Nasal Nares MRSA Culture - Final NO METHICILLIN RESISTANT STAPH AUREUS... Complete 03/15/20 12:00 Nasopharynx SARS-CoV-2 RdRp Gene Assay - Final Complete 03/15/20 12:00 Blood Blood Culture - Preliminary NO GROWTH AFTER 24 HOURS Resulted 03/15/20 12:00 Blood Blood Culture - Preliminary NO GROWTH AFTER 24 HOURS Resulted Laboratory Tests Test 03/16/20 16:06 03/16/20 20:10 03/17/20 02:40 03/17/20 04:00 POC Whole Blood Glucose 111 MG/DL (74-106) H Vancomycin Level Trough 24.4 ug/mL (5.0-12.0) H White Blood Count 17.7 K/UL (4.8-10.8) H Red Blood Count 3.28 M/UL (4.70-6.10) L Hemoglobin 8.6 G/DL (14.2-18.0) L Hematocrit 26.9 % (42.0-52.0) L Mean Corpuscular Volume 82 FL (80-99) Mean Corpuscular Hemoglobin 26.2 PG (27.0-31.0) L Mean Corpuscular Hemoglobin Concent 31.9 G/DL (32.0-36.0) L Red Cell Distribution Width 16.6 % (11.6-14.8) H Platelet Count 380 K/UL (150-450) Mean Platelet Volume 10.4 FL (6.5-10.1) H Neutrophils (%) (Auto) 73.7 % (45.0-75.0) Lymphocytes (%) (Auto) 12.7 % (20.0-45.0) L Monocytes (%) (Auto) 8.4 % (1.0-10.0) Eosinophils (%) (Auto) 4.3 % (0.0-3.0) H Basophils (%) (Auto) 1.0 % (0.0-2.0) Erythrocyte Sedimentation Rate 126 MM/HR (0-20) H Prothrombin Time 11.3 SEC (9.30-11.50) Prothromb Time International Ratio 1.0 (0.9-1.1) Activated Partial Thromboplast Time 33 SEC (23-33) Sodium Level 144 MMOL/L (136-145) Potassium Level 4.1 MMOL/L (3.5-5.1) Chloride Level 109 MMOL/L (98-107) H Carbon Dioxide Level 28 MMOL/L (21-32) Anion Gap 7 mmol/L (5-15) Blood Urea Nitrogen 17 mg/dL (7-18) Creatinine 0.9 MG/DL (0.55-1.30) Estimat Glomerular Filtration Rate > 60 mL/min (>60) Glucose Level 101 MG/DL (74-106) Lactic Acid Level 0.90 mmol/L (0.4-2.0) Calcium Level 8.7 MG/DL (8.5-10.1) Total Bilirubin 0.3 MG/DL (0.2-1.0) Aspartate Amino Transf (AST/SGOT) 13 U/L (15-37) L Alanine Aminotransferase (ALT/SGPT) 22 U/L (12-78) Alkaline Phosphatase 83 U/L (46-116) C-Reactive Protein, Quantitative 21.8 mg/dL (0.00-0.90) H Total Protein 6.7 G/DL (6.4-8.2) Albumin 1.9 G/DL (3.4-5.0) L Globulin 4.8 g/dL Albumin/Globulin Ratio 0.4 (1.0-2.7) L Amylase Level 16 U/L (25-115) L Lipase 38 U/L (73-393) L Random Vancomycin Level 20.0 ug/mL Pro-B-Type Natriuretic Peptide 459 pg/mL (0-125) H Test 03/17/20 05:24 POC Whole Blood Glucose 107 MG/DL (74-106) H Current Medications Medications (Trade) Dose Ordered Sig/Magda Route PRN Reason Start Time Stop Time Status Last Admin Dose Admin Acetaminophen (Tylenol) 650 mg DAILY PRN ORAL pain mgt 03/15/20 16:00 04/14/20 15:59 03/15/20 20:15 Amlodipine Besylate (Norvasc) 5 mg BID GT 03/15/20 18:00 04/14/20 17:59 03/17/20 09:22 Ascorbic Acid (Vitamin C) 500 mg DAILY GT 03/16/20 09:00 04/15/20 08:59 03/17/20 09:20 Bisacodyl (Dulcolax) 10 mg DAILY PRN RECTAL Constipation 03/15/20 16:00 06/13/20 15:59 Calcium Carbonate (Calcium Carbonate) 650 mg DAILY GT 03/16/20 09:00 06/14/20 08:59 03/17/20 09:19 Chlorhexidine Gluconate (Ingris-Hex 2%) 1 applic DAILY@1999 TOPIC 03/16/20 20:00 06/14/20 19:59 03/16/20 19:55 Clonidine HCl (Catapres Tab) 0.1 mg Q6H PRN GT HTN SBP > 160 03/15/20 16:00 06/13/20 15:59 Dextrose (Dextrose 50%) 25 ml Q30M PRN IV Hypoglycemia 03/15/20 16:00 06/13/20 15:59 Dextrose (Dextrose 50%) 50 ml Q30M PRN IV Hypoglycemia 03/15/20 16:00 06/13/20 15:59 Docusate Sodium (Colace) 100 mg TWICE A DAY GT 03/16/20 09:00 04/15/20 08:59 03/17/20 09:19 Doxazosin Mesylate (Cardura) 2 mg BEDTIME GT 03/15/20 21:00 04/14/20 20:59 03/16/20 21:20 Finasteride (Proscar) 5 mg DAILY ORAL 03/16/20 09:00 06/14/20 08:59 03/17/20 09:20 Fluconazole (Diflucan) 100 mg DAILY GT 03/16/20 09:00 03/23/20 08:59 03/17/20 09:22 Heparin Sodium (Porcine) (Heparin 5000 units/ml) 5,000 units EVERY 12 HOURS SUBQ 03/15/20 21:00 04/29/20 20:59 03/17/20 09:27 Hydralazine HCl (Apresoline) 50 mg EVERY 8 HOURS GT 03/15/20 22:00 06/13/20 21:59 03/17/20 05:35 Insulin Aspart (NovoLOG) BEFORE MEALS AND HS SUBQ 03/15/20 16:30 06/13/20 16:29 03/16/20 05:11 Insulin Detemir (Levemir) 30 units BID SUBQ 03/15/20 18:00 06/13/20 17:59 03/17/20 09:26 Magnesium Hydroxide (Mom) 30 ml BEDTIME PRN GT Constipation 03/15/20 16:00 04/14/20 15:59 Metoprolol Tartrate (Lopressor) 25 mg EVERY 12 HOURS GT 03/15/20 21:00 06/13/20 20:59 03/17/20 09:19 Piperacillin Sod/ Tazobactam Sod 3.375 gm/Sodium Chloride 110 ml @ 27.5 mls/hr EVERY 8 HOURS IVPB 03/15/20 22:00 03/20/20 21:59 03/17/20 05:35 Saccharomyces Boulardii (Florastor) 250 mg TWICE A DAY GT 03/15/20 18:00 06/13/20 17:59 03/17/20 09:19 Sodium Phosphate (Fleet's Sodium Phosl Enema) 133 ml DAILYPRN PRN RECTAL Constipation 03/15/20 16:00 04/14/20 15:59 Tamsulosin HCl (Flomax) 0.4 mg BEDTIME ORAL 03/15/20 21:00 04/14/20 20:59 03/16/20 21:20 Vancomycin HCl (Vanco pharmacy to dose) 1 ea DAILY PRN MISC Per rx protocol 03/15/20 16:00 04/14/20 15:59 Vancomycin HCl 1 gm/Dextrose 275 ml @ 183.708 mls/hr Q12HR IVPB 03/17/20 09:00 03/22/20 08:59 03/17/20 09:34 Zinc Oxide (Zinc Oxide) 1 applic THREE TIMES A DAY TOPIC 03/15/20 18:00 06/13/20 17:59 03/17/20 09:22 Jesica Alegria MD Mar 17, 2020 11:37"
[2020-03-17 12:00] VITALS: BP 123/62
--- NOTE | 2020-03-17 14:01 | Surgery Progress Note ---
Surgery Progress Note Subjective Additional Comments no acute events comfortable no n/v/f/c Objective Last 24 Hour Vital Signs Date Time Temp Pulse Resp B/P (MAP) Pulse Ox O2 Delivery O2 Flow Rate FiO2 03/17/20 12:00 40 03/17/20 11:08 65 16 40 03/17/20 09:22 91 136/87 03/17/20 09:19 91 136/87 03/17/20 08:00 98.2 91 18 136/87 (103) 98 03/17/20 08:00 82 03/17/20 08:00 Mechanical Ventilator 03/17/20 08:00 40 03/17/20 07:47 87 17 40 03/17/20 05:35 126/66 03/17/20 04:00 Mechanical Ventilator 03/17/20 04:00 97.9 90 18 133/74 (93) 95 03/17/20 04:00 40 03/17/20 03:26 71 03/17/20 02:50 72 18 40 03/17/20 00:00 Mechanical Ventilator 03/17/20 00:00 40 03/17/20 00:00 98.2 82 18 121/72 (88) 100 03/16/20 23:30 79 03/16/20 22:16 84 22 40 03/16/20 22:07 111/65 03/16/20 21:20 87 119/64 03/16/20 20:00 98.2 91 22 130/73 (92) 97 03/16/20 20:00 Mechanical Ventilator 03/16/20 20:00 87 03/16/20 20:00 40 03/16/20 19:11 90 24 40 03/16/20 17:17 81 108/66 03/16/20 16:00 40 03/16/20 16:00 81 03/16/20 16:00 98.4 79 23 111/64 (80) 98 03/16/20 16:00 Mechanical Ventilator 03/16/20 15:00 82 19 40 03/16/20 14:00 108/56 I&O Intake and Output 03/16/20 03/17/20 19:00 07:00 Intake Total 607.500 ml 702.5 ml Output Total 500 ml 1400 ml Balance 107.500 ml -697.5 ml IV Total 357.500 ml 137.5 ml Tube Feeding 250 ml 395 ml Other 170 ml Output Urine Total 500 ml 1400 ml # Bowel Movements 2 2 Dressing: other Wound: other Cardiovascular: RSR Respiratory: decreased breath sounds Abdomen: soft, non-tender, present bowel sounds Extremities: no tenderness, no cyanosis Laboratory Tests Test 03/16/20 16:06 03/16/20 20:10 03/17/20 02:40 03/17/20 04:00 POC Whole Blood Glucose 111 MG/DL (74-106) H Vancomycin Level Trough 24.4 ug/mL (5.0-12.0) H White Blood Count 17.7 K/UL (4.8-10.8) H Red Blood Count 3.28 M/UL (4.70-6.10) L Hemoglobin 8.6 G/DL (14.2-18.0) L Hematocrit 26.9 % (42.0-52.0) L Mean Corpuscular Volume 82 FL (80-99) Mean Corpuscular Hemoglobin 26.2 PG (27.0-31.0) L Mean Corpuscular Hemoglobin Concent 31.9 G/DL (32.0-36.0) L Red Cell Distribution Width 16.6 % (11.6-14.8) H Platelet Count 380 K/UL (150-450) Mean Platelet Volume 10.4 FL (6.5-10.1) H Neutrophils (%) (Auto) 73.7 % (45.0-75.0) Lymphocytes (%) (Auto) 12.7 % (20.0-45.0) L Monocytes (%) (Auto) 8.4 % (1.0-10.0) Eosinophils (%) (Auto) 4.3 % (0.0-3.0) H Basophils (%) (Auto) 1.0 % (0.0-2.0) Erythrocyte Sedimentation Rate 126 MM/HR (0-20) H Prothrombin Time 11.3 SEC (9.30-11.50) Prothromb Time International Ratio 1.0 (0.9-1.1) Activated Partial Thromboplast Time 33 SEC (23-33) Sodium Level 144 MMOL/L (136-145) Potassium Level 4.1 MMOL/L (3.5-5.1) Chloride Level 109 MMOL/L (98-107) H Carbon Dioxide Level 28 MMOL/L (21-32) Anion Gap 7 mmol/L (5-15) Blood Urea Nitrogen 17 mg/dL (7-18) Creatinine 0.9 MG/DL (0.55-1.30) Estimat Glomerular Filtration Rate > 60 mL/min (>60) Glucose Level 101 MG/DL (74-106) Lactic Acid Level 0.90 mmol/L (0.4-2.0) Calcium Level 8.7 MG/DL (8.5-10.1) Total Bilirubin 0.3 MG/DL (0.2-1.0) Aspartate Amino Transf (AST/SGOT) 13 U/L (15-37) L Alanine Aminotransferase (ALT/SGPT) 22 U/L (12-78) Alkaline Phosphatase 83 U/L (46-116) C-Reactive Protein, Quantitative 21.8 mg/dL (0.00-0.90) H Total Protein 6.7 G/DL (6.4-8.2) Albumin 1.9 G/DL (3.4-5.0) L Globulin 4.8 g/dL Albumin/Globulin Ratio 0.4 (1.0-2.7) L Amylase Level 16 U/L (25-115) L Lipase 38 U/L (73-393) L Random Vancomycin Level 20.0 ug/mL Pro-B-Type Natriuretic Peptide 459 pg/mL (0-125) H Test 03/17/20 05:24 03/17/20 11:51 POC Whole Blood Glucose 107 MG/DL (74-106) H 141 MG/DL (74-106) H Plan Problems: (1) Anemia (2) Decubital ulcer Assessment & Plan: Patient presented admission with a stage IV sacral decubitus ulcer and deep tissue injury wound with maceration of skin as well as into the buttock. Wound evaluated bedside with care team. Care plan and dressings ap plied. Thera honey initiated. Will follow with recommendations and care plan. Pt presented on admission with Tracheostomy,Erosion at GT site, Multiple Pressure injuries. Skin assessed around collar of trach and no areas of skin breakdown noted. Insertion site and Peristomal GT erythematous and macerated. Silver Nitrate x1 application applied. Full Thickness Pressure Injury with tunneling R Buttocks (L)5.8cm x (W)3.4cm x (D)2.7cm,Tunneling clockwise 11-12 by 3.9cm @12 o'clock. Beefy granulation at base of wound.Bone is palpable at base of wound. Edges are flat and adherent to base of wound. Franks Field epithelial with scattered areas of hyperpigmentation periwound. Small amt sanguineous exudate noted. No odor noted. Partial thickness wounds in L shape formation noted R buttocks in close proximity to above wound. Marginal erythema along borders. (L)9.2cm x (W)5.5cm. Small amt serosanguineous exudate noted. Partially opened DTPI Sacrum (L)6.2cm x (W)3.3cm. Base of wound is purpuric and fluctuant with macerated borders including periwound. Scrotum is erythematous. Non-Blanchable erythema without fluctuance or induration R and L heels. Tx.Plan: Cleanse Sacral wound with Saline. Apply TheraHoney. Apply Moisture Barrier Paste periwound. Cover with Optifoam Drsg Daily and prn. Cleanse wound R Buttocks with Saline. Loosely pack with Therahoney impregnated Kerlix. Apply Moisture Barrier Paste periwound. Cover with Optifoam drsg. Change Daily and Prn. Apply Moisture Barrier paste to wound Outer R Buttocks. Cover with Optifoam drsg. Change every 3 days and prn. Apply Moisture Barrier Paste to Scrotum and groin area with each Incontinence care. Cleanse GT site with soap and water. Pat dry. Apply Zinc Oxide Paste to GT Site BID. Apply Cavilon Skin Barrier to both heels and Malleoli. Cover each site with Optifoam drsgs. Change every 7 days and prn. Reposition at least every 2hours or as tolerated. Off-load heels with pillow. APM/DALTON Mattress overlay. (3) Leukocytosis Assessment & Plan: There appears to be a large open wound in the inferomedial right buttock adjacent to the right ischium. There are a few gas bubbles within the soft tissues subjacent to this. No discrete fluid collection demonstrated. There is some infiltration of the tissues lateral to the ischium. There is evidence of cortical erosion and bone loss of posterior and inferior ischium, consistent with osteomyelitis. on abx picc cont tx micro reviewed plan repeat CT - as below improved Again demonstrated is a wound in the right ischial region. This appears to contain some packing material. This appears to penetrate much less deeply than on the prior study, as no deep gas bubbles are evident. Density in the area appears to be scar tissue rather than fluid. Again demonstrated is erosion of the adjacent ischium, extent of which appears to be unchanged. Again demonstrated is extensive heterotopic ossification and degenerative change about the left hip. Again demonstrated is a left inguinal hernia that contains only fat. Again demonstrated is broad-based diastasis of the rectus abdominis tendon above the umbilicus, bordering on herniation. There is also a tiny fat-containing umbilical hernia. There is evidence of prior surgery in the region. There is no evidence of obstruction. There is distention of the rectum by feces. This appears less severe than on the prior study. Again demonstrated is extensive colonic diverticulosis. No evidence of diverticulitis. What appears to be a short normal appendix is evident. No small bowel distention. No free or loculated intraperitoneal gas or fluid is evident. No small bowel wall thickening. There is a gastrostomy in place which appears well- positioned. There is evidence of prior gastric surgery. The distal esophagus and duodenum are unremarkable. The gallbladder contains gallstones. Lack of IV contrast limits assessment of the solid organs. The liver is grossly unremarkable. The pancreas is atrophic and nearly completely fatty replaced. The spleen is not demonstrated, although there is evidence of some scattered splenic tissue in the left upper quadrant. The adrenals are unremarkable. Right renal staghorn calculi and other calyceal calculi are again demonstrated. Left renal parapelvic cyst or cysts are again demonstrated. A small peripheral calyceal calculus is also demonstrated in the left kidney. No retroperitoneal or mesenteric mass or adenopathy. The bladder is empty, contains a Peters catheter. Calculi are again demonstrated within the bladder. The prostate is enlarged. The lung bases demonstrate considerable consolidation involving the right lower lobe. There is also a component of volume loss. There is some posterior dependent atelectasis of the left lung as well. The bones demonstrate degenerative spondylosis changes, appearing similar to the previous study. There is a stable mild compression fracture deformity of the L3 vertebral body. Impression: Right ischial region wound, consistent with known clinical history of decubitus changes in this area. This appears to demonstrate some interim healing since previous study. Stable erosive changes of the adjacent ischium. No definite evidence of abscess, although evaluation for such is limited given the absence of IV contrast administration. Evidence of rectal fecal impaction, less severe than on the previous study. Diverticulosis, also previously reported Cholelithiasis, also previously reported Unchanged right renal staghorn and other calculi, small left renal calculus Right lower lobe consolidation and volume loss. Less extensive atelectasis of the posterior left lung Broad-based diastasis of the rectus abdominis tendon bordering on herniation, nonobstructive, also previously reported Absent spleen. There is evidence of some scattered splenic tissue in the left upper quadrant, also previously reported Other findings as noted, including gastrostomy, evidence of prior gastric surgery, atrophic fatty replaced pancreas, left renal parapelvic cyst or cysts, Peters catheter, enlarged prostate, bladder calculi, degenerative spondylosis, stable L3 vertebral body mild compression fracture deformity (4) UTI (urinary tract infection) (5) Pneumonia (6) Septic shock (7) Urinary retention (8) Hematuria (9) Hematuria (10) Failure to thrive (11) Fecal impaction (12) Hypernatremia (13) Bowel obstruction (14) Bowel obstruction (15) Leukocytosis (16) Respiratory failure (17) Sepsis (18) Sepsis (19) Respiratory failure, chronic (20) SBO (small bowel obstruction) (21) Hypertension (22) Pneumonia (23) [id number] (24) Pneumonia (25) Pneumonia (26) Encephalopathy acute (27) Encephalopathy chronic (28) Abnormal laboratory test result (29) Diabetes mellitus out of control (30) BPH (benign prostatic hyperplasia) (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
[2020-03-17 16:00] VITALS: BP 136/76
[2020-03-17 20:00] VITALS: BP 123/73
--- NOTE | 2020-03-17 22:41 | General Progress Note ---
Subjective Allergies: Coded Allergies: No Known Allergies (Unverified , 02/11/13) Subjective calm unresponsive on TF Objective Last 24 Hour Vital Signs Date Time Temp Pulse Resp B/P (MAP) Pulse Ox O2 Delivery O2 Flow Rate FiO2 03/17/20 20:00 40 03/17/20 20:00 81 03/17/20 20:00 98.4 81 16 123/73 (90) 100 03/17/20 20:00 Mechanical Ventilator 03/17/20 19:00 78 24 40 03/17/20 18:40 79 136/76 03/17/20 16:00 93 03/17/20 16:00 98.1 79 17 136/76 (96) 100 03/17/20 15:28 Mechanical Ventilator 03/17/20 15:27 40 03/17/20 15:25 78 24 40 03/17/20 14:36 136/87 03/17/20 12:00 Mechanical Ventilator 03/17/20 12:00 40 03/17/20 12:00 98.1 75 17 123/62 (82) 100 03/17/20 12:00 98 03/17/20 11:08 65 16 40 03/17/20 09:22 91 136/87 03/17/20 09:19 91 136/87 03/17/20 08:00 98.2 91 18 136/87 (103) 98 03/17/20 08:00 82 03/17/20 08:00 Mechanical Ventilator 03/17/20 08:00 40 03/17/20 07:47 87 17 40 03/17/20 05:35 126/66 03/17/20 04:00 Mechanical Ventilator 03/17/20 04:00 97.9 90 18 133/74 (93) 95 03/17/20 04:00 40 03/17/20 03:26 71 03/17/20 02:50 72 18 40 03/17/20 00:00 Mechanical Ventilator 03/17/20 00:00 40 03/17/20 00:00 98.2 82 18 121/72 (88) 100 03/16/20 23:30 79 Intake and Output 03/16/20 03/17/20 19:00 07:00 Intake Total 607.500 ml 737.5 ml Output Total 500 ml 1400 ml Balance 107.500 ml -662.5 ml IV Total 357.500 ml 137.5 ml Tube Feeding 250 ml 430 ml Other 170 ml Output Urine Total 500 ml 1400 ml # Bowel Movements 2 2 Laboratory Tests 03/17/20 02:40: White Blood Count 17.7H, Red Blood Count 3.28L, Hemoglobin 8.6L, Hematocrit 26.9L, Mean Corpuscular Volume 82, Mean Corpuscular Hemoglobin 26.2L, Mean Corpuscular Hemoglobin Concent 31.9L, Red Cell Distribution Width 16.6H, Platelet Count 380, Mean Platelet Volume 10.4H, Neutrophils (%) (Auto) 73.7, Lymphocytes (%) (Auto) 12.7L, Monocytes (%) (Auto) 8.4, Eosinophils (%) (Auto) 4.3H, Basophils (%) (Auto) 1.0, Erythrocyte Sedimentation Rate 126H, Prothrombin Time 11.3, Prothromb Time International Ratio 1.0, Activated Partial Thromboplast Time 33, Sodium Level 144, Potassium Level 4.1, Chloride Level 109H , Carbon Dioxide Level 28, Anion Gap 7, Blood Urea Nitrogen 17, Creatinine 0.9, Estimat Glomerular Filtration Rate > 60, Glucose Level 101, Lactic Acid Level 0.90, Calcium Level 8.7, Total Bilirubin 0.3, Aspartate Amino Transf (AST/SGOT) 13L, Alanine Aminotransferase (ALT/SGPT) 22, Alkaline Phosphatase 83, C-Reactive Protein, Quantitative 21.8H, Total Protein 6.7, Albumin 1.9L, Globulin 4.8, Albumin/Globulin Ratio 0.4L, Amylase Level 16L, Lipase 38L, Random Vancomycin Level 20.0 03/17/20 04:00: Pro-B-Type Natriuretic Peptide 459H 03/17/20 05:24: POC Whole Blood Glucose 107H 03/17/20 11:51: POC Whole Blood Glucose 141H 03/17/20 18:27: POC Whole Blood Glucose 104 Height (Feet): 5 Height (Inches): 10.00 Weight (Pounds): 207 Objective Elderly man NCAT supple CTA RR abd distended, (+) GT with some GT site acid dermatitis, improved no edema Assessment/Plan Status: stable Assessment/Plan: Assessment - Anoxic encephalopathy - dysphagia / s/p GT - GT site acid dermatitis - Resp failure, s/p trach - CVA - HTN - DM - Leukocytosis, sepsis - Osteo - Poor px Recommendations - s/p GT change - GT feeds - Monitor GT for leaking - GT site care - Elevate HOB - Rose Capps MD Mar 17, 2020 22:41
[2020-03-17] MEDS: Doxazosin 1mg Tab GT SCH (23:06)
[2020-03-17] MEDS: Dyna-Hex 2% Top Sol 2oz TOPIC SCH (23:11)
[2020-03-17] MEDS: Tamsulosin 0.4mg cap ORAL SCH (23:11)
[2020-03-17] MEDS: Vancomycin 1 GM in NS 275 ML IVPB SCH (23:14)
[2020-03-18] VITALS: BP 118/65
--- NOTE | 2020-03-18 01:12 | Cardiology Progress Note ---
Subjective DATE OF SERVICE: Mar 17, 2020 On vent support via trach Defervesced Urine culture + yeast Monitor: sinus/sinus tachycardia Objective Last 24 Hour Vital Signs Date Time Temp Pulse Resp B/P (MAP) Pulse Ox O2 Delivery O2 Flow Rate FiO2 03/18/20 00:00 40 03/18/20 00:00 Mechanical Ventilator 03/18/20 00:00 98.3 80 18 118/65 (82) 98 03/17/20 23:23 83 17 40 03/17/20 23:13 123/73 03/17/20 23:07 81 123/73 03/17/20 20:00 40 03/17/20 20:00 81 03/17/20 20:00 98.4 81 16 123/73 (90) 100 03/17/20 20:00 Mechanical Ventilator 03/17/20 19:00 78 24 40 03/17/20 18:40 79 136/76 03/17/20 16:00 93 03/17/20 16:00 98.1 79 17 136/76 (96) 100 03/17/20 15:28 Mechanical Ventilator 03/17/20 15:27 40 03/17/20 15:25 78 24 40 03/17/20 14:36 136/87 03/17/20 12:00 Mechanical Ventilator 03/17/20 12:00 40 03/17/20 12:00 98.1 75 17 123/62 (82) 100 03/17/20 12:00 98 03/17/20 11:08 65 16 40 03/17/20 09:22 91 136/87 03/17/20 09:19 91 136/87 03/17/20 08:00 98.2 91 18 136/87 (103) 98 03/17/20 08:00 82 03/17/20 08:00 Mechanical Ventilator 03/17/20 08:00 40 03/17/20 07:47 87 17 40 03/17/20 05:35 126/66 03/17/20 04:00 Mechanical Ventilator 03/17/20 04:00 97.9 90 18 133/74 (93) 95 03/17/20 04:00 40 03/17/20 03:26 71 03/17/20 02:50 72 18 40 ROS: no change from my dictation of 03/15/20 HEENT: Mechanically Ventilated, Thick Trach secretions RHYTHM: NSR, ST LUNGS: bilateral rhonchi CARDIAC: regular rhythm, normal S1 and S2, rapid rate, tachycardia ABDOMEN: non tender, soft, no organomegaly, G-Tube intact EXTREMITIES: non-tender, No edema, other - sacral decub; Neuro unresponsive Laboratory Tests Test 03/17/20 02:40 03/17/20 04:00 03/17/20 05:24 03/17/20 11:51 White Blood Count 17.7 K/UL (4.8-10.8) H Red Blood Count 3.28 M/UL (4.70-6.10) L Hemoglobin 8.6 G/DL (14.2-18.0) L Hematocrit 26.9 % (42.0-52.0) L Mean Corpuscular Volume 82 FL (80-99) Mean Corpuscular Hemoglobin 26.2 PG (27.0-31.0) L Mean Corpuscular Hemoglobin Concent 31.9 G/DL (32.0-36.0) L Red Cell Distribution Width 16.6 % (11.6-14.8) H Platelet Count 380 K/UL (150-450) Mean Platelet Volume 10.4 FL (6.5-10.1) H Neutrophils (%) (Auto) 73.7 % (45.0-75.0) Lymphocytes (%) (Auto) 12.7 % (20.0-45.0) L Monocytes (%) (Auto) 8.4 % (1.0-10.0) Eosinophils (%) (Auto) 4.3 % (0.0-3.0) H Basophils (%) (Auto) 1.0 % (0.0-2.0) Erythrocyte Sedimentation Rate 126 MM/HR (0-20) H Prothrombin Time 11.3 SEC (9.30-11.50) Prothromb Time International Ratio 1.0 (0.9-1.1) Activated Partial Thromboplast Time 33 SEC (23-33) Sodium Level 144 MMOL/L (136-145) Potassium Level 4.1 MMOL/L (3.5-5.1) Chloride Level 109 MMOL/L (98-107) H Carbon Dioxide Level 28 MMOL/L (21-32) Anion Gap 7 mmol/L (5-15) Blood Urea Nitrogen 17 mg/dL (7-18) Creatinine 0.9 MG/DL (0.55-1.30) Estimat Glomerular Filtration Rate > 60 mL/min (>60) Glucose Level 101 MG/DL (74-106) Lactic Acid Level 0.90 mmol/L (0.4-2.0) Calcium Level 8.7 MG/DL (8.5-10.1) Total Bilirubin 0.3 MG/DL (0.2-1.0) Aspartate Amino Transf (AST/SGOT) 13 U/L (15-37) L Alanine Aminotransferase (ALT/SGPT) 22 U/L (12-78) Alkaline Phosphatase 83 U/L (46-116) C-Reactive Protein, Quantitative 21.8 mg/dL (0.00-0.90) H Total Protein 6.7 G/DL (6.4-8.2) Albumin 1.9 G/DL (3.4-5.0) L Globulin 4.8 g/dL Albumin/Globulin Ratio 0.4 (1.0-2.7) L Amylase Level 16 U/L (25-115) L Lipase 38 U/L (73-393) L Random Vancomycin Level 20.0 ug/mL Pro-B-Type Natriuretic Peptide 459 pg/mL (0-125) H POC Whole Blood Glucose 107 MG/DL (74-106) H 141 MG/DL (74-106) H Test 03/17/20 18:27 03/17/20 23:39 POC Whole Blood Glucose 104 MG/DL (74-106) Pending Microbiology Date/Time Source Procedure Growth Status 03/16/20 16:05 Sputum Gram Stain - Final Resulted 03/16/20 16:05 Sputum Sputum Culture Pending Resulted 03/15/20 12:00 Rectum VRE Culture - Final Enterococcus Faecalis - Vre Complete 03/15/20 12:00 Indwelling Cath Urine Culture - Final Yeast Species Streptococcus Viridans Complete 03/15/20 12:00 Nasal Nares MRSA Culture - Final NO METHICILLIN RESISTANT STAPH AUREUS... Complete 03/15/20 12:00 Nasopharynx SARS-CoV-2 RdRp Gene Assay - Final Complete 03/15/20 12:00 Blood Blood Culture - Preliminary NO GROWTH AFTER 24 HOURS Resulted 03/15/20 12:00 Blood Blood Culture - Preliminary NO GROWTH AFTER 24 HOURS Resulted Assessment/Plan Assessment/Plan Severe sepsis Fungal cystitis Respiratory failure with trach Chronic encephalopathy HC assoc PNA Hypertension/HHC Acute/chronic diastolic CHF Anemia Dysphagia with Brie Anti-fungal therapy Vent Resp Rx Trend BNP; adjust fluids accordingly - now off IVF. DVT prophyl Nutritional support by Brady Felipe MD Mar 18, 2020 01:12
--- NOTE | 2020-03-18 03:59 | Consultation ---
DATE OF CONSULTATION: 03/15/2020 CONSULTING PHYSICIAN: Brady Burks M.D. REQUESTING PHYSICIAN: Jeremiah Perkins M.D. REASON FOR CONSULTATION: Tachycardia and severe sepsis. HISTORY OF PRESENT ILLNESS: This is a 69-year-old male with tracheostomy who resides at a long term facility. He was transferred for evaluation of abnormal laboratory studies. He was noted to have abnormal vital signs on route as well as clinical finding suggesting severe sepsis. I have been asked to assist with cardiovascular care. The patient is unable to give any historical data and records are reviewed from senior care as well as recent hospitalizations for the remainder of this report. PAST MEDICAL HISTORY: Hypertension, diastolic congestive heart failure, chronic obstructive pulmonary disease, type 2 diabetes mellitus, gastritis, history of gastrointestinal bleeding, cerebrovascular disease with history of cerebrovascular accident, respiratory failure, dementia, dysphagia, seizure disorder, quadriplegia. ALLERGIES: None. MEDICATIONS: Reviewed and reconciled. FAMILY HISTORY: Not known. SOCIAL HISTORY: No record of recent smoking, alcohol, or substance abuse. REVIEW OF SYSTEMS: Unobtainable from the patient. Thirty minutes time spent reviewing records with data outlined above. PHYSICAL EXAMINATION: VITAL SIGNS: Temperature 100.8, blood pressure 143/72, heart rate 96, respiratory rate 20. Ventilated via tracheostomy. LUNGS: Coarse breath sounds. Rhonchi. Thick secretions. HEART: Regular rhythm and rate. Normal S1 and S2. There is a fourth heart sound. ABDOMEN: Soft and nontender. G-tube intact. EXTREMITIES: Trace edema and contractures, noncommunicative. LABORATORY DATA: Chest x-ray reviewed, bilateral consolidations and mild pulmonary venous congestion. White count 25.6 and hemoglobin 9.5. ABG, 7.44, 41, 110. Sodium 140, potassium 3.7, bicarb 30, BUN 21, and creatinine 0.9. Troponin negative. Albumin 2.2. Electrocardiogram revealed sinus rhythm, 77 beats per minute, nonspecific ST changes, occasional premature ventricular contraction noted on monitor. IMPRESSION: 1. Healthcare-associated pneumonia. 2. Respiratory failure. 3. Severe sepsis. 4. Nonsustained ventricular ectopics. 5. Secondary sinus tachycardia. 6. Severe protein-calorie malnutrition. 7. Dysphagia with G-tube. 8. Cerebrovascular disease with prior cerebrovascular accident and advanced dementia. 9. Prerenal azotemia. 10. Hypovolemia. 11. Dehydration. 12. Urinary tract infection. 13. Hypoxia. 14. Leukocytosis. PLAN: 1. Ventilator support. 2. Panculture. 3. Broad-spectrum antimicrobials. 4. Bronchodilators. 5. Intravenous fluid hydration. 6. Monitor electrolytes. 7. DVT prophylaxis. 8. Skin care. 9. Insulin coverage by sliding scale. 10. Hold antihypertensives. 11. Stress ulcer prophylaxis. 12. Follow up radiograph and laboratory studies. Brady Burks M.D. DR: SANTIAGO JOB#: [id number] CC:
[2020-03-18 04:00] VITALS: BP 127/72
[2020-03-18] MEDS: NovoLOG Insulin Flexpen SUBQ SCH ×4 (04:56→23:03)
[2020-03-18] MEDS: Piperacillin/Tazobactam 3.375 GM in NS 110 ML IVPB SCH ×3 (04:59→21:34)
[2020-03-18] MEDS: HydrALAZINE 50mg tab GT SCH ×3 (04:59→21:34)
[2020-03-18 05:56] LABS: HEMATOCRIT 27.1 % (42.0-52.0); HEMOGLOBIN 8.6 G/DL (14.2-18.0); LYMPHOCYTES % (AUTO) 21.9 % (20.0-45.0); MEAN CORPUSCULAR VOLUME 83 FL (80-99); MONOCYTES % (AUTO) 8.1 % (1.0-10.0); PLATELET COUNT 423 K/UL (150-450); RED BLOOD COUNT 3.27 M/UL (4.70-6.10); RED CELL DISTRIBUTION WIDTH 16.5 % (11.6-14.8); WHITE BLOOD COUNT 14.2 K/UL (4.8-10.8)
[2020-03-18 06:37] LABS: ALANINE AMINOTRANSFERASE 23 U/L (12-78); ALBUMIN/GLOBULIN RATIO 0.5 (1.0-2.7); ALKALINE PHOSPHATASE 82 U/L (46-116); ANION GAP 9 mmol/L (5-15); ASPARTATE AMINO TRANSFERASE 13 U/L (15-37); BILIRUBIN,TOTAL 0.4 MG/DL (0.2-1.0); BLOOD UREA NITROGEN 17 mg/dL (7-18); CALCIUM 9.1 MG/DL (8.5-10.1); CARBON DIOXIDE 28 MMOL/L (21-32); CHLORIDE 109 MMOL/L (98-107); CREATININE 0.8 MG/DL (0.55-1.30); POTASSIUM 3.5 MMOL/L (3.5-5.1); SODIUM 146 MMOL/L (136-145)
[2020-03-18 08:00] VITALS: BP 128/69
[2020-03-18] MEDS: Calcium Carbonate 650mg Tab GT SCH (10:36)
[2020-03-18] MEDS: Docusate 100mg/10ml Liq GT SCH ×2 (10:36→17:54)
[2020-03-18] MEDS: Vancomycin 1 GM in NS 275 ML IVPB SCH (10:45)
[2020-03-18] MEDS: Ascorbic Acid 500mg tab GT SCH (10:46)
[2020-03-18] MEDS: Zinc Oxide Oint 2oz TOPIC SCH ×3 (10:46→17:55)
[2020-03-18] MEDS: Fluconazole 100mg tab GT SCH (11:06)
[2020-03-18] MEDS: Heparin 5000 units/ml inj SUBQ SCH ×2 (11:09→20:25)
--- NOTE | 2020-03-18 11:27 | Infectious Diseases Prog Note ---
"Assessment/Plan Assessment/Plan antibiotics : vancomycin iv, zosyn, fluconazole A 1. streptococcus | fungal UTI 2. gram negative pneumonia 3. respiratory failure 4. diabetes mellitus 5. hypertension 6. COPD P 1. d/c vancomycin iv 2. continue zosyn 3. continue fluconazole 1 more day 4. will follow up cultures Subjective ROS Limited/Unobtainable: Yes Allergies: Coded Allergies: No Known Allergies (Unverified , 02/11/13) Objective Last 24 Hour Vital Signs Date Time Temp Pulse Resp B/P (MAP) Pulse Ox O2 Delivery O2 Flow Rate FiO2 03/18/20 11:06 84 128/69 03/18/20 10:51 84 22 40 03/18/20 10:36 67 128/69 03/18/20 09:00 67 16 40 03/18/20 08:09 79 16 40 03/18/20 08:00 98.6 78 18 128/69 (88) 95 03/18/20 04:59 127/72 03/18/20 04:00 Mechanical Ventilator 03/18/20 04:00 98.2 82 18 127/72 (90) 99 03/18/20 04:00 40 03/18/20 03:41 79 03/18/20 03:25 86 16 40 03/18/20 00:00 40 03/18/20 00:00 Mechanical Ventilator 03/18/20 00:00 98.3 80 18 118/65 (82) 98 03/17/20 23:31 82 03/17/20 23:23 83 17 40 03/17/20 23:13 123/73 03/17/20 23:07 81 123/73 03/17/20 20:00 40 03/17/20 20:00 81 03/17/20 20:00 98.4 81 16 123/73 (90) 100 03/17/20 20:00 Mechanical Ventilator 03/17/20 19:00 78 24 40 03/17/20 18:40 79 136/76 03/17/20 16:00 93 03/17/20 16:00 98.1 79 17 136/76 (96) 100 03/17/20 15:28 Mechanical Ventilator 03/17/20 15:27 40 03/17/20 15:25 78 24 40 03/17/20 14:36 136/87 03/17/20 12:00 Mechanical Ventilator 03/17/20 12:00 40 03/17/20 12:00 98.1 75 17 123/62 (82) 100 03/17/20 12:00 98 Height (Feet): 5 Height (Inches): 10.00 Weight (Pounds): 207 HEENT: status post trach Respiratory/Chest: lungs clear Cardiovascular: normal rate, regular rhythm, no gallop/murmur Abdomen: soft, non tender, other - GT Extremities: no edema, other - left arm PICC Microbiology Date/Time Source Procedure Growth Status 03/16/20 16:05 Sputum Gram Stain - Final Resulted 03/16/20 16:05 Sputum Culture - Preliminary Gram Negative Bacillus 1 Gram Negative Bacillus 2 Resulted 03/15/20 12:00 Rectum VRE Culture - Final Enterococcus Faecalis - Vre Complete 03/15/20 12:00 Indwelling Cath Urine Culture - Final Yeast Species Streptococcus Viridans Complete 03/15/20 12:00 Nasal Nares MRSA Culture - Final NO METHICILLIN RESISTANT STAPH AUREUS... Complete 03/15/20 12:00 Nasopharynx SARS-CoV-2 RdRp Gene Assay - Final Complete 03/15/20 12:00 Blood Blood Culture - Preliminary NO GROWTH AFTER 48 HOURS Resulted 03/15/20 12:00 Blood Blood Culture - Preliminary NO GROWTH AFTER 48 HOURS Resulted Laboratory Tests Test 03/17/20 11:51 03/17/20 18:27 03/17/20 23:39 03/18/20 04:08 POC Whole Blood Glucose 141 MG/DL (74-106) H 104 MG/DL (74-106) Pending White Blood Count 14.2 K/UL (4.8-10.8) H Red Blood Count 3.27 M/UL (4.70-6.10) L Hemoglobin 8.6 G/DL (14.2-18.0) L Hematocrit 27.1 % (42.0-52.0) L Mean Corpuscular Volume 83 FL (80-99) Mean Corpuscular Hemoglobin 26.1 PG (27.0-31.0) L Mean Corpuscular Hemoglobin Concent 31.5 G/DL (32.0-36.0) L Red Cell Distribution Width 16.5 % (11.6-14.8) H Platelet Count 423 K/UL (150-450) Mean Platelet Volume 9.1 FL (6.5-10.1) Neutrophils (%) (Auto) 63.0 % (45.0-75.0) Lymphocytes (%) (Auto) 21.9 % (20.0-45.0) Monocytes (%) (Auto) 8.1 % (1.0-10.0) Eosinophils (%) (Auto) 6.0 % (0.0-3.0) H Basophils (%) (Auto) 1.0 % (0.0-2.0) Sodium Level 146 MMOL/L (136-145) H Potassium Level 3.5 MMOL/L (3.5-5.1) Chloride Level 109 MMOL/L (98-107) H Carbon Dioxide Level 28 MMOL/L (21-32) Anion Gap 9 mmol/L (5-15) Blood Urea Nitrogen 17 mg/dL (7-18) Creatinine 0.8 MG/DL (0.55-1.30) Estimat Glomerular Filtration Rate > 60 mL/min (>60) Glucose Level 47 MG/DL (74-106) L Calcium Level 9.1 MG/DL (8.5-10.1) Total Bilirubin 0.4 MG/DL (0.2-1.0) Aspartate Amino Transf (AST/SGOT) 13 U/L (15-37) L Alanine Aminotransferase (ALT/SGPT) 23 U/L (12-78) Alkaline Phosphatase 82 U/L (46-116) Total Protein 6.1 G/DL (6.4-8.2) L Albumin 2.0 G/DL (3.4-5.0) L Globulin 4.1 g/dL Albumin/Globulin Ratio 0.5 (1.0-2.7) L Test 03/18/20 04:54 03/18/20 05:36 POC Whole Blood Glucose Pending Pending Current Medications Medications (Trade) Dose Ordered Sig/Magda Route PRN Reason Start Time Stop Time Status Last Admin Dose Admin Acetaminophen (Tylenol) 650 mg DAILY PRN ORAL pain mgt 03/15/20 16:00 04/14/20 15:59 03/15/20 20:15 Amlodipine Besylate (Norvasc) 5 mg BID GT 03/15/20 18:00 04/14/20 17:59 03/18/20 11:06 Ascorbic Acid (Vitamin C) 500 mg DAILY GT 03/16/20 09:00 04/15/20 08:59 03/18/20 10:46 Bisacodyl (Dulcolax) 10 mg DAILY PRN RECTAL Constipation 03/15/20 16:00 06/13/20 15:59 Calcium Carbonate (Calcium Carbonate) 650 mg DAILY GT 03/16/20 09:00 06/14/20 08:59 03/18/20 10:36 Chlorhexidine Gluconate (Ingris-Hex 2%) 1 applic DAILY@2000 TOPIC 03/16/20 20:00 06/14/20 19:59 03/17/20 23:11 Clonidine HCl (Catapres Tab) 0.1 mg Q6H PRN GT HTN SBP > 160 03/15/20 16:00 06/13/20 15:59 Dextrose (Dextrose 50%) 25 ml Q30M PRN IV Hypoglycemia 03/15/20 16:00 06/13/20 15:59 Dextrose (Dextrose 50%) 50 ml Q30M PRN IV Hypoglycemia 03/15/20 16:00 06/13/20 15:59 03/18/20 05:04 Docusate Sodium (Colace) 100 mg TWICE A DAY GT 03/16/20 09:00 04/15/20 08:59 03/18/20 10:36 Doxazosin Mesylate (Cardura) 2 mg BEDTIME GT 03/15/20 21:00 04/14/20 20:59 03/17/20 23:06 Finasteride (Proscar) 5 mg DAILY ORAL 03/16/20 09:00 06/14/20 08:59 03/18/20 11:06 Fluconazole (Diflucan) 100 mg DAILY GT 03/16/20 09:00 03/23/20 08:59 03/18/20 11:06 Heparin Sodium (Porcine) (Heparin 5000 units/ml) 5,000 units EVERY 12 HOURS SUBQ 03/15/20 21:00 04/29/20 20:59 03/18/20 11:09 Hydralazine HCl (Apresoline) 50 mg EVERY 8 HOURS GT 03/15/20 22:00 06/13/20 21:59 03/18/20 04:59 Insulin Aspart (NovoLOG) EVERY 6 HOURS SUBQ 03/18/20 00:00 06/13/20 16:29 Insulin Detemir (Levemir) 20 units BID SUBQ 03/18/20 09:00 06/16/20 08:59 Magnesium Hydroxide (Mom) 30 ml BEDTIME PRN GT Constipation 03/15/20 16:00 04/14/20 15:59 Metoprolol Tartrate (Lopressor) 25 mg EVERY 12 HOURS GT 03/15/20 21:00 06/13/20 20:59 03/18/20 10:36 Piperacillin Sod/ Tazobactam Sod 3.375 gm/Sodium Chloride 110 ml @ 27.5 mls/hr EVERY 8 HOURS IVPB 03/15/20 22:00 03/20/20 21:59 03/18/20 04:59 Saccharomyces Boulardii (Florastor) 250 mg TWICE A DAY GT 03/15/20 18:00 06/13/20 17:59 03/18/20 10:36 Sodium Phosphate (Fleet's Sodium Phosl Enema) 133 ml DAILYPRN PRN RECTAL Constipation 03/15/20 16:00 04/14/20 15:59 Tamsulosin HCl (Flomax) 0.4 mg BEDTIME ORAL 03/15/20 21:00 04/14/20 20:59 03/17/20 23:11 Vancomycin HCl (Vanco pharmacy to dose) 1 ea DAILY PRN MISC Per rx protocol 03/15/20 16:00 04/14/20 15:59 Vancomycin HCl 1 gm/Sodium Chloride 275 ml @ 183.708 mls/hr Q12HR IVPB 03/17/20 21:00 03/22/20 20:59 03/18/20 10:45 Zinc Oxide (Zinc Oxide) 1 applic THREE TIMES A DAY TOPIC 03/15/20 18:00 06/13/20 17:59 03/18/20 10:46 Jesica Alegria MD Mar 18, 2020 11:27"
[2020-03-18] MEDS: Levemir Flexpen SUBQ SCH ×2 (11:45→18:00)
[2020-03-18 12:00] VITALS: BP 134/75
[2020-03-18] MEDS ORDERED: NS 275ml ONE ×4 (12:51→22:26)
[2020-03-18] MEDS ORDERED: Tubing IV Secondary IV ONE ×2 (12:59→13:07)
--- NOTE | 2020-03-18 15:58 | Surgery Progress Note ---
Surgery Progress Note Subjective Symptoms: tolerating diet, passing flatus, BM Additional Comments varun cute events Objective Last 24 Hour Vital Signs Date Time Temp Pulse Resp B/P (MAP) Pulse Ox O2 Delivery O2 Flow Rate FiO2 03/18/20 13:52 134/75 03/18/20 12:00 98.9 74 18 134/75 (94) 96 03/18/20 12:00 40 03/18/20 12:00 Mechanical Ventilator 03/18/20 12:00 73 03/18/20 11:06 84 128/69 03/18/20 10:51 84 22 40 03/18/20 10:36 67 128/69 03/18/20 09:00 67 16 40 03/18/20 08:09 79 16 40 03/18/20 08:00 40 03/18/20 08:00 98.6 78 18 128/69 (88) 95 03/18/20 08:00 77 03/18/20 08:00 Mechanical Ventilator 03/18/20 04:59 127/72 03/18/20 04:00 Mechanical Ventilator 03/18/20 04:00 98.2 82 18 127/72 (90) 99 03/18/20 04:00 40 03/18/20 03:41 79 03/18/20 03:25 86 16 40 03/18/20 00:00 40 03/18/20 00:00 Mechanical Ventilator 03/18/20 00:00 98.3 80 18 118/65 (82) 98 03/17/20 23:31 82 03/17/20 23:23 83 17 40 03/17/20 23:13 123/73 03/17/20 23:07 81 123/73 03/17/20 20:00 40 03/17/20 20:00 81 03/17/20 20:00 98.4 81 16 123/73 (90) 100 03/17/20 20:00 Mechanical Ventilator 03/17/20 19:00 78 24 40 03/17/20 18:40 79 136/76 03/17/20 16:00 93 03/17/20 16:00 98.1 79 17 136/76 (96) 100 I&O Intake and Output 03/17/20 03/18/20 19:00 07:00 Intake Total 472.5 ml 672.416 ml Output Total 950 ml 1400 ml Balance -477.5 ml -727.584 ml Free Water 50 ml IV Total 27.5 ml 532.416 ml Tube Feeding 395 ml 90 ml Other 50 ml Output Urine Total 950 ml 1400 ml # Bowel Movements 1 1 Dressing: saturated Cardiovascular: RSR Respiratory: clear, decreased breath sounds Abdomen: soft, non-tender, present bowel sounds Extremities: no tenderness, no cyanosis Laboratory Tests Test 03/17/20 18:27 03/17/20 23:39 03/18/20 04:08 03/18/20 04:54 POC Whole Blood Glucose 104 MG/DL (74-106) Pending Pending White Blood Count 14.2 K/UL (4.8-10.8) H Red Blood Count 3.27 M/UL (4.70-6.10) L Hemoglobin 8.6 G/DL (14.2-18.0) L Hematocrit 27.1 % (42.0-52.0) L Mean Corpuscular Volume 83 FL (80-99) Mean Corpuscular Hemoglobin 26.1 PG (27.0-31.0) L Mean Corpuscular Hemoglobin Concent 31.5 G/DL (32.0-36.0) L Red Cell Distribution Width 16.5 % (11.6-14.8) H Platelet Count 423 K/UL (150-450) Mean Platelet Volume 9.1 FL (6.5-10.1) Neutrophils (%) (Auto) 63.0 % (45.0-75.0) Lymphocytes (%) (Auto) 21.9 % (20.0-45.0) Monocytes (%) (Auto) 8.1 % (1.0-10.0) Eosinophils (%) (Auto) 6.0 % (0.0-3.0) H Basophils (%) (Auto) 1.0 % (0.0-2.0) Sodium Level 146 MMOL/L (136-145) H Potassium Level 3.5 MMOL/L (3.5-5.1) Chloride Level 109 MMOL/L (98-107) H Carbon Dioxide Level 28 MMOL/L (21-32) Anion Gap 9 mmol/L (5-15) Blood Urea Nitrogen 17 mg/dL (7-18) Creatinine 0.8 MG/DL (0.55-1.30) Estimat Glomerular Filtration Rate > 60 mL/min (>60) Glucose Level 47 MG/DL (74-106) L Calcium Level 9.1 MG/DL (8.5-10.1) Total Bilirubin 0.4 MG/DL (0.2-1.0) Aspartate Amino Transf (AST/SGOT) 13 U/L (15-37) L Alanine Aminotransferase (ALT/SGPT) 23 U/L (12-78) Alkaline Phosphatase 82 U/L (46-116) Total Protein 6.1 G/DL (6.4-8.2) L Albumin 2.0 G/DL (3.4-5.0) L Globulin 4.1 g/dL Albumin/Globulin Ratio 0.5 (1.0-2.7) L Test 03/18/20 05:36 03/18/20 11:42 POC Whole Blood Glucose Pending Pending Plan Problems: (1) Anemia (2) Decubital ulcer Assessment & Plan: Patient presented admission with a stage IV sacral decubitus ulcer and deep tissue injury wound with maceration of skin as well as into the buttock. Wound evaluated bedside with care team. Care plan and dressings applied. Thera honey initiated. Will follow with recommendations and care plan. Pt presented on admission with Tracheostomy,Erosion at GT site, Multiple Pressure injuries. Skin assessed around collar of trach and no areas of skin breakdown noted. Insertion site and Peristomal GT erythematous and macerated. Silver Nitrate x1 application applied. Full Thickness Pressure Injury with tunneling R Buttocks (L)5.8cm x (W)3.4cm x (D)2.7cm,Tunneling clockwise 11-12 by 3.9cm @12 o'clock. Beefy granulation at base of wound.Bone is palpable at base of wound. Edges are flat and adherent to base of wound. [place] epithelial with scattered areas of hyperpigmentation periwound. Small amt sanguineous exudate noted. No odor noted. Partial thickness wounds in L shape formation noted R buttocks in close proximity to above wound. Marginal erythema along borders. (L)9.2cm x (W)5.5cm. Small amt serosanguineous exudate noted. Partially opened DTPI Sacrum (L)6.2cm x (W)3.3cm. Base of wound is purpuric and fluctuant with macerated borders including periwound. Scrotum is erythematous. Non-Blanchable erythema without fluctuance or induration R and L heels. Tx.Plan: Cleanse Sacral wound with Saline. Apply TheraHoney. Apply Moisture Barrier Paste periwound. Cover with Optifoam Drsg Daily and prn. Cleanse wound R Buttocks with Saline. Loosely pack with Therahoney impregnated Kerlix. Apply Moisture Barrier Paste periwound. Cover with Optifoam drsg. Change Daily and Prn. Apply Moisture Barrier paste to wound Outer R Buttocks. Cover with Optifoam drsg. Change every 3 days and prn. Apply Moisture Barrier Paste to Scrotum and groin area with each Incontinence care. Cleanse GT site with soap and water. Pat dry. Apply Zinc Oxide Paste to GT Site BID. Apply Cavilon Skin Barrier to both heels and Malleoli. Cover each site with Optifoam drsgs. Change every 7 days and prn. Reposition at least every 2hours or as tolerated. Off-load heels with pillow. APM/DALTON Mattress overlay. (3) Leukocytosis Assessment & Plan: There appears to be a large open wound in the inferomedial right buttock adjacent to the right ischium. There are a few gas bubbles within the soft tissues subjacent to this. No discrete fluid collection demonstrated. There is some infiltration of the tissues lateral to the ischium. There is evidence of cortical erosion and bone loss of posterior and inferior ischium, consistent with osteomyelitis. on abx picc cont tx micro reviewed plan repeat CT - as below improved Again demonstrated is a wound in the right ischial region. This appears to contain some packing material. This appears to penetrate much less deeply than on the prior study, as no deep gas bubbles are evident. Density in the area appears to be scar tissue rather than fluid. Again demonstrated is erosion of the adjacent ischium, extent of which appears to be unchanged. Again demonstrated is extensive heterotopic ossification and degenerative change about the left hip. Again demonstrated is a left inguinal hernia that contains only fat. Again demonstrated is broad-based diastasis of the rectus abdominis tendon above the umbilicus, bordering on herniation. There is also a tiny fat-containing umbilical hernia. There is evidence of prior surgery in the region. There is no evidence of obstruction. There is distention of the rectum by feces. This appears less severe than on the prior study. Again demonstrated is extensive colonic diverticulosis. No evidence of diverticulitis. What appears to be a short normal appendix is evident. No small bowel distention. No free or loculated intraperitoneal gas or fluid is evident. No small bowel wall thickening. There is a gastrostomy in place which appears well- positioned. There is evidence of prior gastric surgery. The distal esophagus and duodenum are unremarkable. The gallbladder contains gallstones. Lack of IV contrast limits assessment of the solid organs. The liver is grossly unremarkable. The pancreas is atrophic and nearly completely fatty replaced. The spleen is not demonstrated, although there is evidence of some scattered splenic tissue in the left upper quadrant. The adrenals are unremarkable. Right renal staghorn calculi and other calyceal calculi are again demonstrated. Left renal parapelvic cyst or cysts are again demonstrated. A small peripheral calyceal calculus is also demonstrated in the left kidney. No retroperitoneal or mesenteric mass or adenopathy. The bladder is empty, contains a Peters catheter. Calculi are again demonstrated within the bladder. The prostate is enlarged. The lung bases demonstrate considerable consolidation involving the right lower lobe. There is also a component of volume loss. There is some posterior dependent atelectasis of the left lung as well. The bones demonstrate degenerative spondylosis changes, appearing similar to the previous study. There is a stable mild compression fracture deformity of the L3 vertebral body. Impression: Right ischial region wound, consistent with known clinical history of decubitus changes in this area. This appears to demonstrate some interim healing since previous study. Stable erosive changes of the adjacent ischium. No definite evidence of abscess, although evaluation for such is limited given the absence of IV contrast administration. Evidence of rectal fecal impaction, less severe than on the previous study. Diverticulosis, also previously reported Cholelithiasis, also previously reported Unchanged right renal staghorn and other calculi, small left renal calculus Right lower lobe consolidation and volume loss. Less extensive atelectasis of the posterior left lung Broad-based diastasis of the rectus abdominis tendon bordering on herniation, nonobstructive, also previously reported Absent spleen. There is evidence of some scattered splenic tissue in the left upper quadrant, also previously reported Other findings as noted, including gastrostomy, evidence of prior gastric surgery, atrophic fatty replaced pancreas, left renal parapelvic cyst or cysts, Peters catheter, enlarged prostate, bladder calculi, degenerative spondylosis, stable L3 vertebral body mild compression fracture deformity (4) UTI (urinary tract infection) (5) Pneumonia (6) Septic shock (7) Urinary retention (8) Hematuria (9) Hematuria (10) Failure to thrive (11) Fecal impaction (12) Hypernatremia (13) Bowel obstruction (14) Bowel obstruction (15) Leukocytosis (16) Respiratory failure (17) Sepsis (18) Sepsis (19) Respiratory failure, chronic (20) SBO (small bowel obstruction) (21) Hypertension (22) Pneumonia (23) [address]8789 (24) Pneumonia (25) Pneumonia (26) Encephalopathy acute (27) Encephalopathy chronic (28) Abnormal laboratory test result (29) Diabetes mellitus out of control (30) BPH (benign prostatic hyperplasia) (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
[2020-03-18 16:00] VITALS: BP 113/64
--- NOTE | 2020-03-18 17:14 | Pulmonology Progress Note ---
Subjective ROS Limited/Unobtainable: Yes Allergies: Coded Allergies: No Known Allergies (Unverified , 02/11/13) All Systems: reviewed and negative except above Subjective cultures noted all reviewed off vent Objective Last 24 Hour Vital Signs Date Time Temp Pulse Resp B/P (MAP) Pulse Ox O2 Delivery O2 Flow Rate FiO2 03/18/20 16:45 83 21 40 03/18/20 16:00 98.4 74 18 113/64 (80) 100 03/18/20 16:00 Mechanical Ventilator 03/18/20 16:00 40 03/18/20 13:52 134/75 03/18/20 12:55 73 16 40 03/18/20 12:00 98.9 74 18 134/75 (94) 96 03/18/20 12:00 40 03/18/20 12:00 Mechanical Ventilator 03/18/20 12:00 73 03/18/20 11:06 84 128/69 03/18/20 10:51 84 22 40 03/18/20 10:36 67 128/69 03/18/20 09:00 67 16 40 03/18/20 08:09 79 16 40 03/18/20 08:00 40 03/18/20 08:00 98.6 78 18 128/69 (88) 95 03/18/20 08:00 77 03/18/20 08:00 Mechanical Ventilator 03/18/20 04:59 127/72 03/18/20 04:00 Mechanical Ventilator 03/18/20 04:00 98.2 82 18 127/72 (90) 99 03/18/20 04:00 40 03/18/20 03:41 79 03/18/20 03:25 86 16 40 03/18/20 00:00 40 03/18/20 00:00 Mechanical Ventilator 03/18/20 00:00 98.3 80 18 118/65 (82) 98 03/17/20 23:31 82 03/17/20 23:23 83 17 40 03/17/20 23:13 123/73 03/17/20 23:07 81 123/73 03/17/20 20:00 40 03/17/20 20:00 81 03/17/20 20:00 98.4 81 16 123/73 (90) 100 03/17/20 20:00 Mechanical Ventilator 03/17/20 19:00 78 24 40 03/17/20 18:40 79 136/76 Intake and Output 03/17/20 03/18/20 19:00 07:00 Intake Total 472.5 ml 672.416 ml Output Total 950 ml 1400 ml Balance -477.5 ml -727.584 ml Free Water 50 ml IV Total 27.5 ml 532.416 ml Tube Feeding 395 ml 90 ml Other 50 ml Output Urine Total 950 ml 1400 ml # Bowel Movements 1 1 Objective WDWN NAD trach clear breath sounds bilaterally without rhonchi or wheeze [id number] without MRG NABS nontender no distention; gt no CCE nonfocal poor LOC krishnan Microbiology Date/Time Source Procedure Growth Status 03/16/20 16:05 Sputum Gram Stain - Final Resulted 03/16/20 16:05 Sputum Culture - Preliminary Gram Negative Bacillus 1 Gram Negative Bacillus 2 Resulted Laboratory Tests 03/17/20 18:27: POC Whole Blood Glucose 104 03/17/20 23:39: POC Whole Blood Glucose [Pending] 03/18/20 04:08: White Blood Count 14.2H, Red Blood Count 3.27L, Hemoglobin 8.6L, Hematocrit 27.1L, Mean Corpuscular Volume 83, Mean Corpuscular Hemoglobin 26.1L, Mean Corpuscular Hemoglobin Concent 31.5L, Red Cell Distribution Width 16.5H, Plate let Count 423, Mean Platelet Volume 9.1, Neutrophils (%) (Auto) 63.0, Lymphocytes (%) (Auto) 21.9, Monocytes (%) (Auto) 8.1, Eosinophils (%) (Auto) 6.0H, Basophils (%) (Auto) 1.0, Sodium Level 146H, Potassium Level 3.5, Chloride Level 109H, Carbon Dioxide Level 28, Anion Gap 9, Blood Urea Nitrogen 17, Creatinine 0.8, Estimat Glomerular Filtration Rate > 60, Glucose Level 47L, Calcium Level 9.1, Total Bilirubin 0.4, Aspartate Amino Transf (AST/SGOT) 13L, Alanine Aminotransferase (ALT/SGPT) 23, Alkaline Phosphatase 82, Total Protein 6.1L, Albumin 2.0L, Globulin 4.1, Albumin/Globulin Ratio 0.5L 03/18/20 04:54: POC Whole Blood Glucose [Pending] 03/18/20 05:36: POC Whole Blood Glucose [Pending] 03/18/20 11:42: POC Whole Blood Glucose [Pending] Current Medications Medications (Trade) Dose Ordered Sig/Magda Route PRN Reason Start Time Stop Time Status Last Admin Dose Admin Acetaminophen (Tylenol) 650 mg DAILY PRN ORAL pain mgt 03/15/20 16:00 04/14/20 15:59 03/15/20 20:15 Amlodipine Besylate (Norvasc) 5 mg BID GT 03/15/20 18:00 04/14/20 17:59 03/18/20 11:06 Ascorbic Acid (Vitamin C) 500 mg DAILY GT 03/16/20 09:00 04/15/20 08:59 03/18/20 10:46 Bisacodyl (Dulcolax) 10 mg DAILY PRN RECTAL Constipation 03/15/20 16:00 06/13/20 15:59 Calcium Carbonate (Calcium Carbonate) 650 mg DAILY GT 03/16/20 09:00 06/14/20 08:59 03/18/20 10:36 Chlorhexidine Gluconate (Ingris-Hex 2%) 1 applic DAILY@1999 TOPIC 03/16/20 20:00 06/14/20 19:59 03/17/20 23:11 Clonidine HCl (Catapres Tab) 0.1 mg Q6H PRN GT HTN SBP > 160 03/15/20 16:00 06/13/20 15:59 Dextrose (Dextrose 50%) 25 ml Q30M PRN IV Hypoglycemia 03/15/20 16:00 06/13/20 15:59 Dextrose (Dextrose 50%) 50 ml Q30M PRN IV Hypoglycemia 03/15/20 16:00 06/13/20 15:59 03/18/20 05:04 Docusate Sodium (Colace) 100 mg TWICE A DAY GT 03/16/20 09:00 04/15/20 08:59 03/18/20 10:36 Doxazosin Mesylate (Cardura) 2 mg BEDTIME GT 03/15/20 21:00 04/14/20 20:59 03/17/20 23:06 Finasteride (Proscar) 5 mg DAILY ORAL 03/16/20 09:00 06/14/20 08:59 03/18/20 11:06 Fluconazole (Diflucan) 100 mg DAILY GT 03/16/20 09:00 03/23/20 08:59 03/18/20 11:06 Heparin Sodium (Porcine) (Heparin 5000 units/ml) 5,000 units EVERY 12 HOURS SUBQ 03/15/20 21:00 04/29/20 20:59 03/18/20 11:09 Hydralazine HCl (Apresoline) 50 mg EVERY 8 HOURS GT 03/15/20 22:00 06/13/20 21:59 03/18/20 13:52 Insulin Aspart (NovoLOG) EVERY 6 HOURS SUBQ 03/18/20 00:00 06/13/20 16:29 Insulin Detemir (Levemir) 20 units BID SUBQ 03/18/20 09:00 06/16/20 08:59 03/18/20 11:45 Magnesium Hydroxide (Mom) 30 ml BEDTIME PRN GT Constipation 03/15/20 16:00 04/14/20 15:59 Metoprolol Tartrate (Lopressor) 25 mg EVERY 12 HOURS GT 03/15/20 21:00 06/13/20 20:59 03/18/20 10:36 Piperacillin Sod/ Tazobactam Sod 3.375 gm/Sodium Chloride 110 ml @ 27.5 mls/hr EVERY 8 HOURS IVPB 03/15/20 22:00 03/20/20 21:59 03/18/20 13:53 Saccharomyces Boulardii (Florastor) 250 mg TWICE A DAY GT 03/15/20 18:00 06/13/20 17:59 03/18/20 10:36 Sodium Phosphate (Fleet's Sodium Phosl Enema) 133 ml DAILYPRN PRN RECTAL Constipation 03/15/20 16:00 04/14/20 15:59 Tamsulosin HCl (Flomax) 0.4 mg BEDTIME ORAL 03/15/20 21:00 04/14/20 20:59 03/17/20 23:11 Zinc Oxide (Zinc Oxide) 1 applic THREE TIMES A DAY TOPIC 03/15/20 18:00 06/13/20 17:59 03/18/20 13:52 Assessment/Plan Assessment/Plan IMPRESSION respiratory failure chronic osteomyelitis leukocytosis anemia trach GT chronic encephalopathy PLAN IV antibiotics reviewed cultures care noted respiratory care monitor oxygen needs wound care as is and position change feeds off load monitor HH transfuse PRN monitor wbc and hope to dc soon impression, plan, and exam edited and reviewed in detail care discussed with Silver Correa MD Mar 18, 2020 17:14
--- NOTE | 2020-03-18 17:22 | General Progress Note ---
Subjective ROS Limited/Unobtainable: No Constitutional: Reports: malaise, weakness HEENT: Reports: no symptoms Cardiovascular: Reports: chest pain Respiratory: Reports: shortness of breath, sputum Gastrointestinal/Abdominal: Reports: difficulty swallowing Genitourinary: Reports: no symptoms Neurologic/Psychiatric: Reports: pre-existing deficit Endocrine: Reports: no symptoms Hematologic/Lymphatic: Reports: anemia Allergies: Coded Allergies: No Known Allergies (Unverified , 02/11/13) All Systems: reviewed and negative except above Subjective no events. no fevers or chills. no sob. poorly responsive. on the vent. on iv abx. wbc improving. Objective Last 24 Hour Vital Signs Date Time Temp Pulse Resp B/P (MAP) Pulse Ox O2 Delivery O2 Flow Rate FiO2 03/18/20 16:45 83 21 40 03/18/20 16:00 98.4 74 18 113/64 (80) 100 03/18/20 16:00 Mechanical Ventilator 03/18/20 16:00 40 03/18/20 13:52 134/75 03/18/20 12:55 73 16 40 03/18/20 12:00 98.9 74 18 134/75 (94) 96 03/18/20 12:00 40 03/18/20 12:00 Mechanical Ventilator 03/18/20 12:00 73 03/18/20 11:06 84 128/69 03/18/20 10:51 84 22 40 03/18/20 10:36 67 128/69 03/18/20 09:00 67 16 40 03/18/20 08:09 79 16 40 03/18/20 08:00 40 03/18/20 08:00 98.6 78 18 128/69 (88) 95 03/18/20 08:00 77 03/18/20 08:00 Mechanical Ventilator 03/18/20 04:59 127/72 03/18/20 04:00 Mechanical Ventilator 03/18/20 04:00 98.2 82 18 127/72 (90) 99 03/18/20 04:00 40 03/18/20 03:41 79 03/18/20 03:25 86 16 40 03/18/20 00:00 40 03/18/20 00:00 Mechanical Ventilator 03/18/20 00:00 98.3 80 18 118/65 (82) 98 03/17/20 23:31 82 9/22/20 23:23 83 17 40 03/17/20 23:13 123/73 03/17/20 23:07 81 123/73 03/17/20 20:00 40 03/17/20 20:00 81 03/17/20 20:00 98.4 81 16 123/73 (90) 100 03/17/20 20:00 Mechanical Ventilator 03/17/20 19:00 78 24 40 03/17/20 18:40 79 136/76 Intake and Output 03/17/20 03/18/20 19:00 07:00 Intake Total 472.5 ml 672.416 ml Output Total 950 ml 1400 ml Balance -477.5 ml -727.584 ml Free Water 50 ml IV Total 27.5 ml 532.416 ml Tube Feeding 395 ml 90 ml Other 50 ml Output Urine Total 950 ml 1400 ml # Bowel Movements 1 1 Laboratory Tests 03/17/20 18:27: POC Whole Blood Glucose 104 03/17/20 23:39: POC Whole Blood Glucose [Pending] 03/18/20 04:08: White Blood Count 14.2H, Red Blood Count 3.27L, Hemoglobin 8.6L, Hematocrit 27.1L, Mean Corpuscular Volume 83, Mean Corpuscular Hemoglobin 26.1L, Mean Corpuscular Hemoglobin Concent 31.5L, Red Cell Distribution Width 16.5H, Platelet Count 423, Mean Platelet Volume 9.1, Neutrophils (%) (Auto) 63.0, Lymphocytes (%) (Auto) 21.9, Monocytes (%) (Auto) 8.1, Eosinophils (%) (Auto) 6.0H, Basophils (%) (Auto) 1.0, Sodium Level 146H, Potassium Level 3.5, Chloride Level 109H, Carbon Dioxide Level 28, Anion Gap 9, Blood Urea Nitrogen 17, Creatinine 0.8, Estimat Glomerular Filtration Rate > 60, Glucose Level 47L, Calcium Level 9.1, Total Bilirubin 0.4, Aspartate Amino Transf (AST/SGOT) 13L, Alanine Aminotransferase (ALT/SGPT) 23, Alkaline Phosphatase 82, Total Protein 6.1L, Albumin 2.0L, Globulin 4.1, Albumin/Globulin Ratio 0.5L 03/18/20 04:54: POC Whole Blood Glucose [Pending] 03/18/20 05:36: POC Whole Blood Glucose [Pending] 03/18/20 11:42: POC Whole Blood Glucose [Pending] Height (Feet): 5 Height (Inches): 10.00 Weight (Pounds): 207 General Appearance: WD/WN, lethargic, confused EENT: PERRL/EOMI, normal ENT inspection Neck: normal alignment Cardiovascular: normal rate, regular rhythm Respiratory/Chest: chest wall non-tender, lungs clear, normal breath sounds, no respiratory distress Abdomen: normal bowel sounds, non tender, soft, no organomegaly Edema: no edema noted Arm (L), no edema noted Arm (R) Neurologic: disoriented, unresponsive, aphasia Lymphatic: normal anterior cervical (L), normal anterior cervical (R) Assessment/Plan Problem List: (1) Anemia ICD Codes: D64.9 - Anemia, unspecified SNOMED: 736216868 (2) Decubital ulcer ICD Codes: L89.90 - Pressure ulcer of unspecified site, unspecified stage SNOMED: 586760979 (3) Leukocytosis ICD Codes: D72.829 - Elevated white blood cell count, unspecified SNOMED: 412639075 (4) UTI (urinary tract infection) ICD Codes: N39.0 - Urinary tract infection, site not specified SNOMED: 30582408 (5) Pneumonia ICD Codes: J18.9 - Pneumonia, unspecified organism SNOMED: 100015120 (6) Urinary retention ICD Codes: R33.9 - Retention of urine, unspecified SNOMED: 579962778 (7) Pneumonia ICD Codes: J18.9 - Pneumonia, unspecified organism SNOMED: 360654454 (8) Encephalopathy chronic ICD Codes: G93.49 - Encephalopathy chronic SNOMED: 36886836 (9) Diabetes mellitus out of control ICD Codes: E11.9 - Diabetes mellitus out of control SNOMED: 608846198 (10) BPH (benign prostatic hyperplasia) ICD Codes: N40.0 - Benign prostatic hyperplasia without lower urinary tract symptoms SNOMED: 049778705 (11) Stage 4 skin ulcer of sacral region ICD Codes: L98.429 - Non-pressure chronic ulcer of back with unspecified severity SNOMED: 88091030, 846241321 (12) Septicemia (13) Urosepsis Status: stable Assessment/Plan: cont iv abx follow up cultures vent support wean as able suctioning resp rx wound care gt feeds monitor labs insulin coverage message left with Jeremiah Roberts MD Mar 18, 2020 17:22
[2020-03-18 20:00] VITALS: BP 150/80
[2020-03-18] MEDS: Doxazosin 1mg Tab GT SCH (20:21)
[2020-03-18] MEDS: Tamsulosin 0.4mg cap ORAL SCH (20:21)
[2020-03-18] MEDS: Dyna-Hex 2% Top Sol 2oz TOPIC SCH (20:22)
--- NOTE | 2020-03-18 20:53 | General Progress Note ---
Subjective Allergies: Coded Allergies: No Known Allergies (Unverified , 02/11/13) Subjective calm unresponsive on TF some GT site leak note per RN Objective Last 24 Hour Vital Signs Date Time Temp Pulse Resp B/P (MAP) Pulse Ox O2 Delivery O2 Flow Rate FiO2 03/18/20 20:21 86 150/80 03/18/20 20:00 Mechanical Ventilator 03/18/20 20:00 40 03/18/20 20:00 98.6 86 20 150/80 (103) 100 03/18/20 19:12 96 16 40 03/18/20 17:54 83 113/64 03/18/20 16:45 83 21 40 03/18/20 16:00 98.4 74 18 113/64 (80) 100 03/18/20 16:00 Mechanical Ventilator 03/18/20 16:00 69 03/18/20 16:00 40 03/18/20 13:52 134/75 03/18/20 12:55 73 16 40 03/18/20 12:00 98.9 74 18 134/75 (94) 96 03/18/20 12:00 40 03/18/20 12:00 Mechanical Ventilator 03/18/20 12:00 73 03/18/20 11:06 84 128/69 03/18/20 10:51 84 22 40 03/18/20 10:36 67 128/69 03/18/20 09:00 67 16 40 03/18/20 08:09 79 16 40 03/18/20 08:00 40 03/18/20 08:00 98.6 78 18 128/69 (88) 95 03/18/20 08:00 77 03/18/20 08:00 Mechanical Ventilator 03/18/20 04:59 127/72 03/18/20 04:00 Mechanical Ventilator 03/18/20 04:00 98.2 82 18 127/72 (90) 99 03/18/20 04:00 40 03/18/20 03:41 79 03/18/20 03:25 86 16 40 03/18/20 00:00 40 03/18/20 00:00 Mechanical Ventilator 03/18/20 00:00 98.3 80 18 118/65 (82) 98 03/17/20 23:31 82 03/17/20 23:23 83 17 40 03/17/20 23:13 123/73 03/17/20 23:07 81 123/73 Intake and Output 03/17/20 03/18/20 19:00 07:00 Intake Total 472.5 ml 672.416 ml Output Total 950 ml 1400 ml Balance -477.5 ml -727.584 ml Free Water 50 ml IV Total 27.5 ml 532.416 ml Tube Feeding 395 ml 90 ml Other 50 ml Output Urine Total 950 ml 1400 ml # Bowel Movements 1 1 Laboratory Tests 03/17/20 23:39: POC Whole Blood Glucose [Pending] 03/18/20 04:08: White Blood Count 14.2H, Red Blood Count 3.27L, Hemoglobin 8.6L, Hematocrit 27.1L, Mean Corpuscular Volume 83, Mean Corpuscular Hemoglobin 26.1L, Mean Corpuscular Hemoglobin Concent 31.5L, Red Cell Distribution Width 16.5H, Platelet Count 423, Mean Platelet Volume 9.1, Neutrophils (%) (Auto) 63.0, Lymphocytes (%) (Auto) 21.9, Monocytes (%) (Auto) 8.1, Eosinophils (%) (Auto) 6.0H, Basophils (%) (Auto) 1.0, Sodium Level 146H, Potassium Level 3.5, Chloride Level 109H, Carbon Dioxide Level 28, Anion Gap 9, Blood Urea Nitrogen 17, Creatinine 0.8, Estimat Glomerular Filtration Rate > 60, Glucose Level 47L, Calcium Level 9.1, Total Bilirubin 0.4, Aspartate Amino Transf (AST/SGOT) 13L, Alanine Aminotransferase (ALT/SGPT) 23, Alkaline Phosphatase 82, Total Protein 6.1L, Albumin 2.0L, Globulin 4.1, Albumin/Globulin Ratio 0.5L 03/18/20 04:54: POC Whole Blood Glucose [Pending] 03/18/20 05:36: POC Whole Blood Glucose [Pending] 03/18/20 11:42: POC Whole Blood Glucose [Pending] 03/18/20 17:27: POC Whole Blood Glucose 106 Height (Feet): 5 Height (Inches): 10.00 Weight (Pounds): 207 Objective Elderly man NCAT supple CTA RR abd distended, (+) abd wall hernia (+) GT with some GT site acid dermatitis, improved no edema Assessment/Plan Status: stable Assessment/Plan: Assessment - Anoxic encephalopathy - dysphagia / s/p GT - GT site acid dermatitis - Resp failure, s/p trach - CVA - HTN - DM - Leukocytosis, sepsis - Osteo - Poor px Recommendations - s/p GT change - GT feeds - Monitor GT for leaking - Increase GT dressing change to TID - GT site care - Elevate HOB - x Rose Carranza MD Mar 18, 2020 20:53
[2020-03-19] VITALS: BP 114/78
--- NOTE | 2020-03-19 01:26 | Cardiology Progress Note ---
Subjective DATE OF SERVICE: Mar 18, 2020 On vent support via trach Defervesced Urine culture + yeast Monitor: sinus/sinus tachycardia Na+ levels up Objective Last 24 Hour Vital Signs Date Time Temp Pulse Resp B/P (MAP) Pulse Ox O2 Delivery O2 Flow Rate FiO2 03/19/20 00:00 Mechanical Ventilator 03/19/20 00:00 97.5 81 22 114/78 (90) 100 03/19/20 00:00 40 03/18/20 23:29 77 03/18/20 22:40 78 16 40 03/18/20 21:34 119/60 03/18/20 20:21 86 150/80 03/18/20 20:00 Mechanical Ventilator 03/18/20 20:00 40 03/18/20 20:00 98.6 86 20 150/80 (103) 100 03/18/20 19:20 82 03/18/20 19:12 96 16 40 03/18/20 17:54 83 113/64 03/18/20 16:45 83 21 40 03/18/20 16:00 98.4 74 18 113/64 (80) 100 03/18/20 16:00 Mechanical Ventilator 03/18/20 16:00 69 03/18/20 16:00 40 03/18/20 13:52 134/75 03/18/20 12:55 73 16 40 03/18/20 12:00 98.9 74 18 134/75 (94) 96 03/18/20 12:00 40 03/18/20 12:00 Mechanical Ventilator 03/18/20 12:00 73 03/18/20 11:06 84 128/69 03/18/20 10:51 84 22 40 03/18/20 10:36 67 128/69 03/18/20 09:00 67 16 40 03/18/20 08:09 79 16 40 03/18/20 08:00 40 03/18/20 08:00 98.6 78 18 128/69 (88) 95 03/18/20 08:00 77 03/18/20 08:00 Mechanical Ventilator 03/18/20 04:59 127/72 03/18/20 04:00 Mechanical Ventilator 03/18/20 04:00 98.2 82 18 127/72 (90) 99 03/18/20 04:00 40 03/18/20 03:41 79 03/18/20 03:25 86 16 40 ROS: no change from my dictation of 03/15/20 HEENT: Mechanically Ventilated, Thick Trach secretions RHYTHM: NSR, ST LUNGS: bilateral rhonchi CARDIAC: regular rhythm, normal S1 and S2, rapid rate, tachycardia ABDOMEN: non tender, soft, no organomegaly, G-Tube intact EXTREMITIES: non-tender, No edema, other - sacral decub; Neuro unresponsive Laboratory Tests Test 03/18/20 04:08 03/18/20 04:54 03/18/20 05:36 03/18/20 11:42 White Blood Count 14.2 K/UL (4.8-10.8) H Red Blood Count 3.27 M/UL (4.70-6.10) L Hemoglobin 8.6 G/DL (14.2-18.0) L Hematocrit 27.1 % (42.0-52.0) L Mean Corpuscular Volume 83 FL (80-99) Mean Corpuscular Hemoglobin 26.1 PG (27.0-31.0) L Mean Corpuscular Hemoglobin Concent 31.5 G/DL (32.0-36.0) L Red Cell Distribution Width 16.5 % (11.6-14.8) H Platelet Count 423 K/UL (150-450) Mean Platelet Volume 9.1 FL (6.5-10.1) Neutrophils (%) (Auto) 63.0 % (45.0-75.0) Lymphocytes (%) (Auto) 21.9 % (20.0-45.0) Monocytes (%) (Auto) 8.1 % (1.0-10.0) Eosinophils (%) (Auto) 6.0 % (0.0-3.0) H Basophils (%) (Auto) 1.0 % (0.0-2.0) Sodium Level 146 MMOL/L (136-145) H Potassium Level 3.5 MMOL/L (3.5-5.1) Chloride Level 109 MMOL/L (98-107) H Carbon Dioxide Level 28 MMOL/L (21-32) Anion Gap 9 mmol/L (5-15) Blood Urea Nitrogen 17 mg/dL (7-18) Creatinine 0.8 MG/DL (0.55-1.30) Estimat Glomerular Filtration Rate > 60 mL/min (>60) Glucose Level 47 MG/DL (74-106) L Calcium Level 9.1 MG/DL (8.5-10.1) Total Bilirubin 0.4 MG/DL (0.2-1.0) Aspartate Amino Transf (AST/SGOT) 13 U/L (15-37) L Alanine Aminotransferase (ALT/SGPT) 23 U/L (12-78) Alkaline Phosphatase 82 U/L (46-116) Total Protein 6.1 G/DL (6.4-8.2) L Albumin 2.0 G/DL (3.4-5.0) L Globulin 4.1 g/dL Albumin/Globulin Ratio 0.5 (1.0-2.7) L POC Whole Blood Glucose Pending Pending Pending Test 03/18/20 17:27 03/18/20 22:56 POC Whole Blood Glucose 106 MG/DL (74-106) Pending Microbiology Date/Time Source Procedure Growth Status 03/16/20 16:05 Sputum Gram Stain - Final Resulted 03/16/20 16:05 Sputum Culture - Preliminary Gram Negative Bacillus 1 Gram Negative Bacillus 2 Resulted Assessment/Plan Assessment/Plan Severe sepsis Fungal cystitis Respiratory failure with trach Chronic encephalopathy HC assoc PNA Hypertension/HHC Acute/chronic diastolic CHF Anemia Dysphagia with GTube Dehydration/hypernatremia Anti-fungal therapy Vent Resp Rx Trend BNP; adjust fluids accordingly - will give free water by IV route and Gtube DVT prophyl Nutritional support by Brady Felipe MD Mar 19, 2020 01:26
[2020-03-19 04:00] VITALS: BP 123/69
[2020-03-19] MEDS: NovoLOG Insulin Flexpen SUBQ SCH ×4 (05:01→23:00)
[2020-03-19] MEDS: Piperacillin/Tazobactam 3.375 GM in NS 110 ML IVPB SCH ×3 (05:12→21:17)
[2020-03-19] MEDS: HydrALAZINE 50mg tab GT SCH ×3 (05:16→21:18)
[2020-03-19 08:00] VITALS: BP 136/73
--- NOTE | 2020-03-19 09:48 | Pulmonology Progress Note ---
Subjective ROS Limited/Unobtainable: Yes Allergies: Coded Allergies: No Known Allergies (Unverified , 02/11/13) All Systems: reviewed and negative except above Subjective cultures noted all reviewed on vent NAD Objective Last 24 Hour Vital Signs Date Time Temp Pulse Resp B/P (MAP) Pulse Ox O2 Delivery O2 Flow Rate FiO2 03/19/20 08:00 98.2 76 16 136/73 (94) 100 03/19/20 06:40 56 16 40 03/19/20 05:16 102/60 03/19/20 04:00 Mechanical Ventilator 03/19/20 04:00 98.4 75 18 123/69 (87) 100 03/19/20 04:00 40 03/19/20 03:51 70 03/19/20 03:39 75 16 40 03/19/20 00:00 Mechanical Ventilator 03/19/20 00:00 97.5 81 22 114/78 (90) 100 03/19/20 00:00 40 03/18/20 23:29 77 03/18/20 22:40 78 16 40 03/18/20 21:34 119/60 03/18/20 20:21 86 150/80 03/18/20 20:00 Mechanical Ventilator 03/18/20 20:00 40 03/18/20 20:00 98.6 86 20 150/80 (103) 100 03/18/20 19:20 82 03/18/20 19:12 96 16 40 03/18/20 17:54 83 113/64 03/18/20 16:45 83 21 40 03/18/20 16:00 98.4 74 18 113/64 (80) 100 03/18/20 16:00 Mechanical Ventilator 03/18/20 16:00 69 03/18/20 16:00 40 03/18/20 13:52 134/75 03/18/20 12:55 73 16 40 03/18/20 12:00 98.9 74 18 134/75 (94) 96 03/18/20 12:00 40 03/18/20 12:00 Mechanical Ventilator 03/18/20 12:00 73 03/18/20 11:06 84 128/69 03/18/20 10:51 84 22 40 03/18/20 10:36 67 128/69 Intake and Output 03/18/20 03/19/20 18:59 06:59 Intake Total 770.0 ml 1032.5 ml Output Total 1202 ml 1250 ml Balance -432.0 ml -217.5 ml Free Water 300 ml 200 ml IV Total 110.0 ml 437.5 ml Tube Feeding 360 ml 395 ml Output Urine Total 1200 ml 1250 ml Stool Total 1 ml Chest Tube Drainage Total 1 ml Objective WDWN NAD trach clear breath sounds bilaterally without rhonchi or wheeze [id number] without MRG NABS nontender no distention; gt no CCE nonfocal poor LOC krishnan Microbiology Date/Time Source Procedure Growth Status 03/16/20 16:05 Sputum Gram Stain - Final Resulted 03/16/20 16:05 Sputum Culture - Preliminary Gram Negative Bacillus 1 Gram Negative Bacillus 2 Resulted Laboratory Tests 03/18/20 11:42: POC Whole Blood Glucose [Pending] 03/18/20 17:27: POC Whole Blood Glucose 106 03/18/20 22:56: POC Whole Blood Glucose [Pending] 03/19/20 04:48: POC Whole Blood Glucose 116H Current Medications Medications (Trade) Dose Ordered Sig/Magda Route PRN Reason Start Time Stop Time Status Last Admin Dose Admin Acetaminophen (Tylenol) 650 mg DAILY PRN ORAL pain mgt 03/15/20 16:00 04/14/20 15:59 03/15/20 20:15 Amlodipine Besylate (Norvasc) 5 mg BID GT 03/15/20 18:00 04/14/20 17:59 03/18/20 17:54 Ascorbic Acid (Vitamin C) 500 mg DAILY GT 03/16/20 09:00 04/15/20 08:59 03/18/20 10:46 Bisacodyl (Dulcolax) 10 mg DAILY PRN RECTAL Constipation 03/15/20 16:00 06/13/20 15:59 Calcium Carbonate (Calcium Carbonate) 650 mg DAILY GT 03/16/20 09:00 06/14/20 08:59 03/18/20 10:36 Chlorhexidine Gluconate (Ingris-Hex 2%) 1 applic DAILY@1999 TOPIC 03/16/20 20:00 06/14/20 19:59 03/18/20 20:22 Clonidine HCl (Catapres Tab) 0.1 mg Q6H PRN GT HTN SBP > 160 03/15/20 16:00 06/13/20 15:59 Dextrose (Dextrose 50%) 25 ml Q30M PRN IV Hypoglycemia 03/15/20 16:00 06/13/20 15:59 Dextrose (Dextrose 50%) 50 ml Q30M PRN IV Hypoglycemia 03/15/20 16:00 06/13/20 15:59 03/18/20 05:04 Docusate Sodium (Colace) 100 mg TWICE A DAY GT 03/16/20 09:00 04/15/20 08:59 03/18/20 17:54 Doxazosin Mesylate (Cardura) 2 mg BEDTIME GT 03/15/20 21:00 04/14/20 20:59 03/18/20 20:21 Finasteride (Proscar) 5 mg DAILY ORAL 03/16/20 09:00 06/14/20 08:59 03/18/20 11:06 Fluconazole (Diflucan) 100 mg DAILY GT 03/16/20 09:00 03/23/20 08:59 03/18/20 11:06 Heparin Sodium (Porcine) (Heparin 5000 units/ml) 5,000 units EVERY 12 HOURS SUBQ 03/15/20 21:00 04/29/20 20:59 03/18/20 20:25 Hydralazine HCl (Apresoline) 50 mg EVERY 8 HOURS GT 03/15/20 22:00 06/13/20 21:59 03/18/20 21:34 Insulin Aspart (NovoLOG) EVERY 6 HOURS SUBQ 03/18/20 00:00 06/13/20 16:29 Insulin Detemir (Levemir) 20 units BID SUBQ 03/18/20 09:00 06/16/20 08:59 03/18/20 18:00 Magnesium Hydroxide (Mom) 30 ml BEDTIME PRN GT Constipation 03/15/20 16:00 04/14/20 15:59 Metoprolol Tartrate (Lopressor) 25 mg EVERY 12 HOURS GT 03/15/20 21:00 06/13/20 20:59 03/18/20 20:21 Piperacillin Sod/ Tazobactam Sod 3.375 gm/Sodium Chloride 110 ml @ 27.5 mls/hr EVERY 8 HOURS IVPB 03/15/20 22:00 03/20/20 21:59 03/19/20 05:12 Saccharomyces Boulardii (Florastor) 250 mg TWICE A DAY GT 03/15/20 18:00 06/13/20 17:59 03/18/20 17:54 Sodium Phosphate (Fleet's Sodium Phosl Enema) 133 ml DAILYPRN PRN RECTAL Constipation 03/15/20 16:00 04/14/20 15:59 Tamsulosin HCl (Flomax) 0.4 mg BEDTIME ORAL 03/15/20 21:00 04/14/20 20:59 03/18/20 20:21 Zinc Oxide (Zinc Oxide) 1 applic THREE TIMES A DAY TOPIC 03/15/20 18:00 06/13/20 17:59 03/18/20 17:55 Assessment/Plan Assessment/Plan IMPRESSION respiratory failure chronic osteomyelitis leukocytosis anemia trach GT chronic encephalopathy PLAN IV antibiotics reviewed cultures care noted respiratory care may try off vent as prior monitor oxygen needs wound care as is and position change feeds off load and wound care monitor HH transfuse PRN monitor wbc and proceed with dc if cleared by ID impression, plan, and exam edited and reviewed in detail care discussed with Silver Correa MD Mar 19, 2020 09:48
[2020-03-19] MEDS: Heparin 5000 units/ml inj SUBQ SCH ×2 (09:52→20:15)
[2020-03-19] MEDS: Docusate 100mg/10ml Liq GT SCH ×2 (09:52→17:14)
[2020-03-19] MEDS: Calcium Carbonate 650mg Tab GT SCH (09:53)
[2020-03-19] MEDS: Ascorbic Acid 500mg tab GT SCH (09:54)
[2020-03-19] MEDS: Fluconazole 100mg tab GT SCH (09:57)
[2020-03-19] MEDS: Levemir Flexpen SUBQ SCH ×2 (10:03→17:20)
[2020-03-19] MEDS: Zinc Oxide Oint 2oz TOPIC SCH ×3 (10:04→17:21)
--- NOTE | 2020-03-19 10:48 | Infectious Diseases Prog Note ---
"Assessment/Plan Assessment/Plan 1. Streptococcus | fungal UTI 2. Gram negative pneumonia 3. Ventilator dependent respiratory failure 4. Diabetes mellitus 5. Hypertension 6. COPD P 1. Continue Zosyn 2. Discontinue fluconazole 3. will follow up cultures Subjective ROS Limited/Unobtainable: Yes Constitutional: Denies: fever Allergies: Coded Allergies: No Known Allergies (Unverified , 02/11/13) Objective Last 24 Hour Vital Signs Date Time Temp Pulse Resp B/P (MAP) Pulse Ox O2 Delivery O2 Flow Rate FiO2 03/19/20 09:58 76 136/73 03/19/20 09:57 76 136/73 03/19/20 08:00 98.2 76 16 136/73 (94) 100 03/19/20 06:40 56 16 40 03/19/20 05:16 102/60 03/19/20 04:00 Mechanical Ventilator 03/19/20 04:00 98.4 75 18 123/69 (87) 100 03/19/20 04:00 40 03/19/20 03:51 70 03/19/20 03:39 75 16 40 03/19/20 00:00 Mechanical Ventilator 03/19/20 00:00 97.5 81 22 114/78 (90) 100 03/19/20 00:00 40 03/18/20 23:29 77 03/18/20 22:40 78 16 40 03/18/20 21:34 119/60 03/18/20 20:21 86 150/80 03/18/20 20:00 Mechanical Ventilator 03/18/20 20:00 40 03/18/20 20:00 98.6 86 20 150/80 (103) 100 03/18/20 19:20 82 03/18/20 19:12 96 16 40 03/18/20 17:54 83 113/64 03/18/20 16:45 83 21 40 03/18/20 16:00 98.4 74 18 113/64 (80) 100 03/18/20 16:00 Mechanical Ventilator 03/18/20 16:00 69 03/18/20 16:00 40 03/18/20 13:52 134/75 03/18/20 12:55 73 16 40 03/18/20 12:00 98.9 74 18 134/75 (94) 96 03/18/20 12:00 40 03/18/20 12:00 Mechanical Ventilator 03/18/20 12:00 73 03/18/20 11:06 84 128/69 03/18/20 10:51 84 22 40 Height (Feet): 5 Height (Inches): 10.00 Weight (Pounds): 207 General Appearance: no acute distress HEENT: mucous membranes moist, status post trach Respiratory/Chest: lungs clear, other - on ventilator Cardiovascular: normal rate, other - left arm PICC line Abdomen: soft, non tender, other - GT feeding Extremities: other - mild edema Neurologic/Psychiatric: unresponsiveness, aphasia Microbiology Date/Time Source Procedure Growth Status 03/16/20 16:05 Sputum Gram Stain - Final Resulted 03/16/20 16:05 Sputum Culture - Preliminary Gram Negative Bacillus 1 Gram Negative Bacillus 2 Resulted Laboratory Tests Test 03/18/20 11:42 03/18/20 17:27 03/18/20 22:56 03/19/20 04:48 POC Whole Blood Glucose Pending 106 MG/DL (74-106) Pending 116 MG/DL (74-106) H Current Medications Medications (Trade) Dose Ordered Sig/Magda Route PRN Reason Start Time Stop Time Status Last Admin Dose Admin Acetaminophen (Tylenol) 650 mg DAILY PRN ORAL pain mgt 03/15/20 16:00 04/14/20 15:59 03/15/20 20:15 Amlodipine Besylate (Norvasc) 5 mg BID GT 03/15/20 18:00 04/14/20 17:59 03/19/20 09:57 Ascorbic Acid (Vitamin C) 500 mg DAILY GT 03/16/20 09:00 04/15/20 08:59 03/19/20 09:54 Bisacodyl (Dulcolax) 10 mg DAILY PRN RECTAL Constipation 03/15/20 16:00 06/13/20 15:59 Calcium Carbonate (Calcium Carbonate) 650 mg DAILY GT 03/16/20 09:00 06/14/20 08:59 03/19/20 09:53 Chlorhexidine Gluconate (Ingris-Hex 2%) 1 applic DAILY@2000 TOPIC 03/16/20 20:00 06/14/20 19:59 03/18/20 20:22 Clonidine HCl (Catapres Tab) 0.1 mg Q6H PRN GT HTN SBP > 160 03/15/20 16:00 06/13/20 15:59 Dextrose (Dextrose 50%) 25 ml Q30M PRN IV Hypoglycemia 03/15/20 16:00 06/13/20 15:59 Dextrose (Dextrose 50%) 50 ml Q30M PRN IV Hypoglycemia 03/15/20 16:00 06/13/20 15:59 03/18/20 05:04 Docusate Sodium (Colace) 100 mg TWICE A DAY GT 03/16/20 09:00 04/15/20 08:59 03/19/20 09:52 Doxazosin Mesylate (Cardura) 2 mg BEDTIME GT 03/15/20 21:00 04/14/20 20:59 03/18/20 20:21 Finasteride (Proscar) 5 mg DAILY ORAL 03/16/20 09:00 06/14/20 08:59 03/19/20 09:57 Fluconazole (Diflucan) 100 mg DAILY GT 03/16/20 09:00 03/23/20 08:59 03/19/20 09:57 Heparin Sodium (Porcine) (Heparin 5000 units/ml) 5,000 units EVERY 12 HOURS SUBQ 03/15/20 21:00 04/29/20 20:59 03/19/20 09:52 Hydralazine HCl (Apresoline) 50 mg EVERY 8 HOURS GT 03/15/20 22:00 06/13/20 21:59 03/18/20 21:34 Insulin Aspart (NovoLOG) EVERY 6 HOURS SUBQ 03/18/20 00:00 06/13/20 16:29 Insulin Detemir (Levemir) 20 units BID SUBQ 03/18/20 09:00 06/16/20 08:59 03/19/20 10:03 Magnesium Hydroxide (Mom) 30 ml BEDTIME PRN GT Constipation 03/15/20 16:00 04/14/20 15:59 Metoprolol Tartrate (Lopressor) 25 mg EVERY 12 HOURS GT 03/15/20 21:00 06/13/20 20:59 03/19/20 09:58 Piperacillin Sod/ Tazobactam Sod 3.375 gm/Sodium Chloride 110 ml @ 27.5 mls/hr EVERY 8 HOURS IVPB 03/15/20 22:00 03/20/20 21:59 9/24/20 05:12 Saccharomyces Boulardii (Florastor) 250 mg TWICE A DAY GT 03/15/20 18:00 06/13/20 17:59 03/19/20 09:53 Sodium Phosphate (Fleet's Sodium Phosl Enema) 133 ml DAILYPRN PRN RECTAL Constipation 03/15/20 16:00 04/14/20 15:59 Tamsulosin HCl (Flomax) 0.4 mg BEDTIME ORAL 03/15/20 21:00 04/14/20 20:59 03/18/20 20:21 Zinc Oxide (Zinc Oxide) 1 applic THREE TIMES A DAY TOPIC 03/15/20 18:00 06/13/20 17:59 03/19/20 10:04 Kuldip Rosado MD Mar 19, 2020 10:47"
[2020-03-19 12:00] VITALS: BP 116/72
--- NOTE | 2020-03-19 13:43 | Surgery Progress Note ---
Surgery Progress Note Subjective Additional Comments afebrile HD stable labs improved no n/v Objective Last 24 Hour Vital Signs Date Time Temp Pulse Resp B/P (MAP) Pulse Ox O2 Delivery O2 Flow Rate FiO2 03/19/20 12:00 Mechanical Ventilator 03/19/20 12:00 98.4 74 18 116/72 (87) 100 03/19/20 12:00 66 03/19/20 12:00 40 03/19/20 10:39 74 18 40 03/19/20 09:58 76 136/73 03/19/20 09:57 76 136/73 03/19/20 08:00 Mechanical Ventilator 03/19/20 08:00 40 03/19/20 08:00 77 03/19/20 08:00 98.2 76 16 136/73 (94) 100 03/19/20 06:40 56 16 40 03/19/20 05:16 102/60 03/19/20 04:00 Mechanical Ventilator 03/19/20 04:00 98.4 75 18 123/69 (87) 100 03/19/20 04:00 40 03/19/20 03:51 70 03/19/20 03:39 75 16 40 03/19/20 00:00 Mechanical Ventilator 03/19/20 00:00 97.5 81 22 114/78 (90) 100 03/19/20 00:00 40 03/18/20 23:29 77 03/18/20 22:40 78 16 40 03/18/20 21:34 119/60 03/18/20 20:21 86 150/80 03/18/20 20:00 Mechanical Ventilator 03/18/20 20:00 40 03/18/20 20:00 98.6 86 20 150/80 (103) 100 03/18/20 19:20 82 03/18/20 19:12 96 16 40 03/18/20 17:54 83 113/64 03/18/20 16:45 83 21 40 03/18/20 16:00 98.4 74 18 113/64 (80) 100 03/18/20 16:00 Mechanical Ventilator 03/18/20 16:00 69 03/18/20 16:00 40 03/18/20 13:52 134/75 I&O Intake and Output 03/18/20 03/19/20 19:00 07:00 Intake Total 770.0 ml 1002.5 ml Output Total 1202 ml 1250 ml Balance -432.0 ml -247.5 ml Free Water 300 ml 200 ml IV Total 110.0 ml 437.5 ml Tube Feeding 360 ml 365 ml Output Urine Total 1200 ml 1250 ml Stool Total 1 ml Chest Tube Drainage Total 1 ml Dressing: saturated, other Wound: other Cardiovascular: RSR Respiratory: decreased breath sounds Abdomen: soft, non-tender, present bowel sounds, other Extremities: no tenderness, no cyanosis Laboratory Tests Test 03/18/20 17:27 03/18/20 22:56 03/19/20 04:48 03/19/20 11:42 POC Whole Blood Glucose 106 MG/DL (74-106) Pending 116 MG/DL (74-106) H 150 MG/DL (74-106) H Plan Problems: (1) Anemia (2) Decubital ulcer Assessment & Plan: Patient presented admission with a stage IV sacral decubitus ulcer and deep tissue injury wound with maceration of skin as well as into the buttock. Wound evaluated bedside with care team. Care plan and dressings applied. Thera honey initiated. Will follow with recommendations and care plan. Pt presented on admission with Tracheostomy,Erosion at GT site, Multiple Pressure injuries. Skin assessed around collar of trach and no areas of skin breakdown noted. Insertion site and Peristomal GT erythematous and macerated. Silver Nitrate x1 application applied. Full Thickness Pressure Injury with tunneling R Buttocks (L)5.8cm x (W)3.4cm x (D)2.7cm,Tunneling clockwise 11-12 by 3.9cm @12 o'clock. Beefy granulation at base of wound.Bone is palpable at base of wound. Edges are flat and adherent to base of wound. [place] epithelial with scattered areas of hyperpigmentation periwound. Small amt sanguineous exudate noted. No odor noted. Partial thickness wounds in L shape formation noted R buttocks in close proximity to above wound. Marginal erythema along borders. (L)9.2cm x (W)5.5cm. Small amt serosanguineous exudate noted. Partially opened DTPI Sacrum (L)6.2cm x (W)3.3cm. Base of wound is purpuric and fluctuant with macerated borders including periwound. Scrotum is erythematous. Non-Blanchable erythema without fluctuance or induration R and L heels. Tx.Plan: Cleanse Sacral wound with Saline. Apply TheraHoney. Apply Moisture Barrier Paste periwound. Cover with Optifoam Drsg Daily and prn. Cleanse wound R Buttocks with Saline. Loosely pack with Therahoney impregnated Kerlix. Apply Moisture Barrier Paste periwound. Cover with Optifoam drsg. Change Daily and Prn. Apply Moisture Barrier paste to wound Outer R Buttocks. Cover with Optifoam drsg. Change every 3 days and prn. Apply Moisture Barrier Paste to Scrotum and groin area with each Incontinence care. Cleanse GT site with soap and water. Pat dry. Apply Zinc Oxide Paste to GT Site BID. Apply Cavilon Skin Barrier to both heels and Malleoli. Cover each site with Optifoam drsgs. Change every 7 days and prn. Reposition at least every 2hours or as tolerated. Off-load heels with pillow. APM/DALTON Mattress overlay. (3) Leukocytosis Assessment & Plan: There appears to be a large open wound in the inferomedial right buttock adjacent to the right ischium. There are a few gas bubbles within the soft tissues subjacent to this. No discrete fluid collection demonstrated. There is some infiltration of the tissues lateral to the ischium. There is evidence of cortical erosion and bone loss of posterior and inferior ischium, consistent with osteomyelitis. on abx picc cont tx micro reviewed plan repeat CT - as below improved Again demonstrated is a wound in the right ischial region. This appears to contain some packing material. This appears to penetrate much less deeply than on the prior study, as no deep gas bubbles are evident. Density in the area appears to be scar tissue rather than fluid. Again demonstrated is erosion of the adjacent is chium, extent of which appears to be unchanged. Again demonstrated is extensive heterotopic ossification and degenerative change about the left hip. Again demonstrated is a left inguinal hernia that contains only fat. Again demonstrated is broad-based diastasis of the rectus abdominis tendon above the umbilicus, bordering on herniation. There is also a tiny fat-containing umbil ical hernia. There is evidence of prior surgery in the region. There is no evidence of obstruction. There is distention of the rectum by feces. This appears less severe than on the prior study. Again demonstrated is extensive colonic diverticulosis. No evidence of diverticulitis. What appears to be a short normal appendix is evident. No small bowel distention. No free or loculated intraperitoneal gas or fluid is evident. No small bowel wall thickening. There is a gastrostomy in place which appears well-po sitioned. There is evidence of prior gastric surgery. The distal esophagus and duodenum are unremarkable. The gallbladder contains gallstones. Lack of IV contrast limits assessment of the solid organs. The liver is grossly unremarkable. The pancreas is atrophic and nearly completely fatty replaced. The spleen is not demonstrated, although there is evidence of some scattered splenic tissue in the left upper quadrant. The adrenals are unremarkable. Right renal staghorn calculi and other calyceal calculi are again demonstrated. Left renal parapelvic cyst or cysts are again demonstrated. A small peripheral calyceal calculus is also demonstrated in the left kidney. No retroperitoneal or mesenteric mass or adenopathy. The bladder is empty, contains a Peters catheter. Calculi are again demonstrated within the bladder. The prostate is enlarged. The lung bases demonstrate considerable consolidation involving the right lower lobe. There is also a component of volume loss. There is some posterior dependent atelectasis of the left lung as well. The bones demonstrate degenerative spondylosis changes, appearing similar to the previous study. There is a stable mild compression fracture deformity of the L3 vertebral body. Impression: Right ischial region wound, consistent with known clinical history of decubitus changes in this area. This appears to demonstrate some interim healing since previous study. Stable erosive changes of the adjacent ischium. No definite evidence of abscess, although evaluation for such is limited given the absence of IV contrast administration. Evidence of rectal fecal impaction, less severe than on the previous study. Diverticulosis, also previously reported Cholelithiasis, also previously reported Unchanged right renal staghorn and other calculi, small left renal calculus Right lower lobe consolidation and volume loss. Less extensive atelectasis of the posterior left lung Broad-based diastasis of the rectus abdominis tendon bordering on herniation, nonobstructive, also previously reported Absent spleen. There is evidence of some scattered splenic tissue in the left upper quadrant, also previously reported Other findings as noted, including gastrostomy, evidence of prior gastric surgery, atrophic fatty replaced pancreas, left renal parapelvic cyst or cysts, Peters catheter, enlarged prostate, bladder calculi, degenerative spondylosis, stable L3 vertebral body mild compression fracture deformity (4) UTI (urinary tract infection) (5) Pneumonia (6) Septic shock (7) Urinary retention (8) Hematuria (9) Hematuria (10) Failure to thrive (11) Fecal impaction (12) Hypernatremia (13) Bowel obstruction (14) Bowel obstruction (15) Leukocytosis (16) Respiratory failure (17) Sepsis (18) Sepsis (19) Respiratory failure, chronic (20) SBO (small bowel obstruction) (21) Hypertension (22) Pneumonia (23) [address] (24) Pneumonia (25) Pneumonia (26) Encephalopathy acute (27) Encephalopathy chronic (28) Abnormal laboratory test result (29) Diabetes mellitus out of control (30) BPH (benign prostatic hyperplasia) (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
[2020-03-19 16:00] VITALS: BP 103/54
--- NOTE | 2020-03-19 16:43 | General Progress Note ---
Subjective ROS Limited/Unobtainable: Yes Constitutional: Reports: malaise, weakness HEENT: Reports: no symptoms Cardiovascular: Reports: no symptoms Respiratory: Reports: cough, sputum Gastrointestinal/Abdominal: Reports: difficulty swallowing Genitourinary: Reports: no symptoms Neurologic/Psychiatric: Reports: pre-existing deficit Endocrine: Reports: no symptoms Hematologic/Lymphatic: Reports: anemia Allergies: Coded Allergies: No Known Allergies (Unverified , 02/11/13) All Systems: reviewed and negative except above Subjective no events. no fevers or chills. no sob. poorly responsive. on the vent. on iv abx. wbc improving. no congestion. no bleeding. Objective Last 24 Hour Vital Signs Date Time Temp Pulse Resp B/P (MAP) Pulse Ox O2 Delivery O2 Flow Rate FiO2 03/19/20 14:40 82 16 40 03/19/20 14:05 126/74 03/19/20 12:00 Mechanical Ventilator 03/19/20 12:00 98.4 74 18 116/72 (87) 100 03/19/20 12:00 66 03/19/20 12:00 40 03/19/20 10:39 74 18 40 03/19/20 09:58 76 136/73 03/19/20 09:57 76 136/73 03/19/20 08:00 Mechanical Ventilator 03/19/20 08:00 40 03/19/20 08:00 77 03/19/20 08:00 98.2 76 16 136/73 (94) 100 03/19/20 06:40 56 16 40 03/19/20 05:16 102/60 03/19/20 04:00 Mechanical Ventilator 03/19/20 04:00 98.4 75 18 123/69 (87) 100 03/19/20 04:00 40 03/19/20 03:51 70 03/19/20 03:39 75 16 40 03/19/20 00:00 Mechanical Ventilator 03/19/20 00:00 97.5 81 22 114/78 (90) 100 03/19/20 00:00 40 03/18/20 23:29 77 03/18/20 22:40 78 16 40 03/18/20 21:34 119/60 03/18/20 20:21 86 150/80 03/18/20 20:00 Mechanical Ventilator 03/18/20 20:00 40 03/18/20 20:00 98.6 86 20 150/80 (103) 100 03/18/20 19:20 82 03/18/20 19:12 96 16 40 03/18/20 17:54 83 113/64 03/18/20 16:45 83 21 40 Intake and Output 03/18/20 03/19/20 19:00 07:00 Intake Total 770.0 ml 1002.5 ml Output Total 1202 ml 1250 ml Balance -432.0 ml -247.5 ml Free Water 300 ml 200 ml IV Total 110.0 ml 437.5 ml Tube Feeding 360 ml 365 ml Output Urine Total 1200 ml 1250 ml Stool Total 1 ml Chest Tube Drainage Total 1 ml Laboratory Tests 03/18/20 17:27: POC Whole Blood Glucose 106 03/18/20 22:56: POC Whole Blood Glucose [Pending] 03/19/20 04:48: POC Whole Blood Glucose 116H 03/19/20 11:42: POC Whole Blood Glucose 150H Height (Feet): 5 Height (Inches): 10.00 Weight (Pounds): 207 Objective General Appearance: WD/WN, lethargic, confused EENT: PERRL/EOMI, normal ENT inspection Neck: normal alignment Cardiovascular: normal rate, regular rhythm Respiratory/Chest: chest wall non-tender, lungs clear, normal breath sounds, no respiratory distress Abdomen: normal bowel sounds, non tender, soft, no organomegaly Edema: no edema noted Arm (L), no edema noted Arm (R) Neurologic: disoriented, unresponsive, aphasia Lymphatic: normal anterior cervical (L), normal anterior cervical (R) Assessment/Plan Problem List: (1) Anemia ICD Codes: D64.9 - Anemia, unspecified SNOMED: 838703372 (2) Decubital ulcer ICD Codes: L89.90 - Pressure ulcer of unspecified site, unspecified stage SNOMED: 456901042 (3) Leukocytosis ICD Codes: D72.829 - Elevated white blood cell count, unspecified SNOMED: 326068595 (4) UTI (urinary tract infection) ICD Codes: N39.0 - Urinary tract infection, site not specified SNOMED: 49651125 (5) Pneumonia ICD Codes: J18.9 - Pneumonia, unspecified organism SNOMED: 361229371 (6) Urinary retention ICD Codes: R33.9 - Retention of urine, unspecified SNOMED: 169767091 (7) Pneumonia ICD Codes: J18.9 - Pneumonia, unspecified organism SNOMED: 748461413 (8) Encephalopathy chronic ICD Codes: G93.49 - Encephalopathy chronic SNOMED: 87889006 (9) Diabetes mellitus out of control ICD Codes: E11.9 - Diabetes mellitus out of control SNOMED: 172274210 (10) BPH (benign prostatic hyperplasia) ICD Codes: N40.0 - Benign prostatic hyperplasia without lower urinary tract symptoms SNOMED: 517910874 (11) Stage 4 skin ulcer of sacral region ICD Codes: L98.429 - Non-pressure chronic ulcer of back with unspecified severity SNOMED: 11519061, 301094827 (12) Septicemia (13) Urosepsis Status: stable Assessment/Plan: cont iv abx follow up cultures vent support wean as able suctioning resp rx wound care gt feeds monitor labs insulin coverage check iron panel and stool ob epogen added Jeremiah Perkins MD Mar 19, 2020 16:43
[2020-03-19 19:04] LABS: % IRON SATURATION 16 % (15-50); IRON 28 ug/dL (50-175); TOTAL IRON BINDING CAPACITY 180 ug/dL (250-450)
[2020-03-19 20:00] VITALS: BP 123/60
[2020-03-19] MEDS: Dyna-Hex 2% Top Sol 2oz TOPIC SCH (20:13)
[2020-03-19] MEDS: Tamsulosin 0.4mg cap ORAL SCH (20:14)
[2020-03-19] MEDS: Doxazosin 1mg Tab GT SCH (20:14)
--- NOTE | 2020-03-19 21:26 | General Progress Note ---
Subjective Allergies: Coded Allergies: No Known Allergies (Unverified , 02/11/13) Subjective calm unresponsive on TF Less GT site leak note per RN Objective Last 24 Hour Vital Signs Date Time Temp Pulse Resp B/P (MAP) Pulse Ox O2 Delivery O2 Flow Rate FiO2 03/19/20 21:18 110/58 03/19/20 20:16 90 123/82 03/19/20 20:00 40 03/19/20 20:00 98.1 82 16 123/60 (81) 97 03/19/20 20:00 Mechanical Ventilator 03/19/20 18:48 80 17 40 03/19/20 17:19 73 127/80 03/19/20 16:00 98.4 76 18 103/54 (70) 100 03/19/20 16:00 40 03/19/20 16:00 Mechanical Ventilator 03/19/20 16:00 76 03/19/20 14:40 82 16 40 03/19/20 14:05 126/74 03/19/20 12:00 Mechanical Ventilator 03/19/20 12:00 98.4 74 18 116/72 (87) 100 03/19/20 12:00 66 03/19/20 12:00 40 03/19/20 10:39 74 18 40 03/19/20 09:58 76 136/73 03/19/20 09:57 76 136/73 03/19/20 08:00 Mechanical Ventilator 03/19/20 08:00 40 03/19/20 08:00 77 03/19/20 08:00 98.2 76 16 136/73 (94) 100 03/19/20 06:40 56 16 40 03/19/20 05:16 102/60 03/19/20 04:00 Mechanical Ventilator 03/19/20 04:00 98.4 75 18 123/69 (87) 100 03/19/20 04:00 40 03/19/20 03:51 70 03/19/20 03:39 75 16 40 03/19/20 00:00 Mechanical Ventilator 03/19/20 00:00 97.5 81 22 114/78 (90) 100 03/19/20 00:00 40 03/18/20 23:29 77 03/18/20 22:40 78 16 40 03/18/20 21:34 119/60 Intake and Output0 03/18/20 03/19/20 18:59 06:59 Intake Total 770.0 ml 1032.5 ml Output Total 1202 ml 1250 ml Balance -432.0 ml -217.5 ml Free Water 300 ml 200 ml IV Total 110.0 ml 437.5 ml Tube Feeding 360 ml 395 ml Output Urine Total 1200 ml 1250 ml Stool Total 1 ml Chest Tube Drainage Total 1 ml Laboratory Tests 03/18/20 22:56: POC Whole Blood Glucose [Pending] 03/19/20 04:48: POC Whole Blood Glucose 116H 03/19/20 11:42: POC Whole Blood Glucose 150H 03/19/20 16:49: POC Whole Blood Glucose 109H 03/19/20 18:23: Iron Level 28L, Total Iron Binding Capacity 180L, Percent Iron Saturation 16, Unsaturated Iron Binding 152 Height (Feet): 5 Height (Inches): 10.00 Weight (Pounds): 207 Objective Elderly man NCAT supple CTA RR abd distended, (+) abd wall hernia (+) GT with some GT site acid dermatitis, improved no edema Assessment/Plan Status: stable Assessment/Plan: Assessment - Anoxic encephalopathy - dysphagia / s/p GT - GT site acid dermatitis - Resp failure, s/p trach - CVA - HTN - DM - Leukocytosis, sepsis - Osteo - Poor px Recommendations - s/p GT change - GT feeds - Monitor GT for leaking - Increase GT dressing change to TID - GT site care - Elevate HOB - x Rose Carranza MD Mar 19, 2020 21:26
[2020-03-20] VITALS: BP 123/72
--- NOTE | 2020-03-20 01:44 | Cardiology Progress Note ---
Subjective DATE OF SERVICE: Mar 19, 2020 On vent support via trach BP trend decreasined Urine culture + yeast Monitor: sinus Objective Last 24 Hour Vital Signs Date Time Temp Pulse Resp B/P (MAP) Pulse Ox O2 Delivery O2 Flow Rate FiO2 03/20/20 00:00 97.9 73 16 123/72 (89) 100 03/20/20 00:00 40 03/20/20 00:00 Mechanical Ventilator 03/19/20 23:30 78 03/19/20 23:13 73 16 40 03/19/20 21:18 110/58 03/19/20 20:16 90 123/82 03/19/20 20:00 40 03/19/20 20:00 98.1 82 16 123/60 (81) 97 03/19/20 20:00 Mechanical Ventilator 03/19/20 19:03 81 03/19/20 18:48 80 17 40 03/19/20 17:19 73 127/80 03/19/20 16:00 98.4 76 18 103/54 (70) 100 03/19/20 16:00 40 03/19/20 16:00 Mechanical Ventilator 03/19/20 16:00 76 03/19/20 14:40 82 16 40 03/19/20 14:05 126/74 03/19/20 12:00 Mechanical Ventilator 03/19/20 12:00 98.4 74 18 116/72 (87) 100 03/19/20 12:00 66 03/19/20 12:00 40 03/19/20 10:39 74 18 40 03/19/20 09:58 76 136/73 03/19/20 09:57 76 136/73 03/19/20 08:00 Mechanical Ventilator 03/19/20 08:00 40 03/19/20 08:00 77 03/19/20 08:00 98.2 76 16 136/73 (94) 100 03/19/20 06:40 56 16 40 03/19/20 05:16 102/60 03/19/20 04:00 Mechanical Ventilator 03/19/20 04:00 98.4 75 18 123/69 (87) 100 03/19/20 04:00 40 03/19/20 03:51 70 03/19/20 03:39 75 16 40 ROS: no change from my dictation of 9/20/20 HEENT: Mechanically Ventilated, Thick Trach secretions RHYTHM: NSR LUNGS: bilateral rhonchi CARDIAC: regular rhythm, normal S1 and S2, rapid rate, tachycardia ABDOMEN: non tender, soft, no organomegaly, G-Tube intact EXTREMITIES: non-tender, No edema, other - sacral decub; Neuro unresponsive Laboratory Tests Test 03/19/20 04:48 03/19/20 11:42 03/19/20 16:49 03/19/20 18:23 POC Whole Blood Glucose 116 MG/DL (74-106) H 150 MG/DL (74-106) H 109 MG/DL (74-106) H Iron Level 28 ug/dL (50-175) L Total Iron Binding Capacity 180 ug/dL (250-450) L Percent Iron Saturation 16 % (15-50) Unsaturated Iron Binding 152 ug/dL (112-346) Test 03/19/20 22:28 POC Whole Blood Glucose Pending Assessment/Plan Assessment/Plan Severe sepsis Fungal cystitis Respiratory failure with trach Chronic encephalopathy HC assoc PNA Hypertension/HHC now with lower BP trend Acute/chronic diastolic CHF Anemia Dysphagia with GTube Dehydration/hypernatremia Anti-fungal therapy Vent Resp Rx Trend BNP; adjust fluids accordingly - will give free water by IV route and Gtube DVT prophyl Nutritional support by Gtube decrease amlodipine dose Brady Burks MD Mar 20, 2020 01:44
[2020-03-20 04:00] VITALS: BP 131/77
[2020-03-20] MEDS: NovoLOG Insulin Flexpen SUBQ SCH ×4 (05:02→23:11)
[2020-03-20] MEDS: Piperacillin/Tazobactam 3.375 GM in NS 110 ML IVPB SCH ×3 (05:02→21:18)
[2020-03-20] MEDS: HydrALAZINE 50mg tab GT SCH ×3 (05:04→21:18)
[2020-03-20 08:00] VITALS: BP 127/68
--- NOTE | 2020-03-20 08:17 | Pulmonology Progress Note ---
Subjective ROS Limited/Unobtainable: Yes Constitutional: Denies: fever Allergies: Coded Allergies: No Known Allergies (Unverified , 02/11/13) All Systems: reviewed and negative except above Subjective cultures noted all reviewed on vent NAD Objective Last 24 Hour Vital Signs Date Time Temp Pulse Resp B/P (MAP) Pulse Ox O2 Delivery O2 Flow Rate FiO2 03/20/20 08:00 Mechanical Ventilator 03/20/20 08:00 40 03/20/20 05:04 131/77 03/20/20 04:00 40 03/20/20 04:00 Mechanical Ventilator 03/20/20 04:00 97.8 77 16 131/77 (95) 100 03/20/20 03:34 68 03/20/20 03:18 58 16 40 03/20/20 00:00 97.9 73 16 123/72 (89) 100 03/20/20 00:00 40 03/20/20 00:00 Mechanical Ventilator 03/19/20 23:30 78 03/19/20 23:13 73 16 40 03/19/20 21:18 110/58 03/19/20 20:16 90 123/82 03/19/20 20:00 40 03/19/20 20:00 98.1 82 16 123/60 (81) 97 03/19/20 20:00 Mechanical Ventilator 03/19/20 19:03 81 03/19/20 18:48 80 17 40 03/19/20 17:19 73 127/80 03/19/20 16:00 98.4 76 18 103/54 (70) 100 03/19/20 16:00 40 03/19/20 16:00 Mechanical Ventilator 03/19/20 16:00 76 03/19/20 14:40 82 16 40 03/19/20 14:05 126/74 03/19/20 12:00 Mechanical Ventilator 03/19/20 12:00 98.4 74 18 116/72 (87) 100 03/19/20 12:00 66 03/19/20 12:00 40 03/19/20 10:39 74 18 40 03/19/20 09:58 76 136/73 03/19/20 09:57 76 136/73 Intake and Output 03/19/20 03/20/20 19:00 07:00 Intake Total 1162.5 ml 895.0 ml Output Total 1000 ml 1400 ml Balance 162.5 ml -505.0 ml Free Water 290 ml 300 ml IV Total 392.5 ml 110.0 ml Tube Feeding 480 ml 485 ml Output Urine Total 1000 ml 1400 ml # Bowel Movements 1 Objective WDWN NAD trach clear breath sounds bilaterally without rhonchi or wheeze [id number] without MRG NABS nontender no distention; gt no CCE nonfocal poor LOC krishnan Laboratory Tests 03/19/20 11:42: POC Whole Blood Glucose 150H 03/19/20 16:49: POC Whole Blood Glucose 109H 03/19/20 18:23: Iron Level 28L, Total Iron Binding Capacity 180L, Percent Iron Saturation 16, Unsaturated Iron Binding 152 03/19/20 22:28: POC Whole Blood Glucose [Pending] 03/20/20 04:43: POC Whole Blood Glucose 99 Current Medications Medications (Trade) Dose Ordered Sig/Magda Route PRN Reason Start Time Stop Time Status Last Admin Dose Admin Acetaminophen (Tylenol) 650 mg DAILY PRN ORAL pain mgt 03/15/20 16:00 04/14/20 15:59 03/15/20 20:15 Amlodipine Besylate (Norvasc) 5 mg DAILY GT 03/20/20 09:00 04/19/20 08:59 Ascorbic Acid (Vitamin C) 500 mg DAILY GT 03/16/20 09:00 04/15/20 08:59 03/19/20 09:54 Bisacodyl (Dulcolax) 10 mg DAILY PRN RECTAL Constipation 03/15/20 16:00 06/13/20 15:59 Calcium Carbonate (Calcium Carbonate) 650 mg DAILY GT 03/16/20 09:00 06/14/20 08:59 03/19/20 09:53 Chlorhexidine Gluconate (Ingris-Hex 2%) 1 applic DAILY@1999 TOPIC 03/16/20 20:00 06/14/20 19:59 03/19/20 20:13 Clonidine HCl (Catapres Tab) 0.1 mg Q6H PRN GT HTN SBP > 160 03/15/20 16:00 06/13/20 15:59 Dextrose (Dextrose 50%) 25 ml Q30M PRN IV Hypoglycemia 03/15/20 16:00 06/13/20 15:59 Dextrose (Dextrose 50%) 50 ml Q30M PRN IV Hypoglycemia 03/15/20 16:00 06/13/20 15:59 03/18/20 05:04 Docusate Sodium (Colace) 100 mg TWICE A DAY GT 03/16/20 09:00 04/15/20 08:59 03/19/20 17:14 Doxazosin Mesylate (Cardura) 2 mg BEDTIME GT 03/15/20 21:00 04/14/20 20:59 03/19/20 20:14 Epoetin Anson (Epoetin Anson-EPBX(NON ESRD)) 5,000 unit MON-MON-MON SUBQ 03/20/20 21:00 06/18/20 20:59 Finasteride (Proscar) 5 mg DAILY ORAL 03/16/20 09:00 06/14/20 08:59 03/19/20 09:57 Heparin Sodium (Porcine) (Heparin 5000 units/ml) 5,000 units EVERY 12 HOURS SUBQ 03/15/20 21:00 04/29/20 20:59 03/19/20 20:15 Hydralazine HCl (Apresoline) 50 mg EVERY 8 HOURS GT 03/15/20 22:00 06/13/20 21:59 03/20/20 05:04 Insulin Aspart (NovoLOG) EVERY 6 HOURS SUBQ 03/18/20 00:00 06/13/20 16:29 03/19/20 11:53 Insulin Detemir (Levemir) 20 units BID SUBQ 03/18/20 09:00 06/16/20 08:59 03/19/20 17:20 Magnesium Hydroxide (Mom) 30 ml BEDTIME PRN GT Constipation 03/15/20 16:00 04/14/20 15:59 Metoprolol Tartrate (Lopressor) 25 mg EVERY 12 HOURS GT 03/15/20 21:00 06/13/20 20:59 03/19/20 20:16 Piperacillin Sod/ Tazobactam Sod 3.375 gm/Sodium Chloride 110 ml @ 27.5 mls/hr EVERY 8 HOURS IVPB 03/15/20 22:00 03/24/20 23:59 03/20/20 05:02 Saccharomyces Boulardii (Florastor) 250 mg TWICE A DAY GT 03/15/20 18:00 06/13/20 17:59 03/19/20 17:15 Sodium Phosphate (Fleet's Sodium Phosl Enema) 133 ml DAILYPRN PRN RECTAL Constipation 03/15/20 16:00 04/14/20 15:59 Tamsulosin HCl (Flomax) 0.4 mg BEDTIME ORAL 03/15/20 21:00 04/14/20 20:59 03/19/20 20:14 Zinc Oxide (Zinc Oxide) 1 applic THREE TIMES A DAY TOPIC 03/15/20 18:00 06/13/20 17:59 03/19/20 17:21 Assessment/Plan Assessment/Plan IMPRESSION respiratory failure chronic osteomyelitis leukocytosis anemia trach GT chronic encephalopathy PLAN IV antibiotics reviewed reviewed cultures care noted and discussed respiratory care as is may try off vent as prior- was on trach collar monitor oxygen needs and ataper wound care as is and position change feeds and monitor residuals off load and wound care monitor HH transfuse PRN monitor wbc and proceed with dc if cleared by ID - near baseline impression, plan, and exam edited and reviewed in detail care discussed with Silver Correa MD Mar 20, 2020 08:17
[2020-03-20] MEDS: Ascorbic Acid 500mg tab GT SCH (09:15)
[2020-03-20] MEDS: Calcium Carbonate 650mg Tab GT SCH (09:16)
[2020-03-20] MEDS: Docusate 100mg/10ml Liq GT SCH ×2 (09:16→18:00)
[2020-03-20] MEDS: Zinc Oxide Oint 2oz TOPIC SCH ×3 (09:19→18:00)
[2020-03-20] MEDS: Heparin 5000 units/ml inj SUBQ SCH ×2 (09:22→20:17)
[2020-03-20] MEDS: Levemir Flexpen SUBQ SCH ×2 (09:26→18:46)
--- NOTE | 2020-03-20 11:27 | Infectious Diseases Prog Note ---
"Assessment/Plan Assessment/Plan antibiotics : zosyn A 1. streptococcus | fungal UTI s/p rx 2. proteus | pseudomonas pneumonia 3. respiratory failure 4. diabetes mellitus 5. hypertension 6. COPD 7. leucocytosis improving P 1. continue zosyn 4 more days 2. start inhaled gentamicin 3. will follow up cultures Subjective ROS Limited/Unobtainable: Yes Allergies: Coded Allergies: No Known Allergies (Unverified , 02/11/13) Objective Last 24 Hour Vital Signs Date Time Temp Pulse Resp B/P (MAP) Pulse Ox O2 Delivery O2 Flow Rate FiO2 03/20/20 09:16 76 127/68 03/20/20 09:16 76 127/68 03/20/20 08:00 97.9 76 17 127/68 (87) 100 03/20/20 08:00 Mechanical Ventilator 03/20/20 08:00 68 03/20/20 08:00 40 03/20/20 07:50 68 20 40 03/20/20 05:04 131/77 03/20/20 04:00 40 03/20/20 04:00 Mechanical Ventilator 03/20/20 04:00 97.8 77 16 131/77 (95) 100 03/20/20 03:34 68 03/20/20 03:18 58 16 40 03/20/20 00:00 97.9 73 16 123/72 (89) 100 03/20/20 00:00 40 03/20/20 00:00 Mechanical Ventilator 03/19/20 23:30 78 03/19/20 23:13 73 16 40 03/19/20 21:18 110/58 03/19/20 20:16 90 123/82 03/19/20 20:00 40 03/19/20 20:00 98.1 82 16 123/60 (81) 97 03/19/20 20:00 Mechanical Ventilator 03/19/20 19:03 81 03/19/20 18:48 80 17 40 03/19/20 17:19 73 127/80 03/19/20 16:00 98.4 76 18 103/54 (70) 100 03/19/20 16:00 40 03/19/20 16:00 Mechanical Ventilator 03/19/20 16:00 76 03/19/20 14:40 82 16 40 03/19/20 14:05 126/74 03/19/20 12:00 Mechanical Ventilator 03/19/20 12:00 98.4 74 18 116/72 (87) 100 03/19/20 12:00 66 03/19/20 12:00 40 Height (Feet): 5 Height (Inches): 10.00 Weight (Pounds): 207 HEENT: status post trach Respiratory/Chest: lungs clear Cardiovascular: normal rate, regular rhythm, no gallop/murmur Abdomen: soft, non tender, other - GT Extremities: no edema Laboratory Tests Test 03/19/20 11:42 03/19/20 16:49 03/19/20 18:23 03/19/20 22:28 POC Whole Blood Glucose 150 MG/DL (74-106) H 109 MG/DL (74-106) H Pending Iron Level 28 ug/dL (50-175) L Total Iron Binding Capacity 180 ug/dL (250-450) L Percent Iron Saturation 16 % (15-50) Unsaturated Iron Binding 152 ug/dL (112-346) Test 03/20/20 04:43 03/20/20 09:22 POC Whole Blood Glucose 99 MG/DL (74-106) Pending Current Medications Medications (Trade) Dose Ordered Sig/Magda Route PRN Reason Start Time Stop Time Status Last Admin Dose Admin Acetaminophen (Tylenol) 650 mg DAILY PRN ORAL pain mgt 03/15/20 16:00 04/14/20 15:59 03/15/20 20:15 Amlodipine Besylate (Norvasc) 5 mg DAILY GT 03/20/20 09:00 04/19/20 08:59 03/20/20 09:16 Ascorbic Acid (Vitamin C) 500 mg DAILY GT 03/16/20 09:00 04/15/20 08:59 03/20/20 09:15 Bisacodyl (Dulcolax) 10 mg DAILY PRN RECTAL Constipation 03/15/20 16:00 06/13/20 15:59 Calcium Carbonate (Calcium Carbonate) 650 mg DAILY GT 03/16/20 09:00 06/14/20 08:59 03/20/20 09:16 Chlorhexidine Gluconate (Ingris-Hex 2%) 1 applic DAILY@2000 TOPIC 03/16/20 20:00 06/14/20 19:59 03/19/20 20:13 Clonidine HCl (Catapres Tab) 0.1 mg Q6H PRN GT HTN SBP > 160 03/15/20 16:00 06/13/20 15:59 Dextrose (Dextrose 50%) 25 ml Q30M PRN IV Hypoglycemia 03/15/20 16:00 06/13/20 15:59 Dextrose (Dextrose 50%) 50 ml Q30M PRN IV Hypoglycemia 03/15/20 16:00 06/13/20 15:59 03/18/20 05:04 Docusate Sodium (Colace) 100 mg TWICE A DAY GT 03/16/20 09:00 04/15/20 08:59 03/20/20 09:16 Doxazosin Mesylate (Cardura) 2 mg BEDTIME GT 03/15/20 21:00 04/14/20 20:59 03/19/20 20:14 Epoetin Anson (Epoetin Anson-EPBX(NON ESRD)) 5,000 unit MON-MON-MON SUBQ 03/20/20 21:00 06/18/20 20:59 Finasteride (Proscar) 5 mg DAILY ORAL 03/16/20 09:00 06/14/20 08:59 03/20/20 09:15 Heparin Sodium (Porcine) (Heparin 5000 units/ml) 5,000 units EVERY 12 HOURS SUBQ 03/15/20 21:00 04/29/20 20:59 03/20/20 09:22 Hydralazine HCl (Apresoline) 50 mg EVERY 8 HOURS GT 03/15/20 22:00 06/13/20 21:59 03/20/20 05:04 Insulin Aspart (NovoLOG) EVERY 6 HOURS SUBQ 03/18/20 00:00 06/13/20 16:29 03/19/20 11:53 Insulin Detemir (Levemir) 20 units BID SUBQ 03/18/20 09:00 06/16/20 08:59 03/20/20 09:26 Magnesium Hydroxide (Mom) 30 ml BEDTIME PRN GT Constipation 03/15/20 16:00 04/14/20 15:59 Metoprolol Tartrate (Lopressor) 25 mg EVERY 12 HOURS GT 03/15/20 21:00 06/13/20 20:59 03/20/20 09:16 Piperacillin Sod/ Tazobactam Sod 3.375 gm/Sodium Chloride 110 ml @ 27.5 mls/hr EVERY 8 HOURS IVPB 03/15/20 22:00 03/24/20 23:59 03/20/20 05:02 Saccharomyces Boulardii (Florastor) 250 mg TWICE A DAY GT 03/15/20 18:00 06/13/20 17:59 03/20/20 09:15 Sodium Phosphate (Fleet's Sodium Phosl Enema) 133 ml DAILYPRN PRN RECTAL Constipation 03/15/20 16:00 04/14/20 15:59 Tamsulosin HCl (Flomax) 0.4 mg BEDTIME ORAL 03/15/20 21:00 04/14/20 20:59 03/19/20 20:14 Zinc Oxide (Zinc Oxide) 1 applic THREE TIMES A DAY TOPIC 03/15/20 18:00 06/13/20 17:59 03/20/20 09:19 Jesica Alegria MD Mar 20, 2020 11:27"
[2020-03-20 12:00] VITALS: BP 111/67
--- NOTE | 2020-03-20 15:29 | Surgery Progress Note ---
Surgery Progress Note Subjective Additional Comments ill appearing labs noted no acute events Objective Last 24 Hour Vital Signs Date Time Temp Pulse Resp B/P (MAP) Pulse Ox O2 Delivery O2 Flow Rate FiO2 03/20/20 13:38 111/67 03/20/20 12:00 40 03/20/20 12:00 62 03/20/20 12:00 97.3 76 20 111/67 (82) 100 03/20/20 12:00 Mechanical Ventilator 03/20/20 11:10 57 16 40 03/20/20 09:16 76 127/68 03/20/20 09:16 76 127/68 03/20/20 08:00 97.9 76 17 127/68 (87) 100 03/20/20 08:00 Mechanical Ventilator 03/20/20 08:00 68 03/20/20 08:00 40 03/20/20 07:50 68 20 40 03/20/20 05:04 131/77 03/20/20 04:00 40 03/20/20 04:00 Mechanical Ventilator 03/20/20 04:00 97.8 77 16 131/77 (95) 100 03/20/20 03:34 68 03/20/20 03:18 58 16 40 03/20/20 00:00 97.9 73 16 123/72 (89) 100 03/20/20 00:00 40 03/20/20 00:00 Mechanical Ventilator 03/19/20 23:30 78 03/19/20 23:13 73 16 40 03/19/20 21:18 110/58 03/19/20 20:16 90 123/82 03/19/20 20:00 40 03/19/20 20:00 98.1 82 16 123/60 (81) 97 03/19/20 20:00 Mechanical Ventilator 03/19/20 19:03 81 03/19/20 18:48 80 17 40 03/19/20 17:19 73 127/80 03/19/20 16:00 98.4 76 18 103/54 (70) 100 03/19/20 16:00 40 03/19/20 16:00 Mechanical Ventilator 03/19/20 16:00 76 I&O Intake and Output 03/19/20 03/20/20 19:00 07:00 Intake Total 1162.5 ml 895.0 ml Output Total 1000 ml 1400 ml Balance 162.5 ml -505.0 ml Free Water 290 ml 300 ml IV Total 392.5 ml 110.0 ml Tube Feeding 480 ml 485 ml Output Urine Total 1000 ml 1400 ml # Bowel Movements 1 Dressing: other Wound: other Cardiovascular: RSR Respiratory: decreased breath sounds Abdomen: soft, non-tender, present bowel sounds Extremities: no tenderness, no cyanosis Laboratory Tests Test 03/19/20 16:49 03/19/20 18:23 03/19/20 22:28 03/20/20 04:43 POC Whole Blood Glucose 109 MG/DL (74-106) H Pending 99 MG/DL (74-106) Iron Level 28 ug/dL (50-175) L Total Iron Binding Capacity 180 ug/dL (250-450) L Percent Iron Saturation 16 % (15-50) Unsaturated Iron Binding 152 ug/dL (112-346) Test 03/20/20 09:22 03/20/20 13:32 POC Whole Blood Glucose Pending 119 MG/DL (74-106) H Plan Problems: (1) Anemia (2) Decubital ulcer Assessment & Plan: Patient presented admission with a stage IV sacral decubitus ulcer and deep tissue injury wound with maceration of skin as well as into the buttock. Wound evaluated bedside with care team. Care plan and dressings applied. Thera honey initiated. Will follow with recommendations and care plan. Pt presented on admission with Tracheostomy,Erosion at GT site, Multiple Pressure injuries. Skin assessed around collar of trach and no areas of skin breakdown noted. Insertion site and Peristomal GT erythematous and macerated. Silver Nitrate x1 application applied. Full Thickness Pressure Injury with tunneling R Buttocks (L)5.8cm x (W)3.4cm x (D)2.7cm,Tunneling clockwise 11-12 by 3.9cm @12 o'clock. Beefy granulation at base of wound.Bone is palpable at base of wound. Edges are flat and adherent to base of wound. Butler epithelial with scattered areas of hyperpigmentation periwound. Small amt sanguineous exudate noted. No odor noted. Partial thickness wounds in L shape formation noted R buttocks in close proximity to above wound. Marginal erythema along borders. (L)9.2cm x (W)5.5cm. Small amt serosanguineous exudate noted. Partially opened DTPI Sacrum (L)6.2cm x (W)3.3cm. Base of wound is purpuric and fluctuant with macerated borders including periwound. Scrotum is erythematous. Non-Blanchable erythema without fluctuance or induration R and L heels. Tx.Plan: Cleanse Sacral wound with Saline. Apply TheraHoney. Apply Moisture Barrier Paste periwound. Cover with Optifoam Drsg Daily and prn. Cleanse wound R Buttocks with Saline. Loosely pack with Therahoney impregnated Kerlix. Apply Moisture Barrier Paste periwound. Cover with Optifoam drsg. Change Daily and Prn. Apply Moisture Barrier paste to wound Outer R Buttocks. Cover with Optifoam drsg. Change every 3 days and prn. Apply Moisture Barrier Paste to Scrotum and groin area with each Incontinence care. Cleanse GT site with soap and water. Pat dry. Apply Zinc Oxide Paste to GT Site BID. Apply Cavilon Skin Barrier to both heels and Malleoli. Cover each site with Optifoam drsgs. Change every 7 days and prn. Reposition at least every 2hours or as tolerated. Off-load heels with pillow. APM/DALTON Mattress overlay. (3) Leukocytosis Assessment & Plan: There appears to be a large open wound in the inferomedial right buttock adjacent to the right ischium. There are a few gas bubbles within the soft tissues subjacent to this. No discrete fluid collection demonstrated. There is some infiltration of the tissues lateral to the ischium. There is evidence of cortical erosion and bone loss of posterior and inferior ischium, consistent with osteomyelitis. on abx picc cont tx micro reviewed plan repeat CT - as below improved Again demonstrated is a wound in the right ischial region. This appears to contain some packing material. This appears to penetrate much less deeply than on the prior study, as no deep gas bubbles are evident. Density in the area appears to be scar tissue rather than fluid. Again demonstrated is erosion of the adjacent ischium, extent of which appears to be unchanged. Again demonstrated is extensive heterotopic ossification and degenerative change about the left hip. Again demonstrated is a left inguinal hernia that contains only fat. Again demonstrated is broad-based diastasis of the rectus abdominis tendon above the umbilicus, bordering on herniation. There is also a tiny fat-containing umbilical hernia. There is evidence of prior surgery in the region. There is no evidence of obstruction. There is distention of the rectum by feces. This appears less severe than on the prior study. Again demonstrated is extensive colonic diverticulosis. No evidence of diverticulitis. What appears to be a short normal appendix is evident. No small bowel distention. No free or loculated intraperitoneal gas or fluid is evident. No small bowel wall thickening. There is a gastrostomy in place which appears well- positioned. There is evidence of prior gastric surgery. The distal esophagus and duodenum are unremarkable. The gallbladder contains gallstones. Lack of IV contrast limits assessment of the solid organs. The liver is grossly unremarkable. The pancreas is atrophic and nearly completely fatty replaced. The spleen is not demonstrated, although there is evidence of some scattered splenic tissue in the left upper quadrant. The adrenals are unremarkable. Right renal staghorn calculi and other calyceal calculi are again demonstrated. Left renal parapelvic cyst or cysts are again demonstrated. A small peripheral calyceal calculus is also demonstrated in the left kidney. No retroperitoneal or mesenteric mass or adenopathy. The bladder is empty, contains a Peters catheter. Calculi are again demonstrated within the bladder. The prostate is enlarged. The lung bases demonstrate considerable consolidation involving the right lower lobe. There is also a component of volume loss. There is some posterior dependent atelectasis of the left lung as well. The bones demonstrate degenerative spondylosis changes, appearing similar to the previous study. There is a stable mild compression fracture deformity of the L3 vertebral body. Impression: Right ischial region wound, consistent with known clinical history of decubitus changes in this area. This appears to demonstrate some interim healing since previous study. Stable erosive changes of the adjacent ischium. No definite evidence of abscess, although evaluation for such is limited given the absence of IV contrast administration. Evidence of rectal fecal impaction, less severe than on the previous study. Diverticulosis, also previously reported Cholelithiasis, also previously reported Unchanged right renal staghorn and other calculi, small left renal calculus Right lower lobe consolidation and volume loss. Less extensive atelectasis of the posterior left lung Broad-based diastasis of the rectus abdominis tendon bordering on herniation, nonobstructive, also previously reported Absent spleen. There is evidence of some scattered splenic tissue in the left upper quadrant, also previously reported Other findings as noted, including gastrostomy, evidence of prior gastric surgery, atrophic fatty replaced pancreas, left renal parapelvic cyst or cysts, Peters catheter, enlarged prostate, bladder calculi, degenerative spondylosis, stable L3 vertebral body mild compression fracture deformity (4) UTI (urinary tract infection) (5) Pneumonia (6) Septic shock (7) Urinary retention (8) Hematuria (9) Hematuria (10) Failure to thrive (11) Fecal impaction (12) Hypernatremia (13) Bowel obstruction (14) Bowel obstruction (15) Leukocytosis (16) Respiratory failure (17) Sepsis (18) Sepsis (19) Respiratory failure, chronic (20) SBO (small bowel obstruction) (21) Hypertension (22) Pneumonia (23) [address] (24) Pneumonia (25) Pneumonia (26) Encephalopathy acute (27) Encephalopathy chronic (28) Abnormal laboratory test result (29) Diabetes mellitus out of control (30) BPH (benign prostatic hyperplasia) (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
[2020-03-20 16:00] VITALS: BP 117/62
--- NOTE | 2020-03-20 16:41 | General Progress Note ---
Subjective Allergies: Coded Allergies: No Known Allergies (Unverified , 02/11/13) Subjective no events. no fevers or chills. no sob. poorly responsive. on the vent. on iv abx. wbc improving. no congestion. no bleeding. Objective Last 24 Hour Vital Signs Date Time Temp Pulse Resp B/P (MAP) Pulse Ox O2 Delivery O2 Flow Rate FiO2 03/20/20 16:00 98.2 72 18 117/62 (80) 100 03/20/20 16:00 40 03/20/20 16:00 Mechanical Ventilator 03/20/20 15:15 79 22 40 03/20/20 13:38 111/67 03/20/20 12:00 40 03/20/20 12:00 62 03/20/20 12:00 97.3 76 20 111/67 (82) 100 03/20/20 12:00 Mechanical Ventilator 03/20/20 11:10 57 16 40 03/20/20 09:16 76 127/68 03/20/20 09:16 76 127/68 03/20/20 08:00 97.9 76 17 127/68 (87) 100 03/20/20 08:00 Mechanical Ventilator 03/20/20 08:00 68 03/20/20 08:00 40 03/20/20 07:50 68 20 40 03/20/20 05:04 131/77 03/20/20 04:00 40 03/20/20 04:00 Mechanical Ventilator 03/20/20 04:00 97.8 77 16 131/77 (95) 100 03/20/20 03:34 68 03/20/20 03:18 58 16 40 03/20/20 00:00 97.9 73 16 123/72 (89) 100 03/20/20 00:00 40 03/20/20 00:00 Mechanical Ventilator 03/19/20 23:30 78 03/19/20 23:13 73 16 40 03/19/20 21:18 110/58 03/19/20 20:16 90 123/82 03/19/20 20:00 40 03/19/20 20:00 98.1 82 16 123/60 (81) 97 03/19/20 20:00 Mechanical Ventilator 03/19/20 19:03 81 03/19/20 18:48 80 17 40 9/24/20 17:19 73 127/80 Intake and Output 03/19/20 03/20/20 19:00 07:00 Intake Total 1162.5 ml 895.0 ml Output Total 1000 ml 1400 ml Balance 162.5 ml -505.0 ml Free Water 290 ml 300 ml IV Total 392.5 ml 110.0 ml Tube Feeding 480 ml 485 ml Output Urine Total 1000 ml 1400 ml # Bowel Movements 1 Laboratory Tests 03/19/20 16:49: POC Whole Blood Glucose 109H 03/19/20 18:23: Iron Level 28L, Total Iron Binding Capacity 180L, Percent Iron Saturation 16, Unsaturated Iron Binding 152 03/19/20 22:28: POC Whole Blood Glucose [Pending] 03/20/20 04:43: POC Whole Blood Glucose 99 03/20/20 09:22: POC Whole Blood Glucose [Pending] 03/20/20 13:32: POC Whole Blood Glucose 119H Height (Feet): 5 Height (Inches): 10.00 Weight (Pounds): 207 Objective General Appearance: WD/WN, lethargic, confused EENT: PERRL/EOMI, normal ENT inspection Neck: normal alignment Cardiovascular: normal rate, regular rhythm Respiratory/Chest: chest wall non-tender, lungs clear, normal breath sounds, no respiratory distress Abdomen: normal bowel sounds, non tender, soft, no organomegaly Edema: no edema noted Arm (L), no edema noted Arm (R) Neurologic: disoriented, unresponsive, aphasia Lymphatic: normal anterior cervical (L), normal anterior cervical (R) Assessment/Plan Problem List: (1) Anemia ICD Codes: D64.9 - Anemia, unspecified SNOMED: 132448434 (2) Decubital ulcer ICD Codes: L89.90 - Pressure ulcer of unspecified site, unspecified stage SNOMED: 772536511 (3) Leukocytosis ICD Codes: D72.829 - Elevated white blood cell count, unspecified SNOMED: 748841700 (4) UTI (urinary tract infection) ICD Codes: N39.0 - Urinary tract infection, site not specified SNOMED: 83547322 (5) Pneumonia ICD Codes: J18.9 - Pneumonia, unspecified organism SNOMED: 026607371 (6) Urinary retention ICD Codes: R33.9 - Retention of urine, unspecified SNOMED: 498074938 (7) Pneumonia ICD Codes: J18.9 - Pneumonia, unspecified organism SNOMED: 536534234 (8) Encephalopathy chronic ICD Codes: G93.49 - Encephalopathy chronic SNOMED: 96516336 (9) Diabetes mellitus out of control ICD Codes: E11.9 - Diabetes mellitus out of control SNOMED: 468209033 (10) BPH (benign prostatic hyperplasia) ICD Codes: N40.0 - Benign prostatic hyperplasia without lower urinary tract symptoms SNOMED: 734671672 (11) Stage 4 skin ulcer of sacral region ICD Codes: L98.429 - Non-pressure chronic ulcer of back with unspecified severity SNOMED: 85366746, 931691417 (12) Septicemia (13) Urosepsis Status: stable Assessment/Plan: cont iv abx follow up cultures vent support wean as able suctioning resp rx wound care gt feeds monitor labs insulin coverage epo and iron monitor labs turn q2 Jereimah Perkins MD Mar 20, 2020 16:41
[2020-03-20 18:26] LABS: EOSINOPHILS % (AUTO) 5.1 % (0.0-3.0); HEMATOCRIT 29.9 % (42.0-52.0); HEMOGLOBIN 9.2 G/DL (14.2-18.0); LYMPHOCYTES % (AUTO) 17.3 % (20.0-45.0); MEAN CORPUSCULAR VOLUME 86 FL (80-99); MONOCYTES % (AUTO) 10.4 % (1.0-10.0); NEUTROPHILS % (AUTO) 65.2 % (45.0-75.0); PLATELET COUNT 468 K/UL (150-450); RED BLOOD COUNT 3.47 M/UL (4.70-6.10); RED CELL DISTRIBUTION WIDTH 17.9 % (11.6-14.8)
[2020-03-20 18:37] LABS: ALANINE AMINOTRANSFERASE 34 U/L (12-78); ALBUMIN 2.4 G/DL (3.4-5.0); ALBUMIN/GLOBULIN RATIO 0.5 (1.0-2.7); ALKALINE PHOSPHATASE 92 U/L (46-116); ANION GAP 6 mmol/L (5-15); ASPARTATE AMINO TRANSFERASE 20 U/L (15-37); BILIRUBIN,TOTAL 0.3 MG/DL (0.2-1.0); BLOOD UREA NITROGEN 18 mg/dL (7-18); CALCIUM 9.8 MG/DL (8.5-10.1); CARBON DIOXIDE 29 MMOL/L (21-32); CHLORIDE 109 MMOL/L (98-107); CREATININE 0.9 MG/DL (0.55-1.30); POTASSIUM 4.1 MMOL/L (3.5-5.1); SODIUM 144 MMOL/L (136-145)
[2020-03-20 20:00] VITALS: BP 134/73
[2020-03-20] MEDS: Dyna-Hex 2% Top Sol 2oz TOPIC SCH (20:16)
[2020-03-20] MEDS: Doxazosin 1mg Tab GT SCH (20:17)
[2020-03-20] MEDS: Tamsulosin 0.4mg cap ORAL SCH (20:17)
[2020-03-20] MEDS ORDERED: Epoetin Alfa-EPBX (NON ESRD)10,000 unit/ml vial SUBQ SCH (21:00)
[2020-03-20] MEDS: Epoetin Alfa-EPBX (NON ESRD) 3000 units/ml vial SUBQ SCH (21:01)
[2020-03-20] MEDS: Epoetin Alfa-EPBX (NON ESRD) 2000 units/ml vial SUBQ SCH (21:01)
[2020-03-20] MEDS: Gentamicin for inhalation INH SCH (22:00)
--- NOTE | 2020-03-20 23:45 | General Progress Note ---
Subjective Allergies: Coded Allergies: No Known Allergies (Unverified , 02/11/13) Subjective calm unresponsive on TF Less GT site Objective Last 24 Hour Vital Signs Date Time Temp Pulse Resp B/P (MAP) Pulse Ox O2 Delivery O2 Flow Rate FiO2 03/20/20 23:12 69 16 100 Mechanical Ventilator 40 72 16 40 03/20/20 21:18 119/69 03/20/20 20:17 71 134/73 03/20/20 20:00 40 03/20/20 20:00 Mechanical Ventilator 03/20/20 20:00 98.1 71 18 134/73 (93) 100 03/20/20 19:32 67 03/20/20 19:04 70 16 40 03/20/20 16:00 98.2 72 18 117/62 (80) 100 03/20/20 16:00 58 03/20/20 16:00 40 03/20/20 16:00 Mechanical Ventilator 03/20/20 15:15 79 22 40 03/20/20 13:38 111/67 03/20/20 12:00 40 03/20/20 12:00 62 03/20/20 12:00 97.3 76 20 111/67 (82) 100 03/20/20 12:00 Mechanical Ventilator 03/20/20 11:10 57 16 40 03/20/20 09:16 76 127/68 03/20/20 09:16 76 127/68 03/20/20 08:00 97.9 76 17 127/68 (87) 100 03/20/20 08:00 Mechanical Ventilator 03/20/20 08:00 68 03/20/20 08:00 40 03/20/20 07:50 68 20 40 03/20/20 05:04 131/77 03/20/20 04:00 40 03/20/20 04:00 Mechanical Ventilator 03/20/20 04:00 97.8 77 16 131/77 (95) 100 03/20/20 03:34 68 03/20/20 03:18 58 16 40 03/20/20 00:00 97.9 73 16 123/72 (89) 100 03/20/20 00:00 40 03/20/20 00:00 Mechanical Ventilator Intake and Output 03/19/20 03/20/20 19:00 07:00 Intake Total 1162.5 ml 895.0 ml Output Total 1000 ml 1400 ml Balance 162.5 ml -505.0 ml Free Water 290 ml 300 ml IV Total 392.5 ml 110.0 ml Tube Feeding 480 ml 485 ml Output Urine Total 1000 ml 1400 ml # Bowel Movements 1 Laboratory Tests 03/20/20 04:43: POC Whole Blood Glucose 99 03/20/20 09:22: POC Whole Blood Glucose [Pending] 03/20/20 13:32: POC Whole Blood Glucose 119H 03/20/20 17:17: POC Whole Blood Glucose 102 03/20/20 17:45: White Blood Count 13.0H, Red Blood Count 3.47L, Hemoglobin 9.2L, Hematocrit 29.9L, Mean Corpuscular Volume 86, Mean Corpuscular Hemoglobin 26.5L, Mean Corpuscular Hemoglobin Concent 30.8L, Red Cell Distribution Width 17.9H, Platelet Count 468H, Mean Platelet Volume 9.2, Neutrophils (%) (Auto) 65.2, Lymphocytes (%) (Auto) 17.3L, Monocytes (%) (Auto) 10.4H, Eosinophils (%) (Auto) 5.1H, Basophils (%) (Auto) 2.0, Sodium Level 144, Potassium Level 4.1, Chloride Level 109H, Carbon Dioxide Level 29, Anion Gap 6, Blood Urea Nitrogen 18, Creatinine 0.9, Estimat Glomerular Filtration Rate > 60, Glucose Level 113H, Calcium Level 9.8, Total Bilirubin 0.3, Aspartate Amino Transf (AST/SGOT) 20, Alanine Aminotransferase (ALT/SGPT) 34, Alkaline Phosphatase 92, Total Protein 6.8, Albumin 2.4L, Globulin 4.4, Albumin/Globulin Ratio 0.5L 03/20/20 22:50: POC Whole Blood Glucose [Pending] Height (Feet): 5 Height (Inches): 10.00 Weight (Pounds): 207 Objective Elderly man NCAT supple CTA RR abd distended, (+) abd wall hernia (+) GT with some GT site acid dermatitis, improved no edema Assessment/Plan Status: stable Assessment/Plan: Assessment - Anoxic encephalopathy - dysphagia / s/p GT - GT site acid dermatitis - Resp failure, s/p trach - CVA - HTN - DM - Leukocytosis, sepsis - Osteo - Poor px Recommendations - s/p GT change - GT feeds - Monitor GT for leaking - GT dressing changed to TID - GT site care - Elevate HOB - Abx Rose Carranza MD Mar 20, 2020 23:45
[2020-03-21] VITALS: BP 119/64
--- NOTE | 2020-03-21 01:55 | Cardiology Progress Note ---
Subjective DATE OF SERVICE: Mar 20, 2020 On vent support via trach BP trend stabilized Urine culture + yeast Monitor: sinus WBC count down to 13K Objective Last 24 Hour Vital Signs Date Time Temp Pulse Resp B/P (MAP) Pulse Ox O2 Delivery O2 Flow Rate FiO2 03/21/20 00:00 98.2 68 16 119/64 (82) 100 03/21/20 00:00 40 03/21/20 00:00 Mechanical Ventilator 03/20/20 23:38 67 03/20/20 23:12 69 16 100 Mechanical Ventilator 40 72 16 40 03/20/20 21:18 119/69 03/20/20 20:17 71 134/73 03/20/20 20:00 40 03/20/20 20:00 Mechanical Ventilator 03/20/20 20:00 98.1 71 18 134/73 (93) 100 03/20/20 19:32 67 03/20/20 19:04 70 16 40 03/20/20 16:00 98.2 72 18 117/62 (80) 100 03/20/20 16:00 58 03/20/20 16:00 40 03/20/20 16:00 Mechanical Ventilator 03/20/20 15:15 79 22 40 03/20/20 13:38 111/67 03/20/20 12:00 40 03/20/20 12:00 62 03/20/20 12:00 97.3 76 20 111/67 (82) 100 03/20/20 12:00 Mechanical Ventilator 03/20/20 11:10 57 16 40 03/20/20 09:16 76 127/68 03/20/20 09:16 76 127/68 03/20/20 08:00 97.9 76 17 127/68 (87) 100 03/20/20 08:00 Mechanical Ventilator 03/20/20 08:00 68 03/20/20 08:00 40 03/20/20 07:50 68 20 40 03/20/20 05:04 131/77 03/20/20 04:00 40 03/20/20 04:00 Mechanical Ventilator 03/20/20 04:00 97.8 77 16 131/77 (95) 100 03/20/20 03:34 68 03/20/20 03:18 58 16 40 ROS: no change from my dictation of 03/15/20 HEENT: Mechanically Ventilated, Thick Trach secretions RHYTHM: NSR LUNGS: bilateral rhonchi CARDIAC: regular rhythm, normal S1 and S2, rapid rate, tachycardia ABDOMEN: non tender, soft, no organomegaly, G-Tube intact EXTREMITIES: non-tender, No edema, other - sacral decub; Neuro unresponsive Laboratory Tests Test 03/20/20 04:43 03/20/20 09:22 03/20/20 13:32 03/20/20 17:17 POC Whole Blood Glucose 99 MG/DL (74-106) Pending 119 MG/DL (74-106) H 102 MG/DL (74-106) Test 03/20/20 17:45 03/20/20 22:50 White Blood Count 13.0 K/UL (4.8-10.8) H Red Blood Count 3.47 M/UL (4.70-6.10) L Hemoglobin 9.2 G/DL (14.2-18.0) L Hematocrit 29.9 % (42.0-52.0) L Mean Corpuscular Volume 86 FL (80-99) Mean Corpuscular Hemoglobin 26.5 PG (27.0-31.0) L Mean Corpuscular Hemoglobin Concent 30.8 G/DL (32.0-36.0) L Red Cell Distribution Width 17.9 % (11.6-14.8) H Platelet Count 468 K/UL (150-450) H Mean Platelet Volume 9.2 FL (6.5-10.1) Neutrophils (%) (Auto) 65.2 % (45.0-75.0) Lymphocytes (%) (Auto) 17.3 % (20.0-45.0) L Monocytes (%) (Auto) 10.4 % (1.0-10.0) H Eosinophils (%) (Auto) 5.1 % (0.0-3.0) H Basophils (%) (Auto) 2.0 % (0.0-2.0) Sodium Level 144 MMOL/L (136-145) Potassium Level 4.1 MMOL/L (3.5-5.1) Chloride Level 109 MMOL/L (98-107) H Carbon Dioxide Level 29 MMOL/L (21-32) Anion Gap 6 mmol/L (5-15) Blood Urea Nitrogen 18 mg/dL (7-18) Creatinine 0.9 MG/DL (0.55-1.30) Estimat Glomerular Filtration Rate > 60 mL/min (>60) Glucose Level 113 MG/DL (74-106) H Calcium Level 9.8 MG/DL (8.5-10.1) Total Bilirubin 0.3 MG/DL (0.2-1.0) Aspartate Amino Transf (AST/SGOT) 20 U/L (15-37) Alanine Aminotransferase (ALT/SGPT) 34 U/L (12-78) Alkaline Phosphatase 92 U/L (46-116) Total Protein 6.8 G/DL (6.4-8.2) Albumin 2.4 G/DL (3.4-5.0) L Globulin 4.4 g/dL Albumin/Globulin Ratio 0.5 (1.0-2.7) L POC Whole Blood Glucose Pending Assessment/Plan Assessment/Plan Severe sepsis Fungal cystitis Respiratory failure with trach Chronic encephalopathy HC assoc PNA Hypertension/HHC now with lower BP trend Acute/chronic diastolic CHF Anemia Dysphagia with GTube Dehydration/hypernatremia Anti-fungal therapy Vent Resp Rx Trend BNP; adjust fluids accordingly - adjust free water by Gtube DVT prophyl Nutritional support by Gtube BP better stabilized on decreased amlodipine dose Brady Burks MD Mar 21, 2020 01:55
[2020-03-21 03:54] VITALS: BP 150/75
[2020-03-21] MEDS: Piperacillin/Tazobactam 3.375 GM in NS 110 ML IVPB SCH ×3 (05:00→21:41)
[2020-03-21] MEDS: HydrALAZINE 50mg tab GT SCH ×3 (05:04→21:39)
[2020-03-21] MEDS: NovoLOG Insulin Flexpen SUBQ SCH ×4 (05:04→23:43)
[2020-03-21 05:21] LABS: BASOPHILS % (AUTO) 1.1 % (0.0-2.0); EOSINOPHILS % (AUTO) 4.2 % (0.0-3.0); HEMATOCRIT 29.2 % (42.0-52.0); HEMOGLOBIN 9.2 G/DL (14.2-18.0); MEAN CORPUSCULAR VOLUME 83 FL (80-99); MONOCYTES % (AUTO) 8.6 % (1.0-10.0); NEUTROPHILS % (AUTO) 69.1 % (45.0-75.0); PLATELET COUNT 531 K/UL (150-450); RED BLOOD COUNT 3.52 M/UL (4.70-6.10); RED CELL DISTRIBUTION WIDTH 17.1 % (11.6-14.8); WHITE BLOOD COUNT 16.7 K/UL (4.8-10.8)
[2020-03-21 05:51] LABS: ANION GAP 11 mmol/L (5-15); BLOOD UREA NITROGEN 19 mg/dL (7-18); CALCIUM 9.5 MG/DL (8.5-10.1); CARBON DIOXIDE 25 MMOL/L (21-32); CHLORIDE 109 MMOL/L (98-107); CREATININE 0.9 MG/DL (0.55-1.30); POTASSIUM 4.6 MMOL/L (3.5-5.1); SODIUM 145 MMOL/L (136-145)
[2020-03-21 08:00] VITALS: BP 157/77
[2020-03-21] MEDS: Zinc Oxide Oint 2oz TOPIC SCH ×3 (09:02→18:14)
[2020-03-21] MEDS: Docusate 100mg/10ml Liq GT SCH ×2 (09:02→18:10)
[2020-03-21] MEDS: Calcium Carbonate 650mg Tab GT SCH (09:02)
[2020-03-21] MEDS: Ascorbic Acid 500mg tab GT SCH (09:02)
[2020-03-21] MEDS: Heparin 5000 units/ml inj SUBQ SCH ×2 (09:04→20:36)
[2020-03-21] MEDS: Levemir Flexpen SUBQ SCH ×2 (09:05→18:13)
--- NOTE | 2020-03-21 09:59 | General Progress Note ---
Subjective ROS Limited/Unobtainable: Yes Constitutional: Reports: malaise, weakness HEENT: Reports: no symptoms Cardiovascular: Reports: no symptoms Respiratory: Reports: cough, shortness of breath, sputum Gastrointestinal/Abdominal: Reports: difficulty swallowing Genitourinary: Reports: no symptoms Neurologic/Psychiatric: Reports: pre-existing deficit Endocrine: Reports: no symptoms Hematologic/Lymphatic: Reports: anemia Allergies: Coded Allergies: No Known Allergies (Unverified , 02/11/13) All Systems: reviewed and negative except above Subjective no events. stable on the vent. on iv and inhaled abx. no fevers or chills. no bleeding. poorly responsive, no distress. tolerating feeds Objective Last 24 Hour Vital Signs Date Time Temp Pulse Resp B/P (MAP) Pulse Ox O2 Delivery O2 Flow Rate FiO2 03/21/20 09:06 80 157/77 03/21/20 09:05 80 157/77 03/21/20 08:01 80 16 40 03/21/20 08:00 40 03/21/20 08:00 98.2 86 16 157/77 (103) 99 03/21/20 07:54 83 03/21/20 05:04 135/66 03/21/20 04:00 Mechanical Ventilator 03/21/20 04:00 40 03/21/20 03:54 98.4 79 18 150/75 (100) 100 03/21/20 03:51 83 03/21/20 03:12 54 16 40 03/21/20 00:00 98.2 68 16 119/64 (82) 100 03/21/20 00:00 40 03/21/20 00:00 Mechanical Ventilator 03/20/20 23:38 67 03/20/20 23:12 69 16 100 Mechanical Ventilator 40 72 16 40 03/20/20 21:18 119/69 03/20/20 20:17 71 134/73 03/20/20 20:00 40 03/20/20 20:00 Mechanical Ventilator 03/20/20 20:00 98.1 71 18 134/73 (93) 100 03/20/20 19:32 67 03/20/20 19:04 70 16 40 03/20/20 16:00 98.2 72 18 117/62 (80) 100 03/20/20 16:00 58 03/20/20 16:00 40 03/20/20 16:00 Mechanical Ventilator 03/20/20 15:15 79 22 40 03/20/20 13:38 111/67 03/20/20 12:00 40 03/20/20 12:00 62 03/20/20 12:00 97.3 76 20 111/67 (82) 100 03/20/20 12:00 Mechanical Ventilator 03/20/20 11:10 57 16 40 Intake and Output 03/20/20 03/21/20 19:00 07:00 Intake Total 472.5 ml 1005.0 ml Output Total 1100 ml Balance 472.5 ml -95.0 ml Free Water 300 ml IV Total 27.5 ml 165.0 ml Tube Feeding 445 ml 540 ml Output Urine Total 1100 ml Laboratory Tests 03/20/20 13:32: POC Whole Blood Glucose 119H 03/20/20 17:17: POC Whole Blood Glucose 102 03/20/20 17:45: White Blood Count 13.0H, Red Blood Count 3.47L, Hemoglobin 9.2L, Hematocrit 29.9L, Mean Corpuscular Volume 86, Mean Corpuscular Hemoglobin 26.5L, Mean Corpuscular Hemoglobin Concent 30.8L, Red Cell Distribution Width 17.9H, Platelet Count 468H, Mean Platelet Volume 9.2, Neutrophils (%) (Auto) 65.2, Lymphocytes (%) (Auto) 17.3L, Monocytes (%) (Auto) 10.4H, Eosinophils (%) (Auto) 5.1H, Basophils (%) (Auto) 2.0, Sodium Level 144, Potassium Level 4.1, Chloride Level 109H, Carbon Dioxide Level 29, Anion Gap 6, Blood Urea Nitrogen 18, Creatinine 0.9, Estimat Glomerular Filtration Rate > 60, Glucose Level 113H, Calcium Level 9.8, Total Bilirubin 0.3, Aspartate Amino Transf (AST/SGOT) 20, Alanine Aminotransferase (ALT/SGPT) 34, Alkaline Phosphatase 92, Total Protein 6.8, Albumin 2.4L, Globulin 4.4, Albumin/Globulin Ratio 0.5L 03/20/20 22:50: POC Whole Blood Glucose [Pending] 03/21/20 03:00: White Blood Count 16.7H, Red Blood Count 3.52L, Hemoglobin 9.2L, Hematocrit 29.2L, Mean Corpuscular Volume 83, Mean Corpuscular Hemoglobin 26.2L, Mean Corpuscular Hemoglobin Concent 31.5L, Red Cell Distribution Width 17.1H, Platelet Count 531H, Mean Platelet Volume 7.7, Neutrophils (%) (Auto) 69.1, Lymphocytes (%) (Auto) 17.0L, Monocytes (%) (Auto) 8.6, Eosinophils (%) (Auto) 4.2H, Basophils (%) (Auto) 1.1, Sodium Level 145, Potassium Level 4.6, Chloride Level 109H, Carbon Dioxide Level 25, Anion Gap 11, Blood Urea Nitrogen 19H, Creatinine 0.9, Estimat Glomerular Filtration Rate > 60, Glucose Level 111H, Calcium Level 9.5 03/21/20 04:57: POC Whole Blood Glucose 127H Height (Feet): 5 Height (Inches): 10.00 Weight (Pounds): 207 Objective General Appearance: WD/WN, lethargic, confused EENT: PERRL/EOMI, normal ENT inspection Neck: normal alignment Cardiovascular: normal rate, regular rhythm Respiratory/Chest: chest wall non-tender, lungs clear, normal breath sounds, no respiratory distress Abdomen: normal bowel sounds, non tender, soft, no organomegaly Edema: no edema noted Arm (L), no edema noted Arm (R) Neurologic: disoriented, unresponsive, aphasia Lymphatic: normal anterior cervical (L), normal anterior cervical (R) Assessment/Plan Problem List: (1) Anemia ICD Codes: D64.9 - Anemia, unspecified SNOMED: 424352457 (2) Decubital ulcer ICD Codes: L89.90 - Pressure ulcer of unspecified site, unspecified stage SNOMED: 663261446 (3) Leukocytosis ICD Codes: D72.829 - Elevated white blood cell count, unspecified SNOMED: 232837435 (4) UTI (urinary tract infection) ICD Codes: N39.0 - Urinary tract infection, site not specified SNOMED: 85335399 (5) Pneumonia ICD Codes: J18.9 - Pneumonia, unspecified organism SNOMED: 344984039 (6) Urinary retention ICD Codes: R33.9 - Retention of urine, unspecified SNOMED: 394849254 (7) Pneumonia ICD Codes: J18.9 - Pneumonia, unspecified organism SNOMED: 991417253 (8) Encephalopathy chronic ICD Codes: G93.49 - Encephalopathy chronic SNOMED: 87576770 (9) Diabetes mellitus out of control ICD Codes: E11.9 - Diabetes mellitus out of control SNOMED: 124411198 (10) BPH (benign prostatic hyperplasia) ICD Codes: N40.0 - Benign prostatic hyperplasia without lower urinary tract symptoms SNOMED: 966312851 (11) Stage 4 skin ulcer of sacral region ICD Codes: L98.429 - Non-pressure chronic ulcer of back with unspecified severity SNOMED: 35263359, 054301990 (12) Septicemia (13) Urosepsis Status: stable Assessment/Plan: cont iv/inhaled abx vent support wean as able suctioning resp rx wound care gt feeds monitor residuals monitor labs insulin coverage epo and iron monitor labs turn q2 Jeremiah Perkins MD Mar 21, 2020 09:59
--- NOTE | 2020-03-21 10:37 | Pulmonology Progress Note ---
Subjective ROS Limited/Unobtainable: Yes Constitutional: Denies: fever Allergies: Coded Allergies: No Known Allergies (Unverified , 02/11/13) All Systems: reviewed and negative except above Subjective cultures noted all reviewed on vent NAD Objective Last 24 Hour Vital Signs Date Time Temp Pulse Resp B/P (MAP) Pulse Ox O2 Delivery O2 Flow Rate FiO2 03/21/20 09:06 80 157/77 03/21/20 09:05 80 157/77 03/21/20 08:01 80 16 40 03/21/20 08:00 Mechanical Ventilator 03/21/20 08:00 40 03/21/20 08:00 98.2 86 16 157/77 (103) 99 03/21/20 07:54 83 03/21/20 05:04 135/66 03/21/20 04:00 Mechanical Ventilator 03/21/20 04:00 40 03/21/20 03:54 98.4 79 18 150/75 (100) 100 03/21/20 03:51 83 03/21/20 03:12 54 16 40 03/21/20 00:00 98.2 68 16 119/64 (82) 100 03/21/20 00:00 40 03/21/20 00:00 Mechanical Ventilator 03/20/20 23:38 67 03/20/20 23:12 69 16 100 Mechanical Ventilator 40 72 16 40 03/20/20 21:18 119/69 03/20/20 20:17 71 134/73 03/20/20 20:00 40 03/20/20 20:00 Mechanical Ventilator 03/20/20 20:00 98.1 71 18 134/73 (93) 100 03/20/20 19:32 67 03/20/20 19:04 70 16 40 03/20/20 16:00 98.2 72 18 117/62 (80) 100 03/20/20 16:00 58 03/20/20 16:00 40 03/20/20 16:00 Mechanical Ventilator 03/20/20 15:15 79 22 40 03/20/20 13:38 111/67 03/20/20 12:00 40 03/20/20 12:00 62 03/20/20 12:00 97.3 76 20 111/67 (82) 100 03/20/20 12:00 Mechanical Ventilator 03/20/20 11:10 57 16 40 Intake and Output 03/20/20 03/21/20 19:00 07:00 Intake Total 472.5 ml 1005.0 ml Output Total 1100 ml Balance 472.5 ml -95.0 ml Free Water 300 ml IV Total 27.5 ml 165.0 ml Tube Feeding 445 ml 540 ml Output Urine Total 1100 ml Objective WDWN NAD trach clear breath sounds bilaterally without rhonchi or wheeze [id number] without MRG NABS nontender no distention; gt no CCE nonfocal poor LOC krishnan Laboratory Tests 03/20/20 13:32: POC Whole Blood Glucose 119H 03/20/20 17:17: POC Whole Blood Glucose 102 03/20/20 17:45: White Blood Count 13.0H, Red Blood Count 3.47L, Hemoglobin 9.2L, Hematocrit 2 9.9L, Mean Corpuscular Volume 86, Mean Corpuscular Hemoglobin 26.5L, Mean Corpuscular Hemoglobin Concent 30.8L, Red Cell Distribution Width 17.9H, Platelet Count 468H, Mean Platelet Volume 9.2, Neutrophils (%) (Auto) 65.2, Lymphocytes (%) (Auto) 17.3L, Monocytes (%) (Auto) 10.4H, Eosinophils (%) (Auto) 5.1H, Basophils (%) (Auto) 2.0, Sodium Level 144, Potassium Level 4.1, Chloride Level 109H, Carbon Dioxide Level 29, Anion Gap 6, Blood Urea Nitrogen 18, Crea tinine 0.9, Estimat Glomerular Filtration Rate > 60, Glucose Level 113H, Calcium Level 9.8, Total Bilirubin 0.3, Aspartate Amino Transf (AST/SGOT) 20, Alanine Aminotransferase (ALT/SGPT) 34, Alkaline Phosphatase 92, Total Protein 6.8, Albumin 2.4L, Globulin 4.4, Albumin/Globulin Ratio 0.5L 03/20/20 22:50: POC Whole Blood Glucose [Pending] 03/21/20 03:00: White Blood Count 16.7H, Red Blood Count 3.52L, Hemoglobin 9.2L, Hematocrit 29.2L, Mean Corpuscular Volume 83, Mean Corpuscular Hemoglobin 26.2L, Mean Corpuscular Hemoglobin Concent 31.5L, Red Cell Distribution Width 17.1H, Platelet Count 531H, Mean Platelet Volume 7.7, Neutrophils (%) (Auto) 69.1, Lymphocytes (%) (Auto) 17.0L, Monocytes (%) (Auto) 8.6, Eosinophils (%) (Auto) 4.2H, Basophils (%) (Auto) 1.1, Sodium Level 145, Potassium Level 4.6, Chloride Level 109H, Carbon Dioxide Level 25, Anion Gap 11, Blood Urea Nitrogen 19H, Creatinine 0.9, Estimat Glomerular Filtration Rate > 60, Glucose Level 111H, Calcium Level 9.5 03/21/20 04:57: POC Whole Blood Glucose 127H Current Medications Medications (Trade) Dose Ordered Sig/Magda Route PRN Reason Start Time Stop Time Status Last Admin Dose Admin Acetaminophen (Tylenol) 650 mg DAILY PRN ORAL pain mgt 03/15/20 16:00 04/14/20 15:59 03/15/20 20:15 Amlodipine Besylate (Norvasc) 5 mg DAILY GT 03/20/20 09:00 04/19/20 08:59 03/21/20 09:05 Ascorbic Acid (Vitamin C) 500 mg DAILY GT 03/16/20 09:00 04/15/20 08:59 03/21/20 09:02 Bisacodyl (Dulcolax) 10 mg DAILY PRN RECTAL Constipation 03/15/20 16:00 06/13/20 15:59 Calcium Carbonate (Calcium Carbonate) 650 mg DAILY GT 03/16/20 09:00 06/14/20 08:59 03/21/20 09:02 Chlorhexidine Gluconate (Ingris-Hex 2%) 1 applic DAILY@2000 TOPIC 03/16/20 20:00 06/14/20 19:59 03/20/20 20:16 Clonidine HCl (Catapres Tab) 0.1 mg Q6H PRN GT HTN SBP > 160 03/15/20 16:00 06/13/20 15:59 Dextrose (Dextrose 50%) 25 ml Q30M PRN IV Hypoglycemia 03/15/20 16:00 06/13/20 15:59 Dextrose (Dextrose 50%) 50 ml Q30M PRN IV Hypoglycemia 03/15/20 16:00 06/13/20 15:59 03/18/20 05:04 Docusate Sodium (Colace) 100 mg TWICE A DAY GT 03/16/20 09:00 04/15/20 08:59 03/21/20 09:02 Doxazosin Mesylate (Cardura) 2 mg BEDTIME GT 03/15/20 21:00 04/14/20 20:59 03/20/20 20:17 Epoetin Anson (Epoetin Anson-EPBX(NON ESRD)) 2,000 unit MON-MON-MON SUBQ 03/20/20 21:00 06/18/20 20:59 03/20/20 21:01 Epoetin Anson (Epoetin Anson-EPBX(NON ESRD)) 3,000 unit MON-MON-MON SUBQ 03/20/20 21:00 06/18/20 20:59 03/20/20 21:01 Finasteride (Proscar) 5 mg DAILY ORAL 03/16/20 09:00 06/14/20 08:59 03/21/20 09:07 Gentamicin Sulfate (Gentamicin vial) 300 mg Q12HR@10,22 INH 03/20/20 22:00 03/27/20 21:59 03/20/20 22:00 Heparin Sodium (Porcine) (Heparin 5000 units/ml) 5,000 units EVERY 12 HOURS SUBQ 03/15/20 21:00 04/29/20 20:59 03/21/20 09:04 Hydralazine HCl (Apresoline) 50 mg EVERY 8 HOURS GT 03/15/20 22:00 06/13/20 21:59 03/21/20 05:04 Insulin Aspart (NovoLOG) EVERY 6 HOURS SUBQ 03/18/20 00:00 06/13/20 16:29 03/19/20 11:53 Insulin Detemir (Levemir) 20 units BID SUBQ 03/18/20 09:00 06/16/20 08:59 03/21/20 09:05 Magnesium Hydroxide (Mom) 30 ml BEDTIME PRN GT Constipation 03/15/20 16:00 04/14/20 15:59 Metoprolol Tartrate (Lopressor) 25 mg EVERY 12 HOURS GT 03/15/20 21:00 06/13/20 20:59 03/21/20 09:06 Piperacillin Sod/ Tazobactam Sod 3.375 gm/Sodium Chloride 110 ml @ 27.5 mls/hr EVERY 8 HOURS IVPB 03/15/20 22:00 03/24/20 23:59 03/21/20 05:00 Saccharomyces Boulardii (Florastor) 250 mg TWICE A DAY GT 03/15/20 18:00 06/13/20 17:59 03/21/20 09:02 Sodium Phosphate (Fleet's Sodium Phosl Enema) 133 ml DAILYPRN PRN RECTAL Constipation 03/15/20 16:00 04/14/20 15:59 Tamsulosin HCl (Flomax) 0.4 mg BEDTIME ORAL 03/15/20 21:00 04/14/20 20:59 03/20/20 20:17 Zinc Oxide (Zinc Oxide) 1 applic THREE TIMES A DAY TOPIC 03/15/20 18:00 06/13/20 17:59 03/21/20 09:02 Assessment/Plan Assessment/Plan IMPRESSION respiratory failure chronic osteomyelitis leukocytosis anemia trach GT chronic encephalopathy PLAN IV antibiotics reviewed reviewed cultures care noted and discussed respiratory care as is may try off vent as prior- was on trach collar monitor oxygen needs and ataper wound care as is and position change feeds and monitor residuals off load and wound care monitor HH transfuse PRN monitor wbc and proceed with dc if cleared by ID - near baseline impression, plan, and exam edited and reviewed in detail care discussed with Silver Correa MD Mar 21, 2020 10:37
[2020-03-21] MEDS: Gentamicin for inhalation INH SCH ×2 (11:07→22:37)
[2020-03-21 12:00] VITALS: BP 141/70
--- NOTE | 2020-03-21 15:51 | General Progress Note ---
Subjective Allergies: Coded Allergies: No Known Allergies (Unverified , 02/11/13) Subjective calm unresponsive on TF Less GT site leak Objective Last 24 Hour Vital Signs Date Time Temp Pulse Resp B/P (MAP) Pulse Ox O2 Delivery O2 Flow Rate FiO2 03/21/20 12:00 98.4 82 18 141/70 (93) 100 03/21/20 12:00 Mechanical Ventilator 03/21/20 12:00 40 03/21/20 11:47 86 03/21/20 11:04 82 16 40 03/21/20 09:06 80 157/77 03/21/20 09:05 80 157/77 03/21/20 08:01 80 16 40 03/21/20 08:00 Mechanical Ventilator 03/21/20 08:00 40 03/21/20 08:00 98.2 86 16 157/77 (103) 99 03/21/20 07:54 83 03/21/20 05:04 135/66 03/21/20 04:00 Mechanical Ventilator 03/21/20 04:00 40 03/21/20 03:54 98.4 79 18 150/75 (100) 100 03/21/20 03:51 83 03/21/20 03:12 54 16 40 03/21/20 00:00 98.2 68 16 119/64 (82) 100 03/21/20 00:00 40 03/21/20 00:00 Mechanical Ventilator 03/20/20 23:38 67 03/20/20 23:12 69 16 100 Mechanical Ventilator 40 72 16 40 03/20/20 21:18 119/69 03/20/20 20:17 71 134/73 03/20/20 20:00 40 03/20/20 20:00 Mechanical Ventilator 03/20/20 20:00 98.1 71 18 134/73 (93) 100 03/20/20 19:32 67 03/20/20 19:04 70 16 40 03/20/20 16:00 98.2 72 18 117/62 (80) 100 03/20/20 16:00 58 03/20/20 16:00 40 03/20/20 16:00 Mechanical Ventilator Intake and Output 03/20/20 03/21/20 19:00 07:00 Intake Total 472.5 ml 1005.0 ml Output Total 1100 ml Balance 472.5 ml -95.0 ml Free Water 300 ml IV Total 27.5 ml 165.0 ml Tube Feeding 445 ml 540 ml Output Urine Total 1100 ml Laboratory Tests 03/20/20 17:17: POC Whole Blood Glucose 102 03/20/20 17:45: White Blood Count 13.0H, Red Blood Count 3.47L, Hemoglobin 9.2L, Hematocrit 29.9L, Mean Corpuscular Volume 86, Mean Corpuscular Hemoglobin 26.5L, Mean Corpuscular Hemoglobin Concent 30.8L, Red Cell Distribution Width 17.9H, Platelet Count 468H, Mean Platelet Volume 9.2, Neutrophils (%) (Auto) 65.2, Lymphocytes (%) (Auto) 17.3L, Monocytes (%) (Auto) 10.4H, Eosinophils (%) (Auto) 5.1H, Basophils (%) (Auto) 2.0, Sodium Level 144, Potassium Level 4.1, Chloride Level 109H, Carbon Dioxide Level 29, Anion Gap 6, Blood Urea Nitrogen 18, Creatinine 0.9, Estimat Glomerular Filtration Rate > 60, Glucose Level 113H, Calcium Level 9.8, Total Bilirubin 0.3, Aspartate Amino Transf (AST/SGOT) 20, Alanine Aminotransferase (ALT/SGPT) 34, Alkaline Phosphatase 92, Total Protein 6.8, Albumin 2.4L, Globulin 4.4, Albumin/Globulin Ratio 0.5L 03/20/20 22:50: POC Whole Blood Glucose [Pending] 03/21/20 03:00: White Blood Count 16.7H, Red Blood Count 3.52L, Hemoglobin 9.2L, Hematocrit 29.2L, Mean Corpuscular Volume 83, Mean Corpuscular Hemoglobin 26.2L, Mean Corpuscular Hemoglobin Concent 31.5L, Red Cell Distribution Width 17.1H, Platelet Count 531H, Mean Platelet Volume 7.7, Neutrophils (%) (Auto) 69.1, Lymphocytes (%) (Auto) 17.0L, Monocytes (%) (Auto) 8.6, Eosinophils (%) (Auto) 4.2H, Basophils (%) (Auto) 1.1, Sodium Level 145, Potassium Level 4.6, Chloride Level 109H, Carbon Dioxide Level 25, Anion Gap 11, Blood Urea Nitrogen 19H, Creatinine 0.9, Estimat Glomerular Filtration Rate > 60, Glucose Level 111H, Calcium Level 9.5 03/21/20 04:57: POC Whole Blood Glucose 127H Height (Feet): 5 Height (Inches): 10.00 Weight (Pounds): 207 Objective Elderly man NCAT supple CTA RR abd distended, (+) abd wall hernia (+) GT with some GT site acid dermatitis, improved no edema Assessment/Plan Status: stable Assessment/Plan: Assessment - Anoxic encephalopathy - dysphagia / s/p GT - GT site acid dermatitis - improving - Resp failure, s/p trach - CVA - HTN - DM - Leukocytosis, sepsis - Osteo - Poor px Recommendations - s/p GT change - GT feeds - Monitor GT for leaking - GT dressing changed to TID - GT site care - Elevate HOB - x Rose Carranza MD Mar 21, 2020 15:51
[2020-03-21 16:00] VITALS: BP 148/79
--- NOTE | 2020-03-21 19:55 | Surgery Progress Note ---
Surgery Progress Note Subjective Symptoms: tolerating diet, passing flatus, BM, pain decreased Objective Last 24 Hour Vital Signs Date Time Temp Pulse Resp B/P (MAP) Pulse Ox O2 Delivery O2 Flow Rate FiO2 03/21/20 18:57 82 16 40 03/21/20 16:00 98.8 87 16 148/79 (102) 100 03/21/20 16:00 40 03/21/20 16:00 77 03/21/20 16:00 Mechanical Ventilator 03/21/20 15:55 141/70 03/21/20 15:04 93 16 40 03/21/20 12:00 98.4 82 18 141/70 (93) 100 03/21/20 12:00 Mechanical Ventilator 03/21/20 12:00 40 03/21/20 11:47 86 03/21/20 11:04 82 16 40 03/21/20 09:06 80 157/77 03/21/20 09:05 80 157/77 03/21/20 08:01 80 16 40 03/21/20 08:00 Mechanical Ventilator 03/21/20 08:00 40 03/21/20 08:00 98.2 86 16 157/77 (103) 99 03/21/20 07:54 83 03/21/20 05:04 135/66 03/21/20 04:00 Mechanical Ventilator 03/21/20 04:00 40 03/21/20 03:54 98.4 79 18 150/75 (100) 100 03/21/20 03:51 83 03/21/20 03:12 54 16 40 03/21/20 00:00 98.2 68 16 119/64 (82) 100 03/21/20 00:00 40 03/21/20 00:00 Mechanical Ventilator 03/20/20 23:38 67 03/20/20 23:12 69 16 100 Mechanical Ventilator 40 72 16 40 03/20/20 21:18 119/69 03/20/20 20:17 71 134/73 03/20/20 20:00 40 03/20/20 20:00 Mechanical Ventilator 03/20/20 20:00 98.1 71 18 134/73 (93) 100 I&O Intake and Output 03/20/20 03/21/20 19:00 07:00 Intake Total 472.5 ml 1005.0 ml Output Total 1100 ml Balance 472.5 ml -95.0 ml Free Water 300 ml IV Total 27.5 ml 165.0 ml Tube Feeding 445 ml 540 ml Output Urine Total 1100 ml Dressing: saturated Cardiovascular: RSR Respiratory: decreased breath sounds Abdomen: soft, non-tender, present bowel sounds Extremities: no tenderness, no cyanosis Laboratory Tests Test 03/20/20 22:50 03/21/20 03:00 03/21/20 04:57 POC Whole Blood Glucose Pending 127 MG/DL (74-106) H White Blood Count 16.7 K/UL (4.8-10.8) H Red Blood Count 3.52 M/UL (4.70-6.10) L Hemoglobin 9.2 G/DL (14.2-18.0) L Hematocrit 29.2 % (42.0-52.0) L Mean Corpuscular Volume 83 FL (80-99) Mean Corpuscular Hemoglobin 26.2 PG (27.0-31.0) L Mean Corpuscular Hemoglobin Concent 31.5 G/DL (32.0-36.0) L Red Cell Distribution Width 17.1 % (11.6-14.8) H Platelet Count 531 K/UL (150-450) H Mean Platelet Volume 7.7 FL (6.5-10.1) Neutrophils (%) (Auto) 69.1 % (45.0-75.0) Lymphocytes (%) (Auto) 17.0 % (20.0-45.0) L Monocytes (%) (Auto) 8.6 % (1.0-10.0) Eosinophils (%) (Auto) 4.2 % (0.0-3.0) H Basophils (%) (Auto) 1.1 % (0.0-2.0) Sodium Level 145 MMOL/L (136-145) Potassium Level 4.6 MMOL/L (3.5-5.1) Chloride Level 109 MMOL/L (98-107) H Carbon Dioxide Level 25 MMOL/L (21-32) Anion Gap 11 mmol/L (5-15) Blood Urea Nitrogen 19 mg/dL (7-18) H Creatinine 0.9 MG/DL (0.55-1.30) Estimat Glomerular Filtration Rate > 60 mL/min (>60) Glucose Level 111 MG/DL (74-106) H Calcium Level 9.5 MG/DL (8.5-10.1) Plan Problems: (1) Anemia (2) Decubital ulcer Assessment & Plan: Patient presented admission with a stage IV sacral decubitus ulcer and deep tissue injury wound with maceration of skin as well as into the buttock. Wound evaluated bedside with care team. Care plan and dressings applied. Thera honey initiated. Will follow with recommendations and care plan. Pt presented on admission with Tracheostomy,Erosion at GT site, Multiple Pressure injuries. Skin assessed around collar of trach and no areas of skin breakdown noted. Insertion site and Peristomal GT erythematous and macerated. Silver Nitrate x1 application applied. Full Thickness Pressure Injury with tunneling R Buttocks (L)5.8cm x (W)3.4cm x (D)2.7cm,Tunneling clockwise 11-12 by 3.9cm @12 o'clock. Beefy granulation at base of wound.Bone is palpable at base of wound. Edges are flat and adherent to base of wound. Calvary epithelial with scattered areas of hyperpigmentation periwound. Small amt sanguineous exudate noted. No odor noted. Partial thickness wounds in L shape formation noted R buttocks in close proximity to above wound. Marginal erythema along borders. (L)9.2cm x (W)5.5cm. Small amt serosanguineous exudate noted. Partially opened DTPI Sacrum (L)6.2cm x (W)3.3cm. Base of wound is purpuric and fluctuant with macerated borders including periwound. Scrotum is erythematous. Non-Blanchable erythema without fluctuance or induration R and L heels. Tx.Plan: Cleanse Sacral wound with Saline. Apply TheraHoney. Apply Moisture Barrier Paste periwound. Cover with Optifoam Drsg Daily and prn. Cleanse wound R Buttocks with Saline. Loosely pack with Therahoney impregnated Kerlix. Apply Moisture Barrier Paste periwound. Cover with Optifoam drsg. Change Daily and Prn. Apply Moisture Barrier paste to wound Outer R Buttocks. Cover with Optifoam drsg. Change every 3 days and prn. Apply Moisture Barrier Paste to Scrotum and groin area with each Incontinence care. Cleanse GT site with soap and water. Pat dry. Apply Zinc Oxide Paste to GT Site BID. Apply Cavilon Skin Barrier to both heels and Malleoli. Cover each site with Optifoam drsgs. Change every 7 days and prn. Reposition at least every 2hours or as tolerated. Off-load heels with pillow. APM/DALTON Mattress overlay. (3) Leukocytosis Assessment & Plan: There appears to be a large open wound in the inferomedial right buttock adjacent to the right ischium. There are a few gas bubbles within the soft tissues subjacent to this. No discrete fluid collection demonstrated. There is some infiltration of the tissues lateral to the ischium. There is evidence of cortical erosion and bone loss of posterior and inferior ischium, consistent with osteomyelitis. on abx picc cont tx micro reviewed plan repeat CT - as below improved Again demonstrated is a wound in the right ischial region. This appears to contain some packing material. This appears to penetrate much less deeply than on the prior study, as no deep gas bubbles are evident. Density in the area appears to be scar tissue rather than fluid. Again demonstrated is erosion of the adjacent ischium, extent of which appears to be unchanged. Again demonstrated is extensive heterotopic ossification and degenerative change about the left hip. Again demonstrated is a left inguinal hernia that contains only fat. Again demonstrated is broad-based diastasis of the rectus abdominis tendon above the umbilicus, bordering on herniation. There is also a tiny fat-containing umbilical hernia. There is evidence of prior surgery in the region. There is no evidence of obstruction. There is distention of the rectum by feces. This appears less severe than on the prior study. Again demonstrated is extensive colonic diverticulosis. No evidence of diverticulitis. What appears to be a short normal appendix is evident. No small bowel distention. No free or loculated intraperitoneal gas or fluid is evident. No small bowel wall thickening. There is a gastrostomy in place which appears well- positioned. There is evidence of prior gastric surgery. The distal esophagus and duodenum are unremarkable. The gallbladder contains gallstones. Lack of IV contrast limits assessment of the solid organs. The liver is grossly unremarkable. The pancreas is atrophic and nearly completely fatty replaced. The spleen is not demonstrated, although there is evidence of some scattered splenic tissue in the left upper quadrant. The adrenals are unremarkable. Right renal staghorn calculi and other calyceal calculi are again demonstrated. Left renal parapelvic cyst or cysts are again demonstrated. A small peripheral calyceal calculus is also demonstrated in the left kidney. No retroperitoneal or mesenteric mass or adenopathy. The bladder is empty, contains a Peters catheter. Calculi are again demonstrated within the bladder. The prostate is enlarged. The lung bases demonstrate considerable consolidation involving the right lower lobe. There is also a component of volume loss. There is some posterior dependent atelectasis of the left lung as well. The bones demonstrate degenerative spondylosis changes, appearing similar to the previous study. There is a stable mild compression fracture deformity of the L3 vertebral body. Impression: Right ischial region wound, consistent with known clinical history of decubitus changes in this area. This appears to demonstrate some interim healing since previous study. Stable erosive changes of the adjacent ischium. No definite evidence of abscess, although evaluation for such is limited given the absence of IV contrast administration. Evidence of rectal fecal impaction, less severe than on the previous study. Diverticulosis, also previously reported Cholelithiasis, also previously reported Unchanged right renal staghorn and other calculi, small left renal calculus Right lower lobe consolidation and volume loss. Less extensive atelectasis of the posterior left lung Broad-based diastasis of the rectus abdominis tendon bordering on herniation, nonobstructive, also previously reported Absent spleen. There is evidence of some scattered splenic tissue in the left upper quadrant, also previously reported Other findings as noted, including gastrostomy, evidence of prior gastric surgery, atrophic fatty replaced pancreas, left renal parapelvic cyst or cysts, Peters catheter, enlarged prostate, bladder calculi, degenerative spondylosis, stable L3 vertebral body mild compression fracture deformity (4) UTI (urinary tract infection) (5) Pneumonia (6) Septic shock (7) Urinary retention (8) Hematuria (9) Hematuria (10) Failure to thrive (11) Fecal impaction (12) Hypernatremia (13) Bowel obstruction (14) Bowel obstruction (15) Leukocytosis (16) Respiratory failure (17) Sepsis (18) Sepsis (19) Respiratory failure, chronic (20) SBO (small bowel obstruction) (21) Hypertension (22) Pneumonia (23) [address] (24) Pneumonia (25) Pneumonia (26) Encephalopathy acute (27) Encephalopathy chronic (28) Abnormal laboratory test result (29) Diabetes mellitus out of control (30) BPH (benign prostatic hyperplasia) (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
[2020-03-21 20:00] VITALS: BP 147/78
[2020-03-21] MEDS: Dyna-Hex 2% Top Sol 2oz TOPIC SCH (20:00)
[2020-03-21] MEDS: Doxazosin 1mg Tab GT SCH (20:34)
[2020-03-21] MEDS: Tamsulosin 0.4mg cap ORAL SCH (20:35)
--- NOTE | 2020-03-21 20:52 | Cardiology Progress Note ---
Subjective DATE OF SERVICE: Mar 21, 2020 On vent support via trach - Tcollar being considered. BP trend stabilized Urine culture + yeast Monitor: sinus WBC count improved Objective Last 24 Hour Vital Signs Date Time Temp Pulse Resp B/P (MAP) Pulse Ox O2 Delivery O2 Flow Rate FiO2 03/21/20 20:34 84 147/78 03/21/20 18:57 82 16 40 03/21/20 16:00 98.8 87 16 148/79 (102) 100 03/21/20 16:00 40 03/21/20 16:00 77 03/21/20 16:00 Mechanical Ventilator 03/21/20 15:55 141/70 03/21/20 15:04 93 16 40 03/21/20 12:00 98.4 82 18 141/70 (93) 100 03/21/20 12:00 Mechanical Ventilator 03/21/20 12:00 40 03/21/20 11:47 86 03/21/20 11:04 82 16 40 03/21/20 09:06 80 157/77 03/21/20 09:05 80 157/77 03/21/20 08:01 80 16 40 03/21/20 08:00 Mechanical Ventilator 03/21/20 08:00 40 03/21/20 08:00 98.2 86 16 157/77 (103) 99 03/21/20 07:54 83 03/21/20 05:04 135/66 03/21/20 04:00 Mechanical Ventilator 03/21/20 04:00 40 03/21/20 03:54 98.4 79 18 150/75 (100) 100 03/21/20 03:51 83 03/21/20 03:12 54 16 40 03/21/20 00:00 98.2 68 16 119/64 (82) 100 03/21/20 00:00 40 03/21/20 00:00 Mechanical Ventilator 03/20/20 23:38 67 03/20/20 23:12 69 16 100 Mechanical Ventilator 40 72 16 40 03/20/20 21:18 119/69 ROS: no change from my dictation of 03/15/20 HEENT: Mechanically Ventilated, Thick Trach secretions RHYTHM: NSR LUNGS: bilateral rhonchi CARDIAC: regular rhythm, normal S1 and S2, rapid rate, tachycardia ABDOMEN: non tender, soft, no organomegaly, G-Tube intact EXTREMITIES: non-tender, No edema, other - sacral decub; Neuro unresponsive Laboratory Tests Test 03/20/20 22:50 03/21/20 03:00 03/21/20 04:57 POC Whole Blood Glucose Pending 127 MG/DL (74-106) H White Blood Count 16.7 K/UL (4.8-10.8) H Red Blood Count 3.52 M/UL (4.70-6.10) L Hemoglobin 9.2 G/DL (14.2-18.0) L Hematocrit 29.2 % (42.0-52.0) L Mean Corpuscular Volume 83 FL (80-99) Mean Corpuscular Hemoglobin 26.2 PG (27.0-31.0) L Mean Corpuscular Hemoglobin Concent 31.5 G/DL (32.0-36.0) L Red Cell Distribution Width 17.1 % (11.6-14.8) H Platelet Count 531 K/UL (150-450) H Mean Platelet Volume 7.7 FL (6.5-10.1) Neutrophils (%) (Auto) 69.1 % (45.0-75.0) Lymphocytes (%) (Auto) 17.0 % (20.0-45.0) L Monocytes (%) (Auto) 8.6 % (1.0-10.0) Eosinophils (%) (Auto) 4.2 % (0.0-3.0) H Basophils (%) (Auto) 1.1 % (0.0-2.0) Sodium Level 145 MMOL/L (136-145) Potassium Level 4.6 MMOL/L (3.5-5.1) Chloride Level 109 MMOL/L (98-107) H Carbon Dioxide Level 25 MMOL/L (21-32) Anion Gap 11 mmol/L (5-15) Blood Urea Nitrogen 19 mg/dL (7-18) H Creatinine 0.9 MG/DL (0.55-1.30) Estimat Glomerular Filtration Rate > 60 mL/min (>60) Glucose Level 111 MG/DL (74-106) H Calcium Level 9.5 MG/DL (8.5-10.1) Assessment/Plan Assessment/Plan Severe sepsis Fungal cystitis Respiratory failure with trach Chronic encephalopathy HC assoc PNA Hypertension/HHC now with stable BP trend Acute/chronic diastolic CHF Anemia Dysphagia with GTube Dehydration/hypernatremia Anti-fungal therapy Vent Resp Rx Trend BNP; adjust fluids accordingly - adjust free water by Gtube DVT prophyl Nutritional support by Gtube BP better stabilized on decreased amlodipine dose, but can readvance if trends upward. Brady Burks MD Mar 21, 2020 20:52
[2020-03-22] VITALS: BP 117/67
[2020-03-22 04:00] VITALS: BP 112/60
[2020-03-22] MEDS: Piperacillin/Tazobactam 3.375 GM in NS 110 ML IVPB SCH ×3 (05:40→21:28)
[2020-03-22] MEDS: HydrALAZINE 50mg tab GT SCH ×3 (05:48→21:27)
[2020-03-22] MEDS: NovoLOG Insulin Flexpen SUBQ SCH ×4 (06:00→23:30)
[2020-03-22 08:00] VITALS: BP 143/68
--- NOTE | 2020-03-22 08:03 | Surgery Progress Note ---
Surgery Progress Note Subjective Additional Comments wbc 16k no n/v labs reviewed great nursing care on air mattress pillows and guards in place Objective Last 24 Hour Vital Signs Date Time Temp Pulse Resp B/P (MAP) Pulse Ox O2 Delivery O2 Flow Rate FiO2 03/22/20 05:48 129/67 03/22/20 04:00 40 03/22/20 04:00 65 03/22/20 04:00 98.4 61 16 112/60 (77) 100 03/22/20 04:00 Mechanical Ventilator 03/22/20 02:35 70 16 40 03/22/20 00:00 Mechanical Ventilator 03/22/20 00:00 98.6 76 16 117/67 (84) 100 03/21/20 23:33 72 03/21/20 22:37 76 16 100 Mechanical Ventilator 40 81 16 40 03/21/20 21:39 117/61 03/21/20 20:34 84 147/78 03/21/20 20:00 40 03/21/20 20:00 99.0 84 16 147/78 (101) 100 03/21/20 20:00 Mechanical Ventilator 03/21/20 19:52 80 03/21/20 18:57 82 16 40 03/21/20 16:00 98.8 87 16 148/79 (102) 100 03/21/20 16:00 40 03/21/20 16:00 77 03/21/20 16:00 Mechanical Ventilator 03/21/20 15:55 141/70 03/21/20 15:04 93 16 40 03/21/20 12:00 98.4 82 18 141/70 (93) 100 03/21/20 12:00 Mechanical Ventilator 03/21/20 12:00 40 03/21/20 11:47 86 03/21/20 11:04 82 16 40 03/21/20 09:06 80 157/77 03/21/20 09:05 80 157/77 I&O Intake and Output 03/21/20 03/22/20 19:00 07:00 Intake Total 745 ml 1007.5 ml Output Total 1100 ml Balance -355 ml 1007.5 ml Free Water 250 ml 330 ml IV Total 137.5 ml Tube Feeding 495 ml 540 ml Output Urine Total 1100 ml # Bowel Movements 1 Dressing: dry Wound: clean Cardiovascular: RSR Respiratory: clear, decreased breath sounds Abdomen: soft, non-tender, present bowel sounds Extremities: no tenderness, no cyanosis, other Laboratory Tests Test 03/21/20 23:19 03/22/20 05:56 POC Whole Blood Glucose 122 MG/DL (74-106) H 105 MG/DL (74-106) Plan Problems: (1) Anemia (2) Decubital ulcer Assessment & Plan: Patient presented admission with a stage IV sacral decubitus ulcer and deep tissue injury wound with maceration of skin as well as into the buttock. Wound evaluated bedside with care team. Care plan and dressings applied. Thera honey initiated. Will follow with recommendations and care plan. Pt presented on admission with Tracheostomy,Erosion at GT site, Multiple Pressure injuries. Skin assessed around collar of trach and no areas of skin breakdown noted. Insertion site and Peristomal GT erythematous and macerated. Silver Nitrate x1 application applied. Full Thickness Pressure Injury with tunneling R Buttocks (L)5.8cm x (W)3.4cm x (D)2.7cm,Tunneling clockwise 11-12 by 3.9cm @12 o'clock. Beefy granulation at base of wound.Bone is palpable at base of wound. Edges are flat and adherent to base of wound. Register epithelial with scattered areas of hyperpigmentation periwound. Small amt sanguineous exudate noted. No odor noted. Partial thickness wounds in L shape formation noted R buttocks in close proximity to above wound. Marginal erythema along borders. (L)9.2cm x (W)5.5cm. Small amt serosanguineous exudate noted. Partially opened DTPI Sacrum (L)6.2cm x (W)3.3cm. Base of wound is purpuric and fluctuant with macerated borders including periwound. Scrotum is erythematous. Non-Blanchable erythema without fluctuance or induration R and L heels. Tx.Plan: Cleanse Sacral wound with Saline. Apply TheraHoney. Apply Moisture Barrier Paste periwound. Cover with Optifoam Drsg Daily and prn. Cleanse wound R Buttocks with Saline. Loosely pack with Therahoney impregnated Kerlix. Apply Moisture Barrier Paste periwound. Cover with Optifoam drsg. Change Daily and Prn. Apply Moisture Barrier paste to wound Outer R Buttocks. Cover with Optifoam drsg. Change every 3 days and prn. Apply Moisture Barrier Paste to Scrotum and groin area with each Incontinence care. Cleanse GT site with soap and water. Pat dry. Apply Zinc Oxide Paste to GT Site BID. Apply Cavilon Skin Barrier to both heels and Malleoli. Cover each site with Optifoam drsgs. Change every 7 days and prn. Reposition at least every 2hours or as tolerated. Off-load heels with pillow. APM/DALTON Mattress overlay. (3) Leukocytosis Assessment & Plan: There appears to be a large open wound in the inferomedial right buttock adjacent to the right ischium. There are a few gas bubbles within the soft tissues subjacent to this. No discrete fluid collection demonstrated. There is some infiltration of the tissues lateral to the ischium. There is evidence of cortical erosion and bone loss of posterior and inferior ischium, consistent with osteomyelitis. on abx picc cont tx micro reviewed plan repeat CT - as below improved Again demonstrated is a wound in the right ischial region. This appears to contain some packing material. This appears to penetrate much less deeply than on the prior study, as no deep gas bubbles are evident. Density in the area appears to be scar tissue rather than fluid. Again demonstrated is erosion of the adjacent ischium, extent of which appears to be unchanged. Again demonstrated is extensive heterotopic ossification and degenerative change about the left hip. Again demonstrated is a left inguinal hernia that contains only fat. Again demonstrated is broad-based diastasis of the rectus abdominis tendon above the umbilicus, bordering on herniation. There is also a tiny fat-containing umbilical hernia. There is evidence of prior surgery in the region. There is no evidence of obstruction. There is distention of the rectum by feces. This appears less severe than on the prior study. Again demonstrated is extensive colonic diverticulosis. No evidence of diverticulitis. What appears to be a short normal appendix is evident. No small bowel distention. No free or loculated intraperitoneal gas or fluid is evident. No small bowel wall thickening. There is a gastrostomy in place which appears well-positioned. There is evidence of prior gastric surgery. The distal esophagus and duodenum are unremarkable. The gallbladder contains gallstones. Lack of IV contrast limits assessment of the solid organs. The liver is grossly unremarkable. The pancreas is atrophic and nearly completely fatty replaced. The spleen is not demonstrated, although there is evidence of some scattered splenic tissue in the left upper quadrant. The adrenals are unremarkable. Right renal staghorn calculi and other calyceal calculi are again demonstrated. Left renal parapelvic cyst or cysts are again demonstrated. A small peripheral calyceal calculus is also demonstrated in the left kidney. No retroperitoneal or mesenteric mass or adenopathy. The bladder is empty, contains a Peters catheter. Calculi are again demonstrated within the bladder. The prostate is enlarged. The lung bases demonstrate considerable consolidation involving the right lower lobe. There is also a component of volume loss. There is some posterior dependent atelectasis of the left lung as well. The bones demonstrate degenerative spondylosis changes, appearing similar to the previous study. There is a stable mild compression fracture deformity of the L3 vertebral body. Impression: Right ischial region wound, consistent with known clinical history of decubitus changes in this area. This appears to demonstrate some interim healing since previous study. Stable erosive changes of the adjacent ischium. No definite evidence of abscess, although evaluation for such is limited given the absence of IV contrast administration. Evidence of rectal fecal impaction, less severe than on the previous study. Diverticulosis, also previously reported Cholelithiasis, also previously reported Unchanged right renal staghorn and other calculi, small left renal calculus Right lower lobe consolidation and volume loss. Less extensive atelectasis of the posterior left lung Broad-based diastasis of the rectus abdominis tendon bordering on herniation, nonobstructive, also previously reported Absent spleen. There is evidence of some scattered splenic tissue in the left upper quadrant, also previously reported Other findings as noted, including gastrostomy, evidence of prior gastric surgery, atrophic fatty replaced pancreas, left renal parapelvic cyst or cysts, Peters catheter, enlarged prostate, bladder calculi, degenerative spondylosis, stable L3 vertebral body mild compression fracture deformity (4) UTI (urinary tract infection) (5) Pneumonia (6) Septic shock (7) Urinary retention (8) Hematuria (9) Hematuria (10) Failure to thrive (11) Fecal impaction (12) Hypernatremia (13) Bowel obstruction (14) Bowel obstruction (15) Leukocytosis (16) Respiratory failure (17) Sepsis (18) Sepsis (19) Respiratory failure, chronic (20) SBO (small bowel obstruction) (21) Hypertension (22) Pneumonia (23) [id number] (24) Pneumonia (25) Pneumonia (26) Encephalopathy acute (27) Encephalopathy chronic (28) Abnormal laboratory test result (29) Diabetes mellitus out of control (30) BPH (benign prostatic hyperplasia) (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
[2020-03-22] MEDS: Ascorbic Acid 500mg tab GT SCH (09:30)
[2020-03-22] MEDS: Docusate 100mg/10ml Liq GT SCH ×2 (09:30→17:27)
[2020-03-22] MEDS: Heparin 5000 units/ml inj SUBQ SCH ×2 (09:31→20:11)
[2020-03-22] MEDS: Calcium Carbonate 650mg Tab GT SCH (09:31)
[2020-03-22] MEDS: Levemir Flexpen SUBQ SCH ×2 (09:32→18:20)
[2020-03-22] MEDS: Zinc Oxide Oint 2oz TOPIC SCH ×3 (09:33→18:18)
[2020-03-22] MEDS: Gentamicin for inhalation INH SCH ×2 (09:41→22:42)
--- NOTE | 2020-03-22 09:44 | Pulmonology Progress Note ---
Subjective ROS Limited/Unobtainable: Yes Constitutional: Denies: fever Allergies: Coded Allergies: No Known Allergies (Unverified , 02/11/13) All Systems: reviewed and negative except above Subjective cultures noted all reviewed on vent NAD Objective Last 24 Hour Vital Signs Date Time Temp Pulse Resp B/P (MAP) Pulse Ox O2 Delivery O2 Flow Rate FiO2 03/22/20 09:37 82 143/68 03/22/20 09:36 82 143/68 03/22/20 09:00 82 03/22/20 08:00 97.9 78 18 143/68 (93) 99 03/22/20 05:48 129/67 03/22/20 04:00 40 03/22/20 04:00 65 03/22/20 04:00 98.4 61 16 112/60 (77) 100 03/22/20 04:00 Mechanical Ventilator 03/22/20 02:35 70 16 40 03/22/20 00:00 Mechanical Ventilator 03/22/20 00:00 98.6 76 16 117/67 (84) 100 03/21/20 23:33 72 03/21/20 22:37 76 16 100 Mechanical Ventilator 40 81 16 40 03/21/20 21:39 117/61 03/21/20 20:34 84 147/78 03/21/20 20:00 40 03/21/20 20:00 99.0 84 16 147/78 (101) 100 03/21/20 20:00 Mechanical Ventilator 03/21/20 19:52 80 03/21/20 18:57 82 16 40 03/21/20 16:00 98.8 87 16 148/79 (102) 100 03/21/20 16:00 40 03/21/20 16:00 77 03/21/20 16:00 Mechanical Ventilator 03/21/20 15:55 141/70 03/21/20 15:04 93 16 40 03/21/20 12:00 98.4 82 18 141/70 (93) 100 03/21/20 12:00 Mechanical Ventilator 03/21/20 12:00 40 03/21/20 11:47 86 03/21/20 11:04 82 16 40 Intake and Output 03/21/20 03/22/20 19:00 07:00 Intake Total 745 ml 1007.5 ml Output Total 1100 ml Balance -355 ml 1007.5 ml Free Water 250 ml 330 ml IV Total 137.5 ml Tube Feeding 495 ml 540 ml Output Urine Total 1100 ml # Bowel Movements 1 Objective WDWN NAD trach clear breath sounds bilaterally without rhonchi or wheeze [id number] without MRG NABS nontender no distention; gt no CCE nonfocal poor LOC krishnan Laboratory Tests 03/21/20 23:19: POC Whole Blood Glucose 122H 03/22/20 05:56: POC Whole Blood Glucose 105 Current Medications Medications (Trade) Dose Ordered Sig/Magda Route PRN Reason Start Time Stop Time Status Last Admin Dose Admin Acetaminophen (Tylenol) 650 mg DAILY PRN ORAL pain mgt 03/15/20 16:00 04/14/20 15:59 03/15/20 20:15 Amlodipine Besylate (Norvasc) 5 mg DAILY GT 03/20/20 09:00 04/19/20 08:59 03/22/20 09:37 Ascorbic Acid (Vitamin C) 500 mg DAILY GT 03/16/20 09:00 04/15/20 08:59 03/22/20 09:30 Bisacodyl (Dulcolax) 10 mg DAILY PRN RECTAL Constipation 03/15/20 16:00 06/13/20 15:59 Calcium Carbonate (Calcium Carbonate) 650 mg DAILY GT 03/16/20 09:00 06/14/20 08:59 03/22/20 09:31 Chlorhexidine Gluconate (Ingris-Hex 2%) 1 applic DAILY@2000 TOPIC 03/16/20 20:00 06/14/20 19:59 03/21/20 20:00 Clonidine HCl (Catapres Tab) 0.1 mg Q6H PRN GT HTN SBP > 160 03/15/20 16:00 06/13/20 15:59 Dextrose (Dextrose 50%) 25 ml Q30M PRN IV Hypoglycemia 03/15/20 16:00 06/13/20 15:59 Dextrose (Dextrose 50%) 50 ml Q30M PRN IV Hypoglycemia 03/15/20 16:00 06/13/20 15:59 03/18/20 05:04 Docusate Sodium (Colace) 100 mg TWICE A DAY GT 03/16/20 09:00 04/15/20 08:59 03/22/20 09:30 Doxazosin Mesylate (Cardura) 2 mg BEDTIME GT 03/15/20 21:00 04/14/20 20:59 03/21/20 20:34 Epoetin Anson (Epoetin Anson-EPBX(NON ESRD)) 2,000 unit SUBQ 03/20/20 21:00 06/18/20 20:59 03/20/20 21:01 Epoetin Anson (Epoetin Anson-EPBX(NON ESRD)) 3,000 unit SUBQ 03/20/20 21:00 06/18/20 20:59 03/20/20 21:01 Finasteride (Proscar) 5 mg DAILY ORAL 03/16/20 09:00 06/14/20 08:59 03/22/20 09:37 Gentamicin Sulfate (Gentamicin vial) 300 mg Q12HR@10,22 INH 03/20/20 22:00 03/27/20 21:59 03/22/20 09:41 Heparin Sodium (Porcine) (Heparin 5000 units/ml) 5,000 units EVERY 12 HOURS SUBQ 03/15/20 21:00 04/29/20 20:59 03/22/20 09:31 Hydralazine HCl (Apresoline) 50 mg EVERY 8 HOURS GT 03/15/20 22:00 06/13/20 21:59 03/22/20 05:48 Insulin Aspart (NovoLOG) EVERY 6 HOURS SUBQ 03/18/20 00:00 06/13/20 16:29 03/21/20 18:13 Insulin Detemir (Levemir) 20 units BID SUBQ 03/18/20 09:00 06/16/20 08:59 03/22/20 09:32 Magnesium Hydroxide (Mom) 30 ml BEDTIME PRN GT Constipation 03/15/20 16:00 04/14/20 15:59 Metoprolol Tartrate (Lopressor) 25 mg EVERY 12 HOURS GT 03/15/20 21:00 06/13/20 20:59 03/22/20 09:36 Piperacillin Sod/ Tazobactam Sod 3.375 gm/Sodium Chloride 110 ml @ 27.5 mls/hr EVERY 8 HOURS IVPB 03/15/20 22:00 03/24/20 23:59 03/22/20 05:40 Saccharomyces Boulardii (Florastor) 250 mg TWICE A DAY GT 03/15/20 18:00 06/13/20 17:59 03/22/20 09:42 Sodium Phosphate (Fleet's Sodium Phosl Enema) 133 ml DAILYPRN PRN RECTAL Constipation 03/15/20 16:00 04/14/20 15:59 Tamsulosin HCl (Flomax) 0.4 mg BEDTIME ORAL 03/15/20 21:00 04/14/20 20:59 03/21/20 20:35 Zinc Oxide (Zinc Oxide) 1 applic THREE TIMES A DAY TOPIC 03/15/20 18:00 06/13/20 17:59 03/22/20 09:33 Assessment/Plan Assessment/Plan IMPRESSION respiratory failure chronic osteomyelitis leukocytosis anemia trach GT chronic encephalopathy PLAN IV antibiotics reviewed reviewed cultures care noted and discussed respiratory care as is may try off vent as prior- was on trach collar monitor oxygen needs and ataper wound care as is and position change feeds and monitor residuals off load and wound care monitor HH transfuse PRN monitor wbc and proceed with dc if cleared by ID - near baseline impression, plan, and exam edited and reviewed in detail care discussed with Silver Correa MD Mar 22, 2020 09:44
--- NOTE | 2020-03-22 11:04 | General Progress Note ---
Subjective ROS Limited/Unobtainable: No Constitutional: Reports: no symptoms HEENT: Reports: no symptoms Cardiovascular: Reports: no symptoms Respiratory: Reports: shortness of breath, sputum Gastrointestinal/Abdominal: Reports: difficulty swallowing Genitourinary: Reports: no symptoms Neurologic/Psychiatric: Reports: pre-existing deficit Endocrine: Reports: no symptoms Hematologic/Lymphatic: Reports: anemia Allergies: Coded Allergies: No Known Allergies (Unverified , 02/11/13) All Systems: reviewed and negative except above Subjective no events. stable on the vent. on iv and inhaled abx. no fevers or chills. no bleeding. poorly responsive, no distress. tolerating feeds ct show healing decub. tolerating feeds. wbc stable. nonverbal Objective Last 24 Hour Vital Signs Date Time Temp Pulse Resp B/P (MAP) Pulse Ox O2 Delivery O2 Flow Rate FiO2 03/22/20 09:37 82 143/68 03/22/20 09:36 82 143/68 03/22/20 09:00 82 03/22/20 08:00 97.9 78 18 143/68 (93) 99 03/22/20 05:48 129/67 03/22/20 04:00 40 03/22/20 04:00 65 03/22/20 04:00 98.4 61 16 112/60 (77) 100 03/22/20 04:00 Mechanical Ventilator 03/22/20 02:35 70 16 40 03/22/20 00:00 Mechanical Ventilator 03/22/20 00:00 98.6 76 16 117/67 (84) 100 03/21/20 23:33 72 03/21/20 22:37 76 16 100 Mechanical Ventilator 40 81 16 40 03/21/20 21:39 117/61 03/21/20 20:34 84 147/78 03/21/20 20:00 40 03/21/20 20:00 99.0 84 16 147/78 (101) 100 03/21/20 20:00 Mechanical Ventilator 03/21/20 19:52 80 03/21/20 18:57 82 16 40 03/21/20 16:00 98.8 87 16 148/79 (102) 100 03/21/20 16:00 40 03/21/20 16:00 77 03/21/20 16:00 Mechanical Ventilator 03/21/20 15:55 141/70 03/21/20 15:04 93 16 40 03/21/20 12:00 98.4 82 18 141/70 (93) 100 03/21/20 12:00 Mechanical Ventilator 03/21/20 12:00 40 03/21/20 11:47 86 03/21/20 11:04 82 16 40 Intake and Output 03/21/20 03/22/20 19:00 07:00 Intake Total 745 ml 1007.5 ml Output Total 1100 ml Balance -355 ml 1007.5 ml Free Water 250 ml 330 ml IV Total 137.5 ml Tube Feeding 495 ml 540 ml Output Urine Total 1100 ml # Bowel Movements 1 Laboratory Tests 03/21/20 23:19: POC Whole Blood Glucose 122H 03/22/20 05:56: POC Whole Blood Glucose 105 Height (Feet): 5 Height (Inches): 10.00 Weight (Pounds): 207 Objective General Appearance: WD/WN, lethargic, confused EENT: PERRL/EOMI, normal ENT inspection Neck: normal alignment Cardiovascular: normal rate, regular rhythm Respiratory/Chest: chest wall non-tender, lungs clear, normal breath sounds, no respiratory distress Abdomen: normal bowel sounds, non tender, soft, no organomegaly Edema: no edema noted Arm (L), no edema noted Arm (R) Neurologic: disoriented, unresponsive, aphasia Lymphatic: normal anterior cervical (L), normal anterior cervical (R) Assessment/Plan Problem List: (1) Anemia ICD Codes: D64.9 - Anemia, unspecified SNOMED: 891810261 (2) Decubital ulcer ICD Codes: L89.90 - Pressure ulcer of unspecified site, unspecified stage SNOMED: 857659290 (3) Leukocytosis ICD Codes: D72.829 - Elevated white blood cell count, unspecified SNOMED: 500531192 (4) UTI (urinary tract infection) ICD Codes: N39.0 - Urinary tract infection, site not specified SNOMED: 20778486 (5) Pneumonia ICD Codes: J18.9 - Pneumonia, unspecified organism SNOMED: 768262084 (6) Urinary retention ICD Codes: R33.9 - Retention of urine, unspecified SNOMED: 265906279 (7) Pneumonia ICD Codes: J18.9 - Pneumonia, unspecified organism SNOMED: 004705763 (8) Encephalopathy chronic ICD Codes: G93.49 - Encephalopathy chronic SNOMED: 47534877 (9) Diabetes mellitus out of control ICD Codes: E11.9 - Diabetes mellitus out of control SNOMED: 969354204 (10) BPH (benign prostatic hyperplasia) ICD Codes: N40.0 - Benign prostatic hyperplasia without lower urinary tract symptoms SNOMED: 298273482 (11) Stage 4 skin ulcer of sacral region ICD Codes: L98.429 - Non-pressure chronic ulcer of back with unspecified severity SNOMED: 89700338, 423093546 (12) Septicemia (13) Urosepsis Status: stable Assessment/Plan: cont iv/inhaled abx vent support wean as able suctioning resp rx wound care turn q2 gt feeds monitor residuals monitor labs insulin coverage epo and iron monitor labs turn q2 Jeremiah Perkins MD Mar 22, 2020 11:04
[2020-03-22 12:00] VITALS: BP 132/69
--- NOTE | 2020-03-22 12:26 | Infectious Diseases Prog Note ---
"Assessment/Plan Assessment/Plan 1. Streptococcus | fungal UTI 2. Pseudomonas& Proteus pneumonia 3. Ventilator dependent respiratory failure 4. Diabetes mellitus 5. Hypertension 6. COPD P 1. Continue Zosyn X 2 days 2. continue inhaled gentamicin 3. will follow up cultures Subjective ROS Limited/Unobtainable: Yes Constitutional: Denies: fever Allergies: Coded Allergies: No Known Allergies (Unverified , 02/11/13) Objective Last 24 Hour Vital Signs Date Time Temp Pulse Resp B/P (MAP) Pulse Ox O2 Delivery O2 Flow Rate FiO2 03/22/20 09:37 82 143/68 03/22/20 09:36 82 143/68 03/22/20 09:00 82 03/22/20 08:00 Mechanical Ventilator 03/22/20 08:00 40 03/22/20 08:00 97.9 78 18 143/68 (93) 99 03/22/20 05:48 129/67 03/22/20 04:00 40 03/22/20 04:00 65 03/22/20 04:00 98.4 61 16 112/60 (77) 100 03/22/20 04:00 Mechanical Ventilator 03/22/20 02:35 70 16 40 03/22/20 00:00 Mechanical Ventilator 03/22/20 00:00 98.6 76 16 117/67 (84) 100 03/21/20 23:33 72 03/21/20 22:37 76 16 100 Mechanical Ventilator 40 81 16 40 03/21/20 21:39 117/61 03/21/20 20:34 84 147/78 03/21/20 20:00 40 03/21/20 20:00 99.0 84 16 147/78 (101) 100 03/21/20 20:00 Mechanical Ventilator 03/21/20 19:52 80 03/21/20 18:57 82 16 40 03/21/20 16:00 98.8 87 16 148/79 (102) 100 03/21/20 16:00 40 03/21/20 16:00 77 03/21/20 16:00 Mechanical Ventilator 03/21/20 15:55 141/70 03/21/20 15:04 93 16 40 Height (Feet): 5 Height (Inches): 10.00 Weight (Pounds): 207 HEENT: status post trach Respiratory/Chest: lungs clear, other - on ventilator Cardiovascular: normal rate Abdomen: soft, non tender, other - Ventral hernia, GT feeding Extremities: other - hands edema Neurologic/Psychiatric: unresponsiveness, aphasia Laboratory Tests Test 03/21/20 23:19 03/22/20 05:56 POC Whole Blood Glucose 122 MG/DL (74-106) H 105 MG/DL (74-106) Current Medications Medications (Trade) Dose Ordered Sig/Magda Route PRN Reason Start Time Stop Time Status Last Admin Dose Admin Acetaminophen (Tylenol) 650 mg DAILY PRN ORAL pain mgt 03/15/20 16:00 04/14/20 15:59 03/15/20 20:15 Amlodipine Besylate (Norvasc) 5 mg DAILY GT 03/20/20 09:00 04/19/20 08:59 03/22/20 09:37 Ascorbic Acid (Vitamin C) 500 mg DAILY GT 03/16/20 09:00 04/15/20 08:59 03/22/20 09:30 Bisacodyl (Dulcolax) 10 mg DAILY PRN RECTAL Constipation 03/15/20 16:00 06/13/20 15:59 Calcium Carbonate (Calcium Carbonate) 650 mg DAILY GT 03/16/20 09:00 06/14/20 08:59 03/22/20 09:31 Chlorhexidine Gluconate (Ingris-Hex 2%) 1 applic DAILY@1999 TOPIC 03/16/20 20:00 06/14/20 19:59 03/21/20 20:00 Clonidine HCl (Catapres Tab) 0.1 mg Q6H PRN GT HTN SBP > 160 03/15/20 16:00 06/13/20 15:59 Dextrose (Dextrose 50%) 25 ml Q30M PRN IV Hypoglycemia 03/15/20 16:00 06/13/20 15:59 Dextrose (Dextrose 50%) 50 ml Q30M PRN IV Hypoglycemia 03/15/20 16:00 06/13/20 15:59 03/18/20 05:04 Docusate Sodium (Colace) 100 mg TWICE A DAY GT 03/16/20 09:00 04/15/20 08:59 03/22/20 09:30 Doxazosin Mesylate (Cardura) 2 mg BEDTIME GT 03/15/20 21:00 04/14/20 20:59 03/21/20 20:34 Epoetin Anson (Epoetin Anson-EPBX(NON ESRD)) 2,000 unit MON-MON-MON SUBQ 03/20/20 21:00 06/18/20 20:59 03/20/20 21:01 Epoetin Anson (Epoetin Anson-EPBX(NON ESRD)) 3,000 unit MON- SUBQ 03/20/20 21:00 06/18/20 20:59 03/20/20 21:01 Finasteride (Proscar) 5 mg DAILY ORAL 03/16/20 09:00 06/14/20 08:59 03/22/20 09:37 Gentamicin Sulfate (Gentamicin vial) 300 mg Q12HR@, INH 03/20/20 22:00 03/27/20 21:59 03/22/20 09:41 Heparin Sodium (Porcine) (Heparin 5000 units/ml) 5,000 units EVERY 12 HOURS SUBQ 03/15/20 21:00 04/29/20 20:59 03/22/20 09:31 Hydralazine HCl (Apresoline) 50 mg EVERY 8 HOURS GT 03/15/20 22:00 06/13/20 21:59 03/22/20 05:48 Insulin Aspart (NovoLOG) EVERY 6 HOURS SUBQ 03/18/20 00:00 06/13/20 16:29 03/21/20 18:13 Insulin Detemir (Levemir) 20 units BID SUBQ 03/18/20 09:00 06/16/20 08:59 03/22/20 09:32 Magnesium Hydroxide (Mom) 30 ml BEDTIME PRN GT Constipation 03/15/20 16:00 04/14/20 15:59 Metoprolol Tartrate (Lopressor) 25 mg EVERY 12 HOURS GT 03/15/20 21:00 06/13/20 20:59 03/22/20 09:36 Piperacillin Sod/ Tazobactam Sod 3.375 gm/Sodium Chloride 110 ml @ 27.5 mls/hr EVERY 8 HOURS IVPB 03/15/20 22:00 03/24/20 23:59 03/22/20 05:40 Saccharomyces Boulardii (Florastor) 250 mg TWICE A DAY GT 03/15/20 18:00 06/13/20 17:59 03/22/20 09:42 Sodium Phosphate (Fleet's Sodium Phosl Enema) 133 ml DAILYPRN PRN RECTAL Constipation 03/15/20 16:00 04/14/20 15:59 Tamsulosin HCl (Flomax) 0.4 mg BEDTIME ORAL 03/15/20 21:00 04/14/20 20:59 03/21/20 20:35 Zinc Oxide (Zinc Oxide) 1 applic THREE TIMES A DAY TOPIC 03/15/20 18:00 06/13/20 17:59 03/22/20 09:33 Kuldip Rosado MD Mar 22, 2020 12:26"
[2020-03-22 16:00] VITALS: BP 131/70
--- NOTE | 2020-03-22 16:32 | Cardiology Progress Note ---
Subjective DATE OF SERVICE: Mar 22, 2020 On vent support via trach - Tcollar being considered. BP trend remains stable Urine culture + yeast Monitor: sinus WBC count improving Objective Last 24 Hour Vital Signs Date Time Temp Pulse Resp B/P (MAP) Pulse Ox O2 Delivery O2 Flow Rate FiO2 03/22/20 16:00 98.2 69 19 131/70 (90) 97 03/22/20 16:00 40 03/22/20 15:00 6 16 40 03/22/20 14:30 132/69 03/22/20 12:00 40 03/22/20 12:00 60 03/22/20 12:00 Mechanical Ventilator 03/22/20 12:00 98.0 91 20 132/69 (90) 97 03/22/20 11:14 86 16 40 03/22/20 09:37 82 143/68 03/22/20 09:36 82 143/68 03/22/20 09:00 82 03/22/20 08:00 Mechanical Ventilator 03/22/20 08:00 40 03/22/20 08:00 97.9 78 18 143/68 (93) 99 03/22/20 07:22 86 16 40 03/22/20 05:48 129/67 03/22/20 04:00 40 03/22/20 04:00 65 03/22/20 04:00 98.4 61 16 112/60 (77) 100 03/22/20 04:00 Mechanical Ventilator 03/22/20 02:35 70 16 40 03/22/20 00:00 Mechanical Ventilator 03/22/20 00:00 98.6 76 16 117/67 (84) 100 03/21/20 23:33 72 03/21/20 22:37 76 16 100 Mechanical Ventilator 40 81 16 40 03/21/20 21:39 117/61 03/21/20 20:34 84 147/78 03/21/20 20:00 40 03/21/20 20:00 99.0 84 16 147/78 (101) 100 03/21/20 20:00 Mechanical Ventilator 03/21/20 19:52 80 03/21/20 18:57 82 16 40 ROS: no change from my dictation of 03/15/20 HEENT: Mechanically Ventilated, Thick Trach secretions RHYTHM: NSR LUNGS: bilateral rhonchi CARDIAC: regular rhythm, normal S1 and S2, rapid rate, tachycardia ABDOMEN: non tender, soft, no organomegaly, G-Tube intact EXTREMITIES: non-tender, No edema, other - sacral decub; Neuro unresponsive Laboratory Tests Test 03/21/20 23:19 03/22/20 05:56 POC Whole Blood Glucose 122 MG/DL (74-106) H 105 MG/DL (74-106) Assessment/Plan Assessment/Plan Severe sepsis Fungal cystitis Respiratory failure with trach Chronic encephalopathy HC assoc PNA Hypertension/HHC now with stable BP trend Acute/chronic diastolic CHF Anemia Dysphagia with GTube Dehydration/hypernatremia Anti-fungal therapy Vent Resp Rx Trend BNP; adjust fluids accordingly - adjust free water by Gtube DVT prophyl Nutritional support by Gtube BP better stabilized on decreased amlodipine dose, but can readvance if trends u pward. Brady Burks MD Mar 22, 2020 16:32
--- NOTE | 2020-03-22 17:39 | General Progress Note ---
Subjective Allergies: Coded Allergies: No Known Allergies (Unverified , 02/11/13) Subjective calm unresponsive on TF Less GT site leak Objective Last 24 Hour Vital Signs Date Time Temp Pulse Resp B/P (MAP) Pulse Ox O2 Delivery O2 Flow Rate FiO2 03/22/20 16:00 Mechanical Ventilator 03/22/20 16:00 98.2 69 19 131/70 (90) 97 03/22/20 16:00 40 03/22/20 15:29 66 03/22/20 15:00 6 16 40 03/22/20 14:30 132/69 03/22/20 12:00 40 03/22/20 12:00 60 03/22/20 12:00 Mechanical Ventilator 03/22/20 12:00 98.0 91 20 132/69 (90) 97 03/22/20 11:14 86 16 40 03/22/20 09:37 82 143/68 03/22/20 09:36 82 143/68 03/22/20 09:00 82 03/22/20 08:00 Mechanical Ventilator 03/22/20 08:00 40 03/22/20 08:00 97.9 78 18 143/68 (93) 99 03/22/20 07:22 86 16 40 03/22/20 05:48 129/67 03/22/20 04:00 40 03/22/20 04:00 65 03/22/20 04:00 98.4 61 16 112/60 (77) 100 03/22/20 04:00 Mechanical Ventilator 03/22/20 02:35 70 16 40 03/22/20 00:00 Mechanical Ventilator 03/22/20 00:00 98.6 76 16 117/67 (84) 100 03/21/20 23:33 72 03/21/20 22:37 76 16 100 Mechanical Ventilator 40 81 16 40 03/21/20 21:39 117/61 03/21/20 20:34 84 147/78 03/21/20 20:00 40 03/21/20 20:00 99.0 84 16 147/78 (101) 100 03/21/20 20:00 Mechanical Ventilator 03/21/20 19:52 80 03/21/20 18:57 82 16 40 Intake and Output 03/21/20 03/22/20 19:00 07:00 Intake Total 745 ml 1007.5 ml Output Total 1100 ml Balance -355 ml 1007.5 ml Free Water 250 ml 330 ml IV Total 137.5 ml Tube Feeding 495 ml 540 ml Output Urine Total 1100 ml # Bowel Movements 1 Laboratory Tests 03/21/20 23:19: POC Whole Blood Glucose 122H 03/22/20 05:56: POC Whole Blood Glucose 105 Height (Feet): 5 Height (Inches): 10.00 Weight (Pounds): 207 Objective Elderly man NCAT supple CTA RR abd distended, (+) abd wall hernia (+) GT with some GT site acid dermatitis, improved no edema Assessment/Plan Status: stable Assessment/Plan: Assessment - Anoxic encephalopathy - dysphagia / s/p GT - GT site acid dermatitis - improving - Resp failure, s/p trach - CVA - HTN - DM - Leukocytosis, sepsis - Osteo - Poor px Recommendations - s/p GT change - GT feeds - Monitor GT for leaking - GT dressing changed to TID - GT site care - Elevate HOB - x Rose Carranza MD Mar 22, 2020 17:39
[2020-03-22 20:00] VITALS: BP 132/69
[2020-03-22] MEDS: Doxazosin 1mg Tab GT SCH (20:09)
[2020-03-22] MEDS: Tamsulosin 0.4mg cap ORAL SCH (20:09)
[2020-03-22] MEDS: Dyna-Hex 2% Top Sol 2oz TOPIC SCH (20:09)
[2020-03-22] MEDS ORDERED: NS 275ml ONE ×2 (20:56→21:20)
[2020-03-22] MEDS ORDERED: Tubing IV Secondary IV ONE (20:56)
[2020-03-23] VITALS: BP 112/66
[2020-03-23 04:00] VITALS: BP 127/68
[2020-03-23] MEDS: HydrALAZINE 50mg tab GT SCH ×3 (05:20→22:14)
[2020-03-23] MEDS: Piperacillin/Tazobactam 3.375 GM in NS 110 ML IVPB SCH ×3 (05:21→22:14)
[2020-03-23 05:31] LABS: BASOPHILS % (AUTO) 0.8 % (0.0-2.0); EOSINOPHILS % (AUTO) 3.8 % (0.0-3.0); HEMATOCRIT 30.6 % (42.0-52.0); HEMOGLOBIN 9.5 G/DL (14.2-18.0); LYMPHOCYTES % (AUTO) 19.6 % (20.0-45.0); MEAN CORPUSCULAR VOLUME 84 FL (80-99); MONOCYTES % (AUTO) 8.3 % (1.0-10.0); NEUTROPHILS % (AUTO) 67.4 % (45.0-75.0); PLATELET COUNT 602 K/UL (150-450); RED BLOOD COUNT 3.65 M/UL (4.70-6.10); WHITE BLOOD COUNT 17.7 K/UL (4.8-10.8)
[2020-03-23 05:54] LABS: ALANINE AMINOTRANSFERASE 27 U/L (12-78); ALBUMIN 2.5 G/DL (3.4-5.0); ALBUMIN/GLOBULIN RATIO 0.5 (1.0-2.7); ALKALINE PHOSPHATASE 85 U/L (46-116); ANION GAP 9 mmol/L (5-15); ASPARTATE AMINO TRANSFERASE 16 U/L (15-37); BILIRUBIN,TOTAL 0.3 MG/DL (0.2-1.0); BLOOD UREA NITROGEN 22 mg/dL (7-18); CALCIUM 9.2 MG/DL (8.5-10.1); CARBON DIOXIDE 28 MMOL/L (21-32); CHLORIDE 112 MMOL/L (98-107); POTASSIUM 3.8 MMOL/L (3.5-5.1); SODIUM 149 MMOL/L (136-145)
[2020-03-23] MEDS: NovoLOG Insulin Flexpen SUBQ SCH ×4 (06:00→23:18)
[2020-03-23 08:00] VITALS: BP 117/64
--- NOTE | 2020-03-23 08:18 | General Progress Note ---
Subjective ROS Limited/Unobtainable: Yes Constitutional: Reports: malaise, weakness HEENT: Reports: no symptoms Cardiovascular: Reports: no symptoms Respiratory: Reports: cough, shortness of breath, sputum Gastrointestinal/Abdominal: Reports: difficulty swallowing Genitourinary: Reports: no symptoms Neurologic/Psychiatric: Reports: pre-existing deficit Endocrine: Reports: no symptoms Hematologic/Lymphatic: Reports: anemia Allergies: Coded Allergies: No Known Allergies (Unverified , 02/11/13) All Systems: reviewed and negative except above Subjective no changes. stable on the vent. no fever or chills. no sob. tolerating feeds. BS stable. Na elevated. nonverbal and unresponsive at baseline. remains on iv abx. WBC still high Objective Last 24 Hour Vital Signs Date Time Temp Pulse Resp B/P (MAP) Pulse Ox O2 Delivery O2 Flow Rate FiO2 03/23/20 06:49 56 16 40 03/23/20 05:20 143/77 03/23/20 04:00 Mechanical Ventilator 03/23/20 04:00 40 03/23/20 04:00 74 03/23/20 04:00 97.9 75 19 127/68 (87) 97 03/23/20 03:02 72 16 40 03/23/20 00:00 73 03/23/20 00:00 40 03/23/20 00:00 97.9 72 19 112/66 (81) 97 03/23/20 00:00 Mechanical Ventilator 03/22/20 22:43 76 16 100 Mechanical Ventilator 40 79 16 40 03/22/20 21:27 125/65 03/22/20 20:54 83 136/67 03/22/20 20:00 Mechanical Ventilator 03/22/20 20:00 40 03/22/20 20:00 98.2 79 19 132/69 (90) 97 03/22/20 19:35 73 03/22/20 18:35 75 16 40 03/22/20 16:00 Mechanical Ventilator 03/22/20 16:00 98.2 69 19 131/70 (90) 97 03/22/20 16:00 40 03/22/20 15:29 66 03/22/20 15:00 6 16 40 03/22/20 14:30 132/69 03/22/20 12:00 40 03/22/20 12:00 60 03/22/20 12:00 Mechanical Ventilator 03/22/20 12:00 98.0 91 20 132/69 (90) 97 03/22/20 11:14 86 16 40 03/22/20 09:37 82 143/68 03/22/20 09:36 82 143/68 03/22/20 09:00 82 Intake and Output 03/22/20 03/23/20 19:00 07:00 Intake Total 845 ml 1007.5 ml Output Total 600 ml 1000 ml Balance 245 ml 7.5 ml Free Water 350 ml 330 ml IV Total 137.5 ml Tube Feeding 495 ml 540 ml Output Urine Total 600 ml 1000 ml Laboratory Tests 03/22/20 23:19: POC Whole Blood Glucose 135H 03/23/20 03:00: White Blood Count 17.7H, Red Blood Count 3.65L, Hemoglobin 9.5L, Hematocrit 30.6L, Mean Corpuscular Volume 84, Mean Corpuscular Hemoglobin 26.1L, Mean Corpuscular Hemoglobin Concent 31.0L, Red Cell Distribution Width 18.0H, Platelet Count 602H, Mean Platelet Volume 8.2, Neutrophils (%) (Auto) 67.4, Lymphocytes (%) (Auto) 19.6L, Monocytes (%) (Auto) 8.3, Eosinophils (%) (Auto) 3.8H, Basophils (%) (Auto) 0.8, Sodium Level 149H, Potassium Level 3.8, Chloride Level 112H, Carbon Dioxide Level 28, Anion Gap 9, Blood Urea Nitrogen 22H, Creatinine 1.0, Estimat Glomerular Filtration Rate > 60, Glucose Level 131H, Calcium Level 9.2, Total Bilirubin 0.3, Aspartate Amino Transf (AST/SGOT) 16, Alanine Aminotransferase (ALT/SGPT) 27, Alkaline Phosphatase 85, Total Protein 7.8, Albumin 2.5L, Globulin 5.3, Albumin/Globulin Ratio 0.5L 03/23/20 06:08: POC Whole Blood Glucose 125H Height (Feet): 5 Height (Inches): 10.00 Weight (Pounds): 207 Objective General Appearance: WD/WN, lethargic, confused EENT: PERRL/EOMI, normal ENT inspection Neck: normal alignment Cardiovascular: normal rate, regular rhythm Respiratory/Chest: chest wall non-tender, lungs clear, normal breath sounds, no respiratory distress Abdomen: normal bowel sounds, non tender, soft, no organomegaly Edema: no edema noted Arm (L), no edema noted Arm (R) Neurologic: disoriented, unresponsive, aphasia Lymphatic: normal anterior cervical (L), normal anterior cervical (R) Assessment/Plan Problem List: (1) Anemia ICD Codes: D64.9 - Anemia, unspecified SNOMED: 721299641 (2) Decubital ulcer ICD Codes: L89.90 - Pressure ulcer of unspecified site, unspecified stage SNOMED: 238942876 (3) Leukocytosis ICD Codes: D72.829 - Elevated white blood cell count, unspecified SNOMED: 806237800 (4) UTI (urinary tract infection) ICD Codes: N39.0 - Urinary tract infection, site not specified SNOMED: 70150992 (5) Pneumonia ICD Codes: J18.9 - Pneumonia, unspecified organism SNOMED: 479807944 (6) Urinary retention ICD Codes: R33.9 - Retention of urine, unspecified SNOMED: 208634065 (7) Pneumonia ICD Codes: J18.9 - Pneumonia, unspecified organism SNOMED: 985341222 (8) Encephalopathy chronic ICD Codes: G93.49 - Encephalopathy chronic SNOMED: 87458801 (9) Diabetes mellitus out of control ICD Codes: E11.9 - Diabetes mellitus out of control SNOMED: 658166172 (10) BPH (benign prostatic hyperplasia) ICD Codes: N40.0 - Benign prostatic hyperplasia without lower urinary tract symptoms SNOMED: 504033163 (11) Stage 4 skin ulcer of sacral region ICD Codes: L98.429 - Non-pressure chronic ulcer of back with unspecified johnnie rity SNOMED: 29520346, 923717122 (12) Septicemia (13) Urosepsis Status: stable Assessment/Plan: cont iv/inhaled abx vent support wean as able suctioning resp rx wound care turn q2 gt feeds monitor residuals increase water flushes monitor labs insulin coverage epo and iron monitor labs turn q2 Jeremiah Perkins MD Mar 23, 2020 08:18
[2020-03-23] MEDS: Docusate 100mg/10ml Liq GT SCH ×2 (08:49→18:05)
[2020-03-23] MEDS: Calcium Carbonate 650mg Tab GT SCH (08:50)
[2020-03-23] MEDS: Zinc Oxide Oint 2oz TOPIC SCH ×3 (08:51→18:09)
[2020-03-23] MEDS: Levemir Flexpen SUBQ SCH ×2 (08:58→18:08)
[2020-03-23] MEDS: Heparin 5000 units/ml inj SUBQ SCH ×2 (09:01→20:24)
[2020-03-23] MEDS: Ascorbic Acid 500mg tab GT SCH (09:02)
--- NOTE | 2020-03-23 10:25 | Pulmonology Progress Note ---
Subjective ROS Limited/Unobtainable: No Constitutional: Denies: fever Allergies: Coded Allergies: No Known Allergies (Unverified , 02/11/13) All Systems: reviewed and negative except above Objective Last 24 Hour Vital Signs Date Time Temp Pulse Resp B/P (MAP) Pulse Ox O2 Delivery O2 Flow Rate FiO2 03/23/20 09:03 80 117/64 03/23/20 09:03 80 117/64 03/23/20 08:00 52 03/23/20 08:00 40 03/23/20 08:00 97.2 57 18 117/64 (81) 100 03/23/20 06:49 56 16 40 03/23/20 05:20 143/77 03/23/20 04:00 Mechanical Ventilator 03/23/20 04:00 40 03/23/20 04:00 74 03/23/20 04:00 97.9 75 19 127/68 (87) 97 03/23/20 03:02 72 16 40 03/23/20 00:00 73 03/23/20 00:00 40 03/23/20 00:00 97.9 72 19 112/66 (81) 97 03/23/20 00:00 Mechanical Ventilator 03/22/20 22:43 76 16 100 Mechanical Ventilator 40 79 16 40 03/22/20 21:27 125/65 03/22/20 20:54 83 136/67 03/22/20 20:00 Mechanical Ventilator 03/22/20 20:00 40 03/22/20 20:00 98.2 79 19 132/69 (90) 97 03/22/20 19:35 73 03/22/20 18:35 75 16 40 03/22/20 16:00 Mechanical Ventilator 03/22/20 16:00 98.2 69 19 131/70 (90) 97 03/22/20 16:00 40 03/22/20 15:29 66 03/22/20 15:00 6 16 40 03/22/20 14:30 132/69 03/22/20 12:00 40 03/22/20 12:00 60 03/22/20 12:00 Mechanical Ventilator 03/22/20 12:00 98.0 91 20 132/69 (90) 97 03/22/20 11:14 86 16 40 Intake and Output 03/22/20 03/23/20 19:00 07:00 Intake Total 845 ml 1007.5 ml Output Total 600 ml 1000 ml Balance 245 ml 7.5 ml Free Water 350 ml 330 ml IV Total 137.5 ml Tube Feeding 495 ml 540 ml Output Urine Total 600 ml 1000 ml Laboratory Tests 03/22/20 23:19: POC Whole Blood Glucose 135H 03/23/20 03:00: White Blood Count 17.7H, Red Blood Count 3.65L, Hemoglobin 9.5L, Hematocrit 30.6L, Mean Corpuscular Volume 84, Mean Corpuscular Hemoglobin 26.1L, Mean Corpuscular Hemoglobin Concent 31.0L, Red Cell Distribution Width 18.0H, Platelet Count 602H, Mean Platelet Volume 8.2, Neutrophils (%) (Auto) 67.4, Lymphocytes (%) (Auto) 19.6L, Monocytes (%) (Auto) 8.3, Eosinophils (%) (Auto) 3.8H, Basophils (%) (Auto) 0.8, Sodium Level 149H, Potassium Level 3.8, Chloride Level 112H, Carbon Dioxide Level 28, Anion Gap 9, Blood Urea Nitrogen 22H, Creatinine 1.0, Estimat Glomerular Filtration Rate > 60, Glucose Level 131H, C alcium Level 9.2, Total Bilirubin 0.3, Aspartate Amino Transf (AST/SGOT) 16, Alanine Aminotransferase (ALT/SGPT) 27, Alkaline Phosphatase 85, Total Protein 7.8, Albumin 2.5L, Globulin 5.3, Albumin/Globulin Ratio 0.5L 03/23/20 06:08: POC Whole Blood Glucose 125H Current Medications Medications (Trade) Dose Ordered Sig/Magda Route PRN Reason Start Time Stop Time Status Last Admin Dose Admin Acetaminophen (Tylenol) 650 mg DAILY PRN ORAL pain mgt 03/15/20 16:00 04/14/20 15:59 03/15/20 20:15 Amlodipine Besylate (Norvasc) 5 mg DAILY GT 03/20/20 09:00 04/19/20 08:59 03/23/20 09:03 Ascorbic Acid (Vitamin C) 500 mg DAILY GT 03/16/20 09:00 04/15/20 08:59 03/23/20 09:02 Bisacodyl (Dulcolax) 10 mg DAILY PRN RECTAL Constipation 03/15/20 16:00 06/13/20 15:59 Calcium Carbonate (Calcium Carbonate) 650 mg DAILY GT 03/16/20 09:00 06/14/20 08:59 03/23/20 08:50 Chlorhexidine Gluconate (Ingris-Hex 2%) 1 applic DAILY@1999 TOPIC 03/16/20 20:00 06/14/20 19:59 03/22/20 20:09 Clonidine HCl (Catapres Tab) 0.1 mg Q6H PRN GT HTN SBP > 160 03/15/20 16:00 06/13/20 15:59 Dextrose (Dextrose 50%) 25 ml Q30M PRN IV Hypoglycemia 03/15/20 16:00 06/13/20 15:59 Dextrose (Dextrose 50%) 50 ml Q30M PRN IV Hypoglycemia 03/15/20 16:00 06/13/20 15:59 03/18/20 05:04 Docusate Sodium (Colace) 100 mg TWICE A DAY GT 03/16/20 09:00 04/15/20 08:59 03/23/20 08:49 Doxazosin Mesylate (Cardura) 2 mg BEDTIME GT 03/15/20 21:00 04/14/20 20:59 03/22/20 20:09 Epoetin Anson (Epoetin Anson-EPBX(NON ESRD)) 2,000 unit MON-MON-MON SUBQ 03/20/20 21:00 06/18/20 20:59 03/20/20 21:01 Epoetin Anson (Epoetin Anson-EPBX(NON ESRD)) 3,000 unit MON-MON-MON SUBQ 03/20/20 21:00 06/18/20 20:59 03/20/20 21:01 Finasteride (Proscar) 5 mg DAILY ORAL 03/16/20 09:00 06/14/20 08:59 03/23/20 09:04 Gentamicin Sulfate (Gentamicin vial) 300 mg Q12HR@ INH 03/20/20 22:00 03/27/20 21:59 03/22/20 22:42 Heparin Sodium (Porcine) (Heparin 5000 units/ml) 5,000 units EVERY 12 HOURS SUBQ 03/15/20 21:00 04/29/20 20:59 03/23/20 09:01 Hydralazine HCl (Apresoline) 50 mg EVERY 8 HOURS GT 03/15/20 22:00 06/13/20 21:59 03/23/20 05:20 Insulin Aspart (NovoLOG) EVERY 6 HOURS SUBQ 03/18/20 00:00 06/13/20 16:29 03/22/20 18:19 Insulin Detemir (Levemir) 20 units BID SUBQ 03/18/20 09:00 06/16/20 08:59 03/23/20 08:58 Magnesium Hydroxide (Mom) 30 ml BEDTIME PRN GT Constipation 03/15/20 16:00 04/14/20 15:59 Metoprolol Tartrate (Lopressor) 25 mg EVERY 12 HOURS GT 03/15/20 21:00 06/13/20 20:59 03/23/20 09:03 Piperacillin Sod/ Tazobactam Sod 3.375 gm/Sodium Chloride 110 ml @ 27.5 mls/hr EVERY 8 HOURS IVPB 03/15/20 22:00 03/24/20 23:59 03/23/20 05:21 Saccharomyces Boulardii (Florastor) 250 mg TWICE A DAY GT 03/15/20 18:00 06/13/20 17:59 03/23/20 09:04 Sodium Phosphate (Fleet's Sodium Phosl Enema) 133 ml DAILYPRN PRN RECTAL Constipation 03/15/20 16:00 04/14/20 15:59 Tamsulosin HCl (Flomax) 0.4 mg BEDTIME ORAL 03/15/20 21:00 04/14/20 20:59 03/22/20 20:09 Zinc Oxide (Zinc Oxide) 1 applic THREE TIMES A DAY TOPIC 03/15/20 18:00 06/13/20 17:59 03/23/20 08:51 Assessment/Plan Assessment/Plan Pulmonary Progress Note Subjective ROS Limited/Unobtainable: Yes Constitutional: Denies: fever Allergies: Coded Allergies: No Known Allergies (Unverified , 02/11/13) All Systems: reviewed and negative except above Subjective cultures noted all reviewed stable pulmonary status NAD Objective Vital Signs noted Objective WDWN NAD trach clear breath sounds bilaterally without rhonchi or wheeze [id number] without MRG NABS nontender no distention; gt no CCE nonfocal poor LOC krishnan Laboratory Tests noted Assessment/Plan Assessment/Plan IMPRESSION respiratory failure chronic osteomyelitis leukocytosis anemia trach GT chronic encephalopathy PLAN IV antibiotics reviewed reviewed cultures care noted and discussed respiratory care as is may try off vent as prior- was on trach collar monitor oxygen needs and ataper wound care as is and position change feeds and monitor residuals off load and wound care monitor HH transfuse PRN DC planning impression, plan, and exam edited and reviewed in detail care discussed with Brady Hernandez MD Mar 23, 2020 10:25
[2020-03-23] MEDS: Gentamicin for inhalation INH SCH ×2 (10:30→22:50)
--- NOTE | 2020-03-23 11:27 | Infectious Diseases Prog Note ---
"Assessment/Plan Assessment/Plan antibiotics : zosyn, inhaled gentamicin A 1. streptococcus | fungal UTI s/p rx 2. proteus | pseudomonas pneumonia 3. respiratory failure 4. diabetes mellitus 5. hypertension 6. COPD 7. leucocytosis improving P 1. continue zosyn 1 more day 2. continue inhaled gentamicin 3 more days 3. will follow up cultures Subjective ROS Limited/Unobtainable: Yes Allergies: Coded Allergies: No Known Allergies (Unverified , 02/11/13) Objective Last 24 Hour Vital Signs Date Time Temp Pulse Resp B/P (MAP) Pulse Ox O2 Delivery O2 Flow Rate FiO2 03/23/20 10:40 71 16 40 03/23/20 09:03 80 117/64 03/23/20 09:03 80 117/64 03/23/20 08:00 52 03/23/20 08:00 40 03/23/20 08:00 97.2 57 18 117/64 (81) 100 03/23/20 08:00 Mechanical Ventilator 03/23/20 06:49 56 16 40 03/23/20 05:20 143/77 03/23/20 04:00 Mechanical Ventilator 03/23/20 04:00 40 03/23/20 04:00 74 03/23/20 04:00 97.9 75 19 127/68 (87) 97 03/23/20 03:02 72 16 40 03/23/20 00:00 73 03/23/20 00:00 40 03/23/20 00:00 97.9 72 19 112/66 (81) 97 03/23/20 00:00 Mechanical Ventilator 03/22/20 22:43 76 16 100 Mechanical Ventilator 40 79 16 40 03/22/20 21:27 125/65 03/22/20 20:54 83 136/67 03/22/20 20:00 Mechanical Ventilator 03/22/20 20:00 40 03/22/20 20:00 98.2 79 19 132/69 (90) 97 03/22/20 19:35 73 03/22/20 18:35 75 16 40 03/22/20 16:00 Mechanical Ventilator 03/22/20 16:00 98.2 69 19 131/70 (90) 97 03/22/20 16:00 40 03/22/20 15:29 66 03/22/20 15:00 6 16 40 03/22/20 14:30 132/69 03/22/20 12:00 40 03/22/20 12:00 60 03/22/20 12:00 Mechanical Ventilator 03/22/20 12:00 98.0 91 20 132/69 (90) 97 Height (Feet): 5 Height (Inches): 10.00 Weight (Pounds): 207 HEENT: status post trach Respiratory/Chest: lungs clear Cardiovascular: normal rate, regular rhythm, no gallop/murmur Abdomen: soft, non tender, other - GT Extremities: no edema Laboratory Tests Test 03/22/20 23:19 03/23/20 03:00 03/23/20 06:08 POC Whole Blood Glucose 135 MG/DL (74-106) H 125 MG/DL (74-106) H White Blood Count 17.7 K/UL (4.8-10.8) H Red Blood Count 3.65 M/UL (4.70-6.10) L Hemoglobin 9.5 G/DL (14.2-18.0) L Hematocrit 30.6 % (42.0-52.0) L Mean Corpuscular Volume 84 FL (80-99) Mean Corpuscular Hemoglobin 26.1 PG (27.0-31.0) L Mean Corpuscular Hemoglobin Concent 31.0 G/DL (32.0-36.0) L Red Cell Distribution Width 18.0 % (11.6-14.8) H Platelet Count 602 K/UL (150-450) H Mean Platelet Volume 8.2 FL (6.5-10.1) Neutrophils (%) (Auto) 67.4 % (45.0-75.0) Lymphocytes (%) (Auto) 19.6 % (20.0-45.0) L Monocytes (%) (Auto) 8.3 % (1.0-10.0) Eosinophils (%) (Auto) 3.8 % (0.0-3.0) H Basophils (%) (Auto) 0.8 % (0.0-2.0) Sodium Level 149 MMOL/L (136-145) H Potassium Level 3.8 MMOL/L (3.5-5.1) Chloride Level 112 MMOL/L (98-107) H Carbon Dioxide Level 28 MMOL/L (21-32) Anion Gap 9 mmol/L (5-15) Blood Urea Nitrogen 22 mg/dL (7-18) H Creatinine 1.0 MG/DL (0.55-1.30) Estimat Glomerular Filtration Rate > 60 mL/min (>60) Glucose Level 131 MG/DL (74-106) H Calcium Level 9.2 MG/DL (8.5-10.1) Total Bilirubin 0.3 MG/DL (0.2-1.0) Aspartate Amino Transf (AST/SGOT) 16 U/L (15-37) Alanine Aminotransferase (ALT/SGPT) 27 U/L (12-78) Alkaline Phosphatase 85 U/L (46-116) Total Protein 7.8 G/DL (6.4-8.2) Albumin 2.5 G/DL (3.4-5.0) L Globulin 5.3 g/dL Albumin/Globulin Ratio 0.5 (1.0-2.7) L Current Medications Medications (Trade) Dose Ordered Sig/Magda Route PRN Reason Start Time Stop Time Status Last Admin Dose Admin Acetaminophen (Tylenol) 650 mg DAILY PRN ORAL pain mgt 03/15/20 16:00 04/14/20 15:59 03/15/20 20:15 Amlodipine Besylate (Norvasc) 5 mg DAILY GT 03/20/20 09:00 04/19/20 08:59 03/23/20 09:03 Ascorbic Acid (Vitamin C) 500 mg DAILY GT 03/16/20 09:00 04/15/20 08:59 03/23/20 09:02 Bisacodyl (Dulcolax) 10 mg DAILY PRN RECTAL Constipation 03/15/20 16:00 06/13/20 15:59 Calcium Carbonate (Calcium Carbonate) 650 mg DAILY GT 03/16/20 09:00 06/14/20 08:59 03/23/20 08:50 Chlorhexidine Gluconate (Ingris-Hex 2%) 1 applic DAILY@1999 TOPIC 03/16/20 20:00 06/14/20 19:59 03/22/20 20:09 Clonidine HCl (Catapres Tab) 0.1 mg Q6H PRN GT HTN SBP > 160 03/15/20 16:00 06/13/20 15:59 Dextrose (Dextrose 50%) 25 ml Q30M PRN IV Hypoglycemia 03/15/20 16:00 06/13/20 15:59 Dextrose (Dextrose 50%) 50 ml Q30M PRN IV Hypoglycemia 03/15/20 16:00 06/13/20 15:59 03/18/20 05:04 Docusate Sodium (Colace) 100 mg TWICE A DAY GT 03/16/20 09:00 04/15/20 08:59 03/23/20 08:49 Doxazosin Mesylate (Cardura) 2 mg BEDTIME GT 03/15/20 21:00 04/14/20 20:59 03/22/20 20:09 Epoetin Anson (Epoetin Anson-EPBX(NON ESRD)) 2,000 unit MON-MON-MON SUBQ 03/20/20 21:00 06/18/20 20:59 03/20/20 21:01 Epoetin Anson (Epoetin Anson-EPBX(NON ESRD)) 3,000 unit MON- SUBQ 03/20/20 21:00 06/18/20 20:59 03/20/20 21:01 Finasteride (Proscar) 5 mg DAILY ORAL 03/16/20 09:00 06/14/20 08:59 03/23/20 09:04 Gentamicin Sulfate (Gentamicin vial) 300 mg Q12HR@, INH 03/20/20 22:00 03/27/20 21:59 03/22/20 22:42 Heparin Sodium (Porcine) (Heparin 5000 units/ml) 5,000 units EVERY 12 HOURS SUBQ 03/15/20 21:00 04/29/20 20:59 03/23/20 09:01 Hydralazine HCl (Apresoline) 50 mg EVERY 8 HOURS GT 03/15/20 22:00 06/13/20 21:59 03/23/20 05:20 Insulin Aspart (NovoLOG) EVERY 6 HOURS SUBQ 03/18/20 00:00 06/13/20 16:29 03/22/20 18:19 Insulin Detemir (Levemir) 20 units BID SUBQ 03/18/20 09:00 06/16/20 08:59 03/23/20 08:58 Magnesium Hydroxide (Mom) 30 ml BEDTIME PRN GT Constipation 03/15/20 16:00 04/14/20 15:59 Metoprolol Tartrate (Lopressor) 25 mg EVERY 12 HOURS GT 03/15/20 21:00 06/13/20 20:59 03/23/20 09:03 Piperacillin Sod/ Tazobactam Sod 3.375 gm/Sodium Chloride 110 ml @ 27.5 mls/hr EVERY 8 HOURS IVPB 03/15/20 22:00 03/24/20 23:59 03/23/20 05:21 Saccharomyces Boulardii (Florastor) 250 mg TWICE A DAY GT 03/15/20 18:00 06/13/20 17:59 03/23/20 09:04 Sodium Phosphate (Fleet's Sodium Phosl Enema) 133 ml DAILYPRN PRN RECTAL Constipation 03/15/20 16:00 04/14/20 15:59 Tamsulosin HCl (Flomax) 0.4 mg BEDTIME ORAL 03/15/20 21:00 04/14/20 20:59 03/22/20 20:09 Zinc Oxide (Zinc Oxide) 1 applic THREE TIMES A DAY TOPIC 03/15/20 18:00 06/13/20 17:59 03/23/20 08:51 Jesica Alegria MD Mar 23, 2020 11:27"
[2020-03-23 12:00] VITALS: BP 120/60
[2020-03-23] MEDS ORDERED: Gentamicin for inhalation INH SCH (15:40)
[2020-03-23 16:00] VITALS: BP 122/62
[2020-03-23 20:00] VITALS: BP 130/66
[2020-03-23] MEDS: Doxazosin 1mg Tab GT SCH (20:21)
[2020-03-23] MEDS: Tamsulosin 0.4mg cap ORAL SCH (20:21)
[2020-03-23] MEDS: Dyna-Hex 2% Top Sol 2oz TOPIC SCH (20:22)
--- NOTE | 2020-03-23 20:42 | General Progress Note ---
Subjective Allergies: Coded Allergies: No Known Allergies (Unverified , 02/11/13) Subjective calm unresponsive on TF Less GT site leak Objective Last 24 Hour Vital Signs Date Time Temp Pulse Resp B/P (MAP) Pulse Ox O2 Delivery O2 Flow Rate FiO2 03/23/20 20:22 64 130/66 03/23/20 20:00 40 03/23/20 20:00 Mechanical Ventilator 03/23/20 19:46 72 16 40 03/23/20 16:00 40 03/23/20 16:00 62 03/23/20 16:00 Mechanical Ventilator 03/23/20 16:00 97.1 64 16 122/62 (82) 100 03/23/20 15:47 72 16 100 Mechanical Ventilator 40 76 16 40 03/23/20 14:55 68 16 40 03/23/20 14:39 120/60 03/23/20 12:00 97.2 67 21 120/60 (80) 100 03/23/20 12:00 Mechanical Ventilator 03/23/20 12:00 40 03/23/20 12:00 67 03/23/20 10:40 71 16 40 03/23/20 09:03 80 117/64 03/23/20 09:03 80 117/64 03/23/20 08:00 52 03/23/20 08:00 40 03/23/20 08:00 97.2 57 18 117/64 (81) 100 03/23/20 08:00 Mechanical Ventilator 03/23/20 06:49 56 16 40 03/23/20 05:20 143/77 03/23/20 04:00 Mechanical Ventilator 03/23/20 04:00 40 03/23/20 04:00 74 03/23/20 04:00 97.9 75 19 127/68 (87) 97 03/23/20 03:02 72 16 40 03/23/20 00:00 73 03/23/20 00:00 40 03/23/20 00:00 97.9 72 19 112/66 (81) 97 03/23/20 00:00 Mechanical Ventilator 03/22/20 22:43 76 16 100 Mechanical Ventilator 40 79 16 40 03/22/20 21:27 125/65 03/22/20 20:54 83 136/67 Intake and Output 03/22/20 03/23/20 19:00 07:00 Intake Total 845 ml 1007.5 ml Output Total 600 ml 1000 ml Balance 245 ml 7.5 ml Free Water 350 ml 330 ml IV Total 137.5 ml Tube Feeding 495 ml 540 ml Output Urine Total 600 ml 1000 ml Laboratory Tests 03/22/20 23:19: POC Whole Blood Glucose 135H 03/23/20 03:00: White Blood Count 17.7H, Red Blood Count 3.65L, Hemoglobin 9.5L, Hematocrit 30.6L, Mean Corpuscular Volume 84, Mean Corpuscular Hemoglobin 26.1L, Mean Corpuscular Hemoglobin Concent 31.0L, Red Cell Distribution Width 18.0H, Platelet Count 602H, Mean Platelet Volume 8.2, Neutrophils (%) (Auto) 67.4, Lymphocytes (%) (Auto) 19.6L, Monocytes (%) (Auto) 8.3, Eosinophils (%) (Auto) 3.8H, Basophils (%) (Auto) 0.8, Sodium Level 149H, Potassium Level 3.8, Chloride Level 112H, Carbon Dioxide Level 28, Anion Gap 9, Blood Urea Nitrogen 22H, Creatinine 1.0, Estimat Glomerular Filtration Rate > 60, Glucose Level 131H, Calcium Level 9.2, Total Bilirubin 0.3, Aspartate Amino Transf (AST/SGOT) 16, Alanine Aminotransferase (ALT/SGPT) 27, Alkaline Phosphatase 85, Total Protein 7.8, Albumin 2.5L, Globulin 5.3, Albumin/Globulin Ratio 0.5L 03/23/20 06:08: POC Whole Blood Glucose 125H 03/23/20 18:06: POC Whole Blood Glucose [Pending] 03/23/20 19:00: Stool Occult Blood [Pending] Height (Feet): 5 Height (Inches): 10.00 Weight (Pounds): 207 Objective Elderly man NCAT supple CTA RR abd distended, (+) abd wall hernia (+) GT with some GT site acid dermatitis, improved no edema Assessment/Plan Status: stable Assessment/Plan: Assessment - Anoxic encephalopathy - dysphagia / s/p GT - GT site acid dermatitis - improving - Resp failure, s/p trach - CVA - HTN - DM - Leukocytosis, sepsis - Osteo - Poor px Recommendations - s/p GT change - GT feeds - Monitor GT for leaking - GT dressing changed to TID - GT site care - Elevate HOB - Abx Rose Carranza MD Mar 23, 2020 20:42
[2020-03-23] MEDS: Epoetin Alfa-EPBX (NON ESRD) 3000 units/ml vial SUBQ SCH (20:50)
[2020-03-23] MEDS: Epoetin Alfa-EPBX (NON ESRD) 2000 units/ml vial SUBQ SCH (20:50)
--- NOTE | 2020-03-23 21:04 | Surgery Progress Note ---
Surgery Progress Note Subjective Additional Comments no acute events Objective Last 24 Hour Vital Signs Date Time Temp Pulse Resp B/P (MAP) Pulse Ox O2 Delivery O2 Flow Rate FiO2 03/23/20 20:22 64 130/66 03/23/20 20:00 98.7 77 16 130/66 (87) 100 03/23/20 20:00 40 03/23/20 20:00 Mechanical Ventilator 03/23/20 19:46 72 16 40 03/23/20 16:00 40 03/23/20 16:00 62 03/23/20 16:00 Mechanical Ventilator 03/23/20 16:00 97.1 64 16 122/62 (82) 100 03/23/20 15:47 72 16 100 Mechanical Ventilator 40 76 16 40 03/23/20 14:55 68 16 40 03/23/20 14:39 120/60 03/23/20 12:00 97.2 67 21 120/60 (80) 100 03/23/20 12:00 Mechanical Ventilator 03/23/20 12:00 40 03/23/20 12:00 67 03/23/20 10:40 71 16 40 03/23/20 09:03 80 117/64 03/23/20 09:03 80 117/64 03/23/20 08:00 52 03/23/20 08:00 40 03/23/20 08:00 97.2 57 18 117/64 (81) 100 03/23/20 08:00 Mechanical Ventilator 03/23/20 06:49 56 16 40 03/23/20 05:20 143/77 03/23/20 04:00 Mechanical Ventilator 03/23/20 04:00 40 03/23/20 04:00 74 03/23/20 04:00 97.9 75 19 127/68 (87) 97 03/23/20 03:02 72 16 40 03/23/20 00:00 73 03/23/20 00:00 40 03/23/20 00:00 97.9 72 19 112/66 (81) 97 03/23/20 00:00 Mechanical Ventilator 03/22/20 22:43 76 16 100 Mechanical Ventilator 40 79 16 40 03/22/20 21:27 125/65 I&O Intake and Output 03/22/20 03/23/20 19:00 07:00 Intake Total 845 ml 1007.5 ml Output Total 600 ml 1000 ml Balance 245 ml 7.5 ml Free Water 350 ml 330 ml IV Total 137.5 ml Tube Feeding 495 ml 540 ml Output Urine Total 600 ml 1000 ml Cardiovascular: RSR Respiratory: decreased breath sounds Abdomen: non-tender, present bowel sounds Extremities: no edema, no tenderness, no cyanosis Laboratory Tests Test 03/22/20 23:19 03/23/20 03:00 03/23/20 06:08 03/23/20 18:06 POC Whole Blood Glucose 135 MG/DL (74-106) H 125 MG/DL (74-106) H Pending White Blood Count 17.7 K/UL (4.8-10.8) H Red Blood Count 3.65 M/UL (4.70-6.10) L Hemoglobin 9.5 G/DL (14.2-18.0) L Hematocrit 30.6 % (42.0-52.0) L Mean Corpuscular Volume 84 FL (80-99) Mean Corpuscular Hemoglobin 26.1 PG (27.0-31.0) L Mean Corpuscular Hemoglobin Concent 31.0 G/DL (32.0-36.0) L Red Cell Distribution Width 18.0 % (11.6-14.8) H Platelet Count 602 K/UL (150-450) H Mean Platelet Volume 8.2 FL (6.5-10.1) Neutrophils (%) (Auto) 67.4 % (45.0-75.0) Lymphocytes (%) (Auto) 19.6 % (20.0-45.0) L Monocytes (%) (Auto) 8.3 % (1.0-10.0) Eosinophils (%) (Auto) 3.8 % (0.0-3.0) H Basophils (%) (Auto) 0.8 % (0.0-2.0) Sodium Level 149 MMOL/L (136-145) H Potassium Level 3.8 MMOL/L (3.5-5.1) Chloride Level 112 MMOL/L (98-107) H Carbon Dioxide Level 28 MMOL/L (21-32) Anion Gap 9 mmol/L (5-15) Blood Urea Nitrogen 22 mg/dL (7-18) H Creatinine 1.0 MG/DL (0.55-1.30) Estimat Glomerular Filtration Rate > 60 mL/min (>60) Glucose Level 131 MG/DL (74-106) H Calcium Level 9.2 MG/DL (8.5-10.1) Total Bilirubin 0.3 MG/DL (0.2-1.0) Aspartate Amino Transf (AST/SGOT) 16 U/L (15-37) Alanine Aminotransferase (ALT/SGPT) 27 U/L (12-78) Alkaline Phosphatase 85 U/L (46-116) Total Protein 7.8 G/DL (6.4-8.2) Albumin 2.5 G/DL (3.4-5.0) L Globulin 5.3 g/dL Albumin/Globulin Ratio 0.5 (1.0-2.7) L Test 03/23/20 19:00 Stool Occult Blood Pending Plan Problems: (1) Anemia (2) Decubital ulcer Assessment & Plan: Patient presented admission with a stage IV sacral decubitus ulcer and deep tissue injury wound with maceration of skin as well as into the buttock. Wound evaluated bedside with care team. Care plan and dressings applied. Thera honey initiated. Will follow with recommendations and care plan. Pt presented on admission with Tracheostomy,Erosion at GT site, Multiple Pressure injuries. Skin assessed around collar of trach and no areas of skin breakdown noted. Insertion site and Peristomal GT erythematous and macerated. Silver Nitrate x1 application applied. Full Thickness Pressure Injury with tunneling R Buttocks (L)5.8cm x (W)3.4cm x (D)2.7cm,Tunneling clockwise 11-12 by 3.9cm @12 o'clock. Beefy granulation at base of wound.Bone is palpable at base of wound. Edges are flat and adherent to base of wound. [place] epithelial with scattered areas of hyperpigmentation periwound. Small amt sanguineous exudate noted. No odor noted. Partial thickness wounds in L shape formation noted R buttocks in close proximity to above wound. Marginal erythema along borders. (L)9.2cm x (W)5.5cm. Small amt serosanguineous exudate noted. Partially opened DTPI Sacrum (L)6.2cm x (W)3.3cm. Base of wound is purpuric and fluctuant with macerated borders including periwound. Scrotum is erythematous. Non-Blanchable erythema without fluctuance or induration R and L heels. Tx.Plan: Cleanse Sacral wound with Saline. Apply TheraHoney. Apply Moisture Barrier Paste periwound. Cover with Optifoam Drsg Daily and prn. Cleanse wound R Buttocks with Saline. Loosely pack with Therahoney impregnated Kerlix. Apply Moisture Barrier Paste periwound. Cover with Optifoam drsg. Change Daily and Prn. Apply Moisture Barrier paste to wound Outer R Buttocks. Cover with Optifoam drsg. Change every 3 days and prn. Apply Moisture Barrier Paste to Scrotum and groin area with each Incontinence care. Cleanse GT site with soap and water. Pat dry. Apply Zinc Oxide Paste to GT Site BID. Apply Cavilon Skin Barrier to both heels and Malleoli. Cover each site with Optifoam drsgs. Change every 7 days and prn. Reposition at least every 2hours or as tolerated. Off-load heels with pillow. APM/DALTON Mattress overlay. (3) Leukocytosis Assessment & Plan: There appears to be a large open wound in the inferomedial right buttock adjacent to the right ischium. There are a few gas bubbles within the soft tissues subjacent to this. No discrete fluid collection demonstrated. There is some infiltration of the tissues lateral to the ischium. There is evidence of cortical erosion and bone loss of posterior and inferior ischium, consistent with osteomyelitis. on abx picc cont tx micro reviewed plan repeat CT - as below improved Again demonstrated is a wound in the right ischial region. This appears to contain some packing material. This appears to penetrate much less deeply than on the prior study, as no deep gas bubbles are evident. Density in the area appears to be scar tissue rather than fluid. Again demonstrated is erosion of the adjacent ischium, extent of which appears to be unchanged. Again demonstrated is extensive heterotopic ossification and degenerative change about the left hip. Again demonstrated is a left inguinal hernia that contains only fat. Again demonstrated is broad-based diastasis of the rectus abdominis tendon above the umbilicus, bordering on herniation. There is also a tiny fat-containing umbilical hernia. There is evidence of prior surgery in the region. There is no evidence of obstruction. There is distention of the rectum by feces. This appears less severe than on the prior study. Again demonstrated is extensive colonic diverticulosis. No evidence of diverticulitis. What appears to be a short normal appendix is evident. No small bowel distention. No free or loculated intraperitoneal gas or fluid is evident. No small bowel wall thickening. There is a gastrostomy in place which appears well- positioned. There is evidence of prior gastric surgery. The distal esophagus and duodenum are unremarkable. The gallbladder contains gallstones. Lack of IV contrast limits assessment of the solid organs. The liver is grossly unremarkable. The pancreas is atrophic and nearly completely fatty replaced. The spleen is not demonstrated, although there is evidence of some scattered splenic tissue in the left upper quadrant. The adrenals are unremarkable. Right renal staghorn calculi and other calyceal calculi are again demonstrated. Left renal parapelvic cyst or cysts are again demonstrated. A small peripheral calyceal calculus is also demonstrated in the left kidney. No retroperitoneal or mesenteric mass or adenopathy. The bladder is empty, contains a Peters catheter. Calculi are again demonstrated within the bladder. The prostate is enlarged. The lung bases demonstrate considerable consolidation involving the right lower lobe. There is also a component of volume loss. There is some posterior dependent atelectasis of the left lung as well. The bones demonstrate degenerative spondylosis changes, appearing similar to the previous study. There is a stable mild compression fracture deformity of the L3 vertebral body. Impression: Right ischial region wound, consistent with known clinical history of decubitus changes in this area. This appears to demonstrate some interim healing since previous study. Stable erosive changes of the adjacent ischium. No definite evidence of abscess, although evaluation for such is limited given the absence of IV contrast administration. Evidence of rectal fecal impaction, less severe than on the previous study. Diverticulosis, also previously reported Cholelithiasis, also previously reported Unchanged right renal staghorn and other calculi, small left renal calculus Right lower lobe consolidation and volume loss. Less extensive atelectasis of the posterior left lung Broad-based diastasis of the rectus abdominis tendon bordering on herniation, nonobstructive, also previously reported Absent spleen. There is evidence of some scattered splenic tissue in the left upper quadrant, also previously reported Other findings as noted, including gastrostomy, evidence of prior gastric surgery, atrophic fatty replaced pancreas, left renal parapelvic cyst or cysts, Peters catheter, enlarged prostate, bladder calculi, degenerative spondylosis, stable L3 vertebral body mild compression fracture deformity (4) UTI (urinary tract infection) (5) Pneumonia (6) Septic shock (7) Urinary retention (8) Hematuria (9) Hematuria (10) Failure to thrive (11) Fecal impaction (12) Hypernatremia (13) Bowel obstruction (14) Bowel obstruction (15) Leukocytosis (16) Respiratory failure (17) Sepsis (18) Sepsis (19) Respiratory failure, chronic (20) SBO (small bowel obstruction) (21) Hypertension (22) Pneumonia (23) [id number] (24) Pneumonia (25) Pneumonia (26) Encephalopathy acute (27) Encephalopathy chronic (28) Abnormal laboratory test result (29) Diabetes mellitus out of control (30) BPH (benign prostatic hyperplasia) (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
[2020-03-24] VITALS: BP 117/71
--- NOTE | 2020-03-24 02:27 | Cardiology Progress Note ---
Subjective DATE OF SERVICE: Mar 23, 2020 On vent support via trach - Tcollar being considered. BP range remains stable Urine culture + yeast Monitor: sinus WBC count improving Objective Last 24 Hour Vital Signs Date Time Temp Pulse Resp B/P (MAP) Pulse Ox O2 Delivery O2 Flow Rate FiO2 03/24/20 00:00 99.0 67 16 117/71 (86) 100 03/24/20 00:00 Mechanical Ventilator 03/24/20 00:00 40 03/23/20 23:29 67 03/23/20 22:50 68 16 100 Mechanical Ventilator 40 71 16 40 03/23/20 22:14 119/67 03/23/20 20:22 64 130/66 03/23/20 20:00 98.7 77 16 130/66 (87) 100 03/23/20 20:00 40 03/23/20 20:00 71 03/23/20 20:00 Mechanical Ventilator 03/23/20 19:46 72 16 40 03/23/20 16:00 40 03/23/20 16:00 62 03/23/20 16:00 Mechanical Ventilator 03/23/20 16:00 97.1 64 16 122/62 (82) 100 03/23/20 15:47 72 16 100 Mechanical Ventilator 40 76 16 40 03/23/20 14:55 68 16 40 03/23/20 14:39 120/60 03/23/20 12:00 97.2 67 21 120/60 (80) 100 03/23/20 12:00 Mechanical Ventilator 03/23/20 12:00 40 03/23/20 12:00 67 03/23/20 10:40 71 16 40 03/23/20 09:03 80 117/64 03/23/20 09:03 80 117/64 03/23/20 08:00 52 03/23/20 08:00 40 03/23/20 08:00 97.2 57 18 117/64 (81) 100 03/23/20 08:00 Mechanical Ventilator 03/23/20 06:49 56 16 40 03/23/20 05:20 143/77 03/23/20 04:00 Mechanical Ventilator 03/23/20 04:00 40 03/23/20 04:00 74 03/23/20 04:00 97.9 75 19 127/68 (87) 97 9/28/20 03:02 72 16 40 ROS: no change from my dictation of 03/15/20 HEENT: Mechanically Ventilated, Thick Trach secretions RHYTHM: NSR LUNGS: bilateral rhonchi CARDIAC: regular rhythm, normal S1 and S2, rapid rate, tachycardia ABDOMEN: non tender, soft, no organomegaly, G-Tube intact EXTREMITIES: non-tender, No edema, other - sacral decub; Neuro unresponsive Laboratory Tests Test 03/23/20 03:00 03/23/20 06:08 03/23/20 18:06 03/23/20 19:00 White Blood Count 17.7 K/UL (4.8-10.8) H Red Blood Count 3.65 M/UL (4.70-6.10) L Hemoglobin 9.5 G/DL (14.2-18.0) L Hematocrit 30.6 % (42.0-52.0) L Mean Corpuscular Volume 84 FL (80-99) Mean Corpuscular Hemoglobin 26.1 PG (27.0-31.0) L Mean Corpuscular Hemoglobin Concent 31.0 G/DL (32.0-36.0) L Red Cell Distribution Width 18.0 % (11.6-14.8) H Platelet Count 602 K/UL (150-450) H Mean Platelet Volume 8.2 FL (6.5-10.1) Neutrophils (%) (Auto) 67.4 % (45.0-75.0) Lymphocytes (%) (Auto) 19.6 % (20.0-45.0) L Monocytes (%) (Auto) 8.3 % (1.0-10.0) Eosinophils (%) (Auto) 3.8 % (0.0-3.0) H Basophils (%) (Auto) 0.8 % (0.0-2.0) Sodium Level 149 MMOL/L (136-145) H Potassium Level 3.8 MMOL/L (3.5-5.1) Chloride Level 112 MMOL/L (98-107) H Carbon Dioxide Level 28 MMOL/L (21-32) Anion Gap 9 mmol/L (5-15) Blood Urea Nitrogen 22 mg/dL (7-18) H Creatinine 1.0 MG/DL (0.55-1.30) Estimat Glomerular Filtration Rate > 60 mL/min (>60) Glucose Level 131 MG/DL (74-106) H Calcium Level 9.2 MG/DL (8.5-10.1) Total Bilirubin 0.3 MG/DL (0.2-1.0) Aspartate Amino Transf (AST/SGOT) 16 U/L (15-37) Alanine Aminotransferase (ALT/SGPT) 27 U/L (12-78) Alkaline Phosphatase 85 U/L (46-116) Total Protein 7.8 G/DL (6.4-8.2) Albumin 2.5 G/DL (3.4-5.0) L Globulin 5.3 g/dL Albumin/Globulin Ratio 0.5 (1.0-2.7) L POC Whole Blood Glucose 125 MG/DL (74-106) H Pending Stool Occult Blood Pending Test 03/23/20 23:14 POC Whole Blood Glucose 139 MG/DL (74-106) H Assessment/Plan Assessment/Plan Severe sepsis Fungal cystitis Respiratory failure with trach Chronic encephalopathy HC assoc PNA Hypertension/HHC now with stable BP trend Acute/chronic diastolic CHF Anemia Dysphagia with GTube Dehydration/hypernatremia BPH Anti-fungal therapy Vent Resp Rx Trend BNP; adjust fluids accordingly - add'l free water by Gtube DVT prophyl Nutritional support by Gtube Consolidate BP meds - Advance doxazosin, DC tamsulosin and hydralazine Brady Burks MD Mar 24, 2020 02:27
[2020-03-24 04:00] VITALS: BP 119/60
[2020-03-24] MEDS: NovoLOG Insulin Flexpen SUBQ SCH ×3 (05:09→18:00)
[2020-03-24] MEDS: Piperacillin/Tazobactam 3.375 GM in NS 110 ML IVPB SCH ×2 (05:25→14:29)
[2020-03-24 05:35] LABS: BASOPHILS % (AUTO) 0.8 % (0.0-2.0); EOSINOPHILS % (AUTO) 5.5 % (0.0-3.0); HEMATOCRIT 28.7 % (42.0-52.0); LYMPHOCYTES % (AUTO) 20.2 % (20.0-45.0); MEAN CORPUSCULAR VOLUME 83 FL (80-99); MONOCYTES % (AUTO) 8.9 % (1.0-10.0); NEUTROPHILS % (AUTO) 64.5 % (45.0-75.0); PLATELET COUNT 541 K/UL (150-450); RED BLOOD COUNT 3.45 M/UL (4.70-6.10); RED CELL DISTRIBUTION WIDTH 17.5 % (11.6-14.8); WHITE BLOOD COUNT 13.2 K/UL (4.8-10.8)
[2020-03-24 06:12] LABS: ALANINE AMINOTRANSFERASE 27 U/L (12-78); ALBUMIN 2.3 G/DL (3.4-5.0); ALBUMIN/GLOBULIN RATIO 0.6 (1.0-2.7); ALKALINE PHOSPHATASE 77 U/L (46-116); ANION GAP 8 mmol/L (5-15); ASPARTATE AMINO TRANSFERASE 16 U/L (15-37); BILIRUBIN,TOTAL 0.3 MG/DL (0.2-1.0); BLOOD UREA NITROGEN 27 mg/dL (7-18); CALCIUM 9.2 MG/DL (8.5-10.1); CARBON DIOXIDE 28 MMOL/L (21-32); CHLORIDE 112 MMOL/L (98-107); CREATININE 0.9 MG/DL (0.55-1.30); POTASSIUM 3.6 MMOL/L (3.5-5.1); SODIUM 148 MMOL/L (136-145)
--- NOTE | 2020-03-24 07:52 | Pulmonology Progress Note ---
Subjective ROS Limited/Unobtainable: Yes Constitutional: Denies: fever Allergies: Coded Allergies: No Known Allergies (Unverified , 02/11/13) All Systems: reviewed and negative except above Subjective cultures noted all reviewed on vent NAD Objective Last 24 Hour Vital Signs Date Time Temp Pulse Resp B/P (MAP) Pulse Ox O2 Delivery O2 Flow Rate FiO2 03/24/20 04:00 98.6 59 16 119/60 (79) 100 03/24/20 04:00 40 03/24/20 04:00 Mechanical Ventilator 03/24/20 03:26 53 03/24/20 03:19 51 15 40 03/24/20 00:00 99.0 67 16 117/71 (86) 100 03/24/20 00:00 Mechanical Ventilator 03/24/20 00:00 40 03/23/20 23:29 67 03/23/20 22:50 68 16 100 Mechanical Ventilator 40 71 16 40 03/23/20 22:14 119/67 03/23/20 20:22 64 130/66 03/23/20 20:00 98.7 77 16 130/66 (87) 100 03/23/20 20:00 40 03/23/20 20:00 71 03/23/20 20:00 Mechanical Ventilator 03/23/20 19:46 72 16 40 03/23/20 16:00 40 03/23/20 16:00 62 03/23/20 16:00 Mechanical Ventilator 03/23/20 16:00 97.1 64 16 122/62 (82) 100 03/23/20 15:47 72 16 100 Mechanical Ventilator 40 76 16 40 03/23/20 14:55 68 16 40 03/23/20 14:39 120/60 03/23/20 12:00 97.2 67 21 120/60 (80) 100 03/23/20 12:00 Mechanical Ventilator 03/23/20 12:00 40 03/23/20 12:00 67 03/23/20 10:40 71 16 40 03/23/20 09:03 80 117/64 03/23/20 09:03 80 117/64 03/23/20 08:00 52 03/23/20 08:00 40 03/23/20 08:00 97.2 57 18 117/64 (81) 100 03/23/20 08:00 Mechanical Ventilator Intake and Output 03/23/20 03/24/20 19:00 07:00 Intake Total 1017.5 ml 1435.5 ml Output Total 801 ml 1000 ml Balance 216.5 ml 435.5 ml Free Water 200 ml 480 ml IV Total 82.5 ml 415.5 ml Tube Feeding 495 ml 540 ml Other 240 ml Output Urine Total 800 ml 1000 ml Stool Total 1 ml Objective WDWN NAD trach clear breath sounds bilaterally without rhonchi or wheeze [id number] without MRG NABS nontender no distention; gt no CCE nonfocal poor LOC krishnan Laboratory Tests 03/23/20 18:06: POC Whole Blood Glucose [Pending] 03/23/20 19:00: Stool Occult Blood [Pending] 03/23/20 23:14: POC Whole Blood Glucose 139H 03/24/20 02:40: White Blood Count 13.2H, Red Blood Count 3.45L, Hemoglobin 9.0L, Hematocrit 28.7L, Mean Corpuscular Volume 83, Mean Corpuscular Hemoglobin 26.0L, Mean Corpu scular Hemoglobin Concent 31.3L, Red Cell Distribution Width 17.5H, Platelet Count 541H, Mean Platelet Volume 8.3, Neutrophils (%) (Auto) 64.5, Lymphocytes (%) (Auto) 20.2, Monocytes (%) (Auto) 8.9, Eosinophils (%) (Auto) 5.5H, Basophils (%) (Auto) 0.8, Sodium Level 148H, Potassium Level 3.6, Chloride Level 112H, Carbon Dioxide Level 28, Anion Gap 8, Blood Urea Nitrogen 27H, Creatinine 0.9, Estimat Glomerular Filtration Rate > 60, Glucose Level 102, Calcium Level 9.2, Total Bilirubin 0.3, Aspartate Amino Transf (AST/SGOT) 16, Alanine Aminotransferase (ALT/SGPT) 27, Alkaline Phosphatase 77, Total Protein 6.4, Albumin 2.3L, Globulin 4.1, Albumin/Globulin Ratio 0.6L 03/24/20 04:57: POC Whole Blood Glucose 107H Current Medications Medications (Trade) Dose Ordered Sig/Magda Route PRN Reason Start Time Stop Time Status Last Admin Dose Admin Acetaminophen (Tylenol) 650 mg DAILY PRN ORAL pain mgt 03/15/20 16:00 04/14/20 15:59 03/15/20 20:15 Amlodipine Besylate (Norvasc) 5 mg DAILY GT 03/20/20 09:00 04/19/20 08:59 03/23/20 09:03 Ascorbic Acid (Vitamin C) 500 mg DAILY GT 03/16/20 09:00 04/15/20 08:59 03/23/20 09:02 Bisacodyl (Dulcolax) 10 mg DAILY PRN RECTAL Constipation 03/15/20 16:00 06/13/20 15:59 Calcium Carbonate (Calcium Carbonate) 650 mg DAILY GT 03/16/20 09:00 06/14/20 08:59 03/23/20 08:50 Chlorhexidine Gluconate (Ingris-Hex 2%) 1 applic DAILY@199903/16/20 20:00 06/14/20 19:59 03/23/20 20:22 Clonidine HCl (Catapres Tab) 0.1 mg Q6H PRN GT HTN SBP > 160 03/15/20 16:00 06/13/20 15:59 Dextrose (Dextrose 50%) 25 ml Q30M PRN IV Hypoglycemia 03/15/20 16:00 06/13/20 15:59 Dextrose (Dextrose 50%) 50 ml Q30M PRN IV Hypoglycemia 03/15/20 16:00 06/13/20 15:59 03/18/20 05:04 Docusate Sodium (Colace) 100 mg TWICE A DAY GT 03/16/20 09:00 04/15/20 08:59 03/23/20 18:05 Doxazosin Mesylate (Cardura) 4 mg EVERY 12 HOURS GT 03/24/20 09:00 04/23/20 08:59 Epoetin Anson (Epoetin Anson-EPBX(NON ESRD)) 2,000 unit MON-MON-MON SUBQ 03/20/20 21:00 06/18/20 20:59 03/23/20 20:50 Epoetin Anson (Epoetin Anson-EPBX(NON ESRD)) 3,000 unit SUBQ 03/20/20 21:00 06/18/20 20:59 03/23/20 20:50 Finasteride (Proscar) 5 mg DAILY ORAL 03/16/20 09:00 06/14/20 08:59 03/23/20 09:04 Gentamicin Sulfate (Gentamicin vial) 300 mg Q12HR@10,22 INH 03/20/20 22:00 03/27/20 21:59 03/23/20 22:50 Heparin Sodium (Porcine) (Heparin 5000 units/ml) 5,000 units EVERY 12 HOURS SUBQ 03/15/20 21:00 04/29/20 20:59 03/23/20 20:24 Insulin Aspart (NovoLOG) EVERY 6 HOURS SUBQ 03/18/20 00:00 06/13/20 16:29 03/23/20 12:09 Insulin Detemir (Levemir) 20 units BID SUBQ 03/18/20 09:00 06/16/20 08:59 03/23/20 18:08 Magnesium Hydroxide (Mom) 30 ml BEDTIME PRN GT Constipation 03/15/20 16:00 04/14/20 15:59 Metoprolol Tartrate (Lopressor) 25 mg EVERY 12 HOURS GT 03/15/20 21:00 06/13/20 20:59 03/23/20 20:22 Piperacillin Sod/ Tazobactam Sod 3.375 gm/Sodium Chloride 110 ml @ 27.5 mls/hr EVERY 8 HOURS IVPB 03/15/20 22:00 03/24/20 23:59 03/24/20 05:25 Saccharomyces Boulardii (Florastor) 250 mg TWICE A DAY GT 03/15/20 18:00 06/13/20 17:59 03/23/20 18:05 Sodium Chloride 1,000 ml @ 100 mls/hr Q10H IV 03/24/20 03:00 04/23/20 02:59 03/24/20 03:13 Sodium Phosphate (Fleet's Sodium Phosl Enema) 133 ml DAILYPRN PRN RECTAL Constipation 03/15/20 16:00 04/14/20 15:59 Zinc Oxide (Zinc Oxide) 1 applic THREE TIMES A DAY TOPIC 03/15/20 18:00 06/13/20 17:59 03/23/20 18:09 Assessment/Plan Assessment/Plan IMPRESSION respiratory failure chronic osteomyelitis leukocytosis anemia trach GT chronic encephalopathy PLAN IV antibiotics reviewed reviewed cultures care noted and discussed respiratory care as is monitor oxygen wound care as is and position change feeds and monitor residuals off load and wound care monitor HH transfuse PRN monitor wbc and proceed with dc if cleared by ID - near baseline d/w Dr. Perkins impression, plan, and exam edited and reviewed in detail care discussed with Silver Correa MD Mar 24, 2020 07:52
[2020-03-24 08:00] VITALS: BP 132/91
[2020-03-24] MEDS ORDERED: Doxazosin 1mg Tab GT SCH (09:00)
[2020-03-24] MEDS: Ascorbic Acid 500mg tab GT SCH (09:26)
[2020-03-24] MEDS: Docusate 100mg/10ml Liq GT SCH ×2 (09:26→18:00)
[2020-03-24] MEDS: Calcium Carbonate 650mg Tab GT SCH (09:26)
[2020-03-24] MEDS: Heparin 5000 units/ml inj SUBQ SCH (09:30)
[2020-03-24] MEDS: Zinc Oxide Oint 2oz TOPIC SCH ×3 (09:31→18:00)
[2020-03-24] MEDS: Levemir Flexpen SUBQ SCH ×2 (09:31→18:00)
[2020-03-24] MEDS: Gentamicin for inhalation INH SCH (09:36)
--- NOTE | 2020-03-24 11:19 | Infectious Diseases Prog Note ---
"Assessment/Plan Assessment/Plan antibiotics : zosyn, inhaled gentamicin A 1. streptococcus | fungal UTI s/p rx 2. proteus | pseudomonas pneumonia 3. respiratory failure 4. diabetes mellitus 5. hypertension 6. COPD 7. leucocytosis improving P 1. d/c zosyn 2. continue inhaled gentamicin 2 more days 3. will follow up cultures Subjective ROS Limited/Unobtainable: Yes Allergies: Coded Allergies: No Known Allergies (Unverified , 02/11/13) Objective Last 24 Hour Vital Signs Date Time Temp Pulse Resp B/P (MAP) Pulse Ox O2 Delivery O2 Flow Rate FiO2 03/24/20 10:30 64 16 100 Mechanical Ventilator 40 64 16 40 03/24/20 09:33 72 132/91 03/24/20 09:32 72 132/91 03/24/20 08:00 40 03/24/20 08:00 50 03/24/20 08:00 97.3 72 16 132/91 (105) 100 03/24/20 08:00 Mechanical Ventilator 03/24/20 07:30 72 17 40 03/24/20 04:00 98.6 59 16 119/60 (79) 100 03/24/20 04:00 40 03/24/20 04:00 Mechanical Ventilator 03/24/20 03:26 53 03/24/20 03:19 51 15 40 03/24/20 00:00 99.0 67 16 117/71 (86) 100 03/24/20 00:00 Mechanical Ventilator 03/24/20 00:00 40 03/23/20 23:29 67 03/23/20 22:50 68 16 100 Mechanical Ventilator 40 71 16 40 03/23/20 22:14 119/67 03/23/20 20:22 64 130/66 03/23/20 20:00 98.7 77 16 130/66 (87) 100 03/23/20 20:00 40 03/23/20 20:00 71 03/23/20 20:00 Mechanical Ventilator 03/23/20 19:46 72 16 40 03/23/20 16:00 40 03/23/20 16:00 62 03/23/20 16:00 Mechanical Ventilator 03/23/20 16:00 97.1 64 16 122/62 (82) 100 03/23/20 15:47 72 16 100 Mechanical Ventilator 40 76 16 40 03/23/20 14:55 68 16 40 03/23/20 14:39 120/60 03/23/20 12:00 97.2 67 21 120/60 (80) 100 03/23/20 12:00 Mechanical Ventilator 03/23/20 12:00 40 03/23/20 12:00 67 Height (Feet): 5 Height (Inches): 10.00 Weight (Pounds): 207 HEENT: status post trach Respiratory/Chest: lungs clear Cardiovascular: normal rate, regular rhythm, no gallop/murmur Abdomen: soft, non tender, other - GT Extremities: no edema Laboratory Tests Test 03/23/20 18:06 03/23/20 19:00 03/23/20 23:14 03/24/20 02:40 POC Whole Blood Glucose Pending 139 MG/DL (74-106) H Stool Occult Blood Negative (NEGATIVE) White Blood Count 13.2 K/UL (4.8-10.8) H Red Blood Count 3.45 M/UL (4.70-6.10) L Hemoglobin 9.0 G/DL (14.2-18.0) L Hematocrit 28.7 % (42.0-52.0) L Mean Corpuscular Volume 83 FL (80-99) Mean Corpuscular Hemoglobin 26.0 PG (27.0-31.0) L Mean Corpuscular Hemoglobin Concent 31.3 G/DL (32.0-36.0) L Red Cell Distribution Width 17.5 % (11.6-14.8) H Platelet Count 541 K/UL (150-450) H Mean Platelet Volume 8.3 FL (6.5-10.1) Neutrophils (%) (Auto) 64.5 % (45.0-75.0) Lymphocytes (%) (Auto) 20.2 % (20.0-45.0) Monocytes (%) (Auto) 8.9 % (1.0-10.0) Eosinophils (%) (Auto) 5.5 % (0.0-3.0) H Basophils (%) (Auto) 0.8 % (0.0-2.0) Sodium Level 148 MMOL/L (136-145) H Potassium Level 3.6 MMOL/L (3.5-5.1) Chloride Level 112 MMOL/L (98-107) H Carbon Dioxide Level 28 MMOL/L (21-32) Anion Gap 8 mmol/L (5-15) Blood Urea Nitrogen 27 mg/dL (7-18) H Creatinine 0.9 MG/DL (0.55-1.30) Estimat Glomerular Filtration Rate > 60 mL/min (>60) Glucose Level 102 MG/DL (74-106) Calcium Level 9.2 MG/DL (8.5-10.1) Total Bilirubin 0.3 MG/DL (0.2-1.0) Aspartate Amino Transf (AST/SGOT) 16 U/L (15-37) Alanine Aminotransferase (ALT/SGPT) 27 U/L (12-78) Alkaline Phosphatase 77 U/L (46-116) Total Protein 6.4 G/DL (6.4-8.2) Albumin 2.3 G/DL (3.4-5.0) L Globulin 4.1 g/dL Albumin/Globulin Ratio 0.6 (1.0-2.7) L Test 03/24/20 04:57 POC Whole Blood Glucose 107 MG/DL (74-106) H Current Medications Medications (Trade) Dose Ordered Sig/Magda Route PRN Reason Start Time Stop Time Status Last Admin Dose Admin Acetaminophen (Tylenol) 650 mg DAILY PRN ORAL pain mgt 03/15/20 16:00 04/14/20 15:59 03/15/20 20:15 Amlodipine Besylate (Norvasc) 5 mg DAILY GT 03/20/20 09:00 04/19/20 08:59 03/24/20 09:33 Ascorbic Acid (Vitamin C) 500 mg DAILY GT 03/16/20 09:00 04/15/20 08:59 03/24/20 09:26 Bisacodyl (Dulcolax) 10 mg DAILY PRN RECTAL Constipation 03/15/20 16:00 06/13/20 15:59 Calcium Carbonate (Calcium Carbonate) 650 mg DAILY GT 03/16/20 09:00 06/14/20 08:59 03/24/20 09:26 Chlorhexidine Gluconate (Ingris-Hex 2%) 1 applic DAILY@1999 TOPIC 03/16/20 20:00 06/14/20 19:59 03/23/20 20:22 Clonidine HCl (Catapres Tab) 0.1 mg Q6H PRN GT HTN SBP > 160 03/15/20 16:00 06/13/20 15:59 Dextrose (Dextrose 50%) 25 ml Q30M PRN IV Hypoglycemia 03/15/20 16:00 06/13/20 15:59 Dextrose (Dextrose 50%) 50 ml Q30M PRN IV Hypoglycemia 03/15/20 16:00 06/13/20 15:59 03/18/20 05:04 Docusate Sodium (Colace) 100 mg TWICE A DAY GT 03/16/20 09:00 04/15/20 08:59 03/24/20 09:26 Doxazosin Mesylate (Cardura) 4 mg EVERY 12 HOURS GT 03/24/20 09:00 04/23/20 08:59 03/24/20 09:29 Epoetin Anson (Epoetin Anson-EPBX(NON ESRD)) 2,000 unit MON-MON-MON SUBQ 03/20/20 21:00 06/18/20 20:59 03/23/20 20:50 Epoetin Anson (Epoetin Anson-EPBX(NON ESRD)) 3,000 unit MON-MON-MON SUBQ 03/20/20 21:00 06/18/20 20:59 03/23/20 20:50 Finasteride (Proscar) 5 mg DAILY ORAL 03/16/20 09:00 06/14/20 08:59 03/24/20 09:33 Gentamicin Sulfate (Gentamicin vial) 300 mg Q12HR@10,22 INH 03/20/20 22:00 03/27/20 21:59 03/24/20 09:36 Heparin Sodium (Porcine) (Heparin 5000 units/ml) 5,000 units EVERY 12 HOURS SUBQ 03/15/20 21:00 04/29/20 20:59 03/24/20 09:30 Insulin Aspart (NovoLOG) EVERY 6 HOURS SUBQ 03/18/20 00:00 06/13/20 16:29 03/23/20 12:09 Insulin Detemir (Levemir) 20 units BID SUBQ 03/18/20 09:00 06/16/20 08:59 03/24/20 09:31 Magnesium Hydroxide (Mom) 30 ml BEDTIME PRN GT Constipation 03/15/20 16:00 04/14/20 15:59 Metoprolol Tartrate (Lopressor) 25 mg EVERY 12 HOURS GT 03/15/20 21:00 06/13/20 20:59 03/24/20 09:32 Piperacillin Sod/ Tazobactam Sod 3.375 gm/Sodium Chloride 110 ml @ 27.5 mls/hr EVERY 8 HOURS IVPB 03/15/20 22:00 03/24/20 23:59 03/24/20 05:25 Saccharomyces Boulardii (Florastor) 250 mg TWICE A DAY GT 03/15/20 18:00 06/13/20 17:59 03/24/20 09:29 Sodium Chloride 1,000 ml @ 100 mls/hr Q10H IV 03/24/20 03:00 04/23/20 02:59 03/24/20 03:13 Sodium Phosphate (Fleet's Sodium Phosl Enema) 133 ml DAILYPRN PRN RECTAL Constipation 03/15/20 16:00 04/14/20 15:59 Zinc Oxide (Zinc Oxide) 1 applic THREE TIMES A DAY TOPIC 03/15/20 18:00 06/13/20 17:59 03/24/20 09:31 Jesica Alegria MD Mar 24, 2020 11:19"
[2020-03-24 11:34] VITALS: BP 119/64
--- NOTE | 2020-03-24 12:45 | Surgery Progress Note ---
Surgery Progress Note Subjective Additional Comments leukocytosis improved no n/v/f/c labs noted comfortable appearing Objective Last 24 Hour Vital Signs Date Time Temp Pulse Resp B/P (MAP) Pulse Ox O2 Delivery O2 Flow Rate FiO2 03/24/20 10:30 64 16 100 Mechanical Ventilator 40 64 16 40 03/24/20 09:33 72 132/91 03/24/20 09:32 72 132/91 03/24/20 08:00 40 03/24/20 08:00 50 03/24/20 08:00 97.3 72 16 132/91 (105) 100 03/24/20 08:00 Mechanical Ventilator 03/24/20 07:30 72 17 40 03/24/20 04:00 98.6 59 16 119/60 (79) 100 03/24/20 04:00 40 03/24/20 04:00 Mechanical Ventilator 03/24/20 03:26 53 03/24/20 03:19 51 15 40 03/24/20 00:00 99.0 67 16 117/71 (86) 100 03/24/20 00:00 Mechanical Ventilator 03/24/20 00:00 40 03/23/20 23:29 67 03/23/20 22:50 68 16 100 Mechanical Ventilator 40 71 16 40 03/23/20 22:14 119/67 03/23/20 20:22 64 130/66 03/23/20 20:00 98.7 77 16 130/66 (87) 100 03/23/20 20:00 40 03/23/20 20:00 71 03/23/20 20:00 Mechanical Ventilator 03/23/20 19:46 72 16 40 03/23/20 16:00 40 03/23/20 16:00 62 03/23/20 16:00 Mechanical Ventilator 03/23/20 16:00 97.1 64 16 122/62 (82) 100 03/23/20 15:47 72 16 100 Mechanical Ventilator 40 76 16 40 03/23/20 14:55 68 16 40 03/23/20 14:39 120/60 I&O Intake and Output 03/23/20 03/24/20 18:59 06:59 Intake Total 1062.5 ml 1390.5 ml Output Total 801 ml 1000 ml Balance 261.5 ml 390.5 ml Free Water 200 ml 480 ml IV Total 82.5 ml 415.5 ml Tube Feeding 540 ml 495 ml Other 240 ml Output Urine Total 800 ml 1000 ml Stool Total 1 ml Dressing: other Wound: other Cardiovascular: RSR Respiratory: decreased breath sounds Abdomen: soft, non-tender, present bowel sounds Extremities: no tenderness, no cyanosis Laboratory Tests Test 03/23/20 18:06 03/23/20 19:00 03/23/20 23:14 03/24/20 02:40 POC Whole Blood Glucose Pending 139 MG/DL (74-106) H Stool Occult Blood Negative (NEGATIVE) White Blood Count 13.2 K/UL (4.8-10.8) H Red Blood Count 3.45 M/UL (4.70-6.10) L Hemoglobin 9.0 G/DL (14.2-18.0) L Hematocrit 28.7 % (42.0-52.0) L Mean Corpuscular Volume 83 FL (80-99) Mean Corpuscular Hemoglobin 26.0 PG (27.0-31.0) L Mean Corpuscular Hemoglobin Concent 31.3 G/DL (32.0-36.0) L Red Cell Distribution Width 17.5 % (11.6-14.8) H Platelet Count 541 K/UL (150-450) H Mean Platelet Volume 8.3 FL (6.5-10.1) Neutrophils (%) (Auto) 64.5 % (45.0-75.0) Lymphocytes (%) (Auto) 20.2 % (20.0-45.0) Monocytes (%) (Auto) 8.9 % (1.0-10.0) Eosinophils (%) (Auto) 5.5 % (0.0-3.0) H Basophils (%) (Auto) 0.8 % (0.0-2.0) Sodium Level 148 MMOL/L (136-145) H Potassium Level 3.6 MMOL/L (3.5-5.1) Chloride Level 112 MMOL/L (98-107) H Carbon Dioxide Level 28 MMOL/L (21-32) Anion Gap 8 mmol/L (5-15) Blood Urea Nitrogen 27 mg/dL (7-18) H Creatinine 0.9 MG/DL (0.55-1.30) Estimat Glomerular Filtration Rate > 60 mL/min (>60) Glucose Level 102 MG/DL (74-106) Calcium Level 9.2 MG/DL (8.5-10.1) Total Bilirubin 0.3 MG/DL (0.2-1.0) Aspartate Amino Transf (AST/SGOT) 16 U/L (15-37) Alanine Aminotransferase (ALT/SGPT) 27 U/L (12-78) Alkaline Phosphatase 77 U/L (46-116) Total Protein 6.4 G/DL (6.4-8.2) Albumin 2.3 G/DL (3.4-5.0) L Globulin 4.1 g/dL Albumin/Globulin Ratio 0.6 (1.0-2.7) L Test 03/24/20 04:57 POC Whole Blood Glucose 107 MG/DL (74-106) H Plan Problems: (1) Anemia (2) Decubital ulcer Assessment & Plan: Patient presented admission with a stage IV sacral decubitus ulcer and deep tissue injury wound with maceration of skin as well as into the buttock. Wound evaluated bedside with care team. Care plan and dressings applied. Thera honey initiated. Will follow with recommendations and care plan. Pt presented on admission with Tracheostomy,Erosion at GT site, Multiple Pressure injuries. Skin assessed around collar of trach and no areas of skin breakdown noted. Insertion site and Peristomal GT erythematous and macerated. Silver Nitrate x1 application applied. Full Thickness Pressure Injury with tunneling R Buttocks (L)5.8cm x (W)3.4cm x (D)2.7cm,Tunneling clockwise 11-12 by 3.9cm @12 o'clock. Beefy granulation at base of wound.Bone is palpable at base of wound. Edges are flat and adherent to base of wound. Kinta epithelial with scattered areas of hyperpigmentation periwound. Small amt sanguineous exudate noted. No odor noted. Partial thickness wounds in L shape formation noted R buttocks in close proximity to above wound. Marginal erythema along borders. (L)9.2cm x (W)5.5cm. Small amt serosanguineous exudate noted. Partially opened DTPI Sacrum (L)6.2cm x (W)3.3cm. Base of wound is purpuric and fluctuant with macerated borders including periwound. Scrotum is erythematous. Non-Blanchable erythema without fluctuance or induration R and L heels. Tx.Plan: Cleanse Sacral wound with Saline. Apply TheraHoney. Apply Moisture Barrier Paste periwound. Cover with Optifoam Drsg Daily and prn. Cleanse wound R Buttocks with Saline. Loosely pack with Therahoney impregnated Kerlix. Apply Moisture Barrier Paste periwound. Cover with Optifoam drsg. Change Daily and Prn. Apply Moisture Barrier paste to wound Outer R Buttocks. Cover with Optifoam drsg. Change every 3 days and prn. Apply Moisture Barrier Paste to Scrotum and groin area with each Incontinence care. Cleanse GT site with soap and water. Pat dry. Apply Zinc Oxide Paste to GT Site BID. Apply Cavilon Skin Barrier to both heels and Malleoli. Cover each site with Optifoam drsgs. Change every 7 days and prn. Reposition at least every 2hours or as tolerated. Off-load heels with pillow. APM/DALTON Mattress overlay. (3) Leukocytosis Assessment & Plan: There appears to be a large open wound in the inferomedial right buttock adjacent to the right ischium. There are a few gas bubbles within the soft tissues subjacent to this. No discrete fluid collection demonstrated. There is some infiltration of the tissues lateral to the ischium. There is evidence of cortical erosion and bone loss of posterior and inferior ischium, consistent with osteomyelitis. on abx picc cont tx micro reviewed plan repeat CT - as below improved Again demonstrated is a wound in the right ischial region. This appears to contain some packing material. This appears to penetrate much less deeply than on the prior study, as no deep gas bubbles are evident. Density in the area appears to be scar tissue rather than fluid. Again demonstrated is erosion of the adjacent ischium, extent of which appears to be unchanged. Again demonstrated is extensive heterotopic ossification and degenerative change about the left hip. Again demonstrated is a left inguinal hernia that contains only fat. Again demonstrated is broad-based diastasis of the rectus abdominis tendon above the umbilicus, bordering on herniation. There is also a tiny fat-containing umbilical hernia. There is evidence of prior surgery in the region. There is no evidence of obstruction. There is distention of the rectum by feces. This appears less severe than on the prior study. Again demonstrated is extensive colonic diverticulosis. No evidence of diverticulitis. What appears to be a short normal appendix is evident. No small bowel distention. No free or loculated intraperitoneal gas or fluid is evident. No small bowel wall thickening. There is a gastrostomy in place which appears well- positioned. There is evidence of prior gastric surgery. The distal esophagus and duodenum are unremarkable. The gallbladder contains gallstones. Lack of IV contrast limits assessment of the solid organs. The liver is grossly unremarkable. The pancreas is atrophic and nearly completely fatty replaced. The spleen is not demonstrated, although there is evidence of some scattered splenic tissue in the left upper quadrant. The adrenals are unremarkable. Right renal staghorn calculi and other calyceal calculi are again demonstrated. Left renal parapelvic cyst or cysts are again demonstrated. A small peripheral calyceal calculus is also demonstrated in the left kidney. No retroperitoneal or mesenteric mass or adenopathy. The bladder is empty, contains a Peters catheter. Calculi are again demonstrated within the bladder. The prostate is enlarged. The lung bases demonstrate considerable consolidation involving the right lower lobe. There is also a component of volume loss. There is some posterior dependent atelectasis of the left lung as well. The bones demonstrate degenerative spondylosis changes, appearing similar to the previous study. There is a stable mild compression fracture deformity of the L3 vertebral body. Impression: Right ischial region wound, consistent with known clinical history of decubitus changes in this area. This appears to demonstrate some interim healing since previous study. Stable erosive changes of the adjacent ischium. No definite evidence of abscess, although evaluation for such is limited given the absence of IV contrast administration. Evidence of rectal fecal impaction, less severe than on the previous study. Diverticulosis, also previously reported Cholelithiasis, also previously reported Unchanged right renal staghorn and other calculi, small left renal calculus Right lower lobe consolidation and volume loss. Less extensive atelectasis of the posterior left lung Broad-based diastasis of the rectus abdominis tendon bordering on herniation, nonobstructive, also previously reported Absent spleen. There is evidence of some scattered splenic tissue in the left upper quadrant, also previously reported Other findings as noted, including gastrostomy, evidence of prior gastric surgery, atrophic fatty replaced pancreas, left renal parapelvic cyst or cysts, Peters catheter, enlarged prostate, bladder calculi, degenerative spondylosis, stable L3 vertebral body mild compression fracture deformity (4) UTI (urinary tract infection) (5) Pneumonia (6) Septic shock (7) Urinary retention (8) Hematuria (9) Hematuria (10) Failure to thrive (11) Fecal impaction (12) Hypernatremia (13) Bowel obstruction (14) Bowel obstruction (15) Leukocytosis (16) Respiratory failure (17) Sepsis (18) Sepsis (19) Respiratory failure, chronic (20) SBO (small bowel obstruction) (21) Hypertension (22) Pneumonia (23) [address]1274 (24) Pneumonia (25) Pneumonia (26) Encephalopathy acute (27) Encephalopathy chronic (28) Abnormal laboratory test result (29) Diabetes mellitus out of control (30) BPH (benign prostatic hyperplasia) (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
[2020-03-24 16:00] VITALS: BP 115/58
--- NOTE | 2020-03-24 17:08 | General Progress Note ---
Subjective ROS Limited/Unobtainable: No Constitutional: Reports: malaise, weakness HEENT: Reports: no symptoms Cardiovascular: Reports: no symptoms Respiratory: Reports: cough Gastrointestinal/Abdominal: Reports: difficulty swallowing Genitourinary: Reports: no symptoms Neurologic/Psychiatric: Reports: pre-existing deficit Endocrine: Reports: no symptoms Hematologic/Lymphatic: Reports: no symptoms Allergies: Coded Allergies: No Known Allergies (Unverified , 02/11/13) All Systems: reviewed and negative except above Subjective no changes. stable on the vent. no fever or chills. no sob. tolerating feeds. BS stable. Na elevated. nonverbal and unresponsive at baseline. remains on iv/inhaled abx. wbc trending down. Na elevated. Objective Last 24 Hour Vital Signs Date Time Temp Pulse Resp B/P (MAP) Pulse Ox O2 Delivery O2 Flow Rate FiO2 03/24/20 16:00 65 03/24/20 15:20 56 16 Mechanical Ventilator 35 03/24/20 12:00 Mechanical Ventilator 03/24/20 12:00 40 03/24/20 11:34 65 03/24/20 11:34 98.1 88 16 119/64 (82) 100 03/24/20 10:30 64 16 100 Mechanical Ventilator 40 64 16 40 03/24/20 09:33 72 132/91 03/24/20 09:32 72 132/91 03/24/20 08:00 40 03/24/20 08:00 50 03/24/20 08:00 97.3 72 16 132/91 (105) 100 03/24/20 08:00 Mechanical Ventilator 03/24/20 07:30 72 17 40 03/24/20 04:00 98.6 59 16 119/60 (79) 100 03/24/20 04:00 40 03/24/20 04:00 Mechanical Ventilator 03/24/20 03:26 53 03/24/20 03:19 51 15 40 03/24/20 00:00 99.0 67 16 117/71 (86) 100 03/24/20 00:00 Mechanical Ventilator 03/24/20 00:00 40 03/23/20 23:29 67 03/23/20 22:50 68 16 100 Mechanical Ventilator 40 71 16 40 03/23/20 22:14 119/67 03/23/20 20:22 64 130/66 03/23/20 20:00 98.7 77 16 130/66 (87) 100 03/23/20 20:00 40 03/23/20 20:00 71 03/23/20 20:00 Mechanical Ventilator 03/23/20 19:46 72 16 40 Intake and Output 03/23/20 03/24/20 19:00 07:00 Intake Total 1017.5 ml 1435.5 ml Output Total 801 ml 1000 ml Balance 216.5 ml 435.5 ml Free Water 200 ml 480 ml IV Total 82.5 ml 415.5 ml Tube Feeding 495 ml 540 ml Other 240 ml Output Urine Total 800 ml 1000 ml Stool Total 1 ml Laboratory Tests 03/23/20 18:06: POC Whole Blood Glucose [Pending] 03/23/20 19:00: Stool Occult Blood Negative 03/23/20 23:14: POC Whole Blood Glucose 139H 03/24/20 02:40: White Blood Count 13.2H, Red Blood Count 3.45L, Hemoglobin 9.0L, Hematocrit 28.7 L, Mean Corpuscular Volume 83, Mean Corpuscular Hemoglobin 26.0L, Mean Corpuscular Hemoglobin Concent 31.3L, Red Cell Distribution Width 17.5H, Platelet Count 541H, Mean Platelet Volume 8.3, Neutrophils (%) (Auto) 64.5, Lymphocytes (%) (Auto) 20.2, Monocytes (%) (Auto) 8.9, Eosinophils (%) (Auto) 5.5H, Basophils (%) (Auto) 0.8, Sodium Level 148H, Potassium Level 3.6, Chloride Level 112H, Carbon Dioxide Level 28, Anion Gap 8, Blood Urea Nitrogen 27H, Creatinine 0.9, Estimat Glomerular Filtration Rate > 60, Glucose Level 102, Calcium Level 9.2, Total Bilirubin 0.3, Aspartate Amino Transf (AST/SGOT) 16, Alanine Aminotransferase (ALT/SGPT) 27, Alkaline Phosphatase 77, Total Protein 6.4, Albumin 2.3L, Globulin 4.1, Albumin/Globulin Ratio 0.6L 03/24/20 04:57: POC Whole Blood Glucose 107H Height (Feet): 5 Height (Inches): 10.00 Weight (Pounds): 207 Objective General Appearance: WD/WN, lethargic, confused EENT: PERRL/EOMI, normal ENT inspection Neck: normal alignment Cardiovascular: normal rate, regular rhythm Respiratory/Chest: chest wall non-tender, lungs clear, normal breath sounds, no respiratory distress Abdomen: normal bowel sounds, non tender, soft, no organomegaly Edema: no edema noted Arm (L), no edema noted Arm (R) Neurologic: disoriented, unresponsive, aphasia Lymphatic: normal anterior cervical (L), normal anterior cervical (R) Assessment/Plan Problem List: (1) Anemia ICD Codes: D64.9 - Anemia, unspecified SNOMED: 908989385 (2) Decubital ulcer ICD Codes: L89.90 - Pressure ulcer of unspecified site, unspecified stage SNOMED: 410446608 (3) Leukocytosis ICD Codes: D72.829 - Elevated white blood cell count, unspecified SNOMED: 418441987 (4) UTI (urinary tract infection) ICD Codes: N39.0 - Urinary tract infection, site not specified SNOMED: 08704353 (5) Pneumonia ICD Codes: J18.9 - Pneumonia, unspecified organism SNOMED: 848438311 (6) Urinary retention ICD Codes: R33.9 - Retention of urine, unspecified SNOMED: 173436552 (7) Pneumonia ICD Codes: J18.9 - Pneumonia, unspecified organism SNOMED: 782120726 (8) Encephalopathy chronic ICD Codes: G93.49 - Encephalopathy chronic SNOMED: 05163818 (9) Diabetes mellitus out of control ICD Codes: E11.9 - Diabetes mellitus out of control SNOMED: 010998484 (10) BPH (benign prostatic hyperplasia) ICD Codes: N40.0 - Benign prostatic hyperplasia without lower urinary tract symptoms SNOMED: 675309127 (11) Stage 4 skin ulcer of sacral region ICD Codes: L98.429 - Non-pressure chronic ulcer of back with unspecified severity SNOMED: 77258946, 993273154 (12) Septicemia (13) Urosepsis Status: stable Assessment/Plan: cont iv/inhaled abx last day iv zosyn today vent support wean as able suctioning resp rx wound care turn q2 gt feeds monitor residuals increase water flushes/ivf monitor labs insulin coverage epo and iron monitor labs turn q2 dc planning if inhaled gent can be completed at [facility] d/w jeanette Diaz. aware of poc. Jeremiah Perkins MD Mar 24, 2020 17:08
--- NOTE | 2020-03-24 20:08 | Cardiology Report ---
APPROVED REPORT EKG Measurement Heart [id number] VT 156P [id number] <Conclusion> Sinus rhythm with occasional premature ventricular complexes Otherwise normal ECG
--- NOTE | 2020-03-24 20:19 | General Progress Note ---
Subjective Allergies: Coded Allergies: No Known Allergies (Unverified , 02/11/13) Subjective calm unresponsive on TF Less GT site leak Objective Last 24 Hour Vital Signs Date Time Temp Pulse Resp B/P (MAP) Pulse Ox O2 Delivery O2 Flow Rate FiO2 03/24/20 18:45 55 16 35 03/24/20 16:00 Mechanical Ventilator 03/24/20 16:00 65 03/24/20 16:00 98.1 67 16 115/58 (77) 99 03/24/20 16:00 40 03/24/20 15:20 56 16 Mechanical Ventilator 35 03/24/20 12:00 Mechanical Ventilator 03/24/20 12:00 40 03/24/20 11:34 65 03/24/20 11:34 98.1 88 16 119/64 (82) 100 03/24/20 10:30 64 16 100 Mechanical Ventilator 40 64 16 40 03/24/20 09:33 72 132/91 03/24/20 09:32 72 132/91 03/24/20 08:00 40 03/24/20 08:00 50 03/24/20 08:00 97.3 72 16 132/91 (105) 100 03/24/20 08:00 Mechanical Ventilator 03/24/20 07:30 72 17 40 03/24/20 04:00 98.6 59 16 119/60 (79) 100 03/24/20 04:00 40 03/24/20 04:00 Mechanical Ventilator 03/24/20 03:26 53 03/24/20 03:19 51 15 40 03/24/20 00:00 99.0 67 16 117/71 (86) 100 03/24/20 00:00 Mechanical Ventilator 03/24/20 00:00 40 03/23/20 23:29 67 03/23/20 22:50 68 16 100 Mechanical Ventilator 40 71 16 40 03/23/20 22:14 119/67 03/23/20 20:22 64 130/66 Intake and Output 03/23/20 03/24/20 19:00 07:00 Intake Total 1017.5 ml 1435.5 ml Output Total 801 ml 1000 ml Balance 216.5 ml 435.5 ml Free Water 200 ml 480 ml IV Total 82.5 ml 415.5 ml Tube Feeding 495 ml 540 ml Other 240 ml Output Urine Total 800 ml 1000 ml Stool Total 1 ml Laboratory Tests 03/23/20 23:14: POC Whole Blood Glucose 139H 03/24/20 02:40: White Blood Count 13.2H, Red Blood Count 3.45L, Hemoglobin 9.0L, Hematocrit 2 8.7L, Mean Corpuscular Volume 83, Mean Corpuscular Hemoglobin 26.0L, Mean Corpuscular Hemoglobin Concent 31.3L, Red Cell Distribution Width 17.5H, Platelet Count 541H, Mean Platelet Volume 8.3, Neutrophils (%) (Auto) 64.5, Lymphocytes (%) (Auto) 20.2, Monocytes (%) (Auto) 8.9, Eosinophils (%) (Auto) 5.5H, Basophils (%) (Auto) 0.8, Sodium Level 148H, Potassium Level 3.6, Chloride Level 112H, Carbon Dioxide Level 28, Anion Gap 8, Blood Urea Nitrogen 27H, Creat inine 0.9, Estimat Glomerular Filtration Rate > 60, Glucose Level 102, Calcium Level 9.2, Total Bilirubin 0.3, Aspartate Amino Transf (AST/SGOT) 16, Alanine Aminotransferase (ALT/SGPT) 27, Alkaline Phosphatase 77, Total Protein 6.4, Albumin 2.3L, Globulin 4.1, Albumin/Globulin Ratio 0.6L 03/24/20 04:57: POC Whole Blood Glucose 107H Height (Feet): 5 Height (Inches): 10.00 Weight (Pounds): 207 Objective Elderly man NCAT supple CTA RR abd distended, (+) abd wall hernia (+) GT with some GT site acid dermatitis, improved no edema Assessment/Plan Status: stable Assessment/Plan: Assessment - Anoxic encephalopathy - dysphagia / s/p GT - GT site acid dermatitis - improving - Resp failure, s/p trach - CVA - HTN - DM - Leukocytosis, sepsis - Osteo - Poor px Recommendations - s/p GT change - GT feeds - Monitor GT for leaking - GT dressing changed to TID - GT site care - Elevate HOB - Rose Capps MD Mar 24, 2020 20:19
--- NOTE | 2020-03-24 21:57 | Cardiology Progress Note ---
Subjective DATE OF SERVICE: Mar 24, 2020 On vent support via trach - Tcollar trials BP range remains stable Monitor: sinus WBC count improved Objective Last 24 Hour Vital Signs Date Time Temp Pulse Resp B/P (MAP) Pulse Ox O2 Delivery O2 Flow Rate FiO2 03/24/20 18:45 55 16 35 03/24/20 16:00 Mechanical Ventilator 03/24/20 16:00 65 03/24/20 16:00 98.1 67 16 115/58 (77) 99 03/24/20 16:00 40 03/24/20 15:20 56 16 Mechanical Ventilator 35 03/24/20 12:00 Mechanical Ventilator 03/24/20 12:00 40 03/24/20 11:34 65 03/24/20 11:34 98.1 88 16 119/64 (82) 100 03/24/20 10:30 64 16 100 Mechanical Ventilator 40 64 16 40 03/24/20 09:33 72 132/91 03/24/20 09:32 72 132/91 03/24/20 08:00 40 03/24/20 08:00 50 03/24/20 08:00 97.3 72 16 132/91 (105) 100 03/24/20 08:00 Mechanical Ventilator 03/24/20 07:30 72 17 40 03/24/20 04:00 98.6 59 16 119/60 (79) 100 03/24/20 04:00 40 03/24/20 04:00 Mechanical Ventilator 03/24/20 03:26 53 03/24/20 03:19 51 15 40 03/24/20 00:00 99.0 67 16 117/71 (86) 100 03/24/20 00:00 Mechanical Ventilator 03/24/20 00:00 40 03/23/20 23:29 67 03/23/20 22:50 68 16 100 Mechanical Ventilator 40 71 16 40 03/23/20 22:14 119/67 ROS: no change from my dictation of 03/15/20 HEENT: Mechanically Ventilated, Thick Trach secretions RHYTHM: NSR LUNGS: bilateral rhonchi CARDIAC: regular rhythm, normal S1 and S2, rapid rate, tachycardia ABDOMEN: non tender, soft, no organomegaly, G-Tube intact EXTREMITIES: non-tender, No edema, other - sacral decub; Neuro unresponsive Laboratory Tests Test 03/23/20 23:14 03/24/20 02:40 03/24/20 04:57 POC Whole Blood Glucose 139 MG/DL (74-106) H 107 MG/DL (74-106) H White Blood Count 13.2 K/UL (4.8-10.8) H Red Blood Count 3.45 M/UL (4.70-6.10) L Hemoglobin 9.0 G/DL (14.2-18.0) L Hematocrit 28.7 % (42.0-52.0) L Mean Corpuscular Volume 83 FL (80-99) Mean Corpuscular Hemoglobin 26.0 PG (27.0-31.0) L Mean Corpuscular Hemoglobin Concent 31.3 G/DL (32.0-36.0) L Red Cell Distribution Width 17.5 % (11.6-14.8) H Platelet Count 541 K/UL (150-450) H Mean Platelet Volume 8.3 FL (6.5-10.1) Neutrophils (%) (Auto) 64.5 % (45.0-75.0) Lymphocytes (%) (Auto) 20.2 % (20.0-45.0) Monocytes (%) (Auto) 8.9 % (1.0-10.0) Eosinophils (%) (Auto) 5.5 % (0.0-3.0) H Basophils (%) (Auto) 0.8 % (0.0-2.0) Sodium Level 148 MMOL/L (136-145) H Potassium Level 3.6 MMOL/L (3.5-5.1) Chloride Level 112 MMOL/L (98-107) H Carbon Dioxide Level 28 MMOL/L (21-32) Anion Gap 8 mmol/L (5-15) Blood Urea Nitrogen 27 mg/dL (7-18) H Creatinine 0.9 MG/DL (0.55-1.30) Estimat Glomerular Filtration Rate > 60 mL/min (>60) Glucose Level 102 MG/DL (74-106) Calcium Level 9.2 MG/DL (8.5-10.1) Total Bilirubin 0.3 MG/DL (0.2-1.0) Aspartate Amino Transf (AST/SGOT) 16 U/L (15-37) Alanine Aminotransferase (ALT/SGPT) 27 U/L (12-78) Alkaline Phosphatase 77 U/L (46-116) Total Protein 6.4 G/DL (6.4-8.2) Albumin 2.3 G/DL (3.4-5.0) L Globulin 4.1 g/dL Albumin/Globulin Ratio 0.6 (1.0-2.7) L Assessment/Plan Assessment/Plan Severe sepsis Fungal cystitis Respiratory failure with trach Chronic encephalopathy HC assoc PNA Hypertension/HHC now with stable BP trend Acute/chronic diastolic CHF Anemia Dysphagia with GTube Dehydration/hypernatremia corrected BPH Anti-fungal therapy per ID Vent Resp Rx Trend BNP; adjust fluids accordingly - add'l free water by Gtube DVT prophyl Nutritional support by Gtube Consolidate BP meds - Titrate doxazosin, No resumption of tamsulosin and hydralazine Brady Burks MD Mar 24, 2020 21:57
--- NOTE | 2020-03-25 06:15 | Discharge Summary ---
DATE OF ADMISSION: 03/15/2020 DATE OF DISCHARGE: 03/24/2020 ADMISSION DIAGNOSES: 1. Sepsis. 2. Respiratory failure. 3. Toxic metabolic encephalopathy. 4. Leukocytosis. 5. Anemia. 6. Diabetes. 7. Hypoxemic respiratory failure. 8. Sacral osteomyelitis. DISCHARGE DIAGNOSES: 1. Sepsis. 2. Respiratory failure. 3. Toxic metabolic encephalopathy. 4. Leukocytosis. 5. Anemia. 6. Diabetes. 7. Hypoxemic respiratory failure. 8. Sacral osteomyelitis. HOSPITAL COURSE: The patient was admitted with complaints of fevers, shortness of breath, and leukocytosis. He was diagnosed with pneumonia. He received broad-spectrum IV antibiotics. ID, pulmonary, and cardiology consultations were obtained. The patient was maintained on G-tube feedings. On discharge, he was stable. He will be discharged to complete 3 additional days of inhaled gentamicin. He completed all of his IV antibiotics while in-house. Discharge plan was discussed with the patient's son, Joe. He was in agreement. DISCHARGE MEDICATIONS: Please see discharge med list for discharge meds. DIET: G-tube feedings. ACTIVITY: Ad-staci. PLAN: The patient is to follow up in 1 to 2 days at [facility] facility. Jeremiah Perkins M.D. DR: Reagan JOB#: [id number] CC:
== END 2020-03-24 19:29 | DRG 870 ==
LOC: EDBD 11:21 → EMR 11:40 → 2W 12:25 → EDBEDREQ 12:50
PROC: 5A1955Z Respiratory Ventilation, Greater than 96 Consecutive Hours (ICD-10-PCS; principal; 2020-03-15)
DX: A41.9 Sepsis, unspecified organism (principal); L89.154 Pressure ulcer of sacral region, stage 4; L89.314 Pressure ulcer of right buttock, stage 4; J18.9 Pneumonia, unspecified organism; J96.91 Respiratory failure, unspecified with hypoxia; G92 Toxic encephalopathy; E43 Unspecified severe protein-calorie malnutrition; I50.33 Acute on chronic diastolic (congestive) heart failure; G93.1 Anoxic brain damage, not elsewhere classified; N39.0 Urinary tract infection, site not specified; M46.28 Osteomyelitis of vertebra, sacral and sacrococcygeal region; J95.09 Other tracheostomy complication; Z43.1 Encounter for attention to gastrostomy; B37.49 Other urogenital candidiasis; Z99.11 Dependence on respirator [ventilator] status; R65.20 Severe sepsis without septic shock; L89.322 Pressure ulcer of left buttock, stage 2; D64.9 Anemia, unspecified; E11.9 Type 2 diabetes mellitus without complications; L89.899 Pressure ulcer of other site, unspecified stage; L89.156 Pressure-induced deep tissue damage of sacral region; R56.9 Unspecified convulsions; Y83.3 Surgical operation with formation of external stoma as the cause of abnormal reaction of the patient, or of later complication, without mention of misadventure at the time of the procedure; J44.9 Chronic obstructive pulmonary disease, unspecified; I49.3 Ventricular premature depolarization; R00.0 Tachycardia, unspecified; R13.10 Dysphagia, unspecified; E86.1 Hypovolemia; E86.0 Dehydration; I69.319 Unspecified symptoms and signs involving cognitive functions following cerebral infarction; F01.50 Vascular dementia, unspecified severity, without behavioral disturbance, psychotic disturbance, mood disturbance, and anxiety; Y95 Nosocomial condition; I11.0 Hypertensive heart disease with heart failure; B95.5 Unspecified streptococcus as the cause of diseases classified elsewhere; K57.90 Diverticulosis of intestine, part unspecified, without perforation or abscess without bleeding; K80.20 Calculus of gallbladder without cholecystitis without obstruction; N20.0 Calculus of kidney; L30.8 Other specified dermatitis
CPT/HCPCS: 36415; 71045; 74176; 80048; 80053; 80202; 81003; 82150; 82270; 82803; 82962; 83540; 83550; 83605; 83690; 83735; 83880; 84484; 85007; 85025; 85610; 85651; 85730; 86140; 86850; 86900; 86901; 87040; 87070; 87081; 87086; 87181; 87205; 93005; 94002; 94003; 94664; 96361; 96365; 96368; 99285; J1815; J7030; S5561; U0002